=== PATIENT | female | born 1945 | race Caucasian/White ===

== ENCOUNTER 2022-12-23 10:56 | Outpatient (OUT) | payer OTHER, SELFPAY ==
--- NOTE | 2022-12-23 11:00 | XR_ITS ---
The [address] [address] Patient Name: ASHLYN CHIN MRN: [id number] date: 1945 Sex: F Assigned Patient Location: [facility] Current Patient Location: [facility] Accession/Order Number: [id number] Exam Date: 12/23/2022 11:20 Report Date: 12/23/2022 12:21 At the request of: DOMINIC HERBERT Procedure: XR DEXA axial skeleton EXAMINATION: XR DEXA axial skeleton HISTORY: Estrogen Deficiency E28.39 COMPARISON: DEXA bone densitometry 03/30/2018 TECHNIQUE: Dual-energy X-ray absorptiometry (DXA) was performed. FINDINGS: SPINE ANALYSIS: Average bone mineral density is 0.924 g/cm2. T-score (standard deviation relative to young adult mean): -2.3 . -0.6% change since prior study. HIP ANALYSIS: Lowest bone mineral density is within the left femoral neck, 0.714 g/cm2. T-score (standard deviation relative to young adult mean): -2.3 . -2.5% change since prior study. XR/XR DEXA axial skeleton IMPRESSION: [employer] Classification: Osteopenia - Moderate Fracture Risk Electronically authenticated by: CAROLINE QUIROGA Date: 12/23/2022 12:21
== END 2022-12-23 10:57 | disposition home or self-care (01) ==
LOC: RAD 10:56
PROVIDERS: PCP Internal Medicine; Visit Provider Internal Medicine
DX: E28.39 Other primary ovarian failure (principal); M85.80 Other specified disorders of bone density and structure, unspecified site
CPT/HCPCS: 77080

== ENCOUNTER 2023-07-09 14:26 | Outpatient (OUT) | payer MEDICARE, SELFPAY ==
--- NOTE | 2023-07-09 14:30 | MM_ITS ---
Patient Name: ASHLYN CHIN MR#: [id number] : 1945 Exam Date: 07/09/2023 Ordering Doctor: DR. JACKIE BELTRÁN M.D. RADIOLOGY REPORT PROCEDURE: MM TOMOSYNTHESIS SCREENING LT COMPARISON: MG MAMM DX 3D LT CAD, 05/28/2021. MG MAMM SCREEN LT 3D CAD, 06/03/2022. INDICATIONS: Screening Calculator Name NCI Breast Cancer Risk Assessment Tool 5 Year Breast Cancer Risk n/a% Lifetime Breast Cancer Risk n/a% Personal Breast Cancer Yes, BREAST CA RT BREAST AGE65 Personal Ovarian Cancer No Treatments MASECTOMY RT BREAST Family Cancers Sister with breast cancer at age 58; Aunt-maternal with breast cancer at age ~40. LOCATION: [facility] BREAST COMPOSITION: There are scattered areas of fibroglandular density. FINDINGS: DIAGNOSTIC CATEGORY 2--BENIGN FINDING. NO CHANGE FROM COMPARISON. Scattered benign-appearing calcifications are present. Scattered benign-appearing lymph nodes are present. RIGHT BREAST: No significant suspicious finding. LEFT BREAST: No significant suspicious finding. RECOMMENDATIONS: ROUTINE MAMMOGRAM AND CLINICAL EVALUATION IN 12 MONTHS. PLEASE NOTE: A NORMAL MAMMOGRAM DOES NOT EXCLUDE THE POSSIBILITY OF BREAST CANCER. A CLINICALLY SUSPICIOUS PALPABLE LUMP SHOULD BE BIOPSIED. Dictated by: Khoa Kennedy MD on 07/09/2023 at 14:57 Approved by: Khoa Kennedy MD on 07/09/2023 at 15:00
--- OUTSIDE RECORDS SUMMARY | 2023-07-09 14:40 | XMS_ITS | CCD ---
Author Organization [facility] Care Team Providers Care Channel Program Manager Name Role Phone SHAW FRANCOIS Unavailable Unavailable SHAW FRANCOIS Unavailable Unavailable SHAW FRANCOIS Unavailable Unavailable SHAW FRANCOIS Unavailable Unavailable Alessandro II Shaw Primary Care Provider DO Naya Weber Attending Provider Shaw Francois II Primary Care Provider ABGARRETT ALVAREZ Admitting Unavailable GARRETT BELTRÁN Attending DR SHAW Lopez Primary Care Unavailable TAINA, DR NAYA Lewis Consulting Unavailable ABHYANKAR, GARRETT Consulting Unavailable Shaw Francois II Primary Care Provider ABKIM, GARRETT Attending Unavailable LEIGH ANN, GARRETT Referring Unavailable SHAW FRANCOIS II Primary Care Unavailable GARRETT BELTRÁN Referring Unavailable SHAW FRANCOIS II Primary Care Unavailable JACINTO GARDNER Attending Unavailable JR. CYN, FRANCI Martinez Attending Unavaila ayde ADDISON JR., FRANCI Martinez Referring UnavailJeevan Burnette II Admitting UnavailJeevan Bryan II Attending UnavailShaw Avila Primary Care Unavailable MARIA ELENA Francois Primary Care Provider MD Jeevan Sanchez II Attending Provider Allergies Allergy Classification Reported Allergen(s) Allergy Type Date of Onset Reaction(s) Facility (3 sources) Sulfonamides (Antibiotic); Translations: [SULFA (SULFONAMIDE ANTIBIOTICS)] Drug Allergy 2 Rash, Swelling [facility] Work Phone: (1 source) Sulfonamides (Antibiotic) Drug allergy (disorder) 6 [facility] Repository (1 source) Sulfonamides (Antibiotic) Drug allergy (disorder) 2 [facility] Repository Medications Current Medications Medication Drug Class(es) Dates Sig (Normalized) Sig (Original) cholecalciferol 0.01 mg oral capsule (3 sources) Vitamin D Start: 05-22-2021 take 1 capsule by mouth once daily Cholecalciferol (Vitamin D3) (Vitamin D3) 10 mcg (400 unit) Capsule Active 10 MCG PO Daily May 22, 2021 12:00am Cholecalciferol, Vitamin D3, 25 mcg (1,000 unit) cap Take by mouth once daily. 0 Active Comment on above: Take by mouth once d aily. levothyroxine sodium 0.125 mg oral tablet (3 sources) l-Thyroxine Start: 03-13-19 take 1 tablet by mouth once daily Levothyroxine (Euthyrox) 125 mcg tablet Active 125 MCG PO Daily May 22, 2021 12:00am Comment on above: Take 125 mcg by mout h once daily. losartan potassium 25 mg oral tablet (3 sources) Angiotensin 2 Receptor Teri Start: 02-09-20 15 take 25 mg by mouth once daily Losartan Active 25 MG PO Daily May 22, 2021 12:00am Comment on above: Take 25 mg by mouth once daily. Multivitamin-Minerals- Lutein (1 source) Start: 05-23-19 22 take 1 tablet by mouth once daily Multivitamin-Minerals -Lutein Active 1 TAB PO Daily May 22, 2021 12:00am omeprazole 40 mg delayed release oral capsule (3 sources) Proton Pump Inhibitor Start: 06-26-19 24 take 1 capsule by mouth twice daily Omeprazole Active 1 CAP PO Twice daily June 26, 2023 12:00am [employer] CAPSULE Orally bid; Note: Source Status: Start; Refills: 11; Qty: 60 Capsule; Provider: Gus Severino omeprazole (PRIL OSEC) 20 mg capsule Take 20 mg by mouth once daily. Takes every other day. 0 Active Comment on above: Take 20 mg by mouth once daily. Takes every other day. sertraline 100 mg oral tablet (3 sources) Serotonin Reuptake Inhibitor Start: 05-22-2021 take 50 mg by mouth once daily Sertraline Active 50 MG PO Daily May 22, 2021 12:00am Start: 04-17-2011 take 1 tablet by maria de jesus th once daily sertraline (ZOLOFT) 50 mg tablet Take 1 tablet by mouth once daily. 0 04/17/2011 Active Comment on above: Take 1 tablet by maria de jesus th once daily. Completed/Discontinued Medications Medication Drug Class(es) Dates Sig (Normalized) Sig (Original) Multivitamins-Mine rals-Lutein (CENTRUM SILVER) ORAL Tab (1 source) Start: 04-17-2011 take 1 tablet by mouth once daily Multivitamins-Min erals-Lutein (CENTRUM SILVER) ORAL Tab Take 1 tablet by mouth once daily. 90 tablet 4 04/17/2011 Active Comment on above: Take 1 tablet by maria de jesus th once daily. Multivitamins-Mine rals-Lutein (CENTRUM SILVER) tab (1 source) Start: 04-17-2011 take 1 tablet by mouth once daily Multivitamins-Min erals-Lutein (CENTRUM SILVER) tab Take 1 tablet by mouth once daily. 90 tablet 4 04/17/2011 Active Comment on above: Take 1 tablet by maria de jesus th once daily. raNITIdine (2 sources) Histamine-2 Receptor Antagonist RANITIDINE HCL (ZANTAC ORAL) Take by mouth. 0 Active Comment on above: Take by mouth. Problems Active Problems Problem Classification Problem Date Documented Date Episodic/Chronic Cancer of breast (4 sources) Malignant neoplasm of female breast; Translations: [Malignant neoplasm of unspecified site of right female breast] Onset: 04-19-2011 Chronic Cancer of breast (2 sources) History of malignant neoplasm of breast; Translations: [Personal history of malignant neoplasm of breast] Onset: 06-10-2022 Episodic Esophageal disorders (2 sources) Gastroesophageal reflux disease; Translations: [Gastro-esophageal reflux disease without esophagitis] 01-22-2023 Chronic Osteoarthritis (2 sources) Osteoarthritis of right knee joint; Translations: [Unilateral primary osteoarthritis, right knee] 06-26-2023 Chronic Other lower respiratory disease (1 source) Abnormal breath sounds; Translations: [Other abnormalities of breathing] Episodic Other lower respiratory disease (1 source) Elevated diaphragm; Translations: [Disorders of diaphragm] Episodic Other non-traumatic joint disorders (1 source) Pain in left hip; Translations: [Pain in left hip] Onset: 06-26-2023 Episodic Other non-traumatic joint disorders (2 sources) Pain in right knee; Translations: [Right knee pain] Onset: 06-26-2023 06-25-2023 Episodic Other non-traumatic joint disorders (1 source) Hip pain; Translations: [Pain in left hip] 06-25-2023 Episodic Other screening for suspected conditions (not mental disorders or infectious disease) (2 sources) Patient encounter status; Translations: [Encounter for other screening for malignant neoplasm of breast] Episodic Past or Other Problems Problem Classification Problem Date Documented Da te Episodic/Chronic Other bone disease and musculoskeletal deformities (2 sources) Osteopenia; Translations: [Other specified disorders of bone density and structure, unspecified site] Onset: 07-27-2013 07-27-2013 Episodic Results Test Name Value Interpretation Reference Range Facility XR hip LT min 2V(w/wo pelvis )*on 06-26-2023 XR hip LT min 2V(w/wo pelvis)* [facility] [address] [place] [address] XRay Report Signed Patient: Nadia Chin MR#: [id number] : 1945 Acct:[id number] Age/Sex: 77 / F ADM Date: 06/26/23 Loc: [facility] Room: Type: [facility] Attending Dr: Jeevan Sanchez II, MD Copies to: Jeevan Sanchez MD Ordering Provider: Jeevan Sanchez MD Date of Service: 06/26/23 XR/XR hip LT min 2V(w/wo pelvis)*: M25.552 - Pain in left hip XR hip LT min 2V(w/wo pelvis)* 06/26/2023 12:25 PM SIGNS AND SYMPTOMS: M25.552 - Pain in left hip PROTOCOL: Frontal and crosstable lateral views of the pelvis and left hip COMPARISON: None FINDINGS: The bony ring of the pelvis is intact. There is no fracture or dislocation. There is mild enthesophyte formation along the ischial tuberosities. Changes are noted in the sacroiliac joints, left greater than right. Degenerative changes are noted in the lower lumbar spine. XR/XR hip LT min 2V(w/wo pelvis)* IMPRESSION: No fracture or dislocation. Degenerative changes are noted, greatest in the left sacroiliac joint. Impression dictated by: Ashwin Brown M.D.06/26/2023 4:03 PM Dictation Location: RADIO-PC-07 Transcribed By: MATIAS 06/26/23 160 Dictated By: Ashwin Brown II, MD 06/26/231600 Signed By: 06/26/23 160 Normal [facility] XR knee RT 4V*on 06-26-2023 XR knee RT 4V* [facility] [address] [place] [address] XRay Report Signed Patient: Nadia Chin MR#: [id number] : 1945 Acct:[id number] Age/Sex: 77 / F ADM Date: 06/26/23 Loc: [facility] [place] Room: Type: [facility] Attending Dr: Jeevan Sanchez II, MD Copies to: Jeevan Sanchez MD Ordering Provider: Jeevan Sanchez MD Date of Service: 06/26/23 XR/XR knee RT 4V*: M25.561 - Pain in right knee 4 views right knee plain film COMPARISON: None HISTORY: Right knee pain for one year. ACUTE FINDINGS: No acute findings DEGENERATIVE CHANGE: Marked narrowing of the lateral compartment. Marginal spurring. SOFT TISSUE FINDINGS: Unremarkable JOINT EFFUSION: Tiny joint effusion POSTOP CHANGES: None BONE MINERALIZATION: Adequate XR/XR knee RT 4V* IMPRESSION: Moderate multilevel degenerative changes Impression dictated by: Max Gates M.D.06/26/2023 4:01 PM Dictation Location: RADIO-PC-12 Transcribed By: MATIAS 06/26/23 160 Dictated By: Max Gates DO 06/26/23 1559 Signed By: 06/26/23 160 Normal [facility] CNOVSPon 06-10-2022 CNOVSP Visit (SP) Office ([facility]) NADIA CHIN ([id number]) 1945 F Date Time Provider Department 06/10/22 10:30 AM GARRETT BELTRÁN During your visit today, we recorded the following information about you: Temperature Pulse Respiration Blood pressure 97.4 degrees 68/minute 16/minute 133/63 Weight Height 80.7 kg 1.68 m Garrett Beltrán MD 06/16/2022 4:20 PM Signed NAME: Nadia Chin CLINIC NO.: [id number] DATE OF SERVICE: June 10, 2022 (Leigh Ann) Some elements in this clinic note that are critical to medical decision making have been carefully reviewed and included from a prior clinic note dated: June 04, 2021 Referring Provider: Shaw Francois II CC: Right breast cancer ER/OR positive, HER-2/crescencio negative diagnosed May 2011. ASSESSMENT: 76 year old woman with early stage right breast cancer receiving no radiation and having completed 5 years of adjuvant hormone suppression in June 2016, with no evidence of recurrence. The fairly large thyroid nodule was evaluated by Dr. Hall in late 2019 and has required no intervention. PLAN: RTC PRN Order mammogram Left side in 1 year but CC: to Dr. Francois and Follow up with Dr. Francois for labs and exam in 1 year. HPI: Updated Visit, June 10, 2022: Doing well with no changes. No complaints. Exam completed today and noted below. She is 11 years out and will follow with us as needed. Updated Visit, June 04, 2021: Nadia is 75 yo and returns for follow up of Rt breast cancer. She has no complaints and continues to do well. Mammogram is benign. 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 She didn't have a Mammogram this past year and so we will reschedule to for 6 months and I will see her again. Her biggest complaint is bilateral knee pain especially in the mornings. Updated Visit, 2019: Nadia is 74 yo and returns in follow up for her history of right breast cancer which was diagnosed after an abnormal mammogram in 2011. The biopsy of a 1.1 cm right breast lesion at 12:00 was consistent with invasive ductal carcinoma with DCIS. Receptor status ER OR positive. HER-2/crescencio was negative. Coleman lymph nodes were negative. Mastectomy done 05/14/2011 also showed a 0.5 cm grade 2 ER/OR positive HER-2/crescencio negative invasive ductal carcinoma with 0 lymph nodes positive for disease. She completed 5 years of hormone therapy with anastrozole in June 2016. Her Oncotype DX score was 3. She received no radiation or chemotherapy. 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 Ultrasound of the neck demonstrates greater than 2-1/2 cm nodules that will need to be worked up. Dyspnea appears to be resolved. REVIEW OF SYSTEMS Per HPI and otherwise negative by full review of organ systems. ECOG PERFORMANCE STATUS: 0 PHYSICAL EXAMINATION: Vitals: BP 133/63 Pulse 68 Temp (Src) 97.4 (Temporal) Resp 16 Ht 5' 6.142 (1.68m) Wt 178 lb (80.7kg) SpO2 97% BMI 28.61 kg/(m2). Body surface area is 1.94 meters squared. Exam limited to gross visualization where appropriate. Gen.: This is an age-appropriate patient in no acute distress. Head: Appears atraumatic with no visible lesions. Eyes: Pupils equally round and reactive to light, extraocular muscles are intact. Neck: Supple. Mouth: Masked. Respiratory: Appears to be respiring comfortably. Neurologic: Nonfocal to gross visualization. Alert and oriented ?3. Psychiatric: No evidence of inappropriate anxiety or depression. Skin: Visible areas of skin without rash, lesions, wounds or petechiae. Lymph node exam: No appreciable lymphadenopathy in cervical supraclavicular or axillary lymph node chains. Chaperoned Breast exam (Itzel Lua) with right mastectomy scar and normal left female breast. ALLERGIES: ALLERGIES Allergen Reactions Sulfa (Sulfonamide * Rash, Swelling MEDICATIONS: omeprazole (PRILOSEC) 20 mg capsule Take 20 mg by mouth once daily. Takes every other day. levothyroxine (SYNTHROID) 125 mcg tablet Take 125 mcg by mouth once daily. losartan (COZAAR) 25 mg tablet Take 25 mg by mouth once daily. Cholecalciferol, Vitamin D3, 25 mcg (1,000 unit) cap Take by mouth once daily. sertraline (ZOLOFT) 50 mg tablet Take 1 tablet by mouth once daily. Multivitamins-Minerals -Lutein (CENTRUM SILVER) tab Take 1 tablet by mouth once daily. RANITIDINE HCL (ZANTAC ORAL) Take by mouth. (Patient not taking: Reported on 06/10/2022) LABORATORY VALUES: WBC (k/uL) Date Value 06/04/2021 6.65 RBC (m/uL) Date Value 06/04/2021 4.61 Hemoglobin (g/dL) Date Value 06/04/2021 (more content not included)... Normal [facility] MG MAMM SCREEN LT 3D CADon 0 06-03-2022 MG MAMM SCREEN LT 3D CAD Patient: NADIA CHIN Exam Date: 06/03/2022 : 1945 Gender:F Ordering : DR. GARRETT BELTRÁN M.D. Admission #: [id number] Family : DR SHAW FRANCOIS M.D. Order #: [id number] CLICK HERE TO VIEW EXAM RADIOLOGY REPORT PROCEDURE: MAMMOGRAM SCREENING LEFT 3D CAD COMPARISON: MG MAMM LT DIAG W CAD, 10/20/2019. MG MAMM DX 3D LT CAD, 05/28/2021. INDICATIONS: Screening mammography Calculator Name NCI Breast Cancer Risk Assessment Tool 5 Year Breast Cancer Risk n/a% Lifetime Breast Cancer Risk n/a% Personal Breast Cancer Yes, BREAST CA RT BREAST AGE65 Personal Ovarian Cancer No Treatments MASECTOMY RT BREAST Family Cancers Sister with breast cancer at age 58; Aunt-maternal with breast cancer at age 40. LOCATION: [facility] BREAST COMPOSITION: Scattered areas fibroglandular density. FINDINGS: DIAGNOSTIC CATEGORY 2--BENIGN FINDING. NO CHANGE FROM COMPARISON. LEFT BREAST: No significant suspicious finding. Scattered benign-appearing calcifications are present. RECOMMENDATIONS: ROUTINE MAMMOGRAM AND CLINICAL EVALUATION IN 12 MONTHS. PLEASE NOTE: A NORMAL MAMMOGRAM DOES NOT EXCLUDE THE POSSIBILITY OF BREAST CANCER. A CLINICALLY SUSPICIOUS PALPABLE LUMP SHOULD BE BIOPSIED. Dictated by: Naya eKnnedy MD on 06/03/2022 at 11:46 Approved by: Naya Kennedy MD on 06/03/2022 at 11:55 Normal [facility] COVID-19 Positive/NegativeOr dered By: Naya Weber on 05-21-2021 SARS-CoV-2 (COVID-19) N gene ALBINA+probe Ql (Resp) Negative Negative [facility] Comment on above: Testing for SARS-CoV -2 by RT-PCRThis test was developed and its performance characteristics determined by [employer] and validated at the [facility]. This test has not been FDA cleared or approved. This test has been authorized by FDA under an Emergency Use Authorization (EUA). This test has been validated in accordance with the FDA's Guidance Document (Policy for Diagnostics Testing in Laboratories Certified to Perform High Complexity Testing under CLIA prior to Emergency Use Authorization for Coronavirus Disease-2019 during the Public Health Emergency) issued on May 13, 2019. This test is only authorized for the duration of time the declaration that circumstances exist justifying the authorization of the emergency use of in vitro diagnostic tests for detection of SARS-CoV-2 virus and/or diagnosis of COVID-19 infection under section 564(b)(1) of the Act, 21 U.S.C. 360bbb-3(b)(1), unless the authorization is terminated or revoked sooner. C-Reactive Proteinon 022 CRP IV <0.3 Normal [facility] Comment on above: Performed By: #### C BC, CRP, ESR, RF, CMP, URIC #### [facility] [address] [place], [place] [id number] Complete Blood Counton 04-25 Erythrocyte distribution width (RBC) [Ratio] 12.8 % Normal 11.0-15.0 [facility] Comment on above: Performed By: #### C BC, CRP, ESR, RF, CMP, URIC #### [facility] [address] [place], [place] [id number] Hematocrit (Bld) [Volume fraction] 43.7 % Normal 35.0-47.0 [facility] Comment on above: Performed By: #### C BC, CRP, ESR, RF, CMP, URIC #### [facility] [address] [place], [place] [id number] Hemoglobin (Bld) [Mass/Vol] 14.5 g/dL Normal 11.6-15.5 [facility] Comment on above: Performed By: #### C BC, CRP, ESR, RF, CMP, URIC #### [facility] [address] [place], [place] [id number] MCH (RBC) [Entitic mass] 29.5 pg Normal 27.0-33.0 [facility] Comment on above: Performed By: #### C BC, CRP, ESR, RF, CMP, URIC #### [facility] [address] [place], [place] [id number] MCHC (RBC) [Mass/Vol] 33.2 g/dL Normal 32.0-36.0 [facility] Comment on above: Performed By: #### C BC, CRP, ESR, RF, CMP, URIC #### [facility] [address] [place], [place] [id number] MCV (RBC) [Entitic vol] 89 fL Normal 80-100 [facility] Comment on above: Performed By: #### C BC, CRP, ESR, RF, CMP, URIC #### [facility] [address] [place], [place] [id number] Platelet mean volume (Bld) [Entitic vol] 9.00 fL Normal 7.50-12.50 [facility] Comment on above: Performed By: #### C BC, CRP, ESR, RF, CMP, URIC #### [facility] [address] [place], [place] [id number] Platelets (Bld) [#/Vol] 201 10*3/uL Normal 140-400 [facility] Comment on above: Performed By: #### C BC, CRP, ESR, RF, CMP, URIC #### [facility] [address] [place], [place] [id number] RBC (Bld) [#/Vol] 4.92 10*6/uL Normal 3.90-5.20 [facility] Comment on above: Performed By: #### C BC, CRP, ESR, RF, CMP, URIC #### [facility] [address] [place], [place] [id number] RDW-SD 41.6 fL Normal 37.0-50.0 [facility] Comment on above: Performed By: #### C BC, CRP, ESR, RF, CMP, URIC #### [facility] [address] [place], [place] [id number] WBC (Bld) [#/Vol] 7.3 10*3/uL Normal 3.8-11.0 [facility] [place] [facility] Comment on above: Performed By: #### C BC, CRP, ESR, RF, CMP, URIC #### [facility] [address] [place], [place] [id number] Comprehensive Metabolic Pane brittni 04-25-2021 Albumin [Mass/Vol] 4.5 g/dL Normal 3.6-5.1 Lilian prabhakar [place] [facility] Comment on above: Performed By: #### C BC, CRP, ESR, RF, CMP, URIC #### [facility] [address] [place], [place] [id number] Albumin/Globulin [Mass ratio] 2.1 {ratio} Normal 1.0-2.5 [facility] Comment on above: Performed By: #### C BC, CRP, ESR, RF, CMP, URIC #### [facility] [address] [place], [place] [id number] ALP [Catalytic activity/Vol] 64 U/L Normal 35-119 [facility] Comment on above: Performed By: #### C BC, CRP, ESR, RF, CMP, URIC #### [facility] [address] [place], [place] [id number] ALT [Catalytic activity/Vol] 12 U/L Normal 6-33 [facility] Comment on above: Result Comment: 01/10 Female reference range changed. Performed By: #### C BC, CRP, ESR, RF, CMP, URIC #### [facility] [address] [place], [place] [id number] Anion gap [Moles/Vol] 17 mmol/L Normal 12-20 [facility] Comment on above: Result Comment: Effe ctive 02/15/2019 reference range changed. Performed By: #### C BC, CRP, ESR, RF, CMP, URIC #### [facility] [address] [place], [place] [id number] AST [Catalytic activity/Vol] 14 U/L Normal 9-34 [facility] Comment on above: Performed By: #### C BC, CRP, ESR, RF, CMP, URIC #### [facility] [address] [place], [place] [id number] Bilirubin [Mass/Vol] 0.67 mg/dL Normal 0.30-1.20 [facility] Comment on above: Performed By: #### C BC, CRP, ESR, RF, CMP, URIC #### [facility] [address] [place], [place] [id number] BUN/CREA 22 Ratio Normal 6-22 [facility] Comment on above: Performed By: #### C BC, CRP, ESR, RF, CMP, URIC #### [facility] [address] [place], [place] [id number] Calcium [Mass/Vol] 9.2 mg/dL Normal 8.6-10.2 [facility] Comment on above: Performed By: #### C BC, CRP, ESR, RF, CMP, URIC #### [facility] [address] [place], [place] [id number] Chloride [Moles/Vol] 104 mmol/L Normal 98-107 [facility] Comment on above: Performed By: #### C BC, CRP, ESR, RF, CMP, URIC #### [facility] [address] [place], [place] [id number] CO2 [Moles/Vol] 24 mmol/L Normal 20-31 [facility] Comment on above: Performed By: #### C BC, CRP, ESR, RF, CMP, URIC #### [facility] [address] [place], [place] [id number] Creatinine [Mass/Vol] 0.7 mg/dL Normal 0.6-1.4 [facility] Comment on above: Performed By: #### C BC, CRP, ESR, RF, CMP, URIC #### [facility] [address] [place], [place] [id number] eGFRAA 95 mL/min/1.73m2 Normal >60 [facility] Comment on above: Performed By: #### C BC, CRP, ESR, RF, CMP, URIC #### [facility] [address] [place], [place] [id number] eGFRNAA 79 mL/min/1.73m2 Normal >60 [place] [facility] Comment on above: Performed By: #### C BC, CRP, ESR, RF, CMP, URIC #### [facility] [address] [place], [place] [id number] Globulin (S) [Mass/Vol] 2.1 g/dL Normal 1.9-3.7 [facility] Comment on above: Performed By: #### C BC, CRP, ESR, RF, CMP, URIC #### [facility] [address] [place], [place] [id number] Glucose [Mass/Vol] 98 mg/dL Normal 65-99 [facility] Comment on above: Result Comment: For FASTING Glucose --- ADA reference ranges: Normal 65-99 mg/dl Prediabetes 100-125 Diabetes >/= 126 Performed By: #### C BC, CRP, ESR, RF, CMP, URIC #### [facility] [address] [place], [place] [id number] Potassium [Moles/Vol] 4.2 mmol/L Normal 3.5-5.5 [facility] Comment on above: Performed By: #### C BC, CRP, ESR, RF, CMP, URIC #### [facility] [address] [place], [place] [id number] Protein [Mass/Vol] 6.6 g/dL Normal 6.1-8.1 [facility] Comment on above: Performed By: #### C BC, CRP, ESR, RF, CMP, URIC #### [facility] [address] [place], [place] [id number] Sodium [Moles/Vol] 141 mmol/L Normal 135-146 [facility] Comment on above: Performed By: #### C BC, CRP, ESR, RF, CMP, URIC #### [facility] [address] [place], [place] [id number] Urea nitrogen [Mass/Vol] 16 mg/dL Normal 7-25 [facility] Comment on above: Performed By: #### C BC, CRP, ESR, RF, CMP, URIC #### [facility] [address] [place], [place] [id number] Q - CARRIE MULTIPLEX W/ REFLEX TO 11 ANTIBODY CASCADEon 03-16-2022 ANACHOICE(R) SCREEN Negative Normal NEGATIVE [facility] Comment on above: Order Comment: [facility] Testing performed at: [facility], [employer] [facility], [address], [address], [place], [address], Nutrient Management Specialist: Joe Hickey MD [facility] Collection Date/Time: [facility] Results Received Date/Time: [facility] Reported Date/Time: Result Comment: A ne gative CARRIE Multiplex, with Reflex to 11 Antibody Webb indicates the absence of detectable antibodies to component analytes consisting of double stranded DNA (dsDNA), chromatin, ribonucleoprotein (DIRECTOR OF IT OPERATIONS), Boyd/DIRECTOR OF IT OPERATIONS (Sm/DIRECTOR OF IT OPERATIONS), Boyd (Sm), SS-A, SS-B, Ruma-1, centromere B, Scl-70 and ribosomal P. A negative result should be interpreted in the context of the clinical and laboratory findings and does not rule out autoimmune disease characterized by other autoantibody specificities such as rheumatoid arthritis, autoimmune hepatitis, primary biliary cirrhosis, autoimmune thyroiditis, Inocente's disease, pernicious anemia, autoimmune neuropathies, vasculitis, celiac disease, and bullous disease. For additional information, please refer to [email or web address]/faq/RIL326 (This link is being provided for informational/ educational purposes only.) Performed By: #### 1 [id number] #### [facility] [address] [place] [address] RBC Sedimentation Rateon ESR (Bld) [Velocity] 7.00 mm/h Normal 0.00-30.00 [facility] Comment on above: Performed By: #### C BC, CRP, ESR, RF, CMP, URIC #### [facility] [address] [place] [id number] Rheumatoid Factoron 04-26-19 RF <10 Normal [facility] Comment on above: Performed By: #### C BC, CRP, ESR, RF, CMP, URIC #### [facility] [address] [id number] Uric Acidon 04-25-2021 URIC 4.8 mg/dL Normal 2.5-7.0 [facility] Comment on above: Result Comment: Refe rence range change 12/27/2016. Prior reference range F 2.4-5.7mg/dL. M 3.4-7.0 mg/dL. Performed By: #### C BC, CRP, ESR, RF, CMP, URIC #### [facility] [address] [facility] KATY Dotson [id number] Linda 10-03-2019 CNPN Telephone (FVPRAD) NADIA CHIN ( ) 1945 F Date Time Provider Department 10/03/19 KENNEDY GALAN FVPRAD During your visit today, we recorded the following information about you: Kennedy Galan MD 10/03/2019 1:30 PM Signed Please call the patient and pass on the [employer] message I wrote today to her (in case she does not check my chart). Please send a copy of her CT chest to Dr Beltrán's office with a request to follow-up on the thyroid, kidney and breast abnormalities. Thank you, Kennedy Bruce LPN 10/04/2019 8:[address] Mckeon is with [facility] at [facility] in [place]. LVM with office triage nurse to have review CT in patients chart. Gave nurse pod extension if any further questions. Allergies As of Date: 10/03/2019 Noted Allergy Reaction SULFA (SULFONAMIDE ANTIBIOTICS) 04/17/2011 2 - Rash 7 - Swelling Date Reviewed: 07/26/2019 Reviewed by: Paty (Rn) DEBI Lerma - Fully Assessed Reason for Visit: to [Other] Prescriptions as of 10/03/2019 Sig: OMEPRAZOLE 20 MG CAPSULE,ELICEO* Take 20 mg by mouth once jennyfer* LEVOTHYROXINE 100 MCG TABLET Take 100 mcg by mouth once da* ZANTAC ORAL Take by mouth. LOSARTAN 25 MG TABLET Take 25 mg by mouth once jennyfer* * CHOLECALCIFEROL (VITAMIN D3) * Take by mouth once daily. * SERTRALINE 50 MG TABLET Take 1 tablet by mouth once d* * MULTIVITAMIN-MINERALS- LUTEIN * Take 1 tablet by mouth once d* Problem List As Of Date 10/03/2019 Noted Resolved Breast cancer, right breast [C50.911] 04/19/2011 Osteopenia [M85.80] 07/27/2013 Encounter Status:Closed by SAMANTHA ZACARIAS LPN on 11/15/[address] [facility] [address] CHEST WO IVCONon 09-28-[address] CHEST WO IVCON * * *Final Report* * * * * * SEE BOTTOM OF REPORT FOR ADDENDED TEXT * * * DATE OF EXAM: Sep 28 2019 9:28AM [facility] 0541 - CT CHEST WO IVCON / PROCEDURE REASON: Shortness of breath * * * * Physician Interpretation * * * * * * * * * * * * ORIGINAL REPORT * * * * * * * * EXAMINATION: CHEST CT WITHOUT CONTRAST CLINICAL HISTORY: History of right breast cancer in 2011 status post mastectomy and hormonal therapy. ?No radiation or chemotherapy was necessary; exertional dyspnea; question right middle lobe atelectasis and elevated right hemidiaphragm Technique: Spiral CT acquisition of the chest from the thoracic inlet to the upper abdomen without contrast. MQ: [id number] CT Dose-Length Product: 249 mGy*cm CT Dose Reduction Employed: Automated exposure control (AEC) Comparison: Chest x-rays dated 07/02/2019, 04/17/2019; outside left screening mammogram dated 04/05/2019 RESULT: Limitations: None. Lines, tubes, and devices: None. Lung parenchyma and airways: No consolidation. No suspicious pulmonary nodule. The central airways are patent. Pleural space: No pleural effusion. No pleural thickening. There is mild eventration of the right hemidiaphragm anteriorly, stable since 04/17/2011. Lower neck, lymph nodes, and mediastinum: The left thyroid lobe is greater than the right. There are 0.9 cm hypodense right lower thyroid lesion and 1.8 cm hypodense left lower thyroid lesion. No lymphadenopathy in the supraclavicular, axillary, mediastinal, or hilar regions. Heart, pericardium, and thoracic vessels: The thoracic aorta and main pulmonary artery are normal in caliber. The cardiac chambers are normal in size. Mild coronary artery atherosclerotic calcifications are noted, although the study is not optimized for coronary assessment. There is mild pericardial effusion anteriorly. Bones and soft tissues: There is mild degenerative change of the thoracic spine. No destructive bone lesion. Chest wall is unremarkable. The right breast is surgically absent. There is 1.5 cm asymmetric left retroareolar breast parenchyma (2:84). Suggest clinical correlation and consider follow-up left diagnostic mammogram and possible left breast ultrasound if indicated. Upper abdomen: There is 3.3 x 2.8 cm hypodense cortical lesion in the visualized right upper kidney medially, suggestive of renal cyst and can be further evaluated with renal ultrasound. Production Painter (topogram) images: No additional findings. IMPRESSION: NO CT EVIDENCE OF ACUTE CARDIOPULMONARY PROCESS. NO CT EVIDENCE OF RIGHT MIDDLE LOBE ATELECTASIS. MILD EVENTRATION OF THE RIGHT HEMIDIAPHRAGM ANTERIORLY, STABLE SINCE 04/17/2011. 0.9 CM HYPODENSE RIGHT LOWER THYROID LESION AND 1.8 CM HYPODENSE LEFT LOWER THYROID LESION. SUGGEST THYROID ULTRASOUND FOR ADDITIONAL EVALUATION. FINDINGS SUGGESTIVE OF 3.3 X 2.8 CM RIGHT UPPER RENAL CORTICAL CYST MEDIALLY. SUGGEST RENAL ULTRASOUND FOR ADDITIONAL EVALUATION. 1.5 CM ASYMMETRIC LEFT RETROAREOLAR BREAST PARENCHYMA. SUGGEST CLINICAL CORRELATION AND CONSIDER FOLLOW-UP LEFT DIAGNOSTIC MAMMOGRAM AND POSSIBLE LEFT BREAST ULTRASOUND IF INDICATED. Incidental Finding: Follow-up with dedicated thyroid Ultrasound for this small < 1.0cm incidentally detected thyroid nodule(s) in a patient with INSERT MEDICAL REASON. [employer] 2015 * * * * * * * * ADDENDUM #1 * * * * * * * * COMPARISON: Chest x-rays dated 07/02/2019, 04/17/2011; outside left screening mammogram dated 04/05/2019 Heating And Ventilating Drafter: PSCKristine Transcribe Date/Time: Sep 28 2019 10:35A Dictated by : BILLIE EISENBERG MD This examination was interpreted and the report reviewed and electronically signed by: BILLIE EISENBERG MD on Sep 28 2019 9:50AM EST This document has been addended by: BILLIE EISENBERG MD on Sep 28 2019 10:36AM EST [id number] Normal [facility] GI FLUORO CHEST SNIFF TESTon 09-28-2019 GI FLUORO CHEST SNIFF TEST * * *Final Report* * * DATE OF EXAM: Sep 28 2019 10:15AM X 5536 - GI FLUORO CHEST SNIFF TEST / PROCEDURE REASON: multiple diagnoses * * * * Physician Interpretation * * * * FLUOROSCOPIC SNIFF TEST: HISTORY: Dyspnea on exertion, elevated right hemidiaphragm TECHNIQUE: Video Fluoroscopy was provided while the patient's breathing quietly at rest, deep breathing and rapid inspiration with a closed mouth (sniffs), in frontal and lateral standing position. Fluoroscopic Radiation Summary: Plane A, Air Kerma: 14.5 mGy Plane B, Air Kerma: 0.0 mGy Dose Area Product (DAP): 0.0 mGy*cm^2 Fluoro time: 0:38 min:sec COMPARISON: Chest CT from the same day, chest x-rays dated 07/02/2019, 04/17/2011 RESULT: There is anterior eventration of the right hemidiaphragm. There is symmetric bilateral diaphragmatic movement during quiet breathing, deep breathing and sniff test. IMPRESSION: ANTERIOR EVENTRATION OF THE RIGHT HEMIDIAPHRAGM. NO FLUOROSCOPIC EVIDENCE OF RIGHT DIAPHRAGMATIC PARALYSIS. Heating And Ventilating Drafter: PSCB Transcribe Date/Time: Sep 28 2019 10:30A Dictated by : BILLIE EISENBERG MD This examination was interpreted and the report reviewed and electronically signed by: BILLIE EISENBERG MD on Sep 28 2019 10:35AM EST [id number] [facility] PROGRESSon 09-28-2019 PROGRESS HNO ID: [id number] Author: Lima Ambrocio (Rt) Service: Radiology Author Type: Baseball Inspector Type: Progress Notes Filed: 09/28/2019 10:19 AM Note Text: Radiology Service Progress Note PATIENT NAME: Nadia Chin DATE OF SERVICE: September 28, 2019 TIME: 10:18 AM PATIENT IDENTITY VERIFICATION COMPLETED USING TWO (2) IDENTIFIERS: Name and Date of confirmed by patient verbally. FALL SCREENING: Has the patient had 2 falls in the last year or 1 fall with injury or currently using an Ambulatory Assistive Device (Walker, Cane, Wheelchair, Crutches, etc.)? No PATIENT GENDER DATA: Female. status: : No status: NO. PATIENT RELEVANT IMPLANT DATA REVIEWED: Not Applicable RADIOLOGY DEPARTMENT: General X-ray: Exam(s) Completed: GI/ Procedure(s): SNIFF TEST PERIPHERAL IV DATA: Not applicable SIGNED BY: RT Zee September 28, 2019 10:18 AM [facility] PROGRESS HNO ID: [id number] Author: Cathi Robles (Rt) Service: Radiology Author Type: Baseball Inspector Type: Progress Notes Filed: 09/28/2019 9:28 AM Note Text: Radiology Service Progress Note PATIENT NAME: Nadia Chin DATE OF SERVICE: September 28, 2019 TIME: 9:25 AM PATIENT IDENTITY VERIFICATION COMPLETED USING TWO (2) IDENTIFIERS: Name and Date of confirmed by patient verbally. FALL SCREENING: Has the patient had 2 falls in the last year or 1 fall with injury or currently using an Ambulatory Assistive Device (Walker, Cane, Wheelchair, Crutches, etc.)? No PATIENT GENDER DATA: Female. status: : No status: NO. PATIENT RELEVANT IMPLANT DATA REVIEWED: Not Applicable RADIOLOGY DEPARTMENT: CT; Exam(s) Completed: Chest PERIPHERAL IV DATA: Not applicable SIGNED BY: RT Lokesh September 28, 2019 9:25 AM [facility] Coding Summary.on 05-09-2017 Coding Summary. CODING DATE: 05/09/2017 FINAL [facility] STATUS: Home (Routine DC) PAYOR: Medicare APC DESCRIPTION 5523 Level 3 Imaging without Contrast ADMIT DX: REASON FOR VISIT DX: M54.12 Radiculopathy, cervical region FINAL DX: PRINCIPAL: M54.12 Radiculopathy, cervical region SECONDARY: PYMT PROC APC STAT DESCRIPTION DOCTOR NAME DATE NOTE: The code number assigned matches the documented diagnosis and / or procedure in the patient's chart. However, the narrative phrase printed from the coding software may appear abbreviated, or result in slightly different terminology. Coded By: Katya Navarrete Date Saved: 05/09/2017 07:09 am [facility] Vital Signs Date Time Vital Sign Value Performing Clinician Facility 06-26-2023 11:43-0400 Body height 170.18 cm II Shaw Francois Work Phone: [facility] 06-26-2023 11:43-0400 Body mass index (BMI) [Ratio] 27.3 kg/m2 MARIA ELENA Francois Work Phone: [facility] 06-26-2023 11:43-0400 Body weight 79.37 kg II Shaw Francois Work Phone: [facility] 06-10-2022 10:20-0400 Body height 168 cm Garrett Beltrán MD Work Phone: [facility] 06-10-2022 10:20-0400 Body temperature 97.39 [degF] Garrett Beltrán MD Work Phone: [facility] 06-10-2022 10:20-0400 Body weight 80.74 kg Garrett Beltrán MD Work Phone: [facility] 06-10-2022 10:20-0400 Diastolic blood pressure 63 mm[Hg] Garrett Beltrán MD Work Phone: [facility] 06-10-2022 10:20-0400 Heart rate 68 /min Garrett Beltrán MD Work Phone: [facility] 06-10-2022 10:20-0400 Respiratory rate 16 /min Garrett Beltrán MD Work Phone: [facility] 06-10-2022 10:20-0400 SaO2% (BldA) [Mass fraction] 97 % Garrett Beltrán MD Work Phone: [facility] 06-10-2022 10:20-0400 Systolic blood pressure 133 mm[Hg] Garrett Beltrán MD Work Phone: [facility] 06-04-2021 10:09-0400 Body height 168 cm Garrett Beltrán MD Work Phone: [facility] 06-04-2021 10:09-0400 Body temperature 97.5 [degF] Garrett Beltrán MD Work Phone: [facility] 06-04-2021 10:09-0400 Body weight 83.01 kg Garrett Beltrán MD Work Phone: [facility] 06-04-2021 10:09-0400 Diastolic blood pressure 53 mm[Hg] Garrett Beltrán MD Work Phone: [facility] 06-04-2021 10:09-0400 Heart rate 66 /min Garrett Beltrán MD Work Phone: [facility] 06-04-2021 10:09-0400 Respiratory rate 16 /min Garrett Beltrán MD Work Phone: [facility] 06-04-2021 10:09-0400 SaO2% (BldA) [Mass fraction] 95 % Garrett Beltrán MD Work Phone: [facility] 06-04-2021 10:09-0400 Systolic blood pressure 128 mm[Hg] Garrett Beltrán MD Work Phone: [facility] Encounters Encounter Date Encounter Type Care Provider Facility Start: 06-26-2023 End: 06-26-2023 Patient encounter procedure II Shaw Francois Work Phone: [facility] Work Phone: Start: 06-26-2023 End: 06-26-2023 ambulatory Jeevan Sanchez II Facility:[facility] Start: 06-26-2023 End: 06-26-2023 ambulatory II Shaw Francois Work Phone: [facility] Work Phone: Start: 06-26-2023 End: 06-26-2023 Patient encounter procedure II Shaw Francois Work Phone: [facility] Start: 04-23-2023 End: 04-23-2023 ambulatory FRANCI LAMB Not Available Start: 04-15-2023 End: 04-15-2023 ambulatory JACINTO GARDNER Not Available Start: 12-18-2022 End: 12-19-2022 ambulatory FRANCI LAMB Not Available Start: 06-10-2022 End: 06-10-2022 ambulatory GARRETT BELTRÁN Facility:[facility] Start: 06-10-2022 End: 06-10-2022 Office outpatient visit 25 minutes Garrett Beltrán MD Work Phone: Hematology/Oncology Comment on above: History of breast ca ncer (Primary Dx); Breast screening; Malignant 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, estrogen receptor positive, unspecified site of breast (HCC) Start: 06-03-2022 End: 06-04-2022 ambulatory GARRETT BELTRÁN Facility: Start: 06-04-2021 End: 06-04-2021 ambulatory Garrett Beltrán MD Work Phone: Hematology/Oncology Comment on above: Breast screening (Pr imary Dx); Malignant 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, estrogen receptor positive, unspecified site of breast (HCC); Abnormal breath sounds; Elevated hemidiaphragm Start: 06-04-2021 End: 06-04-2021 Patient encounter procedure Garrett Beltrán MD Work Phone: [facility] Start: 05-21-2021 End: 05-21-2021 Patient encounter procedure II Shaw Francois Work Phone: [facility] Start: 05-08-2017 End: 05-09-2017 Ambulatory SHAW FRANCOIS Facility:[facility] Procedures Date Procedure Procedure Detail Performing Clinician Start: 06-26-2023 Plain X-ray of left hip II Shaw Francois Work Phone: Start: 06-26-2023 X-ray of right knee II Shaw Francois Work Phone: Start: 2019 Adult depression screening assessment Garrett Beltrán MD Work Phone: Plan of Treatment Date Care Activity Detail Author Start: 06-04-2024 DIABETES SCREEN DIABETES SCREEN [facility] Start: 06-11-2023 End: 06-11-2023 CBC W Auto Differential panel - Blood CBC + DIFF Lab Routine Breast screening Expected: 06/11/2023 (Approximate), Expires: 06/11/2023 [facility] Work Phone: Comment on above: Expected: 06/11/2023 (Approximate), Expires: 06/11/2023 Start: 06-11-2023 End: 06-11-2023 Comprehensive metabolic 2000 panel - Serum or Plasma COMP METABOLIC PANEL Lab Routine Breast screening Expected: 06/11/2023 (Approximate), Expires: 06/11/2023 [facility] Work Phone: Comment on above: Expected: 06/11/2023 (Approximate), Expires: 06/11/2023 Start: 06-11-2023 End: 07-10-2023 TORRES SCREENING TORRES SCREENING Radiology Routine Breast screening Expected: 06/11/2023 (Approximate), Expires: 07/10/2023 [facility] Work Phone: Comment on above: Expected: 06/11/2023 (Approximate), Expires: 07/10/2023 Start: 06-03-2022 End: 06-04-2022 CBC W Auto Differential panel - Blood CBC + DIFF Lab Routine Breast screening Malignant 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, estrogen receptor positive, unspecified site of breast (HCC) Expected: 06/03/2022 (Approximate), Expires: 06/04/2022 [facility] Work Phone: Comment on above: Expected: 06/03/2022 (Approximate), Expires: 06/04/2022 Start: 06-03-2022 End: 06-04-2022 Comprehensive metabolic 2000 panel - Serum or Plasma COMP METABOLIC PANEL Lab Routine Breast screening Malignant 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, estrogen receptor positive, unspecified site of breast (HCC) Expected: 06/03/2022 (Approximate), Expires: 06/04/2022 [facility] Work Phone: Comment on above: Expected: 06/03/2022 (Approximate), Expires: 06/04/2022 Start: 05-31-2022 End: 07-04-2022 Screening mammography bi 2-view breast inc cad TORRES SCREENING Radiology Routine Breast screening Malignant 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, estrogen receptor positive, unspecified site of breast (HCC) Expected: 05/31/2022 (Approximate), Expires: 07/04/2022 [facility] Work Phone: Comment on above: Expected: 05/31/2022 (Approximate), Expires: 07/04/2022 Start: 02-10-2022 ADVANCE DIRECTIVE DISCUSSION ADVANCE DIRECTIVE DISCUSSION [facility] Start: 02-10-2022 DEPRESSION ASSESSMENT DEPRESSION ASS ESSMENT [facility] Start: 02-10-2021 ADVANCE DIRECTIVE DISCUSSION ADVANCE DIRECTIVE DISCUSSION [facility] Start: 11-09-2020 Adult depression screening assessment DEPRESSION SCREENING [facility] Start: 11-09-2008 BONE DENSITY BONE DENSITY [facility] Start: 11-09-1993 SHINGRIX VACCINE (1 of 2) SHINGRIX VACCINE (1 of 2) [facility] Start: 11-09-1962 Urine microalbumin profile DTAP,TDAP,TD (1 - Tdap) [facility] Start: 11-09-1961 HEPATITIS C SCREENING HEPATITIS C SC ZACH [facility] Immunizations Immunization Date Immunization Notes Care Provider Fa cili 11-24-2020 COVID-19 mRNA, Comir leonie (Pfizer) MARIA ELENA Francois Work Phone: [facility] 11-17-2020 influenza (aIIV4) vaccine, age 65+ yr, quadrivalent, PF (FLUAD QUADRIVALENT) Garrett Beltrán MD Work Phone: [facility] 03-31-2020 COVID-19 mRNA, Comir leonie (Pfizer) MARIA ELENA Francois Work Phone: [facility] 03-10-2020 COVID-19 mRNA, Comir leonie (Pfizer) MARIA ELENA Francois Work Phone: [facility] 12-07-2019 influenza, high-dose , quadrivalent vaccine (FLUZONE HIGH DOSE QUADRIVALENT) Garrett Beltrán MD Work Phone: [facility] 12-07-2019 pneumococcal conjuga te vaccine, 13 valreyna Beltrán MD Work Phone: [facility] 11-24-2019 influenza, seasonal, injectable Garrett Beltrán MD Work Phone: [facility] 11-11-2019 pneumococcal conjuga te vaccine, 13 valent Garrett Beltrán MD Work Phone: [facility] 11-14-2018 influenza, high dose seasonal, preservative-free Garrett Beltrán MD Work Phone: [facility] 11-24-2017 influenza, high dose seasonal, preservative-free Garrett Beltrán MD Work Phone: [facility] 12-11-2016 influenza, high dose seasonal, preservative-free Garrett Beltrán MD Work Phone: [facility] 11-28-2015 influenza, injectabl e, quadrivalent, contains preservative Garrett Beltrán MD Work Phone: [facility] 07-11-2012 pneumococcal polysaccharide vaccine, 23 valent Garrett Beltrán MD Work Phone: [facility] 11-28-2008 influenza virus vacc ine, whole virus Garrett Beltrán MD Work Phone: [facility] Payers Date Payer Category Payer Self-pay [id number] 2023 Unknown [id number] 2022 Medicare [facility]IC[facility] [id number] 2022-Present [phone] [address] [place] [address] O [id number] 2021 Unknown ANTHEM BLUE CROS S AND BLUE SHIELD ANTHEM MEDIBLUE O [id number] 2021-Present [phone] [address] [place] [address] O [id number] 2020 Unknown [id number] 2017 Unknown [id number] 1945 Unknown [id number] 1945 Unknown [id number] 1945 Unknown [id number] 1945 Unknown [id number] 9 Unknown [id number] Social History Date Type Detail Facility Tobacco smoking status MEIS Unknown if ever smoked [facility] Work Phone: Start: 1945 Sex Assigned At Female [facility] Start: 05-15-2011 End: 03-19-2017 Tobacco smoking status NHIS Never smoked tobacco [facility] Start: 06-04-2021 Alcohol intake Current drinke r of alcohol (finding) [facility] Start: 1945 Sex Assigned At Not on file [facility] Start: 05-25-2021 End: 06-04-2021 Exposure to SARS-CoV-2 (event) Not sure [facility] Start: 05-15-2011 Tobacco use and exposure Smokeless tobacco non-user [facility] NEGATED: Highlighted row [facility] Clinical Notes 06-04-2021 to 06-10-2022 Patient InstructionsGarrett Beltrán MD - 06/10/2022 10:21 AM Ana Beltrán MD - 06/04/2021 10:47 AM Jeniffer Cervantes MA - 06/04/2021 10:20 AM EDT Note Date & Type Note Facility 06-10-2022 Note HNO ID: [id number] Author: Garrett Beltrán MD Service: ? Author Type: Physician Type: Progress Notes Filed: 06/16/2022 4:20 PM Note Text: NAME: Nadia Chin [facility] NO.: [id number] DATE OF SERVICE: June 10, 2022 (Leigh Ann) Some elements in this clinic note that are critical to medical decision making have been carefully reviewed and included from a prior clinic note dated: June 04, 2021 Referring Provider: Shaw Francois II CC: Right breast cancer ER/OR positive, HER-2/crescencio negative diagnosed May 2011. ASSESSMENT: 76 year old woman with early stage right breast cancer receiving no radiation and having completed 5 years of adjuvant hormone suppression in June 2016, with no evidence of recurrence. The fairly large thyroid nodule was evaluated by Dr. Hall in late 2019 and has required no intervention. PLAN: RTC PRN Order mammogram Left side in 1 year but CC: to Dr. Francois and Follow up with Dr. Francois for labs and exam in 1 year. HPI: Updated Visit, June 10, 2022: Doing well with no changes. No complaints. Exam completed today and noted below. She is 11 years out and will follow with us as needed. Updated Visit, June 04, 2021: Nadia is 75 yo and returns for follow up of Rt breast cancer. She has no complaints and continues to do well. Mammogram is benign. 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 She didn't have a Mammogram this past year and so we will reschedule to for 6 months and I will see her again. Her biggest complaint is bilateral knee pain especially in the mornings. Updated Visit, 2019: Nadia is 74 yo and returns in follow up for her history of right breast cancer which was diagnosed after an abnormal mammogram in 2011. The biopsy of a 1.1 cm right breast lesion at 12:00 was consistent with invasive ductal carcinoma with DCIS. Receptor status ER OR positive. HER-2/crescencio was negative. Coleman lymph nodes were negative. Mastectomy done 05/14/2011 also showed a 0.5 cm grade 2 ER/OR positive HER-2/crescencio negative invasive ductal carcinoma with 0 lymph nodes positive for disease. She completed 5 years of hormone therapy with anastrozole in June 2016. Her Oncotype DX score was 3. She received no radiation or chemotherapy. 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 Ultrasound of the neck demonstrates greater than 2-1/2 cm nodules that will need to be worked up. Dyspnea appears to be resolved. REVIEW OF SYSTEMS Per HPI and otherwise negative by full review of organ systems. ECOG PERFORMANCE STATUS: 0 PHYSICAL EXAMINATION: Vitals: BP 133/63 Pulse 68 Temp (Src) 97.4 (Temporal) Resp 16 Ht 5' 6.142 (1.68m) Wt 178 lb (80.7kg) SpO2 97% BMI 28.61 kg/(m2). Body surface area is 1.94 meters squared. Exam limited to gross visualization where appropriate. Gen.: This is an age-appropriate patient in no acute distress. Head: Appears atraumatic with no visible lesions. Eyes: Pupils equally round and reactive to light, extraocular muscles are intact. Neck: Supple. Mouth: Masked. Respiratory: Appears to be respiring comfortably. Neurologic: Nonfocal to gross visualization. Alert and oriented ?3. Psychiatric: No evidence of inappropriate anxiety or depression. Skin: Visible areas of skin without rash, lesions, wounds or petechiae. Lymph node exam: No appreciable lymphadenopathy in cervical supraclavicular or axillary lymph node chains. Chaperoned Breast exam (Itzel Lua) with right mastectomy scar and normal left female breast. ALLERGIES: ALLERGIES Allergen Reactions Sulfa (Sulfonamide * Rash, Swelling MEDICATIONS: omeprazole (PRILOSEC) 20 mg capsule Take 20 mg by mouth once daily. Takes every other day. levothyroxine (SYNTHROID) 125 mcg tablet Take 125 mcg by mouth once daily. losartan (COZAAR) 25 mg tablet Take 25 mg by mouth once daily. Cholecalciferol, Vitamin D3, 25 mcg (1,000 unit) cap Take by mouth once daily. sertraline (ZOLOFT) 50 mg tablet Take 1 tablet by mouth once daily. Bkrnmvvusjquj-Tvcrrjcn-Rtzcmt (CENTRUM SILVER) tab Take 1 tablet by mouth once daily. RANITIDINE HCL (ZANTAC ORAL) Take by mouth. (Patient not taking: Reported on 06/10/2022) LABORATORY VALUES: WBC (k/uL) Date Value 06/04/2021 6.65 RBC (m/uL) Date Value 06/04/2021 4.61 Hemoglobin (g/dL) Date Value 06/04/2021 14.0 Hematocrit (%) Date Value 06/04/2021 41.2 MCV (fL) Date Value 06/04/2021 89.4 MCH (pg) Date Value 06/04/2021 30.4 MCHC (g/dL) Date Value 06/04/2021 34.0 RDW-CV (%) Date Value 06/04/2021 13.2 Platelet Count (k/uL) Date Value 06/04/2021 173 MPV (fL) Date Value 04/ (more content not included)... [facility] 06-10-2022 Instructions Garrett Beltrán MD - 06/10/2022 11:07 AM EDT RTC PRN Order mammogram Left side in 1 year but CC: to Dr. Francois and Follow up with Dr. Francois for labs and exam in 1 year. documented in this encounter [facility] 06-10-2022 History of Presen t illness Narrative Images from the original note were not included. NAME: Nadia Chin CLINIC NO.: [id number] DATE OF SERVICE: June 10, 2022 (Leigh Ann) Some elements in this clinic note that are critical to medical decision making have been carefully reviewed and included from a prior clinic note dated: June 04, 2021 Referring Provider: Shaw Francois II CC: Right breast cancer ER/OR positive, HER-2/crescencio negative diagnosed May 2011. ASSESSMENT: 76 year old woman with early stage right breast cancer receiving no radiation and having completed 5 years of adjuvant hormone suppression in June 2016, with no evidence of recurrence. The fairly large thyroid nodule was evaluated by Dr. Hall in late 2019 and has required no intervention. PLAN: RTC PRN Order mammogram Left side in 1 year but CC: to Dr. Francois and Follow up with Dr. Francois for labs and exam in 1 year. HPI: Updated Visit, June 10, 2022: Doing well with no changes. No complaints. Exam completed today and noted below. She is 11 years out and will follow with us as needed. Updated Visit, June 04, 2021: Nadia is 75 yo and returns for follow up of Rt breast cancer. She has no complaints and continues to do well. Mammogram is benign. 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 She didn't have a Mammogram this past year and so we will reschedule to for 6 months and I will see her again. Her biggest complaint is bilateral knee pain especially in the mornings. Updated Visit, 2019: Nadia is 74 yo and returns in follow up for her history of right breast cancer which was diagnosed after an abnormal mammogram in 2011. The biopsy of a 1.1 cm right breast lesion at 12:00 was consistent with invasive ductal carcinoma with DCIS. Receptor status ER OR positive. HER-2/crescencio was negative. Coleman lymph nodes were negative. Mastectomy done 05/14/2011 also showed a 0.5 cm grade 2 ER/OR positive HER-2/crescencio negative invasive ductal carcinoma with 0 lymph nodes positive for disease. She completed 5 years of hormone therapy with anastrozole in June 2016. Her Oncotype DX score was 3. She received no radiation or chemotherapy. 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 Ultrasound of the neck demonstrates greater than 2-1/2 cm nodules that will need to be worked up. Dyspnea appears to be resolved. REVIEW OF SYSTEMS Per HPI and otherwise negative by full review of organ systems. ECOG PERFORMANCE STATUS: 0 PHYSICAL EXAMINATION: Vitals: BP 133/63 Pulse 68 Temp (Src) 97.4 (Temporal) Resp 16 Ht 5' 6.142 (1.68m) Wt 178 lb (80.7kg) SpO2 97% BMI 28.61 kg/(m^2). Body surface area is 1.94 meters squared. Exam limited to gross visualization where appropriate. Gen.: This is an age-appropriate patient in no acute distress. Head: Appears atraumatic with no visible lesions. Eyes: Pupils equally round and reactive to light, extraocular muscles are intact. Neck: Supple. Mouth: Masked. Respiratory: Appears to be respiring comfortably. Neurologic: Nonfocal to gross visualization. Alert and oriented 3. Psychiatric: No evidence of inappropriate anxiety or depression. Skin: Visible areas of skin without rash, lesions, wounds or petechiae. Lymph node exam: No appreciable lymphadenopathy in cervical supraclavicular or axillary lymph node chains. Chaperoned Breast exam (PerriSommer Stoney) with right mastectomy scar and normal left female breast. ALLERGIES: ALLERGIES Allergen Reactions Sulfa (Sulfonamide * Rash, Swelling MEDICATIONS: omeprazole (PRILOSEC) 20 mg capsule Take 20 mg by mouth once daily. Takes every other day. levothyroxine (SYNTHROID) 125 mcg tablet Take 125 mcg by mouth once daily. losartan (COZAAR) 25 mg tablet Take 25 mg by mouth once daily. Cholecalciferol, Vitamin D3, 25 mcg (1,000 unit) cap Take by mouth once daily. sertraline (ZOLOFT) 50 mg tablet Take 1 tablet by mouth once daily. Cvtzttrtdowyi-Jetjfcrn-Zfjtls (CENTRUM SILVER) tab Take 1 tablet by mouth once daily. RANITIDINE HCL (ZANTAC ORAL) Take by mouth. (Patient not taking: Reported on 06/10/2022) LABORATORY VALUES: WBC (k/uL) Date Value 06/04/2021 6.65 RBC (m/uL) Date Value 06/04/2021 4.61 Hemoglobin (g/dL) Date Value 06/04/2021 14.0 Hematocrit (%) Date Value 06/04/2021 41.2 MCV (fL) Date Value 06/04/2021 89.4 MCH (pg) Date Value 06/04/2021 30.4 MCHC (g/dL) Date Value 06/04/2021 34.0 RDW-CV (%) Date Value 06/04/2021 13.2 Platelet Count (k/uL) Date Value 06/04/2021 173 MPV (fL) Date Value 06/04/2021 8.8 (L) Glucose (mg/dL) Date Value 06/04/2021 92 BUN (mg/dL) Date Value 06/04/2021 16 Creatinine (mg/dL) Date Value 06/04/2021 0.85 Sodium (mmol/L) Date Value 06/04/2021 145 (H) Potassium (mmol/L) Date Value 06/04/2021 3.8 Chloride (mmol/L) Date Value 06/04/2021 108 (H) CO2 (mmol/L) Date Value 06/04/2021 27 Protein, Total (g/dL) Date Value 06/04/2021 6.4 Albumin (g/dL) Date Value 06/04/2021 4.2 Calcium, Total (mg/dL) Date Value 06/04/2021 9.3 Alkaline Phosphatase (U/L) Date Value 06/04/2021 64 Bilirubin, Total (mg/dL) Date Value 06/04/2021 0.6 AST (U/L) Date Value 06/04/2021 15 ALT (U/L) Date Value 06/04/2021 12 DIAGNOSIS: (Z85.3) History of breast cancer (primary encounter diagnosis) (Z12.39) Breast screening Plan: CBC + DIFF, COMP METABOLIC PANEL, TORRES SCREENING (C50.911, Z17.0) Malignant 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, estrogen receptor positive, unspecified site of breast (HCC) PAST MEDICAL HISTORY Diagnosis Date Breast cancer, right breast (HCC) 04/2011 T1N0Mx - stage 1, ER+OR+HER2- HTN (hypertension) PAST SURGICAL HISTORY Procedure Laterality Date MASTECTOMY, SIMPLE, COMPLETE 05/14/2011 Right simple mastectomy, right sentinel lymph node mapping and biopsy. STEREOTACTIC CORE BIOPSY 04/02/2011 right breast Social History Tobacco Use Smoking status: Never Smokeless tobacco: Never Substance Use Topics Alcohol use: Yes Comment: once every 3 months a glass FAMILY HISTORY Problem Relation Age of Onset Breast Cancer Sister 59 Breast Cancer Maternal Aunt diagnosed in her 40's Breast Cancer Other maternal cousin diagnosed late 30's early 40's other (lung cancer [Other]) Brother with metestatic disease other (other cancers [Other]) Unknown no known family h/o: ovarian,uterine,colon,pancreati c,thyroid,brain,melenoma,leukem ia,sarcomas Prostate Cancer Maternal Grandfather I spent a total of 30 minutes on the date of the service which included preparing to see the patient, [id number] patient care, completing clinical documentation, performing a medically appropriate examination and ordering medications, tests, or procedures. Garrett Beltrán MD, CPE [place], [place] CC: Shaw Francois II, MD [address] [place] [address] documented in this encounter [facility] 06-04-2021 History of Presen t illness Narrative Images from the original note were not included. NAME: Nadia Chin CLINIC NO.: [id number] DATE OF SERVICE: June 04, 2021 Some elements in this clinic note that are critical to medical decision making have been carefully reviewed and included from a prior clinic note dated: December 04, 2020 Referring Provider: Shaw Francois II CC: Right breast cancer ER/OR positive, HER-2/crescencio negative diagnosed May 2011. ASSESSMENT: 75 year old woman with early stage right breast cancer receiving no radiation and having completed 5 years of adjuvant hormone suppression in June 2016, with no evidence of recurrence. The fairly large thyroid nodule was evaluated by Dr. Hall in late 2019 and has required no intervention. PLAN: 1. Left Mammogram in May 2022 next year 2. RTC in 12 months, labs same day with exam. HPI: Updated Visit, June 04, 2021: Nadia is 75 yo and returns for follow up of Rt breast cancer. She has no complaints and continues to do well. Mammogram is benign. 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 She didn't have a Mammogram this past year and so we will reschedule to for 6 months and I will see her again. Her biggest complaint is bilateral knee pain especially in the mornings. Updated Visit, 2019: Nadia is 74 yo and returns in follow up for her history of right breast cancer which was diagnosed after an abnormal mammogram in 2011. The biopsy of a 1.1 cm right breast lesion at 12:00 was consistent with invasive ductal carcinoma with DCIS. Receptor status ER OR positive. HER-2/crescencio was negative. Coleman lymph nodes were negative. Mastectomy done 05/14/2011 also showed a 0.5 cm grade 2 ER/OR positive HER-2/crescencio negative invasive ductal carcinoma with 0 lymph nodes positive for disease. She completed 5 years of hormone therapy with anastrozole in June 2016. Her Oncotype DX score was 3. She received no radiation or chemotherapy. 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 Ultrasound of the neck demonstrates greater than 2-1/2 cm nodules that will need to be worked up. Dyspnea appears to be resolved. REVIEW OF SYSTEMS Per HPI and otherwise negative by full review of organ systems. ECOG PERFORMANCE STATUS: 0 PHYSICAL EXAMINATION: Vitals: BP 128/53 Pulse 66 Temp (Src) 97.5 (Temporal) Resp 16 Ht 5' 6.142 (1.68m) Wt 183 lb (83.0kg) SpO2 95% BMI 29.41 kg/(m^2). Body surface area is 1.97 meters squared. General:This is an age-appropriate patient in no acute distress. Head: Atraumatic, symmetric with no lesions visible. Eyes: Pupils equally round and reactive to light, extraocular muscles intact. Neck: Supple Mouth: Mucous membranes are moist, no thrush is noted. Lungs: Clear to auscultation bilaterally with no wheezes crackles or rales. Right side slightly diminished at base but this is normal for her. Cardiovascular: Regular rate and rhythm with no murmurs or gallops. Peripheral pulses: Normal. Gastrointestinal: Soft, nontender, normoactive bowel sounds, with no appreciable hepatosplenomegaly. Musculoskeletal: No appreciable bony abnormalities or tenderness. Extremities: Lower extremities without edema. Neurologic: Nonfocal to gross visualization. Alert and oriented 3. Psychiatric: No evidence of inappropriate anxiety or depression. Skin: No overt rashes wounds or petechiae. Lymph node exam: No appreciable lymphadenopathy in cervical supraclavicular or axillary lymph node chains. Chaperoned Breast exam with right mastectomy scar and normal left female breast. ALLERGIES: ALLERGIES Allergen Reactions Sulfa (Sulfonamide * Rash, Swelling MEDICATIONS: omeprazole (PRILOSEC) 20 mg capsule Take 20 mg by mouth once daily. Takes every other day. levothyroxine (SYNTHROID) 125 mcg tablet Take 125 mcg by mouth once daily. losartan (COZAAR) 25 mg tablet Take 25 mg by mouth once daily. Cholecalciferol, Vitamin D3, (VITAMIN D) 1,000 unit cap Take by mouth once daily. sertraline (ZOLOFT) 50 mg ORAL tablet Take 1 tablet by mouth once daily. Mpkwppyuihmoh-Dthqwnkw-Zehffx (CENTRUM SILVER) ORAL Tab Take 1 tablet by mouth once daily. RANITIDINE HCL (ZANTAC ORAL) Take by mouth. LABORATORY VALUES: WBC (k/uL) Date Value 06/04/2021 6.65 RBC (m/uL) Date Value 06/04/2021 4.61 Hemoglobin (g/dL) Date Value 06/04/2021 14.0 Hematocrit (%) Date Value 06/04/2021 41.2 MCV (fL) Date Value 06/04/2021 89.4 MCH (pg) Date Value 06/04/2021 30.4 MCHC (g/dL) Date Value 06/04/2021 34.0 RDW-CV (%) Date Value 06/04/2021 13.2 Platelet Count (k/uL) Date Value 06/04/2021 173 MPV (fL) Date Value 06/04/2021 8.8 (L) Glucose (mg/dL) Date Value 06/04/2021 92 BUN (mg/dL) Date Value 06/04/2021 16 Creatinine (mg/dL) Date Value 06/04/2021 0.85 Sodium (mmol/L) Date Value 06/04/2021 145 (H) Potassium (mmol/L) Date Value 06/04/2021 3.8 Chloride (mmol/L) Date Value 06/04/2021 108 (H) CO2 (mmol/L) Date Value 06/04/2021 27 Protein, Total (g/dL) Date Value 06/04/2021 6.4 Albumin (g/dL) Date Value 06/04/2021 4.2 Calcium, Total (mg/dL) Date Value 06/04/2021 9.3 Alkaline Phosphatase (U/L) Date Value 06/04/2021 64 Bilirubin, Total (mg/dL) Date Value 06/04/2021 0.6 AST (U/L) Date Value 06/04/2021 15 ALT (U/L) Date Value 06/04/2021 12 DIAGNOSIS: (Z12.39) Breast screening (primary encounter diagnosis) Plan: TORRES SCREENING, CBC + DIFF, COMP METABOLIC PANEL (C50.911, Z17.0) Malignant 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, estrogen receptor positive, unspecified site of breast (HCC) Plan: TORRES SCREENING, CBC + DIFF, COMP METABOLIC PANEL (R06.89) Abnormal breath sounds (J98.6) Elevated hemidiaphragm PAST MEDICAL HISTORY Diagnosis Date Breast cancer, right breast (HCC) 04/2011 T1N0Mx - stage 1, ER+OR+HER2- HTN (hypertension) PAST SURGICAL HISTORY Procedure Laterality Date MASTECTOMY, SIMPLE, COMPLETE 05/14/2011 Right simple mastectomy, right sentinel lymph node mapping and biopsy. STEREOTACTIC CORE BIOPSY 04/02/2011 right breast Social History Tobacco Use Smoking status: Never Smoker Smokeless tobacco: Never Used Substance Use Topics Alcohol use: Yes Comment: once every 3 months a glass Drug use: Not on file FAMILY HISTORY Problem Relation Age of Onset Breast Cancer Sister 59 Breast Cancer Maternal Aunt diagnosed in her 40's Breast Cancer Other maternal cousin diagnosed late 30's early 40's other (lung cancer [Other]) Brother with metestatic disease other (other cancers [Other]) Unknown no known family h/o: ovarian,uterine,colon,pancreati c,thyroid,brain,melenoma,leukem ia,sarcomas Prostate Cancer Maternal Grandfather I spent a total of 30 minutes on the date of the service which included preparing to see the patient, rmnq-kr-zskt patient care, completing clinical documentation, performing a medically appropriate examination and ordering medications, tests, or procedures. Garrett Beltrán MD, [place], [place] CC: Shaw Francois II, MD [address] [address] [place] [address] documented in this encounter [facility] 06-04-2021 Nurse Note Patient would like a breast exam states it has been awhile since one was performed. Ethel Cervantes MA documented in this encounter [facility] Evaluation note No assessment inform [facility] Work Phone: Evaluation note Diagnosis Breast screening- Primary Breast screening, unspecified Malignant 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, estrogen receptor positive, unspecified site of breast (HCC) Abnormal breath sounds Abnormal chest sounds Elevated hemidiaphragm Disorders of diaphragm [facility] History of breast cancer- Primary Personal history of malignant neoplasm of breast Breast screening Breast screening, unspecified Malignant 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, estrogen receptor positive, unspecified site of breast (HCC) [facility] Diagnosis Onset Date Resolution Status Osteoarthritis of right knee [facility] Work Phone: [facility] (narrative)* Diagnostic Procedure Only (Routine) - Pending Review Specialty Diagnoses / Procedures Referred By Contac t Referred To Contact [facility] Diagnoses Breast screening Malignant 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, estrogen receptor positive, unspecified site of breast (HCC) Procedures TORRES SCREENING SCREENING MAMMOGRAPHY BI 2-VIEW BREAST INC Garrett Joyce MD [address] [place] [address] [place] [address] [facility] [address] [place] [address] Referral ID Status Reason Start Date Expiration Date Visits Requested Visits Authorized [id number] Pending Review Auto-Generat ed Referral 05/31/2022 07/04/2022 1 1 [facility] for referral (narrative)* Diagnostic Procedure Only (Routine) - Pending Review Specialty Diagnoses / Procedures Referred By Contac t Referred To Contact [facility] Diagnoses Breast screening Procedures TORRES SCREENING SCREENING MAMMOGRAPHY BI 2-VIEW BREAST INC Garrett Joyce MD [address] [place] [address] [facility] [address] [place] [address] Referral ID Status Reason Start Date Expiration Date Visits Requested Visits Authorized [id number] Pending Review Auto-Generat ed Referral 06/11/2023 07/10/2023 1 1 T [facility] Summary Purpose Family History Relationship Condition Age at Onset Recorded Date/T derrick sister Malignant neoplasm of breast Unknown brother Unknown father Unknown Not Specified Unknown Advance Directives Advance Directive Response Recorded Date/ Time Advance Directives No May 16 2:08pm Documents on File Type Date 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 Advance Directive(s) 06/03/2016 2:33 PM Chief Complaint and Reason for Visit Chief Complaint 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 Chief Complaint M25.552 - Pain in le ft hip M25.561 - Pain in right NEW RT KNEE AND LT HIP PAIN NX Reason for Visit Osteoarthritis of ri ght knee Additional Source Comments INFORMATION SOURCE (unrecogn ized section and content) DATE CREATED AUTHOR 07/31/2017 [facility] DATE CREATED AUTHOR AUTHOR'S ORGANIZ ATION 09/29/2019 [facility] DATE CREATED AUTHOR AUTHOR'S ORGANIZ ATION 11/15/2019 [facility] DATE CREATED AUTHOR AUTHOR'S ORGANIZ ATION 04/27/2021 [facility] dical Specialist DATE CREATED AUTHOR AUTHOR'S ORGANIZ ATION 06/04/2022 [facility] DATE CREATED AUTHOR AUTHOR'S ORGANIZ ATION 06/17/2022 [facility] DATE CREATED AUTHOR AUTHOR'S ORGANIZ ATION 04/24/2023 [facility] dical Specialists EPIC DATE CREATED AUTHOR AUTHOR'S ORGANIZ ATION 06/28/2023 [facility] ys[facility] Group Care Teams (unrecognized sec tion and content) Team Status: Active Member Role Status Dates Shaw Francois II MD Primary Care Provider Active Team Status: Inactive Member Role Status Dates Shaw Francois II MD Primary Care Provider Active Start: June 26, 2023 End: June 26, 2023 Jeevan Sanchez II, MD Attending Provider Active Start: June 26, 2023 End: June 26, 2023 Team Status: Inactive Member Role Status Dates Shaw Francois II MD Primary Care Provider Active Naya Weber DO Attending Provider Active Team Status: Active Member Role Status Dates Shaw Francois II MD Primary Care Provider Active Channel Program Manager Relationship Specialty Start Date End Date Shaw Francois II [address] [place] [address] PCP - General Internal Medicine 01/15/16 Channel Program Manager Relationship Specialty Start Date End Date Shaw Francois II [address] [place] [address] PCP - General Internal Medicine 01/15/16 Team Status: Inactive Member Role Status Dates Shaw Francois II MD Primary Care Provider Active Start: June 26, 2023 End: June 26, 2023 Jeevan Sanchez II, MD Attending Provider Active Start: June 26, 2023 End: June 26, 2023 Goals (unrecognized section and content) Goals may be documented in a n alternate sectionGoals may be documented in an alternate section Source Comments (unrecognize d section and content) In the event this informatio n is protected by the Federal Confidentiality of Alcohol and Drug Abuse Patient Records regulations: The Federal rules restrict any use of the information to criminally investigate or prosecute any alcohol or drug abuse patient.[facility] the event this information is protected by the Federal Confidentiality of Alcohol and Drug Abuse Patient Records regulations: The Federal rules restrict any use of the information to criminally investigate or prosecute any alcohol or drug abuse patient.[facility] Reason for Visit (unrecogniz ed section and content) Reason Comments Breast Cancer 6 month follow up Reason Comments Breast Cancer 1 year follow up FOR RECORDS PERTAINING TO PATIENTS WHO ARE OR HAVE BEEN ENROLLED IN A CHEMICAL DEPENDENCY/SUBSTANCEABUSE PROGRAM, SOME INFORMATION MAY BE OMITTED. This clinical summary was aggregated from multiple sources. Caution should be exercised in using it in the provision of clinical care. This summary normalizes information from multiple sources, and as a consequence, information in this document may materially change the coding, format and clinical context of patient data. In addition, data may be omitted in some cases. CLINICAL DECISIONS SHOULD BE BASED ON THE PRIMARY CLINICAL RECORDS. [facility]. provides no warranty or guarantee of the accuracy or completeness of information in this document.
== END 2023-07-09 14:27 | disposition home or self-care (01) ==
LOC: MAMMO 14:26
PROVIDERS: PCP Internal Medicine; Visit Provider Internal Medicine Hematology & Oncology
DX: Z12.31 Encounter for screening mammogram for malignant neoplasm of breast (principal); Z80.3 Family history of malignant neoplasm of breast
CPT/HCPCS: 77063; 77067

== ENCOUNTER 2023-12-25 15:25 | Inpatient (IN) | payer MEDICARE, SELFPAY ==
[2023-12-25 15:34] VITALS: BP 116/52; PULSE 71; TEMP 36.4; O2SAT 95; BMI 27.3
--- NOTE | 2023-12-25 15:45 | XR_ITS ---
The [address] [address] Patient Name: ASHLYN CHIN MRN: [id number] date: 1945 Sex: F Assigned Patient Location: ED.MAIN Current Patient Location: ED.MAIN Accession/Order Number: [id number] Exam Date: 12/25/2023 16:50 Report Date: 12/25/2023 18:38 At the request of: CHOLO JOHNSON Procedure: XR hip LT 2V w/ pelvis EXAM: XR hip LT 2V w/ pelvis HISTORY: The patient is an 78-year-old female, fall COMPARISON: None. FINDINGS: There is a displaced and angulated subcapital fracture of the left femoral neck. No displaced fractures are seen within the proximal right femur or elsewhere throughout the bony pelvis. There is evidence of narrowing of both hip joints, worse on the left. The sacroiliac joints are maintained. The pubic symphysis is maintained. XR/XR hip LT 2V w/ pelvis IMPRESSION: Left femoral neck fracture. Electronically authenticated by: SURJIT MAZARIEGOS Date: 12/25/2023 18:38
--- NOTE | 2023-12-25 15:47 | XR_ITS ---
The [address] [address] Patient Name: ASHLYN CHIN MRN: [id number] date: 1945 Sex: F Assigned Patient Location: ED.MAIN Current Patient Location: [place] Accession/Order Number: [id number] Exam Date: 12/25/2023 16:50 Report Date: 12/25/2023 19:10 At the request of: CHOLO JOHNSON Procedure: XR lumbar spine 2-3V EXAM: XR lumbar spine 2-3V HISTORY: The patient is an 78-year-old female, pain COMPARISON: 12/28/2015. 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 There is no radiographic evidence of fracture or loss of vertebral body height throughout the lumbar spine. There is no malalignment. The sacroiliac joints are maintained. There is mild disc space narrowing throughout the lumbar spine, and this is unchanged since the prior radiographs of 12/28/2015. There are no new findings. XR/XR lumbar spine 2-3V IMPRESSION: No change. Electronically authenticated by: SURJIT MAZARIEGOS Date: 12/25/2023 19:10
--- NOTE | 2023-12-25 15:47 | ED.GENADUL1 ---
HPI HPI - General Adult General Chief complaint: Fall Stated complaint: HIP PAIN Time Seen by Provider: 12/25/23 15:27 Source: patient and other Source information: ems Mode of arrival: ambulance Limitations: other Limitations comment: enterprise History of Present Illness HPI narrative: Patient presenting to the emergency department for evaluation of left hip pain status post fall. Patient states that she was up on a stepstool, stepped down with her left leg, misstepped coming down off the first round of the stepstool, she had a knee replacement 4 months ago so she tried to protect that knee on the right side, she ended up falling awkwardly landing on the left hip. Did not hit her head, had no loss of consciousness. Did not fall or land on the arm, ribs. Has no chest pain, shortness of breath, headache, neck pain. States she was unable to walk since that time.no thinners Related Data Allergies Allergy/AdvReac Type Severity Reaction Status Date / Time Sulfa (Sulfonamide Allergy Intermediate Hives Verified 12/25/23 15:41 Antibiotics) Opioid HPI Opioid Management Most Recent Opioid Data: Last Pain Scale 10 12/25/23 15:50 12/25/23 Last MAR Pain Assessment 12/25/23 15:50 Review of Systems ROS Narrative Negative unless otherwise stated in the HPI Exam Narrative Exam Narrative: General: NAD, AAOx3, no distress Eyes: PERRL, EOMI, no hyphema HEENT: NCAT, no tenderness or bruising Neck: Supple, no numbness elicited Respiratory: respiratory effort normal, speaks in full sentences, no tripod position, no accessory muscle use. Lungs clear to auscultation without rhonchi, wheezes, rales Cardiac: Regular rate and rhythm, no edema, regular s1/s2, no m/g/r Ext: Left hip tenderness to palpation, tenderness to the posterior iliac crest, held is internally rotated, pain limitation with motion, cannot actively flex or extend or internally externally rotate the left hip Constitutional Vital Signs, click to edit/add: Last Vital Signs Temp 97.6 F 12/25/23 15:34 Pulse 71 12/25/23 15:34 Resp 16 12/25/23 15:34 BP 116/52 12/25/23 15:34 Pulse Ox 95 12/25/23 15:34 O2 Del Method Room Air 12/25/23 15:34 Course Vital Signs Vital signs: Vital Signs Temperature 97.6 F 12/25/23 15:34 Pulse Rate 71 12/25/23 15:34 Respiratory Rate 16 12/25/23 15:34 Blood Pressure 116/52 12/25/23 15:34 Pulse Oximetry 95 12/25/23 15:34 Oxygen Delivery Method Room Air 12/25/23 15:34 Temperature 97.6 F 12/25/23 15:34 Pulse Rate 71 12/25/23 15:34 Respiratory Rate 16 12/25/23 15:34 Blood Pressure 116/52 12/25/23 15:34 Pulse Oximetry 95 12/25/23 15:34 Oxygen Delivery Method Room Air 12/25/23 15:34 Medical Decision Making MDM Narrative Medical decision making narrative: MDM Patient with history as above presented with left hip pain. History obtained from patient. Patient was nontoxic, stable. Ambulatory. Exam as above. Labs reviewed. Independently reviewed imaging. Reviewed external records. Differential diagnosis considered. Overall presentation is consistent with 1550 x-ray and pain medication ordered [address] Shore, he can be here tomorrow at 3pm , please admit 1740 discussed with hospitalist, Dr. Lambert. Reports was given, sign out was completed at this time. Patient is excepted in stable condition at this time Discharge Plan Discharge Chief Complaint: Fall Patient Disposition: Admitted As Inpatient Time of Disposition Decision: 17:43
[2023-12-25] MEDS: MORPHINE SULFATE 4 MG/ML VIAL IV ×2 (15:50→16:49)
--- NOTE | 2023-12-25 17:22 | ECG_ITS ---
The [facility] Test Date: 2023-12-25 Pat Name: ASHLYN CHIN Department: Room: - Gender: Female Insurance Application Investigator: : 1945 Requested By: DOMINIC HERBERT Order Number: [id number] Reading MD: HARRIETT BEJARANO Measurements Intervals Marine Rate: 70 P: 36 FL: 174 QRS: -35 QRSD: 138 T: 62 QT: 434 QTc: 455 Interpretive Statements 1100 Sinus rhythm 2450 Right bundle branch block 7200 Abnormal left axis deviation 9150 abnormal ECG Compared to ECG 04/12/2020 09:40:20 Left-axis deviation now present Electronically Signed On 12-26-2023 5:03:08 EST by HARRIETT BEJARANO
--- NOTE | 2023-12-25 17:37 | PC.NURSE ---
Pt SpO2 dipping down to 88% on RA. Placed on 2L NC, SpO2 now 97%.
[2023-12-25 17:49] LABS: Basophils Percent Auto 0.2 % (0.2-2.0); Eosinophils Percent Auto 0.1 % (0.9-7.0); Hematocrit 38.5 % (36.0-48.0); Hemoglobin 13.6 g/dL (12.0-16.0); Immature Granulocytes Abs Auto 0.09 10^3/uL (0.00-0.03); Immature Granulocytes Pct Auto 0.6 % (0.0-0.5); Lymphocytes Absolute Auto 1.3 10^3/uL (1.2-3.8); Lymphocytes Percent Auto 9.5 % (20.5-60.0); Mean Corpuscular HGB Conc 35.3 g/dL (29.9-35.2); Mean Corpuscular Hemoglobin 31.3 pg (26.7-34.0); Mean Corpuscular Volume 88.7 fL (81.0-99.0); Mean Platelet Volume 8.9 fL (9.5-13.5); Monocytes Absolute Auto 0.6 10^3/uL (0.3-0.8); Monocytes Percent Auto 4.1 % (1.7-12.0); Neutrophils Percent Auto 85.5 % (43.0-75.0); Platelet Count 201 10^3/uL (150-450); Red Blood Count 4.34 10^6/uL (4.20-5.40); Red Cell Distribution Width 12.3 % (11.0-15.0); White Blood Count 14.1 10^3/uL (4.0-11.0)
[2023-12-25 17:54] LABS: Anion Gap 14.9; BUN Creatinine Ratio 20.2; Calcium 9.7 mg/dL (8.5-10.1); Carbon Dioxide 26.8 mmol/L (21.0-32.0); Chloride 106 mmol/L (98-107); Estimated GFR (African America >60 (>=60 mL/min/1.73m^2); Estimated GFR (Non-African Ame 57 (>=60 mL/min/1.73m^2); Glucose 134 mg/dL (74-106); Potassium 3.7 mmol/L (3.5-5.1); Sodium 144 mmol/L (136-145)
[2023-12-25 18:00] LABS: INR 1.07; Prothrombin Time 11.3 sec (9.0-11.6)
--- OUTSIDE RECORDS SUMMARY | 2023-12-25 18:56 | XMS_ITS | CCD ---
Author Organization [facility] Care Team Providers Care Stunt Man Name Role Phone SHAW FRANCOIS Unavailable Unavailable FRANCOIS, SHAW Unavailable Unavailable FRANCOIS, SHAW Unavailable Unavailable FRANCOIS, SHAW Unavailable Unavailable Francois, II Shaw Primary Care Provider DO Naya Weber Attending Provider Shaw Francois II Primary Care Provider ABHYANKAR, GARRETT Admitting Unavailable LEIGH ANN, GARRETT Attending Unavailable DR SHAW FRANCOIS Primary Care Unavailable OAKFIELD, DR NAYA Lewis Consulting Unavailable ABHYANKAR, GARRETT Consulting Unavailable Shaw Francois II Primary Care Provider ABHYANKAR, GARRETT Attending Unavailable ABCHARITYANKAR, GARRETT Referring Unavailable SHAW FRANCOIS II Primary Care Unavailable ABHYANKAR, GARRETT Referring Unavailable SHAW FRANCOIS II Primary Care Unavailable Alessandro II Shaw Primary Care Provider MD Jeevan Sanchez II Attending Provider [phone] DEBI Chaparro Other Provider Unavailable DEBI Andersno Other Provider Unavailable DEBI Orona Other Provider Unavailable DEBI Farfan Other Provider Unavailable DEBI Velasco Other Provider Unavailable MD Daryn Rowland Other Provider DO Amy Zacarias Other Provider MD Rufino Valdovinos Other Provider DO Trevor Bloom Other Provider MD Edmund Palencia Other Provider [phone] MD Moriah Torre Other Provider [phone] MD Donovan Jordan Other Provider Unavailable DAWN Salmeron Other Provider MD Gm Manning Other Provider MD Fabricio Gagnon Other Provider MD Makenna Terrazas Other Provider MD Gunnar Barone Other Provider DO Toy Prince Other Provider MD Jeremi Gaytan Other Provider MD Prakash Bañuelos Other Provider TILA Lyons-C Yasmin Araya Other Provider DAWN Granger Other Provider Unavailable MD Saulo Vee Other Provider MD Mian Fuller Other Provider MD Ashok Lozada Other Provider MD Anastasiia Cortez Other Provider Unavailable MD Maik Quinteros Other Provider DO Lesli Garcia Other Provider DO Ferdinand Osorio Other Provider DAWN Paige Other Provider DO Klaus Hennessy Other Provider MD Jamie Sexton Other Provider DAWN Boyd Other Provider DAWN Benjamin Other Provider MD Polina Price Other Provider MD Shaw Coronado Other Provider DO Yovani Quintana Other Provider [phone] DO Mayda Disla Other Provider MD Bonilla Lozada P Other Provider MD Vargas Ambriz Other Provider SwapnaSERA lewisN Allison Other Provider MD Merrick Cheng Other Provider MD Neeraj Pham Other Provider DEBI Thornton Other Provider Unavailable MD Vinnie Yin Other Provider MARIA ELENA Francois Primary Care Provider MD Jeevan Sanchez II Attending Provider [phone] Alessandro II Shaw Primary Care Provider MD Jeevan Sanchez II Attending Provider Shaw Francois MD Primary Care Provider Shaw Francois MD Unavailable MARIA ELENA Francois Primary Care Provider MD Jeevan Sanchez II Attending Provider Daniel ARREDONDO, Jeevan Rayo Attending Unavailabl e Alessandro Shaw Primary Care Unavailable Attala II, Jeevan M Admitting [facility]abl [facility] Attala II, Jeevan M Attending Unavailabl e Attala II, Jeevan M Admitting [facility]availabl e [facility] Unavailable Attala II, Jeevan Rayo Attending Unavailabl e Daniel II, Jeevan M Admitting Unavailabl e Attala II, Jeevan M Admitting Unavailabl e Attala II, Jeevan M Attending Unavailabl e Alessandro Shaw Primary Care Unavailable [facility] Primary Care Unavailable Attala II, Jeevan M Attending Unavailabl e Daniel II, Jeevan M Admitting Unavailabl e Attala II, Jeevan M Admitting Unavailabl e Daniel II, Jeevan M Attending Unavailabl e Alessandro Shaw Primary Care Unavailable [facility] Primary Care Unavailable Attala II, Jeevan Rayo Attending Unavailabl e Attala II, Jeevan M Admitting Unavailabl e Nancy Chaparro Consulting Unavailable Samantha Anderson Consulting Unavailable Naila Orona Consulting Unavailable AdolphAda sawant Consulting Unavailable Huyen Velasco Consulting Unavailable Daryn Rowland Consulting Unavailable Amy Zacarias Consulting Unavailable Rufino Valdovinos Consulting Unavailable Trevor Bloom Consulting UnavailEdmund Gregory Consulting Unavailable Moriah Torre Consulting Unavailable Donovan Jordan Consulting Unavailable Halle Salmeron Consulting Unavailabl Gm Still Consulting Unavailable Fabricio Gagnon Consulting Unavailable Makenna Terrazas Consulting Unavailable Gunnar Barone Consulting Unavailable Toy Prince Consulting Unavailable Jeremi Gaytan Consulting Unavailable Prakash Bañuelos Consulting Unavailable Yasmin Lyons Consulting Unavailable Angelica Granger Consulting Unavailable Saulo Vee Consulting Unavailab Mian Harp Consulting Unavailable Ashok Lozada Consulting Unavailable Anastasiia Cortez Consulting Unavailable Maik Quinteros Consulting Unavailable Lesli Garcia Consulting Unavailable Ferdinand Osorio Consulting Unavailable Carlota Paige Consulting Unavailable Klaus Hennessy Consulting Unavailable Jamie Sexton Consulting Unavailable Kim Boyd Consulting Unavailable Sera Benjamin Consulting Unavailable Polina Price Consulting Unavailable Shaw Coronado Consulting Unavailable Yovani Quintana Consulting Unavailable Mayda Disla Consulting Unavailable Bonilla Lozada Consulting Unavailable Vargas Ambriz Consulting Unava ilable Allison Tejada Consulting Unavailable Merrick Cheng Consulting Unavailable Neeraj Pham Consulting Unavailable Sofía Thornton Consulting Unavailable Vinnie Yin Consulting Unavailable Jeevan Sanchez II Admitting UnavailJeevan Bryan II Attending UnavailShaw Avila Primary Care Unavailable JACINTO DUTTA Attending Unavailable JR. ADDISON GEORGE C Attending Unavaila ayde ADDISON JR., GEORGE C Referring Unavaila SHAW Rodriguez Attending Unavailable SHAW FRANCOIS Attending Unavailable JACKIE PERSAUD Attending Unavailable FRANNIE DÍAZ Referring Unavailable ANTONETTE GUNN Attending Unavailable FRANNIE DÍAZ Referring Unavailable JACKIE PERSAUD Attending Unavailable FRANNIE DÍAZ Referring Unavailable ANTONETTE GUNN Attending Unavailable MARQUIS FRANNIE Referring Unavailable PILO OSORIO Attending Unavailable MARQUIS FRANNIE Referring Unavailable ANTONETTE GUNN Attending Unavailable FRANNIE DÍAZ Referring Unavailable ANTONETTE GUNN Attending Unavailable FRANNIE DÍAZ Referring Unavailable KELBLEY, ANTONETTE Attending Unavailable MARQUIS, FRANNIE Referring Unavailable KELBLEY, ANTONETTE Attending Unavailable MARQUIS, FRANNIE Referring Unavailable KELBLEY, ANTONETTE Attending Unavailable MARQUIS, FRANNIE Referring Unavailable KELBLEY, ANTONETTE Attending Unavailable MARQUIS, FRANNIE Referring Unavailable KELBLEY, ANTONETTE Attending Unavailable MARQUIS, FRANNIE Referring Unavailable HUNG JACKIE T Attending Unavailable MARQUIS, FRANNIE Referring Unavailable KELBLEY, ANTONETTE Attending Unavailable MARQUIS, FRANNIE Referring Unavailable KELBLEY, ANTONETTE Attending Unavailable MARQUIS, FRANNIE Referring Unavailable KELBLEY, ANTONETTE Attending Unavailable MARQUIS, FRANNIE Referring Unavailable KELBLEY, ANTONETTE Attending Unavailable MARQUIS, FRANNIE Referring Unavailable Allergies Allergy Classification Reported Allergen(s) Allergy Type Date of Onset Reaction(s) Facility (10 sources) Sulfonamides (Antibiotic); Translations: [SULFA (SULFONAMIDE ANTIBIOTICS)] Drug Allergy 2 Rash, Swelling, Unknown [facility] Work Phone: (1 source) Sulfonamides (Antibiotic) Drug allergy (disorder) 6 [facility] Repository (7 sources) Nitrofurantoin Drug Allergy 1 Unknown [facility] Healthcare (1 source) Sulfonamides (Antibiotic) Drug allergy (disorder) 4 [facility] Repository Medications Current Medications Medication Drug Class(es) Dates Sig (Normalized) Sig (Original) acetaminophen 500 mg oral tablet (20 sources) Start: 08-21-2023 take 1000 mg by mouth every eight hours Acetaminophen Active 1000 MG PO Q8H 180 30 August 21, 2023 12:00am do not reconcile until DOS: 09/01/2023 med to bed Start: 08-18-2023 take 2 tablets by mo uth every eight hours Acetaminophen (Tylenol Extra Strength) 500 mg tablet Active 1000 MG PO Every 8 hours August 18, 2023 12:00am aspirin 81 mg delayed release oral tablet (10 sources) Platelet Aggregation Inhibitor, Nonsteroidal Anti-inflammatory Drug Start: 08-21-2023 take 81 mg by mouth twice daily Aspirin Active 81 MG PO Twice daily 70 35 August 21, 2023 12:00am do not reconcile until DOS: 09/01/2023 med to bed cefadroxil 500 mg oral capsule (10 sources) Cephalosporin Antibacterial Start: 08-21-2023 take 500 mg by mouth every twelve hours Cefadroxil Active 500 MG PO Q12H 14 August 21, 2023 12:00am do not reconcile until DOS: 09/01/2023 med to bed Cholecalciferol (20 sources) Vitamin D Start: 05-22-2021 take 1 capsule by mouth once daily Cholecalciferol (Vitamin D3) (Vitamin D3) 10 mcg (400 unit) Capsule Active 10 MCG PO Daily May 22, 2021 12:00am Start: 05-22-2021 take 1 capsule by mo uth once daily Cholecalciferol (Vitamin D3) (Vitamin D3) 10 mcg (400 unit) Capsule Active 10 MCG PO Daily May 22, 2021 12:00am cholecalciferol (Vitamin D-3) 50 MCG (2000 UT) tablet 1 (one) time each day at the same time. Active Cholecalciferol, Vitamin D3, 25 mcg (1,000 unit) cap Take by mouth once daily. 0 Active Comment on above: Take by mouth once d aily. levothyroxine sodium 0.125 mg oral tablet (20 sources) l-Thyroxine Start: 03-13-19 take 1 tablet by mouth once daily Levothyroxine (Euthyrox) 125 mcg tablet Active 125 MCG PO Daily May 22, 2021 12:00am Comment on above: Take 125 mcg by mout h once daily. losartan potassium 25 mg oral tablet (20 sources) Angiotensin 2 Receptor Teri Start: 02-09-20 15 take 25 mg by mouth once daily in the morning Losartan Active 25 MG PO Every morning May 22, 2021 12:00am Comment on above: Take 25 mg by mouth once daily. Multiple Vitamins-Minerals (CENTRUM SILVER ULTRA WOMENS PO) (7 sources) Multiple Vitamins-Minerals (CENTRUM SILVER ULTRA WOMENS PO) Centrum Silver Active Multivitamin-Minerals -Lutein (14 sources) Start: 05-23-19 22 take 1 tablet by mouth once daily Multivitamin-Minerals -Lutein Active 1 TAB PO Daily May 22, 2021 12:00am naproxen sodium 220 mg oral capsule (11 sources) Nonsteroidal Anti-inflammatory Drug Start: 08-18-19 24 take 1 capsule by mouth twice daily Naproxen Sodium (Aleve) 220 mg capsule Active 220 MG PO Twice daily August 18, 2023 12:00am omeprazole 40 mg delayed release oral capsule (16 sources) Proton Pump Inhibitor Start: 06-26-19 take 1 capsule by mouth once daily in the morning Omeprazole Active 1 CAP PO Every morning June 26, 2023 12:00am [employer] CAPSULE Orally bid; Note: Source Status: Start; Refills: 11; Qty: 60 Capsule; Provider: Gus Severino Start: 06-26-2023 take 1 capsule by mo ut twice daily Omeprazole Active 1 CAP PO Twice daily June 26, 2023 12:00am [employer] CAPSULE Orally bid; Note: Source Status: Start; Refills: 11; Qty: 60 Capsule; Provider: Gus Severino omeprazole (PRIL OSEC) 20 mg capsule Take 20 mg by mouth once daily. Takes every other day. 0 Active Comment on above: Take 20 mg by mouth once daily. Takes every other day. predniSONE 10 mg oral tablet (10 sources) Start: 08-21-2023 take 10 mg by mouth once daily Prednisone Active 10 MG PO daily 10 August 21, 2023 12:00am do not reconcile until DOS: 09/01/2023 med to bed sertraline 100 mg oral tablet (20 sources) Serotonin Reuptake Inhibitor Start: 04-11-2023 take 0.5 tablet by mouth once daily sertraline (Zoloft) 100 MG tablet Indications: Depressive disorder (CMS/HCC) Take 0.5 tablets (50 mg) by mouth Daily 45 tablet 3 04/11/2023 Active Start: 05-22-2021 take 50 mg by mouth once daily in the morning Sertraline Active 50 MG PO Every morning May 22, 2021 12:00am Start: 04-17-2011 take 1 tablet by maria de jesus th once daily sertraline (ZOLOFT) 50 mg tablet Take 1 tablet by mouth once daily. 0 04/17/2011 Active Comment on above: Take 1 tablet by maria de jesus th once daily. Completed/Discontinued Medications Medication Drug Class(es) Dates Sig (Normalized) Sig (Original) azithromycin 250 mg oral tablet (13 sources) Macrolide Antimicrobial Start: 07-17-2023 End: 08-18-2023 Azithromycin Discontinued 500 MG PO July 17, 2023 12:00am August 18, 2023 10:18am docusate sodium 50 mg / sennosides, custodial 8.6 mg oral tablet (10 sources) Start: 08-21-2023 End: 10-15-2023 take 2 tablets by mouth once daily Sennosides-Docusat e Sodium (Senokot-S) 8.6-50 mg tablet Discontinued 2 TAB PO daily 60 August 21, 2023 12:00am October 15, 2023 2:43pm do not reconcile until DOS: 09/01/2023 med to bed Multivitamins-Application Support Analyst als-Lutein (CENTRUM SILVER) ORAL Tab (1 source) Start: 04-17-2011 take 1 tablet by mouth once daily Multivitamins-Mine rals-Lutein (CENTRUM SILVER) ORAL Tab Take 1 tablet by mouth once daily. 90 tablet 4 04/17/2011 Active Comment on above: Take 1 tablet by maria de jesus th once daily. Multivitamins-[place] als-Lutein (CENTRUM SILVER) tab (1 source) Start: 04-17-2011 take 1 tablet by mouth once daily Multivitamins-Mine rals-Lutein (CENTRUM SILVER) tab Take 1 tablet by mouth once daily. 90 tablet 4 04/17/2011 Active Comment on above: Take 1 tablet by maria de jesus th once daily. ondansetron 4 mg oral tablet (10 sources) Serotonin-3 Receptor Antagonist Start: 08-21-2023 End: 10-15-2023 take 4 mg by mouth every eight hours Ondansetron Hcl Discontinued 4 MG PO Q8H August 21, 2023 12:00am October 15, 2023 2:43pm do not reconcile until DOS: 09/01/2023 med to bed oxyCODONE hydrochloride 5 mg oral tablet (10 sources) Opioid Agonist Start: 08-21-2023 End: 09-18-2023 take 5 mg by mouth every four hours Oxycodone Discontinued 5 MG PO Q4H 42 August 21, 2023 September 18, 2023 2:21pm do not reconcile until DOS: 09/01/2023 med to bed polyethylene glycol 3350 08653 mg powder for oral solution (10 sources) Osmotic Laxative Start: 08-21-2023 End: 10-15-2023 Polyethylene Glycol 3350 (Miralax) 17 gram/dose powder Discontinued 17 GM PO daily 7 August 21, 2023 12:00am October 15, 2023 2:43pm 1 packed mixed with 8 ounces of fluid. raNITIdine (2 sources) Histamine-2 Receptor Antagonist RANITIDINE HCL (ZANTAC ORAL) Take by mouth. 0 Active Comment on above: Take by mouth. traMADol hydrochloride 50 mg oral tablet (16 sources) Opioid Agonist Start: 08-21-2023 End: 10-15-2023 take 50 mg by mouth every six hours Tramadol Discontinued 50 MG PO Q6H 40 September 18, 2023 2:54pm October 15, 2023 2:43pm Dispense: 40 (Forty) Diagnosis: M17.11 Problems Active Problems Problem Classification Problem Date Documented Date Episodic/Chronic Acquired foot deformities (14 sources) Acquired hammer toe of right foot; Translations: [Other hammer toe(s) (acquired), right foot] Onset: 01-19-2016 09-05-2022 Chronic Administrative/socia l admission (15 sources) Other reduced mobility; Translations: [Impaired mobility and activities of daily living] Onset: 09-01-2023 09-02-2023 Episodic Cancer of breast (11 sources) Malignant neoplasm of female breast; Translations: [Malignant neoplasm of unspecified site of right female breast] Onset: 04-19-2011 Chronic Complications of surgical procedures or medical care (7 sources) Postoperative hypothyroidism; Translations: [Postprocedural hypothyroidism] Onset: 07-26-2020 09-05-2022 Chronic Conduction disorders (7 sources) Right bundle branch block; Translations: [Unspecified right bundle-branch block] Onset: 02-09-2016 09-05-2022 Chronic Disorders of lipid metabolism (7 sources) Primary hypercholesterolemia; Translations: [Pure hypercholesterolemia, unspecified] Onset: 11-30-2018 09-05-2022 Chronic Esophageal disorders (20 sources) Gastroesophageal reflux disease; Translations: [Gastro-esophageal reflux disease without esophagitis] Onset: 02-09-2016 01-22-2023 Chronic Essential hypertension (20 sources) Hypertensive disorder; Translations: [Essential (primary) hypertension] Onset: 12-08-2014 09-01-2023 Chronic Genitourinary congenital anomalies (7 sources) Multiple congenital cysts of kidney; Translations: [Cystic kidney disease, unspecified] Onset: 04-17-2015 09-05-2022 Chronic Genitourinary symptoms and ill-defined conditions (7 sources) Urinary incontinence; Translations: [Unspecified urinary incontinence] Onset: 11-02-2018 09-05-2022 Chronic Menopausal disorders (7 sources) Decreased estrogen level; Translations: [Other primary ovarian failure] Onset: 08-23-2020 09-05-2022 Chronic Mood disorders (7 sources) Depressive disorder; Translations: [Depressive disorder] Onset: 12-08-2014 09-05-2022 Chronic Occlusion or stenosis of precerebral arteries (7 sources) Carotid artery stenosis; Translations: [Occlusion and stenosis of unspecified carotid artery] Onset: 04-14-2015 09-05-2022 Chronic Osteoarthritis (20 sources) Osteoarthritis of right knee joint; Translations: [Unilateral primary osteoarthritis, right knee] Onset: 12-08-2020 06-26-2023 Chronic Osteoporosis (14 sources) Osteoporosis; Translations: [Age-related osteoporosis without current pathological fracture] Onset: 07-17-2023 07-17-2023 Chronic Other aftercare (10 sources) Patient encounter status; Translations: [Aftercare following joint replacement surgery] 09-17-2023 Chronic Other aftercare (13 sources) Aftercare following joint replacement surgery; Translations: [Aftercare following joint replacement] Onset: 10-15-2023 09-18-2023 Chronic Other aftercare (13 sources) Long-term current use of drug therapy; Translations: [Other superintendent container terminal (current) drug therapy] 07-17-2023 Episodic Other connective tissue disease (7 sources) History of total knee arthroplasty; Translations: [Presence of right artificial knee joint] 09-02-2023 Chronic Other connective tissue disease (18 sources) Presence of right artificial knee joint; Translations: [Knee joint replacement] Onset: 10-15-2023 09-02-2023 Chronic Other lower respiratory disease (1 source) Abnormal breath sounds; Translations: [Other abnormalities of breathing] Episodic Other lower respiratory disease (1 source) Elevated diaphragm; Translations: [Disorders of diaphragm] Episodic Other nervous system disorders (7 sources) Postoperative pain ; Translations: [Other acute postprocedural pain] 09-02-2023 Episodic Other nervous system disorders (8 sources) Other acute postprocedural pain; Translations: [Other acute postoperative pain] Onset: 09-01-2023 09-02-2023 Episodic Other non-traumatic joint disorders (14 sources) Hip pain; Translations: [Pain in left hip] 06-25-2023 Episodic Other non-traumatic joint disorders (4 sources) Stiffness of right knee; Translations: [Stiffness of right knee, not elsewhere classified] 11-11-2023 Episodic Other screening for suspected conditions (not mental disorders or infectious disease) (2 sources) Patient encounter status; Translations: [Encounter for other screening for malignant neoplasm of breast] Episodic Other upper respiratory disease (7 sources) Allergic rhinitis; Translations: [Allergic rhinitis, unspecified] Onset: 04-14-2015 09-05-2022 Chronic Residual codes; unclassified (7 sources) Obstructive sleep apnea syndrome; Translations: [Obstructive sleep apnea (adult) (pediatric)] Onset: 12-08-2014 09-05-2022 Chronic Residual codes; unclassified (1 source) Other specified health status; Translations: [Other specified health status] Onset: 09-01-2023 Episodic Spondylosis; intervertebral disc disorders; other back problems (14 sources) 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; Translations: [Other cervical disc displacement, unspecified cervical region] Onset: 01-15-2016 09-05-2022 Chronic Thyroid disorders (7 sources) Multinodular goiter; Translations: [Nontoxic multinodular goiter] Onset: 11-30-2018 09-05-2022 Chronic Past or Other Problems Problem Classification Problem Date Documented Da te Episodic/Chronic Cancer of breast (9 sources) History of malignant neoplasm of breast; Translations: [Personal history of malignant neoplasm of breast] Onset: 06-10-2022 Episodic Other aftercare (1 source) Other superintendent container terminal (current) drug therapy; Translations: [Other superintendent container terminal (current) drug therapy] Onset: 07-17-2023 Episodic Other bone disease and musculoskeletal deformities (9 sources) Osteopenia; Translations: [Other specified disorders of bone density and structure, unspecified site] Onset: 07-27-2013 07-27-2013 Episodic Other connective tissue disease (7 sources) Muscle pain; Translations: [Myalgia, unspecified site] Onset: 03-19-2023 03-19-2023 Episodic Other non-traumatic joint disorders (19 sources) Pain in right knee; Translations: [Right knee pain] Onset: 08-21-2023 06-25-2023 Episodic Other non-traumatic joint disorders (1 source) Pain in left hip; Translations: [Pain in left hip] Onset: 06-26-2023 Episodic Residual codes; unclassified (7 sources) History of right mastectomy; Translations: [Acquired absence of right breast and nipple] Onset: 07-17-2015 09-05-2022 Episodic Residual codes; unclassified (7 sources) Memory impairment; Translations: [Other amnesia] Onset: 12-10-2017 09-05-2022 Episodic Results Test Name Value Interpretation Reference Range Facility XR femur RT 2V*on 11-25-2023 XR femur RT 2V* [facility] [address] [place] [address] XRay Report Signed Patient: Nadia Almeida MR#: [id number] : 1945 Acct:[id number] Age/Sex: 78 / F ADM Date: 11/25/23 [place] [facility] [place] Type: [facility] Attending Dr: Jeevan Sanchez II, MD Copies to: Jeevan Sanchez MD Ordering Provider: Jeevan Sanchez MD Date of Service: 11/25/23 XR/XR femur RT 2V*: Z47.1 - Aftercare following joint replacement surgery ([id number]) XR/XR tibia fibula RT 2V*: Z47.1 - Aftercare following joint replacement surgery ([id number]) XR/XR knee RT 2V: Z47.1 - Aftercare following joint replacement surgery CLINICAL DATA: Follow-up right knee replacement COMPARISON: 08/21/2023 femur and tib-fib and 10/15/2023 right knee RIGHT FEMUR AND TIB-FIB - one view Weightbearing AP view of both lower extremities was obtained from above the acetabula down to the ankles using a long cassette. There is osteopenia. Genu valgum deformity is again noted. A right knee prosthesis is present. The hardware appears intact and unchanged from the prior. There are no developing femoral fractures. There is no dislocation at the hips or knees. There is marginal spurring at the left knee. No soft tissue abnormalities are noted. The tibia and fibula are intact on both sides. There is no dislocation at the ankles. The soft tissues show no focal findings. XR/XR tibia fibula RT 2V* IMPRESSION: STABLE RIGHT KNEE REPLACEMENT. RIGHT KNEE - 2 views Weightbearing AP and lateral views were obtained. There is osteopenia. A knee prosthesis is again visualized. The hardware appears intact and unchanged from the comparison. No developing fractures or dislocation is noted. There is knee effusion. There is mild anterior soft tissue swelling. IMPRESSION: STABLE KNEE REPLACEMENT. Impression dictated by: Jennifer Jon M.D.11/25/2023 5:49 PM Dictation Location: [place] [address] Transcribed By: [facility] 11/25/231748 Dictated By: Jennifer Jon MD 11/25/231744 Signed By: 11/25/231748 Normal [facility] XR knee RT 3V - NOT FOR ER U [facility] 10-15-2023 XR knee RT 3V - NOT FOR ER USE [facility] [address] [place] [address] XRay Report Signed Patient: Nadia Almeida MR#: [id number] : 1945 Acct:[id number] Age/Sex: 77 / F ADM Date: 10/15/23 [place] [facility] [place]: Type: [facility] Attending Dr: Jeevan Sanchez II, MD Copies to: Jeevan Sanchez MD Ordering Provider: Jeevan Sanchez MD Date of Service: 10/15/23 XR/XR knee RT 3V - NOT FOR ER USE: Z47.1 - Aftercare following joint replacement surgery XR knee RT 3V - NOT FOR ER USE 10/15/2023 2:37 PM SIGNS AND SYMPTOMS: Follow-up right total knee arthroplasty PROTOCOL: Frontal, lateral, and sunrise views of the right knee COMPARISON: 09/01/2023 FINDINGS: There is total right knee arthroplasty hardware without hardware complication or malalignment. There is postoperative soft tissue swelling. No joint effusion. XR/XR knee RT 3V - NOT FOR ER USE IMPRESSION: Uncomplicated total right knee RT plasty hardware. No change in alignment. Impression dictated by: Ashwin Brown M.D.10/15/2023 3:57 PM Dictation Location: [place] [address] Transcribed By: [facility] 10/15/231556 Dictated By: Ashwin Brown II, MD 10/15/231555 Signed By: 10/15/231556 Normal [facility] Automated basophil %Ordered By: Jeevan Sanchez on 09-02-2023 Basophils/100 WBC (Bld) 0.3 % Normal . [facility] Comment on above: Performed By: #### B MP #### [address] Automated basophil countOrde red By: Jeevan Sanchez on 09-02-2023 Basophils (Bld) [#/Vol] 0.0 10*3/uL Normal 0.0-0.2 [facility] Comment on above: Result Comment: PERF ORMED BY: [place] [address] PATHOLOGIST HAND SURGEON CAMILO SEBASTIAN M.D. Performed By: #### B MP #### [address] Automated blood monocyte cou ntOrdered By: Jeevan Sanchez on 09-02-2023 Monocytes (Bld) [#/Vol] 0.7 10*3/uL Normal 0.0-0.8 [facility] Comment on above: Performed By: #### B MP #### [address] Automated eosinophil %Ordere d By: Jeevan Sanchez on 09-02-2023 Eosinophils/100 WBC (Bld) 0.8 % Normal . [facility] Comment on above: Performed By: #### B MP #### [address] Automated eosinophil countOr dered By: Jeevan Sanchez on 09-02-2023 Eosinophils (Bld) [#/Vol] 0.1 10*3/uL Normal 0.0-0.45 [facility] Comment on above: Performed By: #### B MP #### [address] Automated monocyte %Ordered By: Jeevan Sanchez on 09-02-2023 Monocytes/100 WBC (Bld) 6.3 % Normal . [facility] Comment on above: Performed By: #### B MP #### [address] Automated neutrophil %Ordere d By: Jeevan Sanchez on 09-02-2023 Neutrophils/100 WBC (Bld) 77.9 % Normal . [facility] Comment on above: Performed By: #### B MP #### [address] Basic Metabolic Panelon 08-11 Creatinine Clr Calc Pharmacy 62.04 Normal [facility] Comment on above: Result Comment: PERF ORMED BY: [place] [address] PATHOLOGIST HAND SURGEON CAMILO SEBASTIAN M.D. Performed By: #### B MP #### [address] GFR/1.73 sq M.predicted MDRD (S/P/Bld) [Vol rate/Area] mL/min/{1.73_m2} Normal [facility] Comment on above: Performed By: #### B MP #### [address] Calcium [Mass/volume] in Ser um or PlasmaOrdered By: Jeevan Sanchez on 09-02-2023 Calcium [Mass/Vol] 8.5 mg/dL Low 8.6-10.3 [facility] Comment on above: Performed By: #### B MP #### [address] Carbon dioxide, total [Moles /volume] in Serum or PlasmaOrdered By: Jeevan Sanchez on 09-02-2023 CO2 [Moles/Vol] 28.5 mmol/L Normal 21.0-31.0 [facility] Comment on above: Performed By: #### B MP #### [address] Chloride [Moles/volume] in S liudmila or PlasmaOrdered By: Jeevan Sanchez on 09-02-2023 Chloride [Moles/Vol] 106 mmol/L Normal 98-107 [facility] Comment on above: Performed By: #### B MP #### [address] Complete Blood Count Auto Di ffon 09-02-2023 Mean Corpuscular HGB Conc 35.3 g/dL High 32.0-35.0 [facility] Comment on above: Performed By: #### B MP #### [address] NRBC% 0.1 /100{WBC} Normal 0-0.5 [facility] Comment on above: Performed By: #### B MP #### [address] Creatinine [Mass/volume] in Serum or PlasmaOrdered By: Jeevan Sanchez on 09-02-2023 Creatinine [Mass/Vol] 0.79 mg/dL Normal 0.60-1.20 [facility] Comment on above: Performed By: #### B MP #### [address] Erythrocyte distribution wid th [Ratio] by Automated countOrdered By: Jeevan Sanchez on 09-02-2023 Erythrocyte distribution width (RBC) [Ratio] 14.0 % Normal 11.9-15.3 [facility] Comment on above: Performed By: #### B MP #### [address] Erythrocytes [#/volume] in B lood by Automated countOrdered By: Jeevan Sanchez on 09-02-2023 RBC (Bld) [#/Vol] 4.09 10*6/uL Normal 3.60-5.[address] [facility] Comment on above: Performed By: #### B MP #### [address] Glucose [Mass/volume] in Ser um or PlasmaOrdered By: Jeevan Sanchez on 09-02-2023 Glucose [Mass/Vol] 118 mg/dL High 70-100 [facility] Comment on above: ADA recommended refe rence rangeRandom Glucose Reference Range is dependent on time and content of last meal. Glucose of more than 200 mg/dL in a nonstressed, ambulatory subject supports the diagnosis of Diabetes Mellitus. Result Comment: [place] Glucose Reference Range is dependent on time and content of last meal. Glucose of more than 200 mg/dL in a nonstressed, ambulatory subject supports the diagnosis of Diabetes Mellitus. ADA recommended reference range Performed By: #### B MP #### [address] Hematocrit [Volume Fraction] of Blood by Automated countOrdered By: Jeevan Sanchez on 09-02-2023 Hematocrit (Bld) [Volume fraction] 35.3 % Normal 34.0-46.4 [facility] Comment on above: Performed By: #### B MP #### [address] Hemoglobin [Mass/volume] in BloodOrdered By: Jeevan Sanchez on 09-02-2023 Hemoglobin (Bld) [Mass/Vol] 12.5 g/dL Normal 11.8-15.4 [facility] Comment on above: Performed By: #### B MP #### [address] Leukocytes [#/volume] correc gatito for nucleated erythrocytes in Blood by Automated counOrdered By: Jeevan Sanchez on 09-02-2023 WBC corrected for nucl RBC Auto (Bld) [#/Vol] 10.5 10*3/uL 3.8-11.6 [facility] Leukocytes [#/volume] in Blo od by Automated countOrdered By: Jeevan Sanchez on 09-02-2023 WBC (Bld) [#/Vol] 10.5 10*3/uL Normal 3.8-11.[address] [facility] Comment on above: Performed By: #### B MP #### [address] Lymphocytes [#/volume] in Bl ood by Automated countOrdered By: Jeevan Sanchez on 09-02-2023 Lymphocytes (Bld) [#/Vol] 1.5 10*3/uL Normal 1.00-4.8 [facility] Comment on above: Performed By: #### B MP #### [address] Lymphocytes/100 leukocytes i n Blood by Automated countOrdered By: Jeevan Sanchez on 09-02-2023 Lymphocytes/100 WBC (Bld) 14.7 % Normal . [facility] Comment on above: Performed By: #### B MP #### [address] MCH [Entitic mass] by Automa gatito countOrdered By: Jeevan Sanchez on 09-02-2023 MCH (RBC) [Entitic mass] 30.5 pg Normal 24.7-34.3 [facility] Comment on above: Performed By: #### B MP #### [address] MCHC Auto (RBC) [Mass/Vol]Or dered By: Jeevan Sanchez on 09-02-2023 MCHC (RBC) [Mass/Vol] 35.3 g/dL High 32.0-35.0 [facility] MCV [Entitic volume] by Auto mated countOrdered By: Jeevan Sanchez on 09-02-2023 MCV (RBC) [Entitic vol] 86.4 fL Normal 80-100 [facility] Comment on above: Performed By: #### B MP #### [place] [address] [place] Neutrophils [#/volume] in Bl ood by Automated countOrdered By: Jeevan Sanchez on 09-02-2023 Neutrophils (Bld) [#/Vol] 8.2 10*3/uL High 1.8-7.7 [facility] Comment on above: Performed By: #### B MP #### [address] No Panel InformationOrdered By: Jeevan Sanchez on 09-02-2023 Estimated GFR (CKD-EPI) > 60.0 mL/Min [facility] Creatinine Clearance (Chem 62.04 [facility] Nucleated erythrocytes [Pres ence] in Blood by Automated countOrdered By: Jeevan Sanchez on 09-02-2023 Nucleated RBC Auto Ql (Bld) 0.1 /100{WBC} 0-0.5 [facility] Platelet mean volume [Entiti c volume] in Blood by Automated countOrdered By: Jeevan Sanchez on 09-02-2023 Platelet mean volume (Bld) [Entitic vol] 7.0 fL Normal 6.3-10.7 [facility] Comment on above: Performed By: #### B MP #### [place] [address] [place] Platelets [#/volume] in Bloo d by Automated countOrdered By: Jeevan Sanchez on 09-02-2023 Platelets (Bld) [#/Vol] 188 10*3/uL Normal 150-450 [facility] Comment on above: Performed By: #### B MP #### [place] [address] [place] Potassium [Moles/volume] in Serum or PlasmaOrdered By: Jeevan Sanchez on 09-02-2023 Potassium [Moles/Vol] 3.9 mmol/L Normal 3.5-5.1 [facility] Comment on above: Performed By: #### B MP #### [address] Serum or plasma anion gap de terminationOrdered By: Jeevan Sanchez on 09-02-2023 Anion gap [Moles/Vol] 8.4 mmol/L Normal 6.0-15.0 [facility] Comment on above: Performed By: #### B MP #### [place] [address] [place] Sodium [Moles/volume] in Ser um or PlasmaOrdered By: Jeevan Sanchez on 09-02-2023 Sodium [Moles/Vol] 139 mmol/L Normal 136-145 [facility] Comment on above: Performed By: #### B MP #### [address] Urea nitrogen [Mass/volume] in Serum or PlasmaOrdered By: Jeevan Sanchez on 09-02-2023 Urea nitrogen [Mass/Vol] 18 mg/dL Normal 7-25 [facility] Comment on above: Performed By: #### B MP #### [place] [address] [place] ABO/Rh Retypeon 09-01-2023 ABO/RH Recheck Result Negative Normal [facility] Comment on above: Result Comment: PERF ORMED BY: [place] [address] PATHOLOGIST HAND SURGEON CAMILO SEBASTIAN M.D. Basic Metabolic Panelon 08-11 Anion gap [Moles/Vol] Not performed Normal 6.0-15.0 [facility] Comment on above: Performed By: #### B MP #### [address] Calcium [Mass/Vol] 8.2 mg/dL Low 8.6-10.3 [facility] Comment on above: Performed By: #### B MP #### [place] [address] [place] Chloride [Moles/Vol] 108 mmol/L High 98-107 [facility] Comment on above: Performed By: #### B MP #### [address] CO2 [Moles/Vol] 22.5 mmol/L Normal 21.0-31.0 [facility] Comment on above: Performed By: #### B MP #### [place] [address] [place] Creatinine [Mass/Vol] 0.81 mg/dL Normal 0.60-1.20 [facility] Comment on above: Performed By: #### B MP #### [place] [address] [place] Creatinine Clr Calc Pharmacy 58.96 Normal [facility] Comment on above: Result Comment: PERF ORMED BY: [place] [address] PATHOLOGIST HAND SURGEON CAMILO SEBASTIAN M.D. Performed By: #### B MP #### [address] GFR/1.73 sq M.predicted MDRD (S/P/Bld) [Vol rate/Area] mL/min/{1.73_m2} Normal [facility] Comment on above: Performed By: #### B MP #### [address] Glucose [Mass/Vol] 149 mg/dL High 70-100 [facility] Comment on above: Result Comment: [facility] Glucose Reference Range is dependent on time and content of last meal. Glucose of more than 200 mg/dL in a nonstressed, ambulatory subject supports the diagnosis of Diabetes Mellitus. ADA recommended reference range Performed By: #### B MP #### [address] Potassium Normal 3.5-5.1 [facility] Comment on above: Result Comment: Spec imen hemolyzed, redraw requested Performed By: #### B MP #### [address] Sodium Normal 136-145 [facility] Comment on above: Result Comment: Spec imen hemolyzed, redraw requested Performed By: #### B MP #### [address] Urea nitrogen [Mass/Vol] 16 mg/dL Normal 7-25 [facility] Comment on above: Performed By: #### B MP #### [place] [address] [place] Sebastian 09-01-2023 L Specimen: [id number] Received: 09/01/23 Status: RIAN Sheridan Num: [id number] Spec Type: Surgical Subm Dr: Jeevan Sanchez MD Tissues: A Joint/Knee (RT KNEE BONE AND TISSUE) Procedures: HE/2, Gross/Micro L4, Decalcification Age/ Patient Sex Location Account Attending Physician Nadia Almeida 77/F [place] [id number] Jeevan Sanchez MD SPEC NUM: [id number] RECD: 09/01/23 STATUS: RIAN SHERIDAN NUM: [id number] BENI: 09/01/23- SUBM DR: Jeevan Sanchez MD ENTERED: 09/01/23 [facility] DR: SPEC TYPE: Surgical DEPT: S ORDERED: HE/2, Gross/Micro L4, Decalcification ORDERED: HE/2, Gross/Micro L4, Decalcification Pathological Diagnosis Knee, right (total knee arthroplasty): Osteoarthritis (degenerative joint disease) Subchondral fibrosis and fatty bone marrow Tenosynovial and dense collagenous tissue with degenerative changes No active inflammation seen Clinical Information DJD Gross Description The specimen is received in formalin, labeled with the patient's name and right knee bone and tissue , and consists of a 16.1 x 10.2 x 2.3 cm aggregate of multiple fragments of dillon- white hemorrhagic bone and fibrous soft tissue. The largest fragment is consistent with tibial plateau, measuring 7.1 x 4.8 x 1.7 cm. There is a 1.8 x 1.1 cm focus of granularity on the articular surface of the tibial plateau. There is mild osteophytic lipping over 10% of the specimen periphery. Serial sectioning shows yellow spongy bone matrix. A gross photo is included. [employer]ment Making Supervisor sections are submitted in A1 (bone following decalcification)-A2 (soft tissue). Specimen: [id number] Received: 09/01/23 Status: RIAN Sheridan Num: [id number] Spec Type: Surgical Subm Dr: Jeevan Sanchez MD Tissues: A Joint/Knee (RT KNEE BONE AND TISSUE) Procedures: HE/2, Gross/Micro L4, Decalcification Patient: Nadia Almeida [id number] (Continued) Specimen: [id number] Received: 09/01/23 (Continued) Signed (signature on file) Ramy De La Cruz Jr., MD 09/03/23 1055 Specimen: [id number] Received: 09/01/23 Status: RIAN Sheridan Num: [id number] Spec Type: Surgical Subm Dr: Jeevan Sanchez MD Tissues: A Joint/Knee (RT KNEE BONE AND TISSUE) Procedures: HE/2, Gross/Micro L4, Decalcification Patient: Nadia Almeida [id number] (Continued) Specimen: [id number] Received: 09/01/23 (Continued) CPT Codes 86775, 38636 BONE AND TISSUE Specimen: [id number] Received: 09/01/23 Status: RIAN Sheridan Num: [id number] Spec Type: Surgical Subm Dr: Jeevan Sanchez MD Tissues: A Joint/Knee (RT KNEE BONE AND TISSUE) Procedures: HE/2, Gross/Micro L4, Decalcification Patient: Nadia Almeida [id number] (Continued) Signed (signature on file) Ramy De La Cruz Jr., MD 09/03/23 1055 Normal [facility] Redraw Potassiumon Potassium [Moles/Vol] 4.2 mmol/L Normal 3.5-5.1 [facility] Comment on above: Result Comment: PERF ORMED BY: [place] [address] PATHOLOGIST HAND SURGEON CAMILO SEBASTIAN M.D. Performed By: #### R EDRAW K, REDRAW NA #### [address] Redraw Sodiumon 09-01-2023 Sodium [Moles/Vol] 139 mmol/L Normal 136-145 [facility] Comment on above: Performed By: #### R EDRAW K, REDRAW NA #### [address] XR knee RT 2Von 09-01-2023 XR knee RT 2V [facility] [place] [address] XRay Report Signed Patient: Nadai Almeida MR#: [id number] : 1945 Acct:[id number] Age/Sex: 77 / F ADM Date: 09/01/23 Loc: [place] Room: Type: [facility] Attending Dr: Jeevan Sanchez II, MD Copies to: Jeevan Sanchez MD Ordering Provider: Jeevan Sanchez MD Date of Service: 09/01/23 XR/XR knee RT 2V: S/P TOTAL KNEE RIGHT KNEE - 2 views CLINICAL HISTORY: Postop TKA COMPARISON: Right knee 06/26/2023 FINDINGS: Soft tissues demonstrate postoperative changes. No hardware complication. XR/XR knee RT 2V IMPRESSION: NO HARDWARE COMPLICATION. Impression dictated by: Vinnie Anand Jr., D.O.09/01/2023 1:45 PM Dictation Location: [place] [address] Transcribed By: [facility] 09/01/23 1345 Dictated By: Vinnie Anand Jr, DO 09/01/23 1345 Signed By: 09/01/23 1345 Normal [facility] XR tibia fibula RT 2V*on XR tibia fibula RT 2V* [facility] [address] [place] [address] XRay Report Signed Patient: Nadia Almeida MR#: [id number] : 1945 Acct:[id number] Age/Sex: 77 / F ADM Date: 08/21/23 [place] [facility] [place] Type[place] [facility] Attending Dr: Jeevan Sanchez II, MD Copies to: Jeevan Sanchez MD Ordering Provider: Jeevan Sanchez MD Date of Service: 08/21/23 XR/XR femur RT 2V*: M17.11 - Unilateral primary osteoarthritis, right knee ([id number]) XR/XR tibia fibula RT 2V*: M17.11 - Unilateral primary osteoarthritis, right knee RIGHT FEMUR AND TIB-FIB - one view COMPARISON: AP pelvis and right knee 06/26/2023 CLINICAL DATA: Preoperative planning for right knee replacement. AP standing view of both lower extremities from above the iliac crest down to the ankles were obtained using a long cassette. There is genu valgum deformity. There are no acute femur fractures. There is no dislocation at the hips or knees. There is narrowing of the lateral tibiofemoral joint compartments bilaterally, right greater than left. There is subchondral cystic change at the central lateral tibial plateau on the left near the tibial spines. There are small marginal spurs bilaterally. The hip joint spaces are symmetric. No soft tissue abnormalities are seen. The tibia and fibula are intact. There is no dislocation at the ankles. No soft tissue abnormalities are noted. 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 Impression dictated by: Jennifer Jon M.D.08/21/2023 4:44 PM Dictation Location: [place] [address] Transcribed By: [facility] 08/21/231643 Dictated By: Jennifer Jon MD 08/21/231641 Signed By: 08/21/231643 Normal [facility] Automated basophil %Ordered By: Jeevan Sanchez on 08-18-2023 Basophils/100 WBC (Bld) 0.6 % Normal . [facility] Comment on above: Performed By: #### B MP #### [address] Automated basophil countOrde red By: Jeevan Sanchez on 08-18-2023 Basophils (Bld) [#/Vol] 0.0 10*3/uL Normal 0.0-0.2 [facility] Comment on above: Result Comment: PERF ORMED BY: [place] [address] PATHOLOGIST HAND SURGEON CAMILO SEBASTIAN M.D. Performed By: #### B MP #### [address] Automated blood monocyte cou ntOrdered By: Jeevan Sanchez on 08-18-2023 Monocytes (Bld) [#/Vol] 0.4 10*3/uL Normal 0.0-0.8 [facility] Comment on above: Performed By: #### B MP #### [address] Automated eosinophil %Ordere d By: Jeevan Sanchez on 08-18-2023 Eosinophils/100 WBC (Bld) 2.9 % Normal . [facility] Comment on above: Performed By: #### B MP #### [address] Automated eosinophil countOr dered By: Jeevan Sanchez on 08-18-2023 Eosinophils (Bld) [#/Vol] 0.2 10*3/uL Normal 0.0-0.45 [facility] Comment on above: Performed By: #### B MP #### [address] Automated monocyte %Ordered By: Jeevan Sanchez on 08-18-2023 Monocytes/100 WBC (Bld) 5.8 % Normal . [facility] Comment on above: Performed By: #### B MP #### [address] Automated neutrophil %Ordere d By: Jeevan Sanchez on 08-18-2023 Neutrophils/100 WBC (Bld) 59.6 % Normal . [facility] Comment on above: Performed By: #### B MP #### [address] Bacteria [Presence] in Urine by AutomatedOrdered By: Jeevan Sanchez on 08-18-2023 Bacteria Auto Ql (U) 4+ [HPF] High None Seen [facility] Basic Metabolic Panelon GFR/1.73 sq M.predicted MDRD (S/P/Bld) [Vol rate/Area] mL/min/{1.73_m2} Normal [facility] Comment on above: Performed By: #### B MP #### [address] Bilirubin Test strip Ql (U)O rdered By: Jeevan Sanchez on 08-18-2023 Bilirubin Ql (U) Negative Negative [facility] Calcium [Mass/volume] in Ser um or PlasmaOrdered By: Jeevan Sanchez on 08-18-2023 Calcium [Mass/Vol] 9.1 mg/dL Normal 8.6-10.3 [facility] Comment on above: Result Comment: PERF ORMED BY: [place] [address] PATHOLOGIST HAND SURGEON CAMILO SEBASTIAN M.D. Performed By: #### B MP #### [address] [place] [address] [place] Carbon dioxide, total [Moles /volume] in Serum or PlasmaOrdered By: Jeevan Sanchez on 08-18-2023 CO2 [Moles/Vol] 31.6 mmol/L High 21.0-31.0 [facility] Comment on above: Performed By: #### B MP #### [place] [address] [place] Chloride [Moles/volume] in S liudmila or PlasmaOrdered By: Jeevan Sanchez on 08-18-2023 Chloride [Moles/Vol] 105 mmol/L Normal 98-107 [facility] Comment on above: Performed By: #### B MP #### [address] Color of Urine by AutoOrdere d By: Jeevan Sanchez on 08-18-2023 Color (U) Yellow Normal Yellow [facility] Comment on above: Order Comment: Name Collection Type:: Clean-Voided Midstream Performed By: #### R EDRAW K, REDRAW NA #### [address] Complete Blood Count Auto Di ffon 08-18-2023 Mean Corpuscular HGB Conc 34.6 g/dL Normal 32.0-35.0 [facility] Comment on above: Performed By: #### B MP #### [address] NRBC% 0.1 /100{WBC} Normal 0-0.5 [facility] Comment on above: Performed By: #### B MP #### [place] [address] [place] Creatinine [Mass/volume] in Serum or PlasmaOrdered By: Jeevan Sanchez on 08-18-2023 Creatinine [Mass/Vol] 0.86 mg/dL Normal 0.60-1.20 [facility] Comment on above: Performed By: #### B MP #### [place] [address] [place] Dipstick and Microscopicon 0 08-18-2023 Bacteria,Urine 4+ High None Seen [facility] Comment on above: Order Comment: Name Collection Type:: Clean-Voided Midstream Performed By: #### R EDRAW K, REDRAW NA #### [facility] [address] [place] [address] [place] Bilirubin,Urine Negative Normal Negative [facility] Comment on above: Order Comment: Name Collection Type:: Clean-Voided Midstream Performed By: #### R EDRAW K, REDRAW NA #### [place] [address] [place] Glucose Ql (U) Normal Normal Normal [facility] Comment on above: Order Comment: Name Collection Type:: Clean-Voided Midstream Performed By: #### R EDRAW K, REDRAW NA #### [place] [address] [place] Hyaline Casts,Urine None Normal 0-8 [facility] Comment on above: Order Comment: Name Collection Type:: Clean-Voided Midstream Performed By: #### R EDRAW K, REDRAW NA #### [place] [address] [place] Mucus,Urine Rare Normal [facility] Comment on above: Order Comment: Name Collection Type:: Clean-Voided Midstream Result Comment: PERF ORMED BY: [place] [address] PATHOLOGIST HAND SURGEON CAMILO SEBASTIAN M.D. Performed By: #### R EDRAGaurav K REDRAW NA #### [place] [address] [place] Nitrite,Urine Negative Normal Negative [facility] Comment on above: Order Comment: Name Collection Type:: Clean-Voided Midstream Performed By: #### R EDRAW K, REDRAW NA #### [place] [address] [place] Occult Blood,Urine Negative Normal Negative [facility] Comment on above: Order Comment: Name Collection Type:: Clean-Voided Midstream Result Comment: PERF ORMED BY: [place] [address] PATHOLOGIST HAND SURGEON CAMILO SEBASTIAN M.D. Performed By: #### R EDRAW K, REDRAW NA #### [address] Protein,Urine Negative Normal Negative [facility] Comment on above: Order Comment: Name Collection Type:: Clean-Voided Midstream Performed By: #### R EDRAW K, REDRAW NA #### [place] [address] [place] RBC,Urine 1-2 Normal 0-4 [facility] Comment on above: Order Comment: Name Collection Type:: Clean-Voided Midstream Performed By: #### R EDRAW K, REDRAW NA #### [address] Specificy [place],Urine 1.022 Normal 1.001-1.03 0 [facility] Comment on above: Order Comment: Name Collection Type:: Clean-Voided Midstream Performed By: #### R EDRAW K, REDRAW NA #### [place] [address] [place] Squamous Epithelial Cell,Urine 1-2 Normal 0-2 [facility] Comment on above: Order Comment: Name Collection Type:: Clean-Voided Midstream Performed By: #### R EDRAW K, REDRAW NA #### [address] Urobilinogen,Urine Normal Normal Normal [facility] Comment on above: Order Comment: Name Collection Type:: Clean-Voided Midstream Performed By: #### R EDRAW K, REDRAW NA #### [place] [address] [place] WBC,Urine 5-9 High 0-4 [facility] Comment on above: Order Comment: Name Collection Type:: Clean-Voided Midstream Performed By: #### R EDRAW K, REDRAW NA #### [place] [address] [place] ECG 12 lead ECGon 08-18-2023 ECG 12 lead ECG [facility] Main [place] [address] [place] [address] Electrocardiograph Report Signed Patient: Nadia Almeida MR#: [id number] : 1945 Acct:[id number] Age/Sex: 77 / F ADM Date: 08/18/23 Loc: Room: Type: [facility] Attending Dr: Jeevan Sanchez II, MD Ordering Provider: Jeevan Sanchez MD Date of Service: 08/18/2310/04/947 ECG/ECG 12 lead ECG: preop Copies to: Test Reason : Blood Pressure : / mmHG Vent. Rate : 061 BPM Atrial Rate : 061 BPM P-R Int : 150 ms QRS Dur : 138 ms QT Int : 464 ms P-R-T Axes : 034 -32 026 degrees QTc Int : 467 ms Normal sinus rhythm Left axis deviation Right bundle branch block Left ventricular hypertrophy Abnormal ECG No previous ECGs available Confirmed by SOREN ALVARADO FAC, NERY ([id number]) on 08/18/2023 12:04:10 PM Referred By: DANIEL Electronically Signed By:NERY DOTY MD FAC Transcribed By: BEATRICE Signed By Nery Doty MD, FACC 08/18/23 1204 Normal [facility] Epithelial cells.squamous [# /area] in Urine sediment by Automated countOrdered By: Jeevan Sanchez on 08-18-2023 Epithelial cells.squamous Auto (Urine sed) [#/Area] 1-2 [HPF] 0-2 [facility] Erythrocyte distribution wid th [Ratio] by Automated countOrdered By: Jeevan Sanchez on 08-18-2023 Erythrocyte distribution width (RBC) [Ratio] 13.9 % Normal 11.9-15.3 [facility] Comment on above: Performed By: #### B MP #### [address] Erythrocytes [#/area] in Uri ne sediment by Automated countOrdered By: Jeevan Sanchez on 08-18-2023 RBC Auto (Urine sed) [#/Area] 1-2 [HPF] 0-4 [facility] Erythrocytes [#/volume] in B lood by Automated countOrdered By: Jeevan Sanchez on 08-18-2023 RBC (Bld) [#/Vol] 4.50 10*6/uL Normal 3.60-5.[address] [facility] Comment on above: Performed By: #### B MP #### [facility] [address] Fructosamineon 08-18-2023 Fructosamine 244 umol/L Normal 0-285 [facility] Comment on above: Result Comment: Publ ished reference interval for apparently healthy subjects between age 20 and 60 is 205 - 285 umol/L and in a poorly controlled diabetic population is 228 - 563 umol/L with a mean of 396 umol/L. Performed at: [facility] [address] [id number] [employer]: Kendell Teague PhD, Phone: [phone] PERFORMED BY: [place] [address] PATHOLOGIST HAND SURGEON CAMILO SEBASTIAN M.D. Performed By: #### B MP #### [facility] [address] [place] [address] Fructosamine [Moles/volume] in Serum or PlasmaOrdered By: Jeevan Sanchez on 08-18-2023 Fructosamine [Moles/Vol] 244 umol/L 0-285 [facility] Comment on above: Published reference interval for apparently healthysubjects between age 20 and 60 is 205 - 285 umol/L and in apoorly controlled diabetic population is 228 - 563 umol/Lwith a mean of 396 umol/L.Performed at: [facility] [address] [id number] Director: Kendell Teague PhD, Phone: [phone] Glucose [Mass/volume] in Ser um or PlasmaOrdered By: Jeevan Sanchez on 08-18-2023 Glucose [Mass/Vol] 109 mg/dL High 70-100 [facility] Comment on above: ADA recommended refe rence rangeRandom Glucose Reference Range is dependent on time and content of last meal. Glucose of more than 200 mg/dL in a nonstressed, ambulatory subject supports the diagnosis of Diabetes Mellitus. Result Comment: [facility] Glucose Reference Range is dependent on time and content of last meal. Glucose of more than 200 mg/dL in a nonstressed, ambulatory subject supports the diagnosis of Diabetes Mellitus. ADA recommended reference range Performed By: #### B MP #### [address] Glucose [Mass/volume] in Uri ne by Test stripOrdered By: Jeevan Sanchez on 08-18-2023 Glucose Test strip (U) [Mass/Vol] Normal mg/dL Normal [facility] Hematocrit [Volume Fraction] of Blood by Automated countOrdered By: Jeevan Sanchez on 08-18-2023 Hematocrit (Bld) [Volume fraction] 39.4 % Normal 34.0-46.4 [facility] Comment on above: Performed By: #### B MP #### [address] Hemoglobin Test strip Ql (U) Ordered By: Jeevan Sanchez on 08-18-2023 Hemoglobin Ql (U) Negative Negative [facility] Hemoglobin [Mass/volume] in BloodOrdered By: Jeevan Sanchez on 08-18-2023 Hemoglobin (Bld) [Mass/Vol] 13.6 g/dL Normal 11.8-15.4 [facility] Comment on above: Performed By: #### B MP #### [place] [address] [place] Hyaline casts [#/area] in Ur ine sediment by Automated countOrdered By: Jeevan Sanchez on 08-18-2023 Hyaline casts Auto (Urine sed) [#/Area] None [LPF] 0-8 [facility] Ketones [Presence] in Urine by Test stripOrdered By: Jeevan Sanchez on 08-18-2023 Ketones Ql (U) Negative Normal Negative [facility] Comment on above: Order Comment: Name Collection Type:: Clean-Voided Midstream Performed By: #### R LASHAWN MACIAS #### [place] [address] [place] Leukocyte esterase [Presence ] in Urine by Test stripOrdered By: Jeevan Sanchez on 08-18-2023 Leukocyte esterase Test strip Ql (U) 1+ High Negative [facility] Comment on above: Order Comment: Name Collection Type:: Clean-Voided Midstream Performed By: #### R EDRAW K, REDRAW NA #### [place] [address] [place] Leukocytes [#/area] in Urine sediment by Automated countOrdered By: Jeevan Sanchez on 08-18-2023 WBC Auto (Urine sed) [#/Area] 5-9 [HPF] High 0-4 [facility] Leukocytes [#/volume] correc gatito for nucleated erythrocytes in Blood by Automated counOrdered By: Jeevan Sanchez on 08-18-2023 WBC corrected for nucl RBC Auto (Bld) [#/Vol] 7.6 10*3/uL 3.8-11.6 [facility] Leukocytes [#/volume] in Blo od by Automated countOrdered By: Jeevan Sanchez on 08-18-2023 WBC (Bld) [#/Vol] 7.6 10*3/uL Normal 3.8-11.6 [facility] Comment on above: Performed By: #### B MP #### [place] [address] [place] Lymphocytes [#/volume] in Bl ood by Automated countOrdered By: Jeevan Sanchez on 08-18-2023 Lymphocytes (Bld) [#/Vol] 2.4 10*3/uL Normal 1.00-4.8 [facility] Comment on above: Performed By: #### B MP #### [place] [address] [place] Lymphocytes/100 leukocytes i n Blood by Automated countOrdered By: Jeevan Sanchez on 08-18-2023 Lymphocytes/100 WBC (Bld) 31.1 % Normal . [facility] Comment on above: Performed By: #### B MP #### [place] [address] [place] MCH [Entitic mass] by Automa gatito countOrdered By: Jeevan Sanchez on 08-18-2023 MCH (RBC) [Entitic mass] 30.3 pg Normal 24.7-34.3 [facility] Comment on above: Performed By: #### B MP #### [address] MCHC Auto (RBC) [Mass/Vol]Or dered By: Jeevan Sanchez on 08-18-2023 MCHC (RBC) [Mass/Vol] 34.6 g/dL 32.0-35.0 [facility] MCV [Entitic volume] by Auto mated countOrdered By: Jeevan Sanchez on 08-18-2023 MCV (RBC) [Entitic vol] 87.6 fL Normal 80-100 [facility] Comment on above: Performed By: #### B MP #### [address] Mucus [Presence] in Urine by AutomatedOrdered By: Jeevan Sanchez on 08-18-2023 Mucus Auto Ql (U) Rare [LPF] [facility] Neutrophils [#/volume] in Bl ood by Automated countOrdered By: Jeevan Sanchez on 08-18-2023 Neutrophils (Bld) [#/Vol] 4.6 10*3/uL Normal 1.8-7.7 [facility] Comment on above: Performed By: #### B MP #### [address] Nitrite Test strip Ql (U)Ord ered By: Jeevan Sanchez on 08-18-2023 Nitrite Ql (U) Negative Negative [facility] No Panel InformationOrdered By: Jeevan Sanchez on 08-18-2023 Estimated GFR (CKD-EPI) > 60.0 mL/Min [facility] Creatinine Clearance (Chem N/A [facility] Nucleated erythrocytes [Pres ence] in Blood by Automated countOrdered By: Jeevan Sanchez on 08-18-2023 Nucleated RBC Auto Ql (Bld) 0.1 /100{WBC} 0-0.5 [facility] PST Type and Screenon 2023 ABO and Rh group Nom (Bld) Blood group B Rh(D) negative Normal [facility] Comment on above: Order Comment: Date of Surgery: [id number] Result Comment: PERF ORMED BY: [place] [address] PATHOLOGIST HAND SURGEON CAMILO SEBASTIAN M.D. Platelet mean volume [Entiti c volume] in Blood by Automated countOrdered By: Jeevan Sanchez on 08-18-2023 Platelet mean volume (Bld) [Entitic vol] 7.0 fL Normal 6.3-10.7 [facility] Comment on above: Performed By: #### B MP #### [place] [address] [place] Platelets [#/volume] in Bloo d by Automated countOrdered By: Jeevan Sanchez on 08-18-2023 Platelets (Bld) [#/Vol] 202 10*3/uL Normal 150-450 [facility] Comment on above: Performed By: #### B MP #### [place] [address] [place] Potassium [Moles/volume] in Serum or PlasmaOrdered By: Jeevan Sanchez on 08-18-2023 Potassium [Moles/Vol] 4.1 mmol/L Normal 3.5-5.1 [facility] Comment on above: Performed By: #### B MP #### [address] Protein Test strip (U) [Mass /Vol]Ordered By: Jeevan Sanchez on 08-18-2023 Protein (U) [Mass/Vol] Negative Negative [facility] Serum or plasma anion gap de terminationOrdered By: Jeevan Sanchez on 08-18-2023 Anion gap [Moles/Vol] 9.5 mmol/L Normal 6.0-15.0 [facility] Comment on above: Performed By: #### B MP #### [place] [address] [place] Sodium [Moles/volume] in Ser um or PlasmaOrdered By: Jeevan Sanchez on 08-18-2023 Sodium [Moles/Vol] 142 mmol/L Normal 136-145 [facility] Comment on above: Performed By: #### B MP #### [facility] [address] Specific gravity Test strip (U) [Rel density]Ordered By: Jeevan Sanchez on 08-18-2023 Specific gravity (U) [Rel density] 1.022 1.001-1.03 0 [facility] Urea nitrogen [Mass/volume] in Serum or PlasmaOrdered By: Jeevan Sanchez on 08-18-2023 Urea nitrogen [Mass/Vol] 19 mg/dL Normal 7-25 [facility] Comment on above: Performed By: #### B MP #### [address] Urine Cultureon 08-18-2023 Bacteria identified Cx Nom (U) ORGANISM: Escherichia coli (O:ESCCOL) [place] Count 50,000 Aerobic FRANK Charge ([id number]) SUSCEPTIBILITY ORGANISM: O:ESCCOL ANTIBIOTIC INTERPRETATION FRANK Amikacin S <16 Amoxacillin/K Clavulanate S <8 Ampicillin S <8 Ampicillin/Sulbactam S <4 Aztreonam S <4 Cefazolin S <2 Cefepime S <2 Ceftazidime S <1 Ceftazidime/Avibactam S <4 Ceftolozane/Tazobactam S <2 Ceftriaxone S <1 Cefuroxime S <4 Ciprofloxacin S <0.25 Ertapenem S <0.5 Gentamicin S <2 Levofloxacin S <0.5 Meropenem S <1 Meropenem/Vaborbactam S <2 Nitrofurantoin S <32 Piperacillin/Tazobactam S <8 Tetracycline S <4 Tigecycline S <2 Tobramycin S <2 Trimethoprim/Sulfamethoxazo le S <0.5 S = SUSCEPTIBLE I = INTERMEDIATE R = RESISTANT BLANK = DATA NOT AVAILABLE, OR DRUG NOT ADVISABLE OR TESTED R* = RESISTANCE DUE TO EXTENDED SPECTRUM BETA-LACTAMASES ESBL = EXTENDED SPECTRUM BETA-LACTAMASE TFG = THYMIDINE-DEPENDENT STRAIN MARIA GUADALUPE = BETA-LACTAMASE POSITIVE IB = INDUCIBLE BETA-LACTAMASE. APPEARS IN PLACE OF 'S' WITH SPECIES KNOWN TO POSSESS INDUCIBLE BETA-LACTAMASES. POTENTIALLY THEY MAY BECOME RESISTANT TO ALL B-LACTAM DRUGS. PERFORMED BY: [place] [address] PATHOLOGIST HAND SURGEON CAMILO SEBASTIAN M.D. Normal [facility] Comment on above: Performed By: #### R STEPAN Zhang REDRAW NA #### [facility] [address] [place] [address] Urine appearanceOrdered By: Jeevan Sanchez on 08-18-2023 Appearance (U) Clear Normal Clear [facility] Comment on above: Order Comment: Name Collection Type:: Clean-Voided Midstream Performed By: #### R STEPAN Zhang, REDRAW NA #### [facility] [address] [place] [address] Urine culture routineOrdered By: Jeevan Sanchez on 08-18-2023 Bacteria identified Cx Nom (U) Escherichia coli Abnormal [facility] Urobilinogen Test strip (U) [Mass/Vol]Ordered By: Jeevan Sanchez on 08-18-2023 Urobilinogen (U) [Mass/Vol] Normal mg/dL Normal [facility] pH of Urine by Test stripOrd ered By: Jeevan Sanchez on 08-18-2023 pH (U) 5.0 [pH] Normal 5.0-9.0 [facility] Comment on above: Order Comment: Name Collection Type:: Clean-Voided Midstream Performed By: #### R STEPAN Zhang, REDRAW NA #### [facility] [address] [place] [address] A1C with Estimated Average G luon 07-17-2023 Glucose [Mass/Vol] 97 mg/dL Normal [facility] Comment on above: Result Comment: PERF ORMED BY: [place] [address] PATHOLOGIST HAND SURGEON CAMILO SEBASTIAN M.D. Performed By: #### C UMRSA, A1C WTH eA, ALB, HGB, [id number] #### [facility] [address] [place] [address] [place] #### NICOTINE #### [facility] , Albumin Levelon 07-17-2023 Albumin [Mass/Vol] 4.2 g/dL Normal 3.5-5.7 [facility] Comment on above: Performed By: #### C UMRSA, A1C WTH eA, ALB, HGB, [id number] #### [facility] [address] [place] [id number] [place] #### NICOTINE #### [facility] , Albumin [Mass/volume] in Ser um or Plasma by Bromocresol green (BCG) dye binding methoOrdered By: Jeevan Sanchez on 07-17-2023 Albumin BCG dye [Mass/Vol] 4.2 g/dL 3.5-5.7 [facility] Cotinine [Mass/volume] in Se rum or PlasmaOrdered By: Jeevan Sanchez on 07-17-2023 Cotinine [Mass/Vol] <1.0 ng/mL . [facility] Comment on above: This test was develo ped and its performance characteristicsdetermined by [facility]. It has not been cleared orapproved by the Food and Drug Administration.Cotinine levels greater than 20.0 are consistent with theuse of tobacco or tobacco cessation products.Performed at: [address] [id number] Director: Evette Bryan MD, Phone: [phone] Glucose mean value [Mass/vol ume] in Blood Estimated from glycated hemoglobinOrdered By: Jeevan Sanchez on 07-17-2023 Average glucose Estimated from glycated hemoglobin (Bld) [Mass/Vol] 97 mg/dL [facility] Hemoglobin A1c percentageOrd ered By: Jeevan Sanchez on 07-17-2023 HbA1c (Bld) [Mass fraction] 5.0 % Normal 4.3-5.6 [facility] Comment on above: Increased risk for d iabetes: 5.7 - 6.4diabetes: >6.4glycemic control for adults with diabetes: <7.0 Result Comment: Incr eased risk for diabetes: 5.7 - 6.4 diabetes: >6.4 glycemic control for adults with diabetes: <7.0 Performed By: #### C UMRSA, A1C WTH eA, ALB, HGB, [id number] #### [address] #### NICOTINE #### [facility] , Hemoglobin [Mass/volume] in BloodOrdered By: Jeevan Sanchez on 07-17-2023 Hemoglobin (Bld) [Mass/Vol] 13.5 g/dL Normal 11.8-15.4 [facility] Comment on above: Result Comment: PERF ORMED BY: [place] [address] PATHOLOGIST HAND SURGEON CAMILO SEBASTIAN M.D. Performed By: #### C UMRSA, A1C WTH eA, ALB, HGB, [id number] #### [address] #### NICOTINE #### [facility] , MRSA Cultureon 07-17-2023 MRSA Culture No MRSA Isolated 2 D ays PERFORMED BY: [place] [address] PATHOLOGIST HAND SURGEON CAMILO SEBASTIAN M.D. Normal [facility] Comment on above: Performed By: #### C UMRSA, A1C WTH eA, ALB, HGB, [id number] #### [address] #### NICOTINE #### [facility] , Nicotine [Mass/volume] in Se rum or PlasmaOrdered By: Jeevan Sanchez on 07-17-2023 Nicotine [Mass/Vol] <1.0 ng/mL . [facility] Comment on above: This test was develo ped and its performance characteristicsdetermined by [facility]. It has not been cleared orapproved by the Food and Drug Administration.Nicotine levels greater than 2.0 are consistent with theuse of tobacco or tobacco cessation products. Nicotine/Cotinine Bloodon Cotinine, Blood <1.0 Normal . [facility] Comment on above: Result Comment: This test was developed and its performance characteristics determined by [facility]. It has not been cleared or approved by the Food and Drug Administration. Cotinine levels greater than 20.0 are consistent with the use of tobacco or tobacco cessation products. Performed at: [facility] [id number] [employer] Meat: Evette Bryan MD, Phone: [phone] PERFORMED BY: [place] [address] PATHOLOGIST HAND SURGEON CAMILO SEBASTIAN M.D. Performed By: #### B MP #### [address] Nicotine, Blood <1.0 Normal . [facility] Comment on above: Result Comment: This test was developed and its performance characteristics determined by [facility]. It has not been cleared or approved by the Food and Drug Administration. Nicotine levels greater than 2.0 are consistent with the use of tobacco or tobacco cessation products. Performed By: #### B MP #### [address] Vitamin D 25 Hydroxy Totalon 07-17-2023 Vitamin D 25 Hydroxy Total 75.8 ng/mL Normal 30-100 [facility] Comment on above: Result Comment: MAL[place] MIN D STATUS 25(OH)VITAMIN D RANGE (ng/mL) Deficient <20 Insufficient 20 to <30 Sufficient 30 to 100 Reference: Judy MF,Roberto NC, Kae CELESTE, et al. Evaluation,treatment, and prevention of vitamin D deficiency; an Endocrine Society clinical practice guideline. JCEM. 2010; 96(7):1911-30. PERFORMED BY: [place] [address] PATHOLOGIST HAND SURGEON CAMILO SEBASTIAN M.D. Performed By: #### C UMRSA, A1C WTH eA, ALB, HGB, [id number] #### [place] [address] [place] #### NICOTINE #### [facility] , Vitamin D+Metabolites [Mass/ volume] in Serum or PlasmaOrdered By: Jeevan Sanchez on 07-17-2023 Vitamin D+Metabolites [Mass/Vol] 75.8 ng/mL 30-100 [facility] Comment on above: VITAMIN D STATUS 25( OH)VITAMIN D RANGE (ng/mL) Deficient <20 Insufficient 20 to <30Sufficient 30 to 100Reference: Judy MF,Roberto MCCABE, Kae CELESTE, et al. Evaluation,treatment, and prevention of vitamin D deficiency; an Endocrine Society clinical practice guideline. JCEM. 2010; 96(7):1911-30. Wound methicillin resistant Staphylococcus aureus (MRSA) cultureOrdered By: Jeevan Sanchez on 07-17-2023 MRSA isol Org specific cx Ql (Unsp spec) No MRSA Isolated 2 Days [facility] XR hip LT min 2V(w/wo pelvis )*on 06-26-2023 XR hip LT min 2V(w/wo pelvis)* [facility] [address] [place] [address] XRay Report Signed Patient: Nadia Almeida MR#: [id number] : 1945 Acct:[id number] Age/Sex: 77 / F ADM Date: 06/26/23 [place] [facility] [place]: Type: [facility] Attending Dr: Jeevan Sanchez II, MD Copies [...] 4:03 PM Dictation Location: RADIO-PC-07 Transcribed By: [facility] 06/26/23 160 Dictated By: Ashwin Brown II, MD 06/26/23 160 Signed By: 06/26/23 160 Normal [facility] XR knee RT 4V*on 06-26-2023 XR knee RT 4V* [facility] [address] [place] [address] XRay Report Signed Patient: Nadia Almeida MR#: [id number] : 1945 Acct:[id number] Age/Sex: 77 / F ADM Date: 06/26/23 [place] [facility] Room: Type: [facility] Attending Dr: Jeevan Sanchez II, MD Copies [...] 4:01 PM Dictation Location: RADIO-PC-12 Transcribed By: [facility] 06/26/23 160 Dictated By: Max Gates DO 06/26/23 1559 Signed By: 06/26/23 160 Normal [facility] CNOVSPon 06-10-2022 CNOVSP Visit (SP) Office (H EMASA) NADIA ALMEIDA ([id number]) 1945 F Date Time Provider Department 06/10/22 10:30 AM GARRETT BELTRÁN During your visit today, we recorded the following information about you: Temperature Pulse Respiration Blood pressure 97.4 degrees 68/minute 16/minute 133/63 Weight Height 80.7 kg 1.68 m Garrett Beltrán MD 06/16/2022 4:20 PM Signed NAME: Nadia Almeida CLINIC NO.: [id number] DATE OF SERVICE: June 10, 2022 ([place]igh Ann) Some elements in this clinic note that are critical to medical decision making have been carefully reviewed and included from a prior clinic note dated: June 04, 2021 Referring Provider: Shaw Francois II CC: Right breast cancer ER/ND positive, HER-2/crescencio negative diagnosed May 2011. ASSESSMENT: [...] ductal carcinoma with DCIS. Receptor status ER [place] positive. HER-2/crescencio was negative. [place] lymph nodes were negative. Mastectomy done 05/14/2011 also showed a 0.5 cm grade 2 ER/ND positive HER-2/crescencio negative invasive ductal carcinoma with [...] lymph node chains. Chaperoned Breast exam (Itzel uLa) with right mastectomy scar and normal left [...] Take 1 tablet by mouth once daily. Mqvumujorbynq-Jtrkzaof-Kgpy in (CENTRUM SILVER) tab Take 1 tablet by mouth once daily. RANITIDINE HCL (ZANTAC ORAL) Take by mouth. (Patient not taking: Reported on 06/10/2022) LABORATORY VALUES: WBC (k/uL) Date Value 06/04/2021 6.65 RBC (m/uL) Date Value 06/04/2021 4.61 Hemoglobin (g/dL) Date Value 06/04/2021 (more content not included)... Normal [facility] MG MAMM SCREEN LT 3D CADon 0 06-03-2022 MG MAMM SCREEN LT 3D CAD Patient: NADIA ALMEIDA Exam Date: 06/03/2022 : 1945 Gender:F Ordering : DR. GARRETT BELTRÁN M.D. Admission #: [id number] Family : DR SHAW FRANCOIS M.D. Order #: [id number] CLICK HERE TO VIEW EXAM RADIOLOGY REPORT [...] breast cancer at age 38. LOCATION: [facility] BREAST COMPOSITION: Scattered areas fibroglandular density. FINDINGS: DIAGNOSTIC CATEGORY 2--BENIGN FINDING. NO CHANGE FROM COMPARISON. LEFT BREAST: No significant suspicious finding. Scattered benign-appearing calcifications are present. RECOMMENDATIONS: ROUTINE MAMMOGRAM AND CLINICAL EVALUATION IN 12 MONTHS. PLEASE NOTE: A NORMAL MAMMOGRAM DOES NOT EXCLUDE THE POSSIBILITY OF BREAST CANCER. A CLINICALLY SUSPICIOUS PALPABLE LUMP SHOULD BE BIOPSIED. Dictated by: Naya Kennedy MD on 06/03/2022 at 11:46 Approved by: Naya Kennedy MD on 06/03/2022 at 11:55 Normal [facility] COVID-19 Positive/NegativeOr dered By: Naya Weber on 05-21-2021 SARS-CoV-2 (COVID-19) N gene ALBINA+probe Ql (Resp) Negative Negative [facility] Comment on above: Testing for SARS-CoV -2 by RT-PCRThis test was developed and its performance characteristics determined by [employer] ([employer]) and validated at the [facility]. This test has not been FDA [...] C-Reactive Proteinon 022 CRP IV <0.3 Normal [facility] Comment on above: Performed By: #### C BC, CRP, ESR, RF, CMP, URIC #### [facility] [address] [place], [place] [id number] Complete Blood Counton 04-25 Erythrocyte distribution width (RBC) [Ratio] 12.8 % Normal 11.0-15.0 [facility] Comment on above: Performed By: #### C BC, CRP, ESR, RF, CMP, URIC #### [facility] [address] [place], [place] [id number] Hematocrit (Bld) [Volume fraction] 43.7 % Normal 35.0-47.0 [place] [facility] Comment on above: Performed By: #### C BC, CRP, ESR, RF, CMP, URIC #### [facility] [address] [place], [place] [id number] Hemoglobin (Bld) [Mass/Vol] 14.5 g/dL Normal 11.6-15.5 [facility] Specialist Comment on above: Performed By: #### C BC, CRP, ESR, RF, CMP, URIC #### [facility] [address] [place], [place] [id number] MCH (RBC) [Entitic mass] 29.5 pg Normal 27.0-33.0 [facility] Comment on above: Performed By: #### C BC, CRP, ESR, RF, CMP, URIC #### [facility] [address], [place] [id number] MCHC (RBC) [Mass/Vol] 33.2 g/dL Normal 32.0-36.0 [facility] Comment on above: Performed By: #### C BC, CRP, ESR, RF, CMP, URIC #### [facility] [address], [place] [id number] MCV (RBC) [Entitic vol] 89 fL Normal 80-100 [facility] Specialist Comment on above: Performed By: #### C BC, CRP, ESR, RF, CMP, URIC #### [facility] [address], [place] [id number] Platelet mean volume (Bld) [Entitic vol] 9.00 fL Normal 7.50-12.50 [facility] Comment on above: Performed By: #### C BC, CRP, ESR, RF, CMP, URIC #### [facility] [address], [place] [id number] Platelets (Bld) [#/Vol] 201 10*3/uL Normal 140-400 [facility] Comment on above: Performed By: #### C BC, CRP, ESR, RF, CMP, URIC #### [facility] [address], [place] [id number] RBC (Bld) [#/Vol] 4.92 10*6/uL Normal 3.90-5.20 [facility] Specialist Comment on above: Performed By: #### C BC, CRP, ESR, RF, CMP, URIC #### [facility] [address], [place] [id number] RDW-SD 41.6 fL Normal 37.0-50.0 [facility] Vocal Artist Comment on above: Performed By: #### C BC, CRP, ESR, RF, CMP, URIC #### [facility] [address], [place] [id number] WBC (Bld) [#/Vol] 7.3 10*3/uL Normal 3.8-11.0 [facility] [place] [facility] Comment on above: Performed By: #### C BC, CRP, ESR, RF, CMP, URIC #### [facility] [address], [place] [id number] Comprehensive Metabolic [facility] 04-25-2021 Albumin [Mass/Vol] 4.5 g/dL Normal 3.6-5.1 [facility] rn [place] Vocal Artist Comment on above: Performed By: #### C BC, CRP, ESR, RF, CMP, URIC #### [facility] [address], [place] [id number] Albumin/Globulin [Mass ratio] 2.1 {ratio} Normal 1.0-2.5 [facility] Vocal Artist Comment on above: Performed By: #### C BC, CRP, ESR, RF, CMP, URIC #### [facility] [address], [place] [id number] ALP [Catalytic activity/Vol] 64 U/L Normal 35-119 [facility] Vocal Artist Comment on above: Performed By: #### C BC, CRP, ESR, RF, CMP, URIC #### [facility] [address], [place] [id number] ALT [Catalytic activity/Vol] 12 U/L Normal 6-33 [facility] Vocal Artist Comment on above: Result Comment: 01/10 Female reference range changed. Performed By: #### C BC, CRP, ESR, RF, CMP, URIC #### [facility] [address], [place] [id number] Anion gap [Moles/Vol] 17 mmol/L Normal 12-20 [facility] Specialist Comment on above: Result Comment: Effe ctive 02/15/2019 reference range changed. Performed By: #### C BC, CRP, ESR, RF, CMP, URIC #### [facility] [address], [place] [id number] AST [Catalytic activity/Vol] 14 U/L Normal 9-34 [facility] Comment on above: Performed By: #### C BC, CRP, ESR, RF, CMP, URIC #### [facility] [address], [place] [id number] Bilirubin [Mass/Vol] 0.67 mg/dL Normal 0.30-1.20 [facility] Comment on above: Performed By: #### C BC, CRP, ESR, RF, CMP, URIC #### [facility] [address], [place] [id number] BUN/CREA 22 Ratio Normal 6-22 [facility] Comment on above: Performed By: #### C BC, CRP, ESR, RF, CMP, URIC #### [facility] [address], [place] [id number] Calcium [Mass/Vol] 9.2 mg/dL Normal 8.6-10.2 [facility] Comment on above: Performed By: #### C BC, CRP, ESR, RF, CMP, URIC #### [facility] [address], [place] [id number] Chloride [Moles/Vol] 104 mmol/L Normal 98-107 [facility] Comment on above: Performed By: #### C BC, CRP, ESR, RF, CMP, URIC #### [facility] [address], [place] [id number] CO2 [Moles/Vol] 24 mmol/L Normal 20-31 [facility] Comment on above: Performed By: #### C BC, CRP, ESR, RF, CMP, URIC #### [facility] [address], [place] [id number] Creatinine [Mass/Vol] 0.7 mg/dL Normal 0.6-1.4 [facility] Comment on above: Performed By: #### C BC, CRP, ESR, RF, CMP, URIC #### [facility] [address], [place] [id number] eGFRAA 95 mL/min/1.73m2 Normal >60 [facility] Specialist Comment on above: Performed By: #### C BC, CRP, ESR, RF, CMP, URIC #### [facility] [address], [place] [id number] eGFRNAA 79 mL/min/1.73m2 Normal >60 [facility] Vocal Artist Comment on above: Performed By: #### C BC, CRP, ESR, RF, CMP, URIC #### [facility] [address], [place] [id number] Globulin (S) [Mass/Vol] 2.1 g/dL Normal 1.9-3.7 [facility] Specialist Comment on above: Performed By: #### C BC, CRP, ESR, RF, CMP, URIC #### [facility] [address], [place] [id number] Glucose [Mass/Vol] 98 mg/dL Normal 65-99 [facility] Vocal Artist Comment on above: Result Comment: For FASTING Glucose --- ADA reference ranges: Normal 65-99 mg/dl Prediabetes 100-125 Diabetes >/= 126 Performed By: #### C BC, CRP, ESR, RF, CMP, URIC #### [facility] [address], [place] [id number] Potassium [Moles/Vol] 4.2 mmol/L Normal 3.5-5.5 [facility] Comment on above: Performed By: #### C BC, CRP, ESR, RF, CMP, URIC #### [facility] [address], [place] [id number] Protein [Mass/Vol] 6.6 g/dL Normal 6.1-8.1 [facility] Vocal Artist Comment on above: Performed By: #### C BC, CRP, ESR, RF, CMP, URIC #### [facility] [address], [place] [id number] Sodium [Moles/Vol] 141 mmol/L Normal 135-146 [facility] Vocal Artist Comment on above: Performed By: #### C BC, CRP, ESR, RF, CMP, URIC #### [facility] [address], [place] [id number] Urea nitrogen [Mass/Vol] 16 mg/dL Normal 7-25 [facility] Comment on above: Performed By: #### C BC, CRP, ESR, RF, CMP, URIC #### [facility] [address] [place] [id number] Q - CARRIE MULTIPLEX W/ REFLEX TO 11 ANTIBODY CASCADEon 04-25-2021 ANACHOICE(R) SCREEN Negative Normal NEGATIVE [facility] Comment on above: Order Comment: [facility] performed at: [employer], [address], [address] [facility], [place], [address], Plastic Welding Machine Operator: Joe Hickey MD [facility] Collection Date/Time: [facility] Results Received Date/Time: [facility] Reported Date/Time: Result Comment: A ne gative CARRIE Multiplex, with Reflex to 11 Antibody Matador indicates the absence of detectable antibodies to component analytes consisting of double stranded DNA (dsDNA), chromatin, ribonucleoprotein (CERTIFIED BENCH JEWELER TECHNICIAN), Boyd/CERTIFIED 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 A negative result should be interpreted in the context of the clinical and laboratory findings and does not rule out autoimmune disease characterized by other autoantibody specificities such as rheumatoid arthritis, autoimmune hepatitis, primary biliary cirrhosis, autoimmune thyroiditis, Lannon's disease, pernicious anemia, autoimmune neuropathies, vasculitis, celiac disease, and bullous disease. For additional information, please refer to [email or web address] [email or web address] (This link is being provided for informational/ educational purposes only.) Performed By: #### 1 [id number] #### [facility] [address] [place] [id number] RBC Sedimentation Rateon ESR (Bld) [Velocity] 7.00 mm/h Normal 0.00-30.00 [facility] Comment on above: Performed By: #### C BC, CRP, ESR, RF, CMP, URIC #### [facility] [address], [place] [id number] Rheumatoid Factoron 04-26-19 22 RF <10 Normal [facility] Vocal Artist Comment on above: Performed By: #### C BC, CRP, ESR, RF, CMP, URIC #### [facility] [address], [place] [id number] Uric Acidon 04-25-2021 URIC 4.8 mg/dL Normal 2.5-7.0 [facility] Vocal Artist Comment on above: Result Comment: Refe rence range change 12/27/2016. Prior reference range F 2.4-5.7mg/dL. M 3.4-7.0 mg/dL. Performed By: #### C BC, CRP, ESR, RF, CMP, URIC #### [facility] [address], [place] [id number] CNPAna Cristina 10-03-2019 CNPN Telephone (FVPRAD) NADIA ALMEIDA ( ) 1945 F Date Time Provider Department 10/03/19 KENNEDY GALAN During your visit today, we recorded the following information about you: Kennedy Galan MD 10/03/2019 1:30 PM Signed Please call the patient and pass on the [employer] message I wrote today to her (in case she does not check my chart). Please send a copy of her CT chest to Dr Beltrán's office with a request to follow-up on the thyroid, kidney and breast abnormalities. Thank you, Kennedy Bruce LPN 10/04/2019 8:[address] Mckeon is with [facility] in [place]. LVM with office triage nurse to have [...] 1 tablet by mouth once d* * [id number] N * Take 1 tablet by mouth once d* Problem List As Of Date 10/03/2019 Noted Resolved Breast cancer, right breast [C50.911] 04/19/2011 Osteopenia [M85.80] 07/27/2013 Encounter Status:Closed by SAMANTHA ZACARIAS LPN on 11/15/[address] [facility] [address] CHEST WO IVCONon 09-28-19 CT CHEST WO IVCON * * *Final Report* * * * * * SEE BOTTOM OF REPORT FOR ADDENDED TEXT * * * DATE OF EXAM: Sep 28 2019 9:28AM [facility] 0541 - CT CHEST WO IVCON / [...] can be further evaluated with renal ultrasound. Machine Straw Hat Presser (topogram) images: No additional findings. IMPRESSION: NO [...] in a patient with INSERT MEDICAL REASON. [employer] 2015 * * * * * * * * ADDENDUM #1 * * * * * * * * COMPARISON: Chest x-rays dated 07/02/2019, 04/17/2011; outside left screening mammogram dated 04/05/2019 Physical Sciences Professor: ZAFAR Transcribe Date/Time: Sep 28 2019 10:35A Dictated by : BILLIE EISENBERG MD This examination was interpreted and the report reviewed and electronically signed by: BILLIE EISENBERG MD on Sep 28 2019 9:50AM EST This document has been addended by: BILLIE EISENBERG MD on Sep 28 2019 10:36AM EST [id number] [facility] GI FLUORO CHEST SNIFF TESTon 09-28-2019 GI FLUORO CHEST SNIFF TEST * * *Final Report* * * DATE OF EXAM: Sep 28 2019 10:15AM [facility] [id number] - GI FLUORO CHEST SNIFF TEST [...] NO FLUOROSCOPIC EVIDENCE OF RIGHT DIAPHRAGMATIC PARALYSIS. Physical Sciences Professor: PSCB Transcribe Date/Time: Sep 28 2019 10:30A Dictated by : BILLIE EISENBERG MD This examination was interpreted and the report reviewed and electronically signed by: BILLIE EISENBERG MD on Sep 28 2019 10:35AM EST [id number] [facility] PROGRESSon 09-28-2019 PROGRESS HNO ID: [id number] Author: Lima Ambrocio (Rt) Service: Radiology Author Type: Center Administrator Type: Progress Notes Filed: 09/28/2019 10:19 AM Note Text: Radiology Service Progress Note PATIENT NAME: Nadia Almeida DATE OF SERVICE: September 28, 2019 TIME: [...] RT Zee September 28, 2019 10:18 AM [facility] PROGRESS HNO ID: [id number] Author: Cathi Rboles (Rt) Service: Radiology Author Type: Center Administrator Type: Progress Notes Filed: 09/28/2019 9:28 AM Note Text: Radiology Service Progress Note PATIENT NAME: Nadia Almeida DATE OF SERVICE: September 28, 2019 TIME: [...] RT Lokesh September 28, 2019 9:25 AM [facility] Coding Summary.on 05-09-2017 Coding Summary. CODING DATE: 018 [facility] STATUS: Home (Routine DC) PAYOR: Medicare [...] Katya Navarrete Date Saved: 05/09/2017 07:[address] [facility] Vital Signs Date Time Vital Sign Value Performing Clinician Facility 09-02-2023 12:21-0400 Body height 166.37 cm II Shaw Francois Work Phone: [facility] 09-02-2023 07:47-0400 Body temperature 97.4 [degF] II Shaw Francois Work Phone: [facility] 09-02-2023 07:47-0400 Diastolic blood pressure 58 mm[Hg] II Shaw Francois Work Phone: [facility] 09-02-2023 07:47-0400 Heart rate 51 /min II Shaw Francois Work Phone: [facility] 09-02-2023 07:47-0400 Respiratory rate 16 /min II Shaw Francois Work Phone: [facility] 09-02-2023 07:47-0400 SaO2% (BldA) [Mass fraction] 97 % II Shaw Francois Work Phone: [facility] 09-02-2023 07:47-0400 Systolic blood pressure 100 mm[Hg] II Shaw Francois Work Phone: [facility] 09-02-2023 05:39-0400 Body weight 86.8 kg II Shaw Francois Work Phone: [facility] 09-01-2023 17:15-0400 Inhaled oxygen flow rate 1 L/min II Shaw Francois Work Phone: [facility] 09-01-2023 10:25-0400 Body mass index (BMI) [Ratio] 29 kg/m2 II Shaw Francois Work Phone: [facility] 06-26-2023 11:43-0400 Body height 170.18 cm II Shaw Francois Work Phone: [facility] 06-26-2023 11:43-0400 Body mass index (BMI) [Ratio] 27.3 kg/m2 II Shaw Francois Work Phone: [facility] 06-26-2023 11:43-0400 Body weight 79.37 kg II Shaw Francois Work Phone: [facility] 06-10-2022 10:20-0400 Body height 168 cm Garrett Beltrán MD Work Phone: [facility] 06-10-2022 10:20-0400 Body temperature 97.39 [degF] Garrett Beltrán MD Work Phone: [facility] 06-10-2022 10:20-0400 Body weight 80.74 kg Garrett Beltrán MD Work Phone: [facility] 06-10-2022 10:20-0400 Diastolic blood pressure 63 mm[Hg] Garrett Beltrán MD Work Phone: [facility] 06-10-2022 10:20-0400 Heart rate 68 /min Garrett Beltrán MD Work Phone: [facility] 06-10-2022 10:20-0400 Respiratory rate 16 /min Garrett Beltrán MD Work Phone: [facility] 06-10-2022 10:20-0400 SaO2% (BldA) [Mass fraction] 97 % Garrett Beltrán MD Work Phone: [facility] 06-10-2022 10:20-0400 Systolic blood pressure 133 mm[Hg] Garrett Beltrán MD Work Phone: [facility] 06-04-2021 10:09-0400 Body height 168 cm Garrett Beltrán MD Work Phone: [facility] 06-04-2021 10:09-0400 Body temperature 97.5 [degF] Garrett Beltrán MD Work Phone: [facility] 06-04-2021 10:09-0400 Body weight 83.01 kg Garrett Beltrán MD Work Phone: [facility] 06-04-2021 10:09-0400 Diastolic blood pressure 53 mm[Hg] Garrett Beltrán MD Work Phone: [facility] 06-04-2021 10:09-0400 Heart rate 66 /min Garrett Beltrán MD Work Phone: [facility] 06-04-2021 10:09-0400 Respiratory rate 16 /min Garrett Beltrán MD Work Phone: [facility] 06-04-2021 10:09-0400 SaO2% (BldA) [Mass fraction] 95 % Garrett Beltrán MD Work Phone: [facility] 06-04-2021 10:09-0400 Systolic blood pressure 128 mm[Hg] Garrett Beltrán MD Work Phone: [facility] Encounters Encounter Date Encounter Type Care Provider Facility Start: 12-03-2023 End: 12-03-2023 ambulatory JACINTO DRAPERI Not Available Start: 11-25-2023 End: 11-25-2023 ambulatory II Shaw Francois Work Phone: [facility] Work Phone: Start: 11-25-2023 End: 11-25-2023 Patient encounter procedure II Shaw Francois Work Phone: [facility] Work Phone: Start: 11-20-2023 End: 11-20-2023 Bamboo flowsheet Antonette Alexandrey PASSENGER AGENT [facility] Start: 11-20-2023 End: 11-20-2023 Bamboo flowsheet Antonette Alexandrey PASSENGER AGENT [facility] Start: 11-20-2023 End: 11-20-2023 Admission to same day surgery center Antonette Gunn PASSENGER AGENT [facility] Comment on above: Acute pain of right knee (Primary Dx); Aftercare following right knee joint replacement surgery; Knee stiffness, right Start: 11-20-2023 End: 11-20-2023 ambulatory Antonette Gunn PASSENGER AGENT [facility] Start: 11-18-2023 End: 11-18-2023 Bamboo flowsheet Antonette Leavittbley PASSENGER AGENT [facility] Start: 11-18-2023 End: 11-18-2023 Bamboo flowsheet Antonette Alexandrey PASSENGER AGENT [facility] Start: 11-18-2023 End: 11-18-2023 Admission to same day surgery center Antonette Gunn PASSENGER AGENT [facility] Comment on above: Acute pain of right knee (Primary Dx); Aftercare following right knee joint replacement surgery; Knee stiffness, right Start: 11-18-2023 End: 11-18-2023 ambulatory Antonette Alexandrey PASSENGER AGENT [facility] Start: 11-13-2023 End: 11-13-2023 Admission to same day surgery center Antonette Gunn PASSENGER AGENT [facility] Comment on above: Acute pain of right knee (Primary Dx); Aftercare following right knee joint replacement surgery; Knee stiffness, right Start: 11-13-2023 End: 11-13-2023 ambulatory Antonette Alexandrey PASSENGER AGENT [facility] Start: 11-13-2023 End: 11-13-2023 Bamboo flowsheet Antonette Alexandrey PASSENGER AGENT [facility] Start: 11-13-2023 End: 11-13-2023 Bamboo flowsheet Antonette Alexandrey PASSENGER AGENT [facility] Start: 11-11-2023 End: 11-11-2023 Admission to same day surgery center Antonette Gunn PASSENGER AGENT [facility] Comment on above: Acute pain of right knee (Primary Dx); Aftercare following right knee joint replacement surgery; Knee stiffness, right Start: 11-11-2023 End: 11-11-2023 ambulatory Antonette Alexandrey PASSENGER AGENT [facility] Start: 11-05-2023 End: 11-05-2023 ambulatory JACKIE PERSAUD Not Available Start: 10-31-2023 End: 10-31-2023 ambulatory ANTONETTE LEAVITTBLEY Not Available Start: 10-29-2023 End: 10-29-2023 ambulatory ANTONETTE LEAVITTBLEY Not Available Start: 10-24-2023 End: 10-24-2023 ambulatory ANTONETTE KELBLEY Not Available Start: 10-21-2023 End: 10-21-2023 ambulatory ANTONETTE KELBLEY Not Available Start: 10-17-2023 End: 10-17-2023 ambulatory ANTONETTE ALEXANDREY Not Available Start: 10-15-2023 End: 10-15-2023 ambulatory II Shaw Francois Work Phone: [facility] Work Phone: Start: 10-15-2023 End: 10-15-2023 Patient encounter procedure II Shaw Francois Work Phone: [facility] [facility] Work Phone: Start: 10-15-2023 End: 10-15-2023 ambulatory ANTONETTENORMA LEAVITTBLEY Not Available Start: 10-09-2023 End: 10-09-2023 ambulatory ANTONETTE KELBLEY Not Available Start: 10-06-2023 End: 10-06-2023 ambulatory PILO OSORIO Not Available Start: 10-01-2023 End: 10-01-2023 ambulatory ANTONETTE KELBLEY Not Available Start: 09-29-2023 End: 09-29-2023 ambulatory JACKIE PERSAUD Not Available Start: 09-26-2023 End: 09-26-2023 ambulatory ANTONETTENORMA LEAVITTBLEY Not Available Start: 09-24-2023 End: 09-24-2023 ambulatory JACKIE T BLACKSTON Not Available Start: 09-18-2023 End: 09-18-2023 ambulatory II Shaw Francois Work Phone: [facility] Work Phone: Start: 09-18-2023 End: 09-18-2023 Patient encounter procedure II Shaw Francois Work Phone: [facility] Work Phone: Start: 09-02-2023 Non-patient / Non-visit II Giovani Francois Work Phone: [facility] Work Phone: Start: 09-01-2023 End: 09-02-2023 Admission to same day surgery center II Shaw Francois Work Phone: [facility] [place] Start: 09-01-2023 End: 09-02-2023 ambulatory II Shaw Francois Work Phone: [facility] Work Phone: Start: 09-01-2023 Non-patient / Non-visit II Giovani Francois Work Phone: [facility] Work Phone: Start: 08-22-2023 End: 08-22-2023 ambulatory II Shaw Francois Work Phone: [facility] Work Phone: Start: 08-22-2023 End: 08-22-2023 Patient encounter procedure II Shaw Francois Work Phone: [facility] Work Phone: Start: 08-21-2023 End: 08-21-2023 Patient encounter procedure II Shaw Francois Work Phone: [facility] Work Phone: Start: 08-21-2023 End: 08-21-2023 Discharged Recurring II Shaw Francois Work Phone: [facility] [place] Start: 08-21-2023 Registered Recurring II Shaw Francois Work Phone: [facility] [place] Start: 08-21-2023 End: 08-21-2023 ambulatory II Shaw Francois Work Phone: [facility] Work Phone: Start: 08-21-2023 End: 08-21-2023 Patient encounter procedure II Shaw Francois Work Phone: [facility] [place] [facility] Start: 08-21-2023 End: 08-21-2023 ambulatory II Shaw Francois Work Phone: [facility] Work Phone: Start: 08-18-2023 End: 08-18-2023 Patient encounter procedure II Shaw Francois Work Phone: [facility] Work Phone: Start: 08-18-2023 End: 08-18-2023 ambulatory II Shaw Francois Work Phone: [facility] Work Phone: Start: 08-18-2023 Encounter for preprocedural laboratory examination Jeevan Sanchez II [facility] Start: 07-24-2023 End: 07-24-2023 ambulatory SHAW FRANCOIS Not Available Start: 07-17-2023 End: 07-17-2023 ambulatory II Shaw Francois Work Phone: [facility] Work Phone: Start: 07-17-2023 End: 07-17-2023 Patient encounter procedure II Shaw Francois Work Phone: [facility] Work Phone: Start: 07-14-2023 End: 07-14-2023 ambulatory SHAW FRANCOIS Not Available Start: 06-26-2023 End: 06-26-2023 Patient encounter procedure II Shaw Francois Work Phone: [facility] [place] [facility] Work Phone: Start: 06-26-2023 End: 06-26-2023 Patient encounter procedure II Shaw Francois Work Phone: [facility] [place] [facility] Start: 06-26-2023 End: 06-26-2023 ambulatory II Shaw Francois Work Phone: [facility] Work Phone: Start: 04-23-2023 End: 04-23-2023 ambulatory FRANCI LAMB Not Available Start: 04-15-2023 End: 04-15-2023 ambulatory JACINTO DUTTA Not Available Start: 12-18-2022 End: 12-18-2022 ambulatory JR., FRANCI C STEPANIC Not Available Start: 06-10-2022 End: 06-10-2022 ambulatory GARRETT BELTRÁN Facility:[facility] Start: 06-10-2022 End: 06-10-2022 Office outpatient [...] encounter procedure Garrett Beltrán MD Work Phone: [facility] Start: 05-21-2021 End: 05-21-2021 Patient encounter procedure II Shaw Francois Work Phone: [facility] Start: 05-08-2017 End: 05-09-2017 Ambulatory SHAW FRANCOIS Facility:[facility] Procedures Date Procedure Procedure Detail Performing Clinician Start: 11-25-2023 Plain X-ray of right femur II Shaw Francois Work Phone: Start: 11-25-2023 Plain X-ray of right tibia and right fibula II Shaw Francois Work Phone: Start: 11-25-2023 X-ray of right knee, two views II Shaw Francois Work Phone: Start: 10-15-2023 X-ray of right knee II Shaw Francois Work Phone: Start: 09-01-2023 X-ray of right knee II Shaw Francois Work Phone: Start: 09-01-2023 Total replacement of right knee joint II Shaw Francois Work Phone: Start: 08-21-2023 Plain X-ray of right femur II Shaw Francois Work Phone: Start: 08-21-2023 Plain X-ray of right tibia and right fibula II Shaw Francois Work Phone: Start: 08-18-2023 Urine culture II Shaw Francois Work Phone: Start: 08-18-2023 Antibody screen Jeevan Sanchez II Comment on above: Order Comment: Date of Surgery: [id number] Result Comment: PERF ORMED BY: [facility] [address] [place] [address] PATHOLOGIST HAND SURGEON CAMILO SEBASTIAN M.D. Start: 07-17-2023 Methicillin resistan t Staphylococcus aureus culture II Shaw Francois Work Phone: Start: 06-26-2023 Plain X-ray of left hip II Shaw Francois Work Phone: Start: 06-26-2023 X-ray of right knee II Shaw Francois Work Phone: Start: 2019 Adult depression screening assessment Garrett Beltrán MD Work Phone: Start: 08-17-2015 H/O: hysterectomy History of hysterectomy Antonette Gunn PASSENGER AGENT Plan of Treatment Date Care Activity Detail Author Start: 06-04-2024 DIABETES SCREEN DIABETES SCREEN [facility] Start: 04-15-2024 End: 04-15-2024 Patient encounter procedure 04/15/2024 1:45 PM EST Office Visit [facility] [address] [place] [address] Jacinto Dutta MD [address] [place] [address] [facility] Start: 12-17-2023 Medicare Annual Well ness (AWV) Medicare Annual Wellness (AWV) [facility] Start: 11-25-2023 Plain X-ray of right femur XR femur RT 2V* [facility] Start: 11-25-2023 Plain X-ray of right tibia and right fibula XR tibia fibula RT 2V* [facility] Start: 11-25-2023 X-ray of right knee, two views XR knee RT 2V [facility] Start: 11-25-2023 XR Femur - right 2 Views [facility] Start: 11-25-2023 XR Knee - right 2 Views [facility] Start: 11-25-2023 XR Tibia and Fibula - right 2 Views [facility] Start: 11-21-2023 End: 11-21-2023 ambulatory 11/21/2023 12:30 PM EDT Treatment [facility] [address] [facility] [address] [place] [address] Antonette Gunn, PASSENGER AGENT [facility] Start: 11-20-2023 End: 11-20-2023 ambulatory [facility] Comment on above: Arrived Start: 11-18-2023 End: 11-18-2023 ambulatory 11/18/2023 12:30 PM EDT Treatment [facility] [address] [place] [address] [place] [address] Antonette Gunn, PASSENGER AGENT [facility] Start: 11-13-2023 End: 11-13-2023 ambulatory 11/13/2023 2:30 PM EDT Treatment [facility] [address] [facility] [address] [place] [address] Antonette Gunn, PASSENGER AGENT [facility] Start: 10-15-2023 X-ray of right knee XR knee RT 3V - NOT FOR ER USE [facility] Start: 10-15-2023 XR Knee - right 3 Views [facility] Start: 10-12-2023 Influenza vaccination Influenza Vacc ine (#1) [facility] Start: 09-03-2023 [facility] Start: 09-02-2023 [facility] Start: 09-01-2023 Hospital admission [facility] Start: 09-01-2023 Referral to clinical spray machine loader [facility] Start: 09-01-2023 Referral to rehabilitation physician [facility] Start: 08-21-2023 Plain X-ray of right femur XR femur RT 2V* [facility] Start: 08-21-2023 Plain X-ray of right tibia and right fibula XR tibia fibula RT 2V* [facility] Start: 08-21-2023 XR Femur - right 2 Views [facility] Start: 08-21-2023 XR Tibia and Fibula - right 2 Views [facility] Start: 08-18-2023 Bacteria identified in Urine by Culture [facility] Start: 08-18-2023 [facility] Start: 07-17-2023 Methicillin resistan t Staphylococcus aureus [Presence] in Unspecified specimen by Organism specific culture [facility] Start: 07-17-2023 [facility] Start: 07-17-2023 MRSA Culture MRSA Culture [facility] Start: 06-11-2023 End: 06-11-2023 CBC W Auto Differential panel - Blood CBC + DIFF Lab Routine Breast screening Expected: 06/11/2023 (Approximate), Expires: 06/11/2023 [facility] Work Phone: Comment on above: Expected: 06/11/2023 (Approximate), Expires: 06/11/2023 Start: 06-11-2023 End: 06-11-2023 Comprehensive metabolic 2000 panel - Serum or Plasma COMP METABOLIC PANEL Lab Routine Breast screening Expected: 06/11/2023 (Approximate), Expires: 06/11/2023 [facility] Work Phone: Comment on above: Expected: 06/11/2023 (Approximate), Expires: 06/11/2023 Start: 06-11-2023 End: 07-10-2023 TORRES SCREENING TORRES SCREENING Radiology Routine Breast screening Expected: 06/11/2023 (Approximate), Expires: 07/10/2023 [facility] Work Phone: Comment on above: Expected: 06/11/2023 (Approximate), Expires: 07/10/2023 Start: 06-03-2022 End: 06-04-2022 CBC W Auto Differential panel - Blood CBC + DIFF Lab Routine Breast screening Malignant 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, estrogen receptor positive, unspecified site of breast (HCC) Expected: 06/03/2022 (Approximate), Expires: 06/04/2022 [facility] Work Phone: Comment on above: Expected: 06/03/2022 (Approximate), Expires: 06/04/2022 Start: 06-03-2022 End: 06-04-2022 Comprehensive metabolic 2000 panel - Serum or Plasma COMP METABOLIC PANEL Lab Routine Breast screening Malignant 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, estrogen receptor positive, unspecified site of breast (HCC) Expected: 06/03/2022 (Approximate), Expires: 06/04/2022 [facility] Work Phone: Comment on above: Expected: 06/03/2022 (Approximate), Expires: 06/04/2022 Start: 05-31-2022 End: 07-04-2022 Screening mammography bi 2-view breast inc cad TORRES SCREENING Radiology Routine Breast screening Malignant 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, estrogen receptor positive, unspecified site of breast (HCC) Expected: 05/31/2022 (Approximate), Expires: 07/04/2022 [facility] Work Phone: Comment on above: Expected: 05/31/2022 (Approximate), Expires: 07/04/2022 Start: 02-10-2022 ADVANCE DIRECTIVE DISCUSSION ADVANCE DIRECTIVE DISCUSSION [facility] Start: 02-10-2022 DEPRESSION ASSESSMENT DEPRESSION ASS ESSMENT [facility] Start: 02-10-2021 ADVANCE DIRECTIVE DISCUSSION ADVANCE DIRECTIVE DISCUSSION [facility] Start: 11-09-2020 Adult depression screening assessment DEPRESSION SCREENING [facility] Start: 11-09-2008 BONE D[address]ITY BONE DENSITY [facility] Start: 11-09-2008 Pneumococcal Vaccine : 65+ Years (1 of 1 - PCV) Pneumococcal Vaccine: 65+ Years (1 of 1 - PCV) [facility] Start: 11-09-1993 SHINGRIX VACCINE (1 of 2) BEARDEN GRIX VACCINE (1 of 2) [facility] Start: 11-09-1962 Urine microalbumin profile DTAP,TDAP,TD (1 - Tdap) [facility] Start: 11-09-1961 HEPATITIS C SCREENING HEPATITIS C SD ZACH [facility] Cotinine [Mass/volum e] in Serum or Plasma [facility] Glucose measurement estimated from glycated hemoglobin [facility] Hemoglobin [Mass/vol ume] in Blood [facility] Nicotine [Mass/volum e] in Serum or Plasma [facility] Patient Education 3M Prevana Plu s 125 Therapy Know your Meds [facility] Work Phone: Patient referral [facility] Work Phone: [facility] Immunizations Immunization Date Immunization Notes Care Provider Fa cili 12-02-2022 influenza, seasonal, injectable Antonette Gunn [facility] 12-02-2022 influenza virus vacc ine, unspecified formulation Antonette Gunn [facility] 12-12-2021 Influenza, Seasonal, Quadrivalent, Adjuvanted Antonette Gunn [facility] 11-27-2021 COVID-19 mRNA Bivale nt Booster (Pfizer) II Shaw Francois Work Phone: [facility] 11-24-2020 COVID-19 mRNA, Comir leonie (Pfizer) II Shaw Francois Work Phone: [facility] 11-17-2020 influenza (aIIV4) vaccine, age 65+ yr, quadrivalent, PF (FLUAD QUADRIVALENT) Garrett Beltrán MD Work Phone: [facility] 03-31-2020 COVID-19 mRNA, Comir leonie (Pfizer) II Shaw Francois Work Phone: [facility] 03-10-2020 COVID-19 mRNA, Comir leonie (Pfizer) MARIA ELENA Francois Work Phone: [facility] 12-07-2019 influenza, high-dose , quadrivalent vaccine (FLUZONE HIGH DOSE QUADRIVALENT) Garrett Beltrán MD Work Phone: [facility] 12-07-2019 pneumococcal conjuga te vaccine, 13 valent Garrett Beltrán MD Work Phone: [facility] 11-24-2019 influenza, seasonal, injectable Garrett Beltrán MD Work Phone: [facility] 11-11-2019 pneumococcal conjuga te vaccine, 13 valent Garrett Beltrán MD Work Phone: [facility] 11-17-2018 influenza, high dose seasonal, preservative-free Antonette Gunn [facility] 11-14-2018 influenza, high dose seasonal, preservative-free Garrett Beltrán MD Work Phone: [facility] 11-24-2017 influenza, high dose seasonal, preservative-free Garrett Beltrán MD Work Phone: [facility] 12-11-2016 influenza, high dose seasonal, preservative-free Garrett Beltrán MD Work Phone: [facility] 11-28-2015 influenza, injectabl e, quadrivalent, contains preservative Garrett Beltrán MD Work Phone: [facility] 07-11-2012 pneumococcal polysaccharide vaccine, 23 valent Garrett Beltrán MD Work Phone: [facility] 11-28-2008 influenza virus vacc ine, whole virus Garrett Beltrán MD Work Phone: [facility] Payers Date Payer Category Payer Self-pay [id number] 2023 Unknown [id number] 2022 Medicare [id number] 2021 Unknown ANTHEM BLUE CROS S AND BLUE SHIELD ANTHEM MEDISARAHUE O [id number] 2021-Rust [phone] [address] [place] [address] O [id number] .[id number] 2020 Unknown [id number] 2017 Unknown [id number] 1945 Unknown [id number] 2.16.840.1.406206.3.579.2.593 1943 Unknown [id number] 2.16.840.1.798249.3.579.2.125 1943 Unknown [id number] 2.16.840.1.720548.3.579.2.125 1943 Unknown [id number] 2.16.840.1.367923.3.579.2.125 1943 Unknown [id number] 2.16.840.1.892584.3.579.2.125 1943 Unknown [id number] 2.16.840.1.418622.3.579.2.125 1943 Unknown [id number] 2.16.840.1.663673.3.579.2.125 1943 Unknown [id number] 2.16.840.1.782131.3.579.2.125 1943 Unknown [id number] 2.16.840.1.361921.3.579.2.125 1943 Unknown [id number] 2.16.840.1.041025.3.579.2.125 1943 Unknown [id number] 2.16.840.1.184575.3.579.2.125 1943 Unknown [id number] 2.16.840.1.112192.3.579.2.125 1943 Unknown [id number] 2.16.840.1.820039.3.579.2.125 1943 Unknown [id number] 2.16.840.1.477879.3.579.2.125 1943 Unknown [id number] 2.16.840.1.444099.3.579.2.125 1943 Unknown [id number] 2.16.840.1.628984.3.579.2.125 1943 Unknown [id number] 2.16.840.1.801055.3.579.2.125 1943 Unknown [id number] 2.16.840.1.848723.3.579.2.125 1943 Unknown [id number] 2.16.840.1.879733.3.579.2.125 1943 Unknown [id number] 2.16.840.1.409843.3.579.2.125 1943 Unknown [id number] 2.16.840.1.527930.3.579.2.125 1943 Unknown [id number] 2.16.840.1.703228.3.579.2.125 1943 Unknown [id number] 2.16.840.1.878393.3.579.2.125 1943 Unknown [id number] 2.16.840.1.913750.3.579.2.125 9 Unknown [id number] 2.16.840.1.751488.3.579.2.531 Unknown [id number] 2.16.840.1.299377.3.579.2.531 Unknown [id number] 2.16.840.1.688859.3.579.2.531 Unknown [id number] 2.16.840.1.170271.3.579.2.531 Unknown [id number] 2.16.840.1.370438.3.579.2.531 Unknown [id number] 2.16.840.1.207352.3.579.2.531 Unknown [id number] 2.16.840.1.181844.3.579.2.531 Unknown [id number] 2.16.840.1.890297.3.579.2.531 Social History Date Type Detail Facility Tobacco smoking stat us NHIS Unknown if ever smoked [facility] Work Phone: Start: 1945 Sex Assigned At Female F [facility] Start: 05-15-2011 End: 09-02-2023 Tobacco smoking status NHIS Never smoked tobacco [facility] Start: 06-04-2021 Alcohol intake Current drinke r of alcohol (finding) [facility] Start: 1945 Sex Assigned At Not on file C [facility] Start: 05-25-2021 End: 06-04-2021 Exposure to SARS-CoV-2 (event) Not sure [facility] Start: 05-15-2011 End: 07-24-2022 Tobacco use and exposure Smokeless tobacco non-user [facility] Start: 09-03-2023 Alcoholic beverage intake Lifetime non-drinker (finding) [facility] Start: 10-09-2022 End: 12-16-2022 History of Social function [facility] Start: 10-09-2022 End: 12-16-2022 Humiliation, Afraid, Rape, and Kick questionnaire [HARK] [facility] Within the last year , have you been afraid of your partner or ex-partner? No [facility] Are you now , , , , never or living with a partner? [facility] Frequency of Alcohol Consumption Not on file [facility] How many standard dr inks containing alcohol do you have on a typical day? 1 or 2 [facility] How often do you hav e 6 or more drinks on 1 occasion? Never [facility] Do you feel stress - tense, restless, nervous, or anxious, or unable to sleep at night because your mind is troubled all the time - these days [OSQ] Only a little [facility] (I/We) worried wheth er (my/our) food would run out before (I/we) got money to buy more. Never true [facility] Start: 08-21-2022 Alcohol Comment caffeine 1-2 c ups per day, coffee:chocolate [facility] NEGATED: Highlighted row [facility] Medical Equipment Procedure Code Equipment Code Equipment Origin al Text Equipment Identifier Dates Arthroplasty, knee, total, minimally invasive Orthopaedic cement, non-medicated [id number] FDA Start: 09-01-2023 Arthroplasty, knee, total, minimally invasive Uncoated knee femur prosthesis, metallic ()[id number] FDA Start: 09-01-2023 Arthroplasty, knee, total, minimally invasive Tibial insert ()[id number] FDA Start: 09-01-2023 Arthroplasty, knee, total, minimally invasive Polyethylene patella prosthesis ()[id number] FDA Start: 09-01-2023 Arthroplasty, knee, total, minimally invasive Knee stem ()[id number] FDA Start: 09-01-2023 Arthroplasty, knee, total, minimally invasive Uncoated knee tibia prosthesis, metallic ()[id number] FDA Start: 09-01-2023 Goals Date Patient Goal Desired Activity /State Functional Status Date Assessment Result Facility 08-18-2023 Functional status Dressing Patient at [facility] Work Phone: Mental Status Date Assessment Result Facility 08-18-2023 Cognitive function Cognitive Sta tus Patient at [facility] Work Phone: Clinical Notes 06-04-2021 to 09-02-2023 Note Date & Type Note Facility 09-02-2023 Consult note Note Date/Time September 02, 2023 8:13am [facility] [address] [place] [address] Physiatry (Rehab) Consult Note Signed Patient: Nadia Almeida MR#: [id number] : 1945 Acct:[id number] Age/Sex: 77 / F Adm Date: 4 Loc: 4N Room: [address] [place] [address] Type: REG SDC Attending Dr: Jeevan Sanchez II, MD Copies to: MD Vinnie Caceres II, MD Robert M Carlisle, MD~ Etiologic Dx/Impairment Group Narrative Narrative: s/p right TKA HPI Consult Date: 09/02/23 Requesting Physician: Jeevan Sanchez II, MD Primary Care Provider: Shaw Francois II, MD Consult Narrative Reason for consult: postop pain, impaired mobility HPI: 77-year-old female POD 1 status post right total knee arthroplasty, complicated by impaired mobility and postoperative pain. Feels generally well, has not been up with therapy. Her goal is to return home, we discussed different options if unable to do so. Review of Systems Review of Systems All other systems reviewed & are negative unless noted below or in HPI PMFSH Medical History Depression Numbness and tingling of both feet Arthritis Hearing decreased wears hearing aids Incontinence stress Hypertension GERD (gastroesophageal reflux disease) Smith's esophagus Breast cancer right masectomy 2010 Problem List clean-up per request of Phys. 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 residual paralysis right side from stroke, also with some dementia Meds Medications and Allergies Allergies Sulfa (Sulfonamide Antibiotics) Allergy (Verified 08/18/23 10:17) Swelling Home Medications cholecalciferol (vitamin D3) 10 mcg (400 unit) capsule (Vitamin D3) 10 mcg PO DAILY 05/22/21 [History Confirmed 08/21/23] levothyroxine 125 mcg tablet (Euthyrox) 125 mcg PO DAILY 05/22/21 [History Confirmed 09/01/23] losartan 25 mg tablet 25 mg PO QAM 05/22/21 [History Confirmed 09/01/23] jfyqimnoujpl-rmjvqylv-jjtmwn tablet 1 tab PO DAILY 05/22/21 [History Confirmed 08/21/23] sertraline 100 mg tablet 50 mg PO QAM 05/22/21 [History Confirmed 08/21/23] omeprazole 40 mg capsule,delayed release 1 cap PO QAM 06/26/23 [History Confirmed 08/21/23] acetaminophen 500 mg tablet (Tylenol Extra Strength) 1,000 mg PO Q8HR PRN pain 08/18/23 [History Confirmed 08/21/23] naproxen sodium 220 mg capsule (Aleve) 220 mg PO BID PRN pain 08/18/23 [History Confirmed 08/21/23] acetaminophen 500 mg tablet 1,000 mg (2 x 500 mg) PO Q8H 30 days #180 tabs 08/21/23 [Rx Confirmed 08/21/23] aspirin 81 mg tablet,delayed release 81 mg PO BID 35 days #70 tabs 08/21/23 [Rx Confirmed 08/21/23] cefadroxil 500 mg capsule 500 mg PO Q12H 7 days #14 tabs 08/21/23 [Rx Confirmed 08/21/23] ondansetron HCl 4 mg tablet 4 mg PO Q8H PRN Nausea #9 tabs 08/21/23 [Rx Confirmed 08/21/23] oxycodone 5 mg tablet 5 mg PO Q4H PRN Pain 7 days #42 tabs 08/21/23 [Rx Confirmed 08/21/23] polyethylene glycol 3350 17 gram/dose oral powder (Miralax) 17 g PO daily 7 days#7 packets 08/21/23 [Rx Confirmed 08/21/23] prednisone 10 mg tablet 10 mg PO daily 10 days #10 tabs 08/21/23 [Rx Confirmed 08/21/23] sennosides 8.6 mg-docusate sodium 50 mg tablet (Senokot-S) 2 tab PO daily 30 days #60 tabs 08/21/23 [Rx Confirmed 08/21/23] tramadol 50 mg tablet 50 mg PO Q6H PRN Pain 10 days #40 tabs 08/21/23 [Rx Confirmed 08/21/23] Exam Physical Exam Vital Signs: Temp Pulse Resp BP Pulse Ox O2 Del Method O2 Flow Rate 97.4 F L 51 L 16 100/58 L 97 Room Air 1 09/02/23 07:47 09/02/23 07:47 09/02/23 07:47 09/02/23 07:47 09/02/23 07:47 09/02/23 07:47 09/01/23 17:15 Narrative: Pleasant NAD Nonlabored breathing Abdomen soft Right knee ROM limited, expected postop edema Bed mobility standby assist. Results - Phys. Rehab Labs Labs: Laboratory Results - last 24 hr 09/01/23 09/01/23 09/01/23 09:27 15:47 18:31 Corrected WBC Uncorrected WBC Count RBC Hgb Hct MCV MCH MCHC RDW Plt Count MPV Neut % (Auto) Lymph % (Auto) [place] % (Auto) Eos % (Auto) Baso % (Auto) Nucleat RBC Rel Count Neut # (Auto) Lymph # (Auto) [place] # (Auto) Eos # (Auto) Baso # (Auto) PHA Creatinine Clear 58.96 Sodium 139 Potassium 4.2 Chloride 108 H Carbon Dioxide 22.5 Anion Gap TNP BUN 16 Creatinine 0.81 Est GFR (CKD-EPI) > 60.0 Glucose 149 H Calcium 8.2 L Blood Type Recheck B Negative 09/02/23 06:17 Corrected WBC 10.5 Uncorrected WBC Count 10.5 RBC 4.09 Hgb 12.5 Hct 35.3 MCV 86.4 MCH 30.5 MCHC 35.3 H RDW 14.0 Plt Count 188 MPV 7.0 Neut % (Auto) 77.9 Lymph % (Auto) 14.7 [place] % (Auto) 6.3 Eos % (Auto) 0.8 Baso % (Auto) 0.3 Nucleat RBC Rel Count 0.1 Neut # (Auto) 8.2 H Lymph # (Auto) 1.5 [place] # (Auto) 0.7 Eos # (Auto) 0.1 Baso # (Auto) 0.0 PHA Creatinine Clear Sodium Potassium Chloride Carbon Dioxide Anion Gap BUN Creatinine Est GFR (CKD-EPI) Glucose Calcium Blood Type Recheck Additional Results Results Comment: I reviewed clinical lab tests, radiology reports and obtained and summated medical records and have ordered follow up lab tests and imaging studies as needed for rehabilitation care. Assessment/Plan (1) Status post total right knee replacement: (2) Hypertension: (3) Osteoarthritis of right knee: Qualifiers: Osteoarthritis type: primary Qualified Code(s): M17.11 - Unilateral primary osteoarthritis, right knee (4) Impaired mobility and activities of daily living: (5) Postoperative pain: Plan 77-year-old female status post right total knee arthroplasty, complicated by impaired mobility and postoperative pain. ? Explained postacute care options including inpatient rehab, [facility], home with home health care or outpatient therapy. Patient to be evaluated this afternoon to determine needs postoperatively, she is aware that she will need continued therapy but would prefer to do it at home if possible. I explained toher that if she is not comfortable with or therapy is more difficult than she would anticipate, that I would work with her insurance to get approval for her rehab unit. She says she does have some assistance from sisters at home, her is handicapped and unable to help . Patient was personally seen by me, Dr. Yin, on the day of encounter, reviewed the history and the relevant portions of the chart, including current orders, allied health and managed services consultant notes, labs/imaging and performed singh elements of exam and I formulated the plan of care and facilitated the medical decision making. I completed a substantive portion of this encounter, the medical decision makingportion of this note in its entirety, including Allied health note review, nursing note review, managed services consultant note review, discussion with nursing and case management, and more than 50% of my time was spent on counseling and coordination of care, time spent 65 minutes Documented By: Vinnie Yin MD 09/02/23 0813 Signed By: <Electronically signed by Vinnie Yin MD> 09/02/23 1422 [facility] Work Phone: 1(718) 320-945307-23-2024 Progress note Author Jeevan Sanchez [facility] September 02, 2023 7:55am Note Date/Time September 02, 2023 7:55 am [facility] [address] [place] [address] Orthopedic Progress Note Signed Patient: Nadia Almeida MR#: [id number] : 1945 Acct:[id number] Age/Sex: 77 / F Adm Date: 4 Loc: 4N Room: 9I5200-5 Type: REG SDC Attending Dr: Jeevan Sanchez II, MD Copies to: ~ Date of Service: 09/02/2023 Subjective Subjective Interval History: Patient resting comfortably in bed this morning. Nursing reports no acute events overnight. Also report she did not get up to thebathroom. Denies chest pain, shortness of breath, or calf pain. Exam Physical Exam Vital Signs: Temp Pulse Resp BP Pulse Ox O2 Del Method O2 Flow Rate 97.4 F L 51 L 16 100/58 L 97 Room Air 1 09/02/23 07:47 09/02/23 07:47 09/02/23 07:47 09/02/23 07:47 09/02/23 07:47 09/02/23 07:47 09/01/23 17:15 Narrative: Right knee immobilizer in place. Ice machine on and working. Prevena on and working; no drainage in container. Foot is warm and well perfused. Sensation intact to light touch. Wiggles their toes and ankle up/down. Nontender to palpation to calf. Objective Labs Labs: Laboratory Results - last 24 hr 09/01/23 09/01/23 09/01/23 09:27 15:47 18:31 Corrected WBC Uncorrected WBC Count RBC Hgb Hct MCV MCH MCHC RDW Plt Count MPV Neut % (Auto) Lymph % (Auto) [place] % (Auto) Eos % (Auto) Baso % (Auto) Nucleat RBC Rel Count Neut # (Auto) Lymph # (Auto) [place] # (Auto) Eos # (Auto) Baso # (Auto) PHA Creatinine Clear 58.96 Sodium 139 Potassium 4.2 Chloride 108 H Carbon Dioxide 22.5 Anion Gap TNP BUN 16 Creatinine 0.81 Est GFR (CKD-EPI) > 60.0 Glucose 149 H Calcium 8.2 L Blood Type Recheck B Negative 09/02/23 06:17 Corrected WBC 10.5 Uncorrected WBC Count 10.5 RBC 4.09 Hgb 12.5 Hct 35.3 MCV 86.4 MCH 30.5 MCHC 35.3 H RDW 14.0 Plt Count 188 MPV 7.0 Neut % (Auto) 77.9 Lymph % (Auto) 14.7 [place] % (Auto) 6.3 Eos % (Auto) 0.8 Baso % (Auto) 0.3 Nucleat RBC Rel Count 0.1 Neut # (Auto) 8.2 H Lymph # (Auto) 1.5 [place] # (Auto) 0.7 Eos # (Auto) 0.1 Baso # (Auto) 0.0 PHA Creatinine Clear Sodium Potassium Chloride Carbon Dioxide Anion Gap BUN Creatinine Est GFR (CKD-EPI) Glucose Calcium Blood Type Recheck [facility]PATIENT [facility] Ambulation: 1 Yes, Ambulation Day of Surgery or 4 hours from PACU discharge [facility] Discharge Exclusion: 3 Unknown Assessment / Plan Assessment and plan (1) Status post total right knee replacement: Code(s): Z96.651 - Presence of right artificial knee joint Plan POD 1 sp R TKA 1. Pain control 2. DVT prophylaxis: GATITO Hose bilaterally, SCDs bilaterally, and aspirin 81 mg twice daily x 35 days postop 3. Perioperative antibiotics IV Ancef and 7 days of Duricef 4. PT/OT: WBAT right lower extremity 5. Appreciate hospitalist assistance with medical management 6. PACU x-rays look good 7. Hemoglobin 12.5 this am, continue Fe and Vit C 8. Today's Plan: work with PT/OT 9. Disposition: pending PT/OT eval, excellent acute inpatient rehab candidate Documented By: Jeevan Sanchez MD 09/02/23 07 52 Signed By: <Electronically signed by Jeevan Sanchez MD> 09/02/23 0755 [facility] Work Phone: 1(272) 199-963407-23-2024 Consult note Author Gm Manning [facility] September 02, 2023 2:33am Note Date/Time September 01, 2023 4:12 pm [facility] [address] [place] [address] Hospitalist Consult Note Signed Patient: Nadia Almeida MR#: [id number] [id number] : 1945 Acct:[id number] Age/Sex: 77 / F Adm Date: 4 Loc: 4N Room: [address] [place] [address] Type: REG [facility] Attending Dr: Jeevan Sanchez II, MD Copies to: MD Carlota Caceres II, MD Jeevan Leyva MD~ HPI DATE OF CONSULTATION: 09/01/23 REQUESTING PROVIDER: Jeevan Sanchez II Consult Narrative Reason for Consult: Hypertension HPI: Ms. Nadia marie is a 77-year-old female with a past medical history of hypertension, hypothyroidism GERD, depression who underwent right total knee arthroplasty secondary to right knee primary osteoarthritis by Dr. Sanchez today. The hospitalist team has been consulted for medical management of hypertension and all other comorbidities. Patient seen and examined post surgery, drowsy but easily arousable. Reporting 7/10 pain from the right leg. Denies chest pain or palpitation. No cough, dyspnea, or pain with inspiration. No abdominal pain or indigestion, constipation or diarrhea, nausea or vomiting. No dysuria or retention. No headache or dizziness. No fevers Review of Systems Review of Systems Review of systems: 10 point review of systems obtained, negative unless noted in the HPI above [facility] Medical History (Updated 09/01/23 @ 16:11 by Carlota Paige APRN) Depression Numbness and tingling of both feet Arthritis Hearing decreased wears hearing aids Incontinence stress Hypertension GERD (gastroesophageal reflux disease) Smith's esophagus Breast cancer right masectomy 2010 Problem List clean-up per request of Phys. 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 some residual paralysis right side from stroke, also with some dementia Meds Medications and Allergies Allergies Sulfa (Sulfonamide Antibiotics) Allergy (Verified 08/18/23 10:17) Swelling Home Medications cholecalciferol (vitamin D3) 10 mcg (400 unit) capsule (Vitamin D3) 10 mcg PO DAILY 05/22/21 [History Confirmed 08/21/23] levothyroxine 125 mcg tablet (Euthyrox) 125 mcg PO DAILY 05/22/21 [History Confirmed 09/01/23] losartan 25 mg tablet 25 mg PO QAM 05/22/21 [History Confirmed 09/01/23] yteuvkokeohk-rhnkkqig-sqxfik tablet 1 tab PO DAILY 05/22/21 [History Confirmed 08/21/23] sertraline 100 mg tablet 50 mg PO QAM 05/22/21 [History Confirmed 08/21/23] omeprazole 40 mg capsule,delayed release 1 cap PO QAM 06/26/23 [History Confirmed 08/21/23] acetaminophen 500 mg tablet (Tylenol Extra Strength) 1,000 mg PO Q8HR PRN pain 08/18/23 [History Confirmed 08/21/23] naproxen sodium 220 mg capsule (Aleve) 220 mg PO BID PRN pain 08/18/23 [History Confirmed 08/21/23] acetaminophen 500 mg tablet 1,000 mg (2 x 500 mg) PO Q8H 30 days #180 tabs 08/21/23 [Rx Confirmed 08/21/23] aspirin 81 mg tablet,delayed release 81 mg PO BID 35 days #70 tabs 08/21/23 [Rx Confirmed 08/21/23] cefadroxil 500 mg capsule 500 mg PO Q12H 7 days #14 tabs 08/21/23 [Rx Confirmed 08/21/23] ondansetron HCl 4 mg tablet 4 mg PO Q8H PRN Nausea #9 tabs 08/21/23 [Rx Confirmed 08/21/23] oxycodone 5 mg tablet 5 mg PO Q4H PRN Pain 7 days #42 tabs 08/21/23 [Rx Confirmed 08/21/23] polyethylene glycol 3350 17 gram/dose oral powder (Miralax) 17 g PO daily 7 days#7 packets 08/21/23 [Rx Confirmed 08/21/23] prednisone 10 mg tablet 10 mg PO daily 10 days #10 tabs 08/21/23 [Rx Confirmed 08/21/23] sennosides 8.6 mg-docusate sodium 50 mg tablet (Senokot-S) 2 tab PO daily 30 days #60 tabs 08/21/23 [Rx Confirmed 08/21/23] tramadol 50 mg tablet 50 mg PO Q6H PRN Pain 10 days #40 tabs 08/21/23 [Rx Confirmed 08/21/23] Active Medications: Active Medications Generic Name Dose Route Start Last Admin Trade Name Freq PRN Reason Stop Dose Admin Acetaminophen 1,000 mg 09/01/23 15:30 09/01/23 15:59 Acetaminophen 500 Mg Tablet PO 08/31/24 15:29 Not Given Q8HR KENNETH Ascorbic Acid 500 mg 09/01/23 17:00 Ascorbic Acid 500 Mg Tablet PO 08/31/24 16:59 BID.WITH.MEALS KENNETH Aspirin 81 mg 09/01/23 21:00 Aspirin 81 Mg Tablet. PO 08/31/24 20:59 BID KENNETH Cefadroxil 500 mg 09/02/23 14:30 Cefadroxil 500 Mg Capsule PO 09/08/23 21:01 BID KENNETH Diphenhydramine HCl 25 mg 09/01/23 15:17 Diphenhydramine 25 Mg Capsule PO 08/31/24 15:16 Q6H PRN Itching Ferrous Sulfate 324 mg 09/01/23 17:00 Ferrous Sulfate 324 Mg Tablet.Dr CLIFTON 08/31/24 16:59 BID.WITH.MEALS KENNETH Lactated Ringer's 1,000 mls @ 20 mls/hr 09/01/23 10:30 09/01/23 14:07 Lactated Ringers IV 09/02/23 10:29 20 mls/hr .Q24H ONE Infusion Cefazolin Sodium 2 gm in 50 mls @ 100 mls/hr 09/01/23 18:29 Ancef IV 09/02/23 02:58 Q8H KENNETH Lactated Ringer's 1,000 mls @ 75 mls/hr 09/01/23 15:30 09/01/23 16:01 Lactated Ringers IV 08/31/24 15:29 75 mls/hr .[id number] KENNETH Administration Lidocaine HCl 0.1 ml 09/01/23 10:30 Lidocaine 1% 50 Ml Vial INTRADERMA PREOP PRN Venipuncture x 1 Dose Mineral Oil 1 each 09/04/23 15:17 Mineral Oil ([place]) 1 Each Enema ND ONCE PRN Constipation Morphine Sulfate 15 mg 09/01/23 15:17 Morphine Sulfate 12hr Er 15 Mg Tablet.Er PO Q12H PRN Pain Naloxone HCl 0.4 mg 09/01/23 15:17 Naloxone Hcl 0.4 Mg/Ml Vial IV-PUSH 08/31/24 15:16 Q2M PRN Opioid Reversal Ondansetron HCl 8 mg 09/01/23 15:17 Ondansetron Odt 4 Mg Tab.Rapdis PO 08/31/24 15:16 TID PRN Nausea Oxycodone HCl 5 mg 09/01/23 15:17 Oxycodone Ir 5 Mg Tablet PO Q4HR PRN Pain Scale 6 - 10 Pantoprazole Sodium 40 mg 09/02/23 09:00 Pantoprazole [address].Dr CLIFTON 10/01/23 09:01 DAILY KENNETH Polyethylene Glycol 17 gm 09/02/23 09:00 Polyethylene Glycol 3350 17 Gm Powd.Pack PO 09/09/23 08:59 DAILY [facility] Prednisone 10 mg 09/02/23 09:00 Prednisone 10 Mg Tablet PO 10/01/23 09:01 DAILY KENNETH Prochlorperazine Maleate 10 mg 09/01/23 15:17 Prochlorperazine Maleate 5 Mg Tablet PO 08/31/24 15:16 Q6H PRN Nausea Senna/Docusate Sodium 2 tab 09/02/23 09:00 Sennosides/Docusate 8.6-50mg 1 Tab Tablet PO 10/02/23 08:59 DAILY [facility] Sodium Chloride 0 ml 09/01/23 10:30 Sodium Chloride 0.9 % 10 Ml Syringe IV-PUSH 08/31/24 10:29 PRN PRN Flush Sodium Chloride 0 ml 09/01/23 10:30 Sodium Chloride 0.9 % 10 Ml Syringe IV-PUSH 08/31/24 10:29 PRN PRN Flush Sodium Chloride 0 ml 09/01/23 22:00 Sodium Chloride 0.9 % 10 Ml Syringe IV-PUSH 08/31/24 21:59 QSHIFT [facility] Temazepam 7.5 mg 09/01/23 15:17 Temazepam 7.5 Mg Capsule PO 02/28/24 15:16 QHS PRN Insomnia Tramadol HCl 50 mg 09/01/23 15:17 Tramadol 50 Mg Tablet PO 02/28/24 15:16 Q6H PRN Pain Scale 1 - 5 Exam Physical Exam Vital Signs: Temp Pulse Resp BP Pulse Ox O2 Del Method O2 Flow Rate 97.5 F L 67 10 L 146/78 H 100 Nasal Cannula 3 09/01/23 13:10 09/01/23 15:45 09/01/23 15:45 09/01/23 15:45 09/01/23 15:45 09/01/23 15:45 09/01/23 15:45 Narrative: CONST-drowsy, easily arousable HEAD - Normocephalic and atraumatic EENT-Sclera nonicteric and conjunctive are nonerythemic, moist oral mucosa, pharynx clear NECK-Supple, no cervical lymphadenopathy CARDIAC-normal rate, regular rhythm, normal S1 & S2. PULM-diminished without wheeze or rhonchi, RA, no accessory muscle use or cough noted ABD - Soft. Bowel sounds are normal. No distention No tenderness EXTREM-no edema BLE calves nontender. Right leg tenderness SKIN-right leg immobilized, surgical dressing intact MS- MAEX4 spontaneously with equal with equal strength NEURO- A&Ox3 speech clear and tongue midline, equal facial symmetry no focal motor deficits PSYCH-Mood, affect and behavior appropriate Results - Hospitalist Consult Lab Results Labs: Laboratory Results - last 72 hr 09/01/23 09:27: Blood Type Recheck B Negative Assessment & Plan Assessment/Plan (1) Osteoarthritis of right knee: Plan Hypertension, improved * Resume home losartan in a.m., start hydralazine 10 IV as needed Hypothyroidism?resume levothyroxine GERD?resume omeprazole Right knee primary osteoarthritis, status post right total knee arthroplasty today by Dr. Sanchez * Continue plan of care per orthopedic * DVT prophylaxis per orthopedics * Continue pain management as needed * PT/OT to eval and treat * * Attending Physician Attestation: I agree with the findings and plan as documented in this note and have edited itif needed to reflect my findings and plan. Gm Manning MD Documented By: Carlota Paige APRN 09/01/23 1607 Signed By: <Electronically signed by DAWN Paige> 09/01/23 1653 <Electronically signed by Gm Manning MD> 09/02/23 0237 [facility] Work Phone: [phone] 998-346905-01-2023 NoteHNO ID: [id number] Author: Garrett Beltrán MD Service: ? Author Type: Physician Type: Progress Notes Filed: 06/16/2022 4:20 PM Note Text: NAME: Nadia Almeida [facility] NO.: [id number] DATE OF SERVICE: June 10, 2022 ([place]igh Ann) Some elements in this clinic note that are critical to medical decision making have been carefully reviewed and included from a prior clinic note dated: June 04, 2021 Referring Provider: Shaw Francois II CC: Right breast cancer ER/ND positive, HER-2/crescencio negative diagnosed May 2011. ASSESSMENT: [...] ductal carcinoma with DCIS. Receptor status ER ND positive. HER-2/crescencio was negative. [place] lymph nodes were negative. Mastectomy done 05/14/2011 also showed a 0.5 cm grade 2 ER/ND positive HER-2/crescencio negative invasive ductal carcinoma with [...] Take 1 tablet by mouth once daily. Pcolwknjlncbd-Yeidufoj-Wjmfbd (CENTRUM SILVER) tab Take 1 tablet by [...] (fL) Date Value 04/ (more content not included)...[facility]05-01-2023 Instructions* Patient Instructions* Garrett Beltrán MD - 06/10/2022 11:07 AM EDT RTC PRN Order mammogram Left side in 1 year but CC: to Dr. Francois and Follow up with Dr. Francois for labs and exam in 1 year. documented [facility] History of Present illness Narrative* Garrett Beltrán MD - 06/10/2022 10:21 AM EDT Images from the original note were not included. NAME: Nadia Almeida [facility] NO.: [id number] DATE OF SERVICE: June 10, 2022 (Leigh Ann) Some elements in this clinic note that are critical to medical decision making have been carefully reviewed and included from a prior clinic note dated: June 04, 2021 Referring Provider: Shaw Francois II CC: Right breast cancer ER/ND positive, HER-2/crescencio negative diagnosed May 2011. ASSESSMENT: 76 year old woman with early stage right breast cancer receiving no radiation and having completed 5 years of adjuvant hormone suppression in June 2016, with no evidence of recurrence. Thefairly large thyroid nodule was evaluated by Dr. [...] years in 06/2016. 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 HER-2/crescencio was negative. [place] lymph nodes were negative. Mastectomy done 05/14/2011 also showed a 0.5 cm grade 2 ER/ND positive HER-2/crescencio negative invasive ductal carcinoma with [...] Resp 16 Ht 5' 6.142 (1.68m) Wt 178lb (80.7kg) SpO2 97% BMI 28.61 kg/(m^2). Body [...] Take 1 tablet by mouth once daily. Czhbupsjfryow-Vaplxtmb-Gdpasg (CENTRUM SILVER) tab Take 1 tablet by [...] breast (HCC) 04/2011 T1N0Mx - stage 1, ER+ND+HER2- HTN (hypertension) PAST SURGICAL HISTORY Procedure Laterality [...] cancers [Other]) Unknown no known family h/o: ovarian,uterine,colon,pancreatic,thyroid,brain,melenoma,leukemia,sarcomas Prostate Cancer Maternal Grandfather I spent a total of 30 minutes on the date of the service which included preparing to see the patient, iali-vq-sbrz patient care, completing clinical documentation, performing a medically appropriate examination and ordering medications, tests, or procedures. Garrett Beltrán MD, CPE [place], [place] CC: Shaw Francois II, MD [address] [place] [id number] documented in this encounterSt[facility] History of Present illness Narrative* Garrett Beltrán MD - 06/04/2021 10:47 AM EDT Images from the original note were not included. NAME: Nadia Almeida CLINIC NO.: [id number] DATE OF SERVICE: June 04, 2021 Some elements in this clinic note that are critical to medical decision making have been carefully reviewed and included from a prior clinic note dated: December 04, 2020 Referring Provider: Shaw Francois II CC: Right breast cancer ER/ND positive, HER-2/crescenico negative diagnosed May 2011. ASSESSMENT: 75 year old woman with early stage right breast cancer receiving no radiation and having completed 5 years of adjuvant hormone suppression in June 2016, with no evidence of recurrence. Thefairly large thyroid nodule was evaluated by Dr. [...] years in 06/2016. 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 HER-2/crescencio was negative. [place] lymph nodes were negative. Mastectomy done 05/14/2011 also showed a 0.5 cm grade 2 ER/ND positive HER-2/crescencio negative invasive ductal carcinoma with [...] Resp 16 Ht 5' 6.142 (1.68m) Wt 183lb (83.0kg) SpO2 95% BMI 29.41 kg/(m^2). Body [...] Take 1 tablet by mouth once daily. Otwduhpuukxiv-Jrbeepzs-Tgzkii (CENTRUM SILVER) ORAL Tab Take 1 tablet [...] breast (HCC) 04/2011 T1N0Mx - stage 1, ER+ND+HER2- HTN (hypertension) PAST SURGICAL HISTORY Procedure Laterality [...] cancers [Other]) Unknown no known family h/o: ovarian,uterine,colon,pancreatic,thyroid,brain,melenoma,leukemia,sarcomas Prostate Cancer Maternal Grandfather I spent a total of 30 minutes on the date of the service which included preparing to see the patient, iqjt-gy-iljm patient care, completing clinical documentation, performing a medically appropriate examination and ordering medications, tests, or procedures. Garrett Beltrán MD, [facility] [place], [place] CC: Shaw Francois II, MD [address] [place] [id number] documented in this encounterSt. [facility] Nurse Note* Ethel Cervantes MA - 06/04/2021 10:20 AM EDT Patient would like a breast exam states it has been awhile since one was performed. Ethel Cervantes MA documented in this encounterSt. [facility] HospitalEval[facility] [place] noteNo assessment information availableMemorial Hospital Work Phone: evaluation note* Diagnosis Breast screening- Primary Breast screening, unspecified Malignant 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, estrogen receptor positive, unspecified site of breast (HCC) Abnormal breath sounds Abnormal chest sounds Elevated hemidiaphragm Disorders of diaphragm documented in this encounter [facility] note* Diagnosis History of breast cancer- Primary Personal history of malignant neoplasm of breast Breast screening Breast screening, unspecified Malignant 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, estrogen receptor positive, unspecified site of breast (HCC) documented [facility] this encounter [facility] [place] [facility]* Diagnosis Onset Date Resolution Status Osteoarthritis of right knee acute [facility] Work Phone: evaluation note* Diagnosis Onset Date Resolution Status Osteoarthritis of right knee acute Osteoarthritis of right knee acute [facility] Work Phone: evaluation note* Diagnosis Onset Date Resolution Status Osteoarthritis of right knee acute Osteoarthritis of right knee acute Osteoarthritis of right knee acute [facility] Work Phone: evaluation note* Diagnosis Onset Date Resolution Status Osteoarthritis of right knee acute Osteoarthritis of right knee acute Osteoarthritis of right knee acute Hypertension acute Impaired mobility and activities of daily living acute Osteoarthritis of right knee acute Postoperative pain acute Status post total right knee replacement acute [facility] Work Phone: evaluation note* Diagnosis Onset Date Resolution Status Osteoarthritis of right knee acute Osteoarthritis of right knee acute Osteoarthritis of right knee acute Hypertension acute Impaired mobility and activities of daily living acute Osteoarthritis of right knee acute Postoperative pain acute Status post total right knee replacement acute Aftercare following right knee joint replacement surge ry acute Status post total right knee replacement acute [facility] Work Phone: evaluation note* Diagnosis Onset Date Resolution Status Osteoarthritis of right knee acute Osteoarthritis of right knee acute Hypertension acute Impaired mobility and activities of daily living acute Osteoarthritis of right knee acute Postoperative pain acute Status post total right knee replacement acute Aftercare following right knee joint replacement surge ry acute Status post total right knee replacement acute [facility] Work Phone: Evaluation note* Diagnosis Onset Date Resolution Status Osteoarthritis of right knee acute Osteoarthritis of right knee acute Hypertension acute Impaired mobility and activities of daily living acute Osteoarthritis of right knee acute Postoperative pain acute Status post total right knee replacement acute Aftercare following right knee joint replacement surge ry acute Status post total right knee replacement acute Aftercare following right knee joint replacement surge ry acute Status post total right knee replacement acute [facility] Work Phone: Evaluation note* Diagnosis Onset Date Resolution Status Osteoarthritis of right knee acute Hypertension acute Impaired mobility and activities of daily living acute Osteoarthritis of right knee acute Postoperative pain acute Status post total right knee replacement acute Aftercare following right knee joint replacement surge ry acute Status post total right knee replacement acute Aftercare following right knee joint replacement surge ry acute Status post total right knee replacement acute [facility] Work Phone: Evaluation note* Diagnosis Acute pain of right knee- Primary Aftercare following right knee joint replacement surgery Knee stiffness, right [facility] Diagnosis Acute pain of right knee- Primary Aftercare following right knee joint replacement surgery Knee stiffness, right [facility] Diagnosis Acute pain of right knee- Primary Aftercare following right knee joint replacement surgery Knee stiffness, right [facility] Diagnosis Acute pain of right knee- Primary Aftercare following right knee joint replacement surgery Knee stiffness, right [facility] Diagnosis Onset Date Resolution Status Hypertension acute Impaired mobility and activities of daily living acute Osteoarthritis of right knee acute Postoperative pain acute Status post total right knee replacement acute Aftercare following right knee joint replacement surge ry acute Status post total right knee replacement acute Aftercare following right knee joint replacement surge ry acute Status post total right knee replacement acute Aftercare following right knee joint replacement surge ry acute [facility] Work Phone: Reason for referral (narrative)* Diagnostic Procedure Only (Routine) - Pending Review Specialty Diagnoses / Procedures Referred By Contac t Referred To Contact [facility] Diagnoses Breast screening Malignant 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, estrogen receptor positive, unspecified site of breast (HCC) Procedures TORRES SCREENING SCREENING MAMMOGRAPHY BI 2-VIEW BREAST INC Garrett Joyce MD [address] [place] [address] [facility] [address] [place] [address] Referral ID Status Reason Start Date Expiration Date Visits Requested Visits Authorized [id number] Pending Review Auto-Generat ed Referral 05/31/2022 07/04/2022 [facility] Diagnostic Procedure Only (Routine) - Pending Review Specialty Diagnoses / Procedures Referred By Contac t Referred To Contact [facility] Diagnoses Breast screening Procedures TORRES SCREENING SCREENING MAMMOGRAPHY BI 2-VIEW BREAST INC CAD Garrett Beltrán MD [address] [place] [address] [place] [address] [facility] [address] [place] [address] Referral ID Status Reason Start Date Expiration Date Visits Requested Visits Authorized [id number] Pending Review Auto-Generat ed Referral 06/11/2023 07/10/2023 1 1 [facility] Summary Purpose Family History No Family History Records Found Relationship Condition Age at Onset Recorded Date/T derrick sister Malignant neoplasm of breast Unknown brother Unknown father Unknown Not Specified Unknown Relationship Condition Age at Onset Recorded Date/T derrick sister Malignant neoplasm of breast Unknown brother Unknown father Unknown mother Unknown Advance Directives No Advanced Directives Records Found Advance Directive Response Recorded Date/ Time Advance Directives No May 16 2:08pm Documents on File Type Date 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 Advance Directive(s) 06/03/2016 2:33 PM Chief Complaint and Reason for Visit Chief Complaint 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 Chief Complaint M25.552 - Pain in le ft hip M25.561 - Pain in right NEW RT KNEE AND LT HIP PAIN NX Reason for Visit Osteoarthritis of ri ght knee Chief Complaint M25.552 - Pain in le ft hip M25.561 - Pain in right NEW RT KNEE AND LT HIP PAIN NX OP SP RT KNEE PAIN Reason for Visit Osteoarthritis of ri ght knee Osteoarthritis of right knee Chief Complaint M25.552 - Pain in le ft hip M25.561 - Pain in right NEW RT KNEE AND LT HIP PAIN NX OP SP RT KNEE PAIN M81.0 Z79.899 M17.11 Reason for Visit Osteoarthritis of ri ght knee Osteoarthritis of right knee Chief Complaint M25.552 - Pain in le ft hip M25.561 - Pain in right NEW RT KNEE AND LT HIP PAIN NX OP SP RT KNEE PAIN M81.0 Z79.899 M17.11 Knee Pain Reason for Visit Osteoarthritis of ri ght knee Osteoarthritis of right knee Chief Complaint M25.552 - Pain in le ft hip M25.561 - Pain in right NEW RT KNEE AND LT HIP PAIN NX OP SP RT KNEE PAIN M81.0 Z79.899 M17.11 Knee Pain M17.11 - Unilateral primary osteoarthritis, right Preop R TKA H&P RTKA Reason for Visit Osteoarthritis of ri ght knee Osteoarthritis of right knee Osteoarthritis of right knee Chief Complaint M25.552 - Pain in le ft hip M25.561 - Pain in right NEW RT KNEE AND LT HIP PAIN NX OP SP RT KNEE PAIN M81.0 Z79.899 M17.11 Knee Pain M17.11 - Unilateral primary osteoarthritis, right Preop R TKA H&P RTKA Prolonged Reason for Visit Osteoarthritis of ri ght knee Osteoarthritis of right knee Osteoarthritis of right knee Chief Complaint M25.552 - Pain in le ft hip M25.561 - Pain in right NEW RT KNEE AND LT HIP PAIN NX OP SP RT KNEE PAIN M81.0 Z79.899 M17.11 Knee Pain M17.11 - Unilateral primary osteoarthritis, right Preop R TKA H&P RTKA Prolonged Knee Pain Knee Pain Knee Pain Reason for Visit Osteoarthritis of ri ght knee Osteoarthritis of right knee Osteoarthritis of right knee Hypertension Impaired mobility and activities of daily living Osteoarthritis of right knee Postoperative pain Status post total right knee replacement Chief Complaint M25.552 - Pain in le ft hip M25.561 - Pain in right NEW RT KNEE AND LT HIP PAIN NX OP SP RT KNEE PAIN M81.0 Z79.899 M17.11 Knee Pain M17.11 - Unilateral primary osteoarthritis, right Preop R TKA H&P RTKA Prolonged Knee Pain Knee Pain Knee Pain [facility] PT 2 WK POST OP RTKA Reason for Visit Osteoarthritis of ri ght knee Osteoarthritis of right knee Osteoarthritis of right knee Hypertension Impaired mobility and activities of daily living Osteoarthritis of right knee Postoperative pain Status post total right knee replacement Aftercare following right knee joint replacement surgery Status post total right knee replacement Chief Complaint OP SP RT KNEE PAIN M81.0 Z79.899 M17.11 Knee Pain M17.11 - Unilateral primary osteoarthritis, right Preop R TKA H&P RTKA Prolonged Knee Pain Knee Pain Knee Pain [facility] PT 2 WK POST OP RTKA Reason for Visit Osteoarthritis of ri ght knee Osteoarthritis of right knee Hypertension Impaired mobility and activities of daily living Osteoarthritis of right knee Postoperative pain Status post total right knee replacement Aftercare following right knee joint replacement surgery Status post total right knee replacement Chief Complaint OP SP RT KNEE PAIN M81.0 Z79.899 M17.11 Knee Pain M17.11 - Unilateral primary osteoarthritis, right Preop R TKA H&P RTKA Prolonged Knee Pain Knee Pain Knee Pain [facility] PT 2 WK POST OP RTKA 4 WK RECHECK RTKA Z47.1 - Aftercare following joint replacement surg Reason for Visit Osteoarthritis of ri ght knee Osteoarthritis of right knee Hypertension Impaired mobility and activities of daily living Osteoarthritis of right knee Postoperative pain Status post total right knee replacement Aftercare following right knee joint replacement surgery Status post total right knee replacement Aftercare following right knee joint replacement surgery Status post total right knee replacement Chief Complaint Knee Pain M17.11 - Unilateral primary osteoarthritis, right Preop R TKA H&P RTKA Prolonged Knee Pain Knee Pain Knee Pain [facility] PT 2 WK POST OP RTKA 4 WK RECHECK RTKA Z47.1 - Aftercare following joint replacement surg Reason for Visit Osteoarthritis of ri ght knee Hypertension Impaired mobility and activities of daily living Osteoarthritis of right knee Postoperative pain Status post total right knee replacement Aftercare following right knee joint replacement surgery Status post total right knee replacement Aftercare following right knee joint replacement surgery Status post total right knee replacement Chief Complaint Knee Pain Knee Pain Knee Pain [facility] PT 2 WK POST OP RTKA 4 WK RECHECK RTKA Z47.1 - Aftercare following joint replacement surg 6 WEEKS Z47.1 - Aftercare following joint replacement surg Reason for Visit Hypertension Impaired mobility and activities of daily living Osteoarthritis of right knee Postoperative pain Status post total right knee replacement Aftercare following right knee joint replacement surgery Status post total right knee replacement Aftercare following right knee joint replacement surgery Status post total right knee replacement Aftercare following right knee joint replacement surgery Additional Source Comments INFORMATION SOURCE (unrecogn ized section and content) DATE CREATED AUTHOR 07/31/2017 [facility] DATE CREATED AUTHOR AUTHOR'S ORGANIZ ATION 09/29/2019 [facility] DATE CREATED AUTHOR AUTHOR'S ORGANIZ ATION 11/15/2019 [facility] DATE CREATED AUTHOR AUTHOR'S ORGANIZ ATION 04/27/2021 [facility] DATE CREATED AUTHOR AUTHOR'S ORGANIZ ATION 06/04/2022 [facility] DATE CREATED AUTHOR AUTHOR'S ORGANIZ ATION 06/17/2022 [facility] DATE CREATED AUTHOR AUTHOR'S ORGANIZ ATION 11/27/2023 [facility] DATE CREATED AUTHOR AUTHOR'S ORGANIZ ATION 12/04/2023 [facility] EPIC Care Teams (unrecognized sec tion and content) Team Status: Active Member Role Status Dates Shaw Francois II MD Primary Care Provider Active Team Status: Active Member Role Status Dates Shaw Francois II MD Primary Care Provider Active Start: September 01, 2023 Jeevan Sanchez II, MD Attending Deon moses, Other Provider Active Start: September 01, 2023 Team Status: Inactive Member Role Status Dates Shaw Francois II MD Primary Care Provider Active Start: September 01, 2023 End: September 02, 2023 Jeevan Sanchez II, MD Attending Provider Active Start: September 01, 2023 End: September 02, 2023 Nancy Chaparro RN Other Provider Active Star t: September 01, 2023 End: September 02, 2023 Samantha Anderson , DEBI Other Provider Active Start : September 01, 2023 End: September 02, 2023 Naila Orona RN Other Provider Active Star t: September 01, 2023 End: September 02, 2023 Ada Farfan , DEBI Other Provider Active Start: Marshal lane 2023 End: September 02, 2023 Huyen Velasco , DEBI Other Provider Active Start: Edie berg 2023 End: September 02, 2023 Daryn Rowland MD Other Provider Active Start: September 01, 2023 End: September 02, 2023 Amy Zacarias DO Other Provider Active Start : September 01, 2023 End: September 02, 2023 Rufino Valdovinos MD Other Provider Active Start : September 01, 2023 End: September 02, 2023 Trevor Bloom DO Other Provider Active Start: September 01, 2023 End: September 02, 2023 Edmund Palencia MD Other Provider Active Start: September 01, 2023 End: September 02, 2023 Moriah Torre MD Other Provider Active Start : September 01, 2023 End: September 02, 2023 Donovan Jordan MD Other Provider Active Start: J [email or web address] End: September 02, 2023 Halle Salmeron APRN Other Provider Active Start: September 01, 2023 End: September 02, 2023 Gm Manning MD Other Provider Active Start: September 01, 2023 End: September 02, 2023 Fabricio Gagnon MD Other Provider Active Start: 2023 End: September 02, 2023 Makenna Terrazas MD Other Provider Active Start: September 01, 2023 End: September 02, 2023 Gunnar Barone MD Other Provider Active Start: September 01, 2023 End: September 02, 2023 Toy Prince DO Other Provider Active Start: September 01, 2023 End: September 02, 2023 Jeremi Gaytan MD Other Provider Active Start: ly 2023 End: September 02, 2023 Prakash Bañuelos MD Other Provider Active Start: Aug End: September 02, 2023 Yasmin Lyons NP-Michelle Other Provider Active St art: September 01, 2023 End: September 02, 2023 Angelica Granger APRN Other Provider Active Star t: September 01, 2023 End: September 02, 2023 Saulo Vee MD Other Provider Active Start: September 01, 2023 End: September 02, 2023 Mian Fuller MD Other Provider Active Start: Ju ly 2023 End: September 02, 2023 Ashok Lozada MD Other Provider Active Start: Aug End: September 02, 2023 Anastasiia Cortez MD Other Provider Active Star t: September 01, 2023 End: September 02, 2023 Maik Quinteros MD Other Provider Active Start: Marshal lane 2023 End: September 02, 2023 Lesli Garcia DO Other Provider Active Start: Edie berg 2023 End: September 02, 2023 Ferdinand Osorio , Other Provider Active Start : September 01, 2023 End: September 02, 2023 Carlota Paige APRN Other Provider Active Start: September 01, 2023 End: September 02, 2023 Klaus Hennessy DO Other Provider Active Start: September 01, 2023 End: September 02, 2023 Jamie Sexton MD Other Provider Active Sta rt: September 01, 2023 End: September 02, 2023 Kim Boyd APRN Other Provider Active Start : September 01, 2023 End: September 02, 2023 Sera Benjamin APRN Other Provider Active St art: September 01, 2023 End: September 02, 2023 Polina Price MD Other Provider Active Start: Marshal 2023 End: September 02, 2023 Shaw Coronado MD Other Provider Active S tart: September 01, 2023 End: September 02, 2023 Yovani Quintana DO Other Provider Active Star t: September 01, 2023 End: September 02, 2023 Mayda Disla DO Other Provider Active Start: September 01, 2023 End: September 02, 2023 Bonilla Lozada MD Other Provider Active Start: September 01, 2023 End: September 02, 2023 Vargas Ambriz MD Other Provider Active Start: September 01, 2023 End: September 02, 2023 Allison Tejada APRN Other Provider Active Star t: September 01, 2023 End: September 02, 2023 Merrick Cheng MD Other Provider Active Start: Marshal lane 2023 End: September 02, 2023 Neeraj Pham MD Other Provider Active Start: Edie berg 2023 End: September 02, 2023 Sofía Thornton RN Other Provider Active Start: Marshal lane 2023 End: September 02, 2023 Vinnie Yin MD Other Provider Active Start: J 2023 End: September 02, 2023 Team Status: Active Member Role Status Dates Shaw Francois II MD Primary Care Provider Active Start: September 02, 2023 Jeevan Sanchez II, MD Other Provider Active S tart: September 02, 2023 Nancy Chaparro , DEBI Other Provider Active Star t: September 02, 2023 Samantha Anderson , DEBI Other Provider Active Start : September 02, 2023 Naila Orona , DEBI Other Provider Active Star t: September 02, 2023 Ada Farfan , DEBI Other Provider Active Start: J 2023 Huyen Velasco , DEBI Other Provider Active Start: ly 2023 Daryn Rowland MD Other Provider Active Start: September 02, 2023 Amy Zacarias DO Other Provider Active Start : September 02, 2023 Rufino Valdovinos MD Other Provider Active Start : September 02, 2023 Trevor Bloom DO Other Provider Active Start: September 02, 2023 Edmund Palencia MD Other Provider Active Start: September 02, 2023 Moriah Torre MD Other Provider Active Start : September 02, 2023 Donovan Jordan MD Other Provider Active Start: 2023 Halle Salmeron APRN Other Provider Active Start: September 02, 2023 Gm Manning MD Other Provider Active Start: September 02, 2023 Fabricio Gagnon MD Other Provider Active Start: 2023 Makenna Terrazas MD Other Provider Active Start: September 02, 2023 Gunnar Barone MD Other Provider Active Start: September 02, 2023 Toy Prince DO Other Provider Active Start: September 02, 2023 Jeremi Gaytan MD Other Provider Active Start: ly 2023 Prakash Bañuelos MD Other Provider Active Start: Aug Yasmin Lyons SNOW TECHNICIAN-C Other Provider Active St art: September 02, 2023 Angelica Granger APRN Other Provider Active Star t: September 02, 2023 Saulo Vee MD Other Provider Active Start: September 02, 2023 Mian Fuller MD Other Provider Active Start: ly 2023 Ashok Lozada MD Other Provider Active Start: Aug Anastasiia Cortez MD Other Provider Active Star t: September 02, 2023 Maik Quinteros MD Other Provider Active Start: J 2023 Lesli Garcia DO Other Provider Active Start: ly 2023 Ferdinand Osorio , Other Provider Active Start : September 02, 2023 Carlota Paige APRN Other Provider Active Start: September 02, 2023 Klaus Hennessy , Other Provider Active Start: September 02, 2023 Jamie Sexton MD Other Provider Active Sta rt: September 02, 2023 Kim Boyd APRN Other Provider Active Start : September 02, 2023 Sera Benjamin APRN Other Provider Active St art: September 02, 2023 Polina Price MD Other Provider Active Start: J 2023 Shaw Coronado MD Other Provider Active S tart: September 02, 2023 Yovani Quintana , Other Provider Active Star t: September 02, 2023 Mayda Disla DO Other Provider Active Start: September 02, 2023 Bonilla Lozada MD Other Provider Active Start: September 02, 2023 Vargas Ambriz MD Other Provider Active Start: September 01 Allison Tejada APRN Other Provider Active Star t: September 02, 2023 Merrick Cheng MD Other Provider Active Start: J 2023 Neeraj Pham MD Other Provider Active Start: ly 2023 Sofía Thornton RN Other Provider Active Start: J 2023 Vinnie Yin MD Attending Provider, Other Provider Active Start: September 02, 2023 Team Status: Inactive Member Role Status Dates Shaw Francois II MD Primary Care Provider Active Start: September 18, 2023 End: September 18, 2023 Frannie Díaz NP-C Attending Provider Active Start: September 18, 2023 End: September 18, 2023 Team Status: Inactive Member Role Status Dates Shaw Francois II MD Primary Care Provider Active Start: October 15, 2023 End: October 15, 2023 Jeevan Sanchez II, MD Attending Provider Active Start: October 15, 2023 End: October 15, 2023 Team Status: Inactive Member Role Status Pauline Francois II MD Primary Care Provider Active Start: November 25, 2023 End: November 25, 2023 Jeevan Sanchez II, MD Attending Provider Active Start: November 25, 2023 End: November 25, 2023 Team Status: Active Member Role Status Pauline Francois II MD Primary Care Provider Active Start: November 25, 2023 Jeevan Sanchez II, MD Attending Provider Active Start: November 25, 2023 Team Status: Inactive Member Role Status Pauline Francois II MD Primary Care Provider Active Start: June 26, 2023 End: June 26, 2023 Jeevan Sanchez II, MD Attending Provider Active Start: June 26, 2023 End: June 26, 2023 Team Status: Inactive Member Role Status Pauline Francois II MD Primary Care Provider Active Naya Weber DO Attending Provider Active Stunt Man Relationship Specialty Start Date End Date Shaw Francois II [address] [facility] [address] [place] [address] PCP - General Internal Medicine 01/15/16 Stunt Man Relationship Specialty Start Date End Date Shaw Francois II [address] [facility] [address] [place] [address] PCP - General Internal Medicine 01/15/16 Team Status: Inactive Member Role Status Pauline Francois II MD Primary Care Provider Active Start: July 17, 2023 End: July 17, 2023 Jeevan Sanchez II, MD Attending Provider Active Start: July 17, 2023 End: July 17, 2023 Team Status: Inactive Member Role Status Pauline Francois II MD Primary Care Provider Active Start: August 18, 2023 End: August 18, 2023 Jeevan Sanchez II, MD Attending Provider Active Start: August 18, 2023 End: August 18, 2023 Team Status: Active Member Role Status Pauline Francois II MD Primary Care Provider Active Start: August 21, 2023 Jeevan Sanchez II, MD Attending Provider Active Start: August 21, 2023 Team Status: Inactive Member Role Status Dates Shaw Francois II MD Primary Care Provider Active Start: August 21, 2023 End: August 21, 2023 Jeevan Sanchez II, MD Attending Provider Active Start: August 21, 2023 End: August 21, 2023 Team Status: Inactive Member Role Status Dates Shaw Francois II MD Primary Care Provider Active Start: August 22, 2023 End: August 22, 2023 Jeevan Sanchez II, MD Attending Provider Active Start: August 22, 2023 End: August 22, 2023 Team Status: Active Member Role Status Dates Shaw Francois II MD Primary Care Provider Active Start: October 15, 2023 Jeevan Sanchez II, MD Attending Provider Active Start: October 15, 2023 Stunt Man Relationship Specialty Start Date End Date Shaw Francois MD [address] [place] [address] PCP - General Internal Medicine 07/23/22 Shaw Francois MD [address] [place] [address] PCP Areli Malik MA 02/10/23 Stunt Man Relationship Specialty Start Date End Date Shaw Francois MD [address] [place] [address] PCP - General Internal Medicine 07/23/22 Shaw Francois MD [address] [place] [address] PCP Areli Malik MA 02/10/23 Stunt Man Relationship Specialty Start Date End Date Shaw Francois MD [address] [place] [address] PCP - General Internal Medicine 07/23/22 Shaw Francois MD [address] [place] [address] PCP - Helena PETERS 02/10/23 Stunt Man Relationship Specialty Start Date End Date Shaw Francois MD [address] [place] [address] PCP - General Internal Medicine 07/23/22 Shaw Francois MD [address] [place] [address] PCP Areli Malik MA 02/10/23 Stunt Man Relationship Specialty Start Date End Date Shaw Francois MD [address] [place] [address] PCP - General Internal Medicine 07/23/22 Shaw Francois MD [address] [place] [address] PCP Areli Malik MA 02/10/23 Stunt Man Relationship Specialty Start Date End Date Shaw Francois MD [address] [place] [address] PCP - General Internal Medicine 07/23/22 Shaw Francois MD [address] [place] [address] PCP Areli Malik MA 02/10/23 Goals (unrecognized section and content) Goals may be documented in a n alternate sectionGoals may be documented in an alternate sectionGoals may be documented in an alternate sectionGoals may be documented in an alternate sectionGoals may be documented in an alternate sectionGoals may be documented in an alternate sectionGoals may be documented in an alternate sectionGoals may be documented in an alternate section Source Comments (unrecognize d section and content) In the event this informatio n is protected by the Federal Confidentiality of Alcohol and Drug Abuse Patient Records regulations: The Federal rules restrict any use of the information to criminally investigate or prosecute any alcohol or drug abuse patient.[facility] the event this information is protected by the Federal Confidentiality of Alcohol and Drug Abuse Patient Records regulations: The Federal rules restrict any use of the information to criminally investigate or prosecute any alcohol or drug abuse patient.[facility] Reason for Visit (unrecogniz ed section and content) Reason Comments Breast Cancer 6 month follow up Reason Comments Breast Cancer 1 year follow up Specialty Diagnoses / Procedures Referred By Mj mireles Referred To Contact Physical Therapy Diagnoses Pain in right knee Procedures ND PHYSICAL THERAPY EVALUATION LOW COMPLEX 20 MINS Frannie Díaz [address] [place] [address] Jackie Persaud, PT [address] [facility] [address] [place] [address] Referral ID Status Reason Start Date Expiration Date Visits Requested Visits Authorized [id number] Authorized Consult and Treat 11/05/2023 02/02/2024 12 12 Referral ID Status Reason Start Date Expiration Date V isits Requested Visits Authorized [id number] Closed Consult and Treat 11/05/2023 02/02/2024 12 12 FOR RECORDS PERTAINING TO PATIENTS WHO ARE [...] BE BASED ON THE PRIMARY CLINICAL RECORDS. [facility] [employer] [facility]. provides no warranty or guarantee of the accuracy or completeness of information in this document.
[2023-12-25 19:06] VITALS: BP 163/83; BP 163/98; PULSE 72; PULSE 80; TEMP 36.6; TEMP 36.8; O2SAT 91; O2SAT 95; BMI 27.2
--- NOTE | 2023-12-25 19:30 | P.HP_ITS ---
HPI H&P: HPI History of Present Illness Chief complaint: HIP PAIN LT Hip Fracture Narrative: Patient presented to the emergency room with left hip pain. Patient had a fall at home. Denies syncope. Denies chest pain or shortness of breath just a fall. Had instant pain. Has some back pain as well. In ER workup showed left femoral neck fracture, no changes on LS-spine x-rays. When I saw patient in the emergency room, she was resting fairly uncomfortably in bed. She had just been medicated with pain medications. Denies any other complaints, no chest pain no shortness of breath no fever chills no UTI symptoms no URI symptoms Opioid HPI Opioid Management Most Recent Pain and Opioid Data: Last Pain Scale 10 12/25/23 15:50 12/25/23 Last APR Pain Assessment 12/25/23 15:50 Review of Systems ROS Status of ROS 10 or more systems reviewed and unremark able except as noted in history and below Meds Home Medications and Allergies Allergies Allergy/AdvReac Type Severity Reaction Status Date / Time Sulfa (Sulfonamide Allergy Intermediate Hives Verified 12/25/23 15:41 Antibiotics) Exam Constitutional Vital Signs, click to edit/add: Last Vital Signs Temp 98.2 F 12/25/23 19:06 Pulse 72 12/25/23 19:06 Resp 20 12/25/23 19:06 BP 163/83 H 12/25/23 19:06 Pulse Ox 91 L 12/25/23 19:06 O2 Del Method Nasal Cannula 12/25/23 19:06 O2 Flow Rate 2 12/25/23 19:06 Documenting provider has reviewed patient's vital signs: yes Common normals: apparent distress Respiratory Common normals: normal respiratory effort and no retractions Cardio Common normals: regular rate and regular rhythm GI Common normals: Normal to inspection, nondistended, normoactive bowel sounds present, soft to palpation and non-tender Extremity Common normals: normal to inspection (Pain on palpation left hip) Results Labs Labs: Short CBC 12/25/23 Range/Units 17:37 WBC 14.1 H (4.0-11.0) 10^3/uL Hgb 13.6 (12.0-16.0) g/dL Hct 38.5 (36.0-48.0) % Plt Count 201 (150-450) 10^3/uL BMP 12/25/23 17:37 Sodium 144 Potassium 3.7 Chloride 106 Carbon Dioxide 26.8 BUN 19.0 H Creatinine 0.94 Glucose 134 H Calcium 9.7 Assessment and Plan Assessment and Plan (1) Closed hip fracture: Plan Admission findings: Uncontrolled hypertension secondary to pain secondary to left femoral neck fracture. Case discussed with orthopedics and will take patient to the operating room tomorrow. Patient denies any acute infection type symptoms.-Cleared for OR Leukocytosis - check urinalysis, possible just demargination. GERD-patient complains of intermittent heartburn type symptoms. Nothing active. Admission status: Patient will be placed in inpatient status as medically necessary treatment will span 2 midnights for repair and rehabilitation of her hip fracture. Urinary Catheter Management Urinary Catheter Management Urethral: Cath placed during this visit: yes Urethral indwelling: Yes Reason for continuing: measure accurate output Insertion date: 12/25/23 Insertion time: 19:07
[2023-12-25 19:56] VITALS: O2SAT 99
[2023-12-25 20:00] VITALS: PULSE 80
[2023-12-25] MEDS: HYDROMORPHONE HCL 1 MG/ML CARTRIDGE IVP (20:30)
[2023-12-25 20:45] VITALS: BP 155/78; PULSE 80; TEMP 36.6; O2SAT 95
[2023-12-25] MEDS: LACTATED RINGER'S SOLUTION 1,000 ML 50 ML IV (21:29)
[2023-12-26] VITALS (56 sets, daily range): BP systolic 103–127; BP diastolic 42–75; PULSE 18–87; TEMP 36.1–37.7; O2SAT 77–100
[2023-12-26 01:27] LABS: Bilirubin Urine NEGATIVE (NEGATIVE); Blood Urine TRACE-I (NEGATIVE); Color Urine YELLOW (YELLOW); Glucose Urine UA NEGATIVE (NEGATIVE); Ketones Urine TRACE mg/dL (NEGATIVE); Leukocyte Esterase Urine NEGATIVE (NEGATIVE); Nitrite Urine POSITIVE (NEGATIVE); Protein Urine NEGATIVE (NEG/TRACE); Urobilinogen Urine 0.2 EU/dL (0.2-1.0); pH Urine 6.5 (5.0-9.0)
[2023-12-26 01:28] LABS: Clarity Urine CLOUDY (CLEAR)
[2023-12-26 01:39] LABS: Bacteria Urine LARGE #/HPF (NONE SEEN); Cast Seen? SEEN #/LPF (NONE SEEN); Crystals Seen? None Seen #/HPF (None Seen); Hyaline Casts Urine FEW; Mucus Urine MODERATE (NONE SEEN); RBC Urine 0-2 #/HPF (0-2); Squamous Epithelial Cell Urine FEW #/LPF (NONE/RARE); Urine Culture Indicated ALREADY ORDERED
[2023-12-26] MEDS: HYDROMORPHONE HCL 1 MG/ML CARTRIDGE IVP ×2 (04:30)
--- NOTE | 2023-12-26 05:49 | P.PN_ITS ---
Progress Note: Subjective Subjective Interval history: No complaints this morning. States pain is fairly well-controlled. Exam Constitutional Vital Signs, click to edit/add: Last Vital Signs Temp 99.0 F 12/26/23 04:00 Pulse 77 12/26/23 04:00 Resp 18 12/26/23 04:00 BP 124/68 12/26/23 04:00 Pulse Ox 77 L 12/26/23 04:00 O2 Del Method Nasal Cannula 12/26/23 04:00 O2 Flow Rate 2 12/26/23 00:00 Documenting provider has reviewed patient's vital signs: yes Common normals: no apparent distress Respiratory Common normals: normal respiratory effort and no retractions Cardio Common normals: regular rate and regular rhythm GI Common normals: Normal to inspection, nondistended, normoactive bowel sounds present, soft to palpation and non-tender Extremity Common normals: normal to inspection (Pain on palpation left hip) Progress Note: Objective Labs Labs: Short CBC 12/25/23 Range/Units 17:37 WBC 14.1 H (4.0-11.0) 10^3/uL Hgb 13.6 (12.0-16.0) g/dL Hct 38.5 (36.0-48.0) % Plt Count 201 (150-450) 10^3/uL BMP 12/25/23 17:37 Sodium 144 Potassium 3.7 Chloride 106 Carbon Dioxide 26.8 BUN 19.0 H Creatinine 0.94 Glucose 134 H Calcium 9.7 Urine 12/26/23 Range/Units 01:17 Urine Color Yellow (YELLOW) Urine Clarity Cloudy A (CLEAR) Urine pH 6.5 (5.0-9.0) Ur Specific [place] 1.020 (1.005-1.025) Urine Protein Negative (NEG/TRACE) mg/dL Urine Glucose (UA) Negative (NEGATIVE) mg/dL Progress Note: A&P Assessment and Plan (1) Closed hip fracture: Plan Admission findings: Uncontrolled hypertension secondary to pain secondary to left femoral neck fracture. Case discussed with orthopedics and will take patient to the operating room tomorrow. Patient denies any acute infection type symptoms.-Cleared for OR Acute UTI with leukocytosis-leukocytosis is improved, starting antibiotics this morning. GERD-patient complains of intermittent heartburn type symptoms. Nothing active. Admission status: Patient will be placed in inpatient status as medically necessary treatment will span 2 midnights for repair and rehabilitation of her hip fracture. Hypothyroidism-continue with home medications Hypertension by history-continue with home medications Depression-continue with home medications Admission status: Patient admitted through the emergency room with hip fracture- medically necessary treatment will span 2 midnights. Inpatient status. Urinary Catheter Management Urinary Catheter Management Urethral: Cath placed during this visit: yes Urethral indwelling: Yes Reason for continuing: surgical procedure Insertion date: 12/25/23 Insertion time: 19:07
[2023-12-26 05:54] LABS: Basophils Percent Auto 0.3 % (0.2-2.0); Eosinophils Absolute Auto 0.2 10^3/uL (0.0-0.7); Eosinophils Percent Auto 1.9 % (0.9-7.0); Hematocrit 36.9 % (36.0-48.0); Hemoglobin 12.5 g/dL (12.0-16.0); Immature Granulocytes Abs Auto 0.05 10^3/uL (0.00-0.03); Immature Granulocytes Pct Auto 0.5 % (0.0-0.5); Lymphocytes Absolute Auto 1.8 10^3/uL (1.2-3.8); Lymphocytes Percent Auto 18.4 % (20.5-60.0); Mean Corpuscular HGB Conc 33.9 g/dL (29.9-35.2); Mean Corpuscular Hemoglobin 30.3 pg (26.7-34.0); Mean Corpuscular Volume 89.3 fL (81.0-99.0); Monocytes Absolute Auto 0.7 10^3/uL (0.3-0.8); Monocytes Percent Auto 6.8 % (1.7-12.0); Neutrophils Absolute Auto 7.2 10^3/uL (1.4-6.5); Neutrophils Percent Auto 72.1 % (43.0-75.0); Platelet Count 175 10^3/uL (150-450); Red Blood Count 4.13 10^6/uL (4.20-5.40); Red Cell Distribution Width 12.3 % (11.0-15.0)
[2023-12-26 06:02] LABS: Anion Gap 12.1; Calcium 8.9 mg/dL (8.5-10.1); Carbon Dioxide 27.7 mmol/L (21.0-32.0); Chloride 106 mmol/L (98-107); Estimated GFR (African America >60 (>=60 mL/min/1.73m^2); Estimated GFR (Non-African Ame >60 (>=60 mL/min/1.73m^2); Glucose 108 mg/dL (74-106); Potassium 3.8 mmol/L (3.5-5.1); Sodium 142 mmol/L (136-145)
[2023-12-26] MEDS: HYDROMORPHONE HCL 1 MG/ML CARTRIDGE 0.5 MG IVP (06:22)
[2023-12-26] MEDS: CEFTRIAXONE 1,000 MG in 0.9 % SODIUM CHLORIDE 50 ML 100 MG IV (06:23)
--- NOTE | 2023-12-26 08:26 | CM.NOTE ---
Rounds made with Dr. Lambert, pt will go to OR today for hip fx. PT will evaluate pt after OR. Pt requesting list for skilled facilities for post-op.
--- NOTE | 2023-12-26 08:53 | SWNOTE1 ---
SW spoke to case management and pt would like [facility] as first choice and [facility] as second. SW reached out to [facility] and they are not in network with [employer]. SW called Yara at [facility]. Waiting to hear back.
--- NOTE | 2023-12-26 08:55 | CM.NOTE ---
Discussed discharge planning with pt and possible need for skilled therapy at discharge. Pt was given [employer] 5 star rating list, she would like [facility] as 1st choice then [facility] as 2nd choice.
--- NOTE | 2023-12-26 09:02 | SWNOTE1 ---
[facility] does have openings and takes her insurance. They will review and let MYLES know. Referral sent to [facility]. Referral included face sheet, ED note, H&P, provider notes, case management report, surgery note, nursing notes, diagnostic imaging, med list. SW to send P/OT once completed.
[2023-12-26] MEDS: HYDROMORPHONE HCL 0.5 MG/0.5 ML SYRINGE IVP ×3 (09:24→22:23)
[2023-12-26 10:52] LABS: Alanine Aminotransferase 16 U/L (14-59); Albumin Globulin Ratio 1.1; Albumin Level 3.2 g/dL (3.4-5.0); Alkaline Phosphatase 57 U/L (46-116); Aspartate Amino Transferase 15 U/L (15-37); Bilirubin Direct 0.2 mg/dL (0.0-0.2); Bilirubin Total 0.8 mg/dL (0.2-1.0); Globulin 2.9 g/dL; Total Protein 6.1 g/dL (6.4-8.2)
[2023-12-26 11:11] LABS: Lactate/Lactic Acid 0.9 mmol/L (0.4-2.0)
--- NOTE | 2023-12-26 11:29 | CM.NOTE ---
Important Message From Medicare discussed with pt, pt verbalizes understanding and signs paper. Original given to pt and copy placed on pt's chart.
--- NOTE | 2023-12-26 11:50 | CM.NOTE ---
Pt requests SS or Case Management. Case Management in to speak with pt, pt now has friend at bedside and is requesting to go to [facility] for skilled instead of [facility]. Pt's friend is a retired nurse and feels pt would benefit more at [facility]. Pt is in agreement with this choice. SS will notify [facility] and then call [facility] for bed availability.
[2023-12-26] MEDS: LACTATED RINGER'S SOLUTION 1,000 ML 50 ML IV ×3 (11:54→17:18)
--- NOTE | 2023-12-26 12:13 | SWNOTE1 ---
[facility] did accept and would have started precert once they had PT/OT, but pt spoke with family and she let case management know that she would now like [facility]. Referral sent to__. Referral included face sheet, ED note, H&P, provider notes, case management report, wound consult, nursing notes, diagnostic imaging, med list, and PT/OT notes.
--- NOTE | 2023-12-26 12:14 | SWNOTE1 ---
[facility] was able to accept and would have started precert, but pt spoke with family and she would now like [facility]. SW updated nurse and cancelled the referral to [facility]. Referral sent to [facility]. Referral included face sheet, ED note, H&P, provider notes, case management report, nursing notes, labs, vitals, diagnostic imaging, and med list. SW to send PT/OT once completed after surgery.
--- NOTE | 2023-12-26 12:25 | SWNOTE1 ---
[facility] is able to accept and will start precert once they have PT/OT.
[2023-12-26] MEDS: ONDANSETRON PF 4 MG/2 ML VIAL IV ×2 (13:20→22:23)
--- NOTE | 2023-12-26 13:30 | SUR.HOLD ---
Pt transported from [place] to [facility] in bed. Pt stated that she is not normally on oxygen. Pt on oxygen for pain medication. Erika RN came to holding state that her O2 sat is
--- NOTE | 2023-12-26 13:34 | PC.NURSE ---
83%. oxygen applied . O2 sat is 91%. O2 sat dips down to 88%. Dr Rios notified.
--- NOTE | 2023-12-26 13:48 | PM.ORCN ---
History of Present Illness HPI Consult date: 12/26/23 Consult reason: fracture Chief complaint: HIP PAIN LT Hip Fracture Narrative: Reports she was up on a low step yesterday she went to step down her left knee which has been giving her problems gave out on her she fell onto her left side with left hip pain and left wrist pain. She presented to [facility] emergency room where x-rays revealed a left hip femoral neck fracture. Patient has been admitted for operative treatment of her injury. She reports also having some left wrist pain since the fall. He is a community ambulator. She has been using an assistive device since having her right knee replaced this summer. PFS PFS Social History Highest level of school completed/degree received: high school graduate Meds Home Medications and Allergies Home Medications ?Medication ?Instructions ?Recorded ?Confirmed ?Type levothyroxine 125 mcg tablet 125 mcg PO .ACB 12/26/23 12/26/23 History losartan 25 mg tablet 25 mg PO QAM 12/26/23 12/26/23 History sertraline 100 mg tablet 50 mg PO .QD 12/26/23 12/26/23 History Allergies Allergy/AdvReac Type Severity Reaction Status Date / Time Sulfa (Sulfonamide Allergy Intermediate Hives Verified 12/25/23 15:41 Antibiotics) Exam Narrative Exam Narrative: On exam today her left wrist is mildly swollen. Distal radius is tender. No gross deformity. Grossly neurovascularly intact. Left leg is shortened and rotated. Pain with any motion to the left hip. She has a palpable dorsalis pedis pulse and is able to wiggle her toes. Sensation is intact to light touch. No knee or ankle tenderness. Right lower extremity is nontender to palpation. Bilateral shoulders and bilateral elbows have no pain with range of motion. Right wrist does not have pain with range of motion. Constitutional Vital Signs, click to edit/add: Last Vital Signs Temp 98.4 F 12/26/23 11:50 Pulse 75 12/26/23 11:50 Resp 20 12/26/23 11:50 BP 116/62 12/26/23 11:50 Pulse Ox 97 12/26/23 12:00 O2 Del Method Nasal Cannula 12/26/23 11:50 O2 Flow Rate 1.5 12/26/23 11:50 Results Labs Labs: Abnormal lab results 12/25/23 12/26/23 12/26/23 Range/Units 17:37 01:17 05:31 WBC 14.1 H (4.0-11.0) 10^3/uL RBC 4.13 L (4.20-5.40) 10^6/uL MCHC 35.3 H (29.9-35.2) g/dL MPV 8.9 L 9.0 L (9.5-13.5) fL Neut % (Auto) 85.5 H (43.0-75.0) % Lymph % (Auto) 9.5 L 18.4 L (20.5-60.0) % Eos % (Auto) 0.1 L (0.9-7.0) % Neut # (Auto) 12.0 H 7.2 H (1.4-6.5) 10^3/uL Abs Immat Gran (auto) 0.09 H 0.05 H (0.00-0.03) 10^3/uL Imm/Tot Granulo (auto) 0.6 H (0.0-0.5) % BUN 19.0 H (7.0-18.0) mg/dL Est GFR (Non-Af Amer) 57 L (>=60 mL/min/1.73m^2) Glucose 134 H 108 H (74-106) mg/dL Total Protein (6.4-8.2) g/dL Albumin (3.4-5.0) g/dL Urine Clarity Cloudy A (CLEAR) Urine Ketones Trace A (NEGATIVE) mg/dL Urine Nitrite Positive A (NEGATIVE) Urine WBC 2-5 A (NONE SEEN) #/HPF Ur Squamous Epith Cells Few A (NONE/RARE) #/LPF Urine Bacteria Large A (NONE SEEN) #/HPF Urine Casts Seen A (NONE SEEN) #/LPF Urine Mucus Moderate A (NONE SEEN) 12/26/23 Range/Units 09:15 WBC (4.0-11.0) 10^3/uL RBC (4.20-5.40) 10^6/uL MCHC (29.9-35.2) g/dL MPV (9.5-13.5) fL Neut % (Auto) (43.0-75.0) % Lymph % (Auto) (20.5-60.0) % Eos % (Auto) (0.9-7.0) % Neut # (Auto) (1.4-6.5) 10^3/uL Abs Immat Gran (auto) (0.00-0.03) 10^3/uL Imm/Tot Granulo (auto) (0.0-0.5) % BUN (7.0-18.0) mg/dL Est GFR (Non-Af Amer) (>=60 mL/min/1.73m^2) Glucose (74-106) mg/dL Total Protein 6.1 L (6.4-8.2) g/dL Albumin 3.2 L (3.4-5.0) g/dL Urine Clarity (CLEAR) Urine Ketones (NEGATIVE) mg/dL Urine Nitrite (NEGATIVE) Urine WBC (NONE SEEN) #/HPF Ur Squamous Epith Cells (NONE/RARE) #/LPF Urine Bacteria (NONE SEEN) #/HPF Urine Casts (NONE SEEN) #/LPF Urine Mucus (NONE SEEN) H & H 12/25/23 12/26/23 Range/Units 17:37 05:31 Hgb 13.6 12.5 (12.0-16.0) g/dL Hct 38.5 36.9 (36.0-48.0) % Coagulation 12/25/23 Range/Units 17:37 INR 1.07 All other labs normal. Diagnostic results Hip x-ray: image reviewed (X-rays of her left hip show a displaced femoral neck fracture) Assessment and Plan Assessment and Plan (1) Closed hip fracture: Plan For left hip fracture I have recommended a left hip hemiarthroplasty. I have discussed the procedure and recovery as well as risks with the patient and her 2 sons. We have discussed risk of infection, chronic pain, need for additional surgery, loss of life as well as additional risks and the informed consent process. We have discussed additional risks and the benefits and the informed consent process which the the understand and have elected to proceed with.
[2023-12-26] MEDS: CEFAZOLIN SODIUM/DEXTROSE,ISO 2 GM/50 ML PIGGYBACK IV (13:53)
--- NOTE | 2023-12-26 13:56 | XR_ITS ---
The [address] [address] Patient Name: ASHLYN CHIN MRN: [id number] date: 1945 Sex: F Assigned Patient Location: MS Current Patient Location: [place] Accession/Order Number: [id number] Exam Date: 12/26/2023 16:25 Report Date: 12/26/2023 18:16 At the request of: CAROLINE ENCISO Procedure: XR hip LT min 2V EXAM: XR hip LT min 2V HISTORY: The patient is an 78-year-old female, xray in recovery room s/p left hip hemiarthroplast COMPARISON: 12/25/2023. XR/XR hip LT min 2V IMPRESSION: There is now a right hip bipolar hemiprosthesis in relative anatomic alignment with no evidence of surgical complication. Electronically authenticated by: SURJIT MAZARIEGOS Date: 12/26/2023 18:16
--- NOTE | 2023-12-26 13:57 | XR_ITS ---
The [address] [address] Patient Name: ASHLYN CHIN MRN: [id number] date: 1945 Sex: F Assigned Patient Location: MS Current Patient Location: MS Accession/Order Number: [id number] Exam Date: 12/26/2023 16:25 Report Date: 12/26/2023 17:40 At the request of: CAROLINE ENCISO Procedure: XR wrist LT min 3V EXAM: XR wrist LT min 3V HISTORY: xray in RR, fall with left wrist pain COMPARISON: None. TECHNIQUE: 3 views of the left wrist were obtained. FINDINGS: There is no apparent acute fracture or dislocation. Ulnar neutral variance is present. There is prominent narrowing of the joint spaces of the distal scaphoid bone and at the first carpometacarpal joint, accompanied by subchondral sclerotic changes. The remainder the joint spaces are relatively intact. Diffuse osteopenia is noted. Soft tissue swelling is seen diffusely about the wrist. XR/XR wrist LT min 3V IMPRESSION: No apparent acute fracture or dislocation. Degenerative changes are present as described, direct comparison with a previous study would be helpful in confirming the chronicity of these findings. Electronically authenticated by: YAKELIN SHORE Date: 12/26/2023 17:40
--- NOTE | 2023-12-26 14:01 | PM.ORPRC ---
Procedure Note Date of procedure: 12/26/23 Pre-op diagnosis: Left femoral neck fracture Post-op diagnosis: same as pre-op Procedure: Operation: Left hip hemiarthroplasty Detailed description of procedure: After informed consent was obtained the patient brought to the operating room where general LMA was administered. The patient was placed in lateral decubitus position and the left hip was prepped and draped in usual sterile fashion. A 14 cm curvilinear incision was made for posterior approach to the hip. Fascia was incised in line with the incision. Short external rotators were incised off the greater trochanter and tagged for later repair. Capsule was next incised. Revision osteotomy was performed using a osteotomy cutting guide and a sagittal saw. Femoral head was removed and sized to 45 mm. The Jesika/Biomet echo fracture system was utilized for this hemiarthroplasty. Attention was next turned to preparation of the femoral canal. Box osteotome was used followed by canal finder and lateralizing reamer. Sequential broaching was performed to size 11. Various neck lengths were trialed and a 45 mm head was trialed. The 45 mm head worked well as well as a size 9 stem. Trial components were removed. The canal was brushed, irrigated and then dried. Kristin plug was placed. Cement was prepared and pressurized fashion. Cement was then inserted into the femoral canal using thumb pressurization. The 9 echo stem was next placed and held into position till cement hardened. Once the cement had hardened various neck lengths were trialed with a 45 mm Endo head. A +6 neck could be reduced but this resulted in significantly tight hip with loss of extension. Decision was for a +3 mm neck. The final +3 mm neck and 45 mm Endo head were then tamped into position. Hip was reduced and placed through range of motion and found to be stable. Wound was irrigated. Capsule was repaired with #2 FiberWire suture. Short external rotators were repaired through drill holes in the greater trochanter and tied over a bony bridge. Fascia was repaired with a Arthrex suture tape. Skin was closed in standard fashion. Sterile dressing was placed. Prior to this 20 mL 0.5% Marcaine plain combined with 10 mL 1% lidocaine with epi was infiltrated in the wound. Abduction pillow was placed. Patient was awakened and brought to recovery room in stable condition. There were no intraoperative or immediate postoperative complications. Anesthesia: General-LMA Surgeon: Antony Shore Estimated blood loss (mL): 250 Pathology: none sent Condition: stable Disposition: PACU
--- NOTE | 2023-12-26 15:48 | SWNOTE1 ---
MYLSE checked with nursing and pt is still back in OR/PACU. MYLES did talk to Jerica at [facility] and Jose will be working tomorrow from home. Nurse can send PT/OT note to the 177 fax and Jose will be able to start precert. MYLES took packet to med/surge floor and provided fax number for nurse to send therapy notes tomorrow or this evening. Pt is a precert to go to [facility]. [facility] will be able to start precert once PT/OT evals completed, but pt still back in OR/PACU.
[2023-12-26] MEDS: HYDROMORPHONE HCL 0.5 MG/0.5 ML SYRINGE IV ×2 (16:19→16:26)
[2023-12-26] MEDS: ACETAMINOPHEN 500 MG TABLET 1000 MG PO (22:23)
[2023-12-26] MEDS: OXYCODONE HCL/ACETAMINOPHEN 5MG/325MG 1 TAB PO (22:23)
[2023-12-26] MEDS: CALCIUM CARBONATE 500 MG (200MG ELEMENTAL) TAB CHEW 1000 MG PO (22:23)
[2023-12-26] MEDS: HYOSCYAMINE SULFATE 0.125 MG TAB.SUBL SL (22:23)
[2023-12-27] VITALS (13 sets, daily range): BP systolic 98–146; BP diastolic 52–76; PULSE 66–88; TEMP 36.1–37.2; O2SAT 79–99
[2023-12-27 06:11] LABS: Basophils Absolute Auto 0.1 10^3/uL (0.0-0.1); Basophils Percent Auto 0.7 % (0.2-2.0); Eosinophils Absolute Auto 0.3 10^3/uL (0.0-0.7); Eosinophils Percent Auto 3.1 % (0.9-7.0); Hematocrit 29.8 % (36.0-48.0); Hemoglobin 10.1 g/dL (12.0-16.0); Immature Granulocytes Abs Auto 0.04 10^3/uL (0.00-0.03); Immature Granulocytes Pct Auto 0.5 % (0.0-0.5); Lymphocytes Absolute Auto 1.6 10^3/uL (1.2-3.8); Mean Corpuscular HGB Conc 33.9 g/dL (29.9-35.2); Mean Corpuscular Hemoglobin 30.3 pg (26.7-34.0); Mean Corpuscular Volume 89.5 fL (81.0-99.0); Mean Platelet Volume 9.1 fL (9.5-13.5); Monocytes Absolute Auto 0.6 10^3/uL (0.3-0.8); Monocytes Percent Auto 7.5 % (1.7-12.0); Neutrophils Absolute Auto 5.7 10^3/uL (1.4-6.5); Neutrophils Percent Auto 69.2 % (43.0-75.0); Platelet Count 158 10^3/uL (150-450); Red Blood Count 3.33 10^6/uL (4.20-5.40); Red Cell Distribution Width 12.5 % (11.0-15.0); White Blood Count 8.3 10^3/uL (4.0-11.0)
[2023-12-27] MEDS: CEFTRIAXONE 1,000 MG in 0.9 % SODIUM CHLORIDE 50 ML 100 MG IV (06:11)
--- NOTE | 2023-12-27 08:18 | PM.PN ---
Progress Note: Subjective Subjective Interval history: No complaints this morning. Neyda when trying to get up with Physical therapy but pain is controlled when laying. Exam Narrative Exam Narrative: General: Patient is alert, and oriented to person, place and time with normal affect, proper hygiene Skin: no visible rashes, or ulcers Head: atraumatic, acephalic Eyes: PERRLA, no nystagmus present, conjunctiva clear, no scleral icterus Ears:normal gross auditory acuity Heart: Normal rate and rhythm, no murmurs/rubs/gallops Lungs: no audible wheezes, crackles and normal breath sounds all lung mendes Abdomen: Normal audible bowel sounds, no distension, No palpable masses, no organomegaly, no rebound/guarding/ or rigidity Musculoskeletal: no swelling bilateral lower extremities Neuro: CN II-X grossly intact Constitutional Vital Signs, click to edit/add: Last Vital Signs Temp 98.0 F 12/27/23 08:00 Pulse 76 12/27/23 08:00 Resp 18 12/27/23 08:00 BP 115/71 12/27/23 08:00 Pulse Ox 96 12/27/23 08:10 O2 Del Method Nasal Cannula 12/27/23 08:10 O2 Flow Rate 2 12/27/23 08:10 Progress Note: Objective Labs Labs: Short CBC 12/27/23 Range/Units 06:02 WBC 8.3 (4.0-11.0) 10^3/uL Hgb 10.1 L (12.0-16.0) g/dL Hct 29.8 L (36.0-48.0) % Plt Count 158 (150-450) 10^3/uL Liver Function 12/26/23 Range/Units 09:15 Total Bilirubin 0.8 (0.2-1.0) mg/dL Direct Bilirubin 0.2 (0.0-0.2) mg/dL AST 15 (15-37) U/L ALT 16 (14-59) U/L Alkaline Phosphatase 57 (46-116) U/L Albumin 3.2 L (3.4-5.0) g/dL Progress Note: A&P Assessment and Plan (1) Closed hip fracture: Assessment and Plan: Patient is pod #1 from left hemiarthroplasty, hb stable 10.1. Pain is controlled. continue with pt/ot evals and treat. Patient awaiting skilled rehab. Qualifiers: Encounter type: initial encounter Laterality: left Qualified Code(s): S72.002A - Fracture of unspecified part of neck of left femur, initial encounter for closed fracture (2) Primary hypertension: Assessment and Plan: continue losartan. (3) Hypothyroidism (acquired): Assessment and Plan: continue levothyroxine (4) Depression: Assessment and Plan: continue zoloft Qualifiers: Depression Type: unspecified Qualified Code(s): F32.A - Depression, unspecified Plan Patient is a full code continue lovenox for DVT prophylaxis. Patient with pt/ot evaluation and need for halfway placement. Urinary Catheter Management Urinary Catheter Management Urethral: Cath placed during this visit: yes Urethral indwelling: Yes Reason for continuing: surgical procedure Insertion date: 12/25/23 Insertion time: 19:07
[2023-12-27] MEDS: OXYCODONE HCL/ACETAMINOPHEN 5MG/325MG 1 TAB PO ×3 (09:34→21:42)
--- NOTE | 2023-12-27 12:27 | PM.ORPN ---
Progress Note: A&P Assessment and Plan (1) Closed hip fracture: Plan POD 1 left hip hemiarthroplasty - WBAT - Hgb 10.1 from 12.5 preoperatively, vital stable overnight, afebrile - Pain is controlled - Hip precautions for 6 weeks, abduction pillow when in bed - Ok for discharge to SNF from [facility] - Follow-up with Dr. Shore in 3 weeks Subjective Subjective Principal diagnosis: Left hip hemiarthroplasty Interval history: Patient is postop day #1 status post left hip hemiarthroplasty. Patient states that she has gotten up with physical therapy and stood at the edge of the bed. This was painful but patient laying in bed now and pain is controlled. Patient denies any further issues at this time. Exam Narrative Exam Narrative: On exam patient laying in bed, arouses easily to voice, alert and oriented x 3. Age-appropriate. On inspection of the left leg, thigh is soft and compressible, lateral dressing is clean dry and intact. 5/5 DF/PF, 2+ DP pulse palpated. Sensation intact with light touch distally. Constitutional Vital Signs, click to edit/add: Last Vital Signs Temp 98.0 F 12/27/23 08:00 Pulse 76 12/27/23 08:00 Resp 18 12/27/23 08:00 BP 115/71 12/27/23 08:00 Pulse Ox 96 12/27/23 08:10 O2 Del Method Nasal Cannula 12/27/23 08:10 O2 Flow Rate 2 12/27/23 08:10 Urinary Catheter Management Urinary Catheter Management Urethral: Cath placed during this visit: yes Urethral indwelling: Yes Reason for continuing: pelvic fractures Insertion date: 12/25/23 Insertion time: 19:07
[2023-12-27] MEDS: HYDROMORPHONE HCL 0.5 MG/0.5 ML SYRINGE IVP ×2 (15:49→23:09)
[2023-12-27] MEDS: ENOXAPARIN SODIUM 40 MG/0.4 ML SYRINGE SUBQ (17:13)
[2023-12-28] VITALS (7 sets, daily range): BP systolic 120–164; BP diastolic 66–108; PULSE 74–103; TEMP 36.4–36.9; O2SAT 90–93
[2023-12-28] MEDS: ACETAMINOPHEN 500 MG TABLET 1000 MG PO ×2 (01:00→06:21)
[2023-12-28] MEDS: LEVOTHYROXINE SODIUM 125 MCG TABLET PO (06:20)
[2023-12-28] MEDS: OXYCODONE HCL/ACETAMINOPHEN 5MG/325MG 1 TAB PO (06:21)
[2023-12-28 06:22] LABS: Basophils Percent Auto 0.5 % (0.2-2.0); Eosinophils Absolute Auto 0.3 10^3/uL (0.0-0.7); Eosinophils Percent Auto 4.1 % (0.9-7.0); Hematocrit 28.5 % (36.0-48.0); Hemoglobin 9.9 g/dL (12.0-16.0); Immature Granulocytes Abs Auto 0.03 10^3/uL (0.00-0.03); Immature Granulocytes Pct Auto 0.4 % (0.0-0.5); Lymphocytes Absolute Auto 1.7 10^3/uL (1.2-3.8); Lymphocytes Percent Auto 23.1 % (20.5-60.0); Mean Corpuscular HGB Conc 34.7 g/dL (29.9-35.2); Mean Corpuscular Hemoglobin 31.1 pg (26.7-34.0); Mean Corpuscular Volume 89.6 fL (81.0-99.0); Mean Platelet Volume 8.9 fL (9.5-13.5); Monocytes Absolute Auto 0.6 10^3/uL (0.3-0.8); Monocytes Percent Auto 7.6 % (1.7-12.0); Neutrophils Absolute Auto 4.7 10^3/uL (1.4-6.5); Neutrophils Percent Auto 64.3 % (43.0-75.0); Platelet Count 143 10^3/uL (150-450); Red Blood Count 3.18 10^6/uL (4.20-5.40); Red Cell Distribution Width 12.5 % (11.0-15.0); White Blood Count 7.4 10^3/uL (4.0-11.0)
[2023-12-28] MEDS: CEFTRIAXONE 1,000 MG in 0.9 % SODIUM CHLORIDE 50 ML 100 MG IV (06:23)
--- NOTE | 2023-12-28 08:11 | PT.DAILY ---
Physical Therapy Daily Note PT Daily Note/Assess Start: 12/28/23 08:01 Freq: Status: Active Protocol: Document 12/28/23 08:02 [id number] (Rec: 12/28/23 08:11 AMAYA [id number]) Physical Therapy Daily Note/Assessment Time In/Time Out Time In 07:42 Time Out 07:59 Pain In Pain Level 6 Pain Out Pain Level 8 Subjective Subjective Pt supine upon arrival. Agreeable to PT. Nursing present throughout session. 6/ 10 pain with minimal movement in bed prior to session. Therapeutic Exercise Time Therapeutic Exercise Minutes (minutes) 5 Therapeutic Exercise Units 0 Therapeutic Exercise Treatment Therapeutic Exercise Treatment Seated bilat LE strengthening and ROM ex complete in BS chair 10x ea. Small range with L hip flexion. Therapeutic Activity Time Therapeutic Activity Minutes (minutes) 10 Therapeutic Activity Units 1 Therapeutic Activity Treatment Bed Mobility Ability Maximum Assist Chair Transfer Ability Moderate Assist Therapeutic Activity Comments Supine>sit with MaxA to advance L LE and upper body to sit at EOB. Pt has 1x posterior LOB when trying to transfer with less assistance. Pt require MaxA to scoot hips to EOB with bed pad. SIts EOB 2 min to get bearings. Min dizziness initially but quickly subsides. Sit>stand ModA+1 and SBA of 1. Pt requires bed to be elevated to successfully reach standing. Pt takes small sides steps with RW and pivots to BS chair with ModA and VC for erect posture. Pt remains in BS chair for seated ex. Breakfast is ordered. Pt in BS chair upon completion with call light in reach and needs met. Total Physical Therapy Time Total Therapy Minutes 15 Total Physical Therapy Units 1 Summary Daily Note Summary Improved standing tolerance today. Pain increased to 8/10 with weight bearing. Very guarded and small steps taken to achieve transfer to BS chair while requiring cues for posture and ModA for stability. Would benefit from SNF to improve strength, endurance, and mobility to return to PLOF.
--- NOTE | 2023-12-28 08:29 | PM.PN ---
Progress Note: Subjective Subjective Interval history: No complaints this morning. Pain when trying to get up with Physical therapy and hip pain when laying. She notes she had a bowel movement today. No fevers or chills Exam Narrative Exam Narrative: General: Patient is alert, and oriented to person, place and time with normal affect, proper hygiene Skin: no visible rashes, or ulcers Head: atraumatic, acephalic Eyes: PERRLA, no nystagmus present, conjunctiva clear, no scleral icterus Ears: normal gross auditory acuity Heart: Normal rate and rhythm, no murmurs/rubs/gallops Lungs: no audible wheezes, crackles and normal breath sounds all lung mendes Abdomen: Normal audible bowel sounds, no distension, No palpable masses, no organomegaly, no rebound/guarding/ or rigidity Musculoskeletal: no swelling bilateral lower extremities Neuro: CN II-X grossly intact Constitutional Vital Signs, click to edit/add: Last Vital Signs Temp 98.1 F 12/28/23 00:00 Pulse 78 12/28/23 04:00 Resp 15 12/28/23 04:00 BP 132/92 H 12/28/23 04:00 Pulse Ox 90 L 12/28/23 04:00 O2 Del Method Room Air 12/28/23 04:00 O2 Flow Rate 2 12/27/23 16:31 Progress Note: Objective Labs Labs: Short CBC 12/28/23 Range/Units 05:58 WBC 7.4 (4.0-11.0) 10^3/uL Hgb 9.9 L (12.0-16.0) g/dL Hct 28.5 L (36.0-48.0) % Plt Count 143 L (150-450) 10^3/uL Progress Note: A&P Assessment and Plan (1) Closed hip fracture: Assessment and Plan: continue Lovenox and pain control, will stop Dilaudid and Percocet and switch to [place] and baclofen today. PT/OT. Patient awaiting placement in [facility] facility for rehab services. Qualifiers: Encounter type: initial encounter Laterality: left Qualified Code(s): S72.002A - Fracture of unspecified part of neck of left femur, initial encounter for closed fracture (2) Primary hypertension: Assessment and Plan: continue losartan. (3) Hypothyroidism (acquired): Assessment and Plan: continue levothyroxine (4) Depression: Assessment and Plan: continue sertraline Qualifiers: Depression Type: unspecified Qualified Code(s): F32.A - Depression, unspecified (5) UTI (urinary tract infection): Assessment and Plan: prelim showing gram negative rods, getting rocephin. Will place on PO Keflex. Qualifiers: Hematuria presence: without hematuria Urinary tract infection type: acute cystitis Qualified Code(s): N30.00 - Acute cystitis without hematuria Plan Patient is a full code continue lovenox Urinary Catheter Management Urinary Catheter Management Urethral: Cath placed during this visit: yes Urethral indwelling: Yes Reason for continuing: acute urinary retention Insertion date: 12/25/23 Insertion time: 19:07
[2023-12-28] MEDS: SERTRALINE HCL 100 MG TABLET 50 MG PO (08:59)
[2023-12-28] MEDS: LOSARTAN POTASSIUM 25 MG TABLET PO (08:59)
[2023-12-28] MEDS: ENOXAPARIN SODIUM 40 MG/0.4 ML SYRINGE SUBQ (08:59)
[2023-12-28] MEDS: HYDROCODONE/ACET 5-325 MG TABLET 1 TAB PO ×2 (14:02→21:35)
[2023-12-28] MEDS: CEPHALEXIN 500 MG CAPSULE PO (21:36)
[2023-12-28] MEDS: BACLOFEN 10 MG TABLET PO (21:36)
[2023-12-29] MEDS: HYDROCODONE/ACET 5-325 MG TABLET 1 TAB PO ×3 (01:25→16:41)
[2023-12-29 01:30] VITALS: BP 107/65; PULSE 90; TEMP 36.9; O2SAT 94
[2023-12-29 05:56] LABS: Basophils Absolute Auto 0.1 10^3/uL (0.0-0.1); Basophils Percent Auto 0.7 % (0.2-2.0); Eosinophils Absolute Auto 0.4 10^3/uL (0.0-0.7); Eosinophils Percent Auto 5.3 % (0.9-7.0); Hematocrit 27.1 % (36.0-48.0); Hemoglobin 9.3 g/dL (12.0-16.0); Immature Granulocytes Abs Auto 0.03 10^3/uL (0.00-0.03); Immature Granulocytes Pct Auto 0.4 % (0.0-0.5); Lymphocytes Absolute Auto 1.9 10^3/uL (1.2-3.8); Lymphocytes Percent Auto 27.9 % (20.5-60.0); Mean Corpuscular HGB Conc 34.3 g/dL (29.9-35.2); Mean Corpuscular Hemoglobin 30.5 pg (26.7-34.0); Mean Corpuscular Volume 88.9 fL (81.0-99.0); Mean Platelet Volume 9.1 fL (9.5-13.5); Monocytes Absolute Auto 0.5 10^3/uL (0.3-0.8); Monocytes Percent Auto 6.9 % (1.7-12.0); Neutrophils Percent Auto 58.8 % (43.0-75.0); Platelet Count 166 10^3/uL (150-450); Red Blood Count 3.05 10^6/uL (4.20-5.40); Red Cell Distribution Width 12.5 % (11.0-15.0); White Blood Count 6.8 10^3/uL (4.0-11.0)
[2023-12-29 06:00] VITALS: BP 108/66; PULSE 84; TEMP 36.6; O2SAT 95
[2023-12-29] MEDS: LEVOTHYROXINE SODIUM 125 MCG TABLET PO (06:00)
[2023-12-29 06:08] LABS: Anion Gap 11.6; BUN Creatinine Ratio 14.7; Calcium 7.9 mg/dL (8.5-10.1); Carbon Dioxide 29.4 mmol/L (21.0-32.0); Chloride 104 mmol/L (98-107); Estimated GFR (African America >60 (>=60 mL/min/1.73m^2); Estimated GFR (Non-African Ame >60 (>=60 mL/min/1.73m^2); Glucose 108 mg/dL (74-106); Sodium 141 mmol/L (136-145)
[2023-12-29 07:30] VITALS: BP 119/69; PULSE 69; TEMP 36.7; O2SAT 93
[2023-12-29] MEDS: SERTRALINE HCL 100 MG TABLET 50 MG PO (08:12)
[2023-12-29] MEDS: CEPHALEXIN 500 MG CAPSULE PO (08:12)
[2023-12-29] MEDS: LOSARTAN POTASSIUM 25 MG TABLET PO (08:12)
[2023-12-29] MEDS: ENOXAPARIN SODIUM 40 MG/0.4 ML SYRINGE SUBQ (08:12)
[2023-12-29] MEDS: ACETAMINOPHEN 500 MG TABLET 1000 MG PO (08:12)
--- NOTE | 2023-12-29 08:24 | PM.PN ---
Progress Note: Subjective Subjective Interval history: Patient is pod #3 from left hemiarthroplasty, hb stable. Patient's pain is more controlled on the medication switch yesterday. She notes right ear pain that started last night, pressure and pain and difficult to hear. No fevers or chills. She notes she had a bowel movement yesterday. Exam Narrative Exam Narrative: General: Patient is alert, and oriented to person, place and time with normal affect, proper hygiene Skin: no visible rashes, or ulcers Head: atraumatic, acephalic Eyes: PERRLA, no nystagmus present, conjunctiva clear, no scleral icterus Ears: right cerumen impaction, with diminished gross auditory acuity on the right Heart: Normal rate and rhythm, no murmurs/rubs/gallops Lungs: no audible wheezes, crackles and normal breath sounds all lung mendes Abdomen: Normal audible bowel sounds, no distension, No palpable masses, no organomegaly, no rebound/guarding/ or rigidity Musculoskeletal: no swelling bilateral lower extremities Neuro: CN II-X grossly intact Constitutional Vital Signs, click to edit/add: Last Vital Signs Temp 98.0 F 12/29/23 07:30 Pulse 69 12/29/23 07:30 Resp 18 12/29/23 07:30 BP 119/69 12/29/23 07:30 Pulse Ox 93 L 12/29/23 07:30 O2 Del Method Room Air 12/29/23 07:30 O2 Flow Rate 2 12/27/23 16:31 Progress Note: Objective Labs Labs: Short CBC 12/29/23 Range/Units 05:32 WBC 6.8 (4.0-11.0) 10^3/uL Hgb 9.3 L (12.0-16.0) g/dL Hct 27.1 L (36.0-48.0) % Plt Count 166 (150-450) 10^3/uL BMP 12/29/23 05:32 Sodium 141 Potassium 4.0 Chloride 104 Carbon Dioxide 29.4 BUN 11.0 Creatinine 0.75 Glucose 108 H Calcium 7.9 L Progress Note: A&P Assessment and Plan (1) Closed hip fracture: Assessment and Plan: continue Lovenox and pain control, continue [place] and baclofen. PT/OT. Patient awaiting placement in residential facility for rehab services Qualifiers: Encounter type: initial encounter Laterality: left Qualified Code(s): S72.002A - Fracture of unspecified part of neck of left femur, initial encounter for closed fracture (2) Primary hypertension: Assessment and Plan: continue losartan. (3) Hypothyroidism (acquired): Assessment and Plan: continue levothyroxine (4) Depression: Assessment and Plan: continue sertraline Qualifiers: Depression Type: unspecified Qualified Code(s): F32.A - Depression, unspecified (5) UTI (urinary tract infection): Assessment and Plan: prelim showing gram negative rods, on PO Keflex. Qualifiers: Hematuria presence: without hematuria Urinary tract infection type: acute cystitis Qualified Code(s): N30.00 - Acute cystitis without hematuria (6) Impacted cerumen of right ear: Assessment and Plan: will place on debrox drops Plan Patient is a full code continue lovenox Urinary Catheter Management Urinary Catheter Management Urethral: Cath placed during this visit: yes Urethral indwelling: Yes Reason for continuing: prolonged immobilization Insertion date: 12/25/23 Insertion time: 19:07
--- NOTE | 2023-12-29 08:41 | CM.NOTE ---
E-mailed updates to Jose mercado. PT notes and Physician progress notes sent.
--- NOTE | 2023-12-29 09:00 | SWNOTE1 ---
MYLES reached out to Jose at [facility] and Jose did start precert on Friday.
[2023-12-29] MEDS: ONDANSETRON PF 4 MG/2 ML VIAL IV (10:07)
--- NOTE | 2023-12-29 10:19 | REH.PTDLY ---
Physical Therapy Daily Note PT Daily Note/Assess Start: 12/28/23 08:01 Freq: Status: Active Protocol: Document 12/29/23 10:12 TARIK (Rec: 12/29/23 10:19 TARIK [id number]) Physical Therapy Daily Note/Assessment Time In 09:25 Time Out 09:45 Subjective Pt reports pain is better controlled today, feel like maybe I could use the restroom . Therapeutic Exercise Minutes (minutes) 4 Therapeutic Exercise Units 0 Therapeutic Exercise Treatment Instructed in B AP and LAQ 10x ea, Marching with R LE only 10x ea. Pt reports feeling nauseated at this time. Therapeutic Activity Minutes (minutes) 11 Therapeutic Activity Units 1 Therapeutic Activity Comments Mod A x2 with supine to sit transfer. Pt attempted 2x with Max A x1, but pt is unable to keep per balance and keeps leaning backwards initially upon sitting with no support. Sit to stand transfers Mod A. Pt performs stand pivot transfer to the commode going to the R side, Mod A. Cues for gait training from commode to the chair 4 feet with cues when turning to reach back for chair prior to sitting. Min A x1, and CGA x1 when lowering into chair. Total Therapy Minutes 15 Total Physical Therapy Units 1 Daily Note Summary Pt has improved transfers compared to previous visits, but still requires Mod A with several cues for safety. Pt unable to care for herself at this time and will require SNF to gain strength for independent gait and transfers . 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
--- NOTE | 2023-12-29 10:44 | SWNOTE1 ---
SW faxed OT note to [facility] for precert.
--- NOTE | 2023-12-29 10:53 | CM.NOTE ---
Rounds made with Dr. Rios, pt verbalizes pain now is controlled. Continue with PT for ambulation.
--- NOTE | 2023-12-29 10:59 | CM.NOTE ---
2nd Important Message From Medicare discussed with pt, pt denies any questions or concerns.
--- NOTE | 2023-12-29 12:50 | SWNOTE1 ---
Pt's son Jeevan was in room and requested to speak with someone about discharge. SW went in and updated pt's son Jeevan that we are just waiting for the insurance to approve pt to go to [facility]. SW unsure if this will happen today. MYLES let Jeevan know that we will notify him once we hear from the [facility] when pt gets approved.
--- NOTE | 2023-12-29 15:33 | SWNOTE1 ---
SW did receive a phone call from Jerica at [facility]. She had received a phone call from insurance about being the preferred facility? SW had received the same phone call from pt's insurance and they did give authorization from 12/25-12/31 but it was for [facility]. The insurance processor asked if [facility] or [facility] was preferred facility. MYLES let her know that [facility] is and that the referral for [facility] should have been cancelled late morning to [facility] and unsure how [facility] would have even started a precert as they had very little information. The case monitor stated that they do not have to re-start precert, they can use same precert approval and the authorization number will be changed, as long as pt admits by the then no new precert is needed. The insurance is going to call the [facility] and let them know the same information. MYLES sent e-mail to Jerica and let her know to call once they get phone call from insurance.
--- NOTE | 2023-12-29 15:56 | SWNOTE1 ---
MYLES sent email to Jerica to call the floor in case she heard back from the insurance and got the approval from her [employer] company.
[2023-12-29 16:18] VITALS: BP 123/54; PULSE 67; TEMP 36.6; O2SAT 96
--- NOTE | 2023-12-29 17:45 | PM.DS1 ---
DS: Providers Provider Date of admission: 12/25/23 18:46 Primary care physician: DOMINIC HERBERT Consults: 12/25/23 19:26 Consult to Pharmacy Routine Consulting Provider: Reason for consultation: Please [place] me when Med Rec is Updated Has provider been notified: No Occupational Therapy Eval and Treat Routine Reason for consultation: Only if needed for Rehab Has provider been notified: No Physical Therapy Eval and Treat Routine Reason for consultation: Eval and Treat Has provider been notified: No DS: Diagnosis Discharge Diagnosis (1) Closed hip fracture: Qualifiers: Encounter type: initial encounter Laterality: left Qualified Code(s): S72.002A - Fracture of unspecified part of neck of left femur, initial encounter for closed fracture (2) Primary hypertension: (3) Hypothyroidism (acquired): (4) Depression: Qualifiers: Depression Type: unspecified Qualified Code(s): F32.A - Depression, unspecified (5) UTI (urinary tract infection): Qualifiers: Urinary tract infection type: acute cystitis Hematuria presence: without hematuria Qualified Code(s): N30.00 - Acute cystitis without hematuria (6) Impacted cerumen of right ear: DS: Summary Hospital Course Hospital Course: please see progress note dated 12/29/23, [facility] was accepted [facility] Status at Discharge Functional status at discharge: uses cane/walker Overall status at discharge: patient is not back to baseline Time Spent with Patient Time attestation: Total time spent providing and/or coordinating discharge services: Time spent: greater than 30 minutes Exam Narrative Exam Narrative: no change at discharge from progress note dated 12/29/23 Constitutional Vital Signs, click to edit/add: Last Vital Signs Temp 97.9 F 12/29/23 16:18 Pulse 67 12/29/23 16:18 Resp 18 12/29/23 16:18 BP 123/54 12/29/23 16:18 Pulse Ox 96 12/29/23 16:18 O2 Del Method Room Air 12/29/23 16:18 O2 Flow Rate 2 12/27/23 16:31 DS: Data Data Completed and Pending Labs on day of discharge: Labs from last 24 hours 12/29/23 05:32 WBC 6.8 RBC 3.05 L Hgb 9.3 L Hct 27.1 L MCV 88.9 MCH 30.5 MCHC 34.3 RDW 12.5 Plt Count 166 MPV 9.1 L Neut % (Auto) 58.8 Lymph % (Auto) 27.9 [place] % (Auto) 6.9 Eos % (Auto) 5.3 Baso % (Auto) 0.7 Neut # (Auto) 4.0 Lymph # (Auto) 1.9 [place] # (Auto) 0.5 Eos # (Auto) 0.4 Baso # (Auto) 0.1 Abs Immat Gran (auto) 0.03 Imm/Tot Granulo (auto) 0.4 Sodium 141 Potassium 4.0 Chloride 104 Carbon Dioxide 29.4 Anion Gap 11.6 BUN 11.0 Creatinine 0.75 Est GFR ( Amer) >60 Est GFR (Non-Af Amer) >60 BUN/Creatinine Ratio 14.7 Glucose 108 H Calcium 7.9 L Preliminary micro results at discharge 12/26/23 01:17 Urine Culture - Preliminary Urine,Clean Catch Gram negative alcides Discharge Plan Discharge Disposition: Xfer SNF Condition: Good Discharge Medications: New hydrocodone-acetaminophen 5-325 mg Tablet 1 tab PO Q4H PRN (Reason: Pain) 2 Days Qty: 12 0RF acetaminophen 500 mg Tablet 1,000 mg PO Q6H PRN (Reason: Pain Scale 4-6) 3 Days Qty: 12 0RF baclofen 10 mg Tablet 10 mg PO BID PRN (Reason: Spasms) 2 Days Qty: 4 0RF cephalexin 500 mg Capsule 500 mg PO BID 7 Days Qty: 14 0RF Ear Wax Removal Drops 6.5 % Drops 7 drp otic (ear) BID 7 Days Qty: 1 0RF aspirin 81 mg capsule 81 mg PO DAILY Qty: 14 0RF Continued levothyroxine 125 mcg tablet 125 mcg PO .ACB losartan 25 mg tablet 25 mg PO QAM sertraline 100 mg tablet 50 mg PO .QD Print Language: Kiswahili Activity Restrictions/Additional Instructions: Hip precautions for 6 weeks, abduction pillow when in bed Forms: Portal Instructions Follow Up Appointments: Please schedule follow up appt with Dr Shore in 3 weeks [phone]
== END 2023-12-29 18:05 | DRG 522 ==
LOC: ER 17:44 → MS 18:50
PROVIDERS: Orthopaedic Surgery; Admitting Provider Family Medicine; Emergency Provider Emergency Medicine; PCP Internal Medicine; Visit Provider Family Medicine
PROC: 0SRS0J9 Replacement of Left Hip Joint, Femoral Surface with Synthetic Substitute, Cemented, Open Approach (ICD-10-PCS; principal; 2023-12-26 12:30)
DX: S72.002A Fracture of unspecified part of neck of left femur, initial encounter for closed fracture (principal); N30.00 Acute cystitis without hematuria; W17.89XA Other fall from one level to another, initial encounter; K21.9 Gastro-esophageal reflux disease without esophagitis; I10 Essential (primary) hypertension; D72.829 Elevated white blood cell count, unspecified; E03.9 Hypothyroidism, unspecified; Z79.890 Hormone replacement therapy; F32.A Depression, unspecified; Z79.899 Other long term (current) drug therapy; H61.21 Impacted cerumen, right ear; B96.20 Unspecified Escherichia coli [E. coli] as the cause of diseases classified elsewhere
CPT/HCPCS: 36415; 51702; 72100; 73110; 73502; 80048; 80076; 81001; 83605; 85025; 85610; 85730; 86850; 86900; 86901; 87086; 87150; 87186; 93005; 94667; 94761; 96374; 96376; 97162; 97165; 97530; 99285; C1713; C1776; J0690; J0696; J1171; J1650; J2270; J2405; J2704; J3010

== ENCOUNTER 2024-02-21 11:34 | Inpatient (IN) | payer MEDICARE, SELFPAY ==
[2024-02-21 11:38] VITALS: BP 135/67; PULSE 98; TEMP 36.6; O2SAT 96; BMI 26.6
--- OUTSIDE RECORDS SUMMARY | 2024-02-21 11:43 | XMS_ITS | CCD ---
Author Organization [facility] CliniSyoh Care Team Providers Care Starchmaker Name Role Phone SHAW FRANCOIS Unavailable Unavailable FRANCOIS SHAW Unavailable Unavailable ALESSANDRO SHAW Unavailable Unavailable FRANCOIS SHAW Unavailable Unavailable Alessandro II Shaw Primary Care Provider [phone] DO Naya Weber Attending Provider Shaw Francois II Primary Care Provider ABHYANKAR, GARRETT Admitting Unavailable ABCHARITYANKAR, GARRETT Attending Unavailable DR SHAW FRANCOIS Primary Care Unavailable WAYNE, DR NAYA Lewis Consulting Unavailable ABHYANKAR, GARRETT Consulting Unavailable Shaw Francois II Primary Care Provider [phone] ABHYANKAR, GARRETT Attending Unavailable ABHYANKAR, GARRETT Referring Unavailable SHAW FRANCOIS II Primary Care Unavailable ABHYANKAR, GARRETT Referring Unavailable SHAW FRANCOIS II Primary Care Unavailable MARIA ELENA Francois Primary Care Provider MD Jeevan Sanchez II Attending Provider DEBI Chaparro Other Provider Unavailable DEBI Anderson Other Provider Unavailable DEBI Orona Other Provider Unavailable DEBI Farfan Other Provider Unavailable DEBI Velasco Other Provider Unavailable MD Daryn Rowland Other Provider DO Amy Zacarias Other Provider [phone] MD Rufino Valdovinos Other Provider [phone] DO Trevor Bloom Other Provider MD Edmund Palencia Other Provider [phone] MD Moriah Torre Other Provider MD Donovan Jordan Other Provider Unavailable DAWN [...] Other Provider DO Yovani Quintana Other Provider DO Mayda Disla Other Provider MD Neville Bonilla P Other Provider MD Vargas Ambriz Other Provider DAWN Tejada Allison Other Provider [phone] MD Merrick Cheng Other Provider MD Neeraj Pham Other Provider DEBI Thornton Other Provider Unavailable MD Vinnie Yin Other Provider MARIA ELENA Francois Primary Care Provider MD Jeevan Sanchez II Attending Provider MARIA ELENA Francois Primary Care Provider MD Jeevan Sanchez II Attending Provider Shaw Francois MD Primary Care Provider Shaw Francois MD Unavailable MARIA ELENA Francois Primary Care Provider MD Jeevan Sanchez II Attending Provider Daniel ARREDONDO, Jeevan Rayo Attending Unavailabl e Alessandro Shaw Primary Care Unavailable Daniel II, Jeevan M Admitting Unavailabl e Francois Shaw Primary Care Unavailable Cleveland II, Jeevan M Attending Unavailabl e Cleveland II, Jeevan M Admitting Unavailabl e Francois Shaw Primary Care Unavailable Daniel II, Jeevan Rayo Attending Unavailabl e Daniel II, Jeevan M Admitting Unavailabl e Daniel II, Jeevan M Admitting Unavailabl e Cleveland II, Jeevan M Attending Unavailabl e Francois Shaw Primary Care Unavailable Francois Shaw Primary Care Unavailable Cleveland II, Jeevan M Attending Unavailabl e Cleveland II, Jeevan M Admitting Unavailabl e Cleveland II, Jeevan M Admitting Unavailabl e Cleveland II, Jeevan M Attending Unavailabl e Alessandro Shaw Primary Care Unavailable Francois Shaw Primary Care Unavailable Daniel II, Jeevan Rayo Attending Unavailabl e Cleveland II, Jeevan M Admitting Unavailabl e Nancy Chaparro Consulting Unavailable Samantha Anderson Consulting Unavailable Naila Orona Consulting Unavailable Ada Farfan Consulting Unavailable Huyen Velasco Consulting Unavailable Daryn Rowland Consulting Unavailable Amy Zacarias Consulting Unavailable Rufino Valdovinos Consulting Unavailable Trevor Bloom Consulting Unavailabl e Slime, Edmund Consulting Unavailable Moriah Torre Consulting Unavailable Donovan Jordan Consulting Unavailable Halle Salmeron Consulting Unavailabl e Gm Manning Consulting Unavailable Fabricio Gagnon Consulting Unavailable Makenna [...] II Attending UnavailShaw Avila Primary Care Unavailable Shaw Oconnor MD Primary Care Provider CAROLINE SHORE Referring Unavailable SHAW OCONNOR Primary Care Unavailable SHAW OCONNOR Primary Care Unavailable CAROLINE SHORE Referring Unavailable JACINTO DUTTA Attending Unavailable JR. ADDISON GEORGE C Attending UnavailSHAW Luna Attending Unavailable SHAW FRANCOIS Attending Unavailable JACKIE PERSAUD Attending Unavailable FRANNIE DÍAZ Referring Unavailable ANTONETTE GUNN Attending Unavailable FRANNIE DÍAZ Referring Unavailable JACKIE PERSAUD Attending Unavailable FRANNIE DÍAZ Referring Unavailable ANTONETTE GUNN Attending Unavailable FRANNIE DÍAZ Referring Unavailable PILO OSORIO Attending Unavailable MARQUIS, FRANNIE Referring Unavailable KELBLEY, ANTONETTE Attending Unavailable MARQUIS, FRANNIE Referring Unavailable KELBLEY, ANTONETTE Attending Unavailable MARQUIS, FRANNIE Referring Unavailable KELBLEY, ANTONETTE Attending Unavailable MARQUIS, FRANNIE Referring Unavailable KELBLEY, ANTONETTE Attending Unavailable MARQUIS, FRANNIE Referring Unavailable KELBLEY, ANTONETTE Attending Unavailable MARQUIS, FRANNIE Referring Unavailable KELBLEY, ANTONETTE Attending Unavailable MARQUIS, FRANNIE Referring Unavailable KELBLEY, ANTONETTE Attending Unavailable MARQUIS, FRANNIE Referring Unavailable JACKIE PERSAUD Attending Unavailable MARQUIS, FRANNIE Referring Unavailable KELBLEY, ANTONETTE Attending Unavailable MARQUIS, FRANNIE Referring Unavailable KELBLEY, ANTONETTE Attending Unavailable MARQUIS, FRANNIE Referring Unavailable KELBLEY, ANTONETTE Attending Unavailable MARQUIS, FRANNIE Referring Unavailable KELBLEY, ANTONETTE Attending Unavailable MARQUIS, FRANNIE Referring Unavailable SHAW FRANCOIS Attending Unavailable Allergies Allergy Classification Reported Allergen(s) Allergy Type Date of Onset Reaction(s) Facility (20 sources) Sulfonamides (Antibiotic); Translations: [SULFA (SULFONAMIDE ANTIBIOTICS)] Drug Allergy 2 Rash, Swelling, Unknown [facility] Work Phone: (1 source) Sulfonamides (Antibiotic) Drug allergy (disorder) 6 [facility] Repository (20 sources) Nitrofurantoin Drug Allergy 1 Unknown [facility] Healthcare (1 source) Sulfonamides (Antibiotic) Drug allergy (disorder) 4 [facility] Repository Medications Current Medications Medication Drug [...] Every 8 hours August 18, 2023 12:00am acetaminophen 325 mg / HYDROcodone bitartrate 5 mg oral tablet (6 sources) Opioid Agonist Start: 02-02-2024 End: 02-08-2024 take 1 tablet by mouth every six hours for pain HYDROcodone-acetaminophen (Solon) 5-325 MG tablet Indications: Closed fracture of left hip with routine healing, subsequent encounter Take 1 tablet by mouth every 6 (six) hours if needed for severe pain for up to 5 days 20 tablet 02/03/2024 02/08/2024 Active aspirin 81 mg delayed release oral tablet (10 sources) Platelet Aggregation Inhibitor, Nonsteroidal Anti-inflammator y Drug Start: 08-21-2023 take 81 mg by mouth twice daily Aspirin Active 81 MG PO Twice daily 70 35 August 21, 2023 12:00am do not reconcile until DOS: 09/01/2023 med to bed cefadroxil 500 mg oral capsule (10 sources) Cephalosporin Antibacterial Start: 08-21-2023 take 500 mg by mouth every twelve hours Cefadroxil Active 500 MG PO Q12H 14 7 August 21, 2023 12:00am do not reconcile [...] 2021 12:00am cholecalciferol (Vitamin D-3) 50 MCG (1999 UT) tablet 1 (one) time each day at the same time. Active Cholecalciferol, Vitamin D3, 25 mcg (1,000 unit) cap Take by mouth once daily. 0 Active Comment on above: Take by mouth once d aily. levothyroxine sodium 0.125 mg oral tablet (20 sources) l-Thyroxine Start: 03-13-19 20 take 1 tablet by mouth before mealtime levothyroxine (Synthroid, Levoxyl) 125 MCG tablet Indications: Postoperative hypothyroidism (CMS/HCC) Take 1 tablet (125 mcg) by mouth in the morning. Take before meals. 100 tablet 2 04/18/2023 Active Comment on above: Take 125 mcg by mout h once daily. losartan potassium 25 mg oral tablet (20 sources) Angiotensin 2 Receptor Teri Start: 02-09-20 15 take 1 tablet by mouth in the morning losartan (Cozaar) 25 MG tablet Indications: Benign essential hypertension (CMS/HCC) Take 1 tablet (25 mg) by mouth in the morning. 100 tablet 3 03/26/2023 Active Comment on above: Take 25 mg by mouth once daily. Multiple Vitamins-Minerals (CENTRUM SILVER ULTRA WOMENS PO) (20 sources) Multiple Vitamins-Minerals (CENTRUM SILVER ULTRA WOMENS PO) Centrum Silver Active Multivitamin-Minerals -Lutein (14 sources) Start: 05-23-19 take 1 tablet by mouth once daily Multivitamin-Minerals -Lutein Active 1 TAB PO Daily May 22, 2021 12:00am naproxen sodium 220 mg oral capsule (11 sources) Nonsteroidal Anti-inflammatory Drug Start: 08-18-19 take 1 capsule by mouth twice daily [...] daily Prednisone Active 10 MG PO daily 11 19August 21, 2023 12:00am do not reconcile until DOS: 09/01/2023 med to bed sertraline 100 mg oral tablet (20 sources) Serotonin Reuptake Inhibitor Start: 04-11-2023 End: 02-02-2024 take 0.5 tablet by mouth once daily sertraline (Zoloft) 100 MG tablet Indications: Depressive disorder (CMS/HCC) Take 0.5 tablets (50 mg) by mouth Daily 45 tablet 3 02/02/2024 Active Start: 05-22-2021 take 50 mg by [...] 10:18am docusate sodium 50 mg / sennosides, [facility] 8.6 mg oral tablet (10 sources) Start: 08-21-2023 End: 10-15-2023 take 2 tablets by mouth once daily Sennosides-Docusat e Sodium (Senokot-S) 8.6-50 mg tablet Discontinued 2 TAB PO daily 60 August 21, 2023 12:00am October 15, 2023 2:43pm do not reconcile until DOS: 09/01/2023 med to bed Multivitamins-Tubac als-Lutein (CENTRUM SILVER) ORAL Tab (1 source) Start: 04-17-2011 take 1 tablet by mouth once daily Multivitamins-Mine rals-Lutein (CENTRUM SILVER) ORAL Tab Take 1 tablet by mouth once daily. 90 tablet 4 04/17/2011 Active Comment on above: Take 1 tablet by maira de jesus th once daily. Multivitamins-Tobacco Prizer als-Lutein (CENTRUM SILVER) tab (1 source) Start: [...] 09/01/2023 med to bed polyethylene glycol 3350 32876 mg powder for oral solution (10 sources) [...] Date Documented Date Episodic/Chronic Acquired foot deformities (20 sources) Acquired hammer toe of right foot; Translations: [Other hammer toe(s) (acquired), right foot] Onset: 01-19-2016 09-05-2022 Chronic Administrative/socia l admission (15 sources) Other reduced mobility; Translations: [Impaired mobility and activities of daily living] Onset: 09-01-2023 09-02-2023 Episodic Cancer of breast (20 sources) Malignant neoplasm of female breast; Translations: [Malignant neoplasm of unspecified site of right female breast] Onset: 04-19-2011 Chronic Complications of surgical procedures or medical care (20 sources) Postoperative hypothyroidism; Translations: [Postprocedural hypothyroidism] Onset: 07-26-2020 09-05-2022 Chronic Conduction disorders (20 sources) Right bundle branch block; Translations: [Unspecified right bundle-branch block] Onset: 02-09-2016 09-05-2022 Chronic Disorders of lipid metabolism (20 sources) Primary hypercholesterolemia; Translations: [Pure hypercholesterolemia, unspecified] Onset: 11-30-2018 09-05-2022 Chronic Esophageal disorders (20 sources) Gastroesophageal reflux disease; Translations: [Gastro-esophageal reflux disease without esophagitis] Onset: 02-09-2016 01-22-2023 Chronic Essential hypertension (20 sources) Hypertensive disorder; Translations: [Essential (primary) hypertension] Onset: 12-08-2014 09-01-2023 Chronic Fracture of neck of femur (hip) (7 sources) Closed fracture of neck of left femur; Translations: [Fracture of unspecified part of neck of left femur, initial encounter for closed fracture] Onset: 01-16-2024 01-16-2024 Episodic Genitourinary congenital anomalies (20 sources) Multiple congenital cysts of kidney; Translations: [Cystic kidney disease, unspecified] Onset: 04-17-2015 09-05-2022 Chronic Genitourinary symptoms and ill-defined conditions (20 sources) Urinary incontinence; Translations: [Unspecified urinary incontinence] Onset: 11-02-2018 09-05-2022 Chronic Menopausal disorders (20 sources) Decreased estrogen level; Translations: [Other primary ovarian failure] Onset: 08-23-2020 09-05-2022 Chronic Mood disorders (20 sources) Depressive disorder; Translations: [Depressive disorder] Onset: 12-08-2014 09-05-2022 Chronic Occlusion or stenosis of precerebral arteries (20 sources) Carotid artery stenosis; Translations: [Occlusion and stenosis of unspecified carotid artery] Onset: 04-14-2015 09-05-2022 Chronic Osteoarthritis (20 sources) Osteoarthritis of right knee joint; Translations: [Unilateral primary osteoarthritis, right knee] Onset: 12-08-2020 06-26-2023 Chronic Osteoporosis (14 sources) Osteoporosis; Translations: [Age-related osteoporosis without current pathological fracture] Onset: 07-17-2023 07-17-2023 Chronic Other aftercare (20 sources) Patient encounter status; Translations: [Aftercare following joint replacement surgery] 09-17-2023 Chronic Other aftercare (13 sources) Aftercare following joint replacement surgery; Translations: [Aftercare following joint replacement] Onset: 10-15-2023 09-18-2023 Chronic Other aftercare (13 sources) Long-term current use of drug therapy; Translations: [Other retirement (current) drug therapy] 07-17-2023 Episodic Other connective [...] hip] 06-25-2023 Episodic Other non-traumatic joint disorders (14 sources) Stiffness of right knee; Translations: [Stiffness of right knee, not elsewhere classified] 11-11-2023 Episodic Other screening for suspected conditions (not mental disorders or infectious disease) (2 sources) Patient encounter status; Translations: [Encounter for other screening for malignant neoplasm of breast] Episodic Other upper respiratory disease (20 sources) Allergic rhinitis; Translations: [Allergic rhinitis, unspecified] Onset: 04-14-2015 09-05-2022 Chronic Residual codes; unclassified (20 sources) Obstructive sleep apnea syndrome; Translations: [Obstructive sleep apnea (adult) (pediatric)] Onset: 12-08-2014 09-05-2022 Chronic Residual codes; unclassified (1 source) Other specified health status; Translations: [Other specified health status] Onset: 09-01-2023 Episodic Spondylosis; intervertebral disc disorders; other back problems (20 sources) 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; Translations: [Other cervical disc displacement, unspecified cervical region] Onset: 01-15-2016 09-05-2022 Chronic Thyroid disorders (20 sources) Multinodular goiter; Translations: [Nontoxic multinodular goiter] Onset: 11-30-2018 09-05-2022 Chronic Past or Other Problems Problem Classification Problem Date Documented Da te Episodic/Chronic Cancer of breast (20 sources) History of malignant neoplasm of breast; Translations: [Personal history of malignant neoplasm of breast] Onset: 06-10-2022 Episodic Other aftercare (1 source) Other retirement (current) drug therapy; Translations: [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] Onset: 07-17-2023 Episodic Other bone disease and musculoskeletal deformities (20 sources) Osteopenia; Translations: [Other specified disorders of bone density and structure, unspecified site] Onset: 07-27-2013 07-27-2013 Episodic Other connective tissue disease (20 sources) Muscle pain; Translations: [Myalgia, unspecified site] Onset: 03-19-2023 03-19-2023 Episodic Other non-traumatic joint disorders (20 sources) Pain in right knee; Translations: [Right knee pain] Onset: 08-21-2023 06-25-2023 Episodic Other non-traumatic joint disorders (1 source) Pain in left hip; Translations: [Pain in left hip] Onset: 06-26-2023 Episodic Residual codes; unclassified (20 sources) History of right mastectomy; Translations: [Acquired absence of right breast and nipple] Onset: 07-17-2015 09-05-2022 Episodic Residual codes; unclassified (20 sources) Memory impairment; Translations: [Other amnesia] Onset: 12-10-2017 09-05-2022 Episodic Results Test Name Value Interpretation Reference Range Facility XR HIP 2-3 VW W PELVIS LEFTo n 01-16-2024 XR HIP 2-3 VW W PELVIS LEFT EXAM: XR HIP 2-3 VW W PELVIS LEFT HISTORY: Closed fracture of neck of left femur, initial encounter ([facility]) COMPARISON: 12/26/2023, Raphael. IMPRESSION: FINDINGS/IMPRESSION: 1. Skin neptali remain. 2. 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 3. Anatomic alignment. 4. No hardware failure, fracture, or dislocation. Interpreted by: Reza Hennessy Jr., MD Signed by: Reza Hennessy Jr., MD 01/16/24 Final result Normal [facility] XR Pelvis and Hip - left 2 V iewson 01-16-2024 FINDINGS/IMPRESSION: 1. Skin neptali remain. 2. 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 3. Anatomic alignment. 4. No hardware failure, fracture, or dislocation. [facility] EXAM: XR HIP 2-3 VW W PELVIS LEFT HISTORY: Closed fracture of neck of left femur, initial encounter ([facility]) COMPARISON: 12/26/2023, Raphael. [facility] Reza Hennessy Jr., MD - 01/16/2024 EXAM: XR HIP 2-3 VW W PELVIS LEFT HISTORY: Closed fracture of neck of left femur, initial encounter ([facility]) COMPARISON: 12/26/2023, Raphael. IMPRESSION: FINDINGS/IMPRESSION: 1. Skin neptali remain. 2. 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 3. Anatomic alignment. 4. No hardware failure, fracture, or dislocation. [facility] Radiology Study observation (narrative) [facility] XR Pelvis and Hip - left 2 V iewsOrdered By: Reza Hennessy on 01-16-2024 [facility] Work Phone: Laboratory - Microbiology an d Antimicrobial susceptibilityon 12-30-2023 Bacteria identified Cx Nom (U) *ABNORMAL* [facility] Bacteria identified Cx Nom (U) Greater than 100,000 colony forming units per mL [facility] Bacteria identified Cx Nom (U) [facility] URINE CULTURE, ROUTINEon Bacteria identified Cx Nom (U) Urine Culture, Routine Organism: Gram negative alcides : [facility] Bacteria identified Cx Nom (U) Growth observed. Further testing to rule out possible pathogen(s) [facility] Bacteria identified Cx Nom (U) is in progress. [facility] Bacteria identified Cx Nom (U) Negative [facility] Bacteria identified Cx Nom (U) Organism: Escherichia coli, : [facility] Bacteria identified Cx Nom (U) Cefazolin <=4 ug/mL [facility] Bacteria identified Cx Nom (U) Cefazolin with an FRANK <=16 predicts susceptibility [facility] Bacteria identified Cx Nom (U) to the oral agents cefaclor, cefdinir, cefpodoxime, [facility] Bacteria identified Cx Nom (U) cefprozil, cefuroxime, cephalexin, and loracarbef when [facility] Bacteria identified Cx Nom (U) used for therapy of uncomplicated urinary tract [facility] Bacteria identified Cx Nom (U) infections due to E. coli, Klebsiella pneumoniae, and [facility] Bacteria identified Cx Nom (U) Proteus mirabilis. [facility] Bacteria identified Cx Nom (U) Not applicable [facility] Bacteria identified Cx Nom (U) Escherichia coli, [facility] Bacteria identified Cx Nom (U) O:ECMS Isolated [facility] Bacteria identified Cx Nom (U) O:GNR Isolated [facility] Bacteria identified Cx Nom (U) Performed at: [facility] Bacteria identified Cx Nom (U) [address] [place] [phone] [facility] Bacteria identified Cx Nom (U) Rate Clerk: Kendell Teague PhD, Phone: [phone] [facility] Bacteria identified Cx Nom (U) Organism: 1.1 Antibiotic Interpretation FRANK Status [facility] Bacteria identified Cx Nom (U) AMOXICILLIN/CLAVULANIC ACID S F Susceptible [facility] Bacteria identified Cx Nom (U) Ampicillin S F Susceptible [facility] Bacteria identified Cx Nom (U) Cefepime S F Susceptible [facility] Bacteria identified Cx Nom (U) Ceftriaxone S F Susceptible [facility] Bacteria identified Cx Nom (U) Cefuroxime S F Susceptible [facility] Bacteria identified Cx Nom (U) Ciprofloxacin S F Susceptible [facility] Bacteria identified Cx Nom (U) Ertapenem S F Susceptible [facility] Bacteria identified Cx Nom (U) Gentamicin S F Susceptible [facility] Bacteria identified Cx Nom (U) Imipenem S F Susceptible [facility] Bacteria identified Cx Nom (U) Levofloxacin S F Susceptible [facility] Bacteria identified Cx Nom (U) Meropenem S F Susceptible [facility] Bacteria identified Cx Nom (U) Nitrofurantoin S F Susceptible [facility] Bacteria identified Cx Nom (U) Tetracycline S F Susceptible [facility] Bacteria identified Cx Nom (U) Tobramycin S F Susceptible [facility] Bacteria identified Cx Nom (U) Trimethoprim/Sulfamethoxaz ole S F Susceptible [facility] Bacteria identified Cx Nom (U) Piperacillin/Tazobactam S F Susceptible [facility] Interpretation and review of laboratory results Abnormal [facility] XR femur RT 2V*on 11-25-2023 XR femur RT 2V* [facility] [address] [place] [address] XRay Report Signed Patient: Nadia Almeida MR#: [id number] : 1945 Acct:[id number] Age/Sex: 78 / F ADM Date: 11/25/23 Loc: [facility] Room: Type: [facility] Attending Dr: Jeevan Sanchez II, MD Copies to: Jeevan Sanchez MD Ordering Provider: Jeevan Sanchez MD Date of Service: 11/25/23 XR/XR femur RT 2V*: Z47.1 - Aftercare following joint replacement surgery ([id number]) XR/XR tibia fibula RT 2V*: Z47.1 - Aftercare following joint replacement surgery ([id number]) XR/XR knee RT 2V: Z47.1 - Aftercare [...] Jennifer Jon M.D.11/25/2023 5:49 PM Dictation Location: [facility] Transcribed By: MATIAS 11/25/231748 Dictated By: Jennifer Jon MD 11/25/231744 Signed By: 11/25/231748 Normal [facility] XR knee RT 3V - NOT FOR ER U [facility] 10-15-2023 XR knee RT 3V - NOT FOR ER USE [facility] [address] [place] [address] XRay Report Signed Patient: Nadia Almeida MR#: [id number] : 1945 Acct:[id number] Age/Sex: 77 / F ADM Date: 10/15/23 Loc: [facility] Room: Type: [facility] Attending Dr: Jeevan Sanchez II, MD Copies [...] Ashwin Brown M.D.10/15/2023 3:57 PM Dictation Location: [facility]-07 Transcribed By: MATIAS 10/15/23 155 Dictated By: Ashwin Brown II, MD 10/15/23 155 Signed By: 10/15/23 155 Normal [facility] Automated basophil %Ordered By: Jeevan Sanchez on 07-23-2024 Basophils/100 WBC (Bld) 0.3 % Normal . [facility] Comment on above: Performed By: #### B MP #### [address] Automated basophil countOrde red By: Jeevan Sanchez on 09-02-2023 Basophils (Bld) [#/Vol] 0.0 10*3/uL Normal 0.0-0.2 [facility] Comment on above: Result Comment: PERF ORMED BY: [place] [address] PATHOLOGIST [employer] CAMILO SEBASTIAN M.D. Performed By: #### B MP #### [address] Automated blood monocyte cou ntOrdered By: Jeevan Sanchez on 09-02-2023 Monocytes (Bld) [#/Vol] 0.7 10*3/uL Normal 0.0-0.8 [facility] Comment on above: Performed By: #### B MP #### [address] Automated eosinophil %Ordere d By: Jeevan Sanchez on 09-02-2023 Eosinophils/100 WBC (Bld) 0.8 % Normal . [facility] Comment on above: Performed By: #### B MP #### [address] Automated eosinophil countOr dered By: Jeevan Sanchez on 09-02-2023 Eosinophils (Bld) [#/Vol] 0.1 10*3/uL Normal 0.0-0.45 [facility] Comment on above: Performed By: #### B MP #### [address] Automated monocyte %Ordered By: Jeeavn Sanchez on 09-02-2023 Monocytes/100 WBC (Bld) 6.3 % Normal . [facility] Comment on above: Performed By: #### B MP #### [address] Automated neutrophil %Ordere d By: Jeevan Sanchez on 09-02-2023 Neutrophils/100 WBC (Bld) 77.9 % Normal . [facility] Comment on above: Performed By: #### B MP #### [address] Basic Metabolic Panelon 08-11 Creatinine Clr Calc Pharmacy 62.04 Normal [facility] Comment on above: Result Comment: PERF ORMED BY: [place] [address] PATHOLOGIST [employer] CAMILO SEBASTIAN M.D. Performed By: #### B MP #### [address] GFR/1.73 sq M.predicted MDRD (S/P/Bld) [Vol rate/Area] mL/min/{1.73_m2} Normal [facility] Comment on above: Performed By: #### B MP #### [place] [address] [place] Calcium [Mass/volume] in Ser um or PlasmaOrdered By: Jeevan Sanchez on 09-02-2023 Calcium [Mass/Vol] 8.5 mg/dL Low 8.6-10.3 [facility] Comment on above: Performed By: #### B MP #### [address] Carbon dioxide, total [Moles /volume] in Serum or PlasmaOrdered By: Jeevan Sanchez on 09-02-2023 CO2 [Moles/Vol] 28.5 mmol/L Normal 21.0-31.0 [facility] Comment on above: Performed By: #### B MP #### [place] [address] [place] Chloride [Moles/volume] in S liudmila or PlasmaOrdered By: Jeevan Sanchez on 09-02-2023 Chloride [Moles/Vol] 106 mmol/L Normal 98-107 [facility] Comment on above: Performed By: #### B MP #### [address] Complete Blood Count Auto Di ffon 09-02-2023 Mean Corpuscular HGB Conc 35.3 g/dL High 32.0-35.0 [facility] Comment on above: Performed By: #### B MP #### [address] NRBC% 0.1 /100{WBC} Normal 0-0.5 [facility] Comment on above: Performed By: #### B MP #### [address] Creatinine [Mass/volume] in Serum or PlasmaOrdered By: Jeevan Sanchez on 09-02-2023 Creatinine [Mass/Vol] 0.79 mg/dL Normal 0.60-1.20 [facility] Comment on above: Performed By: #### B MP #### [address] Erythrocyte distribution wid th [Ratio] by Automated countOrdered By: Jeevan Sanchez on 09-02-2023 Erythrocyte distribution width (RBC) [Ratio] 14.0 % Normal 11.9-15.3 [facility] Comment on above: Performed By: #### B MP #### [address] Erythrocytes [#/volume] in B lood by Automated countOrdered By: Jeevan Sanchez on 09-02-2023 RBC (Bld) [#/Vol] 4.09 10*6/uL Normal 3.60-5.00 [facility] Comment on above: Performed By: #### B MP #### [address] Glucose [Mass/volume] in Ser um or PlasmaOrdered By: Jeevan Sanchez on 09-02-2023 Glucose [Mass/Vol] 118 mg/dL High 70-100 [facility] Comment on above: ADA recommended refe rence rangeRandom Glucose Reference Range is dependent on time and content of last meal. Glucose of more than 200 mg/dL in a nonstressed, ambulatory subject supports the diagnosis of Diabetes Mellitus. Result Comment: [place] Glucose Reference Range is dependent on time and content of last meal. Glucose of more than 200 mg/dL in a nonstressed, ambulatory subject supports the diagnosis of Diabetes Mellitus. ADA recommended reference range Performed By: #### B MP #### [address] Hematocrit [Volume Fraction] of Blood by Automated countOrdered By: Jeevan Sanchez on 09-02-2023 Hematocrit (Bld) [Volume fraction] 35.3 % Normal 34.0-46.4 [facility] Comment on above: Performed By: #### B MP #### [address] Hemoglobin [Mass/volume] in BloodOrdered By: Jeevan Sanchez on 09-02-2023 Hemoglobin (Bld) [Mass/Vol] 12.5 g/dL Normal 11.8-15.4 [facility] Comment on above: Performed By: #### B MP #### [address] Leukocytes [#/volume] correc gatito for nucleated erythrocytes in Blood by Automated counOrdered By: Jeevan Sanchez on 09-02-2023 WBC corrected for nucl RBC Auto (Bld) [#/Vol] 10.5 10*3/uL 3.8-11.6 [facility] Leukocytes [#/volume] in Blo od by Automated countOrdered By: Jeevan Sanchez on 09-02-2023 WBC (Bld) [#/Vol] 10.5 10*3/uL Normal 3.8-11.6 [facility] Comment on above: Performed By: #### B MP #### [address] Lymphocytes [#/volume] in Bl ood by Automated countOrdered By: Jeevan Sanchez on 09-02-2023 Lymphocytes (Bld) [#/Vol] 1.5 10*3/uL Normal 1.00-4.8 [facility] Comment on above: Performed By: #### B MP #### [place] [address] [place] Lymphocytes/100 leukocytes i n Blood by Automated countOrdered By: Jeevan Sanchez on 09-02-2023 Lymphocytes/100 WBC (Bld) 14.7 % Normal . [facility] Comment on above: Performed By: #### B MP #### [address] MCH [Entitic mass] by Automa gatito countOrdered By: Jeevan Sanchez on 09-02-2023 MCH (RBC) [Entitic mass] 30.5 pg Normal 24.7-34.3 [facility] Comment on above: Performed By: #### B MP #### [address] MCHC Auto (RBC) [Mass/Vol]Or dered By: Jeevan Sanchez on 09-02-2023 MCHC (RBC) [Mass/Vol] 35.3 g/dL High 32.0-35.0 [facility] MCV [Entitic volume] by Auto mated countOrdered By: Jeevan Sanchez on 09-02-2023 MCV (RBC) [Entitic vol] 86.4 fL Normal 80-100 [facility] Comment on above: Performed By: #### B MP #### [address] Neutrophils [#/volume] in Bl ood by Automated countOrdered By: Jeevan Sanchez on 09-02-2023 Neutrophils (Bld) [#/Vol] 8.2 10*3/uL High 1.8-7.7 [facility] Comment on above: Performed By: #### B MP #### [address] No Panel InformationOrdered By: Jeevan Sanchez on 09-02-2023 Estimated GFR (CKD-EPI) > 60.0 mL/Min [facility] Creatinine Clearance (Chem 62.04 [facility] Nucleated erythrocytes [Pres ence] in Blood by Automated countOrdered By: Jeevan Sanchez on 09-02-2023 Nucleated RBC Auto Ql (Bld) 0.1 /100{WBC} 0-0.5 [facility] Platelet mean volume [Entiti c volume] in Blood by Automated countOrdered By: Jeevan Sanchez on 09-02-2023 Platelet mean volume (Bld) [Entitic vol] 7.0 fL Normal 6.3-10.7 [facility] Comment on above: Performed By: #### B MP #### [address] Platelets [#/volume] in Bloo d by Automated countOrdered By: Jeevan Sanchez on 09-02-2023 Platelets (Bld) [#/Vol] 188 10*3/uL Normal 150-450 [facility] Comment on above: Performed By: #### B MP #### [address] Potassium [Moles/volume] in Serum or PlasmaOrdered By: Jeevan Sanchez on 09-02-2023 Potassium [Moles/Vol] 3.9 mmol/L Normal 3.5-5.1 [facility] Comment on above: Performed By: #### B MP #### [address] Serum or plasma anion gap de terminationOrdered By: Jeevan Sanchez on 09-02-2023 Anion gap [Moles/Vol] 8.4 mmol/L Normal 6.0-15.0 [facility] Comment on above: Performed By: #### B MP #### [address] Sodium [Moles/volume] in Ser um or PlasmaOrdered By: Jeevan Sanchez on 09-02-2023 Sodium [Moles/Vol] 139 mmol/L Normal 136-145 [facility] Comment on above: Performed By: #### B MP #### [place] [address] [place] Urea nitrogen [Mass/volume] in Serum or PlasmaOrdered By: Jeevan Sanchez on 09-02-2023 Urea nitrogen [Mass/Vol] 18 mg/dL Normal 7-25 [facility] Comment on above: Performed By: #### B MP #### [place] [address] [place] ABO/Rh Retypeon 09-01-2023 ABO/RH Recheck Result Negative Normal [facility] Comment on above: Result Comment: PERF ORMED BY: [place] [address] PATHOLOGIST [employer] CAMILO SEBASTIAN M.D. Basic Metabolic Panelon 08-11 Anion gap [Moles/Vol] Not performed Normal 6.0-15.0 [facility] Comment on above: Performed By: #### B MP #### [address] Calcium [Mass/Vol] 8.2 mg/dL Low 8.6-10.3 The [facility] Comment on above: Performed By: #### B MP #### [address] Chloride [Moles/Vol] 108 mmol/L High 98-107 [facility] Comment on above: Performed By: #### B MP #### [address] CO2 [Moles/Vol] 22.5 mmol/L Normal 21.0-31.0 [facility] Comment on above: Performed By: #### B MP #### [address] Creatinine [Mass/Vol] 0.81 mg/dL Normal 0.60-1.20 [facility] Comment on above: Performed By: #### B MP #### [place] [address] [place] Creatinine Clr Calc Pharmacy 58.96 Normal [facility] Comment on above: Result Comment: PERF ORMED BY: [place] [address] PATHOLOGIST [employer] CAMILO SEBASTIAN M.D. Performed By: #### B MP #### [place] [id number] [place] GFR/1.73 sq M.predicted MDRD (S/P/Bld) [Vol rate/Area] mL/min/{1.73_m2} Normal [facility] Comment on above: Performed By: #### B MP #### [facility] [address] Glucose [Mass/Vol] 149 mg/dL High 70-100 [facility] Comment on above: Result Comment: [facility] Glucose Reference Range is dependent on time and content of last meal. Glucose of more than 200 mg/dL in a nonstressed, ambulatory subject supports the diagnosis of Diabetes Mellitus. ADA recommended reference range Performed By: #### B MP #### [facility] [address] Potassium Normal 3.5-5.1 [facility] Comment on above: Result Comment: Spec imen hemolyzed, redraw requested Performed By: #### B MP #### [facility] [address] Sodium Normal 136-145 [facility] Comment on above: Result Comment: Spec imen hemolyzed, redraw requested Performed By: #### B MP #### [facility] [address] Urea nitrogen [Mass/Vol] 16 mg/dL Normal 7-25 [facility] Comment on above: Performed By: #### B MP #### [facility] [address] [place] [id number] [facility] Sebastian 09-01-2023 L Specimen: [id number] Received: 09/01/23 Status: GLENViola Nguyen Num: [id number] Spec Type: Surgical Subm Dr: Jeevan Sanchez MD Tissues: A Joint/Knee (RT KNEE BONE AND TISSUE) Procedures: HE/2, Gross/Micro L4, Decalcification Age/ Patient Sex Location Account Attending Physician Nadia Almeida 77/F [place] [id number] Jeevan Sanchez MD SPEC NUM: [id number] RECD: 09/01/23 STATUS: RIAN ARVIN NUM: [id number] BENI: 09/01/23- SUBM DR: Jeevan Sanchez MD ENTERED: 09/01/[address] [facility] [address]: SPEC TYPE: Surgical DEPT: S ORDERED: [...] bone matrix. A gross photo is included. Newspaper Clipper sections are submitted in A1 (bone following decalcification)-A2 (soft tissue). Specimen: [id number] Received: 09/01/23 Status: RIAN Nguyen Num: [id number] Spec Type: Surgical Subm Dr: Jeevan Sanchez MD Tissues: A Joint/Knee (RT KNEE BONE AND TISSUE) Procedures: HE/2, Gross/Micro L4, Decalcification Patient: Nadia Almeida [id number] (Continued) Specimen: [id number] Received: 09/01/23 (Continued) Signed (signature on file) Ramy De La Cruz Jr., MD 09/03/23 1055 Specimen: [id number] Received: 09/01/23 Status: RIAN Delacruzodalys Num: [id number] Spec Type: Surgical Subm Dr: Jeevan Sanchez MD Tissues: A Joint/Knee (RT KNEE BONE AND TISSUE) Procedures: HE/2, Gross/Micro L4, Decalcification Patient: Nadia Almeida [id number] (Continued) Specimen: [id number] Received: 09/01/23 (Continued) CPT Codes 02151, 40058 BONE AND TISSUE Specimen: [id number] Received: 09/01/23 Status: RIAN Nguyen Num: [id number] Spec Type: Surgical Subm Dr: Jeevan Sanchez MD Tissues: A Joint/Knee (RT KNEE BONE AND TISSUE) Procedures: HE/2, Gross/Micro L4, Decalcification Patient: Nadia Almeida [id number] (Continued) Signed (signature on file) Ramy De La Cruz Jr., MD 09/03/23 1055 Normal [facility] Redraw Potassiumon Potassium [Moles/Vol] 4.2 mmol/L Normal 3.5-5.1 [facility] Comment on above: Result Comment: PERF ORMED BY: [place] [address] PATHOLOGIST [employer] CAMILO SEBASTIAN M.D. Performed By: #### R STEPAN Zhang REDRAW NA #### [address] Redraw Sodiumon 09-01-2023 Sodium [Moles/Vol] 139 mmol/L Normal 136-145 The [facility] Comment on above: Performed By: #### R STEPAN K, REDRAW NA #### [address] XR knee RT 2Von 09-01-2023 XR knee RT 2V [facility] [place] [address] XRay Report Signed Patient: Nadia Almeida MR#: [id number] : 1945 Acct:[id number] Age/Sex: 77 / F ADM Date: 09/01/23 Loc: [place] Room: Type: [facility] Attending Dr: Jeevan Sanchez II, MD Copies to: Jeevan Sanchez MD Ordering Provider: Jeevan Sanchez MD Date of Service: 09/01/23 XR/XR knee RT 2V: S/P TOTAL KNEE RIGHT KNEE - 2 views CLINICAL HISTORY: Postop TKA COMPARISON: Right knee 06/26/2023 FINDINGS: Soft tissues demonstrate postoperative changes. No hardware complication. XR/XR knee RT 2V IMPRESSION: NO HARDWARE COMPLICATION. Impression dictated by: Vinnie Anand Jr., D.OSmomer09/01/2023 1:45 PM Dictation Location: RADIO--15 Transcribed By: [facility] 09/01/23 1345 Dictated By: Vinnie Anand Jr, 09/01/23 1345 Signed By: 09/01/23 1345 Mya [facility] XR tibia fibula RT 2V*on XR tibia fibula RT 2V* [facility] [address] [place] [address] XRay Report Signed Patient: Nadia Almeida MR#: [id number] : 1945 Acct:[id number] Age/Sex: 77 / F ADM Date: 08/21/23 Loc: [facility] Room: Type: [facility] Attending Dr: Jeevan Sanchez II, MD Copies to: Jeevan Sanchez MD Ordering Provider: Jeevan Sanchez MD Date of Service: 08/21/23 XR/XR femur RT 2V*: M17.11 - Unilateral primary osteoarthritis, right knee ([id number]) XR/XR tibia fibula RT 2V*: M17.11 - [...] Jennifer Jon M.D.08/21/2023 4:44 PM Dictation Location: [facility] Transcribed By: MATIAS 08/21/23 1644 Dictated By: Jennifer Jon MD 08/21/23 164 Signed By: 08/21/23 164 Normal [facility] Automated basophil %Ordered By: Jeevan Sanchez on 08-18-2023 Basophils/100 WBC (Bld) 0.6 % Normal . [facility] Comment on above: Performed By: #### B MP #### [address] Automated basophil countOrde red By: Jeevan Sanchez on 08-18-2023 Basophils (Bld) [#/Vol] 0.0 10*3/uL Normal 0.0-0.2 [facility] Comment on above: Result Comment: PERF ORMED BY: [place] [address] PATHOLOGIST [employer] CAMILO SEBASTIAN M.D. Performed By: #### B MP #### [address] Automated blood monocyte cou ntOrdered By: Jeevan Sacnhez on 08-18-2023 Monocytes (Bld) [#/Vol] 0.4 10*3/uL Normal 0.0-0.8 [facility] Comment on above: Performed By: #### B MP #### [address] Automated eosinophil %Ordere d By: Jeevan Sanchez on 08-18-2023 Eosinophils/100 WBC (Bld) 2.9 % Normal . [facility] Comment on above: Performed By: #### B MP #### [address] Automated eosinophil countOr dered By: Jeevan Sanchez on 08-18-2023 Eosinophils (Bld) [#/Vol] 0.2 10*3/uL Normal 0.0-0.45 [facility] Comment on above: Performed By: #### B MP #### [address] Automated monocyte %Ordered By: Jeevan Sanchez on 08-18-2023 Monocytes/100 WBC (Bld) 5.8 % Normal . [facility] Comment on above: Performed By: #### B MP #### [address] Automated neutrophil %Ordere d By: Jeevan Sanchez on 08-18-2023 Neutrophils/100 WBC (Bld) 59.6 % Normal . [facility] Comment on above: Performed By: #### B MP #### [address] Bacteria [Presence] in Urine by AutomatedOrdered By: Jeevan Sanchez on 08-18-2023 Bacteria Auto Ql (U) 4+ [HPF] High None Seen [facility] Basic Metabolic Panelon GFR/1.73 sq M.predicted MDRD (S/P/Bld) [Vol rate/Area] mL/min/{1.73_m2} Normal [facility] Comment on above: Performed By: #### B MP #### [address] Bilirubin Test strip Ql (U)O rdered By: Jeevan Sanchez on 08-18-2023 Bilirubin Ql (U) Negative Negative [facility] Calcium [Mass/volume] in Ser um or PlasmaOrdered By: Jeevan Sanchez on 08-18-2023 Calcium [Mass/Vol] 9.1 mg/dL Normal 8.6-10.3 [facility] Comment on above: Result Comment: PERF ORMED BY: [address] [place] [address] PATHOLOGIST [employer] CAMILO SEBASTIAN M.D. Performed By: #### B MP #### [address] Carbon dioxide, total [Moles /volume] in Serum or PlasmaOrdered By: Jeevan Sanchez on 08-18-2023 CO2 [Moles/Vol] 31.6 mmol/L High 21.0-31.0 [facility] Comment on above: Performed By: #### B MP #### [address] [place] [address] [place] Chloride [Moles/volume] in S liudmila or PlasmaOrdered By: Jeevan Sanchez on 08-18-2023 Chloride [Moles/Vol] 105 mmol/L Normal 98-107 [facility] Comment on above: Performed By: #### B MP #### [address] Color of Urine by AutoOrdere d By: Jeevan Sanchez on 08-18-2023 Color (U) Yellow Normal Yellow [facility] Comment on above: Order Comment: Name Collection Type:: Clean-Voided Midstream Performed By: #### R EDRAW K, REDRAW NA #### [address] Complete Blood Count Auto Di ffon 08-18-2023 Mean Corpuscular HGB Conc 34.6 g/dL Normal 32.0-35.0 [facility] Comment on above: Performed By: #### B MP #### [address] NRBC% 0.1 /100{WBC} Normal 0-0.5 [facility] Comment on above: Performed By: #### B MP #### [address] Creatinine [Mass/volume] in Serum or PlasmaOrdered By: Jeevan Sanchez on 08-18-2023 Creatinine [Mass/Vol] 0.86 mg/dL Normal 0.60-1.20 [facility] Comment on above: Performed By: #### B MP #### [place] [address] [place] Dipstick and Microscopicon 0 08-18-2023 Bacteria,Urine 4+ High None Seen [facility] Comment on above: Order Comment: Name Collection Type:: Clean-Voided Midstream Performed By: #### R EDRAW K, REDRAW NA #### [place] [address] [place] Bilirubin,Urine Negative Normal Negative [facility] Comment on above: Order Comment: Name Collection Type:: Clean-Voided Midstream Performed By: #### R EDRAW K, REDRAW NA #### [address] Glucose Ql (U) Normal Normal Normal [facility] Comment on above: Order Comment: Name Collection Type:: Clean-Voided Midstream Performed By: #### R EDRAW K, REDRAW NA #### [place] [address] [place] Hyaline Casts,Urine None Normal 0-8 [facility] Comment on above: Order Comment: Name Collection Type:: Clean-Voided Midstream Performed By: #### R EDRAW K, REDRAW NA #### [place] [address] [place] Mucus,Urine Rare Normal [facility] Comment on above: Order Comment: Name Collection Type:: Clean-Voided Midstream Result Comment: PERF ORMED BY: [place] [address] PATHOLOGIST [employer] CAMILO SEBASTIAN M.D. Performed By: #### R EDRAW K, REDRAW NA #### [place] [address] [place] Nitrite,Urine Negative Normal Negative [facility] Comment on above: Order Comment: Name Collection Type:: Clean-Voided Midstream Performed By: #### R EDRAW K, REDRAW NA #### [place] [address] [place] Occult Blood,Urine Negative Normal Negative [facility] Comment on above: Order Comment: Name Collection Type:: Clean-Voided Midstream Result Comment: PERF ORMED BY: [place] [address] PATHOLOGIST [employer] CAMILO SEBASTIAN M.D. Performed By: #### R EDRAW K, REDRAW NA #### [place] [address] [place] Protein,Urine Negative Normal Negative [facility] Comment on above: Order Comment: Name Collection Type:: Clean-Voided Midstream Performed By: #### R EDRAW K, REDRAW NA #### [facility] [address] [place] [address] [place] RBC,Urine 1-2 Normal 0-4 [facility] Comment on above: Order Comment: Name Collection Type:: Clean-Voided Midstream Performed By: #### R EDRAW K, REDRAW NA #### [place] [address] [place] Specificy [place],Urine 1.022 Normal 1.001-1.03 0 [facility] Comment on above: Order Comment: Name Collection Type:: Clean-Voided Midstream Performed By: #### R EDRAW K, REDRAW NA #### [place] [address] [place] Squamous Epithelial Cell,Urine 1-2 Normal 0-2 [facility] Comment on above: Order Comment: Name Collection Type:: Clean-Voided Midstream Performed By: #### R EDRAW K, REDRAW NA #### [place] [address] [place] Urobilinogen,Urine Normal Normal Normal [facility] Comment on above: Order Comment: Name Collection Type:: Clean-Voided Midstream Performed By: #### R EDRAW K, REDRAW NA #### [facility] [address] [place] [address] [place] WBC,Urine 5-9 High 0-4 [facility] Comment on above: Order Comment: Name Collection Type:: Clean-Voided Midstream Performed By: #### R EDRAW K, REDRAW NA #### [facility] [address] [place] [address] [place] ECG 12 lead ECGon 08-18-2023 ECG 12 lead ECG [facility] [place] [address] Electrocardiograph Report Signed Patient: Nadia Almeida MR#: [id number] : 1945 Acct:[id number] Age/Sex: 77 / F ADM Date: 08/18/23 Loc: [place] Room: Type: [facility] Attending Dr: Jeevan Sanchez II, MD Ordering [...] previous ECGs available Confirmed by SOREN ALVARADO FACC, NERY ([id number]) on 08/18/2023 12:04:10 PM Referred By: DANIEL Electronically Signed By:NERY DOTY MD FACC Transcribed By: BEATRICE Signed By Nery Doty MD, FACC 08/18/23 1204 Normal [facility] Epithelial cells.squamous [# /area] in Urine sediment by Automated countOrdered By: Jeevan Sanchez on 08-18-2023 Epithelial cells.squamous Auto (Urine sed) [#/Area] 1-2 [HPF] 0-2 [facility] Erythrocyte distribution wid th [Ratio] by Automated countOrdered By: Jeevan Sanchez on 08-18-2023 Erythrocyte distribution width (RBC) [Ratio] 13.9 % Normal 11.9-15.3 [facility] Comment on above: Performed By: #### B MP #### [address] Erythrocytes [#/area] in Uri ne sediment by Automated countOrdered By: Jeevan Sanchez on 08-18-2023 RBC Auto (Urine sed) [#/Area] 1-2 [HPF] 0-4 [facility] Erythrocytes [#/volume] in B lood by Automated countOrdered By: Jeevan Sanchez on 08-18-2023 RBC (Bld) [#/Vol] 4.50 10*6/uL Normal 3.60-5.00 [facility] Comment on above: Performed By: #### B MP #### [place] [id number] [place] Fructosamineon 08-18-2023 Fructosamine 244 umol/L Normal 0-285 [facility] Comment on above: Result Comment: Publ ished reference interval for apparently healthy subjects between age 20 and 60 is 205 - 285 umol/L and in a poorly controlled diabetic population is 228 - 563 umol/L with a mean of 396 umol/L. Performed at: - [facility] [id number] [place], [place] [id number] Rate Clerk: Kendell Teague PhD, Phone: [phone] PERFORMED BY: [place] [address] PATHOLOGIST [employer] CAMILO SEBASTIAN M.D. Performed By: #### B MP #### [address] Fructosamine [Moles/volume] in Serum or PlasmaOrdered By: Jeevan Sanchez on 08-18-2023 Fructosamine [Moles/Vol] 244 umol/L 0-285 [facility] Comment on above: Published reference interval for apparently healthysubjects between age 20 and 60 is 205 - 285 umol/L and in apoorly controlled diabetic population is 228 - 563 umol/Lwith a mean of 396 umol/L.Performed at: - [facility] [id number] Director: Kendell Teague PhD, Phone: [phone] Glucose [Mass/volume] in Ser um or PlasmaOrdered By: Jeevan Sanchez on 08-18-2023 Glucose [Mass/Vol] 109 mg/dL High 70-100 [facility] Comment on above: ADA recommended refe rence rangeRandom Glucose Reference Range is dependent on time and content of last meal. Glucose of more than 200 mg/dL in a nonstressed, ambulatory subject supports the diagnosis of Diabetes Mellitus. Result Comment: [place] Glucose Reference Range is dependent on time and content of last meal. Glucose of more than 200 mg/dL in a nonstressed, ambulatory subject supports the diagnosis of Diabetes Mellitus. ADA recommended reference range Performed By: #### B MP #### [facility] [address] Glucose [Mass/volume] in Uri ne by Test stripOrdered By: Jeevan Sanchez on 08-18-2023 Glucose Test strip (U) [Mass/Vol] Normal mg/dL Normal [facility] Hematocrit [Volume Fraction] of Blood by Automated countOrdered By: Jeevan Sanchez on 08-18-2023 Hematocrit (Bld) [Volume fraction] 39.4 % Normal 34.0-46.4 [facility] Comment on above: Performed By: #### B MP #### [address] Hemoglobin Test strip Ql (U) Ordered By: Jeevan Sanchez on 08-18-2023 Hemoglobin Ql (U) Negative Negative [facility] Hemoglobin [Mass/volume] in BloodOrdered By: Jeevan Sanchez on 08-18-2023 Hemoglobin (Bld) [Mass/Vol] 13.6 g/dL Normal 11.8-15.4 [facility] Comment on above: Performed By: #### B MP #### [place] [address] [place] Hyaline casts [#/area] in Ur ine sediment by Automated countOrdered By: Jeevan Sanchez on 08-18-2023 Hyaline casts Auto (Urine sed) [#/Area] None [LPF] 0-8 [facility] Ketones [Presence] in Urine by Test stripOrdered By: Jeevan Sanchez on 08-18-2023 Ketones Ql (U) Negative Normal Negative [facility] Comment on above: Order Comment: Name Collection Type:: Clean-Voided Midstream Performed By: #### R LASHAWN MACIAS #### [place] [address] [place] Leukocyte esterase [Presence ] in Urine by Test stripOrdered By: Jeevan Sanchez on 08-18-2023 Leukocyte esterase Test strip Ql (U) 1+ High Negative [facility] Comment on above: Order Comment: Name Collection Type:: Clean-Voided Midstream Performed By: #### R LASHAWN MACIAS NA #### [place] [address] [place] Leukocytes [#/area] in Urine sediment by Automated countOrdered By: Jeevan Sanchez on 08-18-2023 WBC Auto (Urine sed) [#/Area] 5-9 [HPF] High 0-4 [facility] Leukocytes [#/volume] correc gatito for nucleated erythrocytes in Blood by Automated counOrdered By: Jeevan Sanchez on 08-18-2023 WBC corrected for nucl RBC Auto (Bld) [#/Vol] 7.6 10*3/uL 3.8-11.6 [facility] Leukocytes [#/volume] in Blo od by Automated countOrdered By: Jeevan Sanchez on 08-18-2023 WBC (Bld) [#/Vol] 7.6 10*3/uL Normal 3.8-11.6 [facility] Comment on above: Performed By: #### B MP #### [place] [address] [place] Lymphocytes [#/volume] in Bl ood by Automated countOrdered By: Jeevan Sanchez on 08-18-2023 Lymphocytes (Bld) [#/Vol] 2.4 10*3/uL Normal 1.00-4.8 [facility] Comment on above: Performed By: #### B MP #### [place] [address] [place] Lymphocytes/100 leukocytes i n Blood by Automated countOrdered By: Jeevan Sanchez on 08-18-2023 Lymphocytes/100 WBC (Bld) 31.1 % Normal . [facility] Comment on above: Performed By: #### B MP #### [place] [address] [place] MCH [Entitic mass] by Automa gatito countOrdered By: Jeevan Sanchez on 08-18-2023 MCH (RBC) [Entitic mass] 30.3 pg Normal 24.7-34.3 [facility] Comment on above: Performed By: #### B MP #### [address] MCHC Auto (RBC) [Mass/Vol]Or dered By: Jeevan Sanchez on 08-18-2023 MCHC (RBC) [Mass/Vol] 34.6 g/dL 32.0-35.0 [facility] MCV [Entitic volume] by Auto mated countOrdered By: Jeevan Sanchez on 08-18-2023 MCV (RBC) [Entitic vol] 87.6 fL Normal 80-100 [facility] Comment on above: Performed By: #### B MP #### [facility] [address] Mucus [Presence] in Urine by AutomatedOrdered By: Jeevan Sanchez on 08-18-2023 Mucus Auto Ql (U) Rare [LPF] [facility] Neutrophils [#/volume] in Bl ood by Automated countOrdered By: Jeevan Sanchez on 08-18-2023 Neutrophils (Bld) [#/Vol] 4.6 10*3/uL Normal 1.8-7.7 [facility] Comment on above: Performed By: #### B MP #### [facility] [address] Nitrite Test strip Ql (U)Ord ered By: Jeevan Sanchez on 08-18-2023 Nitrite Ql (U) Negative Negative [facility] No Panel InformationOrdered By: Jeevan Sanchez on 08-18-2023 Estimated GFR (CKD-EPI) > 60.0 mL/Min [facility] Creatinine Clearance (Chem N/A [facility] Nucleated erythrocytes [Pres ence] in Blood by Automated countOrdered By: Jeevan Sanchez on 08-18-2023 Nucleated RBC Auto Ql (Bld) 0.1 /100{WBC} 0-0.5 [facility] PST Type and Screenon 2023 ABO and Rh group Nom (Bld) Blood group B Rh(D) negative Normal [facility] Comment on above: Order Comment: Date of Surgery: [id number] Result Comment: PERF ORMED BY: [place] [address] PATHOLOGIST [employer]OR[employer] CAMILO SEBASTIAN M.D. Platelet mean volume [Entiti c volume] in Blood by Automated countOrdered By: Jeevan Sanchez on 08-18-2023 Platelet mean volume (Bld) [Entitic vol] 7.0 fL Normal 6.3-10.7 [facility] Comment on above: Performed By: #### B MP #### [place] [address] [place] Platelets [#/volume] in Bloo d by Automated countOrdered By: Jeevan Sanchez on 08-18-2023 Platelets (Bld) [#/Vol] 202 10*3/uL Normal 150-450 [facility] Comment on above: Performed By: #### B MP #### [place] [address] [place] Potassium [Moles/volume] in Serum or PlasmaOrdered By: Jeevan Sanchez on 08-18-2023 Potassium [Moles/Vol] 4.1 mmol/L Normal 3.5-5.1 [facility] Comment on above: Performed By: #### B MP #### [address] Protein Test strip (U) [Mass /Vol]Ordered By: Jeevan Sanchez on 08-18-2023 Protein (U) [Mass/Vol] Negative Negative [facility] Serum or plasma anion gap de terminationOrdered By: Jeevan Sanchez on 08-18-2023 Anion gap [Moles/Vol] 9.5 mmol/L Normal 6.0-15.0 [facility] Comment on above: Performed By: #### B MP #### [place] [address] [place] Sodium [Moles/volume] in Ser um or PlasmaOrdered By: Jeevan Sanchez on 08-18-2023 Sodium [Moles/Vol] 142 mmol/L Normal 136-145 [facility] Comment on above: Performed By: #### B MP #### [place] [address] [place] Specific gravity Test strip (U) [Rel density]Ordered By: Jeevan Sanchez on 08-18-2023 Specific gravity (U) [Rel density] 1.022 1.001-1.03 0 [facility] Urea nitrogen [Mass/volume] in Serum or PlasmaOrdered By: Jeevan Sanchez on 08-18-2023 Urea nitrogen [Mass/Vol] 19 mg/dL Normal 7-25 [facility] Comment on above: Performed By: #### B #### [address] Urine Cultureon 08-18-2023 Bacteria identified Cx Nom (U) ORGANISM: Escherichia coli (O:ESCCOL) Lynco Count 50,000 Aerobic FRANK Charge (NMIC56) SUSCEPTIBILITY [...] <4 Tigecycline S <2 Tobramycin S <2 Trimethoprim/Sulfamethoxaz ole S <0.5 S = SUSCEPTIBLE I = [...] RESISTANT TO ALL B-LACTAM DRUGS. PERFORMED BY: [place] [address] PATHOLOGIST [employer] LABORER CAMILO SEBASTIAN M.D. Normal [facility] Comment on above: Performed By: #### R CAROLANN MACIASW NA #### [address] Urine appearanceOrdered By: Jeevan Sanchez on 08-18-2023 Appearance (U) Clear Normal Clear [facility] Comment on above: Order Comment: Name Collection Type:: Clean-Voided Midstream Performed By: #### R STEPAN Zhang REDRAW NA #### [address] Urine culture routineOrdered By: Jeevan Sanchez on 08-18-2023 Bacteria identified Cx Nom (U) Escherichia coli Abnormal [facility] Urobilinogen Test strip (U) [Mass/Vol]Ordered By: Jeevan Sanchez on 08-18-2023 Urobilinogen (U) [Mass/Vol] Normal mg/dL Normal [facility] pH of Urine by Test stripOrd ered By: Jeevan Sanchez on 08-18-2023 pH (U) 5.0 [pH] Normal 5.0-9.0 [facility] Comment on above: Order Comment: Name Collection Type:: Clean-Voided Midstream Performed By: #### R STEPAN Zhang REDRAW NA #### [address] A1C with Estimated Average G luon 07-17-2023 Glucose [Mass/Vol] 97 mg/dL Normal [facility] Comment on above: Result Comment: PERF ORMED BY: [place] [address] PATHOLOGIST [employer] CAMILO SEBASTIAN M.D. Performed By: #### C UMRSA, A1C WTH eA, ALB, HGB, [id number] #### [address] #### NICOTINE #### [facility] , Albumin Levelon 07-17-2023 Albumin [Mass/Vol] 4.2 g/dL Normal 3.5-5.7 [facility] Pending sale to [facility] Comment on above: Performed By: #### C UMRSA, A1C WTH eA, ALB, HGB, [id number] #### [facility] [address] #### NICOTINE #### [facility] , Albumin [Mass/volume] in Ser um or Plasma by Bromocresol green (BCG) dye binding methoOrdered By: Jeevan Sanchez on 07-17-2023 Albumin BCG dye [Mass/Vol] 4.2 g/dL 3.5-5.7 [facility] Cotinine [Mass/volume] in Se rum or PlasmaOrdered By: Jeevan Sanchez on 07-17-2023 Cotinine [Mass/Vol] <1.0 ng/mL . [facility] Comment on above: This test was develo ped and its performance characteristicsdetermined by [facility]. It has not been cleared orapproved by the Food and Drug Administration.Cotinine levels greater than 20.0 are consistent with theuse of tobacco or tobacco cessation products.Performed at: [facility] [id number] Director: Evette Bryan MD, Phone: [phone] Glucose mean value [Mass/vol ume] in Blood Estimated from glycated hemoglobinOrdered By: Jeevan Sanchez on 07-17-2023 Average glucose Estimated from glycated hemoglobin (Bld) [Mass/Vol] 97 mg/dL [facility] Hemoglobin A1c percentageOrd ered By: Jeevan Sanchez on 07-17-2023 HbA1c (Bld) [Mass fraction] 5.0 % Normal 4.3-5.6 [facility] Comment on above: Increased risk for d iabetes: 5.7 - 6.4diabetes: >6.4glycemic control for adults with diabetes: <7.0 Result Comment: Incr eased risk for diabetes: 5.7 - 6.4 diabetes: >6.4 glycemic control for adults with diabetes: <7.0 Performed By: #### C UMRSA, A1C WTH eA, ALB, HGB, [id number] #### [address] #### NICOTINE #### [facility] , Hemoglobin [Mass/volume] in BloodOrdered By: Jeevan Sanchez on 07-17-2023 Hemoglobin (Bld) [Mass/Vol] 13.5 g/dL Normal 11.8-15.4 [facility] Comment on above: Result Comment: PERF ORMED BY: [place] [address] PATHOLOGIST [employer]ER CAMILO SEBASTIAN M.D. Performed By: #### C UMRSA, A1C WTH eA, ALB, HGB, [id number] #### [address] #### NICOTINE #### [facility] , MRSA Cultureon 07-17-2023 MRSA Culture No MRSA Isolated 2 D ays PERFORMED BY: [place] [address] PATHOLOGIST [employer] LABORER CAMILO SEBASTIAN M.D. Normal [facility] Comment on above: Performed By: #### C UMRSA, A1C WTH eA, ALB, HGB, [id number] #### [address] #### NICOTINE #### [facility] , Nicotine [Mass/volume] in Se rum or PlasmaOrdered By: Jeevan Sanchez on 07-17-2023 Nicotine [Mass/Vol] <1.0 ng/mL . [facility] Comment on above: This test was develo ped and its performance characteristicsdetermined by [facility]. It has not been cleared orapproved by the Food and Drug Administration.Nicotine levels greater than 2.0 are consistent with theuse of tobacco or tobacco cessation products. Nicotine/Cotinine Bloodon Cotinine, Blood <1.0 Normal . [facility] Comment on above: Result Comment: This test was developed and its performance characteristics determined by [facility]. It has not been cleared or approved by the Food and Drug Administration. Cotinine levels greater than 20.0 are consistent with the use of tobacco or tobacco cessation products. Performed at: - [address] [id number] Rate Clerk: Evette Bryan MD, Phone: [phone] PERFORMED BY: [place] [address] PATHOLOGIST [employer] LABORER CAMILO SEBASTIAN M.D. Performed By: #### B MP #### [address] Nicotine, Blood <1.0 Normal . [facility] Comment on above: Result Comment: This test was developed and its performance characteristics determined by [facility]. It has not been cleared or approved by the Food and Drug Administration. Nicotine levels greater than 2.0 are consistent with the use of tobacco or tobacco cessation products. Performed By: #### B MP #### [address] Vitamin D 25 Hydroxy Totalon 07-17-2023 Vitamin D 25 Hydroxy Total 75.8 ng/mL Normal 30-100 [facility] Comment on above: Result Comment: MALGORZATA MIN D STATUS 25(OH)VITAMIN D RANGE (ng/mL) Deficient <20 Insufficient 20 to <30 Sufficient 30 to 100 Reference: Judy MF,Roberto NC, Kae CELESTE, et al. Evaluation,treatment, and prevention of vitamin D deficiency; an Endocrine Society clinical practice guideline. JCEM. 2010; 96(7):1911-30. PERFORMED BY: [place] [address] PATHOLOGIST [employer]EEPER LABORER CAMILO SEBASTIAN M.D. Performed By: #### C UMRSA, A1C WTH eA, ALB, HGB, [id number] #### [place] [address] [place] #### NICOTINE #### [facility] , Vitamin D+Metabolites [Mass/ volume] in Serum or PlasmaOrdered By: Jeevan Sanchez on 07-17-2023 Vitamin D+Metabolites [Mass/Vol] 75.8 ng/mL 30-100 [facility] Comment on above: VITAMIN D STATUS 25( [place])VITAMIN D RANGE (ng/mL) Deficient <20 Insufficient 20 to <30Sufficient 30 to 100Reference: Judy MF,Roberto NC, Kae CELESTE, et al. Evaluation,treatment, and prevention of vitamin D deficiency; an Endocrine Society clinical practice guideline. JCEM. 2010; 96(7):1911-30. Wound methicillin resistant Staphylococcus aureus (MRSA) cultureOrdered By: Jeevan Sanchez on 07-17-2023 MRSA isol Org specific cx Ql (Unsp spec) No MRSA Isolated 2 Days [facility] XR hip LT min 2V(w/wo pelvis )*on 06-26-2023 XR hip LT min 2V(w/wo pelvis)* [facility] [address] [place] [address] XRay Report Signed Patient: Nadia Almeida MR#: [id number] : 1945 Acct:[id number] Age/Sex: 77 / F ADM Date: 06/26/23 Loc: [facility] Room: Type: [facility] Attending Dr: Jeevan Sanchez II, MD Copies [...] 160 Signed By: 06/26/23 160 Normal [facility] XR knee RT 4V*on 06-26-2023 XR knee RT 4V* [facility] [address] [place] [address] XRay Report Signed Patient: Nadia Almeida MR#: [id number] : 1945 Acct:[id number] Age/Sex: 77 / F ADM Date: 06/26/23 Loc: [facility] Room: Type: [facility] Attending Dr: Jeevan Sanchez II, MD Copies [...] 1559 Signed By: 06/26/23 160 Normal [facility] CNOVSPon 06-10-2022 CNOVSP Visit (SP) Office (Abhijeet DIMAS) -- NADIA ALMEIDA ([id number]) 1945 F Date Time Provider Department 06/10/22 10:30 AM GARRETT BELTÁRN During your visit today, we recorded the following information about you: Temperature Pulse Respiration Blood pressure 97.4 degrees 68/minute 16/minute 133/63 Weight Height 80.7 kg 1.68 m Garrett Beltrán MD 06/16/2022 4:20 PM Signed NAME: Nadia Almeida CLINIC NO.: [id number] DATE OF SERVICE: June 10, 2022 (Benny) Some elements in this clinic note that are critical to medical decision making have been carefully reviewed and included from a prior clinic note dated: June 04, 2021 Referring Provider: Shaw Francois II CC: Right breast cancer ER/NM positive, HER-2/crescencio negative diagnosed May 2011. ASSESSMENT: [...] ductal carcinoma with DCIS. Receptor status ER NM positive. HER-2/crescencio was negative. [place] lymph nodes were negative. 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 Xqbhgbqoftbin-Xinrvmjm-Gho ein (CENTRUM SILVER) tab Take 1 tablet by mouth once daily. RANITIDINE HCL (ZANTAC ORAL) Take by mouth. (Patient not taking: Reported on 06/10/2022) LABORATORY VALUES: WBC (k/uL) Date Value 06/04/2021 6.65 RBC (m/uL) Date Value 06/04/2021 4.61 Hemoglobin (g/dL) Date Value 06/04/2021 (more content not included)... Normal [facility] MG MAMM SCREEN LT 3D CADon 0 06-03-2022 MG MAMM SCREEN LT 3D CAD Patient: NADIA ALMEIDA Exam Date: 06/03/2022 : 1945 Gender:F Ordering : DR. GARRETT BELTRÁN M.D. Admission #: [id number] Family : DR SHAW FRANCOIS M.D. Order #: [id number] CLICK HERE TO VIEW EXAM RADIOLOGY REPORT [...] breast cancer at age 38. LOCATION: [facility] BREAST COMPOSITION: Scattered areas fibroglandular density. [...] MD on 06/03/2022 at 11:55 Normal [facility] COVID-19 Positive/NegativeOr dered By: Naya Weber on 05-21-2021 SARS-CoV-2 (COVID-19) N gene ALBINA+probe Ql (Resp) Negative Negative [facility] Comment on above: Testing for SARS-CoV -2 by RT-PCRThis test was developed and its performance characteristics determined by [employer] ([employer]) and validated at the [facility]. This test has not been FDA [...] C-Reactive Proteinon 022 CRP IV <0.3 Normal [facility] Techn[facility] Comment on above: Performed By: #### C BC, CRP, ESR, RF, CMP, URIC #### [facility] [address] [place], [place] [id number] Complete Blood Counton 04-25 Erythrocyte distribution width (RBC) [Ratio] 12.8 % Normal 11.0-15.0 [facility] Comment on above: Performed By: #### C BC, CRP, ESR, RF, CMP, URIC #### [facility] [address] [place], [place] [id number] Hematocrit (Bld) [Volume fraction] 43.7 % Normal 35.0-47.0 [facility] Techn[facility] Comment on above: Performed By: #### C BC, CRP, ESR, RF, CMP, URIC #### [facility] [address] [place], [place] [id number] Hemoglobin (Bld) [Mass/Vol] 14.5 g/dL Normal 11.6-15.5 [place] [facility] Comment on above: Performed By: #### C BC, CRP, ESR, RF, CMP, URIC #### [facility] [address] [place], [place] [id number] MCH (RBC) [Entitic mass] 29.5 pg Normal 27.0-33.0 [facility] Comment on above: Performed By: #### C BC, CRP, ESR, RF, CMP, URIC #### [facility] [address] [place], [place] [id number] MCHC (RBC) [Mass/Vol] 33.2 g/dL Normal 32.0-36.0 [facility] Comment on above: Performed By: #### C BC, CRP, ESR, RF, CMP, URIC #### [facility] [address] [place], [place] [id number] MCV (RBC) [Entitic vol] 89 fL Normal 80-100 [facility] Comment on above: Performed By: #### C BC, CRP, ESR, RF, CMP, URIC #### [facility] [address] [place], [place] [id number] Platelet mean volume (Bld) [Entitic vol] 9.00 fL Normal 7.50-12.50 [facility] Comment on above: Performed By: #### C BC, CRP, ESR, RF, CMP, URIC #### [facility] [address] [place], [place] [id number] Platelets (Bld) [#/Vol] 201 10*3/uL Normal 140-400 [facility] Comment on above: Performed By: #### C BC, CRP, ESR, RF, CMP, URIC #### [facility] [address] [place], [place] [id number] RBC (Bld) [#/Vol] 4.92 10*6/uL Normal 3.90-5.20 [facility] Comment on above: Performed By: #### C BC, CRP, ESR, RF, CMP, URIC #### [facility] [address] [place], [place] [id number] RDW-SD 41.6 fL Normal 37.0-50.0 [facility] Comment on above: Performed By: #### C BC, CRP, ESR, RF, CMP, URIC #### [facility] [address] [place], [place] [id number] WBC (Bld) [#/Vol] 7.3 10*3/uL Normal 3.8-11.0 Lilian rn [place] [facility] Techn[facility] Comment on above: Performed By: #### C BC, CRP, ESR, RF, CMP, URIC #### [facility] [address] [place], [place] [id number] Comprehensive Metabolic Pane sebastian 04-25-2021 Albumin [Mass/Vol] 4.5 g/dL Normal 3.6-5.1 Lilian rn [place] [facility] Techn[facility] Comment on above: Performed By: #### C BC, CRP, ESR, RF, CMP, URIC #### [facility] [address] [place], [place] [id number] Albumin/Globulin [Mass ratio] 2.1 {ratio} Normal 1.0-2.5 [facility] Technologist Comment on above: Performed By: #### C BC, CRP, ESR, RF, CMP, URIC #### [facility] [address] [place], [place] [id number] ALP [Catalytic activity/Vol] 64 U/L Normal 35-119 [facility] Comment on above: Performed By: #### C BC, CRP, ESR, RF, CMP, URIC #### [facility] [address] [place], [place] [id number] ALT [Catalytic activity/Vol] 12 U/L Normal 6-33 [facility] Comment on above: Result Comment: 01/10 Female reference range changed. Performed By: #### C BC, CRP, ESR, RF, CMP, URIC #### [facility] [address] [facility] [place] [id number] Anion gap [Moles/Vol] 17 mmol/L Normal 12-20 [facility] Comment on above: Result Comment: Effe ctive 02/15/2019 reference range changed. Performed By: #### C BC, CRP, ESR, RF, CMP, URIC #### [facility] [address] [facility] [place] [id number] AST [Catalytic activity/Vol] 14 U/L Normal 9-34 [place] Molecular Technologist Comment on above: Performed By: #### C BC, CRP, ESR, RF, CMP, URIC #### [facility] [address] [place], [place] [id number] Bilirubin [Mass/Vol] 0.67 mg/dL Normal 0.30-1.20 [facility] Comment on above: Performed By: #### C BC, CRP, ESR, RF, CMP, URIC #### [facility] [address] [place], [place] [id number] BUN/CREA 22 Ratio Normal 6-22 [facility] Comment on above: Performed By: #### C BC, CRP, ESR, RF, CMP, URIC #### [facility] [address] [place], [place] [id number] Calcium [Mass/Vol] 9.2 mg/dL Normal 8.6-10.2 [facility] Comment on above: Performed By: #### C BC, CRP, ESR, RF, CMP, URIC #### [facility] [address] [place], [place] [id number] Chloride [Moles/Vol] 104 mmol/L Normal 98-107 [facility] Comment on above: Performed By: #### C BC, CRP, ESR, RF, CMP, URIC #### [facility] [address] [place], [place] [id number] CO2 [Moles/Vol] 24 mmol/L Normal 20-31 [facility] Comment on above: Performed By: #### C BC, CRP, ESR, RF, CMP, URIC #### [facility] [address] [place], [place] [id number] Creatinine [Mass/Vol] 0.7 mg/dL Normal 0.6-1.4 [facility] Comment on above: Performed By: #### C BC, CRP, ESR, RF, CMP, URIC #### [facility] [address] [place], [place] [id number] eGFRAA 95 mL/min/1.73m2 Normal >60 [facility] Comment on above: Performed By: #### C BC, CRP, ESR, RF, CMP, URIC #### [facility] [address] [place], [place] [id number] eGFRNAA 79 mL/min/1.73m2 Normal >60 [facility] Molecular Technologist Comment on above: Performed By: #### C BC, CRP, ESR, RF, CMP, URIC #### [facility] [address] [place], [place] [id number] Globulin (S) [Mass/Vol] 2.1 g/dL Normal 1.9-3.7 [facility] Molecular Technologist Comment on above: Performed By: #### C BC, CRP, ESR, RF, CMP, URIC #### [facility] [address] [place], [place] [id number] Glucose [Mass/Vol] 98 mg/dL Normal 65-99 Lilian prabhakar [place] Molecular Technologist Comment on above: Result Comment: For FASTING Glucose --- ADA reference ranges: Normal 65-99 mg/dl Prediabetes 100-125 Diabetes >/= 126 Performed By: #### C BC, CRP, ESR, RF, CMP, URIC #### [facility] [address] [place], [place] [id number] Potassium [Moles/Vol] 4.2 mmol/L Normal 3.5-5.5 [facility] Comment on above: Performed By: #### C BC, CRP, ESR, RF, CMP, URIC #### [facility] [address] [place], [place] [id number] Protein [Mass/Vol] 6.6 g/dL Normal 6.1-8.1 Lilian [facility] Molecular Technologist Comment on above: Performed By: #### C BC, CRP, ESR, RF, CMP, URIC #### [facility] [address] [place], [place] [id number] Sodium [Moles/Vol] 141 mmol/L Normal 135-146 Lilian prabhakar [place] Molecular Technologist Comment on above: Performed By: #### C BC, CRP, ESR, RF, CMP, URIC #### [facility] [address] [place], [place] [id number] Urea nitrogen [Mass/Vol] 16 mg/dL Normal 7-25 [facility] Molecular Technologist Comment on above: Performed By: #### C BC, CRP, ESR, RF, CMP, URIC #### [facility] [address] [place], [place] [id number] Q - CARRIE MULTIPLEX W/ REFLEX TO 11 ANTIBODY CASCADEon 04-25-2021 ANACHOICE(R) SCREEN Negative Normal NEGATIVE [facility] Comment on above: Order Comment: [facility] performed at: [employer], [employer], [address] [facility] [address], [address] [address], [place], [address], [employer]: Joe Hickey MD [facility] Collection Date/Time: [facility] Results Received Date/Time: [facility] Reported Date/Time: Result Comment: A ne gative CARRIE Multiplex, with Reflex to 11 Antibody [place] indicates the absence of detectable antibodies to component analytes consisting of double stranded DNA (dsDNA), chromatin, ribonucleoprotein (C CONSULTANT), Boyd/C CONSULTANT (Sm/C CONSULTANT), Boyd (Sm), SS-A, SS-B, Ruma-1, centromere B, Scl-70 and ribosomal P. A negative result should be interpreted in the context of the clinical and laboratory findings and does not rule out autoimmune disease characterized by other autoantibody specificities such as rheumatoid arthritis, autoimmune hepatitis, primary biliary cirrhosis, autoimmune thyroiditis, [place]'s disease, pernicious anemia, autoimmune neuropathies, vasculitis, celiac disease, and bullous disease. For additional information, please refer to http://[email or web address] Mobile.ulike/faq/FNU845 (This link is being provided for informational/ educational purposes only.) Performed By: #### 1 [id number] #### [facility] [address] [place] [address] RBC Sedimentation Rateon ESR (Bld) [Velocity] 7.00 mm/h Normal 0.00-30.00 [facility] Comment on above: Performed By: #### C BC, CRP, ESR, RF, CMP, URIC #### [facility] [address], [place] [id number] Rheumatoid Factoron 04-26-19 22 RF <10 Normal [facility] Comment on above: Performed By: #### C BC, CRP, ESR, RF, CMP, URIC #### [facility] [address] [place], [place] [id number] Uric Acidon 04-25-2021 URIC 4.8 mg/dL Normal 2.5-7.0 [facility] Technologist Comment on above: Result Comment: Refe rence range change 12/27/2016. Prior reference range F 2.4-5.7mg/dL. M 3.4-7.0 mg/dL. Performed By: #### C BC, CRP, ESR, RF, CMP, URIC #### [facility] [address] [place] [id number] [facility] 10-03-2019 CNPN Telephone (FVPRAD) -- NADIA ALMEIDA ( ) 1945 F Date Time Provider Department 10/03/19 KENNEDY GALAN FVKYAW During your visit today, we recorded the following information about you: Kennedy Galan MD 10/03/2019 1:30 PM Signed Please call the patient and pass on the Mango message I wrote today to her (in case she does not check my chart). Please send a copy of her CT chest to Dr Beltrán's office with a request to follow-up on the thyroid, kidney and breast abnormalities. Thank you, Kennedy Bruce LPN 10/04/2019 8:[address] Mckeon is with [facility] in [place]. LVM with office triage nurse to have [...] 1 tablet by mouth once d* * [id number] IN * Take 1 tablet by mouth once d* Problem List As Of Date 10/03/2019 Noted Resolved Breast cancer, right breast [C50.911] 04/19/2011 Osteopenia [M85.80] 07/27/2013 Encounter Status:Closed by SAMANTHA ZACARIAS LPN on 11/15/19 [facility] CT CHEST WO IVCONon 09-28-19 CT CHEST WO IVCON * * *Final Report* * * * * * SEE BOTTOM OF REPORT FOR ADDENDED TEXT * * * DATE OF EXAM: Sep 28 2019 9:28AM [facility] 0541 - CT CHEST WO IVCON / PROCEDURE REASON: Shortness of breath * * * * Physician Interpretation * * * * * * * * * * * * ORIGINAL REPORT * * * * * * * * EXAMINATION: CHEST CT WITHOUT CONTRAST CLINICAL HISTORY: History of right breast cancer in 2012 status post mastectomy and hormonal therapy. ?No [...] can be further evaluated with renal ultrasound. Health Support Specialist (topogram) images: No additional findings. IMPRESSION: NO [...] in a patient with INSERT MEDICAL REASON. [employer] 2015 * * * * * * * * ADDENDUM #1 * * * * * * * * COMPARISON: Chest x-rays dated 07/02/2019, 04/17/2011; outside left screening mammogram dated 04/05/2019 Full Stack Java Developer: ZAFAR Transcribe Date/Time: Sep 28 2019 10:35A Dictated by : BILLIE EISENBERG MD This examination was interpreted and the report reviewed and electronically signed by: BILLIE EISENBERG MD on Sep 28 2019 9:50AM EST This document has been addended by: BILLIE EISENBERG MD on Sep 28 2019 10:36AM EST [id number] [facility] GI FLUORO CHEST SNIFF TESTon 09-28-2019 GI [...] NO FLUOROSCOPIC EVIDENCE OF RIGHT DIAPHRAGMATIC PARALYSIS. Full Stack Java Developer: PSCB Transcribe Date/Time: Sep 28 2019 10:30A Dictated by : BILLIE EISENBERG MD This examination was interpreted and the report reviewed and electronically signed by: BILLIE EISENBERG MD on Sep 28 2019 10:35AM EST [id number] [facility] PROGRESSon 09-28-2019 PROGRESS HNO ID: [id number] Author: Lima Ambrocio (Rt) Service: Radiology Author Type: Counter Supervisor Type: Progress Notes Filed: 09/28/2019 10:19 AM [...] RT Zee September 28, 2019 10:18 AM [facility] PROGRESS HNO ID: [id number] Author: Cathi Robles (Rt) Service: Radiology Author Type: Counter Supervisor Type: Progress Notes Filed: 09/28/2019 9:28 AM [...] RT Lokesh September 28, 2019 9:25 AM [facility] Coding Summary.on 05-09-2017 Coding Summary. CODING DATE: 018 [facility] STATUS: Home (Routine DC) PAYOR: Medicare [...] Katya Navarrete Date Saved: 05/09/2017 07:09 am [facility] Vital Signs Date Time Vital Sign Value Performing Clinician Facility 02-02-2024 15:46-0500 Body height 170.2 cm Shaw Francois MD Work Phone: [facility] 02-02-2024 15:46-0500 Body mass index (BMI) [Ratio] 26.94 kg/m2 Shaw Francois MD Work Phone: [facility] 02-02-2024 15:46-0500 Body weight 78.02 kg Shaw Francois MD Work Phone: [facility] 02-02-2024 15:46-0500 Diastolic blood pressure 74 mm[Hg] Shaw Francois MD Work Phone: [facility] 02-02-2024 15:46-0500 Heart rate 71 /min Shaw Francois MD Work Phone: [facility] 02-02-2024 15:46-0500 SaO2% (BldA) [Mass fraction] 99 % Shaw Francois MD Work Phone: [facility] 02-02-2024 15:46-0500 Systolic blood pressure 126 mm[Hg] Shaw Francois MD Work Phone: [facility] 09-02-2023 12:21-0400 Body height 166.37 cm II Shaw Francois Work Phone: [facility] 09-02-2023 07:47-0400 Body temperature 97.4 [degF] II Shaw Francois Work Phone: [facility] 09-02-2023 07:47-0400 Diastolic blood pressure 58 mm[Hg] II Shaw Francois Work Phone: [facility] 09-02-2023 07:47-0400 Heart rate 51 /min II Shaw Francois Work Phone: [facility] 09-02-2023 07:47-0400 Respiratory rate 16 /min II Shaw Francois Work Phone: [facility] 09-02-2023 07:47-0400 SaO2% (BldA) [Mass fraction] 97 % II Shaw Francois Work Phone: [facility] 09-02-2023 07:47-0400 Systolic blood pressure 100 mm[Hg] II Shaw Francois Work Phone: [facility] 09-02-2023 05:39-0400 Body weight 86.8 kg II Shaw Francois Work Phone: [facility] 09-01-2023 17:15-0400 Inhaled oxygen flow rate 1 L/min II Shaw Francois Work Phone: [facility] 09-01-2023 10:25-0400 Body mass index (BMI) [Ratio] 29 kg/m2 II Shaw Francois Work Phone: [facility] 06-26-2023 11:43-0400 Body height 170.18 cm II Shaw Francois Work Phone: [facility] 06-26-2023 11:43-0400 Body mass index (BMI) [Ratio] 27.3 kg/m2 II Shaw Francois Work Phone: [facility] 06-26-2023 11:43-0400 Body weight 79.37 kg II Shaw Francois Work Phone: [facility] 06-10-2022 10:20-0400 Body height 168 cm Garrett Beltrán MD Work Phone: [facility] 06-10-2022 10:20-0400 Body temperature 97.39 [degF] Garrett Beltrán MD Work Phone: [facility] 06-10-2022 10:20-0400 Body weight 80.74 kg Garrett Beltrán MD Work Phone: [facility] 06-10-2022 10:20-0400 Diastolic blood pressure 63 mm[Hg] Garrett Beltrán MD Work Phone: [facility] 06-10-2022 10:20-0400 Heart rate 68 /min Garrett Beltrán MD Work Phone: [facility] 06-10-2022 10:20-0400 Respiratory rate 16 /min Garrett Beltrán MD Work Phone: [facility] 06-10-2022 10:20-0400 SaO2% (BldA) [Mass fraction] 97 % Garrett Beltrán MD Work Phone: [facility] 06-10-2022 10:20-0400 Systolic blood pressure 133 mm[Hg] Garrett Beltrán MD Work Phone: [facility] 06-04-2021 10:09-0400 Body height 168 cm Garrett Beltrán MD Work Phone: [facility] 06-04-2021 10:09-0400 Body temperature 97.5 [degF] Garrett Beltrán MD Work Phone: [facility] 06-04-2021 10:09-0400 Body weight 83.01 kg Garrett Beltrán MD Work Phone: [facility] 06-04-2021 10:09-0400 Diastolic blood pressure 53 mm[Hg] Garrett Beltrán MD Work Phone: [facility] 06-04-2021 10:09-0400 Heart rate 66 /min Garrett Beltrán MD Work Phone: [facility] 06-04-2021 10:09-0400 Respiratory rate 16 /min Garrett Beltrán MD Work Phone: [facility] 06-04-2021 10:09-0400 SaO2% (BldA) [Mass fraction] 95 % Garrett Beltrán MD Work Phone: [facility] 06-04-2021 10:09-0400 Systolic blood pressure 128 mm[Hg] Garrett Beltrán MD Work Phone: [facility] Encounters Encounter Date Encounter Type Care Provider Facility Start: 02-03-2024 End: 02-03-2024 Telephone encounter Jennifer HAQ Work Phone: [facility] Start: 02-02-2024 End: 02-02-2024 Office outpatient visit 25 minutes Shaw Francois MD Work Phone: [facility] Comment on above: Closed fracture of l eft hip with routine healing, subsequent encounter (Primary Dx); Depressive disorder ([facility]) Start: 02-02-2024 End: 02-02-2024 ambulatory SHAW FRANCOIS Not Available Start: 02-02-2024 End: 02-02-2024 Bamboo flowsheet Shaw Francois MD Work Phone: [facility] Start: 02-02-2024 End: 02-02-2024 Bamboo flowsheet Shaw Francois MD Work Phone: [facility] Start: 01-16-2024 End: 01-18-2024 ambulatory CAROLINE [facility] Start: 01-16-2024 End: 01-18-2024 Subsequent hospital visit by physician [facility] Additional Xray At [facility] Comment on above: Closed fracture of n tricia of left femur, initial encounter ([facility] Start: 12-26-2023 End: 12-28-2023 Clinisync Result Encounter Generic External Data Provider [facility] External Department Unsolicited Start: 12-26-2023 End: 12-28-2023 Clinisync Result Encounter Generic External Data Provider [facility] External Department Unsolicited Start: 12-03-2023 End: 12-03-2023 ambulatory JACINTO DUTTA Not Available Start: 11-25-2023 End: 11-25-2023 ambulatory II Shaw Francois Work Phone: [facility] Work Phone: Start: 11-25-2023 End: 11-25-2023 Patient encounter procedure II Sahw Francois Work Phone: [facility] [place] [facility] Work Phone: Start: 11-20-2023 End: 11-20-2023 Bamboo flowsheet Antonette Gunn INDUSTRIAL RENDERER [facility] Start: 11-20-2023 End: 11-20-2023 Bamboo flowsheet Antonette Gunn INDUSTRIAL RENDERER [facility] Start: 11-20-2023 End: 11-20-2023 Admission to same day surgery center Antonette Gunn INDUSTRIAL RENDERER [facility] Comment on above: Acute pain of right knee (Primary Dx); Aftercare following right knee joint replacement surgery; Knee stiffness, right Start: 11-20-2023 End: 11-20-2023 ambulatory Antonette Gunn INDUSTRIAL RENDERER [facility] Start: 11-18-2023 End: 11-18-2023 Bamboo flowsheet Antonette Gunn INDUSTRIAL RENDERER [facility] Start: 11-18-2023 End: 11-18-2023 Bamboo flowsheet Antonette Gunn INDUSTRIAL RENDERER [facility] Start: 11-18-2023 End: 11-18-2023 Admission to same day surgery center Antonette Gunn INDUSTRIAL RENDERER [facility] Comment on above: Acute pain of right knee (Primary Dx); Aftercare following right knee joint replacement surgery; Knee stiffness, right Start: 11-18-2023 End: 11-18-2023 ambulatory Antonette Gunn INDUSTRIAL RENDERER [facility] Start: 11-13-2023 End: 11-13-2023 Admission to same day surgery center Antonette Gunn INDUSTRIAL RENDERER [facility] Comment on above: Acute pain of right knee (Primary Dx); Aftercare following right knee joint replacement surgery; Knee stiffness, right Start: 11-13-2023 End: 11-13-2023 ambulatory Antonette Gunn INDUSTRIAL RENDERER [facility] Start: 11-13-2023 End: 11-13-2023 Bamboo flowsheet Antonette Gunn INDUSTRIAL RENDERER [facility] Start: 11-13-2023 End: 11-13-2023 Bamboo flowsheet Antonette Gunn INDUSTRIAL RENDERER [facility] Start: 11-11-2023 End: 11-11-2023 Admission to same day surgery center Antonette Gunn INDUSTRIAL RENDERER [facility] Comment on above: Acute pain of right knee (Primary Dx); Aftercare following right knee joint replacement surgery; Knee stiffness, right Start: 11-11-2023 End: 11-11-2023 ambulatory Antonette Gunn INDUSTRIAL RENDERER [facility] Start: 11-05-2023 End: 11-05-2023 Bamboo flowsheet Jackie Persaud PT Work Phone: [facility] Start: 11-05-2023 End: 11-05-2023 Bamboo flowsheet Jackie Persaud PT Work Phone: [facility] Start: 11-05-2023 End: 11-05-2023 Admission to same day surgery center Jackie Persaud PT Work Phone: [facility] Comment on above: Acute pain of right knee (Primary Dx); Aftercare following right knee joint replacement surgery; Knee stiffness, right Start: 11-05-2023 End: 11-05-2023 ambulatory Jackie Persaud PT Work Phone: [facility] Start: 10-31-2023 End: 10-31-2023 Bamboo flowsheet Antonette Camposbley INDUSTRIAL RENDERER [facility] Start: 10-31-2023 End: 10-31-2023 Bamboo flowsheet Antonette Camposbley INDUSTRIAL RENDERER [facility] Start: 10-31-2023 End: 10-31-2023 Admission to same day surgery center Antonette Camposbley INDUSTRIAL RENDERER [facility] Comment on above: Acute pain of right knee (Primary Dx); Aftercare following right knee joint replacement surgery; Knee stiffness, right Start: 10-31-2023 End: 10-31-2023 ambulatory Antonette Camposbley INDUSTRIAL RENDERER [facility] Start: 10-29-2023 End: 10-29-2023 Bamboo flowsheet Antonette Kelbley INDUSTRIAL RENDERER [facility] Start: 10-29-2023 End: 10-29-2023 Bamboo flowsheet Antonette Kelbley INDUSTRIAL RENDERER [facility] Start: 10-29-2023 End: 10-29-2023 Admission to same day surgery center Antonette Camposbley INDUSTRIAL RENDERER [facility] Comment on above: Acute pain of right knee (Primary Dx); Aftercare following right knee joint replacement surgery; Knee stiffness, right Start: 10-29-2023 End: 10-29-2023 ambulatory Antonette Andresbley INDUSTRIAL RENDERER [facility] Start: 10-24-2023 End: 10-24-2023 Bamboo flowsheet Antonette Kelbley INDUSTRIAL RENDERER [facility] Start: 10-24-2023 End: 10-24-2023 Bamboo flowsheet Antonette Kelbley INDUSTRIAL RENDERER [facility] Start: 10-24-2023 End: 10-24-2023 Admission to same day surgery center Antonette Gunn INDUSTRIAL RENDERER [facility] Comment on above: Acute pain of right knee (Primary Dx); Aftercare following right knee joint replacement surgery; Knee stiffness, right Start: 10-24-2023 End: 10-24-2023 ambulatory Antonette Gunn INDUSTRIAL RENDERER [facility] Start: 10-21-2023 End: 10-21-2023 Bamboo flowsheet Antonette Marcusy INDUSTRIAL RENDERER [facility] Start: 10-21-2023 End: 10-21-2023 Bamboo flowsheet Antonette Marcusy INDUSTRIAL RENDERER [facility] Start: 10-21-2023 End: 10-21-2023 Admission to same day surgery center Antonette Gunn INDUSTRIAL RENDERER [facility] Comment on above: Acute pain of right knee (Primary Dx); Aftercare following right knee joint replacement surgery; Knee stiffness, right Start: 10-21-2023 End: 10-21-2023 ambulatory Antonette Marcusy INDUSTRIAL RENDERER [facility] Start: 10-17-2023 End: 10-17-2023 Bamboo flowsheet Antonette Marcusy INDUSTRIAL RENDERER [facility] Start: 10-17-2023 End: 10-17-2023 Bamboo flowsheet Antonette Marcusy INDUSTRIAL RENDERER [facility] Start: 10-17-2023 End: 10-17-2023 Admission to same day surgery center Antonette Gunn INDUSTRIAL RENDERER [facility] Comment on above: Acute pain of right knee (Primary Dx); Aftercare following right knee joint replacement surgery; Knee stiffness, right Start: 10-17-2023 End: 10-17-2023 ambulatory Antonette Marcusy INDUSTRIAL RENDERER [facility] Start: 10-15-2023 End: 10-15-2023 Bamboo flowsheet Antonette Marcusy INDUSTRIAL RENDERER [facility] Start: 10-15-2023 End: 10-15-2023 Bamboo flowsheet Antonette Camposbley INDUSTRIAL RENDERER [facility] Start: 10-15-2023 End: 10-15-2023 Patient encounter procedure II Shaw Francois Work Phone: [facility] Work Phone: Start: 10-15-2023 End: 10-15-2023 ambulatory ANTONETTE GUNN Not Available Start: 10-15-2023 End: 10-15-2023 Admission to same day surgery center Antonette Gunn INDUSTRIAL RENDERER [facility] Comment on above: Acute pain of right knee (Primary Dx); Aftercare following right knee joint replacement surgery; Knee stiffness, right Start: 10-15-2023 End: 10-15-2023 ambulatory MARIA ELENA Francois Work Phone: [facility] Start: 10-09-2023 End: 10-09-2023 Bamboo flowsheet Antonette Gunn INDUSTRIAL RENDERER [facility] Start: 10-09-2023 End: 10-09-2023 Bamboo flowsheet Antonette Gunn INDUSTRIAL RENDERER [facility] Start: 10-09-2023 End: 10-09-2023 Admission to same day surgery center Antonette Gunn INDUSTRIAL RENDERER [facility] Comment on above: Acute pain of right knee (Primary Dx); Aftercare following right knee joint replacement surgery; Knee stiffness, right Start: 10-09-2023 End: 10-09-2023 ambulatory Antonette Gunn INDUSTRIAL RENDERER [facility] Start: 10-06-2023 End: 10-06-2023 Bamboo flowsheet Pilo Cazaresink INDUSTRIAL RENDERER [facility] Start: 10-06-2023 End: 10-06-2023 Bamboo flowsheet Pilo Cazaresink INDUSTRIAL RENDERER [facility] Start: 10-06-2023 End: 10-06-2023 Admission to same day surgery center Pilo Cazaresink INDUSTRIAL RENDERER [facility] Comment on above: Acute pain of right knee (Primary Dx); Aftercare following right knee joint replacement surgery; Knee stiffness, right Start: 10-06-2023 End: 10-06-2023 ambulatory Pilo Cazaresink INDUSTRIAL RENDERER [facility] Start: 10-01-2023 End: 10-01-2023 Bamboo flowsheet Antonette Gunn INDUSTRIAL RENDERER [facility] Start: 10-01-2023 End: 10-01-2023 Bamboo flowsheet Antonette Gunn INDUSTRIAL RENDERER [facility] Start: 10-01-2023 End: 10-01-2023 Admission to same day surgery center Antonette Gunn INDUSTRIAL RENDERER [facility] Comment on above: Acute pain of right knee (Primary Dx); Aftercare following right knee joint replacement surgery; Knee stiffness, right Start: 10-01-2023 End: 10-01-2023 ambulatory Antonette Gunn INDUSTRIAL RENDERER [facility] Start: 09-29-2023 End: 09-29-2023 ambulatory JACKIE PERSAUD Not Available Start: 09-26-2023 End: 09-26-2023 ambulatory ANTONETTE GUNN Not Available Start: 09-24-2023 End: 09-24-2023 ambulatory JACKIE PERSAUD Not Available Start: 09-18-2023 End: 09-18-2023 ambulatory II Shaw Francois Work Phone: [facility] Work Phone: Start: 09-18-2023 End: 09-18-2023 Patient encounter procedure II Shaw Francois Work Phone: [facility] [place] [facility] Work Phone: Start: 09-02-2023 Non-patient / Non-visit II Giovani Francois Work Phone: [facility] Work Phone: Start: 09-01-2023 End: 09-02-2023 Admission to same day surgery center II Shaw Francois Work Phone: [facility] [place] Start: 09-01-2023 End: 09-02-2023 ambulatory II Shaw Francois Work Phone: [facility] Work Phone: Start: 09-01-2023 Non-patient / Non-visit II Giovani Francois Work Phone: [facility] Work Phone: Start: 08-22-2023 End: 08-22-2023 ambulatory II Shaw Francois Work Phone: [facility] Work Phone: Start: 08-22-2023 End: 08-22-2023 Patient encounter procedure II Shaw Francois Work Phone: [facility] Work Phone: Start: 08-21-2023 End: 08-21-2023 Patient encounter procedure II Shaw Francois Work Phone: [facility] [place] [facility] Work Phone: Start: 08-21-2023 End: 08-21-2023 Discharged Recurring II Shaw Francois Work Phone: [facility] [place] Start: 08-21-2023 Registered Recurring II Shaw Francois Work Phone: [facility] [place] Start: 08-21-2023 End: 08-21-2023 ambulatory II Shaw Francois Work Phone: [facility] Work Phone: Start: 08-21-2023 End: 08-21-2023 Patient encounter procedure II Shaw Francois Work Phone: [facility] [place] [facility] Start: 08-21-2023 End: 08-21-2023 ambulatory II Shaw Francois Work Phone: [facility] Work Phone: Start: 08-18-2023 End: 08-18-2023 Patient encounter procedure II Shaw Francois Work Phone: [facility] Work Phone: Start: 08-18-2023 End: 08-18-2023 ambulatory II Shaw Francois Work Phone: [facility] Work Phone: Start: 08-18-2023 Encounter for preprocedural laboratory examination Jeevan Sanchez II [facility] Start: 07-24-2023 End: 07-24-2023 ambulatory SHAW FRANCOIS Not Available Start: 07-17-2023 End: 07-17-2023 ambulatory II Shaw Francois Work Phone: [facility] Work Phone: Start: 07-17-2023 End: 07-17-2023 Patient encounter procedure II Shaw Francois Work Phone: [facility] [place] [facility] Work Phone: Start: 07-14-2023 End: 07-14-2023 ambulatory SHAW FRANCOIS Not Available Start: 06-26-2023 End: 06-26-2023 Patient encounter procedure II Shaw Francois Work Phone: [facility] [place] [facility] Work Phone: Start: 06-26-2023 End: 06-26-2023 Patient encounter procedure II Shaw Francois Work Phone: [facility] [place] [facility] Start: 06-26-2023 End: 06-26-2023 ambulatory II Shaw Francois Work Phone: [facility] Work Phone: Start: 04-23-2023 End: 04-23-2023 ambulatory FRANCI LAMB Not Available Start: 04-15-2023 End: 04-15-2023 ambulatory JACINTO DUTTA Not Available Start: 06-10-2022 End: 06-10-2022 ambulatory GARRETT BELTRÁN Facility:[facility] Start: 06-10-2022 End: 06-10-2022 Office outpatient [...] encounter procedure Garrett Beltrán MD Work Phone: [facility] Start: 05-21-2021 End: 05-21-2021 Patient encounter procedure II Shaw Francois Work Phone: [facility] Start: 05-08-2017 End: 05-09-2017 Ambulatory SHAW FRANCOIS Facility:[facility] Procedures Date Procedure Procedure Detail Performing Clinician Start: 01-16-2024 Radex hip unilateral with pelvis 2-3 views Caroline Shore MD Work Phone: Start: 12-26-2023 Bacteria identified in Urine by Culture Generic External Data Provider Start: 11-25-2023 Plain X-ray of right femur II Shaw Francois Work Phone: Start: 11-25-2023 Plain X-ray of right tibia and right fibula II Shwa Francois Work Phone: Start: 11-25-2023 X-ray of [...] Surgery: [id number] Result Comment: PERF ORMED BY: [facility] [place] [address] PATHOLOGIST GREENSKEEPER LABORER CAMILO SEBASTIAN M.D. Start: 07-17-2023 Methicillin resistan t Staphylococcus aureus culture II Shaw Francois Work Phone: Start: 06-26-2023 Plain X-ray of left hip II Shaw Francois Work Phone: Start: 06-26-2023 X-ray of right knee II Shaw Francois Work Phone: Start: 2019 Adult depression screening assessment Garrett Beltrán MD Work Phone: Start: 08-17-2015 H/O: hysterectomy History of hysterectomy Antonette Gunn INDUSTRIAL RENDERER Plan of Treatment Date Care Activity Detail Author Start: 06-04-2024 DIABETES SCREEN DIABETES SCREEN [facility] Start: 04-15-2024 End: 04-15-2024 Patient encounter procedure 04/15/2024 1:45 PM EST Office Visit [facility] [address] [place] [id number] Jacinto Dutta MD [address] [place], [place] [id number] [facility] Start: 02-09-2024 End: 02-09-2024 Patient encounter procedure 02/09/2024 2:00 PM EST Office Visit [facility] [address] [address] [place] [address] Shaw Francois MD [address] [place] [address] [facility] Start: 02-02-2024 End: 02-02-2024 Patient encounter procedure 02/02/2024 4:00 PM EST Office Visit [facility] [address] [place] [address] Shaw Francois MD [address] [place] [address] Arrived [facility] Comment on above: Arrived Start: 12-17-2023 Medicare Annual Well ness (AWV) Medicare Annual Wellness (AWV) [facility] Start: 11-25-2023 Plain X-ray of right femur XR femur RT 2V* [facility] Start: 11-25-2023 Plain X-ray of right tibia and right fibula XR tibia fibula RT 2V* [facility] Start: 11-25-2023 X-ray of right knee, two views XR knee RT 2V [facility] Start: 11-25-2023 XR Femur - right 2 Views [facility] Start: 11-25-2023 XR Knee - right 2 Views [facility] Start: 11-25-2023 XR Tibia and Fibula - right 2 Views [facility] Start: 11-21-2023 End: 11-21-2023 ambulatory 11/21/2023 12:30 PM EDT Treatment [facility] [address] [place] [address] Antonette Gunn, INDUSTRIAL RENDERER [facility] Start: 11-20-2023 End: 11-20-2023 ambulatory [facility] Comment on above: Arrived Start: 11-18-2023 End: 11-18-2023 ambulatory 11/18/2023 12:30 PM EDT Treatment [facility] [address] [place] [address] Antonette Gunn, INDUSTRIAL RENDERER [facility] Start: 11-13-2023 End: 11-13-2023 ambulatory 11/13/2023 2:30 PM EDT Treatment [facility] [address] [place] [address] Antonette Gunn, INDUSTRIAL RENDERER [facility] Start: 11-11-2023 End: 11-11-2023 ambulatory 11/11/2023 12:30 PM EDT Treatment [facility] [address] [place] [address] Antonette Gunn, INDUSTRIAL RENDERER [facility] Start: 11-05-2023 End: 11-05-2023 ambulatory [facility] Comment on above: Arrived Start: 10-31-2023 End: 10-31-2023 ambulatory 10/31/2023 12:00 PM EDT Treatment [facility] [address] [facility] [address] [place] [address] Antonette Gunn, INDUSTRIAL RENDERER [facility] Start: 10-29-2023 End: 10-29-2023 ambulatory 10/29/2023 12:30 PM EDT Treatment [facility] [address] [place] [address] Sosa Gunnissa, INDUSTRIAL RENDERER [facility] Start: 10-24-2023 End: 10-24-2023 ambulatory [facility] Comment on above: Arrived Start: 10-21-2023 End: 10-21-2023 Admission to same day surgery center 10/21/2023 1:00 PM EDT Treatment [facility] [address] [facility] [address] [place] [address] Sosa Gunnissa, INDUSTRIAL RENDERER Acute pain of right knee (Primary Dx); Aftercare following right knee joint replacement surgery; Knee stiffness, right [facility] Comment on above: Acute pain of right knee (Primary Dx); Aftercare following right knee joint replacement surgery; Knee stiffness, right Start: 10-21-2023 End: 10-21-2023 ambulatory 10/21/2023 1:00 PM EDT Treatment [facility] [address] [facility] [address] [place] [address] Sosa Gunnissa, INDUSTRIAL RENDERER [facility] Start: 10-17-2023 End: 10-17-2023 ambulatory [facility] Start: 10-15-2023 X-ray of right knee XR knee RT 3V - NOT FOR ER USE [facility] Start: 10-15-2023 XR Knee - right 3 Views [facility] Start: 10-15-2023 End: 10-15-2023 ambulatory 10/15/2023 11:00 AM EDT Treatment [facility] [address] [facility] [address] [place] [address] Antonette Gunn PTA [facility] Start: 10-12-2023 COVID-19 Vaccine ( season) COVID-19 Vaccine ( season) [facility] Start: 10-12-2023 Influenza vaccination Influenza Vacc ine (#1) [facility] Start: 10-09-2023 End: 10-09-2023 ambulatory [facility] Comment on above: Arrived Start: 10-06-2023 End: 10-06-2023 Admission to same day surgery center 10/06/2023 11:30 AM EDT Treatment [facility] [address] [facility] [address] [place] [address] Pilo Osorio PTA Acute pain of right knee (Primary Dx); Aftercare following right knee joint replacement surgery; Knee stiffness, right [facility] Comment on above: Acute pain of right knee (Primary Dx); Aftercare following right knee joint replacement surgery; Knee stiffness, right Start: 10-06-2023 End: 10-06-2023 ambulatory 10/06/2023 11:30 AM EDT Treatment [facility] [address] [facility] [address] [place] [address] Pilo Osorio PTA [facility] Start: 10-01-2023 End: 10-01-2023 ambulatory 10/01/2023 11:00 AM EDT Treatment [facility] [address] [facility] [address] [place] [address] Antonette Gunn PTA Arrived [facility] Comment on above: Arrived Start: 09-03-2023 [facility] Start: 09-02-2023 [facility] Start: 09-01-2023 Hospital admission [facility] Start: 09-01-2023 Referral to clinical computer numeric control setter [facility] Start: 09-01-2023 Referral to rehabilitation physician [facility] Start: 08-21-2023 Plain X-ray of right femur XR femur RT 2V* [facility] Start: 08-21-2023 Plain X-ray of right tibia and right fibula XR tibia fibula RT 2V* [facility] Start: 08-21-2023 XR Femur - right 2 Views [facility] Start: 08-21-2023 XR Tibia and Fibula - right 2 Views [facility] Start: 08-18-2023 Bacteria identified in Urine by Culture [facility] Start: 08-18-2023 [facility] Start: 07-17-2023 Methicillin resistan t Staphylococcus aureus [Presence] in Unspecified specimen by Organism specific culture [facility] Start: 07-17-2023 [facility] Start: 07-17-2023 MRSA Culture MRSA Culture [facility] Start: 06-11-2023 End: 06-11-2023 CBC W Auto Differential panel - Blood CBC + DIFF Lab Routine Breast screening Expected: 06/11/2023 (Approximate), Expires: 06/11/2023 [facility] Work Phone: Comment on above: Expected: 06/11/2023 (Approximate), Expires: 06/11/2023 Start: 06-11-2023 End: 06-11-2023 Comprehensive metabolic 2000 panel - Serum or Plasma COMP METABOLIC PANEL Lab Routine Breast screening Expected: 06/11/2023 (Approximate), Expires: 06/11/2023 [facility] Work Phone: Comment on above: Expected: 06/11/2023 (Approximate), Expires: 06/11/2023 Start: 06-11-2023 End: 07-10-2023 TORRES SCREENING TORRES SCREENING Radiology Routine Breast screening Expected: 06/11/2023 (Approximate), Expires: 07/10/2023 [facility] Work Phone: Comment on above: Expected: 06/11/2023 (Approximate), Expires: 07/10/2023 Start: 02-10-2023 Annual Wellness Visi t (Medicare Advantage) Annual Wellness Visit (Medicare Advantage) [facility] Start: 06-03-2022 End: 06-04-2022 CBC W Auto Differential panel - Blood CBC + DIFF Lab Routine Breast screening Malignant 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, estrogen receptor positive, unspecified site of breast (HCC) Expected: 06/03/2022 (Approximate), Expires: 06/04/2022 [facility] Work Phone: Comment on above: Expected: 06/03/2022 (Approximate), Expires: 06/04/2022 Start: 06-03-2022 End: 06-04-2022 Comprehensive metabolic 2000 panel - Serum or Plasma COMP METABOLIC PANEL Lab Routine Breast screening Malignant 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, estrogen receptor positive, unspecified site of breast (HCC) Expected: 06/03/2022 (Approximate), Expires: 06/04/2022 [facility] Work Phone: Comment on above: Expected: 06/03/2022 (Approximate), Expires: 06/04/2022 Start: 05-31-2022 End: 07-04-2022 Screening mammography bi 2-view breast inc cad TORRES SCREENING Radiology Routine Breast screening Malignant 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, estrogen receptor positive, unspecified site of breast (HCC) Expected: 05/31/2022 (Approximate), Expires: 07/04/2022 [facility] Work Phone: Comment on above: Expected: 05/31/2022 (Approximate), Expires: 07/04/2022 Start: 02-10-2022 ADVANCE DIRECTIVE DISCUSSION ADVANCE DIRECTIVE DISCUSSION [facility] Start: 02-10-2022 DEPRESSION ASSESSMENT DEPRESSION ASS ESSMENT [facility] Start: 02-10-2021 ADVANCE DIRECTIVE DISCUSSION ADVANCE DIRECTIVE DISCUSSION [facility] Start: 11-09-2020 Adult depression screening assessment DEPRESSION SCREENING [facility] Start: 11-09-2018 Respiratory Syncytia l Virus (RSV) or age 60 yrs+ (1 - 1-dose 75+ series) Respiratory Syncytial Virus (RSV) or age 60 yrs+ (1 - 1-dose 75+ series) [facility] Start: 11-09-2008 BONE DENSITY BONE DENSITY [facility] Start: 11-09-2008 Pneumococcal Vaccine : 65+ Years (1 of 1 - PCV) Pneumococcal Vaccine: 65+ Years (1 of 1 - PCV) [facility] Start: 11-09-1993 Shingles vaccine (1 of 2) Bearden gles vaccine (1 of 2) [facility] Start: 11-09-1993 SHINGRIX VACCINE (1 of 2) BEARDEN GRIX VACCINE (1 of 2) [facility] Start: 11-09-1962 DTaP/Tdap/Td vaccine (1 - Tdap) DTaP/Tdap/Td vaccine (1 - Tdap) [facility] Start: 11-09-1962 Urine microalbumin profile DTAP,TDAP,TD (1 - Tdap) [facility] Start: 11-09-1961 HEPATITIS C SCREENING HEPATITIS C SC REENING [facility] Start: 1955 Depression Screen Depression Screen [facility] Cotinine [Mass/volum e] in Serum or Plasma [facility] Glucose measurement estimated from glycated hemoglobin [facility] Hemoglobin [Mass/vol ume] in Blood [facility] Nicotine [Mass/volum e] in Serum or Plasma [facility] Patient Education 3M [address] Therapy Know your Meds [facility] Work Phone: Patient referral [facility] Work Phone: [facility] Immunizations Immunization Date Immunization Notes Care Provider [facility] 12-03-2023 Influenza, High-dose Seasonal, Quadrivalent, Preservative Free Generic Provider [facility] 12-02-2022 influenza, seasonal, injectable Antonette Angelinegisell INDUSTRIAL RENDERER [facility] 12-02-2022 influenza virus vacc ine, unspecified formulation Antonettetamica Gunn INDUSTRIAL RENDERER [facility] 12-12-2021 Influenza, Seasonal, Quadrivalent, Adjuvanted Antonette Gunn INDUSTRIAL RENDERER [facility] 11-27-2021 COVID-19 mRNA Bivale nt Booster (Pfizer) II Shaw Francois Work Phone: [facility] 11-24-2020 COVID-19 mRNA, Comir leonie (Pfizer) MARIA ELENA Francois Work Phone: [facility] 11-17-2020 influenza (aIIV4) vaccine, age 65+ yr, quadrivalent, PF (FLUAD QUADRIVALENT) Garrett Beltrán MD Work Phone: [facility] 03-31-2020 COVID-19 mRNA, Comir leonie (Pfizer) MARIA ELENA Francois Work Phone: [facility] 03-10-2020 COVID-19 mRNA, Yasmin hadley (Pfizer) II Shaw Francois Work Phone: [facility] 12-07-2019 influenza, high-dose , quadrivalent vaccine (FLUZONE HIGH DOSE QUADRIVALENT) Garrett Beltrán MD Work Phone: [facility] 12-07-2019 pneumococcal conjuga te vaccine, 13 valent Garrett Beltrán MD Work Phone: [facility] 11-24-2019 influenza, seasonal, injectable Garrett Beltrán MD Work Phone: [facility] 11-11-2019 pneumococcal conjuga te vaccine, 13 valent Garrett Beltrán MD Work Phone: [facility] 11-17-2018 influenza, high dose seasonal, preservative-free Antonette Gunn [facility] 11-14-2018 influenza, high dose seasonal, preservative-free Garrett Beltrán MD Work Phone: [facility] 11-24-2017 influenza, high dose seasonal, preservative-free Garrett Beltrán MD Work Phone: [facility] 12-11-2016 influenza, high dose seasonal, preservative-free Garrett Beltrán MD Work Phone: [facility] 11-28-2015 influenza, injectabl e, quadrivalent, contains preservative Garrett Beltrán MD Work Phone: [facility] 07-11-2012 pneumococcal polysaccharide vaccine, 23 valent Garrett Beltrán MD Work Phone: [facility] 11-28-2008 influenza virus vacc ine, whole virus Garrett Beltrán MD Work Phone: [facility] Payers Date Payer Category Payer Self-pay [id number] 2023 Medicare (Managed Care) HELENA BUTLER [id number] 2023 Unknown [id number] 2022 Medicare [id number] 2021 Unknown ANTHEM BLUE CROS S AND BLUE SHIELD ANTHEM MEDIBLUE HMO [id number] 2021-Present [phone] [address] [place] [address] [facility] [id number]. 2.7.3.050970.315 2020 Unknown [id number] 2017 Unknown [id number] 1943 Unknown [id number] 2.16840.1.639466.3.579. 2.593 1943 Unknown [id number] 2.16840.1.206086.3.579. 2.174 1943 Unknown [id number] 2.16840.1.281113.3.579. 2.174 1943 Unknown [id number] 2.16.840.1.353413.3.579. 2.9 1943 Unknown [id number] 2.16840.1.495970.3.579. 2.9 1943 Unknown [id number] 2.16.840.1.404749.3.579. 2.125 1943 Unknown [id number] 2.16.840.1.031552.3.579. 2.1258 1943 Unknown [id number] 2.16.840.1.873883.3.579. 2.1258 1943 Unknown [id number] 2.16.840.1.966851.3.579. 2.1258 1943 Unknown [id number] 2.16.840.1.815268.3.579. 2.1258 1943 Unknown [id number] 2.16.840.1.941556.3.579. 2.1258 1943 Unknown [id number] 2.16.840.1.549920.3.579. 2.1258 1943 Unknown [id number] 2.16.840.1.880246.3.579. 2.1258 1943 Unknown [id number] 2.16.840.1.680069.3.579. 2.1258 1943 Unknown [id number] 2.16.840.1.927613.3.579. 2.1258 1943 Unknown [id number] 2.16.840.1.723743.3.579. 2.1258 1943 Unknown [id number] 2.16.840.1.012505.3.579. 2.1258 1943 Unknown [id number] 2.16.840.1.723036.3.579. 2.1258 1943 Unknown [id number] 2.16.840.1.839785.3.579. 2.1258 1943 Unknown [id number] 2.16.840.1.093605.3.579. 2.1258 1943 Unknown [id number] 2.16.840.1.429192.3.579. 2.1258 1943 Unknown [id number] 2.16.840.1.650469.3.579. 2.1259 1943 Unknown [id number] 2.16.840.1.294078.3.579. 2.9 1943 Unknown [id number] 2.16.840.1.268258.3.579. 2.1259 1943 Unknown [id number] 2.16.840.1.344393.3.579. 2.9 1943 Unknown [id number] 2.16.840.1.687030.3.579. 2.1259 Unknown [id number] 2.16.840.1.605851.3.579. 2.531 Unknown [id number] 2.16.840.1.295595.3.579. 2.531 Unknown [id number] 2.16.840.1.646618.3.579. 2.531 Unknown [id number] 2.16.840.1.036903.3.579. 2.531 Unknown [id number] 2.16.840.1.090687.3.579. 2.531 Unknown [id number] 2.16.840.1.355219.3.579. 2.531 Unknown [id number] 2.16.840.1.602532.3.579. 2.531 Unknown [id number] 2.16.840.1.921862.3.579. 2.531 Social History Date Type Detail Facility [facility] ever [facility] Work Phone: Start: 1945 Sex Assigned At Female F [facility] Start: 05-15-2011 End: 07-24-2022 Tobacco smoking status WVIS Never smoked tobacco [facility] Start: 06-04-2021 Alcohol intake Current drinke r of alcohol (finding) [facility] Start: 1945 Sex Assigned At Not on file [facility] Start: 05-25-2021 End: 06-04-2021 Exposure to SARS-CoV-2 (event) Not sure [facility] Start: 05-15-2011 End: 07-24-2022 Tobacco use and exposure Smokeless tobacco non-user [facility] Start: 09-03-2023 End: 02-02-2024 Alcoholic beverage intake Lifetime non-drinker (finding) [facility] [...] on file [facility] How many standard drinks containing alcohol do you have on a [...] c ups per day, coffee:chocolate [facility] Tobacco smoking stat [facility] Tobacco smoking consumption unknown [facility] NEGATED: Highlighted row [facility] Medical Equipment Procedure Code Equipment Code Equipment Origin al Text Equipment Identifier Dates Arthroplasty, knee, total, minimally invasive Orthopaedic cement, non-medicated [id number] FDA Start: 09-01-2023 Arthroplasty, knee, total, minimally invasive Uncoated knee femur prosthesis, metallic [id number] FDA Start: 09-01-2023 Arthroplasty, knee, total, minimally invasive Tibial insert [id number] FDA Start: 09-01-2023 Arthroplasty, knee, total, minimally invasive Polyethylene patella prosthesis [id number] FDA Start: 09-01-2023 Arthroplasty, knee, total, minimally invasive Knee stem [id number] FDA Start: 09-01-2023 Arthroplasty, knee, total, minimally invasive Uncoated knee tibia prosthesis, metallic [id number] FDA Start: 09-01-2023 Goals Date Patient Goal Desired Activity /State Functional Status Date Assessment Result Facility 08-18-2023 Functional status Dressing Patient at [facility] Work Phone: Mental Status Date Assessment Result Facility 08-18-2023 Cognitive function Cognitive Sta tus Patient at [facility] Work Phone: Clinical Notes 06-04-2021 to 02-03-2024 Telephone Encounter - EUN Tillman - 02/03/2024 10:57 AM ESTTelephone Encounter - EUN Tillman - 02/03/2024 10:57 AM Aki Francois MD - 02/02/2024 4:00 PM EST Note Date & Type Note Facility 02-03-2024 Telephone encounter Note Form atting of this note might be different from the original. Josh Kaminski at pharmacy, with no recent previous Solon script, cannot provide Rx quantity as written. Updated Rx sent. [facility] 02-03-2024 Miscellaneous Notes Formattin g of this note might be different from the original. Josh Kaminski at pharmacy, with no recent previous Solon script, cannot provide Rx quantity as written. Updated Rx sent. documented in this encounter [facility] 02-02-2024 History of Presen t illness Narrative Images from the original note were not included. HPI Follow-up Additional comments: [facility] stay 12/25/23- 12/29/23 for left femur fracture [facility] discharged home 01/17/24 Med Refill Additional comments: Zoloft--[facility] Hydrocodone 5/325 [facility] Last edited by Jacqueline Brito LPN on 02/02/2024 3:49 PM. Subjective Patient ID: Nadia Almeida is a 78 y.o. female who presents for Follow-up ([facility] stay 12/25/23- 12/29/23 for [facility] femur [facility] home 01/17/24) and Med Refill (Zoloft--[facility]/Hydrocodone 5/325 [facility]). Pt is sched to follow up with ortho in Feb 2024 Taking norco for pain --working well per pt she would like refill Patient has home PT/OT coming to her home Med Refill Current Outpatient Medications on File Prior to Visit Medication Sig Dispense Refill cholecalciferol (Vitamin D-3) 50 MCG (2000 UT) tablet 1 (one) time each day at the same time. levothyroxine (Synthroid, Levoxyl) 125 MCG tablet Take 1 tablet (125 mcg) by mouth in the morning. Take before meals. 100 tablet 2 losartan (Cozaar) 25 MG tablet Take 1 tablet (25 mg) by mouth in the morning. 100 tablet 3 Multiple Vitamins-Minerals (CENTRUM SILVER ULTRA WOMENS PO) Centrum Silver [DISCONTINUED] HYDROcodone-acetaminophen (Solon) 5-325 MG tablet Take 1 tablet by mouth every 6 (six) hours if needed for severe pain [DISCONTINUED] sertraline (Zoloft) 100 MG tablet Take 0.5 tablets (50 mg) by mouth Daily 45 tablet 3 No current facility-administered medications on file prior to visit. I have reviewed and reconciled the history and medication list with the patient today. Allergies Allergen Reactions Sulfa Antibiotics Rash, Swelling and Unknown Unknown reaction Nitrofurantoin Unknown Social History Tobacco Use Smoking status: Never Smokeless tobacco: Never Vaping Use Vaping status: Never Used Substance Use Topics Alcohol use: Never Comment: caffeine 1-2 cups per day, coffee:chocolate Family History Problem Relation Name Age of Onset Mental illness Father Cancer Other siblings Melanoma Neg Hx Past Medical History: Diagnosis Date Breast cancer (CMS/HCC) 2011 right; Dr. Beauchamp Depression (CMS/HCC) Diarrhea Gallbladder disease Gastric ulcer Gastric ulcer History of medical problems 2013 abnormal lesion, right forehead Inflamed seborrheic keratosis Inflamed seborrheic keratosis Multinodular goiter (nontoxic) (CMS/HCC) Non-toxic multinodular goiter (CMS/HCC) Osteopenia Osteopenia Rotator cuff tear 2003 right Past Surgical History: Procedure Laterality Date BREAST BIOPSY Right 2012 EGD 08/23/2016 DEXA SCAN 2014 HYSTERECTOMY 1974 IR ABLATION BONE 06/08/2018 Left C2-C5 MASTECTOMY Right 2012 NERVE BLOCK 01/30/2018 Left C3-C6 OTHER SURGICAL HISTORY 2013 excision of soft tissue mass seond intersace left foot NM EGD TRANSORAL BIOPSY SINGLE/MULTIPLE 05/23/2021 NM MOHS MICROGRAPHIC H/N/H/F/G 1ST STAGE 5 BLOCKS 05/18/2018 Left C2-5 THYROIDECTOMY 04/15/2020 TOTAL KNEE ARTHROPLASTY Right 09/01/2023 TOTAL THYROIDECTOMY 04/25/2020 Visit Vitals BP 126/74 Pulse 71 Ht 5' 7 Wt 172 lb SpO2 99% BMI 26.94 kg/m Smoking Status Never BSA 1.92 m Review of Systems Objective Physical Exam Constitutional: General: She is not in acute distress. Appearance: Normal appearance. She is well-developed. HENT: Head: Normocephalic and atraumatic. Eyes: General: No scleral icterus. Conjunctiva/sclera: Conjunctivae normal. Cardiovascular: Rate and Rhythm: Normal rate and regular rhythm. Heart sounds: Normal heart sounds. No murmur heard. Pulmonary: Effort: Pulmonary effort is normal. No respiratory distress. Breath sounds: Normal breath sounds. No wheezing, rhonchi or rales. Skin: General: Skin is warm and dry. Neurological: General: No focal deficit present. Mental Status: She is alert and oriented to person, place, and time. Psychiatric: Mood and Affect: Mood normal. Behavior: Behavior normal. Assessment/Plan Diagnoses and all orders for this visit: Closed fracture of left hip with routine healing, subsequent encounter - HYDROcodone-acetaminophen (Solon) 5-325 MG tablet; Take 1 tablet by mouth every 6 (six) hours if needed for severe pain - The patient was seen today in follow up of recent hospital stay. All available hospital records were reviewed and discussed with the patient. Hospital discharge meds were reviewed. Any changes are noted above. Depressive disorder (CMS/HCC) - sertraline (Zoloft) 100 MG tablet; Take 0.5 tablets (50 mg) by mouth Daily Follow up in about 3 months (around 05/02/2024) for Routine F/U. documented in this encounter [facility] 11-05-2023 History of Presen t illness Narrative Physical Therapy Treatment Visit Patient Name: Nadia Almeida Today's Date: 11/05/2023 Encounter Diagnoses Name Primary? Acute pain of right knee Yes Aftercare following right knee joint replacement surgery Knee stiffness, right Visit number: 13 (1 of 12 visits) (12 of 12 visits) Timed Code Treatment: 53 minutes Total Treatment Time: 63 minutes Time In: 11:00 PM Time Out: 12:03 PM History: Pt. Presents to PT PO right TKA. DOS: 09/01/23. Pt. Presents to PT with FWW and incision site covered with steri strips. Pt. Had home health PT for 3 weeks. Pt. Steps to enter home with handrail. Sleeping in lift chair not sleeping well, about 2 hours. Denies calf pain, arm, chest pain, and N/T. Pt. Does report of headache throughout the day (not severe). Precautions: standard TKA precaution Subjective Pt. Reports knee is feeling better, difficulty walking on uneven surfaces. No cane in home. Pain: 3/10 Objective: PT Evaluation (09/24/23) Right knee AROM: -8 degrees extension; 100 degrees flexion Right knee PROM: -5 degrees extension; 105 degrees flexion Joint: normal Palpation: incision site healing well and covered with steri strips, no S/s of infection or reddness Mild knee swelling Strength: right knee grossly 4/5, SLR 4/5 Flexibility: moderate hamstring tightness Gait: primary FWW but able to walk with SPC safely Treatment: Manual Therapy: (14 minutes) Delivered manual ther to R LE/knee PROM, patellar mobs,STM to posterior/ lateral knee and scar mobilization all to improve mobility decrease swelling and pain Therapeutic Exercise: (20 minutes supervised) Guided pt through ther and flex exercise per grid to improve R LE functional strength and mobility Bike (10 mins )seat to 10 set to hills level 2 to improve mobility and quad strength Therapeutic Activity: (9 minutes unsupervised ) exercises in grid; Exercises to improve dynamic activities, functional tasks, functional mobility to return to prior activity level Neuromuscular re-education: (10 minutes) Required tactile and verbal cues to improve quad activation/facilitation needed for TKE. Modalities: IFC/ CP ( PRN) post session to R knee to decrease muscle soreness Assessment: Outcome Measure: in chart Rehab Diagnosis: right knee pain, decreased knee ROM/flexibility/strength Pt has completed 13 PT sessions post right TKA performed on 08-31-. 8 weeks P.O, amb with SPC mild antalgic gait. R knee AROM in supine demos 3 deg from full extension to 120deg flex, mild quad lag with SLR. Pt. Demonstrates 75% improvement toward PT goals, recommend to continue PT and add balance exercise to help her walk on uneven surfaces. Good tolerance with ther ex. Short Term Goal: To be met in 2 weeks Goal 1: Pt to be instructed in home exercise program. Practicing Urologist Goals: To be met in 10 weeks Goal 1: Pt to report independence and compliance with home program. Goal 2: Pt. Will report of 2/10 or less right knee pain while walking/standing for long periods of time NOT MET Goal 3: Pt. Will demonstrate 0-120 degrees or greater right knee ROM to allow her to walk/stand for long periods of time to help her return to PLOF. NOT MET Goal 4: Pt. Will demonstrate normal left LE muscle flexibility to help improve her functional mobility to return to PLOF. NOT MET Goal 5: Pt. Will demonstrate 5/5 left knee strength grossly in all planes to allow her to walk/stand for long periods of time to help improve her functional mobility. NOT MET Goal 6: Pt. Will demonstrate normalized gait without assistive device to return to PLOF. NOT MET Will continue at 2x per week for 2 additional weeks then discharge with HEP. I hereby deem this POC medically necessary. Please sign below. Date: / documented in this encounter [facility] 09-02-2023 Consult note Note Date/Time September 02, 2023 8:13am [facility] [address] [place] [address] Physiatry (Rehab) Consult Note Signed Patient: Nadia Almeida MR#: [id number] : 1945 Acct:[id number] Age/Sex: 77 / F Adm Date: 4 Loc: 4N Room: [address] [place] [address] Type: REG SDC Attending Dr: Jeevan Sanchez [...] negative unless noted below or in HPI [facility] Medical History Depression Numbness and tingling of [...] mg PO QAM 05/22/21 [History Confirmed 09/01/23] eyxwmitcqhsp-xjyrtiqc-lhomjt tablet 1 tab PO DAILY 05/22/21 [History [...] MPV Neut % (Auto) Lymph % (Auto) Sabine % (Auto) Eos % (Auto) Baso % (Auto) Nucleat RBC Rel Count Neut # (Auto) Lymph # (Auto) Sabine # (Auto) Eos # (Auto) Baso # [...] % (Auto) 77.9 Lymph % (Auto) 14.7 Sabine % (Auto) 6.3 Eos % (Auto) 0.8 Baso % (Auto) 0.3 Nucleat RBC Rel Count 0.1 Neut # (Auto) 8.2 H Lymph # (Auto) 1.5 Sabine # (Auto) 0.7 Eos # (Auto) 0.1 [...] Explained postacute care options including inpatient rehab, alf, home with home health care or outpatient [...] chart, including current orders, allied health and dynamics ax consultant notes, labs/imaging and performed singh elements of exam and I formulated the plan of care and facilitated the medical decision making. I completed a substantive portion of this encounter, the medical decision makingportion of this note in its entirety, including Allied health note review, nursing note review, dynamics ax consultant note review, discussion with nursing and case management, and more than 50% of my time was spent on counseling and coordination of care, time spent 65 minutes Documented By: Vinnie Yin MD 09/02/23 0813 Signed By: <Electronically signed by Vinnie Yin MD> 09/02/23 3037 [facility] Work Phone: 1(174) 710-869707-23-2024 Progress note Author Jeevan Sanchez [facility] September 02, 2023 7:55am Note Date/Time September 02, 2023 7:55 am [facility] [address] [place] [address] Orthopedic Progress Note Signed Patient: Nadia Almeida MR#: [id number] : 1945 Acct:[id number] Age/Sex: 77 / F Adm Date: 4 Loc: 4N Room: [address] [place] [address] Type: REG SDC Attending Dr: Jeevan Sanchez [...] MPV Neut % (Auto) Lymph % (Auto) Sabine % (Auto) Eos % (Auto) Baso % (Auto) Nucleat RBC Rel Count Neut # (Auto) Lymph # (Auto) Sabine # (Auto) Eos # (Auto) Baso # [...] % (Auto) 77.9 Lymph % (Auto) 14.7 Sabine % (Auto) 6.3 Eos % (Auto) 0.8 Baso % (Auto) 0.3 Nucleat RBC Rel Count 0.1 Neut # (Auto) 8.2 H Lymph # (Auto) 1.5 Sabine # (Auto) 0.7 Eos # (Auto) 0.1 Baso # (Auto) 0.0 PHA Creatinine Clear Sodium Potassium Chloride Carbon Dioxide Anion Gap BUN Creatinine Est GFR (CKD-EPI) Glucose Calcium Blood Type Recheck AJ INPATIENT [facility] TJC Ambulation: 1 Yes, [...] signed by Jeevan Sanchez MD> 09/02/23 0755 [facility] Work Phone: 1(356) 589-642407-23-2024 Consult note Author Gm Manning [facility] September 02, 2023 2:33am Note Date/Time September 01, 2023 4:12 pm [facility] [address] [place] [address] Hospitalist Consult Note Signed Patient: Nadia Almeida MR#: [id number] : 1945 Acct:[id number] Age/Sex: 77 / F Adm Date: 4 Loc: 4N Room: 5A4207-7 Type: REG [facility] Attending Dr: Jeevan Sanhcez II, MD Copies to: MD Carlota Caceres II, APRN Marwan Wassouf, MD Robert M Carlisle, MD~ HPI DATE OF CONSULTATION: 09/01/23 REQUESTING [...] negative unless noted in the HPI above [facility] Medical History (Updated 09/01/23 @ 16:11 by [...] mg PO QAM 05/22/21 [History Confirmed 09/01/23] dulnxpwzadaz-qaiapjar-fqukif tablet 1 tab PO DAILY 05/22/21 [History [...] mg 09/01/23 17:00 Ferrous Sulfate 324 Mg Tablet. PO 08/31/24 16:59 BID.WITH.MEALS KENNETH Lactated Ringer's 1,000 mls @ 20 mls/hr 09/01/23 10:30 09/01/23 14:07 Lactated Ringers IV 09/02/23 10:29 20 mls/hr .Q24H ONE Infusion Cefazolin Sodium 2 gm in 50 mls @ 100 mls/hr 09/01/23 18:29 Ancef IV 09/02/23 02:58 Q8H KENNETH Lactated Ringer's 1,000 mls @ 75 mls/hr 09/01/23 15:30 09/01/23 16:01 Lactated Ringers IV 08/31/24 15:29 75 mls/hr .[id number] KENNETH Administration Lidocaine HCl 0.1 ml 09/01/23 10:30 Lidocaine 1% 50 Ml Vial INTRADERMA PREOP PRN Venipuncture x 1 Dose Mineral Oil 1 each 09/04/23 15:17 Mineral Oil ([place]) 1 Each Enema NM ONCE PRN Constipation Morphine Sulfate 15 mg [...] 40 mg 09/02/23 09:00 Pantoprazole 40 Mg Tablet. PO 10/01/23 09:01 DAILY KENNETH Polyethylene Glycol 17 gm 09/02/23 09:00 Polyethylene Glycol 3350 17 Gm Powd.Pack PO 09/09/23 08:59 DAILY KENNETH Prednisone 10 mg 09/02/23 09:00 Prednisone 10 Mg Tablet PO 10/01/23 09:01 DAILY KENNETH Prochlorperazine Maleate 10 mg 09/01/23 15:17 Prochlorperazine Maleate 5 Mg Tablet PO 08/31/24 15:16 Q6H PRN Nausea Senna/Docusate Sodium 2 tab 09/02/23 09:00 Sennosides/Docusate 8.6-50mg 1 Tab Tablet PO 10/02/23 08:59 DAILY KENNETH Sodium Chloride 0 ml 09/01/23 10:30 Sodium Chloride 0.9 % 10 Ml Syringe IV-PUSH 08/31/24 10:29 PRN PRN Flush Sodium Chloride 0 ml 09/01/23 10:30 Sodium Chloride 0.9 % 10 Ml Syringe IV-PUSH 08/31/24 10:29 PRN PRN Flush Sodium Chloride 0 ml 09/01/23 22:00 Sodium Chloride 0.9 % 10 Ml Syringe IV-PUSH 08/31/24 21:59 QSHIFT KENNETH Temazepam 7.5 mg 09/01/23 15:17 Temazepam 7.5 Mg Capsule PO 02/28/24 15:16 QHS PRN Insomnia Tramadol HCl 50 mg 09/01/23 15:17 Tramadol 50 Mg Tablet PO 01/18/25 15:16 Q6H PRN Pain Scale 1 - [...] <Electronically signed by Gm Manning MD> 09/02/23 0233 [facility] Work Phone: 1(162) 419-516705-01-2023 NoteHNO ID: [id number] Author: Garrett Beltrán MD Service: ? Author Type: Physician Type: Progress Notes Filed: 06/16/2022 4:20 PM Note Text: NAME: Nadia Almeida CLINIC NO.: [id number] DATE OF SERVICE: June 10, 2022 (Benny) Some elements in this clinic note that are critical to medical decision making have been carefully reviewed and included from a prior clinic note dated: June 04, 2021 Referring Provider: Shaw Francois II CC: Right breast cancer ER/NM positive, HER-2/crescencio negative diagnosed May 2011. ASSESSMENT: [...] ductal carcinoma with DCIS. Receptor status ER NM positive. HER-2/crescencio was negative. [place] lymph nodes were negative. 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 Wyabishlqtpet-Talgqyot-Rltbut (CENTRUM SILVER) tab Take 1 tablet by [...] Value 06/04/2021 173 MPV (fL) Date Value (more content not included)...[facility]05-01-2023 Instructions* Patient Instructions* Garrett Beltrán MD - 06/10/2022 11:07 AM EDT RTC PRN Order mammogram Left side in 1 year but CC: to Dr. Francois and Follow up with Dr. Francois for labs and exam in 1 year. [facility] History of Present illness Narrative* Garrett Beltrán MD - 06/10/2022 10:21 AM EDT Images from the original note were not included. NAME: Almeida, [facility] NO.: [id number] DATE OF SERVICE: June 10, 2022 (Benny) Some elements in this clinic note that are critical to medical decision making have been carefully reviewed and included from a prior clinic note dated: June 04, 2021 Referring Provider: Shaw Francois II CC: Right breast cancer ER/NM positive, HER-2/crescencio negative diagnosed May 2011. ASSESSMENT: [...] ductal carcinoma with DCIS. Receptor status ER NM positive. HER-2/crescencio was negative. [place] lymph nodes were negative. 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 Wqcisiydnjtfs-Ukhslxym-Tzresf (CENTRUM SILVER) tab Take 1 tablet by [...] Plan: CBC + DIFF, COMP METABOLIC PANEL, [facility] SCREENING (C50.911, Z17.0) Malignant 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, estrogen receptor positive, unspecified site of breast (HCC) PAST MEDICAL HISTORY Diagnosis Date Breast cancer, right breast (HCC) 04/2011 T1N0Mx - stage 1, ER+NM+HER2- HTN (hypertension) PAST SURGICAL HISTORY Procedure Laterality [...] which included preparing to see the patient, kazt-gz-iqrb patient care, completing clinical documentation, performing a medically appropriate examination and ordering medications, tests, or procedures. Garrett Beltrán MD, [place], [place] CC: Shaw Francois II, MD [address] [facility] [address] [facility] [id number] documented in this encounterA[facility] History of Present illness Narrative* Garrett Beltrán MD - 06/04/2021 10:47 AM EDT Images from the original note were not included. NAME: Nadia Almeida [facility] NO.: [id number] DATE OF SERVICE: June 04, 2021 Some elements in this clinic note that are critical to medical decision making have been carefully reviewed and included from a prior clinic note dated: December 04, 2020 Referring Provider: Shaw Francois II CC: Right breast cancer ER/NM positive, HER-2/crescencio negative diagnosed May 2011. ASSESSMENT: [...] ductal carcinoma with DCIS. Receptor status ER NM positive. HER-2/crescencio was negative. [place] lymph nodes were negative. 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 Tpjahymlrtbqp-Nbtmuvzo-Qxoiyr (CENTRUM SILVER) ORAL Tab Take 1 tablet [...] breast (HCC) 04/2011 T1N0Mx - stage 1, ER+NM+HER2- HTN (hypertension) PAST SURGICAL HISTORY Procedure Laterality [...] which included preparing to see the patient, veer-gn-scki patient care, completing clinical documentation, performing a medically appropriate examination and ordering medications, tests, or procedures. Garrett Beltrán MD, CPE [facility] [place], [place] CC: Shaw Francois II, MD [address] [facility] [address] [facility] [id number] documented in this encounterAdena [facility]-25-[facility] Nurse Note* Ethel Cervantes MA - 06/04/2021 10:20 AM EDT Patient would like a breast exam states it has been awhile since one was performed. Ethel Cervantes MA documented in this encounterAdena [facility] CenterEvalubay[facility] [place] noteNo assessment information availableMckitrick [facility] Work Phone: evaluation note* Diagnosis Breast screening- Primary Breast screening, unspecified Malignant 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, estrogen receptor positive, unspecified site of breast (HCC) Abnormal breath sounds Abnormal chest sounds Elevated hemidiaphragm Disorders of diaphragm documented in this encounter [facility] note* Diagnosis History of breast cancer- Primary Personal history of malignant neoplasm of breast Breast screening Breast screening, unspecified Malignant 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, estrogen receptor positive, unspecified site of breast (HCC) documented in this encounter [facility] note* Diagnosis Onset Date Resolution Status Osteoarthritis of right knee acute [facility] Work Phone: Evaluation note* Diagnosis Onset Date Resolution Status Osteoarthritis of right knee acute Osteoarthritis of right knee acute [facility] Work Phone: Evaluation note* Diagnosis Onset Date Resolution Status Osteoarthritis of right knee acute Osteoarthritis of right knee acute Osteoarthritis of right knee acute [facility] Work Phone: Evaluation note* Diagnosis Onset Date Resolution Status Osteoarthritis of right knee acute Osteoarthritis of right knee acute Osteoarthritis of right knee acute Hypertension acute Impaired mobility and activities of daily living acute Osteoarthritis of right knee acute Postoperative pain acute Status post total right knee replacement acute [facility] Work Phone: Evaluation note* Diagnosis Onset [...] Status post total right knee replacement acute [facility] Work Phone: Evaluation note* Diagnosis Onset Date Resolution Status Osteoarthritis of right knee acute Osteoarthritis of right knee acute Hypertension acute Impaired mobility and activities of daily living acute Osteoarthritis of right knee acute Postoperative pain acute Status post total right knee replacement acute Aftercare following right knee joint replacement surge ry acute Status post total right knee replacement acute [facility] Work Phone: Evaluation note* Diagnosis Onset [...] Status post total right knee replacement acute [facility] Work Phone: Evaluation note* Diagnosis Onset [...] Status post total right knee replacement acute [facility] Work Phone: Evaluation note* Diagnosis Acute [...] right knee joint replacement surge ry acute [facility] Work Phone: Evaluation note* Diagnosis Closed fracture of neck of left femur, initial encounter ([facility] Acute pain of right knee- Primary Aftercare following right knee joint replacement surgery Knee stiffness, right documented in this encounter [facility]* Diagnosis Closed fracture of left hip with routine healing, subsequent encounter- Primary Depressive disorder (CMS/HCC) Depressive disorder, not elsewhere classified documented in this encounter [facility] HealthcareEvaluation note* Diagnosis Closed fracture of left hip with routine healing, subsequent encounter documented in this encounter [facility] HealthcareReason for referral (narrative)* Diagnostic Procedure Only (Routine) - Pending Review Specialty Diagnoses / Procedures Referred By Mj mireles Referred To Contact [facility] Diagnoses Breast screening Malignant 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, estrogen receptor positive, unspecified site of breast (HCC) Procedures TORRES SCREENING SCREENING MAMMOGRAPHY BI 2-VIEW BREAST INC Garrett Joyce MD [facility] [place] [address] [facility] [address] [place] [address] Referral ID Status Reason Start Date Expiration Date Visits Requested Visits Authorized [id number] Pending Review Auto-Generat ed Referral 05/31/2022 07/04/2022 1 1 T [facility] for referral (narrative)* Diagnostic Procedure Only (Routine) - Pending Review Specialty Diagnoses / Procedures Referred By Mj mireles Referred To Contact [facility] Diagnoses Breast screening Procedures TORRES SCREENING SCREENING MAMMOGRAPHY BI 2-VIEW BREAST INC Garrett Joyce MD [address] [place] [address] [facility] [address] [place] [address] Referral ID Status Reason Start Date Expiration Date Visits Requested Visits Authorized [id number] Pending Review Auto-Generat ed Referral 06/11/2023 07/10/2023 1 1 [facility] Summary Purpose Family History No Family History [...] Documents on File Type Date Recorded 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 Advance Directive(s) 06/03/2016 2:33 PM [...] section and content) DATE CREATED AUTHOR 07/31/2017 [facility] DATE CREATED AUTHOR AUTHOR'S ORGANIZ ATION 09/29/2019 [facility] DATE CREATED AUTHOR AUTHOR'S ORGANIZ ATION 11/15/2019 [facility] DATE CREATED AUTHOR AUTHOR'S ORGANIZ ATION 04/27/2021 [facility] dical Specialist DATE CREATED AUTHOR AUTHOR'S ORGANIZ ATION 06/04/2022 [facility] DATE CREATED AUTHOR AUTHOR'S ORGANIZ ATION 06/17/2022 [facility] DATE CREATED AUTHOR AUTHOR'S ORGANIZ ATION 11/27/2023 [facility] DATE CREATED AUTHOR AUTHOR'S ORGANIZ ATION 01/21/2024 Lorena rojas DATE CREATED AUTHOR AUTHOR'S ORGANIZ ATION 02/05/2024 [facility] dical Specialists EPIC Care Teams (unrecognized sec [...] 2023 End: September 02, 2023 Nancy Chaparro , DEBI Other Provider Active Star t: September 01, 2023 End: September 02, 2023 Samantha Anderson , DEBI Other Provider Active Start : September 01, 2023 End: September 02, 2023 Naila Orona , DEBI Other Provider Active Star t: September 01, 2023 End: September 02, 2023 Ada Farfan RN Other Provider Active Start: J ariana 2023 End: September 02, 2023 Huyen Velasco RN Other Provider Active Start: Edie berg 2023 [...] Jordan MD Other Provider Active Start: J ariana 2023 End: September 02, 2023 Halle Salmeron APRN Other Provider Active Start: September 01, 2023 End: September 02, 2023 Gm Manning MD Other Provider Active Start: September 01, 2023 End: September 02, 2023 Fabricio Gagnon MD Other Provider Active Start: J ariana 2023 End: September 02, 2023 Makenna Terrazas MD Other Provider Active Start: September 01, 2023 End: September 02, 2023 Gunnar Barone MD Other Provider Active Start: September 01, 2023 End: September 02, 2023 Toy Prince DO Other Provider Active Start: September 01, 2023 End: September 02, 2023 Jeremi Gaytan MD Other Provider Active Start: Ju ly 2023 End: September 02, 2023 Prakash Bañuelos MD Other Provider Active Start: Aug End: September 02, 2023 Yasmin Lyons NP-C Other Provider Active St art: September 01, [...] Quinteros MD Other Provider Active Start: Marshal ariana 2023 End: September 02, 2023 Lesli Garcia DO Other Provider Active Start: Ju ly 2023 End: September 02, 2023 Ferdinand Osorio DO Other Provider Active Start : September [...] Start: J 2023 End: September 02, 2023 Shaw Coronado [...] Start: J 2023 End: September 02, 2023 Neeraj Pham MD Other Provider Active Start: Edie ly 2023 End: September 02, 2023 Sofía Thornton RN Other Provider Active Start: J 2023 End: September 02, 2023 Vinnie Yin MD Other Provider Active Start: J 2023 End: September 02, 2023 Team Status: Active Member Role Status Dates Shaw Francois II MD Primary Care Provider Active Start: September 02, 2023 Jeevan Sanchez II, MD Other Provider Active S tart: September 02, 2023 Nancy Chaparro RN Other Provider Active Star t: September 02, 2023 Samantha Anderson , DEBI Other Provider Active Start : September 02, 2023 Naila Orona RN Other Provider Active Star t: September 02, 2023 Ada Farfan RN Other Provider Active Start: J 2023 Huyen Velasco RN Other Provider Active Start: Edie ly 2023 Daryn Rowland MD Other Provider Active Start: September 02, 2023 Amy Zacarias , Other Provider Active Start : September 02, 2023 Rufino Valdovinos MD Other Provider Active Start : September 02, 2023 Trevor Bloom , Other Provider Active Start: September 02, [...] Other Provider Active Start: Aug Yasmin Lyons , HISTOLOGY MANAGER-C Other Provider Active St art: September 02, [...] Maik Quinteros MD Other Provider Active Start: 2023 Lesli Garcia DO Other Provider Active [...] tart: September 02, 2023 Yovani Quintana , DO Other Provider Active Star t: September 02, 2023 Mayda Disla , Other Provider Active Start: September 02, 2023 Bonilla Lozada MD Other Provider Active Start: September 02, 2023 Vargas Ambriz MD Other Provider Active Start: September 01 Allison Tejada APRN Other Provider Active Star t: September 02, 2023 Merrick Cheng MD Other Provider Active Start: 2023 Neeraj Pham MD Other Provider Active Start: Edie berg 2023 Sofía Thornton RN Other Provider Active Start: 2023 Vinnie Yin MD Attending Provider, Other Provider Active Start: September 02, 2023 Team Status: Inactive Member Role Status Dates Shaw Francois II MD Primary Care Provider Active Start: September 18, 2023 End: September 18, 2023 SOM Cisse Attending Provider Active Start: September 18, 2023 [...] Active Naya Weber DO Attending Provider Active Starchmaker Relationship Specialty Start Date End Date Shaw Francois MARIA ELENA [address] [place] [address] PCP - General Internal Medicine 01/15/16 Starchmaker Relationship Specialty Start Date End Date Alessandro Shawscott Carmona II [address] [place] [address] PCP - General Internal Medicine 01/15/16 Team [...] Attending Provider Active Start: October 15, 2023 Starchmaker Relationship Specialty Start Date End Date Shaw Francois MD [address] [place] [address] PCP - General Internal Medicine 07/23/22 Shaw Francois MD [address] [place] [address] PCP - Helena PETERS 02/10/23 Starchmaker Relationship Specialty Start Date End Date Shaw Francois MD [address] [place] [address] PCP - General Internal Medicine 07/23/22 Shaw Francois MD [address] [place] [address] PCP - Helena PETERS 02/10/23 Starchmaker Relationship Specialty Start Date End Date Shaw Francois MD [address] [place] [address] PCP - General Internal Medicine 07/23/22 Shaw Francois MD [address] [place] [address] PCP - Helena PETERS 02/10/23 Starchmaker Relationship Specialty Start Date End Date Shaw Francois MD [address] [place] [address] PCP - General Internal Medicine 07/23/22 Shaw Francois MD [address] [place] [address] PCP - Helena PETERS 02/10/23 Starchmaker Relationship Specialty Start Date End Date Shaw Francois MD [address] [place] [address] PCP - General Internal Medicine 07/23/22 Shaw Francois MD [address] [place] [address] PCP - Helena PETERS 02/10/23 Starchmaker Relationship Specialty Start Date End Date Shaw Francois MD [address] [place] [address] PCP - General Internal Medicine 07/23/22 Shaw Francois MD [address] [place] [address] PCP - Helena PETERS 02/10/23 Starchmaker Relationship Specialty Start Date End Date Shaw Oconnor MD [address] [address] PCP - General Family Medicine 01/16/24 Starchmaker Relationship Specialty Start Date End Date Shaw Oconnor MD [address] [address] PCP - General Family Medicine 01/16/24 Starchmaker Relationship Specialty Start Date End Date Shaw Francois MD [address] [place] [address] PCP - General Internal Medicine 07/23/22 Shaw Francois MD [address] [place] [address] PCP - Helena PETERS 02/10/23 Starchmaker Relationship Specialty Start Date End Date Shaw Francois MD [address] [place] [address] PCP - General Internal Medicine 07/23/22 Shaw Francois MD [address] [place] [address] PCP - Helena PETERS 02/10/23 Starchmaker Relationship Specialty Start Date End Date Shaw Francois MD [address] [place] [address] PCP - General Internal Medicine 07/23/22 Shaw Francois MD [address] [place] [address] PCP - Helena PETERS 02/10/23 Starchmaker Relationship Specialty Start Date End Date Shaw Francois MD [address] [place] [address] PCP - General Internal Medicine 07/23/22 Shaw Francois MD [address] [place] [address] PCP - Helena PETERS 02/10/23 Starchmaker Relationship Specialty Start Date End Date Shaw Francois MD [address] [place] [address] PCP - General Internal Medicine 07/23/22 Shaw Francois MD [address] [place] [address] PCP Areli Malik MA 02/10/23 Starchmaker Relationship Specialty Start Date End Date Shaw Francois MD [address] [place] [address] PCP - General Internal Medicine 07/23/22 Shaw Francois MD [address] [place] [address] PCP - Helena PETERS 02/10/23 Starchmaker Relationship Specialty Start Date End Date Shaw Francois MD [address] [place] [address] PCP - General Internal Medicine 07/23/22 Shaw Francois MD [address] [place] [address] PCP - Helena PETERS 02/10/23 Goals (unrecognized section and content) Goals [...] or prosecute any alcohol or drug abuse patient.[facility] the event this information is protected by the Federal Confidentiality of Alcohol and Drug Abuse Patient Records regulations: The Federal rules restrict any use of the information to criminally investigate or prosecute any alcohol or drug abuse patient.[facility] Reason for Visit (unrecogniz ed section and content) Reason Comments Breast Cancer 6 month follow up Reason Comments Breast Cancer 1 year follow up Specialty Diagnoses / Procedures Referred By Contac t Referred To Contact Physical Therapy Diagnoses Pain in right knee Procedures NM PHYSICAL THERAPY EVALUATION LOW COMPLEX 20 MINS Frannie Díaz [address] [place] [address] Jackie Persaud, PT 112 [facility] [address] [place] [address] Referral ID Status Reason Start Date Expiration Date Visits Requested Visits Authorized [id number] Authorized Consult and Treat 11/05/2023 02/02/2024 12 12 Referral ID Status Reason Start Date Expiration Date V isits Requested Visits Authorized [id number] Closed Consult and Treat 11/05/2023 02/02/2024 12 12 Specialty Diagnoses / Procedures Referred By Contac t Referred To Contact Physical Therapy Diagnoses Right Total Knee Arthroplasty Procedures NM PHYSICAL THERAPY EVALUATION LOW COMPLEX 20 MINS Frannie D[address]az [address] [place] [address] Jackie Persaud, PT [address] [address] Referral ID Status Reason Start Date Expiration Date V isits Requested Visits Authorized [id number] Authorized 09/24/2023 03/17/2024 12 12 Referral ID Status Reason Start Date Expiration Date Visits Re quested Visits Authorized [id number] Closed 09/24/2023 03/17/2024 12 12 Reason Comments Follow-up TB stay 12/25/23- 1 02/27/23 for left femur fracture discharged to [facility] for rehab discharged home 01/17/24 Med [facility] [place] FOR RECORDS PERTAINING TO PATIENTS WHO ARE [...] BE BASED ON THE PRIMARY CLINICAL RECORDS. [facility]. provides no warranty or guarantee of the accuracy or completeness of information in this document.
--- NOTE | 2024-02-21 11:52 | XR_ITS ---
The [address] [address] Patient Name: ASHLYN CHIN MRN: [id number] date: 1945 Sex: F Assigned Patient Location: ER Current Patient Location: ER Accession/Order Number: [id number] Exam Date: 02/21/2024 12:18 Report Date: 02/21/2024 13:09 At the request of: RUTH ANN BAEZ Procedure: XR hip LT min 2V EXAM: XR hip LT min 2V HISTORY: Postoperative pain COMPARISON: Left hip postoperative 12/26/2023. Pelvis and left hip preoperative 12/25/2023. TECHNIQUE: AP, frog lateral left hip. FINDINGS: Left hip replacement hardware intact and unchanged. Opaque cement surrounds the femoral stem unchanged. No developing lucency to suggest loosening. No fracture or healing fracture seen. Sclerosis around the symphysis felt to be chronic. No new abnormality in the acetabulum. XR/XR hip LT min 2V IMPRESSION: Left hip replacement hardware intact without evidence of loosening. No new or acute appearing fracture or healing fracture seen Electronically authenticated by: ANEESH RUSSO Date: 02/21/2024 13:09
--- NOTE | 2024-02-21 11:54 | ED_ITS ---
HPI HPI - General Adult General Chief complaint: Skin/Abscess/Foreign Body Stated complaint: INFECTION POST SURGERY HIP AREA Time Seen by Provider: 02/21/24 11:36 Source: patient Mode of arrival: Wheelchair Limitations: no limitations History of Present Illness HPI narrative: 78-year-old female presents to the emergency department for pain in her left hip area. She had left hip replacement in mid December, nearly 2 months ago. For the past 4 days she has had some pain in that area but it was not precipitated by any trauma. She has noticed that its become red and firm. No history of fever. Related Data Home Medications ?Medication ?Instructions ?Recorded ?Confirmed levothyroxine 125 mcg tablet 125 mcg PO .ACB 12/26/23 02/21/24 losartan 25 mg tablet 25 mg PO QAM 12/26/23 02/21/24 sertraline 100 mg tablet 50 mg PO .QD 12/26/23 02/21/24 Previous Rx's ?Medication ?Instructions ?Recorded acetaminophen 500 mg tablet 1,000 mg (2 x 500 mg) PO Q6H PRN 12/29/23 Pain Scale 4-6 3 days #12 tabs aspirin 81 mg capsule 81 mg PO DAILY #14 caps 12/29/23 baclofen 10 mg tablet 10 mg PO BID PRN Spasms 2 days #4 12/29/23 tabs carbamide peroxide 6.5 % ear drops 7 drp otic (ear) BID 7 days #1 mL 12/29/23 (Ear Wax Removal Drops) cephalexin 500 mg capsule 500 mg PO BID 7 days #14 caps 12/29/23 hydrocodone 5 mg-acetaminophen 325 1 tab PO Q4H PRN Pain 2 days #12 12/29/23 mg tablet tabs Allergies Allergy/AdvReac Type Severity Reaction Status Date / Time Sulfa (Sulfonamide Allergy Intermediate Hives Verified 12/25/23 15:41 Antibiotics) Opioid HPI Opioid Management Most Recent Opioid Data: Last Pain Scale 8 02/21/24 11:52 02/21/24 Last Pain Intensity 6 12/28/23 08:02 12/28/23 Last ORT Total Score 0 12/27/23 00:08 12/27/23 Last ORT Risk Category Low Risk 12/27/23 00:08 12/27/23 Review of Systems ROS Narrative A ten point review of systems is negative except as noted above. PFSH PFSH Medical History (Updated 02/21/24 @ 13:22 by Justin Fung MD) Depression ?F32.A - Depression, unspecified (ICD-10) Hypothyroidism (acquired) ?E03.9 - Hypothyroidism, unspecified (ICD-10) Primary hypertension ?I10 - Essential (primary) hypertension (ICD-10) Surgical History (Updated 12/29/23 @ 04:29 by Zoraida Hoyos RN) History of left hip hemiarthroplasty ?Z96.642 - Presence of left artificial hip joint (ICD-10) History of total right knee replacement ?Z96.651 - Presence of right artificial knee joint (ICD-10) Social History Highest level of school completed/degree received: high school graduate Little interest or pleasure in doing things: not at all Feeling down, depressed, or hopeless: not at all Exam Narrative Exam Narrative: Nurses note and vital signs reviewed and patient is not hypoxic. General: The patient appears well and in no apparent distress. Patient is resting comfortably on cart. Skin: Warm, dry, no pallor noted. There is no rash noted. Head: Normocephalic, atraumatic Eye: Normal conjunctiva, no drainage Ears, Nose, Mouth, and Throat: oral mucosa is moist. Nares patent. Cardiovascular: Regular Rate and Rhythm Respiratory: Patient is in no distress, no accessory muscle use, lungs are clear to auscultation, no wheezing, rales or rhonchi Back: non-tender GI: Soft and nontender Musculoskeletal: The left hip is examined. The surgical wound is well-healed and has no open area and there is no drainage. The length of the surgical incision is erythematous and it extends anteriorly approximately 2 inches from it. This area is firm but there is no fluctuance Neurological: A&O, normal speech Psychiatric: Cooperative Constitutional Vital Signs, click to edit/add: Last Vital Signs Temp 97.9 F 02/21/24 11:38 Pulse 98 H 02/21/24 11:38 Resp 18 02/21/24 11:38 BP 135/67 02/21/24 11:38 Pulse Ox 96 02/21/24 11:38 O2 Del Method Room Air 02/21/24 11:38 Course Vital Signs Vital signs: Vital Signs Temperature 97.9 F 02/21/24 11:38 Pulse Rate 98 H 02/21/24 11:38 Respiratory Rate 18 02/21/24 11:38 Blood Pressure 135/67 02/21/24 11:38 Pulse Oximetry 96 02/21/24 11:38 Oxygen Delivery Method Room Air 02/21/24 11:38 Temperature 97.9 F 02/21/24 11:38 Pulse Rate 98 H 02/21/24 11:38 Respiratory Rate 18 02/21/24 11:38 Blood Pressure 135/67 02/21/24 11:38 Pulse Oximetry 96 02/21/24 11:38 Oxygen Delivery Method Room Air 02/21/24 11:38 Medical Decision Making MDM Narrative Medical decision making narrative: Cellulitis is identified, with WBC is 15,000. Blood cultures were obtained and she was started on IV antibiotics. Case discussed with Dr. Shore as well. Treatment diagnosis and disposition were discussed with the patient and her family. I have no clinical suspicion of an abscess. Differential Diagnosis Differential Diagnosis: Cellulitis, abscess Lab Data Lab results reviewed: Yes I reviewed the patient's lab results Labs: Lab Results 02/21/24 Range/Units 11:48 WBC 14.8 H (4.0-11.0) 10^3/uL RBC 4.09 L (4.20-5.40) 10^6/uL Hgb 12.2 (12.0-16.0) g/dL Hct 36.1 (36.0-48.0) % MCV 88.3 (81.0-99.0) fL MCH 29.8 (26.7-34.0) pg MCHC 33.8 (29.9-35.2) g/dL RDW 12.2 (11.0-15.0) % Plt Count 262 (150-450) 10^3/uL MPV 8.9 L (9.5-13.5) fL Neut % (Auto) 81.9 H (43.0-75.0) % Lymph % (Auto) 9.2 L (20.5-60.0) % Hutchinson % (Auto) 5.9 (1.7-12.0) % Eos % (Auto) 0.5 L (0.9-7.0) % Baso % (Auto) 0.3 (0.2-2.0) % Neut # (Auto) 12.1 H (1.4-6.5) 10^3/uL Lymph # (Auto) 1.4 (1.2-3.8) 10^3/uL Hutchinson # (Auto) 0.9 H (0.3-0.8) 10^3/uL Eos # (Auto) 0.1 (0.0-0.7) 10^3/uL Baso # (Auto) 0.0 (0.0-0.1) 10^3/uL Abs Immat Gran (auto) 0.32 H (0.00-0.03) 10^3/uL Imm/Tot Granulo (auto) 2.2 H (0.0-0.5) % Sodium 138 (136-145) mmol/L Potassium 3.3 L (3.5-5.1) mmol/L Chloride 101 (98-107) mmol/L Carbon Dioxide 26.3 (21.0-32.0) mmol/L Anion Gap 14.0 BUN 11.0 (7.0-18.0) mg/dL Creatinine 0.98 (0.55-1.02) mg/dL Est GFR ( Amer) >60 (>=60 mL/min/1.73m^2) Est GFR (Non-Af Amer) 55 L (>=60 mL/min/1.73m^2) BUN/Creatinine Ratio 11.2 Glucose 154 H (74-106) mg/dL Calcium 8.8 (8.5-10.1) mg/dL Imaging Data Left hip: Radiologist's impression: ITS Impressions Hip X-Ray 02/21/24 11:52 IMPRESSION: Left hip replacement hardware intact without evidence of loosening. No new or acute appearing fracture or healing fracture seen Electronically authenticated by: ANEESH RUSSO Date: 02/21/2024 13:09 Discharge Plan Discharge Chief Complaint: Skin/Abscess/Foreign Body Clinical Impression: Cellulitis Patient Disposition: Admitted As Inpatient Time of Disposition Decision: 13:21 Condition: Good
[2024-02-21 12:09] LABS: Basophils Percent Auto 0.3 % (0.2-2.0); Eosinophils Absolute Auto 0.1 10^3/uL (0.0-0.7); Eosinophils Percent Auto 0.5 % (0.9-7.0); Hematocrit 36.1 % (36.0-48.0); Hemoglobin 12.2 g/dL (12.0-16.0); Immature Granulocytes Abs Auto 0.32 10^3/uL (0.00-0.03); Immature Granulocytes Pct Auto 2.2 % (0.0-0.5); Lymphocytes Absolute Auto 1.4 10^3/uL (1.2-3.8); Lymphocytes Percent Auto 9.2 % (20.5-60.0); Mean Corpuscular HGB Conc 33.8 g/dL (29.9-35.2); Mean Corpuscular Hemoglobin 29.8 pg (26.7-34.0); Mean Corpuscular Volume 88.3 fL (81.0-99.0); Mean Platelet Volume 8.9 fL (9.5-13.5); Monocytes Absolute Auto 0.9 10^3/uL (0.3-0.8); Monocytes Percent Auto 5.9 % (1.7-12.0); Neutrophils Absolute Auto 12.1 10^3/uL (1.4-6.5); Neutrophils Percent Auto 81.9 % (43.0-75.0); Platelet Count 262 10^3/uL (150-450); Red Blood Count 4.09 10^6/uL (4.20-5.40); Red Cell Distribution Width 12.2 % (11.0-15.0); White Blood Count 14.8 10^3/uL (4.0-11.0)
[2024-02-21 12:19] LABS: BUN Creatinine Ratio 11.2; Calcium 8.8 mg/dL (8.5-10.1); Carbon Dioxide 26.3 mmol/L (21.0-32.0); Chloride 101 mmol/L (98-107); Estimated GFR (African America >60 (>=60 mL/min/1.73m^2); Estimated GFR (Non-African Ame 55 (>=60 mL/min/1.73m^2); Glucose 154 mg/dL (74-106); Potassium 3.3 mmol/L (3.5-5.1); Sodium 138 mmol/L (136-145)
[2024-02-21] MEDS: MORPHINE SULFATE 4 MG/ML VIAL IV (13:22)
[2024-02-21 13:36] VITALS: BP 121/53; PULSE 80; O2SAT 95
--- NOTE | 2024-02-21 13:55 | P.HP_ITS ---
HPI H&P: HPI History of Present Illness Chief complaint: INFECTION POST SURGERY HIP AREA, CELLULITIS Narrative: Patient is a 78 y.o white female with past medical history of depression, Hypertension, and hypothyroidism. She suffered a traumatic fracture of the left hip in December of this year and underwent a left hemiarthroplasty on 12/26/23. She went to inpatient rehab at the [facility] for a time and has since has been home. She notes pain and redness of the left hip that started a week ago. She denies fevers or chills until yesterday. She denies problems walking, or bearing weight on the hip. She states maybe she hit her hip in the shower last week. She came to the ER today with increased pain and redness, with subjective fever and chills. ER findings: WBC's 14.8, Cr 0.98, potassium 3.3, Hb 12.2 , platelets 262, hip X- ray shows no acute pathology with normal healing and hardware of the left hip Patient was admitted for left hip cellulitis Opioid HPI Opioid Management Most Recent Pain and Opioid Data: Last Pain Scale 4 02/21/24 17:23 02/21/24 Last Pain Intensity 6 12/28/23 08:02 12/28/23 Last Pain Assessment 02/21/24 17:23 Last ORT Total Score 1 02/21/24 14:06 02/21/24 Last ORT Risk Category Low Risk 02/21/24 14:06 02/21/24 Review of Systems ROS Narrative ROS: a complete review of systems were reviewed with patient and are positive as below or listed in History of Chief Complaint. General fever, chills, no night sweats Head: no headache, trauma, visual changes, nausea or vomiting Skin: redness to the skin of the right hip Eyes: no blurriness of vision Ears: no reported hearing loss, vertigo, earache, or tinnitus Throat: no sore throat, hoarseness, swelling of neck, or tongue pain Heart: no chest pain Lungs: no shortness of breath or cough GI: no diarrhea or vomiting/nausea Urinary: no urinary urgency, frequency or pain Neuro: no numbness or tingling HEM: no bleeding issues or bruising ENDO: no thyroid problems Psych: no anxiety or depression PFSH PFS Medical History (Updated 02/21/24 @ 14:02 by Cathi Rios DO) Depression ?F32.A - Depression, unspecified (ICD-10) Hypothyroidism (acquired) ?E03.9 - Hypothyroidism, unspecified (ICD-10) Primary hypertension ?I10 - Essential (primary) hypertension (ICD-10) Surgical History History of left hip hemiarthroplasty ?Z96.642 - Presence of left artificial hip joint (ICD-10) History of total right knee replacement ?Z96.651 - Presence of right artificial knee joint (ICD-10) Family History (Updated 02/21/24 @ 14:58 by Lizeth Diaz) Sister Family history of cancer Social History (Updated 02/21/24 @ 15:00 by Lizeth Diaz) Within the past year, how often did you have a drink containing alcohol: monthly or less Within the past year, how many standard drinks containing alcohol did you have on a typical day: 1 or 2 Within the past year, how often did you have six or more drinks on one occasion: never Total score: 0 Score interpretation: A score less than 3 is consistent with normal alcohol consumption. Smoking status: Never smoker Second hand tobacco smoke exposure: No Non-prescribed substance use: denies use Previous occupational history: Retired from [employer] Known occupational exposures/hazards: No Highest level of school completed/degree received: high school graduate Do you want help with school or training: No Are you now , , , , never or living with a partner: In a typical week, how many times do you talk on the telephone with family, friends, or neighbors: 3 or more times per week How often do you get together with friends or relatives: 3 or more times per week How often do you attend jew or roman catholic services: 4 or more times per year Do you belong to any clubs or organizations such as jew groups unions, fraternal or athletic groups, or school groups: no Total score: 3 Score interpretation: A score of greater than or equal to 2 indicates the lowest level of social isolation. Little interest or pleasure in doing things: not at all Feeling down, depressed, or hopeless: nearly every day Feel stressed/tense/nervous/anxious/difficulty sleeping: only a little Life stressors: other Life stressor details: left hip and right knee issues Due to disability, difficulty making decisions: No Do you think of yourself as: straight/heterosexual Gender Identity: female Meds Home Medications and Allergies Home Medications ?Medication ?Instructions ?Recorded ?Confirmed ?Type levothyroxine 125 mcg tablet 125 mcg PO .ACB 12/26/23 02/21/24 History losartan 25 mg tablet 25 mg PO QAM 12/26/23 02/21/24 History sertraline 100 mg tablet 50 mg PO .QD 12/26/23 02/21/24 History acetaminophen 500 mg tablet 1,000 mg (2 x 500 mg) PO Q6H PRN 12/29/23 Rx Pain Scale 4-6 3 days #12 tabs aspirin 81 mg capsule 81 mg PO DAILY #14 caps 12/29/23 02/21/24 Rx baclofen 10 mg tablet 10 mg PO BID PRN Spasms 2 days #4 12/29/23 02/21/24 Rx tabs carbamide peroxide 6.5 % ear drops 7 drp otic (ear) BID 7 days #1 mL 12/29/23 Rx (Ear Wax Removal Drops) hydrocodone 5 mg-acetaminophen 325 1 tab PO Q4H PRN Pain 2 days #12 12/29/23 02/21/24 Rx mg tablet tabs Allergies Allergy/AdvReac Type Severity Reaction Status Date / Time Sulfa (Sulfonamide Allergy Intermediate Hives Verified 12/25/23 15:41 Antibiotics) Exam Narrative Exam Narrative: General: Patient is alert, and oriented to person, place and time with normal affect, proper hygiene Skin: erythema around and extending down the length of the scar of the left hip Head: atraumatic, acephalic Eyes: PERRLA, no nystagmus present, conjunctiva clear, no scleral icterus Ears: normal gross auditory acuity Heart: Normal rate and rhythm, no murmurs/rubs/gallops Lungs: no audible wheezes, crackles and normal breath sounds all lung mendes Abdomen: Normal audible bowel sounds, no distension, No palpable masses, no organomegaly, no rebound/guarding/ or rigidity Musculoskeletal: no swelling bilateral lower extremities Neuro: CN II-X grossly intact Constitutional Vital Signs, click to edit/add: Last Vital Signs Temp 97.9 F 02/21/24 11:38 Pulse 80 02/21/24 13:36 Resp 18 02/21/24 13:36 BP 121/53 01/11/25 13:36 Pulse Ox 95 02/21/24 13:36 O2 Del Method Room Air 02/21/24 11:38 Results Labs Labs: Short CBC 02/21/24 Range/Units 11:48 WBC 14.8 H (4.0-11.0) 10^3/uL Hgb 12.2 (12.0-16.0) g/dL Hct 36.1 (36.0-48.0) % Plt Count 262 (150-450) 10^3/uL BMP 02/21/24 11:48 Sodium 138 Potassium 3.3 L Chloride 101 Carbon Dioxide 26.3 BUN 11.0 Creatinine 0.98 Glucose 154 H Calcium 8.8 Assessment and Plan Assessment and Plan (1) Cellulitis of left hip: Assessment and Plan: WBC's elevated, with signs of cellulitis on exam. elevated ESR, CRP; uric acid and lactate normal, CT of the left hip showed fluid collection consistent with hematoma vs abscess. Will consult ortho. Start Vancomycin and Zosyn, blood cultures and urine obtained. May need joint aspiration to direct antibiotic choice, empiric treatment until then, and hold aspirin. (2) Pain with hip hemiarthroplasty: Assessment and Plan: treat with tylenol, or oxycodone as needed. PT/OT evaluation Qualifiers: Encounter type: initial encounter Qualified Code(s): T84.84XA - Pain due to internal orthopedic prosthetic devices, implants and grafts, initial encounter; Z96.649 - Presence of unspecified artificial hip joint (3) Depression: Assessment and Plan: continue sertraline Qualifiers: Depression Type: unspecified Qualified Code(s): F32.A - Depression, unspecified (4) Hypothyroidism (acquired): Assessment and Plan: continue levothyroxine (5) Primary hypertension: Assessment and Plan: continue losartan Plan Patient is a full code Lovenox for dvt prophylaxis Patient is inpatient status and expected to cross 2 midnights for treatment of her cellulitis and possible abscess vs hematoma
[2024-02-21 13:57] LABS: Erythrocyte Sedimentation Rate 32 mm/hr (<=30)
[2024-02-21 14:06] VITALS: BP 112/58; PULSE 78; TEMP 37; O2SAT 94; BMI 27.2
[2024-02-21 14:16] LABS: Lactate/Lactic Acid 2.5 mmol/L (0.4-2.0)
--- NOTE | 2024-02-21 14:18 | CT_ITS ---
The [address] [address] Patient Name: ASHLYN CHIN MRN: [id number] date: 1945 Sex: F Assigned Patient Location: MS Current Patient Location: Accession/Order Number: [id number] Exam Date: 02/21/2024 16:35 Report Date: 02/21/2024 17:13 At the request of: ALLY CLEMENTS Procedure: CT hip LT wo con EXAM: CT hip LT wo con HISTORY: The patient is an 78-year-old female, s/p left hemiarthroplasty, now with cellulitis COMPARISON: Radiographs from earlier today. TECHNIQUE: CT images were obtained through the left hip only without intravenous contrast and reformatted in 2 dimensions. Dose reduction techniques were achieved by using automated exposure control and/or adjustment of mA and/or kV according to patient size and/or use of iterative reconstruction technique. FINDINGS: The accompanying radiographs demonstrate a left hip bipolar hemiprosthesis. The bone images demonstrate no evidence of abnormal lucency around the cemented femoral component to suggest hardware loosening or failure. No periprosthetic fractures are seen in the proximal left femur or acetabulum. The soft tissue images demonstrate an ovoid density within the subcutaneous tissues lateral to the left hip, extending superior to the superior extent of these images. This soft tissue density measures more than 5.4 cm in width on axial image 1 and more than 9.3 cm in length on coronal image 68. This has a density slightly higher than simple fluid. Without the use of intravenous contrast I cannot determine if this has central or peripheral vascularity. The differential diagnosis for this subcutaneous collection includes a complex fluid collection, abscess, or possibly a hematoma. This should be amenable to percutaneous aspiration for diagnostic purposes, perhaps with ultrasonic guidance. No other fluid collections or soft tissue densities are seen within the subcutaneous or deeper soft tissues around the left hip. CT/CT hip LT wo con IMPRESSION: Subcutaneous collection lateral to the left hip. Electronically authenticated by: SURJIT MAZARIEGOS Date: 02/21/2024 17:13
[2024-02-21 15:05] LABS: Lactate/Lactic Acid 0.7 mmol/L (0.4-2.0)
[2024-02-21] MEDS: PIPERACILLIN SODIUM/TAZOBACTAM 3.375 GM in 0.9 % SODIUM CHLORIDE 50 ML IV ×2 (15:13→23:10)
[2024-02-21] MEDS: VANCOMYCIN HCL 1,250 MG in 0.9 % SODIUM CHLORIDE 250 ML 166.667 MG IV (16:13)
--- NOTE | 2024-02-21 16:44 | P.ORCN_ITS ---
History of Present Illness HPI Consult date: 02/21/24 Requesting physician: Cathi Rios Chief complaint: INFECTION POST SURGERY HIP AREA, CELLULITIS Narrative: Patient is an 78-year-old female presented to the emergency department today with complaints of left hip pain and redness of the skin that started 4 days ago. She noticed she started having pain in the hip when she got out of the shower on Friday. She thinks the redness started at about the same time. She has been able to ambulate with a walker, which she was doing prior to this increased pain. Patient denies any fall or trauma. She did have a left hemiarthroplasty on 12/26/2023 after a fall and femur fracture. She did go to a SNF at discharge but has since been discharged to home and was doing well before this. She states that she did have a fever yesterday and the day before, 101 and 102 respectively. [facility] Medical History (Updated 02/21/24 @ 14:02 by Cathi Rios DO) Depression ?F32.A - Depression, unspecified (ICD-10) Hypothyroidism (acquired) ?E03.9 - Hypothyroidism, unspecified (ICD-10) Primary hypertension ?I10 - Essential (primary) hypertension (ICD-10) Surgical History History of left hip hemiarthroplasty ?Z96.642 - Presence of left artificial hip joint (ICD-10) History of total right knee replacement ?Z96.651 - Presence of right artificial knee joint (ICD-10) Family History (Updated 02/21/24 @ 14:58 by Lizeth Diaz) Sister Family history of cancer Social History (Updated 02/21/24 @ 15:00 by Lizeth Diaz) Within the past year, how often did you have a drink containing alcohol: monthly or less Within the past year, how many standard drinks containing alcohol did you have on a typical day: 1 or 2 Within the past year, how often did you have six or more drinks on one occasion: never Total score: 0 Score interpretation: A score less than 3 is consistent with normal alcohol consumption. Smoking status: Never smoker Second hand tobacco smoke exposure: No Non-prescribed substance use: denies use Previous occupational history: Retired from [email or web address] Known occupational exposures/hazards: No Highest level of school completed/degree received: high school graduate Do you want help with school or training: No Are you now , , , , never or living with a partner: In a typical week, how many times do you talk on the telephone with family, friends, or neighbors: 3 or more times per week How often do you get together with friends or relatives: 3 or more times per week How often do you attend christianity or methodist services: 4 or more times per year Do you belong to any clubs or organizations such as christianity groups unions, [employer] or athle[employer]PU groups, or school groups: no Total score: 3 Score interpretation: A score of greater than or equal to 2 indicates the lowest level of social isolation. Little interest or pleasure in doing things: not at all Feeling down, depressed, or hopeless: nearly every day Feel stressed/tense/nervous/anxious/difficulty sleeping: only a little Life stressors: other Life stressor details: left hip and right knee issues Due to disability, difficulty making decisions: No Do you think of yourself as: straight/heterosexual Gender Identity: female Meds Home Medications and Allergies Home Medications ?Medication ?Instructions ?Recorded ?Confirmed ?Type levothyroxine 125 mcg tablet 125 mcg PO .ACB 12/26/23 02/21/24 History losartan 25 mg tablet 25 mg PO QAM 12/26/23 02/21/24 History sertraline 100 mg tablet 50 mg PO .QD 12/26/23 02/21/24 History acetaminophen 500 mg tablet 1,000 mg (2 x 500 mg) PO Q6H PRN 12/29/23 Rx Pain Scale 4-6 3 days #12 tabs aspirin 81 mg capsule 81 mg PO DAILY #14 caps 12/29/23 02/21/24 Rx baclofen 10 mg tablet 10 mg PO BID PRN Spasms 2 days #4 12/29/23 02/21/24 Rx tabs carbamide peroxide 6.5 % ear drops 7 drp otic (ear) BID 7 days #1 mL 12/29/23 Rx (Ear Wax Removal Drops) hydrocodone 5 mg-acetaminophen 325 1 tab PO Q4H PRN Pain 2 days #12 12/29/23 02/21/24 Rx mg tablet tabs Allergies Allergy/AdvReac Type Severity Reaction Status Date / Time Sulfa (Sulfonamide Allergy Intermediate Hives Verified 12/25/23 15:41 Antibiotics) Exam Narrative Exam Narrative: On exam patient is in no distress sitting in the hospital bed, age-appropriate, alert and oriented x 3. On inspection of the lateral left hip, the surgical incision is well-healed. There is erythema surrounding the scar that is not indurated. There are no open wounds. Compartments of the left thigh are soft and compressible. There is some diffuse tenderness with palpation of the erythema and thigh below it. Negative logroll. Good ROM of the left hip, knee, and ankle. 5/5 strength distally with dorsi/plantarflexion. 2+ DP pulses palpated bilaterally. Sensation intact distally with light touch to bilateral lower extremities. Constitutional Vital Signs, click to edit/add: Last Vital Signs Temp 98.6 F 02/21/24 14:06 Pulse 78 02/21/24 14:06 Resp 16 02/21/24 14:06 BP 112/58 02/21/24 14:06 Pulse Ox 94 L 02/21/24 14:06 O2 Del Method Room Air 02/21/24 14:06 Results Labs Labs: Abnormal lab results 02/21/24 Range/Units 11:48 WBC 14.8 H (4.0-11.0) 10^3/uL RBC 4.09 L (4.20-5.40) 10^6/uL MPV 8.9 L (9.5-13.5) fL Neut % (Auto) 81.9 H (43.0-75.0) % Lymph % (Auto) 9.2 L (20.5-60.0) % Eos % (Auto) 0.5 L (0.9-7.0) % Neut # (Auto) 12.1 H (1.4-6.5) 10^3/uL [place] # (Auto) 0.9 H (0.3-0.8) 10^3/uL Abs Immat Gran (auto) 0.32 H (0.00-0.03) 10^3/uL Imm/Tot Granulo (auto) 2.2 H (0.0-0.5) % ESR 32 H (<=30) mm/hr Potassium 3.3 L (3.5-5.1) mmol/L Est GFR (Non-Af Amer) 55 L (>=60 mL/min/1.73m^2) Glucose 154 H (74-106) mg/dL Lactate 2.5 H* (0.4-2.0) mmol/L C-Reactive Protein 13.30 H (<=0.50) mg/dL H & H 02/21/24 Range/Units 11:48 Hgb 12.2 (12.0-16.0) g/dL Hct 36.1 (36.0-48.0) % All other labs normal. Assessment and Plan Assessment and Plan (1) Cellulitis of left hip: (2) Pain with hip hemiarthroplasty: Assessment and Plan: Left hip hemiarthroplasty on 12/26/2023 Overlying Cellulitis over surgical incision that is well healed -WBC 14.8, patient afebrile here, blood cultures taken in ED, vitals stable -Started on Vanc and Zosyn -XR and CT scan of the Left Hip reviewed, no loosening of the hardware noted on xray, CT scan reveals a complex fluid collection laterally, likely a post op hematoma that will take time to resolve -Pain control, WBAT -Agree with treatment for cellulitis, will follow Plan discussed and agreed upon by my Supervising Physician, Dr Shore. Qualifiers: Encounter type: initial encounter Qualified Code(s): T84.84XA - Pain due to internal orthopedic prosthetic devices, implants and grafts, initial encounter; Z96.649 - Presence of unspecified artificial hip joint (3) Depression: Qualifiers: Depression Type: unspecified Qualified Code(s): F32.A - Depression, unspecified (4) Hypothyroidism (acquired): (5) Primary hypertension:
[2024-02-21] MEDS: ONDANSETRON PF 4 MG/2 ML VIAL IV (20:00)
[2024-02-21] MEDS: ACETAMINOPHEN 500 MG TABLET 1000 MG PO (20:00)
[2024-02-21] MEDS: OXYCODONE HCL/ACETAMINOPHEN 5MG/325MG 1 TAB PO (20:00)
[2024-02-21 20:09] VITALS: PULSE 93
[2024-02-21 20:18] VITALS: BP 135/77; PULSE 91; TEMP 37.1; O2SAT 93
[2024-02-21 20:43] LABS: Glucometer 121 mg/dL (74-106)
[2024-02-21] MEDS: ENOXAPARIN SODIUM 40 MG/0.4 ML SYRINGE SUBQ (20:47)
[2024-02-21] MEDS: ALPRAZOLAM 0.25 MG TABLET PO (20:48)
[2024-02-22] VITALS (9 sets, daily range): BP systolic 91–113; BP diastolic 52–64; PULSE 60–88; TEMP 36.3–37.9; O2SAT 94–100
[2024-02-22] MEDS: ACETAMINOPHEN 500 MG TABLET 1000 MG PO (05:09)
[2024-02-22] MEDS: OXYCODONE HCL/ACETAMINOPHEN 5MG/325MG 1 TAB PO ×3 (05:09→18:32)
[2024-02-22] MEDS: LEVOTHYROXINE SODIUM 125 MCG TABLET PO (05:32)
[2024-02-22 06:17] LABS: Basophils Absolute Auto 0.1 10^3/uL (0.0-0.1); Basophils Percent Auto 0.6 % (0.2-2.0); Eosinophils Absolute Auto 0.2 10^3/uL (0.0-0.7); Eosinophils Percent Auto 1.4 % (0.9-7.0); Hematocrit 31.5 % (36.0-48.0); Hemoglobin 10.5 g/dL (12.0-16.0); Immature Granulocytes Abs Auto 0.05 10^3/uL (0.00-0.03); Immature Granulocytes Pct Auto 0.5 % (0.0-0.5); Lymphocytes Absolute Auto 1.2 10^3/uL (1.2-3.8); Lymphocytes Percent Auto 10.9 % (20.5-60.0); Mean Corpuscular HGB Conc 33.3 g/dL (29.9-35.2); Mean Corpuscular Hemoglobin 29.2 pg (26.7-34.0); Mean Corpuscular Volume 87.7 fL (81.0-99.0); Mean Platelet Volume 8.8 fL (9.5-13.5); Monocytes Absolute Auto 0.6 10^3/uL (0.3-0.8); Monocytes Percent Auto 5.8 % (1.7-12.0); Neutrophils Absolute Auto 8.6 10^3/uL (1.4-6.5); Neutrophils Percent Auto 80.8 % (43.0-75.0); Platelet Count 198 10^3/uL (150-450); Red Blood Count 3.59 10^6/uL (4.20-5.40); Red Cell Distribution Width 12.2 % (11.0-15.0); White Blood Count 10.6 10^3/uL (4.0-11.0)
[2024-02-22 06:33] LABS: Alanine Aminotransferase 12 U/L (14-59); Albumin Globulin Ratio 0.8; Albumin Level 2.6 g/dL (3.4-5.0); Alkaline Phosphatase 69 U/L (46-116); Anion Gap 10.4; Aspartate Amino Transferase 8 U/L (15-37); BUN Creatinine Ratio 13.3; Bilirubin Total 0.6 mg/dL (0.2-1.0); Calcium 8.7 mg/dL (8.5-10.1); Carbon Dioxide 27.2 mmol/L (21.0-32.0); Chloride 105 mmol/L (98-107); Estimated GFR (African America >60 (>=60 mL/min/1.73m^2); Estimated GFR (Non-African Ame 55 (>=60 mL/min/1.73m^2); Globulin 3.3 g/dL; Glucose 118 mg/dL (74-106); Potassium 3.6 mmol/L (3.5-5.1); Sodium 139 mmol/L (136-145); Total Protein 5.9 g/dL (6.4-8.2)
[2024-02-22] MEDS: DOCUSATE SODIUM 100 MG CAPSULE 200 MG PO (08:24)
[2024-02-22] MEDS: PIPERACILLIN SODIUM/TAZOBACTAM 3.375 GM in 0.9 % SODIUM CHLORIDE 50 ML IV ×2 (08:24→15:39)
[2024-02-22] MEDS: POLYETHYLENE GLYCOL 3350 17 GM POWDER PACKET PO (08:24)
[2024-02-22] MEDS: LOSARTAN POTASSIUM 25 MG TABLET PO (08:27)
[2024-02-22] MEDS: SERTRALINE HCL 50 MG TABLET PO (08:27)
--- NOTE | 2024-02-22 09:11 | PM.PN ---
Progress Note: Subjective Subjective Interval history: Patient still notes pain in the left hip. Making it difficult to get up on or lay in bed. She has been having to ask for her pain medication, given it's PRN, we discussed scheduling this today. I think this will help. Son present during exam this morning. All questions answered. Labs reviewed with patient. Exam Narrative Exam Narrative: General: Patient is alert, and oriented to person, place and time with normal affect, proper hygiene Skin: erythema around and extending down the length of the scar of the left hip Head: atraumatic, acephalic Eyes: PERRLA, no nystagmus present, conjunctiva clear, no scleral icterus Ears: normal gross auditory acuity Heart: Normal rate and rhythm, no murmurs/rubs/gallops Lungs: no audible wheezes, crackles and normal breath sounds all lung mendes Abdomen: Normal audible bowel sounds, no distension, No palpable masses, no organomegaly, no rebound/guarding/ or rigidity Musculoskeletal: no swelling bilateral lower extremities Neuro: CN II-X grossly intact Constitutional Vital Signs, click to edit/add: Last Vital Signs Temp 98.2 F 02/22/24 08:11 Pulse 60 02/22/24 08:11 Resp 16 02/22/24 08:11 BP 102/61 02/22/24 08:11 Pulse Ox 95 02/22/24 08:11 O2 Del Method Room Air 02/22/24 08:11 Progress Note: Objective Labs Labs: Short CBC 02/21/24 02/22/24 Range/Units 11:48 06:06 WBC 14.8 H 10.6 (4.0-11.0) 10^3/uL Hgb 12.2 10.5 L (12.0-16.0) g/dL Hct 36.1 31.5 L (36.0-48.0) % Plt Count 262 198 (150-450) 10^3/uL BMP 02/21/24 02/22/24 11:48 06:06 Sodium 138 139 Potassium 3.3 L 3.6 Chloride 101 105 Carbon Dioxide 26.3 27.2 BUN 11.0 13.0 Creatinine 0.98 0.98 Glucose 154 H 118 H Calcium 8.8 8.7 Liver Function 02/22/24 Range/Units 06:06 Total Bilirubin 0.6 (0.2-1.0) mg/dL AST 8 L (15-37) U/L ALT 12 L (14-59) U/L Alkaline Phosphatase 69 (46-116) U/L Albumin 2.6 L (3.4-5.0) g/dL Progress Note: A&P Assessment and Plan (1) Cellulitis of left hip: Assessment and Plan: WBC's elevated initially but normal today 10.6, with signs of cellulitis on exam. elevated ESR, CRP; uric acid and lactate normal, CT of the left hip showed fluid collection consistent with hematoma vs abscess. ortho on board and agree with plan, continue Vancomycin and Zosyn, blood cultures and urine obtained. May need joint aspiration to direct antibiotic choice, empiric treatment until then, and hold aspirin. (2) Pain with hip hemiarthroplasty: Assessment and Plan: treat with tylenol, or oxycodone as needed. PT/OT evaluation Qualifiers: Encounter type: initial encounter Qualified Code(s): T84.84XA - Pain due to internal orthopedic prosthetic devices, implants and grafts, initial encounter; Z96.649 - Presence of unspecified artificial hip joint (3) Depression: Assessment and Plan: continue sertraline Qualifiers: Depression Type: unspecified Qualified Code(s): F32.A - Depression, unspecified (4) Hypothyroidism (acquired): Assessment and Plan: continue levothyroxine (5) Primary hypertension: Assessment and Plan: continue losartan Plan Patient is a full code Lovenox for dvt prophylaxis Patient will need 2-3 more days for IV antibiotics for her left hip cellulitis
[2024-02-22] MEDS: VANCOMYCIN HCL 1,250 MG in 0.9 % SODIUM CHLORIDE 250 ML 166.667 MG IV (16:48)
[2024-02-22] MEDS: ONDANSETRON PF 4 MG/2 ML VIAL IV (20:05)
[2024-02-22] MEDS: ENOXAPARIN SODIUM 40 MG/0.4 ML SYRINGE SUBQ (20:05)
[2024-02-22] MEDS: ACETAMINOPHEN 500 MG TABLET PO (20:05)
[2024-02-23] VITALS (7 sets, daily range): BP systolic 95–127; BP diastolic 52–70; PULSE 69–86; TEMP 36.6–37.4; O2SAT 91–94
[2024-02-23] MEDS: OXYCODONE HCL/ACETAMINOPHEN 5MG/325MG 1 TAB PO ×5 (00:19→23:53)
[2024-02-23] MEDS: PIPERACILLIN SODIUM/TAZOBACTAM 3.375 GM in 0.9 % SODIUM CHLORIDE 50 ML IV ×4 (00:19→23:54)
[2024-02-23] MEDS: LEVOTHYROXINE SODIUM 125 MCG TABLET PO (05:21)
[2024-02-23 06:46] LABS: Basophils Absolute Auto 0.1 10^3/uL (0.0-0.1); Basophils Percent Auto 0.5 % (0.2-2.0); Eosinophils Absolute Auto 0.2 10^3/uL (0.0-0.7); Hematocrit 31.2 % (36.0-48.0); Hemoglobin 10.8 g/dL (12.0-16.0); Immature Granulocytes Pct Auto 0.9 % (0.0-0.5); Lymphocytes Absolute Auto 1.4 10^3/uL (1.2-3.8); Lymphocytes Percent Auto 12.7 % (20.5-60.0); Mean Corpuscular HGB Conc 34.6 g/dL (29.9-35.2); Mean Corpuscular Hemoglobin 30.3 pg (26.7-34.0); Mean Corpuscular Volume 87.6 fL (81.0-99.0); Mean Platelet Volume 8.8 fL (9.5-13.5); Monocytes Absolute Auto 0.6 10^3/uL (0.3-0.8); Monocytes Percent Auto 5.7 % (1.7-12.0); Neutrophils Absolute Auto 8.4 10^3/uL (1.4-6.5); Neutrophils Percent Auto 78.2 % (43.0-75.0); Platelet Count 229 10^3/uL (150-450); Red Blood Count 3.56 10^6/uL (4.20-5.40); Red Cell Distribution Width 12.3 % (11.0-15.0); White Blood Count 10.8 10^3/uL (4.0-11.0)
[2024-02-23 07:05] LABS: Alanine Aminotransferase 9 U/L (14-59); Albumin Globulin Ratio 0.7; Albumin Level 2.3 g/dL (3.4-5.0); Alkaline Phosphatase 71 U/L (46-116); Anion Gap 13.3; Aspartate Amino Transferase 12 U/L (15-37); BUN Creatinine Ratio 14.3; Bilirubin Total 0.5 mg/dL (0.2-1.0); Calcium 8.3 mg/dL (8.5-10.1); Carbon Dioxide 26.2 mmol/L (21.0-32.0); Chloride 103 mmol/L (98-107); Estimated GFR (African America >60 (>=60 mL/min/1.73m^2); Estimated GFR (Non-African Ame 59 (>=60 mL/min/1.73m^2); Globulin 3.5 g/dL; Glucose 111 mg/dL (74-106); Potassium 3.5 mmol/L (3.5-5.1); Sodium 139 mmol/L (136-145); Total Protein 5.8 g/dL (6.4-8.2)
[2024-02-23] MEDS: LOSARTAN POTASSIUM 25 MG TABLET PO (08:53)
[2024-02-23] MEDS: SERTRALINE HCL 50 MG TABLET PO (08:53)
--- NOTE | 2024-02-23 09:04 | PM.PN ---
Progress Note: Subjective Subjective Interval history: Patient still notes pain in the left hip. Despite scheduling her Percocet yesterday. She denies fevers or chills but says she feels nauseated. She has been ambulating but just cannot get comfortable. Son Paddy, present during exam this morning. All questions answered. Labs reviewed with patient. I have discussed case with PA for Dr. Mone Montelongo to see her today. Exam Narrative Exam Narrative: General: Patient is alert, and oriented to person, place and time with normal affect, proper hygiene Skin: erythema around and extending down the length of the scar of the left hip is looks less extensive but feels more indurated Head: atraumatic, acephalic Eyes: PERRLA, no nystagmus present, conjunctiva clear, no scleral icterus Ears: normal gross auditory acuity Heart: Normal rate and rhythm, no murmurs/rubs/gallops Lungs: no audible wheezes, crackles and normal breath sounds all lung mendes Abdomen: Normal audible bowel sounds, no distension, No palpable masses, no organomegaly, no rebound/guarding/ or rigidity Musculoskeletal: no swelling bilateral lower extremities Neuro: CN II-X grossly intact Constitutional Vital Signs, click to edit/add: Last Vital Signs Temp 98.2 F 02/23/24 06:55 Pulse 69 02/23/24 06:55 Resp 18 02/23/24 06:55 BP 108/52 02/23/24 06:55 Pulse Ox 93 L 02/23/24 06:55 O2 Del Method Room Air 02/23/24 06:55 Progress Note: Objective Labs Labs: Short CBC 02/23/24 Range/Units 06:38 WBC 10.8 (4.0-11.0) 10^3/uL Hgb 10.8 L (12.0-16.0) g/dL Hct 31.2 L (36.0-48.0) % Plt Count 229 (150-450) 10^3/uL BMP 02/23/24 06:38 Sodium 139 Potassium 3.5 Chloride 103 Carbon Dioxide 26.2 BUN 13.0 Creatinine 0.91 Glucose 111 H Calcium 8.3 L Liver Function 02/23/24 Range/Units 06:38 Total Bilirubin 0.5 (0.2-1.0) mg/dL AST 12 L (15-37) U/L ALT 9 L (14-59) U/L Alkaline Phosphatase 71 (46-116) U/L Albumin 2.3 L (3.4-5.0) g/dL Progress Note: A&P Assessment and Plan (1) Cellulitis of left hip: Assessment and Plan: Still with signs of cellulitis on exam. elevated ESR, CRP; uric acid and lactate normal, CT of the left hip showed fluid collection consistent with hematoma vs abscess. ortho on board and agree with plan, continue Vancomycin and Zosyn, blood cultures and urine obtained. May need fluid aspiration to direct antibiotic choice and aid in pain control, empiric treatment until then, and hold aspirin. (2) Pain with hip hemiarthroplasty: Assessment and Plan: treat with tylenol, and scheduled oxycodone, plan to add some baclofen. PT/OT Qualifiers: Encounter type: initial encounter Qualified Code(s): T84.84XA - Pain due to internal orthopedic prosthetic devices, implants and grafts, initial encounter; Z96.649 - Presence of unspecified artificial hip joint (3) Depression: Assessment and Plan: continue sertraline Qualifiers: Depression Type: unspecified Qualified Code(s): F32.A - Depression, unspecified (4) Hypothyroidism (acquired): Assessment and Plan: continue levothyroxine (5) Primary hypertension: Assessment and Plan: continue losartan Plan Patient is a full code Lovenox for dvt prophylaxis appreciate Dr. Shore's recommendations today
--- NOTE | 2024-02-23 10:51 | SWNOTE1 ---
SW received a message from Case management and pt left the [facility] and she was set up with , she was unsure of agency. MYLES called [facility] and she is current with them. SW to send updates.
--- NOTE | 2024-02-23 11:24 | CM.NOTE ---
Rounds made with Dr. Rios, pt continues with pain to L hip. Dr. Rios will reach out to ortho for further recommendations. Dr. Shore will see pt today and then contact Dr. Rios regarding plan of care. Son at bedside with update. No discharge today.
--- NOTE | 2024-02-23 11:37 | SWNOTE1 ---
SW was consulted for SNF for patient. Pt's goal is to return home with [facility]. SW to review therapy notes.
--- NOTE | 2024-02-23 11:37 | SWNOTE1 ---
Important Message from Medicare reviewed and discussed with patient. Pt. verbalized understanding and signed the form. Original given to patient and copy placed in patient?s chart. Pt lives at home with and voiced she alway uses a walker at home and her goal is to return home. Ortho is consulted. SW to follow as needed.
--- NOTE | 2024-02-23 11:43 | SWNOTE1 ---
MYLES faxed ED note, H&P, all physician notes, and OT note to [facility].
[2024-02-23] MEDS: ACETAMINOPHEN 500 MG TABLET PO (11:47)
[2024-02-23] MEDS: 0.9 % SODIUM CHLORIDE 250 ML 10 ML IV (15:50)
[2024-02-23] MEDS: VANCOMYCIN HCL 1,250 MG in 0.9 % SODIUM CHLORIDE 250 ML 125 MG IV (17:02)
--- NOTE | 2024-02-23 18:05 | PM.ORPN ---
Progress Note: A&P Assessment and Plan (1) Cellulitis of left hip: (2) Pain with hip hemiarthroplasty: Assessment and Plan: Patient has cellulitis but her clinical exam was concerning for an abscess. Given her clinical exam with her skin getting very thinned distally with an area of fluctuance along with a CT concern is for an abscess. I recommended an irrigation and debridement tomorrow. I have discussed the plan with the patient and her sons who understand and agree with treatment plan. N.p.o. after midnight. Qualifiers: Encounter type: initial encounter Qualified Code(s): T84.84XA - Pain due to internal orthopedic prosthetic devices, implants and grafts, initial encounter; Z96.649 - Presence of unspecified artificial hip joint (3) Depression: Qualifiers: Depression Type: unspecified Qualified Code(s): F32.A - Depression, unspecified (4) Hypothyroidism (acquired): (5) Primary hypertension: Subjective Subjective Interval history: Continues to get worse on left hip Exam Narrative Exam Narrative: Left hip erythema and warmth have increased today. Distal incision skin is getting very thin with an area of fluctuance. No drainage. Distal neurovascularly intact Constitutional Vital Signs, click to edit/add: Last Vital Signs Temp 98.9 F 02/23/24 15:28 Pulse 79 02/23/24 15:28 Resp 20 02/23/24 15:28 BP 122/70 02/23/24 15:28 Pulse Ox 93 L 02/23/24 15:28 O2 Del Method Room Air 02/23/24 15:28
--- NOTE | 2024-02-23 18:48 | PC.NURSE ---
This RN called to patients room by patient's son. Son stated her hip incision blew open. Patient laying in bed and copious amounts of dillon to werner colored drainage with pink tinged drainage incorporated in the fluid. Patients pad beneath her, side of disposable brief is saturated with drainage. Old incision line noted on skin with pin size opening noted on lower 2/3 of incision line. Patient assisted to bathroom and care provided. Hip area continues to drain fluid intermittently and folded ABD dressing applied with open ABD dressing applied over the top and secured with paper tape. Primary RN in room to assess and medicate patient.
[2024-02-24] VITALS (14 sets, daily range): BP systolic 103–156; BP diastolic 47–75; PULSE 56–76; TEMP 36.6–37.2; O2SAT 91–100
[2024-02-24] MEDS: ACETAMINOPHEN 500 MG TABLET PO ×2 (03:10→21:14)
[2024-02-24] MEDS: OXYCODONE HCL/ACETAMINOPHEN 5MG/325MG 1 TAB PO ×4 (05:47→23:40)
[2024-02-24] MEDS: LEVOTHYROXINE SODIUM 125 MCG TABLET PO (05:47)
[2024-02-24 06:19] LABS: Basophils Absolute Auto 0.1 10^3/uL (0.0-0.1); Basophils Percent Auto 0.8 % (0.2-2.0); Eosinophils Absolute Auto 0.3 10^3/uL (0.0-0.7); Eosinophils Percent Auto 3.9 % (0.9-7.0); Hemoglobin 10.2 g/dL (12.0-16.0); Immature Granulocytes Abs Auto 0.07 10^3/uL (0.00-0.03); Immature Granulocytes Pct Auto 0.8 % (0.0-0.5); Lymphocytes Absolute Auto 1.8 10^3/uL (1.2-3.8); Lymphocytes Percent Auto 21.5 % (20.5-60.0); Mean Corpuscular Hemoglobin 29.7 pg (26.7-34.0); Mean Corpuscular Volume 87.5 fL (81.0-99.0); Mean Platelet Volume 8.4 fL (9.5-13.5); Monocytes Absolute Auto 0.5 10^3/uL (0.3-0.8); Monocytes Percent Auto 5.7 % (1.7-12.0); Neutrophils Absolute Auto 5.6 10^3/uL (1.4-6.5); Neutrophils Percent Auto 67.3 % (43.0-75.0); Platelet Count 240 10^3/uL (150-450); Red Blood Count 3.43 10^6/uL (4.20-5.40); Red Cell Distribution Width 12.4 % (11.0-15.0); White Blood Count 8.4 10^3/uL (4.0-11.0)
[2024-02-24 06:34] LABS: Alanine Aminotransferase <6 U/L (14-59); Albumin Globulin Ratio 0.7; Albumin Level 2.2 g/dL (3.4-5.0); Alkaline Phosphatase 67 U/L (46-116); Anion Gap 11.7; Aspartate Amino Transferase 9 U/L (15-37); BUN Creatinine Ratio 12.3; Bilirubin Total 0.3 mg/dL (0.2-1.0); Calcium 8.3 mg/dL (8.5-10.1); Carbon Dioxide 27.9 mmol/L (21.0-32.0); Chloride 107 mmol/L (98-107); Estimated GFR (African America >60 (>=60 mL/min/1.73m^2); Estimated GFR (Non-African Ame >60 (>=60 mL/min/1.73m^2); Globulin 3.3 g/dL; Glucose 95 mg/dL (74-106); Potassium 3.6 mmol/L (3.5-5.1); Sodium 143 mmol/L (136-145); Total Protein 5.5 g/dL (6.4-8.2)
[2024-02-24] MEDS: LOSARTAN POTASSIUM 25 MG TABLET PO (08:03)
[2024-02-24] MEDS: SERTRALINE HCL 50 MG TABLET PO (08:03)
[2024-02-24] MEDS: PIPERACILLIN SODIUM/TAZOBACTAM 3.375 GM in 0.9 % SODIUM CHLORIDE 50 ML IV ×3 (08:03→23:39)
--- NOTE | 2024-02-24 09:19 | PM.PN ---
Progress Note: Subjective Subjective Interval history: Patient is scheduled for I&D today in the OR at 1630. She notes that the left hip has had some drainage out last night, about 10cc came out and pain immediately improved but still present. She has been afebrile. Pain is slightly better today. She is currrently NPO. Exam Narrative Exam Narrative: General: Patient is alert, and oriented to person, place and time with normal affect, proper hygiene Skin: erythema around and extending down the length of the scar of the left hip area of induration has improved, pain with palpation and small open area in the scar, i could not express any discharge Head: atraumatic, acephalic Eyes: PERRLA, no nystagmus present, conjunctiva clear, no scleral icterus Ears: normal gross auditory acuity Heart: Normal rate and rhythm, no murmurs/rubs/gallops Lungs: no audible wheezes, crackles and normal breath sounds all lung mendes Abdomen: Normal audible bowel sounds, no distension, No palpable masses, no organomegaly, no rebound/guarding/ or rigidity Musculoskeletal: no swelling bilateral lower extremities Neuro: CN II-X grossly intact Constitutional Vital Signs, click to edit/add: Last Vital Signs Temp 98.8 F 02/24/24 07:43 Pulse 76 02/24/24 07:43 Resp 18 02/24/24 07:43 BP 104/51 02/24/24 07:43 Pulse Ox 93 L 02/24/24 07:43 O2 Del Method Room Air 02/24/24 07:43 Progress Note: Objective Labs Labs: Short CBC 02/24/24 Range/Units 06:07 WBC 8.4 (4.0-11.0) 10^3/uL Hgb 10.2 L (12.0-16.0) g/dL Hct 30.0 L (36.0-48.0) % Plt Count 240 (150-450) 10^3/uL BMP 02/24/24 06:07 Sodium 143 Potassium 3.6 Chloride 107 Carbon Dioxide 27.9 BUN 10.0 Creatinine 0.81 Glucose 95 Calcium 8.3 L Liver Function 02/24/24 Range/Units 06:07 Total Bilirubin 0.3 (0.2-1.0) mg/dL AST 9 L (15-37) U/L ALT <6 L (14-59) U/L Alkaline Phosphatase 67 (46-116) U/L Albumin 2.2 L (3.4-5.0) g/dL Progress Note: A&P Assessment and Plan (1) Cellulitis of left hip: Assessment and Plan: continue Vancomycin and Zosyn. going to OR today for I&D. currently NPO, will follow along wound cultures (2) Abscess of left hip: Assessment and Plan: see #1 (3) Pain with hip hemiarthroplasty: Assessment and Plan: treat with tylenol, and scheduled oxycodone, plan to add some baclofen. PT/OT Qualifiers: Encounter type: initial encounter Qualified Code(s): T84.84XA - Pain due to internal orthopedic prosthetic devices, implants and grafts, initial encounter; Z96.649 - Presence of unspecified artificial hip joint (4) Depression: Assessment and Plan: continue sertraline Qualifiers: Depression Type: unspecified Qualified Code(s): F32.A - Depression, unspecified (5) Hypothyroidism (acquired): Assessment and Plan: continue levothyroxine (6) Primary hypertension: Assessment and Plan: continue losartan Plan Patient is a full code Lovenox for dvt prophylaxis to the OR today
--- NOTE | 2024-02-24 11:26 | REH.PTDLY ---
Physical Therapy Daily Note PT Daily Note/Assess Start: 02/24/24 11:18 Freq: Status: Active Protocol: Document 02/24/24 11:18 TARIK (Rec: 02/24/24 11:25 [id number] Physical Therapy Daily Note/Assessment Time In 10:10 Time Out 10:30 Subjective Pt in bed upon arrival, agreeable to therapy. Therapeutic Exercise 4 Minutes (minutes) Therapeutic Exercise 0 Units Therapeutic Exercise Seated B LE marching and LAQ 10x ea with intermittent Treatment discomfort being noted at L hip. Therapeutic Activity 13 Minutes (minutes) Therapeutic Activity 1 Units Therapeutic Activity Supine to sit transfers SBA. Pt stands up and begins to Comments urinate. Sits back down to get cleaned up. Gait training with RW CGA to restroom 20 feet. CGA with toilet transfers. Pt ambulates another 140 feet CGA in hallway with RW with no LOB noted. Pt stops and converses for 2 mins with good standing balance with UEs on RW. Pt sits up in chair post ambulation with son in room and call light at hand. Total Therapy 17 Minutes Total Physical 1 Therapy Units Daily Note Summary Pt has discomfort in L hip intermittently at times throughout rx, pt having it drained later today but procedure is not until 4:30 pm. Pt steady on her feet with transfers and ambulation. Still recommend HH at [place] .
--- NOTE | 2024-02-24 12:16 | CM.NOTE ---
Rounds made with Dr. Rios, pt will go to OR today around 4:[address] Shore for I&D. Pt up in room with walker. Plan at this time is to return home with [facility].
[2024-02-24] MEDS: 0.9 % SODIUM CHLORIDE 250 ML 10 ML IV ×2 (15:03→21:14)
[2024-02-24 15:30] LABS: Vancomycin Trough 8.3 ug/mL (5.0-20.0)
[2024-02-24] MEDS: METOCLOPRAMIDE HCL 10 MG/2 ML VIAL IVP (16:28)
[2024-02-24] MEDS: FAMOTIDINE/PF 20 MG/2 ML VIAL IV (16:28)
--- NOTE | 2024-02-24 18:57 | P.ORPRC_ITS ---
Procedure Note Date of procedure: 02/24/24 Pre-op diagnosis: 1. Left hip postoperative surgical site infection Post-op diagnosis: same as pre-op Procedure: Procedure: Irrigation and debridement subcutaneous tissue left hip wound, wound VAC placement Detailed description of procedure: After informed consent was obtained the patient was brought to the operating room where general anesthetic was administered. Patient was placed in lateral decubitus position. Left leg was prepped and draped in the usual sterile fashion. Previous skin incision was utilized. The distal portion of the incision had opened overnight. A 10 blade was used to make the incision and with this copious amount of purulent fluid was drained. Culture swabs were taken as well as tissue specimen for aerobic, anaerobic, fungal and mycobacterial cultures. Mechanical debridement was performed with a Larsen elevator. Subcutaneous tissue was visualized. No muscle was visualized and fascia and previous suture and fascial repair were not visualized. Infected/liquefied fat was removed. Pulse lavage was used to irrigate with 6 L of fluid and then Aricept was utilized. A wound VAC was placed in standard fashion. Patient was awakened and brought to the recovery room in stable condi tion. There were no intraoperative or immediate postoperative complications. Anesthesia: General-LMA Surgeon: Antony Shore Estimated blood loss (mL): 25 Pathology: other (Tissue was sent for culture) Condition: stable Disposition: PACU
[2024-02-24] MEDS: VANCOMYCIN HCL 1,250 MG in 0.9 % SODIUM CHLORIDE 250 ML 166.67 MG IV (21:13)
[2024-02-24] MEDS: ONDANSETRON PF 4 MG/2 ML VIAL IV (21:14)
[2024-02-25 04:00] VITALS: BP 101/63; PULSE 54; TEMP 36.6; O2SAT 96
[2024-02-25] MEDS: LEVOTHYROXINE SODIUM 125 MCG TABLET PO (05:29)
[2024-02-25] MEDS: OXYCODONE HCL/ACETAMINOPHEN 5MG/325MG 1 TAB PO ×3 (05:29→18:04)
[2024-02-25 05:47] LABS: Basophils Percent Auto 0.5 % (0.2-2.0); Eosinophils Percent Auto 0.3 % (0.9-7.0); Hematocrit 30.6 % (36.0-48.0); Hemoglobin 10.1 g/dL (12.0-16.0); Immature Granulocytes Abs Auto 0.08 10^3/uL (0.00-0.03); Immature Granulocytes Pct Auto 1.1 % (0.0-0.5); Lymphocytes Absolute Auto 0.9 10^3/uL (1.2-3.8); Lymphocytes Percent Auto 11.4 % (20.5-60.0); Mean Corpuscular Hemoglobin 29.1 pg (26.7-34.0); Mean Corpuscular Volume 88.2 fL (81.0-99.0); Mean Platelet Volume 8.7 fL (9.5-13.5); Monocytes Absolute Auto 0.3 10^3/uL (0.3-0.8); Monocytes Percent Auto 4.4 % (1.7-12.0); Neutrophils Absolute Auto 6.1 10^3/uL (1.4-6.5); Neutrophils Percent Auto 82.3 % (43.0-75.0); Platelet Count 307 10^3/uL (150-450); Red Blood Count 3.47 10^6/uL (4.20-5.40); Red Cell Distribution Width 12.2 % (11.0-15.0); White Blood Count 7.4 10^3/uL (4.0-11.0)
[2024-02-25 06:09] LABS: Alanine Aminotransferase 11 U/L (14-59); Albumin Globulin Ratio 0.6; Albumin Level 2.1 g/dL (3.4-5.0); Alkaline Phosphatase 69 U/L (46-116); Anion Gap 10.1; Aspartate Amino Transferase 10 U/L (15-37); BUN Creatinine Ratio 14.6; Bilirubin Total 0.2 mg/dL (0.2-1.0); Calcium 8.4 mg/dL (8.5-10.1); Carbon Dioxide 28.1 mmol/L (21.0-32.0); Chloride 109 mmol/L (98-107); Estimated GFR (African America >60 (>=60 mL/min/1.73m^2); Estimated GFR (Non-African Ame >60 (>=60 mL/min/1.73m^2); Globulin 3.4 g/dL; Glucose 135 mg/dL (74-106); Potassium 4.2 mmol/L (3.5-5.1); Sodium 143 mmol/L (136-145); Total Protein 5.5 g/dL (6.4-8.2)
--- NOTE | 2024-02-25 06:11 | PM.ORPN ---
Progress Note: A&P Assessment and Plan (1) Cellulitis of left hip: (2) Abscess of left hip: Assessment and Plan: Left hip hemiarthroplasty on 12/26/2023 POD #1 s/p I&D left hip subcutaneous tissue over previous surgical incision -Pt afebrile overnight, blood cultures taken in ED negative for growth, vitals stable overnight -On Vanc and Zosyn, PICC line ordered, fluid cultures taken in OR, pending -Wound vac in place -Pain control, WBAT - Will follow (3) Pain with hip hemiarthroplasty: Qualifiers: Encounter type: initial encounter Qualified Code(s): T84.84XA - Pain due to internal orthopedic prosthetic devices, implants and grafts, initial encounter; Z96.649 - Presence of unspecified artificial hip joint Subjective Subjective Interval history: Patient is postoperative day 1 status post I&D of the left hip subcutaneous tissue surgical wound. Patient is doing well and pain is controlled. Patient reports that her incision started draining the night before surgery and that helped release a lot of pressure and helped relieve some pain. Exam Narrative Exam Narrative: On exam patient is laying in the bed sleeping, awakens easily to voice, in no distress. On Inspection there is a wound VAC in place over the previous surgical incision, erythema surrounding incision and tender with palpation. Thigh compartments are soft and compressible. 5/5 dorsiflexion/plantarflexion. 2+ DP pulses palpated bilaterally. Sensation intact distally with light touch. Constitutional Vital Signs, click to edit/add: Last Vital Signs Temp 98.0 F 02/24/24 23:24 Pulse 66 02/24/24 23:24 Resp 18 02/24/24 23:24 BP 104/61 02/24/24 23:24 Pulse Ox 95 02/24/24 23:24 O2 Del Method Room Air 02/24/24 23:24 Urinary Catheter Management Urinary Catheter Management Pure Wick: Cath placed during this visit: no
[2024-02-25] MEDS: PIPERACILLIN SODIUM/TAZOBACTAM 3.375 GM in 0.9 % SODIUM CHLORIDE 50 ML IV ×2 (07:32→16:08)
[2024-02-25 07:53] VITALS: BP 112/63; PULSE 68; TEMP 36.7; O2SAT 96
[2024-02-25] MEDS: LOSARTAN POTASSIUM 25 MG TABLET PO (08:59)
[2024-02-25] MEDS: SERTRALINE HCL 50 MG TABLET PO (08:59)
--- NOTE | 2024-02-25 09:17 | P.PN_ITS ---
Progress Note: Subjective Subjective Interval history: Patient is POD #1 from intraop I&D, wash out and wound vac placement. She has been afebrile. Pain is slightly better today. She is concerned about when she can go home. Paddy, her son is at bedside. Discussed waiting on culture results and plan for outpatient antibiotic regimen before discharge along with vermin exterminator plan with wound vac. Also awaiting ortho recommendations for this. Exam Narrative Exam Narrative: General: Patient is alert, and oriented to person, place and time with normal affect, proper hygiene Skin: left hip has wound vac in place, draining and working appropriately Head: atraumatic, acephalic Eyes: PERRLA, no nystagmus present, conjunctiva clear, no scleral icterus Ears: normal gross auditory acuity Heart: Normal rate and rhythm, no murmurs/rubs/gallops Lungs: no audible wheezes, crackles and normal breath sounds all lung mendes Abdomen: Normal audible bowel sounds, no distension, No palpable masses, no organomegaly, no rebound/guarding/ or rigidity Musculoskeletal: no swelling bilateral lower extremities Neuro: CN II-X grossly intact Constitutional Vital Signs, click to edit/add: Last Vital Signs Temp 98.1 F 02/25/24 07:53 Pulse 68 02/25/24 07:53 Resp 20 02/25/24 07:53 BP 112/63 02/25/24 07:53 Pulse Ox 96 02/25/24 07:53 O2 Del Method Room Air 02/25/24 07:53 Progress Note: Objective Labs Labs: Short CBC 02/25/24 Range/Units 05:37 WBC 7.4 (4.0-11.0) 10^3/uL Hgb 10.1 L (12.0-16.0) g/dL Hct 30.6 L (36.0-48.0) % Plt Count 307 (150-450) 10^3/uL BMP 02/25/24 05:37 Sodium 143 Potassium 4.2 Chloride 109 H Carbon Dioxide 28.1 BUN 13.0 Creatinine 0.89 Glucose 135 H Calcium 8.4 L Liver Function 02/25/24 Range/Units 05:37 Total Bilirubin 0.2 (0.2-1.0) mg/dL AST 10 L (15-37) U/L ALT 11 L (14-59) U/L Alkaline Phosphatase 69 (46-116) U/L Albumin 2.1 L (3.4-5.0) g/dL Progress Note: A&P Assessment and Plan (1) Abscess of left hip: Assessment and Plan: POD #1, pain is conrolled, H&H stable, wound vac working well. Continue Vanc and Zosyn until cultures from abscess result to guide discharge antibiotic regimen (2) Cellulitis of left hip: Assessment and Plan: see #1 (3) Pain with hip hemiarthroplasty: Assessment and Plan: treat with tylenol, and scheduled oxycodone, baclofen. PT/OT Qualifiers: Encounter type: initial encounter Qualified Code(s): T84.84XA - Pain due to internal orthopedic prosthetic devices, implants and grafts, initial encounter; Z96.649 - Presence of unspecified artificial hip joint (4) Depression: Assessment and Plan: continue sertraline Qualifiers: Depression Type: unspecified Qualified Code(s): F32.A - Depression, unspecified (5) Hypothyroidism (acquired): Assessment and Plan: continue levothyroxine (6) Primary hypertension: Assessment and Plan: continue losartan Plan Patient is a full code Lovenox for dvt prophylaxis Urinary Catheter Management Urinary Catheter Management Pure Wick: Cath placed during this visit: no
--- NOTE | 2024-02-25 11:00 | PT.DAILY ---
Physical Therapy Daily Note PT Daily Note/Assess Start: 02/24/24 11:18 Freq: Status: Active Protocol: Document 02/25/24 10:53 AMAYA (Rec: 02/25/24 11:00 AMAYA [id number]) Physical Therapy Daily Note/Assessment Time In/Time Out Time In 09:02 Time Out 09:35 Pain In Pain N/A Pain Out Pain N/A Subjective Subjective Pt supine upon arrival. Agreeable to PT. Pt did have L hip debrided/drained and has wound vac on now. Rates pain 5/10 currently at rest. Has been medicated prior to session. Therapeutic Exercise Time Therapeutic Exercise 5 Minutes (minutes) Therapeutic Exercise 0 Units Therapeutic Exercise Treatment Therapeutic Exercise Pt completes seated bilat LE strengthening ex while Treatment sitting in BS chair. Therapeutic Activity Time Therapeutic Activity 20 Minutes (minutes) Therapeutic Activity 2 Units Therapeutic Activity Treatment Bed Mobility Ability Minimum Assist Chair Transfer Contact Guard Assist,Minimum Assist Ability Therapeutic Activity Pts purewick is removed and she performs supine>sit Comments with Lorie to advance upper body and to manage wound vac lines along with IV lines. Pt sits EOB 5 min to while chair is moved and set up for transfer. Pt attempts sit >stand and has incontinent episode. Pt is asked to sit back down while floor is cleaned. Pt sit>stand again and brief is donned this time. Pt stand pivots to BS chair with CGA and assist for lines. Pt remains in BS chair while bed is changed and floor is cleaned up. Pt completes seated ther ex while sitting in BS chair. Pt c/o increased hip pain while sitting in chair and wishes to return to bed. Pt sit>stand Lorie this attempted due to posterior LOB. Sits again to get bearings. Another sit>stand attempt with CGA and stand pivot back to bed. Pt requires Lorie to advance LEs to bed. Pillows under bilat LEs. Ice pack to L hip. Remains supine with family present. Nursing notified of transfer/bed changed. Total Physical Therapy Time Total Therapy 25 Minutes Total Physical 2 Therapy Units Summary Daily Note Summary Decline in transfer/gait ability due to increased pain and wound vac placement. Would recommend SNF vs HH at this point due to decline.
[2024-02-25 11:22] VITALS: BP 108/66; PULSE 63; TEMP 36.6; O2SAT 94
--- NOTE | 2024-02-25 12:23 | CM.NOTE ---
Rounds made with Dr. Rios, pt now with wound vac to surgical wound. Dr. Rios or Case Management will speak with Dr. Shore's office regarding discharge planning.
--- NOTE | 2024-02-25 13:02 | SWNOTE1 ---
Pt may need wound vac for at home and IV antibiotics for at home. SW to call Dr. Shore's office to see what is being recommended for at discharge.
--- NOTE | 2024-02-25 13:38 | SWNOTE1 ---
SW and case management spoke to Dr. Shore via telephone in regards to discharge plans. Pt will need wound vac for several weeks. Pt will also need IV antibiotics for several weeks at home as well. Dr. Shore provided the measurements and information in regards to wound vac and we will send for him to sign. He has voiced he is unsure of antibiotic and waiting for cultures. SW to let pt know. SW to talk with pt in regards to wound vac and IV's.
--- NOTE | 2024-02-25 14:05 | CM.NOTE ---
Completed wound vac order and faxed to Dr. Shore to sign to get wound vac order completed.
--- NOTE | 2024-02-25 14:32 | CM.NOTE ---
Dr. Rios called and was able to do P-P and get pt approved for inpatient stay. Updated Dr. Rios on discharge plan per Dr. Shore, pt will go home on wound vac and senior care IV antibiotics.
--- NOTE | 2024-02-25 15:04 | SWNOTE1 ---
SW stopped in and spoke with pt about discharge plans. SW reviewed with pt that she will be going home with a wound vac and IV antibiotics. SW explained to pt that the nurse would be coming in at least 3x a week to change wound vac dressing. SW let her know in regards to IV antibiotics that a nurse would teach someone in the home (such as her son or retired nurse friend) how to administer and the HH nurse would not be doing that daily. Pt did voice that her friend and her son have voiced that they can assist with this. Pt called her friend Mary, the retired [employer] ASSOCI[employer]. SW explained this all to Mary. Mary has voiced to pt that she does truly feel pt would benefit from going to assisted for a short time before returning home so she can get the best care. Pt is hesitant and voiced she does not want the [facility]. Pt also stated her son, Paddy, feels she will do better at home. Mary stated it would be best mentally for home, but to get the medical care she needs Mary feels like assisted is best. SW did look at pt's insurance and she has [employer]. SW advised Mary and pt that not many facilities take medical [employer]. Pt wanted [facility], but SW has to check as pretty certain they are not in network. SW let them know [facility], [facility], and [facility] are the few that SW knows that take that insurance. At this time pt is unsure of what to do and would like SW to call her son. SW to call pt's son and pt would like Mary and Paddy to talk as well. MYLES called pt's son, Paddy, and explained the situation to him. Paddy wanted to know how long pt would be at assisted. SW advised him that insurance would determine that as she is a precert. Paddy also voiced that he feels she would do better at home. Paddy stated he will be in tomorrow morning between 9-10 and he would like to speak with his brother noelle and meet with SW tomorrow morning.
[2024-02-25 15:51] VITALS: BP 114/58; PULSE 64; TEMP 36.8; O2SAT 94
[2024-02-25 19:52] VITALS: BP 119/55; PULSE 64; TEMP 36.7; O2SAT 94
[2024-02-25] MEDS: ACETAMINOPHEN 500 MG TABLET PO (21:08)
[2024-02-25] MEDS: VANCOMYCIN HCL 1,500 MG in 0.9 % SODIUM CHLORIDE 500 ML 250 MG IV (21:08)
[2024-02-26] VITALS (7 sets, daily range): BP systolic 117–146; BP diastolic 53–72; PULSE 56–75; TEMP 36.4–36.7; O2SAT 94–96
[2024-02-26] MEDS: OXYCODONE HCL/ACETAMINOPHEN 5MG/325MG 1 TAB PO ×4 (00:12→17:59)
[2024-02-26] MEDS: PIPERACILLIN SODIUM/TAZOBACTAM 3.375 GM in 0.9 % SODIUM CHLORIDE 50 ML IV ×3 (00:13→17:52)
[2024-02-26] MEDS: LEVOTHYROXINE SODIUM 125 MCG TABLET PO (05:19)
--- NOTE | 2024-02-26 05:22 | PM.ORPN ---
Progress Note: A&P Assessment and Plan (1) Cellulitis of left hip: (2) Abscess of left hip: Assessment and Plan: Left hip hemiarthroplasty on 12/26/2023 POD #2 s/p I&D left hip subcutaneous tissue over previous surgical incision, Wound vac placement -Pt afebrile overnight, blood cultures taken in ED negative for growth, vitals stable overnight -On Vanc and Zosyn, PICC line ordered, fluid cultures taken in OR, pending -Wound vac in place-will need coordination to have changed 3 times per week. -Pain control, WBAT - Will follow Discussed with my Supervising Physician, Dr Shore. (3) Pain with hip hemiarthroplasty: Qualifiers: Encounter type: initial encounter Qualified Code(s): T84.84XA - Pain due to internal orthopedic prosthetic devices, implants and grafts, initial encounter; Z96.649 - Presence of unspecified artificial hip joint Subjective Subjective Interval history: Patient is postoperative day 2 status post I&D of the left hip subcutaneous tissue surgical wound. Patient is doing well and pain is controlled. Exam Narrative Exam Narrative: On exam patient is laying in the bed sleeping, awakens easily to voice, in no distress. On Inspection there is a wound VAC in place over the previous surgical incision, erythema surrounding incision decreasing and tender with palpation. Thigh compartments are soft and compressible. 5/5 dorsiflexion/plantarflexion. 2+ DP pulses palpated bilaterally. Sensation intact distally with light touch. Constitutional Vital Signs, click to edit/add: Last Vital Signs Temp 97.8 F 02/26/24 04:00 Pulse 61 02/26/24 04:00 Resp 18 02/26/24 04:00 BP 146/72 H 02/26/24 04:00 Pulse Ox 96 02/26/24 04:00 O2 Del Method Room Air 02/26/24 04:00 Urinary Catheter Management Urinary Catheter Management Pure Wick: Cath placed during this visit: no
[2024-02-26 06:11] LABS: Hematocrit 30.8 % (36.0-48.0); Hemoglobin 10.1 g/dL (12.0-16.0); Mean Corpuscular HGB Conc 32.8 g/dL (29.9-35.2); Mean Corpuscular Hemoglobin 29.3 pg (26.7-34.0); Mean Corpuscular Volume 89.3 fL (81.0-99.0); Mean Platelet Volume 8.6 fL (9.5-13.5); Platelet Count 286 10^3/uL (150-450); Red Blood Count 3.45 10^6/uL (4.20-5.40); Red Cell Distribution Width 12.3 % (11.0-15.0); White Blood Count 6.4 10^3/uL (4.0-11.0)
[2024-02-26 06:28] LABS: Alanine Aminotransferase 11 U/L (14-59); Albumin Globulin Ratio 0.7; Albumin Level 2.2 g/dL (3.4-5.0); Alkaline Phosphatase 69 U/L (46-116); Anion Gap 8.8; Aspartate Amino Transferase 11 U/L (15-37); BUN Creatinine Ratio 16.1; Bilirubin Total 0.2 mg/dL (0.2-1.0); Calcium 8.4 mg/dL (8.5-10.1); Chloride 109 mmol/L (98-107); Estimated GFR (African America >60 (>=60 mL/min/1.73m^2); Estimated GFR (Non-African Ame 58 (>=60 mL/min/1.73m^2); Globulin 3.2 g/dL; Glucose 94 mg/dL (74-106); Potassium 3.8 mmol/L (3.5-5.1); Sodium 142 mmol/L (136-145); Total Protein 5.4 g/dL (6.4-8.2)
[2024-02-26] MEDS: [UNRECOGNIZED DRUG - SUPPLY] 125 EACH TP (08:19)
--- NOTE | 2024-02-26 08:51 | PM.PN ---
Progress Note: Subjective Subjective Interval history: Patient is POD #2 from intraop I&D, wash out and wound vac placement. She has been afebrile. Paddy, her son is at bedside. Discussed waiting on culture results and plan for outpatient antibiotic regimen before discharge along with continuous churn buttermaker plan with wound vac. Also awaiting ortho recommendations for this. Family is leaning towards rehab. Exam Narrative Exam Narrative: General: Patient is alert, and oriented to person, place and time with normal affect, proper hygiene Skin: left hip has wound vac in place, draining and working appropriately Head: atraumatic, acephalic Eyes: PERRLA, no nystagmus present, conjunctiva clear, no scleral icterus Ears: normal gross auditory acuity Heart: Normal rate and rhythm, no murmurs/rubs/gallops Lungs: no audible wheezes, crackles and normal breath sounds all lung mendes Abdomen: Normal audible bowel sounds, no distension, No palpable masses, no organomegaly, no rebound/guarding/ or rigidity Musculoskeletal: no swelling bilateral lower extremities Neuro: CN II-X grossly intact Constitutional Vital Signs, click to edit/add: Last Vital Signs Temp 98 F 02/26/24 08:08 Pulse 58 L 02/26/24 08:08 Resp 18 02/26/24 08:08 BP 130/61 02/26/24 08:08 Pulse Ox 95 02/26/24 08:08 O2 Del Method Room Air 02/26/24 08:08 Progress Note: Objective Labs Labs: Short CBC 02/26/24 Range/Units 06:00 WBC 6.4 (4.0-11.0) 10^3/uL Hgb 10.1 L (12.0-16.0) g/dL Hct 30.8 L (36.0-48.0) % Plt Count 286 (150-450) 10^3/uL BMP 02/26/24 06:00 Sodium 142 Potassium 3.8 Chloride 109 H Carbon Dioxide 28.0 BUN 15.0 Creatinine 0.93 Glucose 94 Calcium 8.4 L Liver Function 02/26/24 Range/Units 06:00 Total Bilirubin 0.2 (0.2-1.0) mg/dL AST 11 L (15-37) U/L ALT 11 L (14-59) U/L Alkaline Phosphatase 69 (46-116) U/L Albumin 2.2 L (3.4-5.0) g/dL Progress Note: A&P Assessment and Plan (1) Cellulitis of left hip: Assessment and Plan: POD #2, pain is controlled, H&H stable, wound vac working well. Continue Vanc and Zosyn until cultures from abscess result to guide discharge antibiotic regimen (2) Abscess of left hip: Assessment and Plan: see #1 (3) Pain with hip hemiarthroplasty: Assessment and Plan: treat with tylenol, and scheduled oxycodone, baclofen. PT/OT Qualifiers: Encounter type: initial encounter Qualified Code(s): T84.84XA - Pain due to internal orthopedic prosthetic devices, implants and grafts, initial encounter; Z96.649 - Presence of unspecified artificial hip joint (4) Depression: Assessment and Plan: continue sertraline Qualifiers: Depression Type: unspecified Qualified Code(s): F32.A - Depression, unspecified (5) Hypothyroidism (acquired): Assessment and Plan: continue levothyroxine (6) Primary hypertension: Assessment and Plan: continue losartan Plan Patient is a full code Lovenox for dvt prophylaxis Awaiting culture results to guide antibiotic discharge choice and planning. Urinary Catheter Management Urinary Catheter Management Pure Wick: Cath placed during this visit: no
[2024-02-26] MEDS: LOSARTAN POTASSIUM 25 MG TABLET PO (09:49)
[2024-02-26] MEDS: SERTRALINE HCL 50 MG TABLET PO (09:49)
[2024-02-26] MEDS: ACETAMINOPHEN 500 MG TABLET PO (09:49)
--- NOTE | 2024-02-26 10:56 | SWNOTE1 ---
SW had conversation with pt and son in room. At this time pt and son feel it would be best for pt to go to rehab for a short time. After talking about facilities and the limited options due to her insurance. They have decided they want SW to check [facility], then [facility], then [place]. SW to call. SW did reach out to Petty at [facility] and they will have to run benefits. SW sent demographic sheet for them to run benefits.
--- NOTE | 2024-02-26 12:10 | CM.NOTE ---
Rounds made with Dr. Rios. Dr. Rios reviews labs with son and Nadia. Awaiting culture results for further plan of care. Unlikely, discharge today.
--- NOTE | 2024-02-26 12:20 | SWNOTE1 ---
MYLES had a voicemail from Lourdes at [facility] and they have reviewed and are interested, just need to know if PICC has been placed and what anbx. MYLES called Lourdes back at [facility] and spoke with her. MYLES advised we are not sure on IV anbx and no PICC yet, waiting on cultures. She stated they are interested, but need that information. She stated if they get that information early tomorrow possible that insurance will approve quickly, if not then it's possible she will be here all weekend. MYLES updated nurse and doctor. MYLES to call son. MYLES called Lourdes back at [facility] rehab about wound vac. She stated once pt arrives at rehab there, they will order a wound vac for her. She can go with wet to dry dressing.
--- NOTE | 2024-02-26 12:37 | REH.PTDLY ---
Physical Therapy Daily Note PT Daily Note/Assess Start: 02/24/24 11:18 Freq: Status: Active Protocol: Document 02/26/24 10:15 TARIK (Rec: 02/26/24 12:37 KSTEINLE [id number]) Physical Therapy Daily Note/Assessment Time In 10:15 Time Out 10:40 Subjective Pt in bed upon arrival. Reports she was up in chair for breakfast earlier and hip started hurting a lot so nursing got her back into bed. Pt reports pain level of 7/10, had pain medicine awhile ago. Pt has wound vac and IV running currently. Therapeutic Exercise 8 Minutes (minutes) Therapeutic Exercise 0 Units Therapeutic Exercise Instructed in supine B LE exs 10-15x ea with AP, QS, Treatment heel slides, hip abd slides and SLR for improved strength for ease of transfers and gait. Therapeutic Activity 15 Minutes (minutes) Therapeutic Activity 1 Units Therapeutic Activity Supine to sit transfers with cues to use bedrails Min A Comments . Sit to stand transfer CGA. Gait training with RW 45 feet CGA with therapist pushing IV and managing wound vac for pt. Pt has slow boris and reports leg just feels very heavy with discomfort. Pt able to transfer sit to supine using bed rail and Min A of LE. Total Therapy 23 Minutes Total Physical 1 Therapy Units Daily Note Summary Pt requires Min A with transfers in and out of bed. Pt cautious with gait training and requires CGA for safety with increasing discomfort. Pt would benefit from SNF stay to improve strength and mobility while managing wound vac.
--- NOTE | 2024-02-26 12:54 | SWNOTE1 ---
MYLES called son, Paddy, to update him. He voiced he spoke to Lourdes at [facility] as well. He then asked what [facility] said. MYLES advised that MYLES can send to [facility] and we can see what they say as well. If they both say yes, they would have to pick one. He voiced he is concerned he will get push back from [facility] for [facility] since it is so far. MYLES will check and let him know. MYLES reached out to Lakia at [facility]. She sent back email and said they are tight on beds, but to send and they will review. Referral sent to [facility]. Referral included face sheet, ED note, H&P, provider notes, podiatry notes, case management report, wound consult, nursing notes, diagnostic imaging, med list, and PT/OT notes.
[2024-02-26] MEDS: VANCOMYCIN HCL 1,500 MG in 0.9 % SODIUM CHLORIDE 500 ML 250 MG IV (20:16)
[2024-02-27] MEDS: OXYCODONE HCL/ACETAMINOPHEN 5MG/325MG 1 TAB PO ×3 (00:33→17:10)
[2024-02-27] MEDS: PIPERACILLIN SODIUM/TAZOBACTAM 3.375 GM in 0.9 % SODIUM CHLORIDE 50 ML IV ×4 (00:33→23:31)
[2024-02-27 03:44] VITALS: BP 157/88; PULSE 62; TEMP 36.4; O2SAT 95
[2024-02-27 06:15] LABS: Hematocrit 31.7 % (36.0-48.0); Hemoglobin 10.3 g/dL (12.0-16.0); Mean Corpuscular HGB Conc 32.5 g/dL (29.9-35.2); Mean Corpuscular Hemoglobin 28.9 pg (26.7-34.0); Mean Platelet Volume 8.3 fL (9.5-13.5); Platelet Count 295 10^3/uL (150-450); Red Blood Count 3.56 10^6/uL (4.20-5.40); Red Cell Distribution Width 12.2 % (11.0-15.0); White Blood Count 7.1 10^3/uL (4.0-11.0)
[2024-02-27] MEDS: LEVOTHYROXINE SODIUM 125 MCG TABLET PO (06:17)
[2024-02-27 06:35] LABS: Alanine Aminotransferase 16 U/L (14-59); Albumin Globulin Ratio 0.6; Albumin Level 2.2 g/dL (3.4-5.0); Alkaline Phosphatase 67 U/L (46-116); Anion Gap 7.5; Aspartate Amino Transferase 11 U/L (15-37); BUN Creatinine Ratio 17.9; Bilirubin Total 0.3 mg/dL (0.2-1.0); Calcium 8.3 mg/dL (8.5-10.1); Carbon Dioxide 29.6 mmol/L (21.0-32.0); Chloride 108 mmol/L (98-107); Estimated GFR (African America >60 (>=60 mL/min/1.73m^2); Estimated GFR (Non-African Ame >60 (>=60 mL/min/1.73m^2); Globulin 3.4 g/dL; Glucose 89 mg/dL (74-106); Potassium 4.1 mmol/L (3.5-5.1); Sodium 141 mmol/L (136-145); Total Protein 5.6 g/dL (6.4-8.2)
[2024-02-27 07:26] VITALS: BP 152/70; PULSE 60; TEMP 36.4; O2SAT 95
--- NOTE | 2024-02-27 07:40 | PM.ORPN ---
Progress Note: A&P Assessment and Plan (1) Cellulitis of left hip: (2) Abscess of left hip: Assessment and Plan: Left hip hemiarthroplasty on 12/26/2023 POD #3 s/p I&D left hip subcutaneous tissue over previous surgical incision, Wound vac placement -Pt afebrile overnight, blood cultures taken in ED negative for growth, vitals stable overnight -On Vanc and Zosyn, PICC line ordered, fluid cultures taken in OR, pending -Wound vac in place-will need coordination to have changed 3 times per week. -Pain control, WBAT Discussed with my supervising physician, Dr Shore. (3) Pain with hip hemiarthroplasty: Qualifiers: Encounter type: initial encounter Qualified Code(s): T84.84XA - Pain due to internal orthopedic prosthetic devices, implants and grafts, initial encounter; Z96.649 - Presence of unspecified artificial hip joint Subjective Subjective Interval history: Patient is postoperative day 3 status post I&D of the left hip subcutaneous tissue surgical wound. Patient is doing well and pain is controlled. Exam Narrative Exam Narrative: On exam patient is laying in the bed,in no distress, alert and oriented x 3. On Inspection there is a wound VAC in place over the previous surgical incision, erythema surrounding incision has almost resolved, tenderness with palpation decreasing. Thigh compartments are soft and compressible. 5/5 dorsiflexion/plantarflexion. 2+ DP pulses palpated bilaterally. Sensation intact distally with light touch. Constitutional Vital Signs, click to edit/add: Last Vital Signs Temp 97.6 F 02/27/24 07:26 Pulse 60 02/27/24 07:26 Resp 16 02/27/24 07:26 BP 152/70 H 02/27/24 07:26 Pulse Ox 95 02/27/24 07:26 O2 Del Method Room Air 02/27/24 07:26 Urinary Catheter Management Urinary Catheter Management Pure Wick: Cath placed during this visit: no
[2024-02-27] MEDS: ONDANSETRON PF 4 MG/2 ML VIAL IV (08:34)
[2024-02-27] MEDS: SERTRALINE HCL 50 MG TABLET PO (08:34)
[2024-02-27] MEDS: DOCUSATE SODIUM 100 MG CAPSULE 200 MG PO (08:34)
[2024-02-27] MEDS: LOSARTAN POTASSIUM 25 MG TABLET PO (08:35)
[2024-02-27] MEDS: [UNRECOGNIZED DRUG - SUPPLY] 125 EACH TP (08:35)
--- NOTE | 2024-02-27 09:31 | CM.NOTE ---
2nd Notice of Important Message From Medicare discussed with pt, pt denies questions or concerns.
[2024-02-27 11:05] VITALS: BP 130/67; PULSE 69; TEMP 36.8; O2SAT 95
--- NOTE | 2024-02-27 11:53 | PT.DAILY ---
Physical Therapy Daily Note PT Daily Note/Assess Start: 02/24/24 11:18 Freq: Status: Active Protocol: Document 02/27/24 11:51 AMAYA (Rec: 02/27/24 11:53 AMAYA [id number]) Physical Therapy Daily Note/Assessment Time In/Time Out Time In 11:40 Time Out 11:50 Pain In Pain N/A Pain Out Pain N/A Subjective Subjective Pt sitting in BS chair upon arrival. Agrees to PT. 4/10 L hip pain currently. Therapeutic Exercise Time Therapeutic Exercise 3 Minutes (minutes) Therapeutic Exercise 0 Units Therapeutic Exercise Treatment Therapeutic Exercise Instructed to complete bilat LE strengthening ex 10x ea Treatment to improve mobility prior to gait/transfer Therapeutic Activity Time Therapeutic Activity 7 Minutes (minutes) Therapeutic Activity 1 Units Therapeutic Activity Treatment Chair Transfer Contact Guard Assist Ability Therapeutic Activity Sit>stand to RW CGA for safety. Wound vac is placed on Comments RW. Pt amb 100' with RW, CGA and assist for IV Lines. takes 1x standing rest break due to increased pain. Pt returned to BS chair upon completion with chair alarm activated and call light with in reach. Total Physical Therapy Time Total Therapy 10 Minutes Total Physical 1 Therapy Units Summary Daily Note Summary IMproved gait endurance with 1x standing rest break. Slow boris. Min increased pain with amb.
--- NOTE | 2024-02-27 12:26 | CM.NOTE ---
Rounds made with Dr. Lanza, no discharge today. Awaiting culture reports for discharge antibiotics. PT and OT will continue to work with pt for strengthening. Wound vac intact and IV antibiotics continued. Pt's son at bedside for update. SW working on skilled facility for discharge.
--- NOTE | 2024-02-27 13:24 | SWNOTE1 ---
[facility] is not able to accept. SW called pt's son Paddy and let him know, left message.
--- NOTE | 2024-02-27 14:14 | SWNOTE1 ---
MYLES spoke to son, Paddy, and he is alright with moving forward with [facility]. MYLES called Lourdes at [facility] and spoke with her about cultures not being back yet. MYLES did ask if we could have precert started on the IV anbx that she is on now and then if approved and cultures come back, they could adjust over there? She stated they would need PICC line as well. MYLES let Lourdes know that it will be placed today. Lourdes stated she will need updates and can discuss with doctor and he will be coming to office today. SW to send updates.
--- NOTE | 2024-02-27 14:22 | SWNOTE1 ---
Updates sent to [facility] acute rehab.
[2024-02-27] MEDS: ACETAMINOPHEN 500 MG TABLET PO ×2 (14:26→21:35)
--- NOTE | 2024-02-27 14:45 | P.PN_ITS ---
Progress Note: Subjective Subjective Interval history: Patient stable this am. Pain much improved and tolerable. Starting to have nausea from pain medication. Working with PT and ambulating well. Afebrile. Decreased PO but no emesis or diarrhea. No SOB or cough. No chest pain or palpitations. Exam Constitutional Vital Signs, click to edit/add: Last Vital Signs Temp 98.3 F 02/27/24 11:05 Pulse 69 02/27/24 11:05 Resp 16 02/27/24 11:05 BP 130/67 02/27/24 11:05 Pulse Ox 95 02/27/24 11:05 O2 Del Method Room Air 02/27/24 11:05 Documenting provider has reviewed patient's vital signs: yes Common normals: no apparent distress, oriented x3 and alert HENMT Common normals: normocephalic Eye Common normals: PERRL and EOMs intact bilaterally Respiratory Common normals: normal respiratory effort and clear to auscultation bilaterally Cardio Common normals: regular rate, regular rhythm, no gallops, no murmurs and no rub GI Common normals: Normal to inspection, nondistended, normoactive bowel sounds present and non-tender Extremity Common normals: no pedal edema Progress Note: Objective Labs Labs: Short CBC 02/27/24 Range/Units 06:00 WBC 7.1 (4.0-11.0) 10^3/uL Hgb 10.3 L (12.0-16.0) g/dL Hct 31.7 L (36.0-48.0) % Plt Count 295 (150-450) 10^3/uL BMP 02/27/24 06:00 Sodium 141 Potassium 4.1 Chloride 108 H Carbon Dioxide 29.6 BUN 15.0 Creatinine 0.84 Glucose 89 Calcium 8.3 L Liver Function 02/27/24 Range/Units 06:00 Total Bilirubin 0.3 (0.2-1.0) mg/dL AST 11 L (15-37) U/L ALT 16 (14-59) U/L Alkaline Phosphatase 67 (46-116) U/L Albumin 2.2 L (3.4-5.0) g/dL Progress Note: A&P Assessment and Plan (1) Cellulitis of left hip: (2) Abscess of left hip: (3) Pain with hip hemiarthroplasty: Qualifiers: Encounter type: initial encounter Qualified Code(s): T84.84XA - Pain du e to internal orthopedic prosthetic devices, implants and grafts, initial encounter; Z96.649 - Presence of unspecified artificial hip joint (4) Primary hypertension: (5) Hypothyroidism (acquired): Plan Patient doing well after I&D. Wound vac in place and ortho managing. Remains on vancomycin and zosyn and cultures pending. Continue antibiotics. Monitor l abs and vitals. Will need IV antibiotics for several weeks. Will send information to insurance to start precertification. Urinary Catheter Management Urinary Catheter Management Pure Wick: Cath placed during this visit: no
--- NOTE | 2024-02-27 15:44 | XR_ITS ---
The [address] [address] Patient Name: ASHLYN CHIN MRN: [id number] date: 1945 Sex: F Assigned Patient Location: [place] Current Patient Location: [place] Accession/Order Number: [id number] Exam Date: 02/27/2024 15:45 Report Date: 02/27/2024 16:01 At the request of: TIM RAY Procedure: XR chest 1V EXAMINATION: XR chest 1V HISTORY: PICC placement COMPARISON: No relevant comparison available. FINDINGS: LUNGS: No significant pulmonary parenchymal abnormalities. VASCULATURE: No increased pulmonary vasculature. PLEURA: No pneumothorax, effusion, or pleural thickening. CARDIAC: No cardiomegaly or cardiac silhouette abnormality. MEDIASTINUM: No visible mass or adenopathy. BONES: No fracture or visible bone lesion. OTHER: Left PICC line with tip projecting over right atrium. XR/XR chest 1V IMPRESSION: 1. Right PICC line with tip suspected to be within the right atrium. Consider retracting 2. 5 cm. 2. No acute cardiopulmonary process. Electronically authenticated by: CAROLINE QUIROGA Date: 02/27/2024 16:01
--- NOTE | 2024-02-27 15:59 | SWNOTE1 ---
[facility] and [facility] with the doctor. The phsyician at [facility] will not have precert started until wound cultures are back to determine antibiotic.
--- NOTE | 2024-02-27 16:11 | XR_ITS ---
The [address] [address] Patient Name: ASHLYN CHIN MRN: [id number] date: 1945 Sex: F Assigned Patient Location: MS Current Patient Location: MS Accession/Order Number: [id number] Exam Date: 02/27/2024 16:28 Report Date: 02/27/2024 18:02 At the request of: TIM RAY Procedure: XR chest 1V EXAM: XR chest 1V HISTORY: picc line retracted 2.5 cm COMPARISON: 02/27/2024 TECHNIQUE: Chest X-ray AP, 1 view FINDINGS: Support devices: Left arm PICC terminates near the cavoatrial junction. Lungs/pleura: No consolidation, effusion, or pneumothorax. Heart and mediastinum: Normal contours. Bones: No acute abnormality identified. XR/XR chest 1V Impression: Left arm PICC terminates near the cavoatrial junction. No radiographic evidence of acute cardiopulmonary process. Electronically authenticated by: MURPHY CANTU Date: 02/27/2024 18:02
[2024-02-27 17:04] VITALS: BP 162/75; PULSE 68; TEMP 36.7; O2SAT 94
[2024-02-27 19:28] VITALS: BP 136/72; PULSE 68; TEMP 36.4; O2SAT 92
[2024-02-27] MEDS: VANCOMYCIN HCL 1,500 MG in 0.9 % SODIUM CHLORIDE 500 ML 250 MG IV (21:35)
[2024-02-27 23:36] VITALS: BP 148/66; PULSE 70; TEMP 36.8; O2SAT 95
[2024-02-28 03:44] VITALS: BP 161/72; PULSE 71; TEMP 36.5; O2SAT 91
[2024-02-28] MEDS: LEVOTHYROXINE SODIUM 125 MCG TABLET PO (06:23)
[2024-02-28 06:44] LABS: Hematocrit 30.7 % (36.0-48.0); Hemoglobin 10.2 g/dL (12.0-16.0); Mean Corpuscular HGB Conc 33.2 g/dL (29.9-35.2); Mean Corpuscular Hemoglobin 29.5 pg (26.7-34.0); Mean Corpuscular Volume 88.7 fL (81.0-99.0); Mean Platelet Volume 8.3 fL (9.5-13.5); Platelet Count 272 10^3/uL (150-450); Red Blood Count 3.46 10^6/uL (4.20-5.40); Red Cell Distribution Width 12.2 % (11.0-15.0); White Blood Count 7.7 10^3/uL (4.0-11.0)
[2024-02-28 07:05] LABS: Vancomycin Trough 22.2 ug/mL (5.0-20.0)
[2024-02-28 07:22] LABS: Alanine Aminotransferase 14 U/L (14-59); Albumin Globulin Ratio 0.8; Albumin Level 2.5 g/dL (3.4-5.0); Alkaline Phosphatase 61 U/L (46-116); Anion Gap 11.4; Aspartate Amino Transferase 13 U/L (15-37); BUN Creatinine Ratio 10.5; Bilirubin Total 0.3 mg/dL (0.2-1.0); Calcium 8.7 mg/dL (8.5-10.1); Carbon Dioxide 28.4 mmol/L (21.0-32.0); Chloride 108 mmol/L (98-107); Estimated GFR (African America >60 (>=60 mL/min/1.73m^2); Estimated GFR (Non-African Ame >60 (>=60 mL/min/1.73m^2); Glucose 96 mg/dL (74-106); Potassium 3.8 mmol/L (3.5-5.1); Sodium 144 mmol/L (136-145); Total Protein 5.5 g/dL (6.4-8.2)
[2024-02-28 08:08] VITALS: BP 159/73; PULSE 74; TEMP 36.5; O2SAT 94
[2024-02-28] MEDS: ACETAMINOPHEN 500 MG TABLET PO (08:48)
[2024-02-28] MEDS: SERTRALINE HCL 50 MG TABLET PO ×2 (08:48→12:06)
[2024-02-28] MEDS: LOSARTAN POTASSIUM 25 MG TABLET PO (08:48)
[2024-02-28] MEDS: PIPERACILLIN SODIUM/TAZOBACTAM 3.375 GM in 0.9 % SODIUM CHLORIDE 50 ML IV ×2 (08:49→16:52)
[2024-02-28] MEDS: [UNRECOGNIZED DRUG - SUPPLY] 125 EACH TP (08:55)
--- NOTE | 2024-02-28 10:06 | PT.DAILY ---
Physical Therapy Daily Note PT Daily Note/Assess Start: 02/24/24 11:18 Freq: Status: Active Protocol: Document 02/28/24 09:51 [id number] (Rec: 02/28/24 10:05 [id number]) Physical Therapy Daily Note/Assessment Time In/Time Out Time In 08:26 Time Out 08:47 Pain In Pain Level 6 Pain Out Pain Level 7 Subjective Subjective Patient received in bed and agreeable to participate with PT. States she is soiled and requests to be cleaned. States pain is located to her L hip. No bed alarm. Patient does have wound vac to L hip. Patient states she is waiting for her breakfast and requests to not walk far as she would like her breakfast hot. Therapeutic Exercise Time Therapeutic Exercise 5 Minutes (minutes) Therapeutic Exercise 0 Units Therapeutic Exercise Treatment Therapeutic Exercise Patient completed supine KAPIL LE x 10 reps: ankle pumps, Treatment quad/glut sets. Seated in chair for LAQ's, marching, resisted hip ABD/ADD x 10 reps to increase KAPIL LE strength for gait and mobility. Therapeutic Activity Time Therapeutic Activity 16 Minutes (minutes) Therapeutic Activity 1 Units Therapeutic Activity Treatment Bed Mobility Ability Contact Guard Assist Chair Transfer Contact Guard Assist Ability Therapeutic Activity Patient required MAX +2 for pericare. Patient Comments performed rolling 1x to R and 1X to L with use of R bed rail and HHS to L. Supine>L sit with use of bed rail is CGA +1. Requires additional time to scoot self to EOB. No LOB while seated EOB and no UE support. Sit> stand to 2WW CGA +1 with safe hand placement demonstrated. Patient ambulated ~18' x1 with 2WW and CGA +1. Patient seated in chair at bedside, CBWR and legs covered with blanket. Patients bedside tray with breakfast placed in front of her, states she does not require help with tray. Total Physical Therapy Time Total Therapy 21 Minutes Total Physical 1 Therapy Units Summary Daily Note Summary Patient demonstrates improve bed mobility and transfers this date, does require increased time for bed mobility. Patient would benefit from inpatient rehab to address functional deficits in order to return to PLOF.
--- NOTE | 2024-02-28 11:32 | PM.ORPN ---
Progress Note: A&P Assessment and Plan (1) Cellulitis of left hip: (2) Abscess of left hip: Assessment and Plan: Left hip hemiarthroplasty on 12/26/2023 POD #4 s/p I&D left hip subcutaneous tissue over previous surgical incision, Wound vac placement -Pt afebrile overnight, blood cultures taken in ED negative for growth, vitals stable overnight -On Vanc and Zosyn, PICC line in place, fluid cultures taken in OR, aerobic culture negative for growth, anaerobic/ fungus pending, tissue culture no growth 18-24 hrs -Wound vac in place-will need coordination to have changed 3 times per week. -Pain control, WBAT Plan discussed with my supervising physician, Dr Shore (3) Pain with hip hemiarthroplasty: Qualifiers: Encounter type: initial encounter Qualified Code(s): T84.84XA - Pain due to internal orthopedic prosthetic devices, implants and grafts, initial encounter; Z96.649 - Presence of unspecified artificial hip joint (4) Primary hypertension: (5) Hypothyroidism (acquired): Subjective Subjective Interval history: Patient is postoperative day 4 status post I&D of the left hip subcutaneous tissue surgical wound. Patient is doing well from a pain standpoint other than when her wound vac dressing was changed yesterday. She has been ambulating without issue now. Exam Narrative Exam Narrative: On exam patient is laying in the bed,in no distress, alert and oriented x 3. On Inspection there is a wound VAC in place over the previous surgical incision, erythema surrounding incision has almost resolved, mild tenderness with palpation. Thigh compartments are soft and compressible. 5/5 dorsiflexion/plantarflexion. 2+ DP pulses palpated bilaterally. Sensation intact distally with light touch. Constitutional Vital Signs, click to edit/add: Last Vital Signs Temp 97.7 F 02/28/24 08:08 Pulse 74 02/28/24 08:08 Resp 18 02/28/24 08:08 BP 159/73 H 02/28/24 08:08 Pulse Ox 94 L 02/28/24 08:08 O2 Del Method Room Air 02/28/24 08:08 Urinary Catheter Management Urinary Catheter Management Pure Wick: Cath placed during this visit: no
--- NOTE | 2024-02-28 11:34 | P.PN_ITS ---
Progress Note: Subjective Subjective Interval history: Since admission pain has improved, no other complaints other than depression symptoms more active in the last couple days Exam Constitutional Vital Signs, click to edit/add: Last Vital Signs Temp 97.7 F 02/28/24 08:08 Pulse 74 02/28/24 08:08 Resp 18 02/28/24 08:08 BP 159/73 H 02/28/24 08:08 Pulse Ox 94 L 02/28/24 08:08 O2 Del Method Room Air 02/28/24 08:08 Documenting provider has reviewed patient's vital signs: yes Common normals: apparent distress (Depressed, tearful) Chest Common normals: inspection of chest normal Respiratory Common normals: normal respiratory effort and no retractions Auscultation: rhonchi (Atelectasis sounds bilateral lower lobes) Cardio Common normals: regular rate and regular rhythm Neuro Common normals: oriented x3 and CN's II-XII intact bilaterally Psych Common normals: denies suicidal ideation Mood and affect: depressed mood Progress Note: Objective Labs Labs: Short CBC 02/28/24 Range/Units 06:06 WBC 7.7 (4.0-11.0) 10^3/uL Hgb 10.2 L (12.0-16.0) g/dL Hct 30.7 L (36.0-48.0) % Plt Count 272 (150-450) 10^3/uL BMP 02/28/24 06:06 Sodium 144 Potassium 3.8 Chloride 108 H Carbon Dioxide 28.4 BUN 8.0 Creatinine 0.76 Glucose 96 Calcium 8.7 Liver Function 02/28/24 Range/Units 06:06 Total Bilirubin 0.3 (0.2-1.0) mg/dL AST 13 L (15-37) U/L ALT 14 (14-59) U/L Alkaline Phosphatase 61 (46-116) U/L Albumin 2.5 L (3.4-5.0) g/dL Progress Note: A&P Assessment and Plan (1) Cellulitis of left hip: (2) Abscess of left hip: (3) Pain with hip hemiarthroplasty: Qualifiers: Encounter type: initial encounter Qualified Code(s): T84.84XA - Pain due to internal orthopedic prosthetic devices, implants and grafts, initial encounter; Z96.649 - Presence of unspecified artificial hip joint (4) Primary hypertension: (5) Hypothyroidism (acquired): Plan Cellulitis and abscess of left hip:-Continue with current antibiotics, anaerobic cultures are still pending, a aerobic cultures returned and showed no growth, Primary hypertension: Maintain current medications. Hypothyroidism (acquired): Maintain current medications Atelectasis on lung exam today-PEP therapy, patient denies dyspnea Depression-discussed options, will increase Zoloft to 100 mg a day Admission status: Patient has been to the operating room, medically necessary treatment will span more than 2 midnights, inpatient status Urinary Catheter Management Urinary Catheter Management Pure Wick: Cath placed during this visit: no
[2024-02-28 15:20] VITALS: BP 150/77; PULSE 75; TEMP 36.7; O2SAT 96
--- NOTE | 2024-02-28 15:45 | PC.NURSE ---
Print Designer spoke with lab and asked about anaerobic culture results that are still pending. She said that this can take longer as they grow slower. She recommends checking back on Friday. Print Designer let Dr Lambert know this via tiger text
[2024-02-28 19:49] LABS: Vancomycin Trough 13.7 ug/mL (5.0-20.0)
[2024-02-28 20:30] VITALS: BP 149/76; PULSE 70; TEMP 36.6; O2SAT 94
[2024-02-28] MEDS: VANCOMYCIN HCL 1,500 MG in 0.9 % SODIUM CHLORIDE 500 ML 250 MG IV (21:21)
[2024-02-29] MEDS: PIPERACILLIN SODIUM/TAZOBACTAM 3.375 GM in 0.9 % SODIUM CHLORIDE 50 ML IV ×3 (00:04→16:32)
[2024-02-29] MEDS: LEVOTHYROXINE SODIUM 125 MCG TABLET PO (06:00)
[2024-02-29 06:03] VITALS: BP 162/79; PULSE 73; TEMP 36.7; O2SAT 96
[2024-02-29 06:15] LABS: Basophils Absolute Auto 0.1 10^3/uL (0.0-0.1); Basophils Percent Auto 0.8 % (0.2-2.0); Eosinophils Absolute Auto 0.3 10^3/uL (0.0-0.7); Eosinophils Percent Auto 3.7 % (0.9-7.0); Hematocrit 30.8 % (36.0-48.0); Hemoglobin 10.1 g/dL (12.0-16.0); Immature Granulocytes Pct Auto 1.3 % (0.0-0.5); Lymphocytes Absolute Auto 1.9 10^3/uL (1.2-3.8); Lymphocytes Percent Auto 25.4 % (20.5-60.0); Mean Corpuscular HGB Conc 32.8 g/dL (29.9-35.2); Mean Corpuscular Volume 88.5 fL (81.0-99.0); Monocytes Absolute Auto 0.5 10^3/uL (0.3-0.8); Monocytes Percent Auto 5.9 % (1.7-12.0); Neutrophils Absolute Auto 4.8 10^3/uL (1.4-6.5); Neutrophils Percent Auto 62.9 % (43.0-75.0); Platelet Count 244 10^3/uL (150-450); Red Blood Count 3.48 10^6/uL (4.20-5.40); Red Cell Distribution Width 12.5 % (11.0-15.0); White Blood Count 7.6 10^3/uL (4.0-11.0)
[2024-02-29 06:26] LABS: Anion Gap 12.4; BUN Creatinine Ratio 8.3; Calcium 8.4 mg/dL (8.5-10.1); Carbon Dioxide 27.9 mmol/L (21.0-32.0); Chloride 108 mmol/L (98-107); Estimated GFR (African America >60 (>=60 mL/min/1.73m^2); Estimated GFR (Non-African Ame >60 (>=60 mL/min/1.73m^2); Glucose 99 mg/dL (74-106); Potassium 4.3 mmol/L (3.5-5.1); Sodium 144 mmol/L (136-145)
[2024-02-29] MEDS: LOSARTAN POTASSIUM 25 MG TABLET PO ×2 (08:33→11:21)
[2024-02-29] MEDS: ACETAMINOPHEN 500 MG TABLET 1000 MG PO (08:33)
[2024-02-29] MEDS: SERTRALINE HCL 50 MG TABLET 100 MG PO (08:33)
[2024-02-29] MEDS: ENSURE HP 237 ML LIQUID PO (08:36)
[2024-02-29] MEDS: [UNRECOGNIZED DRUG - SUPPLY] 125 EACH TP (08:39)
--- NOTE | 2024-02-29 10:47 | P.PN_ITS ---
Progress Note: Subjective Subjective Interval history: No new complaints, patient still feels improved pain control Exam Constitutional Vital Signs, click to edit/add: Last Vital Signs Temp 98.1 F 02/29/24 06:03 Pulse 73 02/29/24 06:03 Resp 18 02/29/24 06:03 BP 162/79 H 02/29/24 06:03 Pulse Ox 96 02/29/24 06:03 O2 Del Method Room Air 02/29/24 06:03 Documenting provider has reviewed patient's vital signs: yes Common normals: apparent distress (Depressed, tearful) Chest Common normals: inspection of chest normal Respiratory Common normals: normal respiratory effort and no retractions Auscultation: rhonchi (Atelectasis sounds bilateral lower lobes-improved) Cardio Common normals: regular rate and regular rhythm Neuro Common normals: oriented x3 and CN's II-XII intact bilaterally Psych Common normals: denies suicidal ideation Mood and affect: depressed mood Progress Note: Objective Labs Labs: Short CBC 02/29/24 Range/Units 06:06 WBC 7.6 (4.0-11.0) 10^3/uL Hgb 10.1 L (12.0-16.0) g/dL Hct 30.8 L (36.0-48.0) % Plt Count 244 (150-450) 10^3/uL BMP 02/29/24 06:06 Sodium 144 Potassium 4.3 Chloride 108 H Carbon Dioxide 27.9 BUN 7.0 Creatinine 0.84 Glucose 99 Calcium 8.4 L Progress Note: A&P Assessment and Plan (1) Cellulitis of left hip: (2) Abscess of left hip: (3) Pain with hip hemiarthroplasty: Qualifiers: Encounter type: initial encounter Qualified Code(s): T84.84XA - Pain due to internal orthopedic prosthetic devices, implants and grafts, initial encounter; Z96.649 - Presence of unspecified artificial hip joint (4) Primary hypertension: (5) Hypothyroidism (acquired): Plan Cellulitis and abscess of left hip:-Continue with current antibiotics, anaerobic cultures are still pending, a aerobic cultures returned and showed no growth, Primary hypertension: Maintain current medications. Hypothyroidism (acquired): Maintain current medications Atelectasis on lung exam today-PEP therapy seems to be helping Depression-discussed options, increased Zoloft to 100 mg a day Admission status: Patient has been to the operating room, medically necessary treatment will span more than 2 midnights, inpatient status Urinary Catheter Management Urinary Catheter Management Pure Wick: Cath placed during this visit: no
[2024-02-29 11:21] VITALS: BP 130/63; PULSE 68; TEMP 36.4; O2SAT 96
[2024-02-29 19:00] VITALS: BP 163/72; PULSE 72; TEMP 36.7; O2SAT 95
[2024-02-29] MEDS: VANCOMYCIN HCL 1,500 MG in 0.9 % SODIUM CHLORIDE 500 ML 250 MG IV (21:49)
[2024-02-29] MEDS: 0.9 % SODIUM CHLORIDE 250 ML 10 ML IV (21:53)
[2024-03-01] MEDS: PIPERACILLIN SODIUM/TAZOBACTAM 3.375 GM in 0.9 % SODIUM CHLORIDE 50 ML IV ×4 (00:12→23:45)
[2024-03-01 03:00] VITALS: BP 129/72; PULSE 72; TEMP 36.7; O2SAT 94
[2024-03-01 05:57] LABS: Basophils Absolute Auto 0.1 10^3/uL (0.0-0.1); Eosinophils Absolute Auto 0.3 10^3/uL (0.0-0.7); Eosinophils Percent Auto 3.9 % (0.9-7.0); Hemoglobin 10.4 g/dL (12.0-16.0); Immature Granulocytes Abs Auto 0.08 10^3/uL (0.00-0.03); Lymphocytes Absolute Auto 1.8 10^3/uL (1.2-3.8); Lymphocytes Percent Auto 22.5 % (20.5-60.0); Mean Corpuscular HGB Conc 33.5 g/dL (29.9-35.2); Mean Corpuscular Hemoglobin 29.8 pg (26.7-34.0); Mean Corpuscular Volume 88.8 fL (81.0-99.0); Mean Platelet Volume 8.5 fL (9.5-13.5); Monocytes Absolute Auto 0.5 10^3/uL (0.3-0.8); Monocytes Percent Auto 6.4 % (1.7-12.0); Neutrophils Absolute Auto 5.2 10^3/uL (1.4-6.5); Neutrophils Percent Auto 65.2 % (43.0-75.0); Platelet Count 246 10^3/uL (150-450); Red Blood Count 3.49 10^6/uL (4.20-5.40); Red Cell Distribution Width 12.6 % (11.0-15.0)
[2024-03-01] MEDS: LEVOTHYROXINE SODIUM 125 MCG TABLET PO (06:04)
[2024-03-01 06:11] LABS: Anion Gap 10.9; BUN Creatinine Ratio 11.1; Calcium 8.5 mg/dL (8.5-10.1); Carbon Dioxide 27.1 mmol/L (21.0-32.0); Chloride 108 mmol/L (98-107); Estimated GFR (African America >60 (>=60 mL/min/1.73m^2); Estimated GFR (Non-African Ame >60 (>=60 mL/min/1.73m^2); Glucose 107 mg/dL (74-106); Sodium 142 mmol/L (136-145)
[2024-03-01 07:14] VITALS: BP 152/73; PULSE 67; TEMP 36.8; O2SAT 98
[2024-03-01] MEDS: ENSURE HP 237 ML LIQUID PO (08:39)
[2024-03-01] MEDS: LOSARTAN POTASSIUM 50 MG TABLET PO (08:40)
[2024-03-01] MEDS: [UNRECOGNIZED DRUG - SUPPLY] 125 EACH TP (08:40)
[2024-03-01] MEDS: SERTRALINE HCL 50 MG TABLET 100 MG PO (08:42)
--- NOTE | 2024-03-01 10:31 | PT.DAILY ---
Physical Therapy Daily Note PT Daily Note/Assess Start: 02/24/24 11:18 Freq: Status: Active Protocol: Document 03/01/24 10:00 QUE (Rec: 03/01/24 10:29 QUE [id number]) Physical Therapy Daily Note/Assessment Time In/Time Out Time In 10:00 Time Out 10:12 Subjective Subjective Some pain in R knee, but overall doing well. Eager to go on walk. Therapeutic Exercise Time Therapeutic Exercise 4 Minutes (minutes) Therapeutic Exercise 0 Units Therapeutic Exercise Treatment Therapeutic Exercise Seated exercises B LE in all planes to promote improved Treatment strength 15 reps. Therapeutic Activity Time Therapeutic Activity 8 Minutes (minutes) Therapeutic Activity 1 Units Therapeutic Activity Treatment Chair Transfer Standby Assistance Ability Therapeutic Activity Gait 200 ft. with RW SBA. No LOB noted. Did require Comments assistance with hooking wound vac on and off walker. Total Physical Therapy Time Total Therapy 12 Minutes Total Physical 1 Therapy Units Summary Daily Note Summary Improving ability with gait distance. Mild fatigue post RX. All needs met. Nursing entering room upon DRIVING TEACHER exiting room today.
--- NOTE | 2024-03-01 11:00 | CM.NOTE ---
Rounds made with Dr. Rodriguez, discussed with pt and family discharge status and awaiting final cultures. No discharge today.
[2024-03-01] MEDS: ACETAMINOPHEN 500 MG TABLET 1000 MG PO ×2 (11:25→18:11)
--- NOTE | 2024-03-01 13:14 | P.IMPN_ITS ---
Progress Note: A&P Assessment and Plan (1) Cellulitis of left hip: (2) Abscess of left hip: (3) Primary hypertension: (4) Hypothyroidism (acquired): Plan Cellulitis and Abscess of left Hip. S/p OR drainage, debridement on 02/24/24. OR cultures are negative so far. Patient on IV vancomycin/zosyn. Discussed with Orthopedic surgery - Will need 4 weeks total of IV abx therapy. Discussed with case management/social work therapist. They will start precertification process for the patient for rehab. She will need 1.5 mg IV vancomycin daily and 2 gm IV rocephin daily for a total of 4 weeks. She already has PICC line placed. She will also need once a week CBC, CMP, CRP, ESR and vancomycin trough. She will also need w ound vac dressing changed 3 /week. Duration of wound vac to be determined by Orthopedic surgery. C/w rest of the patient's home medications. Doing well overall. Will d/c daily labs. Internal Medicine - PN: Subj Subjective Interval history: Seen and examined. No new events or complaints. Pain is well controlled. Exam Constitutional Vital Signs, click to edit/add: Last Vital Signs Temp 98.2 F 03/01/24 07:14 Pulse 67 03/01/24 07:14 Resp 16 03/01/24 08:00 BP 152/73 H 03/01/24 07:14 Pulse Ox 98 03/01/24 07:14 O2 Del Method Room Air 03/01/24 07:14 Documenting provider has reviewed patient's vital signs: yes Common normals: no apparent distress and oriented x3 General appearance: cooperative Respiratory Common normals: normal respiratory effort and clear to auscultation bilaterally Effort & inspection: able to speak in complete sentences Auscultation: clear to auscultation bilaterally Cardio Common normals: regular rate, S1 normal heart sound and S2 normal heart sound Rate: regular rate Heart sounds: S1 normal and S2 normal Extremity Common normals: no clubbing, cyanosis or edema Neuro Common normals: oriented x3, moves all extremities and no focal motor deficits Psych Common normals: mental status grossly normal, denies hallucinations, denies homicidal ideation and denies suicidal ideation Internal Medicine - PN: Obj Da Labs Labs: Laboratory Results - last 24 hr 03/01/24 05:40 WBC 8.0 RBC 3.49 L Hgb 10.4 L Hct 31.0 L MCV 88.8 MCH 29.8 MCHC 33.5 RDW 12.6 Plt Count 246 MPV 8.5 L Neut % (Auto) 65.2 Lymph % (Auto) 22.5 Barron % (Auto) 6.4 Eos % (Auto) 3.9 Baso % (Auto) 1.0 Neut # (Auto) 5.2 Lymph # (Auto) 1.8 Barron # (Auto) 0.5 Eos # (Auto) 0.3 Baso # (Auto) 0.1 Abs Immat Gran (auto) 0.08 H Imm/Tot Granulo (auto) 1.0 H Sodium 142 Potassium 4.0 Chloride 108 H Carbon Dioxide 27.1 Anion Gap 10.9 BUN 10.0 Creatinine 0.90 Est GFR ( Amer) >60 Est GFR (Non-Af Amer) >60 BUN/Creatinine Ratio 11.1 Glucose 107 H Calcium 8.5 Urinary Catheter Management Urinary Catheter Management Pure Wick: Cath placed during this visit: no
--- NOTE | 2024-03-01 13:24 | SWNOTE1 ---
Dr. Rodriguez stopped to speak with case management and MYLES. Cultures are back and negative at this time. Doctor spoke with Dr. Shore and still needing IV antibiotics for 4 weeks. SW [facility] and [facility] SW to send updates to fax at [facility] in rehab once physician documents.
--- NOTE | 2024-03-01 13:26 | PM.ORPN ---
Progress Note: A&P Assessment and Plan (1) Cellulitis of left hip: (2) Abscess of left hip: Assessment and Plan: Left hip hemiarthroplasty on 12/26/2023 POD #6 s/p I&D left hip subcutaneous tissue over previous surgical incision, Wound vac placement -Pt afebrile overnight, blood cultures taken in ED negative for growth, vitals stable overnight -On Vanc and Zosyn, PICC line in place, fluid cultures taken in OR, aerobic culture negative for growth, anaerobic/ fungus cultures pending, tissue culture no growth 18-24 hrs - Recommend 2g Rocephin daily -Wound vac in place-will need coordination to have changed 3 times per week. -Pain control, WBAT - Follow up with Dr Shore in 1-2 weeks in office Plan discussed with my supervising physician, Dr Shore (3) Primary hypertension: (4) Hypothyroidism (acquired): Subjective Subjective Interval history: Patient is postoperative day 6 status post I&D of the left hip subcutaneous tissue surgical wound. Patient is doing well from a pain standpoint. She has been ambulating without issue now. Exam Narrative Exam Narrative: On exam patient is laying in the bed,in no distress, alert and oriented x 3. On Inspection there is a wound VAC in place over the previous surgical incision, erythema surrounding incision has almost resolved, mild tenderness with palpation. Thigh compartments are soft and compressible. 5/5 dorsiflexion/plantarflexion. 2+ DP pulses palpated bilaterally. Sensation intact distally with light touch. Constitutional Vital Signs, click to edit/add: Last Vital Signs Temp 98.2 F 03/01/24 07:14 Pulse 67 03/01/24 07:14 Resp 16 03/01/24 08:00 BP 152/73 H 03/01/24 07:14 Pulse Ox 98 03/01/24 07:14 O2 Del Method Room Air 03/01/24 07:14 Urinary Catheter Management Urinary Catheter Management Pure Wick: Cath placed during this visit: no
--- NOTE | 2024-03-01 13:29 | SWNOTE1 ---
MYLES faxed physician notes, PICC line info, cutures, PT/OT notes, med list, labs, and vitals to [facility] in rehab.
[2024-03-01] MEDS: OXYCODONE HCL/ACETAMINOPHEN 5MG/325MG 1 TAB PO ×2 (13:32→20:02)
[2024-03-01 14:32] LABS: Bilirubin Urine NEGATIVE (NEGATIVE); Blood Urine NEGATIVE (NEGATIVE); Clarity Urine CLEAR (CLEAR); Color Urine LT. YELLOW (YELLOW); Glucose Urine UA NEGATIVE (NEGATIVE); Ketones Urine NEGATIVE (NEGATIVE); Leukocyte Esterase Urine NEGATIVE (NEGATIVE); Nitrite Urine NEGATIVE (NEGATIVE); Protein Urine NEGATIVE (NEG/TRACE); Urobilinogen Urine 0.2 EU/dL (0.2-1.0); pH Urine 6.5 (5.0-9.0)
[2024-03-01 14:42] LABS: Bacteria Urine NONE SEEN #/HPF (NONE SEEN); Cast Seen? SEEN #/LPF (NONE SEEN); Crystals Seen? None Seen #/HPF (None Seen); Hyaline Casts Urine RARE; Mucus Urine NONE SEEN (NONE SEEN); RBC Urine 0-2 #/HPF (0-2); Squamous Epithelial Cell Urine MODERATE #/LPF (NONE/RARE); WBC Urine 0-2 #/HPF (NONE SEEN)
[2024-03-01 15:00] VITALS: BP 121/66; PULSE 76; TEMP 36.7; O2SAT 95
--- NOTE | 2024-03-01 15:24 | SWNOTE1 ---
MYLES spoke to Lourdes at [facility] and she voiced she received updates and she is not sure what doctor will say as she did well with therapy. She will take updates to doctor and let SW know. MYLES spoke to pt in room and had her son, Paddy, on the phone as well. SW explained there is a chance [facility] may not accept due to pt doing so well. SW explained that we could look at places such as [facility], but there is a chance they will deny as well due to pt ambulating so well. They may also only approve for a short time and she will need IV's anbx for 4 weeks, so they would have to worry about transitioning home from [facility] or elsewhere. Pt's son and pt agreed [facility] then family is prepared to take her home with home health. Pt's son voiced her neighbor does work for and would like to use the company she works for. Pt thinks it is [facility]. SW to reach out to [facility] again. Pt's son voiced that everything has to be set up and in place in order for her to go home. SW did let him know that a wound vac would be ordered and pt would have to go home with a wet to dry dressing change until wound vac delivered and nurse would take care of the dressing change. MYLES expressed to pt and son that family would be taught how to administer IV meds, but the nurse would NOT do that everyday and someone would have to assist with they do not come in. Pt and son voiced understanding. SW to let pt and family know once [facility] calls SW back. SW to call [facility] about pt.
--- NOTE | 2024-03-01 15:37 | SWNOTE1 ---
MYLES spoke to Margy at [facility] and they do take her insurance and they do believe it is there nurse that lives right by pt. MYLES sent [facility] updates just in case pt goes home with .
--- NOTE | 2024-03-01 16:14 | SWNOTE1 ---
SW received a call and [facility] rehab is not able to accept as pt did get to a point that she was doing too well for them.
--- NOTE | 2024-03-01 16:18 | SWNOTE1 ---
SW spoke to pt's son, Paddy, in regards to [facility] re[facility] not able to accept due to pt doing too well. SW did let him know again that SW can look in to SNF, such as [facility], because [facility] is acute rehab and [facility] is different than acute rehab. SW let him know that SW has no idea how long she would get approved for, whether it was a week and then the would have to transition her home with HH or for 3-4 weeks for the IV's. Paddy is going to speak with his brother and then let SW know tomorrow.
[2024-03-01] MEDS: VANCOMYCIN HCL 1,500 MG in 0.9 % SODIUM CHLORIDE 500 ML 250 MG IV (20:02)
[2024-03-01 20:21] VITALS: BP 136/66; PULSE 76; TEMP 36.6; O2SAT 95
[2024-03-02 05:13] VITALS: BP 144/72; PULSE 66; TEMP 36.6; O2SAT 93
[2024-03-02] MEDS: LEVOTHYROXINE SODIUM 125 MCG TABLET PO (05:52)
[2024-03-02 08:57] VITALS: BP 138/70; PULSE 60; TEMP 36.5; O2SAT 95
[2024-03-02] MEDS: ENSURE HP 237 ML LIQUID PO (08:58)
[2024-03-02] MEDS: PIPERACILLIN SODIUM/TAZOBACTAM 3.375 GM in 0.9 % SODIUM CHLORIDE 50 ML IV (08:58)
[2024-03-02] MEDS: PROSTAT 15 GM PROTEIN/100 CAL 30 ML LIQUID PACKET PO (08:58)
[2024-03-02] MEDS: JUVEN PACKET 1 PACKET PO (09:00)
[2024-03-02] MEDS: SERTRALINE HCL 50 MG TABLET 100 MG PO (09:01)
[2024-03-02] MEDS: LOSARTAN POTASSIUM 50 MG TABLET PO (09:01)
[2024-03-02] MEDS: [UNRECOGNIZED DRUG - SUPPLY] 125 EACH TP (09:02)
[2024-03-02] MEDS: ACETAMINOPHEN 500 MG TABLET 1000 MG PO (09:02)
--- NOTE | 2024-03-02 09:33 | SWNOTE1 ---
SW sent wound vac order to [facility], this included order form, demograhic sheet, and ortho procedure note.
--- NOTE | 2024-03-02 09:37 | SWNOTE1 ---
SW faxed order for IV anbx, demographic sheet, PICC line info, vanco trough, physician note from 03/01/24, and med list to [facility] for home IV Antibiotics.
--- NOTE | 2024-03-02 10:19 | SWNOTE1 ---
MYLES spoke with pt's son and they do want to continue with [facility]. MYLES did advise that SW has sent information to the wound vac company and to [facility] [employer]. Pt's son has expressed several times that he just wants everything in place prior to her leaving. MYLES did advise again that she will go home with a wet to dry dressing change and the goal is for wound vac to be delivered tomorrow. MYLES also let him know that the goal is for everything for IV antibiotics to be in place by 1:00 so the meds can be delivered tonight and start of care tomorrow. MYLES to update son once she speak to wound vac [employer] and [employer].
--- NOTE | 2024-03-02 10:58 | REH.PTDLY ---
Physical Therapy Daily Note PT Daily Note/Assess Start: 02/24/24 11:18 Freq: Status: Active Protocol: Document 03/02/24 10:05 TARIK (Rec: 03/02/24 10:58 TARIK [id number]) Physical Therapy Daily Note/Assessment Time In 09:50 Time Out 10:05 Subjective Pt is now going to be going home with HH per son. Hoping to be DC today with pt needing antibiotics and wound vac at home. Pt states hip is uncomfortable the most when sitting statically. Feels better when up and moving. Therapeutic Exercise 6 Minutes (minutes) Therapeutic Exercise 0 Units Therapeutic Exercise Instructed in seated exs 15x ea for improved strength Treatment with pt denying any increase in pain in L hip when performing exs. Exs included, AP, LAQ, marching, hip abd step outs, and hip add squeeze. Therapeutic Activity 8 Minutes (minutes) Therapeutic Activity 1 Units Therapeutic Activity Pt performs sit to and from stand transfers SBA with Comments assist to clip wound vac onto RW. Gait training with RW SBA 250 feet with no complaints of increased pain with gait. Pt does have fatigue afterwards. Pt returns to chair after gait with assist for pt to bring legs up in recliner. Total Therapy 14 Minutes Total Physical 1 Therapy Units Daily Note Summary Progressed gait distance with mild fatigue noted. Pt does not need assist with transfers, SBA for safety. Pt reports pain is improved when up and moving. Pt is now going to go home with HH as acute rehab did not accept her.
[2024-03-02 11:23] VITALS: BP 116/64; PULSE 74; TEMP 36.6; O2SAT 95
[2024-03-02] MEDS: CEFTRIAXONE 2,000 MG in 0.9 % SODIUM CHLORIDE 100 ML 200 MG IV (11:27)
--- NOTE | 2024-03-02 11:55 | SWNOTE1 ---
MYLES called and spoke to Marcela at [facility]. She voiced she will need H&P and need to know when start of care will be. MYLES faxed H&P. MYLES spoke to Theresa in our pharmacy and Rocephin given now and Vanco can be given at 2:00. Start of care of HH can be any time after 9:00am tomorrow. MYLES called [facility] and updated them. SW to call I about wound vac.
--- NOTE | 2024-03-02 12:04 | SWNOTE1 ---
MYLES called [employer] to check on wound vac order. They have received and will call MYLES back with an update. They are aware pt will need it tomorrow.
--- NOTE | 2024-03-02 13:07 | SWNOTE1 ---
MYLES spoke with Marcela from [facility] and she was letting SW know that pt will have a co-pay amount of $91.92 for the 2 antibiotics. SW will let pt's son, Paddy, know and will call back if there is any issues. [facility] is requesting another vanco trough. MYLES called our pharmacy and spoke to Theresa and she will call [facility] back and discuss with them. MYLES called pt's son and updated him. He would like to be the contact for antibiotic delivery and coordination for home health. SW to let both [facility] and [facility] know this. MYLES advised Paddy that SW waiting to hear back from [facility] about wound vac. Pt's son did ask if wound vac is not delivered tomorrow, is pt still going home as he does not want her without wound vac for too long SW let him know that SW would have to reach out to doctor in regards to this. He voiced understanding.
--- NOTE | 2024-03-02 14:05 | PM.DS1 ---
DS: Providers Provider Date of admission: 02/21/24 13:47 Primary care physician: DOMINIC HERBERT Admitting clinician: Cathi Rios Attending physician on admission: Cathi Rios Consults: 02/21/24 Consult to [employer] Intelligence Officer Chief Routine Reason for consult:: Correction 02/21/24 13:39 Occupational Therapy Eval and Treat Routine Reason for consultation: weakness and pain in left hip Has provider been notified: No Physical Therapy Eval and Treat Routine Reason for consultation: weakness and pain in left hip Has provider been notified: No 02/21/24 14:18 Consult to Orthopedic Surgery Routine Consulting Provider: Antony Shore Reason For Exam: Reason for consultation: left hip cellulitis Has provider been notified: Yes 02/24/24 21:02 Consult to PICC Line RN Routine Consulting Provider: Antony Shore Reason for consultation: IV antibiotics for several weeks Has provider been notified: No Attending physician on discharge: Shaikh Michael Discharging clinician: Shaikh Michael Anticipated date of discharge: 03/02/24 DS: Diagnosis Discharge Diagnosis (1) Cellulitis of left hip: (2) Abscess of left hip: (3) Primary hypertension: (4) Hypothyroidism (acquired): DS: Summary Hospital Course Hospital Course: 78 y.o white female with past medical history of depression, Hypertension, and hypothyroidism underwent left hemiarthroplasty on 12/26/23 noted pain and redness around left hip region with subjective fever and chills. Work up revealed 5.4 cm x 9.3 cm fluid collection in subcutaneous tissue lateral to left hip. Pt was treated with IV vancomycin/zosyn for Hip Abscess. She was taken to OR on 02/24/24 and abscess was drained. No joint or hardware involvement was noted. Her blood cultures and OR cultures are negative. She also had wound vac in place post op. She was evaluated by PT/OT and was initially approved for acute rehab but her ambulation improved with PT during hospital stay. Patient is medically stable for discharge. She will need 4 weeks of IV vancomycin/rocephin. She will need weekly CBC, CMP and vancomycin trough. Patient will need outpatient f/u with orthopedics. Status at Discharge Functional status at discharge: uses cane/walker Overall status at discharge: patient is back to baseline Time Spent with Patient Time attestation: Total time spent providing and/or coordinating discharge services: Time spent: greater than 30 minutes Exam Constitutional Vital Signs, click to edit/add: Last Vital Signs Temp 97.8 F 03/02/24 11:23 Pulse 74 03/02/24 11:23 Resp 16 03/02/24 11:23 BP 116/64 03/02/24 11:23 Pulse Ox 95 03/02/24 11:23 O2 Del Method Room Air 03/02/24 11:23 Documenting provider has reviewed patient's vital signs: yes Common normals: no apparent distress and oriented x3 General appearance: cooperative Respiratory Common normals: normal respiratory effort and clear to auscultation bilaterally Effort & inspection: able to speak in complete sentences Auscultation: clear to auscultation bilaterally Cardio Common normals: regular rate, S1 normal heart sound and S2 normal heart sound Rate: regular rate Heart sounds: S1 normal and S2 normal Extremity Common normals: no clubbing, cyanosis or edema Neuro Common normals: oriented x3, moves all extremities and no focal motor deficits Psych Common normals: mental status grossly normal, denies hallucinations, denies homicidal ideation and denies suicidal ideation DS: Data Data Completed and Pending Labs on day of discharge: Labs from last 24 hours 03/01/24 13:35 Urine Color Lt. yellow Urine Clarity Clear Urine pH 6.5 Ur Specific Rock 1.020 Urine Protein Negative Urine Glucose (UA) Negative Urine Ketones Negative Urine Occult Blood Negative Urine Nitrite Negative Urine Bilirubin Negative Urine Urobilinogen 0.2 Ur Leukocyte Esterase Negative Urine RBC 0-2 Urine WBC 0-2 A Ur Squamous Epith Cells Moderate A Urine Crystals None seen Urine Bacteria None seen Urine Casts Seen A Hyaline Casts Rare Urine Mucus None seen Preliminary micro results at discharge 02/24/24 18:00 Mycology Culture - Preliminary Hip Left 02/24/24 18:00 Mycology Culture - Preliminary Hip Left 02/24/24 18:00 Anaerobic Culture - Preliminary Hip Left 02/24/24 18:00 Anaerobic Culture - Preliminary Hip Left Aerobic Culture - Preliminary Discharge Plan Discharge Disposition: Home Health Service Condition: Good Discharge Medications: New vancomycin in 0.9 % sodium chl 1.5 gram/250 mL solution 1.5 g IV Q24H ceftriaxone 2 gram recon soln 2 g IV DAILY Continued levothyroxine 125 mcg tablet 125 mcg PO .ACB losartan 25 mg tablet 25 mg PO QAM sertraline 100 mg tablet 50 mg PO .QD hydrocodone-acetaminophen 5-325 mg Tablet 1 tab PO Q4H PRN (Reason: Pain) 2 Days Qty: 12 0RF acetaminophen 500 mg Tablet 1,000 mg PO Q6H PRN (Reason: Pain Scale 4-6) 3 Days Qty: 12 0RF baclofen 10 mg Tablet 10 mg PO BID PRN (Reason: Spasms) 2 Days Qty: 4 0RF Ear Wax Removal Drops 6.5 % Drops 7 drp otic (ear) BID 7 Days Qty: 1 0RF aspirin 81 mg capsule 81 mg PO DAILY Qty: 14 0RF Activity: increase activity as tolerated Diet: advance to your usual diet Print Language: Luxembourgish Patient Instructions: How to Care for Your PICC (Peripherally Inserted Central Catheter) (DC) Secretarial Stenographer/Ncqa Specialist Instructions: Discharge home with [facility]. IV antibiotics and wound vac. Antibiotics will be delivered this evening by [facility], phone number is [phone]. Start of care will be tomorrow by [facility], phone number is [phone]. Wound Vac will be delivered to the home on 03/03/24, [employer] is the company and phone number is Forms: Portal Instructions Follow Up Appointments: F/u with PCP in one week F./u with Orthopedic in 1-2 weeks
--- NOTE | 2024-03-02 14:16 | SWNOTE1 ---
MYLES spoke to person at [facility]. He voiced that it appears that the wound vac order is set to be released today. It will be up to delivery whether it will be delivered this evening or tomorrow and they will reach out to pt. MYLES did request they reach out to pt's son, Paddy in regards to wound vac delivery. He stated they will reach out to who is listed. MYLES provided Paddy's contact. The gentleman also stated the person working on this is out for lunch, but he can have them call MYLES back. MYLES asked if wound vac will for sure be delivered tonight or tomorrow. He again stated it appears that it is set to be released and that typically means it will be out for delivery this evening or tomorrow. MYLES did request the person that is working on wound vac call MYLES back. He took down MYLES number and name and will provide to the person working on wound vac order. MYLES updated Dr. Rodriguez and let him know that [facility] is telling MYLES that wound vac is set to be released and IV antibiotics are set for tomorrow.
--- NOTE | 2024-03-02 14:53 | SWNOTE1 ---
MYLES spoke to pt's son and he spoke to infusion [employer] [facility] in regards to delivery of antibiotics. MYLES informed him that SW spoke to wound [employer] and it is set to be released today, but it will be up to delivery if they deliver tonight or tomorrow. Pt's son asked when it is delivered do they call ? MYLES advised son that SW has listed phone numbers for the infusion company, wound vac [employer], and home health [facility]. MYLES did advise for him to call the nurse once it is delivered, if he can't get ahold of her there is a number listed for the home health office and they will contact nurse. At this point pt will get her last IV antibiotic and then will be ready for discharge. MYLES let her son know that someone will call him once pt is closer to being ready for discharge. MYLES updated the nurse as well. MYLES faxed dc med rec, CRF, wound vac order, infusion order, and dc summary to [facility].
[2024-03-02] MEDS: VANCOMYCIN HCL 1,500 MG in 0.9 % SODIUM CHLORIDE 500 ML 250 MG IV (15:26)
[2024-03-02 15:27] VITALS: BP 127/63; PULSE 73; TEMP 36.9; O2SAT 94
--- NOTE | 2024-03-02 15:48 | SWNOTE1 ---
MYLES called son, Paddy, and let him know that patient will be ready around 6:00pm.
[2024-03-02] MEDS: OXYCODONE HCL/ACETAMINOPHEN 5MG/325MG 1 TAB PO (17:33)
--- NOTE | 2024-03-03 12:51 | SWNOTE1 ---
MYLES received a call from pt's son, Paddy, and he voiced he was upset as [facility] called about wound vac and it will not be delivered until tomorrow. He voiced he was very upset and told SW that everything needed to be in place prior to discharge. MYLES did apologize and did let pt's son know that [employer] had told SW that it would be delivered yesterday evening or today. Pt's son did ask if he could go pick it up somewhere, SW advised that it is from the company and you can't pickle solution maker at a facility. He stated the HH nurse will be there in about an hour. SW did let him know that nurse can assess. MYLES did offer to speak with Dr. Rodriguez and Dr. Shore to check if there is anything else that should be done. MYLES spoke to and recommended to call Dr. Shore. MYLES spoke with Dr. Shore via telephone with case management. The situation was explained that pt left yesterday evening and SW was told by [facility] that wound Vac would be delivered yesterday evening or today, but it will not be coming until tomorrow. SW did let him know that HH nurse will be stopping in to the home today. Dr. Shore re-assured previous order of wet to dry dressing change if needed until wound vac arrives and at this time nothing further. MYLES called son back and let him know that Dr. Shore provided re-assurance of previous order of wet to dry dressing change as needed by HH nurse until wound vac arrives. Pt's son did voiced again that he wanted all this in place and that he was not happy. MYLES did apologize and again voiced that SW was told by the wound vac company that it would be delivered yesterday evening or today. MYLES did call [facility] nurse, En. MYLES did explain to En the situation and also let her know that MYLES and case management spoke with Dr. Shore via telephone and he provided re-assurance of previous order of wet to dry dressing change as needed until wound vac arrives. En voiced she is heading there now.
--- NOTE | 2024-03-04 12:08 | CM.NOTE ---
Called and spoke with pt's son Jeevan to update on recent culture report and need for an additional antibiotic. This was called in by Dr. Rodriguez to [facility] as listed in pt's chart. Son verbalizes understanding and voices concerns that wound vac has not been delivered yet. SW will call [facility] to track wound vac status and reach back out to Jeevan.
--- NOTE | 2024-03-04 12:15 | SWNOTE1 ---
SW called [employer] and wound vac will be delivered between 12:45 and 2:45pm. MYLES called pt's son, Paddy, and notified him.
--- NOTE | 2024-03-04 13:41 | CM.DCFOLLOWU ---
Person spoke with: Pt's son How are you feeling? Doing better How is your pain? No pain Did you understand your discharge instructions? Yes Do you have any questions about your discharge instructions? Yes regarding wound vac delivery, Madeleine called and updated son on time of delivery today Were you given any prescriptions at discharge? Yes Were you able to get your prescriptions filled? Yes and updated son regarding new script that was called into today d/t final culture that came back today Do you understand how to take your medications as ordered? Yes Do you have any questions about your follow up appointment and do you plan to keep your follow up appointment? No they are scheduled Is there anything else that you would like to discuss? No Questions/Comments/Concerns/Other:
== END 2024-03-02 18:30 | disposition home health service (06) | DRG 857 ==
LOC: ER 13:22 → MS 15:21
PROVIDERS: Family Medicine; Orthopaedic Surgery; Admitting Provider Internal Medicine; Emergency Provider Emergency Medicine; PCP Internal Medicine; Visit Provider Internal Medicine
PROC: 0JDM0ZZ Extraction of Left Upper Leg Subcutaneous Tissue and Fascia, Open Approach (ICD-10-PCS; principal; 2024-02-24 16:30)
DX: T81.41XA Infection following a procedure, superficial incisional surgical site, initial encounter (principal); J98.11 Atelectasis; L02.416 Cutaneous abscess of left lower limb; T81.31XA Disruption of external operation (surgical) wound, not elsewhere classified, initial encounter; T84.84XA Pain due to internal orthopedic prosthetic devices, implants and grafts, initial encounter; L03.116 Cellulitis of left lower limb; B96.6 Bacteroides fragilis [B. fragilis] as the cause of diseases classified elsewhere; E03.9 Hypothyroidism, unspecified; F32.A Depression, unspecified; I10 Essential (primary) hypertension; Z96.642 Presence of left artificial hip joint; Z96.651 Presence of right artificial knee joint; Y79.2 Prosthetic and other implants, materials and accessory orthopedic devices associated with adverse incidents; Z79.82 Long term (current) use of aspirin; Z79.890 Hormone replacement therapy; Z79.899 Other long term (current) drug therapy; Z88.2 Allergy status to sulfonamides
CPT/HCPCS: 36415; 36569; 36592; 71045; 73502; 73700; 80048; 80053; 80202; 81001; 83605; 84550; 85025; 85027; 85652; 86140; 86850; 86900; 86901; 87040; 87070; 87075; 87102; 87150; 87206; 94667; 94668; 96374; 97110; 97161; 97165; 97530; 97535; 97605; 99285; 99999; C1887; J0696; J1100; J1650; J2270; J2371; J2405; J2543; J2704; J2765; J3010; J3370; J3490

== ENCOUNTER 2024-03-05 12:21 | Outpatient (REF) | payer MEDICARE, SELFPAY ==
[2024-03-05 12:54] LABS: Basophils Absolute Auto 0.1 10^3/uL (0.0-0.1); Basophils Percent Auto 1.3 % (0.2-2.0); Eosinophils Absolute Auto 0.3 10^3/uL (0.0-0.7); Eosinophils Percent Auto 3.2 % (0.9-7.0); Hematocrit 31.3 % (36.0-48.0); Hemoglobin 10.5 g/dL (12.0-16.0); Immature Granulocytes Abs Auto 0.02 10^3/uL (0.00-0.03); Immature Granulocytes Pct Auto 0.3 % (0.0-0.5); Lymphocytes Absolute Auto 1.6 10^3/uL (1.2-3.8); Mean Corpuscular HGB Conc 33.5 g/dL (29.9-35.2); Mean Corpuscular Hemoglobin 29.8 pg (26.7-34.0); Mean Corpuscular Volume 88.9 fL (81.0-99.0); Mean Platelet Volume 9.3 fL (9.5-13.5); Monocytes Absolute Auto 0.4 10^3/uL (0.3-0.8); Monocytes Percent Auto 5.6 % (1.7-12.0); Neutrophils Absolute Auto 5.3 10^3/uL (1.4-6.5); Neutrophils Percent Auto 68.6 % (43.0-75.0); Platelet Count 241 10^3/uL (150-450); Red Blood Count 3.52 10^6/uL (4.20-5.40); Red Cell Distribution Width 13.5 % (11.0-15.0); White Blood Count 7.7 10^3/uL (4.0-11.0)
[2024-03-05 13:02] LABS: Erythrocyte Sedimentation Rate 6 mm/hr (<=30)
[2024-03-05 13:13] LABS: Alanine Aminotransferase 22 U/L (14-59); Albumin Globulin Ratio 0.9; Albumin Level 2.8 g/dL (3.4-5.0); Alkaline Phosphatase 70 U/L (46-116); Anion Gap 11.2; Aspartate Amino Transferase 14 U/L (15-37); BUN Creatinine Ratio 11.8; Bilirubin Total 0.4 mg/dL (0.2-1.0); C Reactive Protein <0.50 mg/dL (<=0.50); Calcium 8.3 mg/dL (8.5-10.1); Carbon Dioxide 27.6 mmol/L (21.0-32.0); Chloride 106 mmol/L (98-107); Estimated GFR (African America >60 (>=60 mL/min/1.73m^2); Estimated GFR (Non-African Ame 58 (>=60 mL/min/1.73m^2); Glucose 135 mg/dL (74-106); Potassium 3.8 mmol/L (3.5-5.1); Sodium 141 mmol/L (136-145); Total Protein 5.8 g/dL (6.4-8.2); Vancomycin Trough 13.8 ug/mL (5.0-20.0)
== END 2024-03-05 12:22 | disposition home or self-care (01) ==
LOC: LAB 12:21
PROVIDERS: PCP Internal Medicine; Visit Provider Internal Medicine
DX: L03.116 Cellulitis of left lower limb (principal)
CPT/HCPCS: 36415; 80053; 80202; 85025; 85652; 86140

== ENCOUNTER 2024-03-08 13:08 | Outpatient (REF) | payer MEDICARE, SELFPAY ==
--- OUTSIDE RECORDS SUMMARY | 2024-03-08 13:32 | XMS_ITS | CCD ---
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 Worker Name Role Phone SHAW FRANCOIS Unavailable Unavailable FRNACOIS SHAW Unavailable Unavailable ALESSANDRO SHAW Unavailable Unavailable FRANCOIS SHAW Unavailable Unavailable Alessandro II Shaw Primary Care Provider [phone] DO Naya Weber Attending Provider Shaw Francois II Primary Care Provider [phone] ABHYANKAR, GARRETT Admitting Unavailable ABCHARITYANKAR, GARRETT Attending Unavailable DR SHAW FRANCOIS Primary Care Unavailable [facility], DR NAYA Lewis Consulting Unavailable ABHYANKAR, GARRETT Consulting Unavailable Shaw Francois II Primary Care Provider ABHYANKAR, GARRETT Attending Unavailable ABHYANKAR, GARRETT Referring [...] Other Provider DO Amy Zacarias Other Provider [phone] MD Rufino Valdovinos Other Provider [phone] DO Trevor Bloom Other Provider [phone] MD Edmund Palencia Other Provider [phone] MD Moriah Torre Other Provider [phone] MD Donovan Jordan Other Provider Unavailable DAWN [...] Other Provider MD Vargas Ambriz Other Provider [phone] DAWN Tejada Allison Other Provider MD Merrick Cheng Other [...] Unavailabl e Francois Shaw Primary Care Unavailable [place] II, Jeevan M Attending Unavailabl e [place] II, Jeevan M Admitting Unavailabl e Francois Shaw Primary Care Unavailable Daniel II, Jeevan Rayo Attending Unavailabl e Daniel II, Jeevan M Admitting Unavailabl e Daniel II, Jeevan M Admitting Unavailabl e [place] II, Jeevan M Attending Unavailabl e Francois Shaw Primary Care Unavailable Francois Shaw Primary Care Unavailable [place] II, Jeevan M Attending Unavailabl e [place] II, Jeevan M Admitting Unavailabl e [place] II, Jeevan M Admitting Unavailabl e [place] II, Jeevan M Attending Unavailabl e Alessandro Shaw Primary Care Unavailable Francois Shaw Primary Care Unavailable Daniel II, Jeevan Rayo Attending Unavailabl e [place] II, Jeevan M Admitting Unavailabl e Nancy [...] ANTIBIOTICS)] Drug Allergy 2 Rash, Swelling, Unknown [facility] Work Phone: (1 source) Sulfonamides (Antibiotic) Drug allergy (disorder) 6 [facility]ository (20 sources) Nitrofurantoin Drug Allergy 1 Unknown [facility] Healthcare (1 source) Sulfonamides (Antibiotic) Drug allergy (disorder) 4 [facility] Repository Medications Current Medications Medication Drug Class(es) Dates Sig (Normalized) Sig (Original) acetaminophen 500 mg oral tablet (20 sources) Start: 03-02-2024 take 2 tablets by mouth every six hours as needed for pain GNP PAIN RELIEF EX-STRENGTH 500 MG tablet Take 1,000 mg by mouth every 6 (six) hours if needed for moderate pain 03/02/2024 Active Start: 08-21-2023 take 1000 mg by mout h every eight hours Acetaminophen Active 1000 MG PO Q8H 180 30 August 21, 2023 12:00am do not reconcile until DOS: 09/01/2023 med to bed Start: 08-18-2023 take 2 tablets by [facility] every eight hours Acetaminophen (Tylenol Extra Strength) 500 mg tablet Active 1000 MG PO Every 8 hours August 18, 2023 12:00am acetaminophen 325 mg / HYDROcodone bitartrate 5 mg oral tablet (6 sources) Opioid Agonist Start: 02-02-2024 End: 02-08-2024 take 1 tablet by mouth every six hours for pain HYDROcodone-acetaminophen ([place]) 5-325 MG tablet Indications: Closed fracture of [...] reconcile until DOS: 09/01/2023 med to bed cefTRIAXone 100 mg/ml injectable solution (1 source) Cephalosporin Antibacterial Start: 03-02-2024 cefTRIAXone (Rocephin) 10 g 03/02/2024 Active Cholecalciferol (20 sources) Vitamin D Start: 05-22-2021 take 1 capsule by mouth once daily Cholecalciferol (Vitamin D3) (Vitamin D3) 10 mcg (400 unit) Capsule Active 10 MCG PO Daily May 22, 2021 12:00am Start: 05-22-2021 take 1 capsule by [facility] once daily Cholecalciferol (Vitamin D3) (Vitamin D3) 10 mcg (400 unit) Capsule Active 10 MCG PO Daily May 22, 2021 12:00am cholecalciferol (Vitamin D-3) 50 MCG (1999) tablet 1 (one) time each day at [...] (16 sources) Proton Pump Inhibitor Start: 06-26-19 24 take 1 capsule by mouth once daily in the morning Omeprazole Active 1 CAP PO Every morning June 26, 2023 12:00am [employer] CAPSULE Orally bid; Note: Source Status: Start; Refills: 11; Qty: 60 Capsule; Provider: Gus Severino Start: 06-26-2023 take 1 capsule by mo uth twice daily Omeprazole Active 1 CAP PO [...] by maria de jesus th once daily. Vancomycin HCl in NaCl 1.5-0.9 GM/250ML-% solution (1 source) Start: 03-02-2024 Vancomycin HCl in NaCl 1.5-0.9 GM/250ML-% solution Infuse 1.5 g into a venous catheter 1 (one) time each day at the same time X 4 weeks Delivered by [facility] 03/02/2024 Active Completed/Discontinued Medications Medication Drug Class(es) Dates Sig (Normalized) Sig (Original) azithromycin 250 mg oral tablet (13 sources) Macrolide Antimicrobial Start: 07-17-2023 End: 08-18-2023 Azithromycin Discontinued 500 MG PO July 17, 2023 12:00am August 18, 2023 10:18am docusate sodium 50 mg / sennosides, assisted 8.6 mg oral tablet (10 sources) Start: 08-21-2023 End: 10-15-2023 take 2 tablets by mouth once daily Sennosides-Docusat e Sodium (Senokot-S) 8.6-50 mg tablet Discontinued 2 TAB PO daily August 21, 2023 12:00am October 15, 2023 2:43pm do not reconcile until DOS: 09/01/2023 med to bed [facility] als-Lutein (CENTRUM SILVER) ORAL Tab (1 source) Start: 04-17-2011 take 1 tablet by mouth once daily Multivitamins-[place] rals-Lutein (CENTRUM SILVER) ORAL Tab Take 1 tablet by mouth once daily. 90 tablet 4 04/17/2011 Active Comment on above: Take 1 tablet by maria de jesus th once daily. 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; Translations: [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] Onset: 07-17-2023 Episodic Other [...] Test Name Value Interpretation Reference Range Facility ALL CBC WITH AUTO DIFFon BASOPHILS ABSOLUTE AUTO 0.1 [facility] Basophils/100 WBC (Bld) 1.3 % 0.2 - 2.0 % [facility] Eosinophils/100 WBC (Bld) 3.2 % 0.9 - 7.0 % [facility] Erythrocyte distribution width (RBC) [Ratio] 13.5 % 11.0 - 15.0 % [facility] Hematocrit (Bld) [Volume fraction] 31.3 % Low 36.0 - 48.0 % [facility] Hemoglobin (Bld) [Mass/Vol] 10.5 g/dL Low 12.0 - 16.0 g/dL [facility] IMMATURE GRANULOCYTES ABS AUTO 0.02 [facility] Immature granulocytes/100 WBC (Bld) 0.3 % 0.0 - 0.5 % [facility] Interpretation and review of laboratory results Abnormal [facility] LYMPHOCYTES ABSOLUTE AUTO 1.6 [facility] Lymphocytes/100 WBC (Bld) 21 % 20.5 - 60.0 % [facility] MCH (RBC) [Entitic mass] 29.8 pg 26.7 - 34.0 pg [facility] MCHC (RBC) [Mass/Vol] 33.5 g/dL 29.9 - 35.2 g/dL [facility] MCV (RBC) [Entitic vol] 88.9 fL 81.0 - 99.0 fL [facility] MONOCYTES ABSOLUTE AUTO 0.4 [facility] Monocytes/100 WBC (Bld) 5.6 % 1.7 - 12.0 % [facility] NEUTROPHILS ABSOLUTE AUTO 5.3 [facility] Neutrophils/100 WBC (Bld) 68.6 % 43.0 - 75.0 % [facility] Platelet mean volume (Bld) [Entitic vol] 9.3 fL Low 9.5 - 13.5 fL [facility] TBH EO # 0.3 [facility] TBH PLT 241 [facility] TB RBC 3.52 [facility] WBC 7.7 [facility] XR HIP 2-3 VW W PELVIS LEFTo n 01-16-2024 XR HIP 2-3 VW W PELVIS LEFT EXAM: XR HIP 2-3 VW W PELVIS LEFT HISTORY: Closed fracture of neck of left femur, initial encounter ([facility]) COMPARISON: 12/26/2023, Raphael. IMPRESSION: FINDINGS/IMPRESSION: 1. Skin neptali remain. 2. 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 3. Anatomic alignment. 4. No hardware failure, fracture, or dislocation. Interpreted by: Reza Hennessy Jr., MD Signed by: Reza Hennessy Jr., MD 01/16/[address] [facility] XR Pelvis and Hip - left 2 V iewson 01-16-2024 FINDINGS/IMPRESSION: 1. Skin neptali remain. 2. 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 3. Anatomic alignment. 4. No hardware failure, fracture, or dislocation. [facility] RIS CONSOLIDATED EXAM: XR HIP 2-3 VW W PELVIS LEFT HISTORY: Closed fracture of neck of left femur, initial encounter ([facility]) COMPARISON: 12/26/2023, Rapheal. [facility] CONSOLIDATED Reza Hennessy Jr., MD - 01/16/2024 EXAM: XR HIP 2-3 VW W PELVIS LEFT HISTORY: Closed fracture of neck of left femur, initial encounter ([facility]) COMPARISON: 12/26/2023, Raphael. IMPRESSION: FINDINGS/IMPRESSION: 1. Skin neptali remain. 2. 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 3. Anatomic alignment. 4. No hardware failure, fracture, or dislocation. [facility] Radiology Study observation (narrative) [facility] XR Pelvis and Hip - left 2 V iewsOrdered By: Reza Hennessy on 01-16-2024 [facility] Work Phone: Laboratory - Microbiology an d Antimicrobial susceptibilityon 12-30-2023 Bacteria identified Cx Nom (U) *ABNORMAL* [facility] Bacteria identified Cx Nom (U) Greater than 100,000 colony forming units per mL [facility] Bacteria identified Cx Nom (U) [facility] URINE CULTURE, ROUTINEon Bacteria identified Cx [...] Bacteria identified Cx Nom (U) Performed at: [facility] Bacteria identified Cx Nom (U) [address] [place] [address] [id number] [facility] Bacteria identified Cx Nom (U) Yard Worker: Kendell Teague PhD, Phone: [phone] [facility] Bacteria identified Cx Nom (U) [...] RT 2V*on 11-25-2023 XR femur RT 2V* [facility] [address] [place] [address] XRay Report Signed Patient: Nadia Almeida MR#: [id number] : 1945 Acct:[id number] Age/Sex: 78 / F ADM Date: 11/25/23 [place] [facility] [place]: Type: [facility] Attending Dr: Jeevan Sanchez II, MD Copies to: Jeevan Sanchez MD Ordering Provider: Jeevan Sanchez MD Date of Service: 11/25/23 XR/XR femur RT 2V*: Z47.1 - Aftercare following joint replacement surgery ([id number]) XR/XR tibia fibula RT 2V*: Z47.1 - Aftercare following joint replacement surgery ([id number]) XR/XR knee RT 2V: Z47.1 - Aftercare [...] Jennifer Jon M.D.11/25/2023 5:49 PM Dictation Location: [place] [address] Transcribed By: [facility] 11/25/231748 Dictated By: Jennifer Jon MD 11/25/231744 Signed By: 11/25/231748 Normal [facility] XR knee RT 3V - NOT FOR ER U Prachi 10-15-2023 XR knee RT 3V - NOT FOR ER USE [facility] [address] [place] [address] XRay Report Signed Patient: Nadia Almeida MR#: [id number] : 1945 Acct:[id number] Age/Sex: 77 / F ADM Date: 10/15/23 [place] [facility] [place]: Type: [facility] Attending Dr: Jeevan Sanchez II, MD [...] Ashwin Brown M.D.10/15/2023 3:57 PM Dictation Location: [place] [address] Transcribed By: [facility] 10/15/231556 Dictated By: Ashwin Brown II, MD 10/15/231555 Signed By: 10/15/23 155 Normal [facility] Automated basophil %Ordered By: Jeevan Sanchez on 09-02-2023 Basophils/100 WBC (Bld) 0.3 % Normal . [facility] Comment on above: Performed By: #### B MP #### [address] Automated basophil countOrde red By: Jeevan Sanchez on 09-02-2023 Basophils (Bld) [#/Vol] 0.0 10*3/uL Normal 0.0-0.2 [facility] Comment on above: Result Comment: PERF ORMED BY: [place] [id number] PATHOLOGIST CONTRACT TECHNICAL WRITER CAMILO SEBASTIAN M.D. Performed By: #### B MP #### [address] Automated blood monocyte cou ntOrdered By: Jeevan Sanchez on 09-02-2023 Monocytes (Bld) [#/Vol] 0.7 10*3/uL Normal 0.0-0.8 [facility] Comment on above: Performed By: #### B MP #### [address] Automated eosinophil %Ordere d By: Jeevan Sanchez on 09-02-2023 Eosinophils/100 WBC (Bld) 0.8 % Normal . [facility] Comment on above: Performed By: #### B MP #### [address] Automated eosinophil countOr dered By: Jeevan Sanchez on 09-02-2023 Eosinophils (Bld) [#/Vol] 0.1 10*3/uL Normal 0.0-0.45 [facility] Comment on above: Performed By: #### B MP #### [facility] [address] Automated monocyte %Ordered By: Jeevan Sanchez on 09-02-2023 Monocytes/100 WBC (Bld) 6.3 % Normal . [facility] Comment on above: Performed By: #### B MP #### [facility] [address] Automated neutrophil %Ordere d By: Jeevan Sanchez on 09-02-2023 Neutrophils/100 WBC (Bld) 77.9 % Normal . [facility] Comment on above: Performed By: #### B MP #### [address] Basic Metabolic Panelon 08-11 Creatinine Clr Calc Pharmacy 62.04 Normal [facility] Comment on above: Result Comment: PERF ORMED BY: [address] [place] [address] PATHOLOGIST CONTRACT TECHNICAL WRITER CAMILO SEBASTIAN M.D. Performed By: #### B MP #### [address] GFR/1.73 sq M.predicted MDRD (S/P/Bld) [Vol rate/Area] mL/min/{1.73_m2} Normal [facility] Comment on above: Performed By: #### B MP #### [address] Calcium [Mass/volume] in Ser um or PlasmaOrdered By: Jeevan Sanchez on 09-02-2023 Calcium [Mass/Vol] 8.5 mg/dL Low 8.6-10.3 [facility] Comment on above: Performed By: #### B MP #### [place] [address] [place] Carbon dioxide, total [Moles /volume] in Serum or PlasmaOrdered By: Jeevan Sanchez on 09-02-2023 CO2 [Moles/Vol] 28.5 mmol/L Normal 21.0-31.0 [facility] Comment on above: Performed By: #### B MP #### [address] Chloride [Moles/volume] in S liudmila or PlasmaOrdered By: Jeevan Sanchez on 09-02-2023 Chloride [Moles/Vol] 106 mmol/L Normal 98-107 [facility] Comment on above: Performed By: #### B MP #### [address] Complete Blood Count Auto Di ffon 09-02-2023 Mean Corpuscular HGB Conc 35.3 g/dL High 32.0-35.0 [facility] Comment on above: Performed By: #### B MP #### [address] NRBC% 0.1 /100{WBC} Normal 0-0.5 [facility] Comment on above: Performed By: #### B MP #### [address] Creatinine [Mass/volume] in Serum or PlasmaOrdered By: Jeevan Sanchez on 09-02-2023 Creatinine [Mass/Vol] 0.79 mg/dL Normal 0.60-1.20 [facility] Comment on above: Performed By: #### B MP #### [address] Erythrocyte distribution wid th [Ratio] by Automated countOrdered By: Jeevan Sanchez on 09-02-2023 Erythrocyte distribution width (RBC) [Ratio] 14.0 % Normal 11.9-15.3 [facility] Comment on above: Performed By: #### B MP #### [address] Erythrocytes [#/volume] in B lood by Automated countOrdered By: Jeevan Sanchez on 09-02-2023 RBC (Bld) [#/Vol] 4.09 10*6/uL Normal 3.60-5.00 [facility] Comment on above: Performed By: #### B MP #### [address] Glucose [Mass/volume] in Ser um or PlasmaOrdered By: Jeevan Sanchez on 09-02-2023 Glucose [Mass/Vol] 118 mg/dL High 70-100 [facility] Comment on above: ADA recommended refe rence rangeRandom Glucose Reference Range is dependent on time and content of last meal. Glucose of more than 200 mg/dL in a nonstressed, ambulatory subject supports the diagnosis of Diabetes Mellitus. Result Comment: [place] [facility] Glucose Reference Range is dependent on time and content of last meal. Glucose of more than 200 mg/dL in a nonstressed, ambulatory subject supports the diagnosis of Diabetes Mellitus. ADA recommended reference range Performed By: #### B MP #### [address] Hematocrit [Volume Fraction] of Blood by Automated countOrdered By: Jeevan Sanchez on 09-02-2023 Hematocrit (Bld) [Volume fraction] 35.3 % Normal 34.0-46.4 [facility] Comment on above: Performed By: #### B MP #### [address] Hemoglobin [Mass/volume] in BloodOrdered By: Jeevan Sanchez on 09-02-2023 Hemoglobin (Bld) [Mass/Vol] 12.5 g/dL Normal 11.8-15.4 [facility] Comment on above: Performed By: #### B MP #### [address] Leukocytes [#/volume] correc gatito for nucleated erythrocytes in Blood by Automated counOrdered By: Jeevan Sanchez on 09-02-2023 WBC corrected for nucl RBC Auto (Bld) [#/Vol] 10.5 10*3/uL 3.8-11.6 [facility] Leukocytes [#/volume] in Blo od by Automated countOrdered By: Jeevan Sanchez on 09-02-2023 WBC (Bld) [#/Vol] 10.5 10*3/uL Normal 3.8-11.6 [facility] Comment on above: Performed By: #### B MP #### [address] [address] [place] Lymphocytes [#/volume] in Bl ood by Automated countOrdered By: Jeevan Sanchez on 09-02-2023 Lymphocytes (Bld) [#/Vol] 1.5 10*3/uL Normal 1.00-4.8 [facility] Comment on above: Performed By: #### B MP #### [address] Lymphocytes/100 leukocytes i n Blood by Automated countOrdered By: Jeevan Sanchez on 09-02-2023 Lymphocytes/100 WBC (Bld) 14.7 % Normal . [facility] Comment on above: Performed By: #### B MP #### [address] MCH [Entitic mass] by Automa gatito countOrdered By: Jeevan Sanchez on 09-02-2023 MCH (RBC) [Entitic mass] 30.5 pg Normal 24.7-34.3 [facility] Comment on above: Performed By: #### B MP #### [address] MCHC Auto (RBC) [Mass/Vol]Or dered By: Jeevan Sanchez on 09-02-2023 MCHC (RBC) [Mass/Vol] 35.3 g/dL High 32.0-35.0 [facility] MCV [Entitic volume] by Auto mated countOrdered By: Jeevan Sanchez on 09-02-2023 MCV (RBC) [Entitic vol] 86.4 fL Normal 80-100 [facility] Comment on above: Performed By: #### B MP #### [address] Neutrophils [#/volume] in Bl ood by Automated countOrdered By: Jeevan Sanchez on 09-02-2023 Neutrophils (Bld) [#/Vol] 8.2 10*3/uL High 1.8-7.7 [facility] Comment on above: Performed By: #### B MP #### [address] No Panel InformationOrdered By: Jeevan Sanchez on 09-02-2023 Estimated GFR (CKD-EPI) > 60.0 mL/Min [facility] Creatinine Clearance (Chem 62.04 [facility] Nucleated erythrocytes [Pres ence] in Blood by Automated countOrdered By: Jeevan Sanchez on 09-02-2023 Nucleated RBC Auto Ql (Bld) 0.1 /100{WBC} 0-0.5 [facility] Platelet mean volume [Entiti c volume] in Blood by Automated countOrdered By: Jeevan Sanchez on 09-02-2023 Platelet mean volume (Bld) [Entitic vol] 7.0 fL Normal 6.3-10.7 [facility] Comment on above: Performed By: #### B MP #### [address] Platelets [#/volume] in Bloo d by Automated countOrdered By: Jeevan Sanchez on 09-02-2023 Platelets (Bld) [#/Vol] 188 10*3/uL Normal 150-450 [facility] Comment on above: Performed By: #### B MP #### [address] Potassium [Moles/volume] in Serum or PlasmaOrdered By: Jeevan Sanchez on 09-02-2023 Potassium [Moles/Vol] 3.9 mmol/L Normal 3.5-5.1 [facility] Comment on above: Performed By: #### B MP #### [facility] [address] Serum or plasma anion gap de terminationOrdered By: Jeevan Sanchez on 09-02-2023 Anion gap [Moles/Vol] 8.4 mmol/L Normal 6.0-15.0 [facility] Comment on above: Performed By: #### B MP #### [address] Sodium [Moles/volume] in Ser um or PlasmaOrdered By: Jeevan Sanchez on 09-02-2023 Sodium [Moles/Vol] 139 mmol/L Normal 136-145 [facility] Comment on above: Performed By: #### B MP #### [address] Urea nitrogen [Mass/volume] in Serum or PlasmaOrdered By: Jeevan Sanchez on 09-02-2023 Urea nitrogen [Mass/Vol] 18 mg/dL Normal 7-25 [facility] Comment on above: Performed By: #### B MP #### [place] [address] [place] ABO/Rh Retypeon 09-01-2023 ABO/RH Recheck Result Negative Normal [facility] Comment on above: Result Comment: PERF ORMED BY: [place] [id number] PATHOLOGIST CONTRACT TECHNICAL WRITER CAMILO SEBASTIAN M.D. Basic Metabolic Panelon 08-11 Anion gap [Moles/Vol] Not performed Normal 6.0-15.0 [facility] Comment on above: Performed By: #### B MP #### [address] Calcium [Mass/Vol] 8.2 mg/dL Low 8.6-10.3 [facility] Comment on above: Performed By: #### B MP #### [address] Chloride [Moles/Vol] 108 mmol/L High 98-107 [facility] Comment on above: Performed By: #### B MP #### [address] CO2 [Moles/Vol] 22.5 mmol/L Normal 21.0-31.0 [facility] Comment on above: Performed By: #### B MP #### [address] Creatinine [Mass/Vol] 0.81 mg/dL Normal 0.60-1.20 [facility] Comment on above: Performed By: #### B MP #### [place] [address] [place] Creatinine Clr Calc Pharmacy 58.96 Normal [facility] Comment on above: Result Comment: PERF ORMED BY: [place] [id number] PATHOLOGIST CONTRACT TECHNICAL WRITER CAMILO SEBASTIAN M.D. Performed By: #### B MP #### [address] GFR/1.73 sq M.predicted MDRD (S/P/Bld) [Vol rate/Area] mL/min/{1.73_m2} Normal [facility] Comment on above: Performed By: #### B MP #### [address] Glucose [Mass/Vol] 149 mg/dL High 70-100 [facility] Comment on above: Result Comment: [facility] Glucose Reference Range is dependent on time and content of last meal. Glucose of more than 200 mg/dL in a nonstressed, ambulatory subject supports the diagnosis of Diabetes Mellitus. ADA recommended reference range Performed By: #### B MP #### [address] Potassium Normal 3.5-5.1 [facility] Comment on above: Result Comment: Spec imen hemolyzed, redraw requested Performed By: #### B MP #### [address] Sodium Normal 136-145 [facility] Comment on above: Result Comment: Spec imen hemolyzed, redraw requested Performed By: #### B MP #### [address] Urea nitrogen [Mass/Vol] 16 mg/dL Normal 7-25 [facility] Comment on above: Performed By: #### B MP #### [address] Sebastian 09-01-2023 L Specimen: [id number] Received: 09/01/231248 Status: RIAN Sheridan Num: [id number] Spec Type: Surgical Subm Dr: Jeevan Sanchez MD Tissues: A Joint/Knee (RT KNEE BONE AND TISSUE) Procedures: HE/2, Gross/Micro L4, Decalcification Age/ Patient Sex Location Account Attending Physician Nadia Almeida 77/F [place] [id number] Jeevan Sanchez MD SPEC NUM: [id number] RECD: 09/01/23 STATUS: RIAN SHERIDAN NUM: [id number] BENI: 09/01/23- SUBM DR: Jeevan Sanchez MD ENTERED: 09/01/23 [facility] DR: SPEC TYPE: Surgical DEPT: [...] bone matrix. A gross photo is included. Motor Equipment Commanding Officer sections are submitted in A1 (bone following decalcification)-A2 (soft tissue). Specimen: [id number] Received: 09/01/23 Status: RIAN Delacruzodalys Num: [id number] Spec Type: Surgical Subm Dr: Jeevan Sanchez MD Tissues: A Joint/Knee (RT KNEE BONE AND TISSUE) Procedures: HE/2, Gross/Micro L4, Decalcification Patient: Nadia Almeida [id number] (Continued) Specimen: [id number] Received: 09/01/23 (Continued) Signed (signature on file) Ramy De La Cruz Jr., MD 09/03/23 1055 Specimen: [id number] Received: 09/01/23 Status: RIAN Sheridan Num: [id number] Spec Type: Surgical Subm Dr: Jeevan Sanchez MD Tissues: A Joint/Knee (RT KNEE BONE AND TISSUE) Procedures: HE/2, Gross/Micro L4, Decalcification Patient: Nadia Almeida [id number] (Continued) Specimen: [id number] Received: 09/01/23 (Continued) CPT Codes 61768, 11568 BONE AND TISSUE Specimen: [id number] Received: 09/01/23 Status: RIAN Sheridan Num: [id number] Spec Type: Surgical Subm Dr: Jeevan Sanchez MD Tissues: A Joint/Knee (RT KNEE BONE AND TISSUE) Procedures: HE/2, Gross/Micro L4, Decalcification Patient: Nadia Almeida [id number] (Continued) Signed (signature on file) Ramy De La Cruz Jr., MD 09/03/23 1055 Normal [facility] Redraw Potassiumon 4 Potassium [Moles/Vol] 4.2 mmol/L Normal 3.5-5.1 [facility] Comment on above: Result Comment: PERF ORMED BY: [place] [id number] PATHOLOGIST CONTRACT TECHNICAL WRITER CAMILO SEBASTIAN M.D. Performed By: #### R STEPAN K, REDRAW NA #### [address] Redraw Sodiumon 09-01-2023 Sodium [Moles/Vol] 139 mmol/L Normal 136-145 [facility] Comment on above: Performed By: #### R STEPAN K, REDRAW NA #### [address] XR knee RT 2Von 09-01-2023 XR knee RT 2V [facility] [place] [place] [address] XRay Report Signed Patient: Nadia Almeida MR#: [id number] : 1945 Acct:[id number] Age/Sex: 77 / F ADM Date: 09/01/23 Loc: [place] Room: Type: [facility] Attending Dr: Jeevan Sanchez II, MD [...] COMPLICATION. Impression dictated by: Vinnie Anand Jr., D.OSommer09/01/2023 1:45 PM Dictation Location: [facility]-15 Transcribed By: [facility] 09/01/23 1345 Dictated By: Vinnie Anand Jr DO 09/01/23 1345 Signed By: 09/01/23 1345 Normal [facility] XR tibia fibula RT 2V*on XR tibia fibula RT 2V* [facility] [address] [place] [address] XRay Report Signed Patient: Nadia Almeida MR#: [id number] : 1945 Acct:[id number] Age/Sex: 77 / F ADM Date: 08/21/23 [place] [facility] [place]: Type: [facility] Attending Dr: Jeevan Sanchez II, MD Copies to: Jeevan Sanchez MD Ordering Provider: Jeevan Sanchez MD Date of Service: 08/21/23 XR/XR femur RT 2V*: M17.11 - Unilateral primary osteoarthritis, right knee ([id number]) XR/XR tibia fibula RT 2V*: M17.11 - [...] Jennifer Jon M.D.08/21/2023 4:44 PM Dictation Location: [place] [address] Transcribed By: [facility] 08/21/231643 Dictated By: Jennifer Jon MD 08/21/231641 Signed By: 08/21/231643 Normal [facility] Automated basophil %Ordered By: Jeevan Sanchez on 08-18-2023 Basophils/100 WBC (Bld) 0.6 % Normal . [facility] Comment on above: Performed By: #### B MP #### [address] Automated basophil countOrde red By: Jeevan Sanchez on 08-18-2023 Basophils (Bld) [#/Vol] 0.0 10*3/uL Normal 0.0-0.2 [facility] Comment on above: Result Comment: PERF ORMED BY: [place] [id number] PATHOLOGIST CONTRACT TECHNICAL WRITER CAMILO SEBASTIAN M.D. Performed By: #### B MP #### [address] Automated blood monocyte cou ntOrdered By: Jeevan Sanchez on 08-18-2023 Monocytes (Bld) [#/Vol] 0.4 10*3/uL Normal 0.0-0.8 [facility] Comment on above: Performed By: #### B MP #### [address] Automated eosinophil %Ordere d By: Jeevan Sanchez on 08-18-2023 Eosinophils/100 WBC (Bld) 2.9 % Normal . [facility] Comment on above: Performed By: #### B MP #### [place] [id number] [place] Automated eosinophil countOr dered By: Jeevan Sanchez on 08-18-2023 Eosinophils (Bld) [#/Vol] 0.2 10*3/uL Normal 0.0-0.45 [facility] Comment on above: Performed By: #### B MP #### [facility] [address] Automated monocyte %Ordered By: Jeevan Sanchez on 08-18-2023 Monocytes/100 WBC (Bld) 5.8 % Normal . [facility] Comment on above: Performed By: #### B MP #### [address] Automated neutrophil %Ordere d By: Jeevan Sanchez on 08-18-2023 Neutrophils/100 WBC (Bld) 59.6 % Normal . [facility] Comment on above: Performed By: #### B MP #### [address] Bacteria [Presence] in Urine by AutomatedOrdered By: Jeevan Sanchez on 08-18-2023 Bacteria Auto Ql (U) 4+ [HPF] High None Seen [facility] Basic Metabolic Panelon 07 GFR/1.73 sq M.predicted MDRD (S/P/Bld) [Vol rate/Area] mL/min/{1.73_m2} Normal [facility] Comment on above: Performed By: #### B MP #### [address] Bilirubin Test strip Ql (U)O rdered By: Jeevan Sanchez on 08-18-2023 Bilirubin Ql (U) Negative Negative [facility] Calcium [Mass/volume] in Ser um or PlasmaOrdered By: Jeevan Sanchez on 08-18-2023 Calcium [Mass/Vol] 9.1 mg/dL Normal 8.6-10.3 [facility] Comment on above: Result Comment: PERF ORMED BY: [place] [id number] PATHOLOGIST CONTRACT TECHNICAL WRITER CAMILO SEBASTIAN M.D. Performed By: #### B MP #### [address] Carbon dioxide, total [Moles /volume] in Serum or PlasmaOrdered By: Jeevan Sanchez on 08-18-2023 CO2 [Moles/Vol] 31.6 mmol/L High 21.0-31.0 [facility] Comment on above: Performed By: #### B MP #### [address] Chloride [Moles/volume] in S liudmila or PlasmaOrdered By: Jeevan Sanchez on 08-18-2023 Chloride [Moles/Vol] 105 mmol/L Normal 98-107 [facility] Comment on above: Performed By: #### B MP #### [address] Color of Urine by AutoOrdere d By: Jeevan Sanchez on 08-18-2023 Color (U) Yellow Normal Yellow [facility] Comment on above: Order Comment: Name Collection Type:: Clean-Voided Midstream Performed By: #### R EDRAW K, REDRAW NA #### [address] Complete Blood Count Auto Di ffon 08-18-2023 Mean Corpuscular HGB Conc 34.6 g/dL Normal 32.0-35.0 [facility] Comment on above: Performed By: #### B MP #### [address] NRBC% 0.1 /100{WBC} Normal 0-0.5 [facility] Comment on above: Performed By: #### B MP #### [place] [address] [place] Creatinine [Mass/volume] in Serum or PlasmaOrdered By: Jeevan Sanchez on 08-18-2023 Creatinine [Mass/Vol] 0.86 mg/dL Normal 0.60-1.20 [facility] Comment on above: Performed By: #### B MP #### [place] [address] [place] Dipstick and Microscopicon 0 08-18-2023 Bacteria,Urine 4+ High None Seen [facility] Comment on above: Order Comment: Name Collection Type:: Clean-Voided Midstream Performed By: #### R EDRAW K, REDRAW NA #### [facility] [address] [place] [address] [place] Bilirubin,Urine Negative Normal Negative [facility] Comment on above: Order Comment: Name Collection Type:: Clean-Voided Midstream Performed By: #### R EDRAW K, REDRAW NA #### [facility] [address] [place] [address] [place] Glucose Ql (U) Normal Normal Normal [facility] Comment on above: Order Comment: Name Collection Type:: Clean-Voided Midstream Performed By: #### R EDRAW K, REDRAW NA #### [facility] [address] [place] [address] [place] Hyaline Casts,Urine None Normal 0-8 [facility] Comment on above: Order Comment: Name Collection Type:: Clean-Voided Midstream Performed By: #### R EDRAW K, REDRAW NA #### [facility] [address] [place] [address] [place] Mucus,Urine Rare Normal [facility] Comment on above: Order Comment: Name Collection Type:: Clean-Voided Midstream Result Comment: PERF ORMED BY: [address] [place] [address] PATHOLOGIST CONTRACT TECHNICAL WRITER CAMILO SEBASTIAN M.D. Performed By: #### R EDRAW K, REDRAW NA #### [facility] [address] [place] [address] [place] Nitrite,Urine Negative Normal Negative [facility] Comment on above: Order Comment: Name Collection Type:: Clean-Voided Midstream Performed By: #### R EDRAW K, REDRAW NA #### [facility] [address] [place] [address] [place] Occult Blood,Urine Negative Normal Negative [facility] Comment on above: Order Comment: Name Collection Type:: Clean-Voided Midstream Result Comment: PERF ORMED BY: [place] [id number] PATHOLOGIST CONTRACT TECHNICAL WRITER CAMILO SEBASTIAN M.D. Performed By: #### R EDRAW K, REDRAW NA #### [place] [address] [place] Protein,Urine Negative Normal Negative [facility] Comment on above: Order Comment: Name Collection Type:: Clean-Voided Midstream Performed By: #### R EDRAW K, REDRAW NA #### [place] [address] [place] RBC,Urine 1-2 Normal 0-4 [facility] Comment on above: Order Comment: Name Collection Type:: Clean-Voided Midstream Performed By: #### R EDRAW K, REDRAW NA #### [place] [address] [place] Specificy [place],Urine 1.022 Normal 1.001-1.03 0 [facility] Comment on above: Order Comment: Name Collection Type:: Clean-Voided Midstream Performed By: #### R EDRAW K, REDRAW NA #### [address] Squamous Epithelial Cell,Urine 1-2 Normal 0-2 [facility] Comment on above: Order Comment: Name Collection Type:: Clean-Voided Midstream Performed By: #### R EDRAW K, REDRAW NA #### [place] [address] [place] Urobilinogen,Urine Normal Normal Normal [facility] Comment on above: Order Comment: Name Collection Type:: Clean-Voided Midstream Performed By: #### R EDRAW K, REDRAW NA #### [place] [address] [place] WBC,Urine 5-9 High 0-4 [facility] Comment on above: Order Comment: Name Collection Type:: Clean-Voided Midstream Performed By: #### R EDRAW K, REDRAW NA #### [facility] [address] [place] [address] ECG 12 lead ECGon 08-18-2023 ECG 12 lead ECG [facility] [place] [address] [place] [address] Electrocardiograph Report Signed Patient: Nadia Almeida MR#: [id number] : 1945 Acct:[id number] Age/Sex: 77 / F ADM Date: 08/18/23 Loc: Room: Type: [facility] Attending Dr: Jeevan Sanchez II, MD Ordering [...] previous ECGs available Confirmed by SOREN ALVARADO [facility], NERY ([id number]) on 08/18/2023 12:04:10 PM Referred By: DANIEL Electronically Signed By:NERY DOTY MD [facility] Transcribed By: MUS Signed By Nery Doty MD, [facility] 08/18/23 1204 Normal [facility] Epithelial cells.squamous [# /area] in Urine sediment by Automated countOrdered By: Jeevan Sanchez on 08-18-2023 Epithelial cells.squamous Auto (Urine sed) [#/Area] 1-2 [HPF] 0-2 [facility] Erythrocyte distribution wid th [Ratio] by Automated countOrdered By: Jeevan Sanchez on 08-18-2023 Erythrocyte distribution width (RBC) [Ratio] 13.9 % Normal 11.9-15.3 [facility] Comment on above: Performed By: #### B MP #### [facility] [address] [place] [address] Erythrocytes [#/area] in Uri ne sediment by Automated countOrdered By: Jeevan Sanchez on 08-18-2023 RBC Auto (Urine sed) [#/Area] 1-2 [HPF] 0-4 [facility] Erythrocytes [#/volume] in B lood by Automated countOrdered By: Jevean Sanchez on 08-18-2023 RBC (Bld) [#/Vol] 4.50 10*6/uL Normal 3.60-5.00 [facility] Comment on above: Performed By: #### B MP #### [facility] [address] [place] [address] Fructosamineon 08-18-2023 Fructosamine 244 umol/L Normal 0-[address] [facility] Comment on above: Result Comment: Publ ished reference interval for apparently healthy subjects between age 20 and 60 is 205 - 285 umol/L and in a poorly controlled diabetic population is 228 - 563 umol/L with a mean of 396 umol/L. Performed at: [facility] [address] [id number] Yard Worker: Kendell Teague PhD, Phone: [phone] PERFORMED BY: [place] [id number] PATHOLOGIST CONTRACT TECHNICAL WRITER CAMILO SEBASTIAN M.D. Performed By: #### B MP #### [address] Fructosamine [Moles/volume] in Serum or PlasmaOrdered By: Jeevan Sanchez on 08-18-2023 Fructosamine [Moles/Vol] 244 umol/L 0-285 [facility] Comment on above: Published reference interval for apparently healthysubjects between age 20 and 60 is 205 - 285 umol/L and in apoorly controlled diabetic population is 228 - 563 umol/Lwith a mean of 396 umol/L.Performed at: [facility] [address] [id number] Director: Kendell Teague PhD, Phone: [phone] Glucose [Mass/volume] in Ser um or PlasmaOrdered By: Jeevan Sanchez on 08-18-2023 Glucose [Mass/Vol] 109 mg/dL High 70-100 [facility] Comment on above: ADA recommended refe rence rangeRandom Glucose Reference Range is dependent on time and content of last meal. Glucose of more than 200 mg/dL in a nonstressed, ambulatory subject supports the diagnosis of Diabetes Mellitus. Result Comment: [place] om Glucose Reference Range is dependent on time and content of last meal. Glucose of more than 200 mg/dL in a nonstressed, ambulatory subject supports the diagnosis of Diabetes Mellitus. ADA recommended reference range Performed By: #### B MP #### [facility] [address] [place] [address] [place] Glucose [Mass/volume] in Uri ne by Test stripOrdered By: Jeevan Sanchez on 08-18-2023 Glucose Test strip (U) [Mass/Vol] Normal mg/dL Normal [facility] Hematocrit [Volume Fraction] of Blood by Automated countOrdered By: Jeevan Sanchez on 08-18-2023 Hematocrit (Bld) [Volume fraction] 39.4 % Normal 34.0-46.4 [facility] Comment on above: Performed By: #### B MP #### [address] Hemoglobin Test strip Ql (U) Ordered By: Jeevan Sanchez on 08-18-2023 Hemoglobin Ql (U) Negative Negative [facility] Hemoglobin [Mass/volume] in BloodOrdered By: Jeevan Sanchez on 08-18-2023 Hemoglobin (Bld) [Mass/Vol] 13.6 g/dL Normal 11.8-15.4 [facility] Comment on above: Performed By: #### B MP #### [place] [address] [place] Hyaline casts [#/area] in Ur ine sediment by Automated countOrdered By: Jeevan Sanchez on 08-18-2023 Hyaline casts Auto (Urine sed) [#/Area] None [LPF] 0-8 [facility] Ketones [Presence] in Urine by Test stripOrdered By: Jeevan Sanchez on 08-18-2023 Ketones Ql (U) Negative Normal Negative [facility] Comment on above: Order Comment: Name Collection Type:: Clean-Voided Midstream Performed By: #### R STEPAN Zhang REDRAW NA #### [facility] [address] [place] [address] [place] Leukocyte esterase [Presence ] in Urine by Test stripOrdered By: Jeevan Sanchez on 08-18-2023 Leukocyte esterase Test strip Ql (U) 1+ High Negative [facility] Comment on above: Order Comment: Name Collection Type:: Clean-Voided Midstream Performed By: #### R STEPAN Zhang REDRAW NA #### [facility] [address] [place] [address] [place] Leukocytes [#/area] in Urine sediment by Automated countOrdered By: Jeevan Sanchez on 08-18-2023 WBC Auto (Urine sed) [#/Area] 5-9 [HPF] High 0-4 [facility] Leukocytes [#/volume] correc gatito for nucleated erythrocytes in Blood by Automated counOrdered By: Jeevan Sanchez on 08-18-2023 WBC corrected for nucl RBC Auto (Bld) [#/Vol] 7.6 10*3/uL 3.8-11.6 [facility] Leukocytes [#/volume] in Blo od by Automated countOrdered By: Jeevan Sanchez on 08-18-2023 WBC (Bld) [#/Vol] 7.6 10*3/uL Normal 3.8-11.6 [facility] Comment on above: Performed By: #### B MP #### [place] [address] [place] Lymphocytes [#/volume] in Bl ood by Automated countOrdered By: Jeevan Sanchez on 08-18-2023 Lymphocytes (Bld) [#/Vol] 2.4 10*3/uL Normal 1.00-4.8 [facility] Comment on above: Performed By: #### B MP #### [place] [address] [place] Lymphocytes/100 leukocytes i n Blood by Automated countOrdered By: Jeevan Sanchez on 08-18-2023 Lymphocytes/100 WBC (Bld) 31.1 % Normal . [facility] Comment on above: Performed By: #### B MP #### [address] MCH [Entitic mass] by Automa gatito countOrdered By: Jeevan Sanchez on 08-18-2023 MCH (RBC) [Entitic mass] 30.3 pg Normal 24.7-34.3 [facility] Comment on above: Performed By: #### B MP #### [address] MCHC Auto (RBC) [Mass/Vol]Or dered By: Jeevan Sanchez on 08-18-2023 MCHC (RBC) [Mass/Vol] 34.6 g/dL 32.0-35.0 [facility] MCV [Entitic volume] by Auto mated countOrdered By: Jeevan Sanchez on 08-18-2023 MCV (RBC) [Entitic vol] 87.6 fL Normal 80-100 [facility] Comment on above: Performed By: #### B MP #### [address] Mucus [Presence] in Urine by AutomatedOrdered By: Jeevan Sanchez on 08-18-2023 Mucus Auto Ql (U) Rare [LPF] [facility] Neutrophils [#/volume] in Bl ood by Automated countOrdered By: Jeevan Sanchez on 08-18-2023 Neutrophils (Bld) [#/Vol] 4.6 10*3/uL Normal 1.8-7.7 [facility] Comment on above: Performed By: #### B MP #### [address] Nitrite Test strip Ql (U)Ord ered By: Jeevan Sanchez on 08-18-2023 Nitrite Ql (U) Negative Negative [facility] No Panel InformationOrdered By: Jeevan Sanchez on 08-18-2023 Estimated GFR (CKD-EPI) > 60.0 mL/Min [facility] Creatinine Clearance (Chem N/A [facility] Nucleated erythrocytes [Pres ence] in Blood by Automated countOrdered By: Jeevan Sanchez on 08-18-2023 Nucleated RBC Auto Ql (Bld) 0.1 /100{WBC} 0-0.5 [facility] PST Type and Screenon 2023 ABO and Rh group Nom (Bld) Blood group B Rh(D) negative Normal [facility] Comment on above: Order Comment: Date of Surgery: [id number] Result Comment: PERF ORMED BY: [place] [id number] PATHOLOGIST CONTRACT TECHNICAL WRITER CAMILO SEBASTIAN M.D. Platelet mean volume [Entiti c volume] in Blood by Automated countOrdered By: Jeevan Sanchez on 08-18-2023 Platelet mean volume (Bld) [Entitic vol] 7.0 fL Normal 6.3-10.7 [facility] Comment on above: Performed By: #### B MP #### [address] Platelets [#/volume] in Bloo d by Automated countOrdered By: Jeevan Sanchez on 08-18-2023 Platelets (Bld) [#/Vol] 202 10*3/uL Normal 150-450 [facility] Comment on above: Performed By: #### B MP #### [place] [address] [place] Potassium [Moles/volume] in Serum or PlasmaOrdered By: Jeevan Sanchez on 08-18-2023 Potassium [Moles/Vol] 4.1 mmol/L Normal 3.5-5.1 [facility] Comment on above: Performed By: #### B MP #### [address] Protein Test strip (U) [Mass /Vol]Ordered By: Jeevan Sanchez on 08-18-2023 Protein (U) [Mass/Vol] Negative Negative [facility] Serum or plasma anion gap de terminationOrdered By: Jeevan Sanchez on 08-18-2023 Anion gap [Moles/Vol] 9.5 mmol/L Normal 6.0-15.0 [facility] Comment on above: Performed By: #### B MP #### [address] Sodium [Moles/volume] in Ser um or PlasmaOrdered By: Jeevan Sanchez on 08-18-2023 Sodium [Moles/Vol] 142 mmol/L Normal 136-145 [facility] Comment on above: Performed By: #### B MP #### [address] Specific gravity Test strip (U) [Rel density]Ordered By: Jeevan Sanchez on 08-18-2023 Specific gravity (U) [Rel density] 1.022 1.001-1.03 0 [facility] Urea nitrogen [Mass/volume] in Serum or PlasmaOrdered By: Jeevan Sanchez on 08-18-2023 Urea nitrogen [Mass/Vol] 19 mg/dL Normal 7-25 [facility] Comment on above: Performed By: #### B MP #### [address] Urine Cultureon 08-18-2023 Bacteria identified Cx Nom (U) ORGANISM: Escherichia coli (O:ESCCOL) Fannin Count 50,000 Aerobic FRANK Charge (NMIC56) SUSCEPTIBILITY [...] RESISTANT TO ALL B-LACTAM DRUGS. PERFORMED BY: [place] [id number] PATHOLOGIST CONTRACT TECHNICAL WRITER CAMILO SEBASTIAN M.D. Normal [facility] Comment on above: Performed By: #### R STEPAN Zhang REDRAW NA #### [address] Urine appearanceOrdered By: Jeevan Sanchez on 08-18-2023 Appearance (U) Clear Normal Clear [facility] Comment on above: Order Comment: Name Collection Type:: Clean-Voided Midstream Performed By: #### R STEPAN Zhang REDRAW NA #### [address] Urine culture routineOrdered By: Jeevan Sanchez on 08-18-2023 Bacteria identified Cx Nom (U) Escherichia coli Abnormal [facility] Urobilinogen Test strip (U) [Mass/Vol]Ordered By: Jeevan Sanchez on 08-18-2023 Urobilinogen (U) [Mass/Vol] Normal mg/dL Normal [facility] pH of Urine by Test stripOrd ered By: Jeevan Sanchez on 08-18-2023 pH (U) 5.0 [pH] Normal 5.0-9.0 [facility] Comment on above: Order Comment: Name Collection Type:: Clean-Voided Midstream Performed By: #### R STEPAN Zhang REDRAW NA #### [address] A1C with Estimated Average G luon 07-17-2023 Glucose [Mass/Vol] 97 mg/dL Normal [facility] Comment on above: Result Comment: PERF ORMED BY: [place] [id number] PATHOLOGIST CONTRACT TECHNICAL WRITER CAMILO SEBASTIAN M.D. Performed By: #### C UMRSA, A1C WTH eA, ALB, HGB, [id number] #### [facility] [address] [place] [address] #### NICOTINE #### [facility] , Albumin Levelon 07-17-2023 Albumin [Mass/Vol] 4.2 g/dL Normal 3.5-5.7 [facility] Comment on above: Performed By: #### C UMRSA, A1C WTH eA, ALB, HGB, [id number] #### [facility] [address] [place] [address] #### NICOTINE #### [facility] , Albumin [Mass/volume] in Ser um or Plasma by Bromocresol green (BCG) dye binding methoOrdered By: Jeevan Sanchez on 07-17-2023 Albumin BCG dye [Mass/Vol] 4.2 g/dL 3.5-5.7 [facility] Cotinine [Mass/volume] in Se rum or PlasmaOrdered By: Jeevan Sanchez on 07-17-2023 Cotinine [Mass/Vol] <1.0 ng/mL . [facility] Comment on above: This test was develo ped and its performance characteristicsdetermined by [facility]. It has not been cleared orapproved by the Food and Drug Administration.Cotinine levels greater than 20.0 are consistent with theuse of tobacco or tobacco cessation products.Performed at: [address] [id number] Director: Evette Bryan MD, Phone: [phone] Glucose mean value [Mass/vol ume] in Blood Estimated from glycated hemoglobinOrdered By: Jeevan Sanchez on 07-17-2023 Average glucose Estimated from glycated hemoglobin (Bld) [Mass/Vol] 97 mg/dL [facility] Hemoglobin A1c percentageOrd ered By: Jeevan Sanchez on 07-17-2023 HbA1c (Bld) [Mass fraction] 5.0 % Normal 4.3-5.6 [facility] Comment on above: Increased risk for d iabetes: 5.7 - 6.4diabetes: >6.4glycemic control for adults with diabetes: <7.0 Result Comment: Incr eased risk for diabetes: 5.7 - 6.4 diabetes: >6.4 glycemic control for adults with diabetes: <7.0 Performed By: #### C UMRSA, A1C WTH eA, ALB, HGB, [id number] #### [facility] [address] [place] [address] [place] #### NICOTINE #### [facility] , Hemoglobin [Mass/volume] in BloodOrdered By: Jeevan Sanchez on 07-17-2023 Hemoglobin (Bld) [Mass/Vol] 13.5 g/dL Normal 11.8-15.4 [facility] Comment on above: Result Comment: PERF ORMED BY: [place] [id number] PATHOLOGIST CONTRACT TECHNICAL WRITER CAMILO SEBASTIAN M.D. Performed By: #### C UMRSA, A1C WTH eA, ALB, HGB, [id number] #### [address] #### NICOTINE #### [facility] , MRSA Cultureon 07-17-2023 MRSA Culture No MRSA Isolated 2 D ays PERFORMED BY: [place] [id number] PATHOLOGIST CONTRACT TECHNICAL WRITER CAMILO SEBASTIAN M.D. Normal [facility] Comment on above: Performed By: #### C UMRSA, A1C WTH eA, ALB, HGB, [id number] #### [facility] [address] [place] [address] [place] #### NICOTINE #### [facility] , Nicotine [Mass/volume] in Se rum or PlasmaOrdered By: Jeevan Sanchez on 07-17-2023 Nicotine [Mass/Vol] <1.0 ng/mL . [facility] Comment on above: This test was develo ped and its performance characteristicsdetermined by [facility]. It has not been cleared orapproved by the Food and Drug Administration.Nicotine levels greater than 2.0 are consistent with theuse of tobacco or tobacco cessation products. Nicotine/Cotinine Bloodon Cotinine, Blood <1.0 Normal . [facility] Comment on above: Result Comment: This test was developed and its performance characteristics determined by [facility]. It has not been cleared or approved by the Food and Drug Administration. Cotinine levels greater than 20.0 are consistent with the use of tobacco or tobacco cessation products. Performed at: [facility] [address] [id number] Yard Worker: Evette Bryan MD, Phone: [phone] PERFORMED BY: [place] [id number] PATHOLOGIST CONTRACT TECHNICAL WRITER CAMILO SEBASTIAN M.D. Performed By: #### B MP #### [address] Nicotine, Blood <1.0 Normal . [facility] Comment on above: Result Comment: This test was developed and its performance characteristics determined by [facility]. It has not been cleared or approved by the Food and Drug Administration. Nicotine levels greater than 2.0 are consistent with the use of tobacco or tobacco cessation products. Performed By: #### B MP #### [place] [id number] [facility] Vitamin D 25 Hydroxy Totalon 07-17-2023 Vitamin D 25 Hydroxy Total 75.8 ng/mL Normal 30-100 [facility] Comment on above: Result Comment: MALGORZATA MIN D STATUS 25(OH)VITAMIN D RANGE (ng/mL) Deficient <20 Insufficient 20 to <30 Sufficient 30 to 100 Reference: Judy MF,Roberto NC, Kae CELESTE, et al. Evaluation,treatment, and prevention of vitamin D deficiency; an Endocrine Society clinical practice guideline. JCEM. 2010; 96(7):1911-30. PERFORMED BY: [place] [id number] PATHOLOGIST CONTRACT TECHNICAL WRITER JIANLAN SUN M.D. Performed By: #### C UMRSA, A1C WTH eA, ALB, HGB, [id number] #### [facility] [address] #### NICOTINE #### [facility] , Vitamin D+Metabolites [Mass/ volume] in Serum or PlasmaOrdered By: Jeevan Sanchez on 07-17-2023 Vitamin D+Metabolites [Mass/Vol] 75.8 ng/mL 30-100 [facility] Comment on above: VITAMIN D STATUS [...] 2 Days [facility] XR hip LT min 2V(w/wo pelvis )*on 06-26-2023 XR hip LT min 2V(w/wo pelvis)* [facility] [address] [place] [address] XRay Report Signed Patient: Nadia Almeida MR#: [id number] : 1945 Acct:[id number] Age/Sex: 77 / F ADM Date: 06/26/23 [place] [facility] [place]: Type: [facility] Attending Dr: Jeevan Sanchez II, MD [...] Ashwin Brown M.D.06/26/2023 4:03 PM Dictation Location: [facility]- Transcribed By: [facility] 06/26/23 1603 Dictated By: Ashwin Brown II, MD 06/26/23 160 Signed By: 06/26/23 160 Normal [facility] XR knee RT 4V*on 06-26-2023 XR knee RT 4V* [facility] [address] [place] [address] XRay Report Signed Patient: Nadia Almeida MR#: [id number] : 1945 Acct:[id number] Age/Sex: 77 / F ADM Date: 06/26/23 [place] [facility] [place]: Type: [facility] Attending Dr: Jeevan Sanchez II, MD [...] Max Gates M.D.06/26/2023 4:01 PM Dictation Location: [facility] Transcribed By: [facility] 06/26/23 1601 Dictated By: Max Gates DO 06/26/23 1559 Signed By: 06/26/23 1601 Normal [facility] CNOVSPon 06-10-2022 CNOVSP Visit (SP) Office (Abhijeet DIMAS) -- NADIA ALMEIDA ([id number]) 1945 F Date Time Provider Department 06/10/22 10:30 AM GARRETT BELTRÁN During your visit today, we recorded the following information about you: Temperature Pulse Respiration Blood pressure 97.4 degrees 68/minute 16/minute 133/63 Weight Height 80.7 kg 1.68 m Garrett Beltrán MD 06/16/2022 4:20 PM Signed NAME: Nadia Almeida CLINIC NO.: [id number] DATE OF SERVICE: June 10, 2022 (Benny) Some elements in this clinic note that are critical to medical decision making have been carefully reviewed and included from a prior clinic note dated: June 04, 2021 Referring Provider: Shaw Francois II CC: Right breast cancer ER/NC positive, HER-2/crescencio negative diagnosed May 2011. 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 HER-2/crescencio was negative. [place] lymph nodes were negative. Mastectomy done 05/14/2011 also showed a 0.5 cm grade 2 ER/NC positive HER-2/crescencio negative invasive ductal carcinoma with [...] Take 1 tablet by mouth once daily. Bdnhiemdyrjrp-Halgyuvq-Vxl ein (CENTRUM SILVER) tab Take 1 tablet [...] : DR. GARRETT BELTRÁN M.D. Admission #: [id number] Family : DR SHAW FRANCOIS M.D. Order #: [id number] CLICK HERE TO VIEW EXAM RADIOLOGY REPORT [...] breast cancer at age 38. LOCATION: [facility] BREAST COMPOSITION: Scattered areas fibroglandular density. FINDINGS: [...] MD on 06/03/2022 at 11:55 Normal [facility] COVID-19 Positive/NegativeOr dered By: Naya Weber on 05-21-2021 SARS-CoV-2 (COVID-19) N gene ALBINA+probe Ql (Resp) Negative Negative [facility] Comment on above: Testing for SARS-CoV -2 by RT-PCRThis test was developed and its performance characteristics determined by [employer] ([employer]) and validated at the [facility]. This test has not been FDA [...] C-Reactive Proteinon 022 CRP IV <0.3 Normal [facility] Comment on above: Performed By: #### C BC, CRP, ESR, RF, CMP, URIC #### [facility] [address] [place], [place] [id number] Complete Blood Counton 04-25 Erythrocyte distribution width (RBC) [Ratio] 12.8 % Normal 11.0-15.0 [facility] Comment on above: Performed By: #### C BC, CRP, ESR, RF, CMP, URIC #### [facility] [address] [place], [place] [id number] Hematocrit (Bld) [Volume fraction] 43.7 % Normal 35.0-47.0 [facility] Specialist Comment on above: Performed By: #### C BC, CRP, ESR, RF, CMP, URIC #### [facility] [address] [place], [place] [id number] Hemoglobin (Bld) [Mass/Vol] 14.5 g/dL Normal 11.6-15.5 [facility] Specialist Comment on above: Performed By: #### C BC, CRP, ESR, RF, CMP, URIC #### [facility] [address] [place], [place] [id number] MCH (RBC) [Entitic mass] 29.5 pg Normal 27.0-33.0 [facility] Specialist Comment on above: Performed By: #### C BC, CRP, ESR, RF, CMP, URIC #### [facility] [address] [place], [place] [id number] MCHC (RBC) [Mass/Vol] 33.2 g/dL Normal 32.0-36.0 [facility] Comment on above: Performed By: #### C BC, CRP, ESR, RF, CMP, URIC #### [facility] [address] [place], [place] [id number] MCV (RBC) [Entitic vol] 89 fL Normal 80-100 [facility] Specialist Comment on above: Performed By: #### C BC, CRP, ESR, RF, CMP, URIC #### [facility] [address] [place], [place] [id number] Platelet mean volume (Bld) [Entitic vol] 9.00 fL Normal 7.50-12.50 [facility] Comment on above: Performed By: #### C BC, CRP, ESR, RF, CMP, URIC #### [facility] [address] [place], [place] [id number] Platelets (Bld) [#/Vol] 201 10*3/uL Normal 140-400 [facility] Specialist Comment on above: Performed By: #### C BC, CRP, ESR, RF, CMP, URIC #### [facility] [address] [place], [place] [id number] RBC (Bld) [#/Vol] 4.92 10*6/uL Normal 3.90-5.20 [facility] Comment on above: Performed By: #### C BC, CRP, ESR, RF, CMP, URIC #### [facility] [address] [place], [place] [id number] RDW-SD 41.6 fL Normal 37.0-50.0 [facility] Specialist Comment on above: Performed By: #### C BC, CRP, ESR, RF, CMP, URIC #### [facility] [address] [place], [place] [id number] WBC (Bld) [#/Vol] 7.3 10*3/uL Normal 3.8-11.0 [facility] Comment on above: Performed By: #### C BC, CRP, ESR, RF, CMP, URIC #### [facility] [address] [place], [place] [id number] Comprehensive Met[facility] 04-25-2021 Albumin [Mass/Vol] 4.5 g/dL Normal 3.6-5.1 [facility] Comment on above: Performed By: #### C BC, CRP, ESR, RF, CMP, URIC #### [facility] [address] [place], [place] [id number] Albumin/Globulin [Mass ratio] 2.1 {ratio} Normal 1.0-2.5 [facility] Specialist Comment on above: Performed By: #### C BC, CRP, ESR, RF, CMP, URIC #### [facility] [address] [place], [place] [id number] ALP [Catalytic activity/Vol] 64 U/L Normal 35-119 [facility] Specialist Comment on above: Performed By: #### C BC, CRP, ESR, RF, CMP, URIC #### [facility] [address] [place], [place] [id number] ALT [Catalytic activity/Vol] 12 U/L Normal 6-33 [facility] Comment on above: Result Comment: 01/10 Female reference range changed. Performed By: #### C BC, CRP, ESR, RF, CMP, URIC #### [facility] [address] [place], [place] [id number] Anion gap [Moles/Vol] 17 mmol/L Normal 12-20 [facility] Comment on above: Result Comment: Britta ctive 02/15/2019 reference range changed. Performed By: #### C BC, CRP, ESR, RF, CMP, URIC #### [facility] [address] [place], [place] [id number] AST [Catalytic activity/Vol] 14 U/L Normal 9-34 [facility] Comment on above: Performed By: #### C BC, CRP, ESR, RF, CMP, URIC #### [facility] [address] [place], [place] [id number] Bilirubin [Mass/Vol] 0.67 mg/dL Normal 0.30-1.20 [facility] Comment on above: Performed By: #### C BC, CRP, ESR, RF, CMP, URIC #### [facility] [address] [place], [place] [id number] BUN/CREA 22 Ratio Normal 6-22 [facility] Comment on above: Performed By: #### C BC, CRP, ESR, RF, CMP, URIC #### [facility] [address] [place], [place] [id number] Calcium [Mass/Vol] 9.2 mg/dL Normal 8.6-10.2 [facility] Comment on above: Performed By: #### C BC, CRP, ESR, RF, CMP, URIC #### [facility] [address] [place], [place] [id number] Chloride [Moles/Vol] 104 mmol/L Normal 98-107 [facility] Comment on above: Performed By: #### C BC, CRP, ESR, RF, CMP, URIC #### [facility] [address] [place], [place] [id number] CO2 [Moles/Vol] 24 mmol/L Normal 20-31 [facility] Comment on above: Performed By: #### C BC, CRP, ESR, RF, CMP, URIC #### [facility] [address] [facility] [place] [id number] Creatinine [Mass/Vol] 0.7 mg/dL Normal 0.6-1.4 [facility] Specialist Comment on above: Performed By: #### C BC, CRP, ESR, RF, CMP, URIC #### [facility] [address] [place], [place] [id number] eGFRAA 95 mL/min/1.73m2 Normal >60 [facility] Comment on above: Performed By: #### C BC, CRP, ESR, RF, CMP, URIC #### [facility] [address] [place], [place] [id number] eGFRNAA 79 mL/min/1.73m2 Normal >60 [facility] Comment on above: Performed By: #### C BC, CRP, ESR, RF, CMP, URIC #### [facility] [address] [place], [place] [id number] Globulin (S) [Mass/Vol] 2.1 g/dL Normal 1.9-3.7 [facility] Comment on above: Performed By: #### C BC, CRP, ESR, RF, CMP, URIC #### [facility] [address] [place], [place] [id number] Glucose [Mass/Vol] 98 mg/dL Normal 65-99 [facility] Comment on above: Result Comment: For FASTING Glucose --- ADA reference ranges: Normal 65-99 mg/dl Prediabetes 100-125 Diabetes >/= 126 Performed By: #### C BC, CRP, ESR, RF, CMP, URIC #### [facility] [address] [place], [place] [id number] Potassium [Moles/Vol] 4.2 mmol/L Normal 3.5-5.5 [facility] Comment on above: Performed By: #### C BC, CRP, ESR, RF, CMP, URIC #### [facility] [address] [place], [place] [id number] Protein [Mass/Vol] 6.6 g/dL Normal 6.1-8.1 [facility] Comment on above: Performed By: #### C BC, CRP, ESR, RF, CMP, URIC #### [facility] [address] [place], [place] [id number] Sodium [Moles/Vol] 141 mmol/L Normal 135-146 [facility] [place] [facility] Comment on above: Performed By: #### C BC, CRP, ESR, RF, CMP, URIC #### [facility] [address] [place], [place] [id number] Urea nitrogen [Mass/Vol] 16 mg/dL Normal 7-25 [facility] Comment on above: Performed By: #### C BC, CRP, ESR, RF, CMP, URIC #### [facility] [address] [place], [place] [id number] Q - CARRIE MULTIPLEX W/ REFLEX TO 11 ANTIBODY CASCADEon 04-25-2021 ANACHOICE(R) SCREEN Negative Normal NEGATIVE [facility] Comment on above: Order Comment: [facility] Testing performed at: [email or web address], [facility], [address] [place] [address], [address] [place] [address], [phone], Observatory Director: Joe Hickey MD [facility] Collection Date/Time: [facility] Results Received Date/Time: [facility] Reported Date/Time: Result Comment: A ne gative CARRIE Multiplex, with Reflex to 11 Antibody [place] indicates the absence of detectable antibodies to component analytes consisting of double stranded DNA (dsDNA), chromatin, ribonucleoprotein (REGISTRATION COORDINATOR), Boyd/REGISTRATION COORDINATOR (Sm/REGISTRATION COORDINATOR), Boyd (Sm), SS-A, SS-B, Ruma-1, centromere B, Scl-70 and ribosomal P. A negative result should be interpreted in the context of the clinical and laboratory findings and does not rule out autoimmune disease characterized by other autoantibody specificities such as rheumatoid arthritis, autoimmune hepatitis, primary biliary cirrhosis, autoimmune thyroiditis, Vermillion's disease, pernicious anemia, autoimmune neuropathies, vasculitis, celiac disease, and bullous disease. For additional information, please refer to http://[email or web address].[place]/faq/GJT961 (This link is being provided for informational/ educational purposes only.) Performed By: #### 1 [id number] #### [facility] [address] [place] [address] RBC Sedimentation Rateon ESR (Bld) [Velocity] 7.00 mm/h Normal 0.00-30.00 [facility] Comment on above: Performed By: #### C BC, CRP, ESR, RF, CMP, URIC #### [facility] [address] [place], [place] [id number] Rheumatoid Factoron 04-26-19 22 RF <10 Normal [facility] Comment on above: Performed By: #### C BC, CRP, ESR, RF, CMP, URIC #### [facility] [address] [place], [place] [id number] Uric Acidon 04-25-2021 URIC 4.8 mg/dL Normal 2.5-7.0 [facility] Comment on above: Result Comment: Refe rence range change 12/27/2016. Prior reference range F 2.4-5.7mg/dL. M 3.4-7.0 mg/dL. Performed By: #### C BC, CRP, ESR, RF, CMP, URIC #### [facility] [address] [place], [place] [id number] CNPAna Cristina 10-03-2019 CNPN Telephone (FVPRAD) -- NADIA ALMEIDA ( ) 1945 F Date Time Provider Department 10/03/19 KENNEDY GALAN During your visit today, we recorded the following information about you: Kennedy Galan MD 10/03/2019 1:30 PM Signed Please call the patient and pass on the [employer] message I wrote today to her (in case she does not check my chart). Please send a copy of her CT chest to Dr Beltrán's office with a request to follow-up on the thyroid, kidney and breast abnormalities. Thank you, Kennedy Bruce LPN 10/04/2019 8:[address] Mckeon is with [facility] in [place]. LVM with office triage nurse to have review CT in patients chart. Gave nurse pod extension if any further questions. Allergies As of Date: 10/03/2019 Noted Allergy Reaction SULFA (SULFONAMIDE ANTIBIOTICS) 04/17/2011 2 - Rash 7 - Swelling Date Reviewed: 07/26/2019 Reviewed by: Paty HansonRn) DEBI Lerma - Fully Assessed Reason for [...] 1 tablet by mouth once d* * KOCDCNXCUIDS-LXWRODAB-CXIU IN * Take 1 tablet by mouth once d* Problem List As Of Date 10/03/2019 Noted Resolved Breast cancer, right breast [C50.911] 04/19/2011 Osteopenia [M85.80] 07/27/2013 Encounter Status:Closed by SAMANTHA ZACARIAS LPN on 11/15/[address] [facility] [address] CHEST WO IVCONon 09-28-19 CT CHEST WO IVCON * * *Final Report* * * * * * SEE BOTTOM OF REPORT FOR ADDENDED TEXT * * * DATE OF EXAM: Sep 28 2019 9:28AM [facility] 0541 - CT CHEST WO IVCON [...] can be further evaluated with renal ultrasound. Him Assistant (topogram) images: No additional findings. IMPRESSION: NO [...] in a patient with INSERT MEDICAL REASON. [employer] 2015 * * * * * * * * ADDENDUM #1 * * * * * * * * COMPARISON: Chest x-rays dated 07/02/2019, 04/17/2011; outside left screening mammogram dated 04/05/2019 Tractor Operator: ZAFAR Transcribe Date/Time: Sep 28 2019 10:35A Dictated by : BILLIE EISENBERG MD This examination was interpreted and the report reviewed and electronically signed by: BILLIE EISENBERG MD on Sep 28 2019 9:50AM EST This document has been addended by: BILLIE EISENBERG MD on Sep 28 2019 10:36AM EST [id number] [facility] GI FLUORO CHEST SNIFF TESTon 09-28-2019 GI [...] NO FLUOROSCOPIC EVIDENCE OF RIGHT DIAPHRAGMATIC PARALYSIS. Tractor Operator: ZAFAR Transcribe Date/Time: Sep 28 2019 10:30A Dictated by : BILLIE EISENBERG MD This examination was interpreted and the report reviewed and electronically signed by: BILLIE EISENBERG MD on Sep 28 2019 10:35AM EST [id number] [facility] PROGRESSon 09-28-2019 PROGRESS HNO ID: [id number] Author: [place] () Wall Service: Radiology Author Type: Program Coordinator Type: Progress Notes Filed: 09/28/2019 10:19 AM [...] RT Zee September 28, 2019 10:18 AM [facility] PROGRESS HNO ID: [id number] Author: Cathi Robles (Rt) Service: Radiology Author Type: Program Coordinator Type: Progress Notes Filed: 09/28/2019 9:28 AM [...] RT Lokesh September 28, 2019 9:25 AM [facility] Coding Summary.on 05-09-2017 Coding Summary. CODING DATE: 018 FINAL [facility] STATUS: Home (Routine DC) PAYOR: Medicare [...] Katya Navarrete Date Saved: 05/09/2017 07:09 am [facility] Vital Signs Date Time Vital Sign Value Performing Clinician Facility 02-02-2024 15:46-0500 Body height 170.2 cm Shaw Francois MD Work Phone: [facility] 02-02-2024 15:46-0500 Body mass index (BMI) [Ratio] 26.94 kg/m2 Shaw Francois MD Work Phone: [facility] 02-02-2024 15:46-0500 Body weight 78.02 kg Shaw Francois MD Work Phone: [facility] 02-02-2024 15:46-0500 Diastolic blood pressure 74 mm[Hg] Shaw Francois MD Work Phone: [facility] 02-02-2024 15:46-0500 Heart rate 71 /min Shaw Francois MD Work Phone: [facility] 02-02-2024 15:46-0500 SaO2% (BldA) [Mass fraction] 99 % Shaw Francois MD Work Phone: [facility] 02-02-2024 15:46-0500 Systolic blood pressure 126 mm[Hg] Shaw Francois MD Work Phone: [facility] 09-02-2023 12:21-0400 Body height 166.37 cm II Shaw Francois Work Phone: [facility] 09-02-2023 07:47-0400 Body temperature 97.4 [degF] II Shaw Francois Work Phone: [facility] 09-02-2023 07:47-0400 Diastolic blood pressure 58 mm[Hg] II Shaw Francois Work Phone: [facility] 09-02-2023 07:47-0400 Heart rate 51 /min II Shaw Francois Work Phone: [facility] 09-02-2023 07:47-0400 Respiratory rate 16 /min II Shaw Francois Work Phone: [facility] 09-02-2023 07:47-0400 SaO2% (BldA) [Mass fraction] 97 % II Shaw Francois Work Phone: [facility] 09-02-2023 07:47-0400 Systolic blood pressure 100 mm[Hg] II Shaw Francois Work Phone: [facility] 09-02-2023 05:39-0400 Body weight 86.8 kg II Shaw Francois Work Phone: [facility] 09-01-2023 17:15-0400 Inhaled oxygen flow rate 1 L/min II Shaw Francois Work Phone: [facility] 09-01-2023 10:25-0400 Body mass index (BMI) [Ratio] 29 kg/m2 II Shaw Francois Work Phone: [facility] 06-26-2023 11:43-0400 Body height 170.18 cm II Shaw Francois Work Phone: [facility] 06-26-2023 11:43-0400 Body mass index (BMI) [Ratio] 27.3 kg/m2 II Shaw Francois Work Phone: [facility] 06-26-2023 11:43-0400 Body weight 79.37 kg II Shaw Francois Work Phone: [facility] 06-10-2022 10:20-0400 Body height 168 cm Garrett Beltrán MD Work Phone: [facility] 06-10-2022 10:20-0400 Body temperature 97.39 [degF] Garrett Beltrán MD Work Phone: [facility] 06-10-2022 10:20-0400 Body weight 80.74 kg Garrett Beltrán MD Work Phone: [facility] 06-10-2022 10:20-0400 Diastolic blood pressure 63 mm[Hg] Garrett Beltrán MD Work Phone: [facility] 06-10-2022 10:20-0400 Heart rate 68 /min Garrett Beltrán MD Work Phone: [facility] 06-10-2022 10:20-0400 Respiratory rate 16 /min Garrett Beltrán MD Work Phone: [facility] 06-10-2022 10:20-0400 SaO2% (BldA) [Mass fraction] 97 % Garrett Beltrán MD Work Phone: [facility] 06-10-2022 10:20-0400 Systolic blood pressure 133 mm[Hg] Garrett Beltrán MD Work Phone: [facility] 06-04-2021 10:09-0400 Body height 168 cm Garrett Beltrán MD Work Phone: [facility] 06-04-2021 10:09-0400 Body temperature 97.5 [degF] Garrett Beltrán MD Work Phone: [facility] 06-04-2021 10:09-0400 Body weight 83.01 kg Garrett Beltrán MD Work Phone: [facility] 06-04-2021 10:09-0400 Diastolic blood pressure 53 mm[Hg] Garrett Beltrán MD Work Phone: [facility] 06-04-2021 10:09-0400 Heart rate 66 /min Garrett Beltrán MD Work Phone: [facility] 06-04-2021 10:09-0400 Respiratory rate 16 /min Garrett Beltrán MD Work Phone: [facility] 06-04-2021 10:09-0400 SaO2% (BldA) [Mass fraction] 95 % Garrett Beltrán MD Work Phone: [facility] 06-04-2021 10:09-0400 Systolic blood pressure 128 mm[Hg] Garrett Beltrán MD Work Phone: [facility] Encounters Encounter Date Encounter Type Care Provider Facility Start: 03-05-2024 End: 03-05-2024 Clinisync Result Encounter Shaikh Michael ALVARADO Work Phone: [facility] Unsolicited Start: 03-05-2024 End: 03-05-2024 Clinisync Result Encounter Shaikh Michael ALVARADO Work Phone: [facility] Unsolicited Start: 02-24-2024 End: 02-26-2024 Clinisync Result Encounter Generic External Data Provider [facility] Unsolicited Start: 02-24-2024 End: 02-26-2024 Clinisync Result Encounter Generic External Data Provider [facility] Unsolicited Start: 02-21-2024 End: 02-23-2024 Clinisync Result Encounter Generic External Data Provider [facility] Unsolicited Start: 02-21-2024 End: 02-23-2024 Clinisync Result Encounter Generic External Data Provider [facility] Unsolicited Start: 02-03-2024 End: 02-03-2024 Telephone encounter Jennifer HAQ Work Phone: [facility] Start: 02-02-2024 End: 02-02-2024 Office outpatient visit 25 minutes Shaw Francois MD Work Phone: [facility] Comment on above: Closed fracture of l eft hip with routine healing, subsequent encounter (Primary Dx); Depressive disorder ([facility]) Start: 02-02-2024 End: 02-02-2024 ambulatory SHAW FRANCOIS Not Available Start: 02-02-2024 End: 02-02-2024 Bamboo flowsheet Shaw Francois MD Work Phone: [facility] Start: 02-02-2024 End: 02-02-2024 Bamboo flowsheet Shaw Francois MD Work Phone: [facility] Start: 01-16-2024 End: 01-18-2024 ambulatory [facility] Start: 01-16-2024 End: 01-18-2024 Subsequent hospital visit by physician Jen Additional Xray At [facility] Comment on above: Closed fracture of n tricia of left femur, initial encounter ([facility]) Start: 12-26-2023 End: 12-28-2023 Clinisync Result Encounter Generic External Data Provider [facility] External [facility] Unsolicited Start: 12-26-2023 End: 12-28-2023 Clinisync Result Encounter Generic External Data Provider [facility] External [facility] Unsolicited Start: 12-03-2023 End: 12-03-2023 ambulatory JACINTO DUTTA Not Available Start: 11-25-2023 End: 11-25-2023 ambulatory II Shaw Francois Work Phone: [facility] Work Phone: Start: 11-25-2023 End: 11-25-2023 Patient encounter procedure II Shaw Francois Work Phone: [facility] Work Phone: Start: 11-20-2023 End: 11-20-2023 Bamboo flowsheet Antonette Kelbley TAPE MAKING MACHINE OPERATOR [facility] Start: 11-20-2023 End: 11-20-2023 Bamboo flowsheet Antonette Kelbley TAPE MAKING MACHINE OPERATOR [facility] Start: 11-20-2023 End: 11-20-2023 Admission to same day surgery center Antonette Alexandrey TAPE MAKING MACHINE OPERATOR [facility] Comment on above: Acute pain of right knee (Primary Dx); Aftercare following right knee joint replacement surgery; Knee stiffness, right Start: 11-20-2023 End: 11-20-2023 ambulatory Antonette Andresbley TAPE MAKING MACHINE OPERATOR [facility] Start: 11-18-2023 End: 11-18-2023 Bamboo flowsheet Antonette Kelbley TAPE MAKING MACHINE OPERATOR [facility] Start: 11-18-2023 End: 11-18-2023 Bamboo flowsheet Antonette Kelbley TAPE MAKING MACHINE OPERATOR [facility] Start: 11-18-2023 End: 11-18-2023 Admission to same day surgery center Antonette Camposbley TAPE MAKING MACHINE OPERATOR [facility] Comment on above: Acute pain of right knee (Primary Dx); Aftercare following right knee joint replacement surgery; Knee stiffness, right Start: 11-18-2023 End: 11-18-2023 ambulatory Antonette Gunn TAPE MAKING MACHINE OPERATOR [facility] Start: 11-13-2023 End: 11-13-2023 Admission to same day surgery center Antonette Gunn TAPE MAKING MACHINE OPERATOR [facility] Comment on above: Acute pain of right knee (Primary Dx); Aftercare following right knee joint replacement surgery; Knee stiffness, right Start: 11-13-2023 End: 11-13-2023 ambulatory Antonette Gunn TAPE MAKING MACHINE OPERATOR [facility] Start: 11-13-2023 End: 11-13-2023 Bamboo flowsheet Antonette Gunn TAPE MAKING MACHINE OPERATOR [facility] Start: 11-13-2023 End: 11-13-2023 Bamboo flowsheet Antonette Gunn TAPE MAKING MACHINE OPERATOR [facility] Start: 11-11-2023 End: 11-11-2023 Admission to same day surgery center Antonette Gunn TAPE MAKING MACHINE OPERATOR [facility] Comment on above: Acute pain of right knee (Primary Dx); Aftercare following right knee joint replacement surgery; Knee stiffness, right Start: 11-11-2023 End: 11-11-2023 ambulatory Antonette Gunn TAPE MAKING MACHINE OPERATOR [facility] Start: 11-05-2023 End: 11-05-2023 [...] Start: 10-31-2023 End: 10-31-2023 Bamboo flowsheet Antonette Kelbley TAPE MAKING MACHINE OPERATOR [facility] Start: 10-31-2023 End: 10-31-2023 Bamboo flowsheet Antonette Camposbley TAPE MAKING MACHINE OPERATOR [facility] Start: 10-31-2023 End: 10-31-2023 Admission to same day surgery center Antonette Gunn TAPE MAKING MACHINE OPERATOR [facility] Comment on above: Acute pain of right knee (Primary Dx); Aftercare following right knee joint replacement surgery; Knee stiffness, right Start: 10-31-2023 End: 10-31-2023 ambulatory Antonette Alexandrey TAPE MAKING MACHINE OPERATOR [facility] Start: 10-29-2023 End: 10-29-2023 Bamboo flowsheet Antonette Alexandrey TAPE MAKING MACHINE OPERATOR [facility] Start: 10-29-2023 End: 10-29-2023 Bamboo flowsheet Antonette Alexandrey TAPE MAKING MACHINE OPERATOR [facility] Start: 10-29-2023 End: 10-29-2023 Admission to same day surgery center Antonette Gunn TAPE MAKING MACHINE OPERATOR [facility] Comment on above: Acute pain of right knee (Primary Dx); Aftercare following right knee joint replacement surgery; Knee stiffness, right Start: 10-29-2023 End: 10-29-2023 ambulatory Antonette Alexandrey TAPE MAKING MACHINE OPERATOR [facility] Start: 10-24-2023 End: 10-24-2023 Bamboo flowsheet Antonette Alexandrey TAPE MAKING MACHINE OPERATOR [facility] Start: 10-24-2023 End: 10-24-2023 Bamboo flowsheet Antonette Alexandrey TAPE MAKING MACHINE OPERATOR [facility] Start: 10-24-2023 End: 10-24-2023 Admission to same day surgery center Antonette Gunn TAPE MAKING MACHINE OPERATOR [facility] Comment on above: Acute pain of right knee (Primary Dx); Aftercare following right knee joint replacement surgery; Knee stiffness, right Start: 10-24-2023 End: 10-24-2023 ambulatory Antonette Alexandrey TAPE MAKING MACHINE OPERATOR [facility] Start: 10-21-2023 End: 10-21-2023 Bamboo flowsheet Antonette Alexandrey TAPE MAKING MACHINE OPERATOR [facility] Start: 10-21-2023 End: 10-21-2023 Bamboo flowsheet Antonette Alexandrey TAPE MAKING MACHINE OPERATOR [facility] Start: 10-21-2023 End: 10-21-2023 Admission to same day surgery center Antonette Gunn TAPE MAKING MACHINE OPERATOR [facility] Comment on above: Acute pain of right knee (Primary Dx); Aftercare following right knee joint replacement surgery; Knee stiffness, right Start: 10-21-2023 End: 10-21-2023 ambulatory Antonette Gunn TAPE MAKING MACHINE OPERATOR [facility] Start: 10-17-2023 End: 10-17-2023 Bamboo flowsheet Antonette Alexandrey TAPE MAKING MACHINE OPERATOR [facility] Start: 10-17-2023 End: 10-17-2023 Bamboo flowsheet Antonette Alexandrey TAPE MAKING MACHINE OPERATOR [facility] Start: 10-17-2023 End: 10-17-2023 Admission to same day surgery center Antonette Gunn TAPE MAKING MACHINE OPERATOR [facility] Comment on above: Acute pain of right knee (Primary Dx); Aftercare following right knee joint replacement surgery; Knee stiffness, right Start: 10-17-2023 End: 10-17-2023 ambulatory Antonette Gunn TAPE MAKING MACHINE OPERATOR [facility] Start: 10-15-2023 End: 10-15-2023 Bamboo flowsheet Antonette Alexandrey TAPE MAKING MACHINE OPERATOR [facility] Start: 10-15-2023 End: 10-15-2023 Bamboo flowsheet Antonette Alexandrey TAPE MAKING MACHINE OPERATOR [facility] Start: 10-15-2023 End: 10-15-2023 Patient encounter procedure II Shaw Francois Work Phone: [facility] Work Phone: Start: 10-15-2023 End: 10-15-2023 ambulatory ANTONETTE GUNN Not Available Start: 10-15-2023 End: 10-15-2023 Admission to same day surgery center Antonette Gunn TAPE MAKING MACHINE OPERATOR [facility] Comment on above: Acute pain of right knee (Primary Dx); Aftercare following right knee joint replacement surgery; Knee stiffness, right Start: 10-15-2023 End: 10-15-2023 ambulatory II Shaw Francois Work Phone: [facility] Start: 10-09-2023 End: 10-09-2023 Bamboo flowsheet Antonette Alexandrey TAPE MAKING MACHINE OPERATOR [facility] Start: 10-09-2023 End: 10-09-2023 Bamboo flowsheet Antonette Alexandrey TAPE MAKING MACHINE OPERATOR [facility] Start: 10-09-2023 End: 10-09-2023 Admission to same day surgery center Antonette Gunn TAPE MAKING MACHINE OPERATOR [facility] Comment on above: Acute pain of right knee (Primary Dx); Aftercare following right knee joint replacement surgery; Knee stiffness, right Start: 10-09-2023 End: 10-09-2023 ambulatory Antonette Alexandrey TAPE MAKING MACHINE OPERATOR [facility] Start: 10-06-2023 End: 10-06-2023 Bamboo flowsheet Pilo Osorio TAPE MAKING MACHINE OPERATOR [facility] Start: 10-06-2023 End: 10-06-2023 Bamboo flowsheet Pilo Cazaresink TAPE MAKING MACHINE OPERATOR [facility] Start: 10-06-2023 End: 10-06-2023 Admission to same day surgery center Pilo Osorio TAPE MAKING MACHINE OPERATOR [facility] Comment on above: Acute pain of right knee (Primary Dx); Aftercare following right knee joint replacement surgery; Knee stiffness, right Start: 10-06-2023 End: 10-06-2023 ambulatory Pilo Osorio TAPE MAKING MACHINE OPERATOR [facility] Start: 10-01-2023 End: 10-01-2023 Bamboo flowsheet Antonette Alexandrey TAPE MAKING MACHINE OPERATOR [facility] Start: 10-01-2023 End: 10-01-2023 Bamboo flowsheet Antonette Alexandrey TAPE MAKING MACHINE OPERATOR [facility] Start: 10-01-2023 End: 10-01-2023 Admission to same day surgery center Antonette Gunn TAPE MAKING MACHINE OPERATOR [facility] Comment on above: Acute pain of right knee (Primary Dx); Aftercare following right knee joint replacement surgery; Knee stiffness, right Start: 10-01-2023 End: 10-01-2023 ambulatory Antonette Alexandery TAPE MAKING MACHINE OPERATOR [facility] Start: 09-29-2023 End: 09-29-2023 ambulatory JACKIE PERSAUD Not Available Start: 09-26-2023 End: 09-26-2023 ambulatory ANTONETTE ALEXANDREY Not Available Start: 09-24-2023 End: 09-24-2023 ambulatory JACKIE PERSAUD Not Available Start: 09-18-2023 End: 09-18-2023 ambulatory II Shaw Alessandro Work Phone: [facility] Work Phone: Start: 09-18-2023 End: 09-18-2023 Patient encounter procedure II Shaw Francois Work Phone: [facility] [place] [facility] Work Phone: Start: 09-02-2023 Non-patient / Non-visit II Giovani Francois Work Phone: [facility] Work Phone: Start: 09-01-2023 End: 09-02-2023 Admission to same day surgery center II Shaw Francois Work Phone: [facility] [place] Start: 09-01-2023 End: 09-02-2023 ambulatory II Shaw Francois Work Phone: [facility] Work Phone: Start: 09-01-2023 Non-patient / Non-visit II Giovani kerr Francois Work Phone: [facility] [place] [facility] Work Phone: Start: 08-22-2023 End: 08-22-2023 ambulatory II Shaw Francois Work Phone: [facility] Work Phone: Start: 08-22-2023 End: 08-22-2023 Patient encounter procedure II Shaw Francois Work Phone: [facility] [place] [facility] Work Phone: Start: 08-21-2023 End: 08-21-2023 Patient encounter procedure II Shaw Francois Work Phone: [facility] [place] [facility] Work Phone: Start: 08-21-2023 End: 08-21-2023 Discharged Recurring II Shaw Francois Work Phone: [facility]Physical Therapy [place] Start: 08-21-2023 Registered Recurring II Shaw Alessandro Work Phone: [facility] [place] Start: 08-21-2023 End: 08-21-2023 ambulatory II Shaw Francois Work Phone: [facility] Work Phone: Start: 08-21-2023 End: 08-21-2023 Patient encounter procedure II Shaw Francois Work Phone: [facility] [place] [facility] Start: 08-21-2023 End: 08-21-2023 ambulatory II Shaw Francois Work Phone: [facility] Work Phone: Start: 08-18-2023 End: 08-18-2023 Patient encounter procedure II Shaw Francois Work Phone: [facility]-Pre-Surgical Testing Work Phone: Start: 08-18-2023 End: 08-18-2023 ambulatory II Shaw Francois Work Phone: [facility] Work Phone: Start: 08-18-2023 Encounter for preprocedural laboratory examination Jeevan Sanchez II [facility] Start: 07-24-2023 End: 07-24-2023 ambulatory SHAW FRANCOIS Not Available Start: 07-17-2023 End: 07-17-2023 ambulatory II Shaw Francois Work Phone: [facility] Work Phone: Start: 07-17-2023 End: 07-17-2023 Patient encounter procedure II Shaw Francois Work Phone: [facility] [place] [facility] Work Phone: Start: 07-14-2023 End: 07-14-2023 ambulatory SHAW FRANCOIS Not Available Start: 06-26-2023 End: 06-26-2023 Patient encounter procedure II Shaw Alessandro Work Phone: [facility] [place] [facility] Work Phone: Start: 06-26-2023 End: 06-26-2023 Patient encounter procedure II Shaw Francois Work Phone: [facility] [place] [facility] Start: 06-26-2023 End: 06-26-2023 ambulatory II Shaw Francois Work Phone: [facility] Work Phone: Start: 04-23-2023 End: 04-23-2023 ambulatory FRANCI LAMB Not Available Start: 04-15-2023 End: 04-15-2023 ambulatory JACINTO DUTTA Not Available Start: 06-10-2022 End: 06-10-2022 ambulatory GARRETT BELTRÁN Facility:[facility] Start: 06-10-2022 End: 06-10-2022 Office outpatient [...] encounter procedure II Shaw Francois Work Phone: [facility] Start: 05-08-2017 End: 05-09-2017 Ambulatory SHAW FRANCOIS Facility:[facility] Procedures Date Procedure Procedure Detail Performing Clinician Start: 03-05-2024 ALL CBC WITH AUTO DIFF Shaikh Michael ALVARADO Work Phone: Start: 02-24-2024 AEROBIC CULTURE Generic External Data Provider Start: 02-24-2024 ANAEROBIC CULTURE Gener ic External Data Provider Start: 02-21-2024 BLOOD CULTURE 1 Generic External Data Provider Start: 01-16-2024 Radex hip unilateral with pelvis [...] Work Phone: Start: 08-18-2023 Antibody screen Jeevan Daniel II Comment on above: Order Comment: Date of Surgery: [id number] Result Comment: PERF ORMED BY: [facility] [place] [address] PATHOLOGIST CONTRACT TECHNICAL WRITER CAMILO SEBASTIAN M.D. Start: 07-17-2023 Methicillin resistan t Staphylococcus aureus culture II Shaw Francois Work Phone: Start: 06-26-2023 Plain X-ray of left hip II Shaw Francois Work Phone: Start: 06-26-2023 X-ray of right knee II Shaw Alessandro Work Phone: Start: 2019 Adult depression screening assessment Garrett Beltrán MD Work Phone: Start: 08-17-2015 H/O: hysterectomy History of hysterectomy Antonette Gunn PTA Plan of Treatment Date Care Activity Detail Author Start: 06-04-2024 DIABETES SCREEN DIABETES SCREEN [facility] Start: 04-15-2024 End: 04-15-2024 Patient encounter procedure 04/15/2024 1:45 PM EST Office Visit [facility] [address] [place] [id number] Jacinto Dutta MD [address] [place], [place] [id number] [facility] Start: 03-09-2024 End: 03-09-2024 Patient encounter procedure 03/09/2024 2:00 PM EST Office Visit [facility] [address] [place] [address] Jennifer Elliott PA [address] [place] [address] [facility] Start: 02-09-2024 End: 02-09-2024 Patient encounter procedure 02/09/2024 2:00 PM EST Office Visit [facility] [address] [place] [address] Shaw Francois MD [address] [place] [address] [facility] Start: 02-02-2024 End: 02-02-2024 Patient encounter procedure 02/02/2024 4:00 PM EST Office Visit [facility] [address] [place] [address] Shaw Francois MD [address] [place] [address] Arrived [facility] Comment on above: Arrived Start: 12-17-2023 Medicare Annual Well ness (AWV) Medicare Annual Wellness (AWV) [facility] Start: 11-25-2023 Plain X-ray of right femur XR femur RT 2V* [facility] Start: 11-25-2023 Plain X-ray of right tibia and right fibula XR tibia fibula RT 2V* [facility] Start: 11-25-2023 X-ray of right knee, two views XR knee RT 2V [facility] Start: 11-25-2023 XR Femur - right 2 Views [facility] Start: 11-25-2023 XR Knee - right 2 Views [facility] Start: 11-25-2023 XR Tibia and Fibula - right 2 Views [facility] Start: 11-21-2023 End: 11-21-2023 ambulatory 11/21/2023 12:30 PM EDT Treatment [facility] [address] [facility] [address] [place] [address] Antonette Gunn, TAPE MAKING MACHINE OPERATOR [facility] Start: 11-20-2023 End: 11-20-2023 ambulatory [facility] Comment on above: Arrived Start: 11-18-2023 End: 11-18-2023 ambulatory 11/18/2023 12:30 PM EDT Treatment [facility] [address] [place] [address] Antonette Gunn, TAPE MAKING MACHINE OPERATOR [facility] Start: 11-13-2023 End: 11-13-2023 ambulatory 11/13/2023 2:30 PM EDT Treatment [facility] [address] [place] [address] Antonette Gunn, TAPE MAKING MACHINE OPERATOR [facility] Start: 11-11-2023 End: 11-11-2023 ambulatory 11/11/2023 12:30 PM EDT Treatment [facility] [address] [place] [address] Antonette Gunn, TAPE MAKING MACHINE OPERATOR [facility] Start: 11-05-2023 End: 11-05-2023 ambulatory [facility] Comment on above: Arrived Start: 10-31-2023 End: 10-31-2023 ambulatory 10/31/2023 12:00 PM EDT Treatment [facility] [address] [facility] [address] [place] [address] Sosa Gunnissa, TAPE MAKING MACHINE OPERATOR [facility] Start: 10-29-2023 End: 10-29-2023 ambulatory 10/29/2023 12:30 PM EDT Treatment [facility] [address] [facility] [address] [place] [address] Kelaydey, Antonette, TAPE MAKING MACHINE OPERATOR [facility] Start: 10-24-2023 End: 10-24-2023 ambulatory [facility] Comment on above: Arrived Start: 10-21-2023 End: 10-21-2023 Admission to same day surgery center 10/21/2023 1:00 PM EDT Treatment [facility] [address] [facility] [address] [place] [address] Kelbley, Antonette, TAPE MAKING MACHINE OPERATOR Acute pain of right knee (Primary Dx); Aftercare following right knee joint replacement surgery; Knee stiffness, right [facility] Comment on above: Acute pain of right knee (Primary Dx); Aftercare following right knee joint replacement surgery; Knee stiffness, right Start: 10-21-2023 End: 10-21-2023 ambulatory 10/21/2023 1:00 PM EDT Treatment [facility] [address] [facility] [address] [place] [address] Angelique, Antonette, TAPE MAKING MACHINE OPERATOR [facility] Start: 10-17-2023 End: 10-17-2023 ambulatory [facility] Start: 10-15-2023 X-ray of right knee XR knee RT 3V - NOT FOR ER USE [facility] Start: 10-15-2023 XR Knee - right 3 Views [facility] Start: 10-15-2023 End: 10-15-2023 ambulatory 10/15/2023 11:00 AM EDT Treatment [facility] [address] [facility] [address] [place] [address] Antonette Gunn, OBINNA [facility] Start: 10-12-2023 COVID-19 Vaccine ( season) COVID-19 Vaccine ( season) [facility] Start: 10-12-2023 Influenza vaccination Influenza Vacc ine (#1) [facility] Start: 10-09-2023 End: 10-09-2023 ambulatory [facility] Comment on above: Arrived Start: 10-06-2023 End: 10-06-2023 Admission to same day surgery center 10/06/2023 11:30 AM EDT Treatment [facility] [address] [facility] [address] [place] [address] Pilo Osorio PTA Acute pain of right knee (Primary Dx); Aftercare following right knee joint replacement surgery; Knee stiffness, right [facility] Comment on above: Acute pain of right knee (Primary Dx); Aftercare following right knee joint replacement surgery; Knee stiffness, right Start: 10-06-2023 End: 10-06-2023 ambulatory 10/06/2023 11:30 AM EDT Treatment [facility] [address] [facility] [address] [place] [address] Pilo Osorio PTA [facility] Start: 10-01-2023 End: 10-01-2023 ambulatory 10/01/2023 11:00 AM EDT Treatment [facility] [address] [facility] [address] [place] [address] Antonette Gunn PTA Arrived [facility] Comment on above: Arrived Start: 09-03-2023 [facility] Start: 09-02-2023 [facility] Start: 09-01-2023 Hospital admission [facility] Start: 09-01-2023 Referral to clinical field reviewer [facility] Start: 09-01-2023 Referral to rehabilitation physician [facility] Start: 08-21-2023 Plain X-ray of right femur XR femur RT 2V* [facility] Start: 08-21-2023 Plain X-ray of right tibia and right fibula XR tibia fibula RT 2V* [facility] Start: 08-21-2023 XR Femur - right 2 Views [facility] Start: 08-21-2023 XR Tibia and Fibula - right 2 Views [facility] Start: 08-18-2023 Bacteria identified in Urine by Culture [facility] Start: 08-18-2023 [facility] Start: 07-17-2023 Methicillin resistan t Staphylococcus aureus [Presence] in Unspecified specimen by Organism specific culture [facility] Start: 07-17-2023 [facility] Start: 07-17-2023 MRSA Culture MRSA Culture [facility] Start: 06-11-2023 End: 06-11-2023 CBC W Auto Differential panel - Blood CBC + DIFF Lab Routine Breast screening Expected: 06/11/2023 (Approximate), Expires: 06/11/2023 [facility] Work Phone: Comment on above: Expected: 06/11/2023 (Approximate), Expires: 06/11/2023 Start: 06-11-2023 End: 06-11-2023 Comprehensive metabolic 2000 panel - Serum or Plasma COMP METABOLIC PANEL Lab Routine Breast screening Expected: 06/11/2023 (Approximate), Expires: 06/11/2023 [facility] Work Phone: Comment on above: Expected: 06/11/2023 (Approximate), Expires: 06/11/2023 Start: 06-11-2023 End: 07-10-2023 TORRES SCREENING TORRES SCREENING Radiology Routine Breast screening Expected: 06/11/2023 (Approximate), Expires: 07/10/2023 [facility] Work Phone: Comment on above: Expected: 06/11/2023 (Approximate), Expires: 07/10/2023 Start: 02-10-2023 Annual Wellness Visi t (Medicare Advantage) Annual Wellness Visit (Medicare Advantage) [facility] Start: 06-03-2022 End: 06-04-2022 CBC W Auto Differential panel - Blood CBC + DIFF Lab Routine Breast screening Malignant 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, estrogen receptor positive, unspecified site of breast (HCC) Expected: 06/03/2022 (Approximate), Expires: 06/04/2022 [facility] Work Phone: Comment on above: Expected: 06/03/2022 (Approximate), Expires: 06/04/2022 Start: 06-03-2022 End: 06-04-2022 Comprehensive metabolic 2000 panel - Serum or Plasma COMP METABOLIC PANEL Lab Routine Breast screening Malignant 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, estrogen receptor positive, unspecified site of breast (HCC) Expected: 06/03/2022 (Approximate), Expires: 06/04/2022 [facility] Work Phone: Comment on above: Expected: 06/03/2022 (Approximate), Expires: 06/04/2022 Start: 05-31-2022 End: 07-04-2022 Screening mammography bi 2-view breast inc cad TORRES SCREENING Radiology Routine Breast screening Malignant 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, estrogen receptor positive, unspecified site of breast (HCC) Expected: 05/31/2022 (Approximate), Expires: 07/04/2022 [facility] Work Phone: Comment on above: Expected: 05/31/2022 (Approximate), Expires: 07/04/2022 Start: 02-10-2022 ADVANCE DIRECTIVE DISCUSSION ADVANCE DIRECTIVE DISCUSSION [facility] Start: 02-10-2022 DEPRESSION ASSESSMENT DEPRESSION ASS ESSMENT [facility] Start: 02-10-2021 ADVANCE DIRECTIVE DISCUSSION ADVANCE DIRECTIVE DISCUSSION [facility] Start: 11-09-2020 Adult depression screening assessment DEPRESSION SCREENING [facility] Start: 11-09-2018 Respiratory Syncytia l Virus (RSV) or age 60 yrs+ (1 - 1-dose 75+ series) Respiratory Syncytial Virus (RSV) or age 60 yrs+ (1 - 1-dose 75+ series) [facility] Start: 11-09-2008 BONE DENSITY BONE DENSITY [facility] Start: 11-09-2008 Pneumococcal Vaccine : 65+ Years (1 of 1 - PCV) Pneumococcal Vaccine: 65+ Years (1 of 1 - PCV) [facility] Start: 11-09-1993 Shingles vaccine (1 of 2) Bearden gles vaccine (1 of 2) [facility] Start: 11-09-1993 SHINGRIX VACCINE (1 of 2) BEARDEN GRIX VACCINE (1 of 2) [facility] Start: 11-09-1962 DTaP/Tdap/Td vaccine (1 - Tdap) DTaP/Tdap/Td vaccine (1 - Tdap) [facility] Start: 11-09-1962 Urine microalbumin profile DTAP,TDAP,TD (1 - Tdap) [facility] Start: 11-09-1961 HEPATITIS C SCREENING HEPATITIS C SC REENING [facility] Start: 1955 Depression Screen Depression Screen [facility] AEROBIC CULTURE AEROBIC CULTURE Lab Routine 02/24/2024 6:00 PM EST [facility] ANAEROBIC CULTURE ANAEROBIC CULT URE Lab Routine 02/24/2024 6:00 PM [facility] BLOOD CULTURE 1 BLOOD CULTURE 1 Lab Routine 02/21/2024 1:32 PM EST [facility] Cotinine [Mass/volum e] in Serum or Plasma [facility] Glucose measurement estimated from glycated hemoglobin [facility] Hemoglobin [Mass/vol ume] in Blood [facility] Nicotine [Mass/volum e] in Serum or Plasma [facility] Patient Education [address] [facility] Work Phone: [facility] referral [facility] Work Phone: [facility] Immunizations Immunization Date Immunization Notes Care Provider Dhiraj taylor 12-03-2023 Influenza, High-dose Seasonal, Quadrivalent, Preservative Free Generic Provider [facility] 12-02-2022 influenza, seasonal, injectable Antonette Angelinegisell [facility] 12-02-2022 influenza virus vacc ine, unspecified formulation Antonette Gunn [facility] 12-12-2021 Influenza, Seasonal, Quadrivalent, Adjuvanted Antonettetamica Gunn [facility] 11-27-2021 COVID-19 mRNA Bivale nt Booster (Pfizer) II Shaw Francois Work Phone: [facility] 11-24-2020 COVID-19 mRNA, Comir leonie (Pfizer) II Shaw Francois Work Phone: [facility] 11-17-2020 influenza (aIIV4) vaccine, age 65+ yr, quadrivalent, PF (FLUAD QUADRIVALENT) Garrett Beltrán MD Work Phone: [facility] 03-31-2020 COVID-19 mRNA, Comir leonie (Pfizer) II Shaw Francois Work Phone: [facility] 03-10-2020 COVID-19 mRNA, Comir leonie (Pfizer) II Shaw Francois Work Phone: [facility] 12-07-2019 influenza, high-dose , quadrivalent vaccine (FLUZONE HIGH DOSE QUADRIVALENT) Garrett Beltrán MD Work Phone: [facility] 12-07-2019 pneumococcal conjuga te vaccine, 13 valent Garrett Beltrán MD Work Phone: [facility] 11-24-2019 influenza, seasonal, injectable Garrett Beltrán MD Work Phone: [facility] 11-11-2019 pneumococcal conjuga te vaccine, 13 valent Garrett Beltrán MD Work Phone: [facility] 11-17-2018 influenza, high dose seasonal, preservative-free Antonette Gunn [facility] 11-14-2018 influenza, high dose seasonal, preservative-free Garrett Beltrán MD Work Phone: [facility] 11-24-2017 influenza, high dose seasonal, preservative-free Garrett Beltrán MD Work Phone: [facility] 12-11-2016 influenza, high dose seasonal, preservative-free Garrett Beltrán MD Work Phone: [facility] 11-28-2015 influenza, injectabl e, quadrivalent, contains preservative Garrett Beltrán MD Work Phone: [facility] 07-11-2012 pneumococcal polysaccharide vaccine, 23 valent Garrett Beltrán MD Work Phone: [facility] 11-28-2008 influenza virus vacc ine, whole virus Garrett Beltrán MD Work Phone: [facility] Payers Date Payer Category Payer Self-pay [id number] 2023 Medicare (Managed Care) HELENA Rayo EDRAMIREZRE ADVANTAGE [id number] 2023 Unknown [id number] 2022 Medicare [id number]. 1.13.159. [id number] 2021 Unknown ANTHEM BLUE CROS S AND BLUE SHIELD ANTHJESS TANAUE HMO [id number] 2021-Present [phone] [address] [place] [id number] O [id number] 1.2.840.263810.1.13.159. 2.7.3.576219.315 2020 Unknown [id number] 2017 Unknown [id number] 1945 Unknown [id number] 2.16.840.1.513556.3.579. 2.593 1943 Unknown [id number] 2.16.840.1.373376.3.579. 2.174 1943 Unknown [id number] 2.16.840.1.399201.3.579. 2.174 1943 Unknown [id number] 2.16.840.1.784274.3.579. 2.1258 1943 Unknown [id number] 2.16.840.1.277042.3.579. 2.1258 1943 Unknown [id number] 2.16.840.1.994044.3.579. 2.1258 1943 Unknown [id number] 2.16.840.1.566427.3.579. 2.1258 1943 Unknown [id number] 2.16.840.1.215241.3.579. 2.1258 1943 Unknown [id number] 2.16.840.1.288433.3.579. 2.1258 1943 Unknown [id number] 2.16.840.1.418258.3.579. 2.1258 1943 Unknown [id number] 2.16840.1.593522.3.579. 2.1258 1943 Unknown [id number] 2.16.840.1.774577.3.579. 2.1258 1943 Unknown [id number] 2.16.840.1.604925.3.579. 2.1258 1943 Unknown [id number] 2.16.840.1.773700.3.579. 2.1258 1943 Unknown [id number] 2.16840.1.076418.3.579. 2.1258 1943 Unknown [id number] 2.16.840.1.618152.3.579. 2.1258 1943 Unknown [id number] 2.16.840.1.329934.3.579. 2.1258 1943 Unknown [id number] 2.16.840.1.287158.3.579. 2.1258 1943 Unknown [id number] 2.16.840.1.918179.3.579. 2.1258 1943 Unknown [id number] 2.16.840.1.564435.3.579. 2.1258 1943 Unknown [id number] 2.16.840.1.420401.3.579. 2.1258 1943 Unknown [id number] 2.16.840.1.299458.3.579. 2.1258 1943 Unknown [id number] 2.16.840.1.389348.3.579. 2.1258 1943 Unknown [id number] 2.16.840.1.813108.3.579. 2.1258 1943 Unknown [id number] 2.16.840.1.826801.3.579. 2.1258 1943 Unknown [id number] 2.16.840.1.058811.3.579. 2.1259 Unknown [id number] 2.16.840.1.413938.3.579. 2.531 Unknown [id number] 2.16.840.1.333006.3.579. 2.531 Unknown [id number] 2.16.840.1.427224.3.579. 2.531 Unknown [id number] 2.16.840.1.078542.3.579. 2.531 Unknown [id number] 2.16.840.1.783673.3.579. 2.531 Unknown [id number] 2.16.840.1.052821.3.579. 2.531 Unknown [id number] 2.16.840.1.148084.3.579. 2.531 Unknown [id number] 2.16.840.1.476208.3.579. 2.531 Social History Date Type Detail Facility [facility] Work Phone: Start: 1945 Sex Assigned At Female [facility] Start: 05-15-2011 End: 06-14-2023 Tobacco smoking status NYIS Never smoked tobacco [facility] Start: 06-04-2021 Alcohol intake Current drinke r of alcohol (finding) [facility] Start: 1945 Sex Assigned At Not on file [facility] Start: 05-25-2021 End: 06-04-2021 Exposure to SARS-CoV-2 (event) Not sure [facility] Start: 05-15-2011 End: 07-24-2022 Tobacco use and exposure Smokeless tobacco non-user [facility] Start: 09-03-2023 End: 03-04-2024 Alcoholic beverage intake Lifetime non-drinker (finding) [facility] Start: 10-09-2022 End: 12-16-2022 History of Social function [facility] Start: 10-09-2022 End: 12-16-2022 Humiliation, Afraid, [...] Only a little [facility] (I/We) worried whealbino er (my/our) food would run out before (I/we) got money to buy more. Never true [facility] Start: 08-21-2022 Alcohol Comment caffeine 1-2 c ups per day, coffee:chocolate [facility] Tobacco smoking stat [facility] Tobacco smoking consumption unknown [facility] NEGATED: Highlighted row [facility] Medical Equipment Procedure Code Equipment Code Equipment Origin al Text Equipment Identifier Dates Arthroplasty, knee, total, minimally invasive Orthopaedic cement, non-medicated [id number] FDA Start: 09-01-2023 Arthroplasty, knee, total, minimally invasive Uncoated knee femur prosthesis, metallic [id number] FDA Start: 09-01-2023 Arthroplasty, knee, total, minimally invasive Tibial insert ()[id number] FDA Start: 09-01-2023 Arthroplasty, knee, total, minimally invasive Polyethylene patella prosthesis ()[id number] FDA Start: 09-01-2023 Arthroplasty, knee, total, minimally invasive Knee stem ()[id number] FDA Start: 09-01-2023 Arthroplasty, knee, total, minimally invasive Uncoated knee tibia prosthesis, metallic ()[id number] FDA Start: 09-01-2023 Goals Date Patient Goal Desired Activity /State Functional Status Date Assessment Result Facility 08-18-2023 Functional status Dressing Patient at [facility] Work Phone: Mental Status Date Assessment Result Facility 08-18-2023 Cognitive function Cognitive Sta tus Patient at [facility] Work Phone: Clinical Notes 06-04-2021 [...] Kaminski at pharmacy, with no recent previous [place] script, cannot provide Rx quantity as written. Updated Rx sent. [facility] 02-03-2024 Miscellaneous Notes Formattin g of this note might be different from the original. Josh Kaminski at pharmacy, with no recent previous [place] script, cannot provide Rx quantity as written. Updated Rx sent. documented in this encounter [facility] 02-02-2024 History of Presen t illness Narrative Images from the original note were not included. HPI Follow-up Additional comments: [facility] stay 12/25/23- 12/29/23 for left femur fracture discharged to [facility] for rehab discharged home 01/17/24 Med Refill Additional comments: Zoloft--[facility] Hydrocodone 5/325 [facility] Last edited by Jacqueline Brito LPN on 02/02/2024 3:49 PM. Subjective Patient ID: Nadia Almeida is a 78 y.o. female who presents for Follow-up ([facility] stay 12/25/23- 12/29/23 for left femur fracture discharged to [facility] for rehab discharged home 01/17/24) and Med Refill (Zoloft--[facility]/Hydrocodone 5/325 [facility]). Pt is sched to follow up with ortho in Feb 2024 Taking norco for pain --working well per pt she would like refill Patient has home PT/OT coming to her home Med Refill Current Outpatient Medications on File Prior to Visit Medication Sig Dispense Refill cholecalciferol (Vitamin D-3) 50 MCG (1999) tablet 1 (one) time each day at the same time. levothyroxine (Synthroid, Levoxyl) 125 MCG tablet Take 1 tablet (125 mcg) by mouth in the morning. Take before meals. 100 tablet 2 losartan (Cozaar) 25 MG tablet Take 1 tablet (25 mg) by mouth in the morning. 100 tablet 3 Multiple Vitamins-Minerals (CENTRUM SILVER ULTRA WOMENS PO) Centrum Silver [DISCONTINUED] HYDROcodone-acetaminophen ([place]) 5-325 MG tablet Take 1 tablet by [...] Medical History: Diagnosis Date Breast cancer (CMS/HCC) 2012 right; Dr. Beauchamp Depression (CMS/HCC) Diarrhea Gallbladder disease Gastric ulcer Gastric ulcer History of medical problems 2013 abnormal lesion, right forehead Inflamed seborrheic keratosis Inflamed seborrheic keratosis Multinodular goiter (nontoxic) (CMS/HCC) Non-toxic multinodular goiter (CMS/HCC) Osteopenia Osteopenia Rotator cuff tear 2003 right Past Surgical History: Procedure Laterality Date BREAST BIOPSY Right 2012 EGD 08/23/2016 DEXA SCAN 2013 HYSTERECTOMY 1974 IR ABLATION BONE 06/08/2018 Left C2-C5 MASTECTOMY Right 2012 NERVE BLOCK 01/30/2018 Left C3-C6 OTHER SURGICAL HISTORY 2013 excision of soft tissue mass seond intersace left foot NC EGD TRANSORAL BIOPSY SINGLE/MULTIPLE 05/23/2021 NC MOHS MICROGRAPHIC H/N/H/F/G 1ST STAGE 5 BLOCKS [...] with routine healing, subsequent encounter - HYDROcodone-acetaminophen ([place]) 5-325 MG tablet; Take 1 tablet by [...] for Routine F/U. documented in this encounter [facility] 11-05-2023 History of Presen t illness [...] to be instructed in home exercise program. [employer] Goals: To be met in 10 weeks [...] below. Date: / documented in this encounter [facility] 09-02-2023 Consult note Note Date/Time September 02, 2023 8:13am [facility] [address] [place] [address] Physiatry (Rehab) Consult Note Signed Patient: Nadia Almeida MR#: [id number] : 1945 Acct:[id number] Age/Sex: 77 / F Adm Date: 4 Loc: Room: [address] [place] [address] Type: REG SDC Attending Dr: Jeevan Sanchez [...] negative unless noted below or in HPI [facility] Medical History Depression Numbness and tingling of [...] thyroidectomy Family History Sister Breast cancer Brother Lukasz AlmeidaHx Relation: Brother(s) Father Mother Social History Smoking [...] mg PO QAM 05/22/21 [History Confirmed 09/01/23] mdpxwhpvmyvw-fbxfrfja-zujrvk tablet 1 tab PO DAILY 05/22/21 [History [...] MPV Neut % (Auto) Lymph % (Auto) [place] % (Auto) Eos % (Auto) Baso % (Auto) Nucleat RBC Rel Count Neut # (Auto) Lymph # (Auto) [place] # (Auto) Eos # (Auto) Baso # [...] % (Auto) 77.9 Lymph % (Auto) 14.7 [place] % (Auto) 6.3 Eos % (Auto) 0.8 Baso % (Auto) 0.3 Nucleat RBC Rel Count 0.1 Neut # (Auto) 8.2 H Lymph # (Auto) 1.5 [place] # (Auto) 0.7 Eos # (Auto) 0.1 [...] Explained postacute care options including inpatient rehab, prison, home with home health care or outpatient [...] chart, including current orders, allied health and bridal consultant notes, labs/imaging and performed singh elements of exam and I formulated the plan of care and facilitated the medical decision making. I completed a substantive portion of this encounter, the medical decision makingportion of this note in its entirety, including Allied health note review, nursing note review, bridal consultant note review, discussion with nursing and case management, and more than 50% of my time was spent on counseling and coordination of care, time spent 65 minutes Documented By: Vinnie Yin MD 09/02/23 0813 Signed By: <Electronically signed by Vinnie Yin MD> 09/02/23 1422 [facility] Work Phone: 1(404) 116-133607-23-2024 Progress note Author Jeevan Sanchez [facility] September 02, 2023 7:55am Note Date/Time September 02, 2023 7:55 am [facility] [address] [place] [address] Orthopedic Progress Note Signed Patient: Nadia Almeida MR#: [id number] : 1945 Acct:[id number] Age/Sex: 77 / F Adm Date: 4 Loc: 4N Room: 9L4567-9 Type: REG SDC Attending Dr: Jeevan Sanchez [...] MPV Neut % (Auto) Lymph % (Auto) [place] % (Auto) Eos % (Auto) Baso % (Auto) Nucleat RBC Rel Count Neut # (Auto) Lymph # (Auto) [place] # (Auto) Eos # (Auto) Baso # [...] % (Auto) 77.9 Lymph % (Auto) 14.7 [place] % (Auto) 6.3 Eos % (Auto) 0.8 Baso % (Auto) 0.3 Nucleat RBC Rel Count 0.1 Neut # (Auto) 8.2 H Lymph # (Auto) 1.5 [place] # (Auto) 0.7 Eos # (Auto) 0.1 Baso # (Auto) 0.0 PHA Creatinine Clear Sodium Potassium Chloride Carbon Dioxide Anion Gap BUN Creatinine Est GFR (CKD-EPI) Glucose Calcium Blood Type Recheck [facility] INPATIENT [employer] [facility] Ambulation: 1 Yes, [...] <Electronically signed by Jeevan Sanchez MD> 09/02/23 6671 [facility] Work Phone: 1(844) 926-317207-23-2024 Consult note Author Gm Manning [facility] September 02, 2023 2:33am Note Date/Time September 01, 2023 4:12 pm [facility] [address] [place] [address] Hospitalist Consult Note Signed Patient: Nadia Almeida MR#: [id number] : 1945 Acct:[id number] Age/Sex: 77 / F Adm Date: 4 Loc: 4N Room: 1M4318-4 Type: REG SD Attending Dr: Jeevan Sanchez II, MD Copies [...] negative unless noted in the HPI above [facility] Medical History (Updated 09/01/23 @ 16:11 by Carlota aPige APRN) Depression Numbness and tingling of both [...] mg PO QAM 05/22/21 [History Confirmed 09/01/23] txvcaxvotlan-ysowntce-nucxkn tablet 1 tab PO DAILY 05/22/21 [History [...] Lactated Ringers IV 08/31/24 15:29 75 mls/hr .[id number] KENNETH Administration Lidocaine HCl 0.1 ml 09/01/23 10:30 Lidocaine 1% 50 Ml Vial INTRADERMA PREOP PRN Venipuncture x 1 Dose Mineral Oil 1 each 09/04/23 15:17 Mineral Oil ([place]) 1 Each Enema NC ONCE PRN Constipation Morphine Sulfate 15 mg [...] signed by Gm Manning MD> 09/02/23 0233 [facility] Work Phone: 1(460) 611-232305-01-2023 NoteHNO ID: [id number] Author: Garrett Beltrán MD Service: ? Author Type: Physician Type: Progress Notes Filed: 06/16/2022 4:20 PM Note Text: NAME: Nadia Almeida CLINIC NO.: [id number] DATE OF SERVICE: June 10, 2022 (Benny) Some elements in this clinic note that are critical to medical decision making have been carefully reviewed and included from a prior clinic note dated: June 04, 2021 Referring Provider: Shaw Francois II CC: Right breast cancer ER/NC positive, HER-2/crescencio negative diagnosed May 2011. 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 HER-2/crescencio was negative. [place] lymph nodes were negative. Mastectomy done 05/14/2011 also showed a 0.5 cm grade 2 ER/NC positive HER-2/crescencio negative invasive ductal carcinoma with [...] Take 1 tablet by mouth once daily. Bhflvlnquiurd-Llvsxfnr-Qtzfkc (CENTRUM SILVER) tab Take 1 tablet by [...] Value 06/04/2021 173 MPV (fL) Date Value / (more content not included)...[facility]05-01-2023 Instructions* Patient Instructions* Garrett Beltrán MD - 06/10/2022 11:07 AM EDT RTC PRN Order mammogram Left side in 1 year but CC: to Dr. Francois and Follow up with Dr. Francois for labs and exam in 1 year. [facility] History of Present illness Narrative* Garrett Beltrán MD - 06/10/2022 10:21 AM EDT Images from the original note were not included. NAME: Nadia Almeida CLINIC NO.: [id number] DATE OF SERVICE: June 10, 2022 (Benny) Some elements in this clinic note that are critical to medical decision making have been carefully reviewed and included from a prior clinic note dated: June 04, 2021 Referring Provider: Shaw Francois II CC: Right breast cancer ER/NC positive, HER-2/crescencio negative diagnosed May 2011. 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 HER-2/crescencio was negative. [place] lymph nodes were negative. Mastectomy done 05/14/2011 also showed a 0.5 cm grade 2 ER/NC positive HER-2/crescencio negative invasive ductal carcinoma with [...] Take 1 tablet by mouth once daily. Bjmdbhhzltmyx-Kzjwzrzk-Bnaoyw (CENTRUM SILVER) tab Take 1 tablet by [...] Plan: CBC + DIFF, COMP METABOLIC PANEL, [facility] SCREENING (C50.911, Z17.0) Malignant 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, estrogen receptor positive, unspecified site of breast (HCC) PAST MEDICAL HISTORY Diagnosis Date Breast cancer, right breast (HCC) 04/2011 T1N0Mx - stage 1, ER+NC+HER2- HTN (hypertension) PAST SURGICAL HISTORY Procedure Laterality [...] which included preparing to see the patient, zdwm-dn-blkm patient care, completing clinical documentation, performing a medically appropriate examination and ordering medications, tests, or procedures. Garrett Beltrán MD, [place], [place] CC: Shaw Francois II, MD [address] [facility] [address] [facility] [address] documented in this [facility]04-25[facility]22 History of Present illness Narrative* Garrett Beltrán MD - 06/04/2021 10:47 AM EDT Images from the original note were not included. NAME: Nadia Almeida [facility] NO.: [id number] DATE OF SERVICE: June 04, 2021 Some elements in this clinic note that are critical to medical decision making have been carefully reviewed and included from a prior clinic note dated: December 04, 2020 Referring Provider: Shaw Francois II CC: Right breast cancer ER/NC positive, HER-2/crescencio negative diagnosed May 2011. 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 HER-2/crescencio was negative. [place] lymph nodes were negative. Mastectomy done 05/14/2011 also showed a 0.5 cm grade 2 ER/NC positive HER-2/crescencio negative invasive ductal carcinoma with [...] Take 1 tablet by mouth once daily. Uencuugrnkxbi-Kahzwyts-Qodxxg (CENTRUM SILVER) ORAL Tab Take 1 tablet [...] breast (HCC) 04/2011 T1N0Mx - stage 1, ER+NC+HER2- HTN (hypertension) PAST SURGICAL HISTORY Procedure Laterality [...] which included preparing to see the patient, eeab-ab-qmwb patient care, completing clinical documentation, performing a medically appropriate examination and ordering medications, tests, or procedures. Garrett Beltrán MD, CPE [place], [place] CC: Shaw Francois II, MD [address] [facility] [address] documented in this [facility]04-25-2022 Nurse Note* Ethel Cervantes MA - 06/04/2021 10:20 AM EDT Patient would like a breast exam states it has been awhile since one was performed. Ethel Cervantes MA documented in this encounterOhio[facility]Eval[facility] noteNo assessment [facility] Work Phone: Evaluation note* Diagnosis Breast screening- Primary Breast screening, unspecified Malignant 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, estrogen receptor positive, unspecified site of breast (HCC) Abnormal breath sounds Abnormal chest sounds Elevated hemidiaphragm Disorders of diaphragm documented in this encounter [facility] note* Diagnosis History of breast cancer- Primary Personal history of malignant neoplasm of breast Breast screening Breast screening, unspecified Malignant 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, estrogen receptor positive, unspecified site of breast (HCC) documented in this encounter [facility] note* Diagnosis Onset Date Resolution Status Osteoarthritis of right knee acute [facility] Work Phone: Evaluation note* Diagnosis Onset Date Resolution Status Osteoarthritis of right knee acute Osteoarthritis of right knee acute [facility] Work Phone: evaluation note* Diagnosis Onset Date Resolution Status Osteoarthritis of right knee acute Osteoarthritis of right knee acute Osteoarthritis of right knee acute [facility] Work Phone: Evaluation note* Diagnosis Onset Date Resolution Status Osteoarthritis of right knee acute Osteoarthritis of right knee acute Osteoarthritis of right knee acute Hypertension acute Impaired mobility and activities of daily living acute Osteoarthritis of right knee acute Postoperative pain acute Status post total right knee replacement acute [facility] Work Phone: Evaluation note* Diagnosis [...] Status post total right knee replacement acute [facility] Work Phone: Evaluation note* Diagnosis Onset Date Resolution Status Osteoarthritis of right knee acute Osteoarthritis of right knee acute Hypertension acute Impaired mobility and activities of daily living acute Osteoarthritis of right knee acute Postoperative pain acute Status post total right knee replacement acute Aftercare following right knee joint replacement surge ry acute Status post total right knee replacement acute [facility] Work Phone: Evaluation note* Diagnosis [...] Status post total right knee replacement acute [facility] Work Phone: Evaluation note* Diagnosis Onset Date [...] Status post total right knee replacement acute [facility] Work Phone: Evaluation note* Diagnosis Acute pain of right knee- Primary Aftercare following right knee joint replacement surgery Knee stiffness, right [facility] Diagnosis Acute pain of right knee- Primary Aftercare following right knee joint replacement surgery Knee stiffness, right documented in this encounter [facility]* Diagnosis Acute pain of right knee- Primary Aftercare following right knee joint replacement surgery Knee stiffness, right documented in this encounter [facility]* Diagnosis Acute pain of right knee- Primary Aftercare following right knee joint replacement surgery Knee stiffness, right documented [facility] encounter [facility]* Diagnosis Onset Date Resolution Status [...] right knee joint replacement surge ry acute [facility] Work Phone: Evaluation note* Diagnosis Closed fracture of neck of left femur, initial encounter ([facility] Acute pain of right knee- Primary Aftercare following right knee joint replacement surgery Knee stiffness, right documented in this encounter [facility]* Diagnosis Closed fracture of left hip with routine healing, subsequent encounter- Primary Depressive disorder ([facility]/HCC) Depressive disorder, not elsewhere classified documented in this encounter [facility]* Diagnosis Closed fracture of left hip with routine healing, subsequent encounter [facility] Diagnostic Procedure Only (Routine) - Pending Review Specialty Diagnoses / Procedures Referred By Mj mireles Referred To Contact [facility] Diagnoses Breast screening Malignant 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, estrogen receptor positive, unspecified site of breast (HCC) Procedures TORRES SCREENING SCREENING MAMMOGRAPHY BI 2-VIEW BREAST INC Garrett Joyce MD [address] [place] [address] [place] [address] [facility] [address] [place] [phone] Referral ID Status Reason Start Date Expiration Date Visits Requested Visits Authorized [id number] Pending Review Auto-Generat ed Referral 05/31/2022 07/04/2022 1 1 T [facility] for referral (narrative)* Diagnostic Procedure Only (Routine) - Pending Review Specialty Diagnoses / Procedures Referred By Mj mireles Referred To Contact [facility] Diagnoses Breast screening Procedures TORRES SCREENING SCREENING MAMMOGRAPHY BI 2-VIEW BREAST INC Garrett Joyce MD [address] [place] [address] [place] [address] [facility] [address] [place] [address] Referral ID Status Reason Start Date Expiration Date Visits Requested Visits Authorized [id number] Pending Review Auto-Generat ed Referral 06/11/2023 07/10/2023 1 1 [facility] Summary Purpose Family History Relationship Condition Age at Onset Recorded Date/T derrick sister Malignant neoplasm of breast Unknown brother Unknown father Unknown Not Specified Unknown Relationship Condition Age at Onset Recorded Date/T derrick sister Malignant neoplasm of breast Unknown brother Unknown father Unknown mother Unknown Advance Directives Advance Directive Response Recorded Date/ Time Advance Directives No May 16 2:08pm Documents on File Type Date Recorded 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 Advance Directive(s) 06/03/2016 2:33 PM [...] section and content) DATE CREATED AUTHOR 07/31/2017 [facility] DATE CREATED AUTHOR AUTHOR'S ORGANIZ ATION 09/29/2019 [facility] DATE CREATED AUTHOR AUTHOR'S ORGANIZ ATION 11/15/2019 [facility] DATE CREATED AUTHOR AUTHOR'S ORGANIZ ATION 04/27/2021 [facility] dical Specialist DATE CREATED AUTHOR AUTHOR'S ORGANIZ ATION 06/04/2022 [facility] DATE CREATED AUTHOR AUTHOR'S ORGANIZ ATION 06/17/2022 [facility] [facility] DATE CREATED AUTHOR AUTHOR'S ORGANIZ ATION 11/27/2023 [facility] DATE CREATED AUTHOR AUTHOR'S ORGANIZ ATION 01/21/2024 [facility] DATE CREATED AUTHOR AUTHOR'S ORGANIZ ATION 02/05/2024 [facility] EPIC Care Teams (unrecognized sec [...] Jordan MD Other Provider Active Start: J 2023 End: September 02, 2023 Halle Salmeron [...] Jeremi Gaytan MD Other Provider Active Start: 2023 End: September 02, 2023 Prakash Bañuelos MD Other Provider Active Start: Aug End: September 02, 2023 Yasmin Lyons , [employer] Other Provider Active St art: September 01, 2023 End: September 02, 2023 Angelica Granger APRN Other Provider Active Star t: September 01, 2023 End: September 02, 2023 Saulo Vee MD Other Provider Active Start: September 01, 2023 End: September 02, 2023 Mian Fuller MD Other Provider Active Start: 2023 End: September 02, 2023 Ashok Lozada MD Other Provider Active Start: Aug End: September 02, 2023 Anastasiia Cortez MD Other Provider Active Star t: September 01, 2023 End: September 02, 2023 Maik Quinteros MD Other Provider Active Start: Marshal 2023 End: September 02, 2023 Lesli Garcia DO Other Provider Active Start: Edie ly 2023 End: September 02, 2023 Ferdinand Osorio DO Other Provider Active Start : September 01, 2023 End: September 02, 2023 Carlota Paige APRN Other Provider Active Start: September 01, 2023 End: September 02, 2023 Klaus Hennessy , Other Provider Active Start: September 01, 2023 [...] Price MD Other Provider Active Start: J ariana 2023 End: September 02, 2023 Shaw Coronado MD Other Provider Active S tart: September 01, 2023 End: September 02, 2023 Yovani Quintana , Other Provider Active Star t: September 01, [...] Cheng MD Other Provider Active Start: J ariana 2023 End: September 02, 2023 Neeraj Pham MD Other Provider Active Start: Edie berg 2023 End: September 02, 2023 Sofía Thornton RN Other Provider Active Start: J ariana 2023 End: September 02, 2023 Vinnie Yin MD Other Provider Active Start: J ariana 2023 End: September 02, 2023 Team Status: Active Member Role Status Dates Shaw Francois II MD Primary Care Provider Active Start: September 02, 2023 Jeevan Sanchez II, MD Other Provider Active S tart: September 02, 2023 Nancy Chaparro RN Other Provider Active Star t: September 02, 2023 Samantha Anderson RN Other Provider Active Start : September 02, 2023 Naila Orona DEBI Other Provider Active Star t: September 02, 2023 Ada Farfan , DEBI Other Provider Active Start: 2023 Huyen Velasco RN Other Provider Active Start: 2023 Daryn Rowland MD Other Provider Active [...] Jeremi Gaytan MD Other Provider Active Start: 2023 Prakash Bañuelos MD Other Provider Active Start: Aug Yasmin Lyons NP-C Other Provider Active St art: September 02, 2023 Angelica Granger APRN Other Provider Active Star t: September 02, 2023 Saulo Vee MD Other Provider Active Start: September 02, 2023 Mian Fuller MD Other Provider Active Start: 2023 Ashok Lozada MD Other Provider Active Start: Aug Anastasiia Cortez MD Other Provider Active Star t: September 02, 2023 Maik Quinteros MD Other Provider Active Start: 2023 Lesli Garcia DO Other Provider Active Start: 2023 Ferdinand Osorio DO Other Provider Active [...] Polina Price MD Other Provider Active Start: 2023 Shaw Coronado MD Other Provider Active [...] Active Naya Weber DO Attending Provider Active [employer] Relationship Specialty Start Date End Date Shaw Francois II [address] [place] [address] PCP - General Internal Medicine 01/15/16 [employer] Work[employer] Relationship Specialty Start Date End Date Shaw Francois II [address] [place] [address] PCP - General Internal Medicine 01/15/16 Team [...] Attending Provider Active Start: October 15, 2023 [employer] Work[employer] Relationship Specialty Start Date End Date Shaw Francois MD [address] [place] [address] PCP - General Internal Medicine 07/23/22 Shaw Francois MD [address] [place] [address] PCP - Helena PETERS 02/10/23 [employer] Worker Relationship Specialty Start Date End Date Shaw Francois MD [address] [place] [address] PCP - General Internal Medicine 07/23/22 Shaw Francois MD [address] [place] [address] PCP - Helena PETERS 02/10/23 [employer] Worker Relationship Specialty Start Date End Date Shaw Francois MD [address] [place] [address] PCP - General Internal Medicine 07/23/22 Shaw Francois MD [address] [place] [address] PCP Areli Malik MA 02/10/23 [employer] Worker Relationship Specialty Start Date End Date Shaw Francois MD [address] [place] [address] PCP - General Internal Medicine 07/23/22 Shaw Francois MD [address] [place] [address] PCP - Helena PETERS 02/10/23 [employer] Worker Relationship Specialty Start Date End Date Shaw Francois MD [address] [place] [address] PCP - General Internal Medicine 07/23/22 Shaw Francois MD [address] [place] [address] PCP - Helena PETERS 02/10/23 [employer] Worker Relationship Specialty Start Date End Date Shaw Francois MD [address] [place] [address] PCP - General Internal Medicine 07/23/22 Shaw Francois MD [address] [place] [address] PCP - Helena PETERS 02/10/23 [employer] Worker Relationship Specialty Start Date End Date Shaw Oconnor MD [address] [address] PCP - General Family Medicine 01/16/24 [employer] Worker Relationship Specialty Start Date End Date Shaw Oconnor MD [address] [address] PCP - General Family Medicine 01/16/24 [employer] Worker Relationship Specialty Start Date End Date Shaw Francois MD [address] [place] [address] PCP - General Internal Medicine 07/23/22 Shaw Francois MD [address] [place] [address] PCP - Helena PETERS 02/10/23 [employer] Worker Relationship Specialty Start Date End Date Shaw Francois MD [address] [place] [address] PCP - General Internal Medicine 07/23/22 Shaw Francois MD [address] [place] [address] PCP - Helena PETERS 02/10/23 Machine [employer] Worker Relationship Specialty Start Date End Date Shaw Francois MD [address] [place] [address] PCP - General Internal Medicine 07/23/22 Shaw Francois MD [address] [place] [address] PCP - Helena PETERS 02/10/23 Machine [employer] Worker Relationship Specialty Start Date End Date Shaw Francois MD [address] [place] [address] PCP - General Internal Medicine 07/23/22 Shaw Francois MD [address] [place] [address] PCP - Helena PETERS 02/10/23 Machine [employer] Worker Relationship Specialty Start Date End Date Shaw Francois MD [address] [place] [address] PCP - General Internal Medicine 07/23/22 Shaw Francois MD [address] [place] [address] PCP - Helena PETERS 02/10/23 Machine [employer] Worker Relationship Specialty Start Date End Date Shaw Francois MD [address] [place] [address] PCP - General Internal Medicine 07/23/22 Shaw Francois MD [address] [place] [address] PCP - Helena PETERS 02/10/23 Machine [employer] Worker Relationship Specialty Start Date End Date Shaw Francois MD [address] [place] [address] PCP - General Internal Medicine 07/23/22 Shaw Francois MD [address] [place] [address] PCP - Helena PETERS 02/10/23 Machine [employer] Worker Relationship Specialty Start Date End Date Shaw Francois MD [address] [place] [address] PCP - General Internal Medicine 07/23/22 Shaw Francois MD [address] [place] [address] PCP - Helena PETERS 02/10/23 Goals (unrecognized [...] this informatio n is protected by the [facility] of Alcohol and Drug Abuse Patient Records regulations: The Federal rules restrict any use of the information to criminally investigate or prosecute any alcohol or drug abuse patient.[place]healthIn the event this information is protected by the Federal Confidentiality of Alcohol and Drug Abuse Patient Records regulations: The Federal rules restrict any use of the information to criminally investigate or prosecute any alcohol or drug abuse patient.[facility] Reason for Visit (unrecogniz ed section and content) Reason Comments Breast Cancer 6 month follow up Reason Comments Breast Cancer 1 year follow up Specialty Diagnoses / Procedures Referred By Contac t Referred To Contact Physical Therapy Diagnoses Pain in right knee Procedures [place] PHYSICAL THERAPY EVALUATION LOW COMPLEX [address] [address] Jackie Persaud, PT [address] [place] [address] Referral ID Status Reason Start Date Expiration Date Visits Requested Visits Authorized [id number] Authorized Consult and Treat 11/05/2023 02/02/2024 12 12 Referral ID Status Reason Start Date Expiration Date V isits Requested Visits Authorized [id number] Closed Consult and Treat 11/05/2023 02/02/2024 12 12 Specialty Diagnoses / Procedures Referred By Contac t Referred To Contact Physical Therapy Diagnoses Right Total Knee Arthroplasty Procedures [place] PHYSICAL THERAPY EVALUATION LOW COMPLEX [address] [address] Jackie Persaud, PT [address] [place] [address] Referral ID Status Reason Start Date Expiration Date V isits Requested Visits Authorized [id number] Authorized 09/24/2023 03/17/2024 12 12 Referral ID Status Reason Start Date Expiration Date Visits Re quested Visits Authorized [id number] Closed 09/24/2023 03/17/2024 12 12 Reason Comments Follow-up TB stay 12/25/23- 1 02/27/23 for left femur fracture discharged to [facility] for rehab discharged home 01/17/24 Med Refill [...] BE BASED ON THE PRIMARY CLINICAL RECORDS. [employer] [facility]. provides no warranty or guarantee of the accuracy or completeness of information in this document.
[2024-03-08 13:52] LABS: Basophils Absolute Auto 0.1 10^3/uL (0.0-0.1); Basophils Percent Auto 1.6 % (0.2-2.0); Eosinophils Absolute Auto 0.3 10^3/uL (0.0-0.7); Eosinophils Percent Auto 3.9 % (0.9-7.0); Hematocrit 33.3 % (36.0-48.0); Immature Granulocytes Abs Auto 0.03 10^3/uL (0.00-0.03); Immature Granulocytes Pct Auto 0.4 % (0.0-0.5); Lymphocytes Absolute Auto 1.8 10^3/uL (1.2-3.8); Lymphocytes Percent Auto 23.5 % (20.5-60.0); Mean Corpuscular Hemoglobin 29.6 pg (26.7-34.0); Mean Corpuscular Volume 89.5 fL (81.0-99.0); Mean Platelet Volume 9.2 fL (9.5-13.5); Monocytes Absolute Auto 0.6 10^3/uL (0.3-0.8); Monocytes Percent Auto 7.8 % (1.7-12.0); Neutrophils Absolute Auto 4.7 10^3/uL (1.4-6.5); Neutrophils Percent Auto 62.8 % (43.0-75.0); Platelet Count 285 10^3/uL (150-450); Red Blood Count 3.72 10^6/uL (4.20-5.40); Red Cell Distribution Width 14.1 % (11.0-15.0); White Blood Count 7.5 10^3/uL (4.0-11.0)
[2024-03-08 14:02] LABS: Alanine Aminotransferase 23 U/L (14-59); Albumin Globulin Ratio 1.1; Albumin Level 3.3 g/dL (3.4-5.0); Alkaline Phosphatase 73 U/L (46-116); Aspartate Amino Transferase 18 U/L (15-37); BUN Creatinine Ratio 18.3; Bilirubin Total 0.5 mg/dL (0.2-1.0); C Reactive Protein <0.50 mg/dL (<=0.50); Calcium 8.8 mg/dL (8.5-10.1); Carbon Dioxide 27.9 mmol/L (21.0-32.0); Chloride 106 mmol/L (98-107); Estimated GFR (African America >60 (>=60 mL/min/1.73m^2); Estimated GFR (Non-African Ame >60 (>=60 mL/min/1.73m^2); Glucose 95 mg/dL (74-106); Potassium 3.9 mmol/L (3.5-5.1); Sodium 142 mmol/L (136-145); Total Protein 6.3 g/dL (6.4-8.2); Vancomycin Trough 12.8 ug/mL (5.0-20.0)
[2024-03-08 14:16] LABS: Erythrocyte Sedimentation Rate 8 mm/hr (<=30)
== END 2024-03-08 13:09 | disposition home or self-care (01) ==
LOC: LAB 13:08
PROVIDERS: PCP Internal Medicine; Visit Provider Internal Medicine
DX: L02.416 Cutaneous abscess of left lower limb (principal)
CPT/HCPCS: 36415; 80053; 80202; 85025; 85652; 86140

== ENCOUNTER 2024-03-15 12:30 | Outpatient (REF) | payer MEDICARE, SELFPAY ==
[2024-03-15 13:18] LABS: Basophils Absolute Auto 0.1 10^3/uL (0.0-0.1); Basophils Percent Auto 1.9 % (0.2-2.0); Eosinophils Absolute Auto 0.4 10^3/uL (0.0-0.7); Eosinophils Percent Auto 8.2 % (0.9-7.0); Hematocrit 36.3 % (36.0-48.0); Immature Granulocytes Abs Auto 0.01 10^3/uL (0.00-0.03); Immature Granulocytes Pct Auto 0.2 % (0.0-0.5); Lymphocytes Absolute Auto 1.5 10^3/uL (1.2-3.8); Lymphocytes Percent Auto 27.5 % (20.5-60.0); Mean Corpuscular HGB Conc 33.1 g/dL (29.9-35.2); Mean Corpuscular Hemoglobin 29.4 pg (26.7-34.0); Monocytes Absolute Auto 0.3 10^3/uL (0.3-0.8); Monocytes Percent Auto 6.1 % (1.7-12.0); Neutrophils Percent Auto 56.1 % (43.0-75.0); Platelet Count 229 10^3/uL (150-450); Red Blood Count 4.08 10^6/uL (4.20-5.40); Red Cell Distribution Width 14.2 % (11.0-15.0); White Blood Count 5.3 10^3/uL (4.0-11.0)
[2024-03-15 13:30] LABS: Alanine Aminotransferase 27 U/L (14-59); Albumin Globulin Ratio 1.2; Albumin Level 3.4 g/dL (3.4-5.0); Alkaline Phosphatase 69 U/L (46-116); Anion Gap 11.7; Aspartate Amino Transferase 20 U/L (15-37); BUN Creatinine Ratio 18.5; Bilirubin Total 0.7 mg/dL (0.2-1.0); C Reactive Protein <0.50 mg/dL (<=0.50); Calcium 8.6 mg/dL (8.5-10.1); Chloride 106 mmol/L (98-107); Estimated GFR (African America >60 (>=60 mL/min/1.73m^2); Estimated GFR (Non-African Ame >60 (>=60 mL/min/1.73m^2); Globulin 2.9 g/dL; Glucose 121 mg/dL (74-106); Potassium 3.7 mmol/L (3.5-5.1); Sodium 142 mmol/L (136-145); Total Protein 6.3 g/dL (6.4-8.2); Vancomycin Trough 12.4 ug/mL (5.0-20.0)
[2024-03-15 14:46] LABS: Erythrocyte Sedimentation Rate 3 mm/hr (<=30)
== END 2024-03-15 12:31 | disposition home or self-care (01) ==
LOC: LAB 12:30
PROVIDERS: PCP Internal Medicine; Visit Provider Internal Medicine
DX: L02.416 Cutaneous abscess of left lower limb (principal)
CPT/HCPCS: 36415; 80053; 80202; 85025; 85652; 86140

== ENCOUNTER 2024-03-22 12:05 | Outpatient (REF) | payer MEDICARE, SELFPAY ==
[2024-03-22 12:56] LABS: Basophils Absolute Auto 0.1 10^3/uL (0.0-0.1); Basophils Percent Auto 1.5 % (0.2-2.0); Eosinophils Absolute Auto 0.5 10^3/uL (0.0-0.7); Eosinophils Percent Auto 7.9 % (0.9-7.0); Hematocrit 40.3 % (36.0-48.0); Hemoglobin 13.5 g/dL (12.0-16.0); Immature Granulocytes Abs Auto 0.01 10^3/uL (0.00-0.03); Immature Granulocytes Pct Auto 0.2 % (0.0-0.5); Lymphocytes Absolute Auto 1.8 10^3/uL (1.2-3.8); Mean Corpuscular HGB Conc 33.5 g/dL (29.9-35.2); Mean Corpuscular Hemoglobin 29.5 pg (26.7-34.0); Mean Platelet Volume 9.6 fL (9.5-13.5); Monocytes Absolute Auto 0.4 10^3/uL (0.3-0.8); Monocytes Percent Auto 6.5 % (1.7-12.0); Neutrophils Absolute Auto 3.6 10^3/uL (1.4-6.5); Neutrophils Percent Auto 55.9 % (43.0-75.0); Platelet Count 255 10^3/uL (150-450); Red Blood Count 4.58 10^6/uL (4.20-5.40); Red Cell Distribution Width 14.4 % (11.0-15.0); White Blood Count 6.5 10^3/uL (4.0-11.0)
[2024-03-22 13:11] LABS: Alanine Aminotransferase 18 U/L (14-59); Albumin Globulin Ratio 1.2; Albumin Level 3.6 g/dL (3.4-5.0); Alkaline Phosphatase 71 U/L (46-116); Anion Gap 13.3; Aspartate Amino Transferase 15 U/L (15-37); BUN Creatinine Ratio 16.5; Bilirubin Total 0.5 mg/dL (0.2-1.0); C Reactive Protein <0.50 mg/dL (<=0.50); Calcium 8.9 mg/dL (8.5-10.1); Carbon Dioxide 28.6 mmol/L (21.0-32.0); Chloride 105 mmol/L (98-107); Erythrocyte Sedimentation Rate 5 mm/hr (<=30); Estimated GFR (African America >60 (>=60 mL/min/1.73m^2); Estimated GFR (Non-African Ame 59 (>=60 mL/min/1.73m^2); Glucose 114 mg/dL (74-106); Potassium 3.9 mmol/L (3.5-5.1); Sodium 143 mmol/L (136-145); Total Protein 6.6 g/dL (6.4-8.2); Vancomycin Trough 13.7 ug/mL (5.0-20.0)
== END 2024-03-22 12:06 | disposition home or self-care (01) ==
LOC: LAB 12:05
PROVIDERS: PCP Internal Medicine; Visit Provider Internal Medicine
DX: L02.416 Cutaneous abscess of left lower limb (principal)
CPT/HCPCS: 36415; 80053; 80202; 85025; 85652; 86140

== ENCOUNTER 2024-03-29 11:17 | Outpatient (OUT) | payer MEDICARE, SELFPAY ==
--- NOTE | 2024-03-29 | XR_ITS ---
The [address] [address] Patient Name: ASHLYN CHIN MRN: [id number] date: 1945 Sex: F Assigned Patient Location: Current Patient Location: Accession/Order Number: [id number] Exam Date: 03/29/2024 12:05 Report Date: 03/29/2024 15:37 At the request of: CAROLINE ENCISO Procedure: XR hip LT 2V w/ pelvis HISTORY: Left hip pain. Pelvic pain. XR hip LT 2V w/ pelvis: 03/29/2024 12:05 PM EST COMPARISON: Radiographs of the left hip 02/21/2024. 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 No acute fracture or dislocation is identified. There is a stable and appropriate appearance of a left hip femoral hemiarthroplasty prosthesis. No lucency is seen adjacent to the prosthesis. No dislocation. XR/XR hip LT 2V w/ pelvis IMPRESSION: Stable and appropriate appearance of a left hip hemiarthroplasty prosthesis without evidence of hardware complication, fracture or dislocation. Electronically authenticated by: HARRIETT MOORE Date: 03/29/2024 15:37
== END 2024-03-29 11:18 | disposition home or self-care (01) ==
LOC: EC 11:18
PROVIDERS: PCP Internal Medicine; Visit Provider Orthopaedic Surgery
DX: S72.002D Fracture of unspecified part of neck of left femur, subsequent encounter for closed fracture with routine healing (principal); Z96.642 Presence of left artificial hip joint
CPT/HCPCS: 73502

== ENCOUNTER 2024-05-10 10:14 | Outpatient (OUT) | payer MEDICARE, SELFPAY ==
--- NOTE | 2024-05-10 10:14 | XR_ITS ---
The [place] [id number] Patient Name: ASHLYN CHIN MRN: [id number] date: 1945 Sex: F Assigned Patient Location: Current Patient Location: Accession/Order Number: [id number] Exam Date: 05/10/2024 11:22 Report Date: 05/10/2024 11:27 At the request of: CAROLINE ENCISO MD Procedure: XR hip LT 2V w/ pelvis LEFT HIP WITH AP PELVIS - 3 views COMPARISON: 02/21/2024 CLINICAL DATA: Follow up hip replacement. Weight-bearing AP view of the pelvis as well as AP and frog-lateral views of the left hip were obtained. There is osteopenia. A left hip prosthesis is again visualized. The hardware appears intact and in appropriate position. No developing fracture or dislocation is identified. The right hip joint space is maintained. There is sclerosis at the SI joints and mild degenerative change at the imaged lumbosacral junction. No soft tissue abnormalities are present. XR/XR hip LT 2V w/ pelvis IMPRESSION: STABLE LEFT HIP PROSTHESIS. OSTEOPENIA. NO ACUTE BONY FINDINGS. Impression dictated by: Jennifer Jon M.D.05/10/2024 11:27 AM Dictation Location: [place] [address] Electronically authenticated by: [id number] Y Date: 05/10/2024 11:27
--- OUTSIDE RECORDS SUMMARY | 2024-05-10 10:20 | XMS_ITS | CCD ---
Author Organization [facility] Care Team Providers Care Manager Contract Name Role Phone SHAW FRANCOIS Unavailable Unavailable FRANCOIS, SHAW Unavailable Unavailable FRANCOIS, SHAW Unavailable Unavailable FRANCOIS, SHAW Unavailable Unavailable Francois, II Shaw Primary Care Provider [phone] DO Naya Weber Attending Provider Shaw Francois II Primary Care Provider ABHYANKAR, GARRETT Admitting Unavailable LEIGH ANN, GARRETT Attending Unavailable DR SHAW FRANCOIS Primary Care Unavailable WARREN, DR NAYA Lewis Consulting Unavailable ABHYANKAR, GARRETT Consulting Unavailable Shaw Francois II Primary Care Provider ABHYANKAR, GARRETT Attending Unavailable ABCHARITYANKAR, GARRETT Referring Unavailable SHAW FRANCOIS II Primary Care Unavailable ABHYANKAR, GARRETT Referring Unavailable SHAW FRANCOIS II Primary Care Unavailable Alessandro II Shaw Primary Care Provider [phone] MD Jeevan Sanchez II Attending Provider DEBI Chaparro Other Provider Unavailable DEBI Anderson Other Provider Unavailable DEBI Orona Other Provider Unavailable DEBI Farfan Other Provider Unavailable DEBI Velasco Other Provider Unavailable MD Daryn Rowland Other Provider DO Amy Zacarias Other Provider [phone] MD Rufino Valdovinos Other Provider [phone] DO Trevor Bloom Other Provider MD Edmund Palencia Other Provider [phone] MD Moriah Torre Other Provider [phone] MD Donovan Jordan Other Provider Unavailable DAWN [...] Provider DO Mayda Disla Other Provider MD Bonilla Lozada P Other Provider MD Vargas Ambriz Other Provider MallorySERAN Allison Other Provider MD Merrick Cheng Other Provider MD Neeraj Pham Other Provider DEBI Thornton Other Provider Unavailable MD Vinnie Yin Other Provider MARIA ELENA Francois Primary Care Provider MD Jeevan Sanchez II Attending Provider [phone] MARIA ELENA Francois Primary Care Provider MD Jeevan Sanchez II Attending Provider Shaw Francois MD Primary Care Provider [phone] Shaw Francois MD Unavailable MARIA ELENA Francois Primary Care Provider MD Jeevan Sanchez II Attending Provider Shaw Oconnor MD Primary Care Provider CAROLINE SHORE Referring Unavailable SHAW OCONNOR Primary Care Unavailable SHAW OCONNOR Primary Care Unavailable CAROLINE SHORE Referring Unavailable Shaw Francois II Primary Care Provider Jeevan Sanchez MD Attending Provider Daniel ARREDONDO, Jeevan Rayo Admitting Unavailabl e Shaw Francois Primary Care Unavailable [place] II, Jeevan Rayo Attending Unavailabl e [place] II, Jeevan Rayo Attending Unavailabl e FrancoisShaw Primary Care Unavailable [place] II, Jeevan Rayo Admitting Unavailabl e [place] II, Jeevan Rayo Attending Unavailabl e [place] II, Jeevan Rayo Admitting Unavailabl e FrancoisShaw Primary Care Unavailable [place] MARIA ELENA, Jeevan Rayo Attending Unavailabl e [place] II, Jeevan Rayo Admitting Unavailabl e FrancoisShaw Primary Care Unavailable [place] II, Jeevan Rayo Attending Unavailabl e [place] II, Jeevan Rayo Admitting Unavailabl e FrancoisShaw Primary Care Unavailable Nancy Chaparro Consulting Unavailable Samantha Adnerson Consulting Unavailable Naila Orona Consulting Unavailable Ada Farfan Consulting Unavailable Huyen Velasco Consulting Unavailable Daryn Rowland Consulting Unavailable Amy Zacarias Consulting Unavailable Rufino Valdovinos Consulting Unavailable Trevor Bloom Consulting UnavailEdmund Gregory Consulting Unavailable Moriah Torre Consulting Unavailable Donovan Jordan Consulting Unavailable Halle Salmeron Consulting Unavailabl e WasGm talavera Consulting Unavailable Fabricio Gagnon Consulting Unavailable Makenna Terrazas Consulting Unavailable Gunnar Barone Consulting Unavailable Toy Prince Consulting Unavailable Jeremi Gaytan Consulting Unavailable Prakash Bañuelos Consulting Unavailable Yasmin Lyons Consulting Unavailable Angelica Granger Consulting Unavailable Saulo Vee Consulting UnavailMian Barron Consulting Unavailable Ashok Lozada Consulting Unavailable Anastasiia Cortez Consulting Unavailable Maik Quinteros Consulting Unavailable Lesli Garcia Consulting Unavailable Ferdinand Osorio Consulting Unavailable Carlota Paige Consulting Unavailable Klaus Hennessy Consulting Unavailable ReneomaJamie clarke Consulting Unavailable Kim Boyd Consulting Unavailable Sera Benjamin Consulting Unavailable Alahmad Alaa Consulting Unavailable Shaw Coronado Consulting Unavailable Yovani Quintana Consulting Unavailable Mayda Disla Consulting Unavailable Bonilla Lozada Consulting Unavailable Vargas Ambriz Consulting Unava ilable Allison Tejada Consulting Unavailable ProsperMerrick morrell Consulting Unavailable Neeraj Pham Consulting Unavailable Sofía Thornton Consulting Unavailable Vinnie Yin Consulting Unavailable Jeevan Sanchez II Attending Unavailabl e [place] II, Jeevan Rayo Admitting Unavailabl e Shaw Francois Primary Care Unavailable [place] II, Jeevan Rayo Attending Unavailabl e [place] II, Jeevan Rayo Admitting Unavailabl e Shaw Francois Primary Care Unavailable Daniel ARREDONDO, Jeevan Rayo Admitting Unavailabl e Shaw Francois Primary Care Unavailable Daniel ARREDONDO, Jeevan Rayo Attending Unavailabl e [place] II, Jeevan Rayo Attending Unavailabl e Daniel II, Jeevan Rayo Admitting Unavailabl e Shaw Francois Primary Care Unavailable SHAW FRANCOIS Attending Unavailable ABHILASH CALI Attending Unavailable SHAW FRANCOIS Attending Unavailable SHAW FRANCOIS Attending Unavailable JACKIE PERSAUD Attending Unavailable MARQUIS, FRANNIE Referring Unavailable KELBLEY, ANTONETTE Attending Unavailable MARQUIS, FRANNIE Referring Unavailable BLACKSTON, JACKIE T Attending Unavailable MARQUIS, FRANNIE Referring Unavailable KELBLEY, ANTONETTE Attending Unavailable MARQUIS, FRANNIE Referring Unavailable ANNETTETONI PILO Attending Unavailable MARQUIS, FRANNIE Referring Unavailable KELBLEY, ANTONETTE Attending Unavailable MARQUIS, FRANNIE Referring Unavailable KELBLEY, ANTONETTE Attending Unavailable MARQUIS, FRANNIE Referring Unavailable KELBLEY, ANTONETTE Attending Unavailable MARQUIS, FRANNIE Referring Unavailable KELBLEY, ANTONETTE Attending Unavailable MARQUIS, FRANNIE Referring Unavailable KELBLEY, ANTONETTE Attending Unavailable MARQUIS, FRANNIE Referring Unavailable KELBLEY, ANTONETTE Attending Unavailable MARQUIS, FRANNIE Referring Unavailable KELBLEY, ANTONETTE Attending Unavailable MARQUIS, FRANNIE Referring Unavailable BLACKSTON, JACKIE T Attending Unavailable MARQUIS, FRANNIE Referring [...] ANTIBIOTICS)] Drug Allergy 2 Rash, Swelling, Unknown [facility] Work Phone: (1 source) Sulfonamides (Antibiotic) Drug allergy (disorder) 6 [facility] Repository (20 sources) Nitrofurantoin Drug Allergy 1 Unknown [facility] (1 source) Sulfonamides (Antibiotic) Drug allergy (disorder) 5 [facility] Repository Medications Current Medications Medication Drug Class(es) [...] Acetaminophen Active 1000 MG PO Q8H 180 August 21, 2023 12:00am do not reconcile until DOS: 09/01/2023 med to bed Start: 08-18-2023 End: 04-12-2024 take 2 tablets by mouth every eight hours Acetaminophen 500 mg tablet Discontinued 1000 MG PO Q8H 180 August 20, 2023 11:00pm April 12, 2024 12:14pm do not reconcile until DOS: 09/01/2023 med to bed acetaminophen 325 mg / HYDROcodone bitartrate 5 mg oral tablet (6 sources) Opioid Agonist Start: 02-02-2024 End: 02-08-2024 take 1 tablet by mouth every six hours for pain HYDROcodone-acetaminophen ([place]) 5-325 MG tablet Indications: Closed fracture of left hip with routine healing, subsequent encounter Take 1 tablet by mouth every 6 (six) hours if needed for severe pain for up to 5 days 20 tablet 02/03/2024 02/08/2024 Active cefTRIAXone 100 mg/ml injectable solution (6 sources) Cephalosporin Antibacterial Start: 03-02-2024 cefTRIAXone (Rocephin) 10 g 03/02/2024 Active cholecalciferol 0.01 mg oral capsule (20 sources) Vitamin D Start: 05-22-2021 take 1 capsule by mouth once daily Cholecalciferol (Vitamin D3) (Vitamin D3) 10 mcg (400 unit) Capsule Active 10 MCG PO Daily May 21, 2021 11:00pm Start: 05-22-2021 take 1 capsule by mo [...] tablet Active 125 MCG PO Daily May 21, 2021 11:00pm Comment on above: Take 125 mcg by mout h once daily. losartan potassium 25 mg oral tablet (20 sources) Angiotensin 2 Receptor Teri Start: 02-09-20 take 1 tablet by mouth once daily in the morning Losartan 25 mg tablet Active 25 MG PO Every morning May 21, 2021 11:00pm Comment on above: Take 25 mg by mouth once daily. Multiple Vitamins-Minerals (CENTRUM SILVER ULTRA WOMENS PO) (20 sources) Multiple Vitamins-Minerals (CENTRUM SILVER ULTRA WOMENS PO) Centrum Silver Active Multivitamin-Minerals- Lutein (14 sources) Start: 05-23-19 take 1 tablet by mouth once daily Multivitamin-Minerals -Lutein Active 1 TAB PO Daily May 22, 2021 12:00am Multivitamin-Minerals- Lutein Tablet (2 sources) Start: 05-23-19 take 1 tablet by mouth once daily Multivitamin-Minerals -Lutein Tablet Active 1 TAB PO Daily May 21, 2021 11:00pm sertraline 100 mg oral tablet (20 sources) Serotonin Reuptake Inhibitor Start: 04-11-19 24 End: 02-02-20 24 take 0.5 tablet by mouth once daily sertraline (Zoloft) 100 MG tablet Indications: Depressive disorder (CMS/HCC) Take 0.5 tablets (50 mg) by mouth Daily 45 tablet 3 02/02/2024 Active Start: 05-22-2021 Sertraline 100 mg tablet Active 50 MG PO Every morning May 21, 2021 11:00pm Start: 05-22-2021 take 50 mg by mouth [...] Vancomycin HCl in NaCl 1.5-0.9 GM/250ML-% solution (6 sources) Start: 03-02-2024 Vancomycin HCl in NaCl 1.5-0.9 GM/250ML-% solution Infuse 1.5 g into a venous catheter 1 (one) time each day at the same time X 4 weeks Delivered by [facility] Care 03/02/2024 Active Completed/Discontinued Medications Medication Drug Class(es) Dates Sig (Normalized) Sig (Original) aspirin 81 mg delayed release oral tablet (12 sources) Platelet Aggregation Inhibitor, Nonsteroidal Anti-inflammatory Drug Start: 08-21-2023 End: 04-12-2024 take 1 tablet by mouth twice daily Aspirin 81 mg tablet,delayed release (DR/EC) Discontinued 81 MG PO Twice daily 70 35 August 20, 2023 11:00pm April 12, 2024 12:14pm do not reconcile until DOS: 09/01/2023 med to bed azithromycin 250 mg oral tablet (15 sources) Macrolide Antimicrobial Start: 07-17-2023 End: 08-18-2023 Azithromycin 250 mg tablet Discontinued 500 MG PO July 16, 2023 11:00pm August 18, 2023 9:18am Start: 07-17-2023 End: 08-18-2023 Azithromycin Discontinued 50 0 MG PO July 17, 2023 12:00am August 18, 2023 10:18am cefadroxil 500 mg oral capsule (12 sources) Cephalosporin Antibacterial Start: 08-21-2023 End: 04-12-2024 take 1 capsule by mouth every twelve hours Cefadroxil 500 mg capsule Discontinued 500 MG PO Q12H 14 7 August 20, 2023 11:00pm April 12, 2024 12:13pm do not reconcile until DOS: 09/01/2023 med to bed docusate sodium 50 mg / sennosides, skilled nursing 8.6 mg oral tablet (12 sources) Start: 08-21-2023 End: 10-15-2023 take 2 tablets by mouth once daily Sennosides-Docusat e Sodium (Senokot-S) 8.6-50 mg tablet Discontinued 2 TAB PO daily 60 30 August 20, 2023 11:00pm October 15, 2023 1:43pm do not reconcile until DOS: 09/01/2023 med to bed Multivitamins-Min erals-Lutein (CENTRUM SILVER) ORAL Tab (1 source) Start: 04-17-2011 take 1 tablet by mouth once daily Multivitamins-Mine rals-Lutein (CENTRUM SILVER) ORAL Tab Take 1 tablet by mouth once daily. 90 tablet 4 04/17/2011 Active Comment on above: Take 1 tablet by maria de jesus th once daily. Multivitamins-Min erals-Lutein (CENTRUM SILVER) tab (1 source) Start: 04-17-2011 take 1 tablet by mouth once daily Multivitamins-Mine rals-Lutein (CENTRUM SILVER) tab Take 1 tablet by mouth once daily. 90 tablet 4 04/17/2011 Active Comment on above: Take 1 tablet by maria de jesus th once daily. naproxen sodium 220 mg oral capsule (13 sources) Nonsteroidal Anti-inflammatory Drug Start: 08-18-2023 End: 04-12-2024 take 1 capsule by mouth twice daily as needed for pain Naproxen Sodium (Aleve) 220 mg capsule Discontinued 220 MG PO Twice daily as needed for pain August 17, 2023 11:00pm April 12, 2024 12:14pm On Hold: Resume on 10/02/23. omeprazole 40 mg delayed release oral capsule (18 sources) Proton Pump Inhibitor Start: 06-26-2023 End: 04-12-2024 take 1 capsule by mouth once daily in the morning Omeprazole 40 mg capsule,delayed release(DR/EC) Discontinued 1 CAP PO Every morning June 25, 2023 11:00pm April 12, 2024 12:14pm [employer] CAPSULE Orally bid; Note: Source Status: Start; Refills: 11; Qty: 60 Capsule; Provider: Gus Morrell Start: 06-26-2023 take 1 capsule by mo uth twice daily Omeprazole Active 1 CAP PO Twice daily June 26, 2023 12:00am [employer] CAPSULE Orally bid; Note: Source Status: Start; Refills: 11; Qty: 60 Capsule; Provider: Gus Morrell omeprazole (PRIL OSEC) 20 mg capsule Take 20 mg by mouth once daily. Takes every other day. 0 Active Comment on above: Take 20 mg by mouth once daily. Takes every other day. ondansetron 4 mg oral tablet (12 sources) Serotonin-3 Receptor Antagonist Start: End: take 1 tablet by mouth every eight hours as needed for nausea Ondansetron Hcl 4 mg tablet Discontinued 4 MG PO Q8H as needed for Nausea August 20, 2023 11:00pm October 15, 2023 1:43pm do not reconcile until DOS: 09/01/2023 med to bed oxyCODONE hydrochloride 5 mg oral tablet (12 sources) Opioid Agonist Start: 4 End: take 1 tablet by mouth every four hours as needed for pain Oxycodone 5 mg tablet Discontinued 5 MG PO Q4H as needed for Pain 42 August 21, 2023 September 18, 2023 1:21pm do not reconcile until DOS: 09/01/2023 med to bed polyethylene glycol 3350 79159 mg powder for oral solution (12 sources) Osmotic Laxative Start: 4 End: 4 Polyethylene Glycol 3350 (Miralax) 17 gram/dose powder Discontinued 17 GM PO daily 7 August 20, 2023 11:00pm October 15, 2023 1:43pm 1 packed mixed with 8 ounces of fluid. predniSONE 10 mg oral tablet (12 sources) Start: 4 End: 5 take 1 tablet by mouth once daily Prednisone 10 mg tablet Discontinued 10 MG PO daily 10 August 20, 2023 11:00pm April 12, 2024 12:13pm do not reconcile until DOS: 09/01/2023 med to bed raNITIdine (2 sources) Histamine-2 Receptor Antagonist RANITIDINE HCL (ZANTAC ORAL) Take by mouth. 0 Active Comment on above: Take by mouth. traMADol hydrochloride 50 mg oral tablet (20 sources) Opioid Agonist Start: End: 4 take 1 tablet by mouth every six hours as needed for pain Tramadol 50 mg tablet Discontinued 50 MG PO Q6H as needed for Pain 40 September 18, 2023 1:54pm October 15, 2023 1:43pm Dispense: 40 (Forty) Diagnosis: M17.11 Problems Active Problems Problem Classification Problem Date Documented Date Episodic/Chronic Acquired foot deformities (20 sources) Acquired hammer toe of right foot; Translations: [Other hammer toe(s) (acquired), right foot] Onset: 01-19-2016 09-05-2022 Chronic Cancer of breast (20 sources) Malignant neoplasm of female breast; Translations: [Malignant neoplasm of unspecified site of right female breast] Onset: 04-19-2011 Chronic Complications of surgical procedures or medical care (20 sources) Postoperative hypothyroidism; Translations: [Postprocedural hypothyroidism] Onset: 07-26-2020 09-05-2022 Chronic Complications of surgical procedures or medical care (2 sources) Postoperative wound infection; Translations: [Infection following a procedure, other surgical site, initial encounter] 04-12-2024 Episodic Conduction disorders (20 sources) Right bundle branch [...] right knee] Onset: 12-08-2020 06-26-2023 Chronic Osteoporosis (16 sources) Osteoporosis; Translations: [Age-related osteoporosis without current pathological fracture] Onset: 07-17-2023 07-17-2023 Chronic Other aftercare (20 sources) Patient encounter status; Translations: [Aftercare following joint replacement surgery] 09-17-2023 Chronic Other aftercare (13 sources) Aftercare following joint replacement surgery; Translations: [Aftercare following joint replacement] Onset: 10-15-2023 09-18-2023 Chronic Other aftercare (15 sources) Long-term current use of drug therapy; Translations: [Other jail (current) drug therapy] 07-17-2023 Episodic Other connective tissue disease (9 sources) History of total knee arthroplasty; Translations: [Presence of right artificial knee joint] 09-02-2023 Chronic Other connective tissue disease (18 sources) Presence of right artificial knee joint; Translations: [Knee joint replacement] Onset: 09-01-2023 09-02-2023 Chronic Other lower respiratory disease (1 source) Abnormal breath sounds; Translations: [Other abnormalities of breathing] Episodic Other lower respiratory disease (1 source) Elevated diaphragm; Translations: [Disorders of diaphragm] Episodic Other nervous system disorders (9 sources) Postoperative pain ; Translations: [Other acute postprocedural pain] 09-02-2023 Episodic Other non-traumatic joint disorders (16 sources) Hip pain; Translations: [Pain in left hip] 06-25-2023 Episodic Other non-traumatic joint disorders (14 sources) Stiffness of right knee; Translations: [Stiffness of right knee, not elsewhere classified] 11-11-2023 Episodic Other non-traumatic joint disorders (1 source) Pain in left knee; Translations: [Pain in left knee] Onset: 04-12-2024 Episodic Other screening for suspected conditions (not [...] Onset: 12-08-2014 09-05-2022 Chronic Residual codes; unclassified (2 sources) History of repair of hip joint; Translations: [Other specified postprocedural states] 04-12-2024 Episodic Spondylosis; intervertebral disc disorders; other back problems (20 sources) 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; Translations: [Other cervical disc displacement, unspecified cervical region] Onset: 01-15-2016 09-05-2022 Chronic Thyroid disorders (20 sources) Multinodular goiter; Translations: [Nontoxic multinodular goiter] Onset: 11-30-2018 09-05-2022 Chronic Past or Other Problems Problem Classification Problem Date Documented Da te Episodic/Chronic Administrative/social admission (17 sources) Other reduced mobility; Translations: [Impaired mobility and activities of daily living] Onset: 09-01-2023 09-02-2023 Episodic Cancer of breast (20 sources) History of malignant neoplasm of breast; Translations: [Personal history of malignant neoplasm of breast] Onset: 06-10-2022 Episodic Other aftercare (1 source) 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; Translations: [Other jail (current) drug therapy] Onset: 07-17-2023 Episodic Other bone disease and musculoskeletal deformities (20 sources) Osteopenia; Translations: [Other specified disorders of bone density and structure, unspecified site] Onset: 07-27-2013 07-27-2013 Episodic Other connective tissue disease (20 sources) Muscle pain; Translations: [Myalgia, unspecified site] Onset: 03-19-2023 03-19-2023 Episodic Other nervous system disorders (8 sources) Other acute postprocedural pain; Translations: [Other acute postoperative pain] Onset: 09-01-2023 09-02-2023 Episodic Other non-traumatic joint disorders (20 sources) [...] Translations: [Other amnesia] Onset: 12-10-2017 09-05-2022 Episodic Residual codes; unclassified (1 source) Other specified health status; Translations: [Other specified health status] Onset: 09-01-2023 Episodic Results Test Name Value Interpretation Reference Range Facility X-ray reportOrdered By: Joao Anand on 04-12-2024 Study report [facility] [place] [facility] [place] [address] XRay Report Signed Patient: Nadia Almeida MR#: [id number] : 1945 Acct:[id number] Age/Sex: 78 / F ADM Date: 5 [facility] Room: Type: REG CLI Attending Dr: Jeevan Sanchez II, MD Copies to: Jeevan Sanchez MD~ Ordering Provider: Jeevan Sanchez MD Date of Service: 04/12/24 XR/XR knee LT 4V*: M25.562 - Pain in left knee LEFT KNEE - 4 views CLINICAL HISTORY: Left knee pain for months. COMPARISON: None FINDINGS: Small knee joint effusion. Mild degenerative changes without acute bony process. Mild patellofemoral joint space narrowing. Soft tissue calcification adjacent to the medial patella. XR/XR knee LT 4V* IMPRESSION: MILD DEGENERATIVE CHANGES OF THE LEFT KNEE WITH SMALL JOINT EFFUSION. NO ACUTE BONY PROCESS. Impression dictated by: Vinnie Anand Jr., D.O.04/12/2024 3:41 PM Dictation Location: [place] [address] Transcribed By: [facility] 04/12/24 1541 Dictated By: Vinnie Anand Jr DO 04/12/24 1540 Signed By: 04/12/24 1541 [facility] XR knee LT 4V*on 04-12-2024 XR knee LT 4V* [facility] [place] [facility] [place] [address] XRay Report Signed Patient: Nadia Almeida MR#: [id number] : 1945 Acct:[id number] Age/Sex: 78 / F ADM Date: 04/12/24 Loc: [facility] Room: Type: REG CLI Attending Dr: Jeevan Sanchez II, MD Copies to: Jeevan Sanchez MD Ordering Provider: Jeevan Sanchez MD Date of Service: 04/12/24 XR/XR knee LT 4V*: M25.562 - Pain in left knee LEFT KNEE - 4 views CLINICAL HISTORY: Left knee pain for months. COMPARISON: None FINDINGS: Small knee joint effusion. Mild degenerative changes without acute bony process. Mild patellofemoral joint space narrowing. Soft tissue calcification adjacent to the medial patella. XR/XR knee LT 4V* IMPRESSION: MILD DEGENERATIVE CHANGES OF THE LEFT KNEE WITH SMALL JOINT EFFUSION. NO ACUTE BONY PROCESS. Impression dictated by: Vinnie Anand Jr., D.O.04/12/2024 3:41 PM Dictation Location: [place] [address] Transcribed By: [facility] 04/12/24 1541 Dictated By: Vinnie Anand Jr, DO 04/12/24 1540 Signed By: 04/12/24 1541 Normal [facility] XR Hip - left [address] [place] [address] XRay Report Signed Patient: NADIA ALMEIDA MR#: [id number] : 1945 Acct:[id number] Age/Sex: 78 / F ADM Date: 03/29/24 Loc: Attending Dr: Caroline Shore M.D. Ordering Physician: Caroline Shore M.D. Date of Service: 03/29/24 Procedure(s): XR hip LT 2V w/ pelvis Accession Number(s): [id number] cc: SHAW FRANCOIS ; Caroline Shore M.D. The [place] [address] Patient Name: NADIA ALMEIDA MRN: [id number] date: 1945 Sex: F Assigned Patient Location: Current Patient Location: Accession/Order Number: [id number] Exam Date: 03/29/2024 12:05 Report Date: 03/29/2024 15:37 At the request of: CAROLINE SHORE Procedure: XR hip LT 2V w/ pelvis HISTORY: Left hip pain. Pelvic pain. XR hip LT 2V w/ pelvis: 03/29/2024 12:05 PM EST COMPARISON: Radiographs of the left hip 02/21/2024. 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 No acute fracture or dislocation is identified. There is a stable and appropriate appearance of a left hip femoral hemiarthroplasty prosthesis. No lucency is seen adjacent to the prosthesis. No dislocation. XR/XR hip LT 2V w/ pelvis IMPRESSION: Stable and appropriate appearance of a left hip hemiarthroplasty prosthesis without evidence of hardware complication, fracture or dislocation. Electronically authenticated by: HARRIETT GANDHI Date: 03/29/2024 15:37 Dictated By: Harriett Gandhi M.D. Signed By: 03/29/24 1540 DD/ 1537 TD/TT: Baggage Agent Supervisor: [facility] Radiology, Radiologi MD juan - 03/29/2024 [place] [address] XRay Report Signed Patient: NADIA ALMEIDA MR#: [id number] : 1945 Acct:[id number] Age/Sex: 78 / F ADM Date: 03/29/24 Loc: Attending Dr: Caroline Shore M.D. Ordering Physician: Caroline Shore M.D. Date of Service: 03/29/24 Procedure(s): XR hip LT 2V w/ pelvis Accession Number(s): [id number] cc: SHAW FRANCOIS ; Caroline Shore M.D. [facility] [place] [address] Patient Name: NADIA ALMEIDA MRN: [facility]:[id number] date: 1945 Sex: F Assigned Patient Location: Current Patient Location: Accession/Order Number: [id number] Exam Date: 03/29/2024 12:05 Report Date: 03/29/2024 15:37 At the request of: CAROLINE SHORE Procedure: XR hip LT 2V w/ pelvis HISTORY: Left hip pain. Pelvic pain. XR hip LT 2V w/ pelvis: 03/29/2024 12:05 PM EST COMPARISON: Radiographs of the left hip 02/21/2024. 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 No acute fracture or dislocation is identified. There is a stable and appropriate appearance of a left hip femoral hemiarthroplasty prosthesis. No lucency is seen adjacent to the prosthesis. No dislocation. XR/XR hip LT 2V w/ pelvis IMPRESSION: Stable and appropriate appearance of a left hip hemiarthroplasty prosthesis without evidence of hardware complication, fracture or dislocation. Electronically authenticated by: HARRIETT GANDHI Date: 03/29/2024 15:37 Dictated By: Harriett Gandhi M.D. 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: [facility] Radiology Study observation (narrative) [facility] XR Hip - left 3 ViewsOrdered By: Radiologist Radiology on 03-29-2024 [facility] Work Phone: ALL CBC WITH AUTO DIFFon BASOPHILS ABSOLUTE AUTO 0.1 [facility] Basophils/100 WBC (Bld) 1.5 % 0.2 - 2.0 % [facility] Eosinophils/100 WBC (Bld) 7.9 % High 0.9 - 7.0 % [facility] Erythrocyte distribution width (RBC) [Ratio] 14.4 % 11.0 - 15.0 % [facility] Hematocrit (Bld) [Volume fraction] 40.3 % 36.0 - 48.0 % [facility] Hemoglobin (Bld) [Mass/Vol] 13.5 g/dL 12.0 - 16.0 g/dL [facility] IMMATURE GRANULOCYTES ABS AUTO 0.01 [facility] Immature granulocytes/100 WBC (Bld) 0.2 % 0.0 - 0.5 % [facility] Interpretation and review of laboratory results Abnormal [facility] LYMPHOCYTES ABSOLUTE AUTO 1.8 [facility] Lymphocytes/100 WBC (Bld) 28 % 20.5 - 60.0 % [facility] MCH (RBC) [Entitic mass] 29.5 pg 26.7 - 34.0 pg [facility] MCHC (RBC) [Mass/Vol] 33.5 g/dL 29.9 - 35.2 g/dL [facility] MCV (RBC) [Entitic vol] 88 fL 81.0 - 99.0 fL [facility] MONOCYTES ABSOLUTE AUTO 0.4 [facility] Monocytes/100 WBC (Bld) 6.5 % 1.7 - 12.0 % [facility] NEUTROPHILS ABSOLUTE AUTO 3.6 [facility] Neutrophils/100 WBC (Bld) 55.9 % 43.0 - 75.0 % [facility] Platelet mean volume (Bld) [Entitic vol] 9.6 fL 9.5 - 13.5 fL [facility] TBH EO # 0.5 [facility] PLT 255 [facility] RBC 4.58 [facility] WBC 6.5 [facility] NURSE DROP OFF [facility] ALL CBC WITH AUTO DIFFon BASOPHILS ABSOLUTE AUTO 0.1 [facility] Basophils/100 WBC (Bld) 1.9 % 0.2 - 2.0 % [facility] Eosinophils/100 WBC (Bld) 8.2 % High 0.9 - 7.0 % [facility] Erythrocyte distribution width (RBC) [Ratio] 14.2 % 11.0 - 15.0 % [facility] Hematocrit (Bld) [Volume fraction] 36.3 % 36.0 - 48.0 % [facility] Hemoglobin (Bld) [Mass/Vol] 12 g/dL 12.0 - 16.0 g/dL [facility] IMMATURE GRANULOCYTES ABS AUTO 0.01 [facility] Immature granulocytes/100 WBC (Bld) 0.2 % 0.0 - 0.5 % [facility] Interpretation and review of laboratory results Abnormal [facility] LYMPHOCYTES ABSOLUTE AUTO 1.5 [facility] Lymphocytes/100 WBC (Bld) 27.5 % 20.5 - 60.0 % [facility] MCH (RBC) [Entitic mass] 29.4 pg 26.7 - 34.0 pg [facility] MCHC (RBC) [Mass/Vol] 33.1 g/dL 29.9 - 35.2 g/dL [facility] MCV (RBC) [Entitic vol] 89 fL 81.0 - 99.0 fL [facility] MONOCYTES ABSOLUTE AUTO 0.3 [facility] Monocytes/100 WBC (Bld) 6.1 % 1.7 - 12.0 % [facility] NEUTROPHILS ABSOLUTE AUTO 3 [facility] Neutrophils/100 WBC (Bld) 56.1 % 43.0 - 75.0 % [facility] Platelet mean volume (Bld) [Entitic vol] 10 fL 9.5 - 13.5 [facility]L [facility] TB PLT 229 [facility] RBC 4.08 Low [facility] WBC 5.3 [facility] ALL CBC WITH AUTO DIFFon BASOPHILS ABSOLUTE AUTO 0.1 [facility] Basophils/100 WBC (Bld) 1.6 % 0.2 - 2.0 % [facility] Eosinophils/100 WBC (Bld) 3.9 % 0.9 - 7.0 % [facility] Erythrocyte distribution width (RBC) [Ratio] 14.1 % 11.0 - 15.0 % [facility] Hematocrit (Bld) [Volume fraction] 33.3 % Low 36.0 - 48.0 % [facility] Hemoglobin (Bld) [Mass/Vol] 11 g/dL Low 12.0 - 16.0 g/dL [facility] IMMATURE GRANULOCYTES ABS AUTO 0.03 [facility] Immature granulocytes/100 WBC (Bld) 0.4 % 0.0 - 0.5 % [facility] Interpretation and review of laboratory results Abnormal [facility] LYMPHOCYTES ABSOLUTE AUTO 1.8 [facility] Lymphocytes/100 WBC (Bld) 23.5 % 20.5 - 60.0 % [facility] MCH (RBC) [Entitic mass] 29.6 pg 26.7 - 34.0 pg [facility] MCHC (RBC) [Mass/Vol] 33 g/dL 29.9 - 35.2 g/dL [facility] MCV (RBC) [Entitic vol] 89.5 fL 81.0 - 99.0 fL [facility] MONOCYTES ABSOLUTE AUTO 0.6 [facility] Monocytes/100 WBC (Bld) 7.8 % 1.7 - 12.0 % [facility] NEUTROPHILS ABSOLUTE AUTO 4.7 [facility] Neutrophils/100 WBC (Bld) 62.8 % 43.0 - 75.0 % [facility] Platelet mean volume (Bld) [Entitic vol] 9.2 fL Low 9.5 - 13.5 fL [facility] PLT 285 [facility] RBC 3.72 Low [facility] WBC 7.5 [facility] ALL CBC WITH AUTO DIFFon BASOPHILS ABSOLUTE AUTO 0.1 [facility] Basophils/100 WBC (Bld) 1.3 % 0.2 - 2.0 % [facility] Eosinophils/100 WBC (Bld) 3.2 % 0.9 - 7.0 % [facility] Erythrocyte distribution width (RBC) [Ratio] 13.5 % 11.0 - 15.0 % [facility] Hematocrit (Bld) [Volume fraction] 31.3 % Low 36.0 - 48.0 % [facility] Hemoglobin (Bld) [Mass/Vol] 10.5 g/dL Low 12.0 - 16.0 g/dL [facility] IMMATURE GRANULOCYTES ABS AUTO 0.02 [facility] Immature granulocytes/100 WBC (Bld) 0.3 % 0.0 - 0.5 % [facility] Interpretation and review of laboratory results Abnormal [facility] LYMPHOCYTES ABSOLUTE AUTO 1.6 [facility] Lymphocytes/100 WBC (Bld) 21 % 20.5 - 60.0 % [facility] MCH (RBC) [Entitic mass] 29.8 pg 26.7 - 34.0 pg [facility] MCHC (RBC) [Mass/Vol] 33.5 g/dL 29.9 - 35.2 g/dL [facility] MCV (RBC) [Entitic vol] 88.9 fL 81.0 - 99.0 fL [facility] MONOCYTES ABSOLUTE AUTO 0.4 [facility] Monocytes/100 WBC (Bld) 5.6 % 1.7 - 12.0 % [facility] NEUTROPHILS ABSOLUTE AUTO 5.3 [facility] Neutrophils/100 WBC (Bld) 68.6 % 43.0 - 75.0 % [facility] Platelet mean volume (Bld) [Entitic vol] 9.3 fL Low 9.5 - 13.5 fL [facility] TBH EO # 0.3 [facility] TB PLT 241 [facility] RBC 3.52 Low [facility] TB WBC 7.7 [facility] XR HIP 2-3 VW W PELVIS LEFTo n 01-16-2024 XR HIP 2-3 VW W PELVIS LEFT EXAM: XR HIP 2-3 VW W PELVIS LEFT HISTORY: Closed fracture of neck of left femur, initial encounter ([facility]) COMPARISON: 12/26/2023, Raphael. IMPRESSION: FINDINGS/IMPRESSION: 1. Skin neptali remain. 2. 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 3. Anatomic alignment. 4. No hardware failure, fracture, or dislocation. Interpreted by: Reza Hennessy Jr., MD Signed by: Reza Hennessy Jr., MD 01/16/24 Final result Normal [facility] XR Pelvis and Hip - left 2 V iewson 01-16-2024 FINDINGS/IMPRESSION: 1. Skin neptali remain. 2. 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 3. Anatomic alignment. 4. No hardware failure, fracture, or dislocation. [facility] CONSOLIDATED EXAM: XR HIP 2-3 VW W PELVIS LEFT HISTORY: Closed fracture of neck of left femur, initial encounter ([facility]) COMPARISON: 12/26/2023, [place]. [facility] CON[facility] Reza Hennessy Jr., MD - 01/16/2024 EXAM: XR HIP 2-3 VW W PELVIS LEFT HISTORY: Closed fracture of neck of left femur, initial encounter ([facility]) COMPARISON: 12/26/2023, [place]. IMPRESSION: FINDINGS/IMPRESSION: 1. Skin neptali remain. 2. 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 3. Anatomic alignment. 4. No hardware failure, fracture, or dislocation. [facility] Radiology Study observation (narrative) [facility] XR Pelvis and Hip - left 2 V iewsOrdered By: Reza Hennessy on 01-16-2024 [facility] Work Phone: Laboratory - Microbiology an d [...] Bacteria identified Cx Nom (U) [facility] at[facility] Bacteria identified Cx Nom (U) [address] [place] [address] [phone] [facility] Bacteria identified Cx Nom (U) Commissioner Conservation Of Resources: Kendell Teague PhD, Phone: [phone] [facility] Bacteria identified Cx Nom (U) [...] RT 2V*on 11-25-2023 XR femur RT 2V* [facility] [address] [place] [address] XRay Report Signed Patient: Nadia Almeida MR#: [id number] : 1945 Acct:[id number] Age/Sex: 78 / F ADM Date: 11/25/23 Loc: [facility] Room: Type: [facility] Attending Dr: Jeevan Sanchez II, MD Copies to: Jeevan Sanchez MD Ordering Provider: Jeevan Sanchez MD Date of Service: 11/25/23 XR/XR femur RT 2V*: Z47.1 - Aftercare following joint replacement surgery ([id number]) XR/XR tibia fibula RT 2V*: Z47.1 - Aftercare following joint replacement surgery ([id number]) XR/XR knee RT 2V: Z47.1 - Aftercare [...] Jennifer Jon M.D.11/25/2023 5:49 PM Dictation Location: [facility]10 Transcribed By: MATIAS 11/25/23 174 Dictated By: Jennifer Jon MD 11/25/23 174 Signed By: 11/25/231748 Normal [facility] XR knee RT 3V - NOT FOR ER U [facility] 10-15-2023 XR knee RT 3V - NOT FOR ER USE [facility] [address] [place] [address] XRay Report Signed Patient: Nadia Almeida MR#: [id number] : 1945 Acct:[id number] Age/Sex: 77 / F ADM Date: 10/15/23 Loc: [facility] Room: Type: [facility] Attending Dr: Jeevan Sanchez II, MD [...] Ashwin Brown M.D.10/15/2023 3:57 PM Dictation Location: [facility]07 Transcribed By: MATIAS 10/15/23 1557 Dictated By: Ashwin Brown II, MD 10/15/23 1556 Signed By: 10/15/23 1557 Normal [facility] Automated basophil %Ordered By: Jeevan Sanchez on 09-02-2023 Basophils/100 WBC (Bld) 0.3 % Normal . [facility] Comment on above: Performed By: #### LASHAWN MALIK NA #### [address] Automated basophil countOrde red By: Jeevan Sanchez on 09-02-2023 Basophils (Bld) [#/Vol] 0.0 10*3/uL Normal 0.0-0.2 [facility] Comment on above: Result Comment: PERF ORMED BY: [place] [address] PATHOLOGIST HOME HEALTH TRAVEL OT CAMILO SEBASTIAN M.D. Performed By: #### JIAN MALIKRAW NA #### [address] Automated blood monocyte cou ntOrdered By: Jeevan Sanchez on 09-02-2023 Monocytes (Bld) [#/Vol] 0.7 10*3/uL Normal 0.0-0.8 [facility] Comment on above: Performed By: #### LASHAWN MALIK NA #### [address] Automated eosinophil %Ordere d By: Jeevan Sanchez on 09-02-2023 Eosinophils/100 WBC (Bld) 0.8 % Normal . [facility] Comment on above: Performed By: #### LASHAWN MALIK NA #### [address] Automated eosinophil countOr dered By: Jeevan Sanchez on 09-02-2023 Eosinophils (Bld) [#/Vol] 0.1 10*3/uL Normal 0.0-0.45 [facility] Comment on above: Performed By: #### LASHAWN MALIK NA #### [address] Automated monocyte %Ordered By: Jeevan Sanchez on 09-02-2023 Monocytes/100 WBC (Bld) 6.3 % Normal . [facility] Comment on above: Performed By: #### LASHAWN MALIK #### [address] Automated neutrophil %Ordere d By: Jeevan Sanchez on 09-02-2023 Neutrophils/100 WBC (Bld) 77.9 % Normal . [facility] Comment on above: Performed By: #### LASHAWN MALIK NA #### [address] Basic Metabolic Panelon 08-11 Creatinine Clr Calc Pharmacy 62.04 Normal [facility] Comment on above: Result Comment: PERF ORMED BY: [place] [address] PATHOLOGIST HOME HEALTH TRAVEL OT CAMILO SEBASTIAN M.D. Performed By: #### LASHAWN MALIK #### [address] GFR/1.73 sq M.predicted MDRD (S/P/Bld) [Vol rate/Area] mL/min/{1.73_m2} Normal [facility] Comment on above: Performed By: #### LASHAWN MALIK NA #### [address] Calcium [Mass/volume] in Ser um or PlasmaOrdered By: Jeevan Sanchez on 09-02-2023 Calcium [Mass/Vol] 8.5 mg/dL Low 8.6-10.3 [facility] Comment on above: Performed By: #### LASHAWN MALIK NA #### [address] Carbon dioxide, total [Moles /volume] in Serum or PlasmaOrdered By: Jeevan Sanchez on 09-02-2023 CO2 [Moles/Vol] 28.5 mmol/L Normal 21.0-31.0 [facility] Comment on above: Performed By: #### LASHAWN MALIK #### [address] Chloride [Moles/volume] in S liudmila or PlasmaOrdered By: Jeevan Sanchez on 09-02-2023 Chloride [Moles/Vol] 106 mmol/L Normal 98-107 [facility] Comment on above: Performed By: #### LASHAWN MALIK NA #### [address] Complete Blood Count Auto Di ffon 09-02-2023 Mean Corpuscular HGB Conc 35.3 g/dL High 32.0-35.0 [facility] Comment on above: Performed By: #### LASHAWN MALIK NA #### [address] NRBC% 0.1 /100{WBC} Normal 0-0.5 [facility] Comment on above: Performed By: #### LASHAWN MALIK NA #### [address] Creatinine [Mass/volume] in Serum or PlasmaOrdered By: Jeevan Sanchez on 09-02-2023 Creatinine [Mass/Vol] 0.79 mg/dL Normal 0.60-1.20 [facility] Comment on above: Performed By: #### LASHAWN MALIK NA #### [address] Erythrocyte distribution wid th [Ratio] by Automated countOrdered By: Jeevan Sanchez on 09-02-2023 Erythrocyte distribution width (RBC) [Ratio] 14.0 % Normal 11.9-15.3 [facility] Comment on above: Performed By: #### LASHAWN MALIK NA #### [address] Erythrocytes [#/volume] in B lood by Automated countOrdered By: Jeevan Sanchez on 09-02-2023 RBC (Bld) [#/Vol] 4.09 10*6/uL Normal 3.60-5.00 [facility] Comment on above: Performed By: #### LASHAWN MALIK #### [address] Glucose [Mass/volume] in Ser um or PlasmaOrdered By: Jeevan Sanchez on 09-02-2023 Glucose [Mass/Vol] 118 mg/dL High 70-100 [facility] Comment on above: ADA recommended refe rence rangeRandom Glucose Reference Range is dependent on time and content of last meal. Glucose of more than 200 mg/dL in a nonstressed, ambulatory subject supports the diagnosis of Diabetes Mellitus. Result Comment: [facility] Glucose Reference Range is dependent on time and content of last meal. Glucose of more than 200 mg/dL in a nonstressed, ambulatory subject supports the diagnosis of Diabetes Mellitus. ADA recommended reference range Performed By: #### LASHAWN MALIK #### [address] Hematocrit [Volume Fraction] of Blood by Automated countOrdered By: Jeevan Sanchez on 09-02-2023 Hematocrit (Bld) [Volume fraction] 35.3 % Normal 34.0-46.4 [facility] Comment on above: Performed By: #### LASHAWN MALIK #### [address] Hemoglobin [Mass/volume] in BloodOrdered By: Jeevan Sanchez on 09-02-2023 Hemoglobin (Bld) [Mass/Vol] 12.5 g/dL Normal 11.8-15.4 [facility] Comment on above: Performed By: #### LASHAWN MALIK #### [place] [address] [place] Leukocytes [#/volume] correc gatito for nucleated erythrocytes in Blood by Automated counOrdered By: Jeevan Sanchez on 09-02-2023 WBC corrected for nucl RBC Auto (Bld) [#/Vol] 10.5 10*3/uL 3.8-11.6 [facility] Leukocytes [#/volume] in Blo od by Automated countOrdered By: Jeevan Sanchez on 09-02-2023 WBC (Bld) [#/Vol] 10.5 10*3/uL Normal 3.8-11.6 [facility] Comment on above: Performed By: #### CAROLANN MALIKW NA #### [facility] [address] [place] [address] [place] Lymphocytes [#/volume] in Bl ood by Automated countOrdered By: Jeevan Sanchez on 09-02-2023 Lymphocytes (Bld) [#/Vol] 1.5 10*3/uL Normal 1.00-4.8 [facility] Comment on above: Performed By: #### LASHAWN MALIK NA #### [address] Lymphocytes/100 leukocytes i n Blood by Automated countOrdered By: Jeevan Sanchez on 09-02-2023 Lymphocytes/100 WBC (Bld) 14.7 % Normal . [facility] Comment on above: Performed By: #### LASHAWN MALIK NA #### [address] MCH [Entitic mass] by Automa gatito countOrdered By: Jeevan Sanchez on 09-02-2023 MCH (RBC) [Entitic mass] 30.5 pg Normal 24.7-34.3 [facility] Comment on above: Performed By: #### LASHAWN MALIK NA #### [address] MCHC Auto (RBC) [Mass/Vol]Or dered By: Jeevan Sanchez on 09-02-2023 MCHC (RBC) [Mass/Vol] 35.3 g/dL High 32.0-35.0 [facility] MCV [Entitic volume] by Auto mated countOrdered By: Jeevan Sanchez on 09-02-2023 MCV (RBC) [Entitic vol] 86.4 fL Normal 80-100 [facility] Comment on above: Performed By: #### R EDRAW K, REDRAW NA #### [facility] [address] [place] [address] Neutrophils [#/volume] in Bl ood by Automated countOrdered By: Jeevan Sanchez on 09-02-2023 Neutrophils (Bld) [#/Vol] 8.2 10*3/uL High 1.8-7.7 [facility] Comment on above: Performed By: #### LASHAWN MALIK NA #### [address] No Panel InformationOrdered By: Jeevan Sanchez on 09-02-2023 Estimated GFR (CKD-EPI) > 60.0 mL/Min [facility] Creatinine Clearance (Chem 62.04 [facility] Nucleated erythrocytes [Pres ence] in Blood by Automated countOrdered By: Jeevan Sanchez on 09-02-2023 Nucleated RBC Auto Ql (Bld) 0.1 /100{WBC} 0-0.5 [facility] Platelet mean volume [Entiti c volume] in Blood by Automated countOrdered By: Jeevan Sanchez on 09-02-2023 Platelet mean volume (Bld) [Entitic vol] 7.0 fL Normal 6.3-10.7 [facility] Comment on above: Performed By: #### LASHAWN MALIK NA #### [facility] [address] [place] [address] Platelets [#/volume] in Bloo d by Automated countOrdered By: Jeevan Sanchez on 09-02-2023 Platelets (Bld) [#/Vol] 188 10*3/uL Normal 150-450 [facility] Comment on above: Performed By: #### LASHAWN MALIK NA #### [address] Potassium [Moles/volume] in Serum or PlasmaOrdered By: Jeevan Sanchez on 09-02-2023 Potassium [Moles/Vol] 3.9 mmol/L Normal 3.5-5.1 [facility] Comment on above: Performed By: #### JIAN MALIKRAW NA #### [address] Serum or plasma anion gap de terminationOrdered By: Jeevan Sanchez on 09-02-2023 Anion gap [Moles/Vol] 8.4 mmol/L Normal 6.0-15.0 [facility] Comment on above: Performed By: #### Ez Zhang REDRAW NA #### [place] [address] [place] Sodium [Moles/volume] in Ser um or PlasmaOrdered By: Jeevan Sanchez on 09-02-2023 Sodium [Moles/Vol] 139 mmol/L Normal 136-145 [facility] Comment on above: Performed By: #### Ez Zhang REDRAW NA #### [address] Urea nitrogen [Mass/volume] in Serum or PlasmaOrdered By: Jeevan Sanchez on 09-02-2023 Urea nitrogen [Mass/Vol] 18 mg/dL Normal 7-25 [facility] Comment on above: Performed By: #### Ez Zhang REDRAW NA #### [place] [address] [place] ABO/Rh Retypeon 09-01-2023 ABO/RH Recheck Result Negative Normal [facility] Comment on above: Result Comment: PERF ORMED BY: [place] [address] PATHOLOGIST HOME HEALTH TRAVEL OT CAMILO SEBASTIAN M.D. Basic Metabolic Panelon 08-11 Anion gap [Moles/Vol] Not performed Normal 6.0-15.0 [facility] Comment on above: Performed By: #### B MP #### [address] Calcium [Mass/Vol] 8.2 mg/dL Low 8.6-10.3 [facility] Comment on above: Performed By: #### B MP #### [place] [address] [place] Chloride [Moles/Vol] 108 mmol/L High 98-107 [facility] Comment on above: Performed By: #### B MP #### [address] CO2 [Moles/Vol] 22.5 mmol/L Normal 21.0-31.0 [facility] Comment on above: Performed By: #### B MP #### [address] Creatinine [Mass/Vol] 0.81 mg/dL Normal 0.60-1.20 [facility] Comment on above: Performed By: #### B MP #### [place] [address] [place] Creatinine Clr Calc Pharmacy 58.96 Normal [facility] Comment on above: Result Comment: PERF ORMED BY: [place] [address] PATHOLOGIST HOME HEALTH TRAVEL OT CAMILO SEBASTIAN M.D. Performed By: #### B MP #### [place] [address] [place] GFR/1.73 sq M.predicted MDRD (S/P/Bld) [Vol rate/Area] mL/min/{1.73_m2} Normal [facility] Comment on above: Performed By: #### B MP #### [address] Glucose [Mass/Vol] 149 mg/dL High 70-100 [facility] Comment on above: Result Comment: [place] Glucose Reference Range is dependent on time and content of last meal. Glucose of more than 200 mg/dL in a nonstressed, ambulatory subject supports the diagnosis of Diabetes Mellitus. ADA recommended reference range Performed By: #### B MP #### [address] Potassium Normal 3.5-5.1 [facility] Comment on above: Result Comment: Spec imen hemolyzed, redraw requested Performed By: #### B MP #### [place] [address] [place] Sodium Normal 136-145 [facility] Comment on above: Result Comment: Spec imen hemolyzed, redraw requested Performed By: #### B MP #### [facility] [address] Urea nitrogen [Mass/Vol] 16 mg/dL Normal 7-25 [facility] Comment on above: Performed By: #### B MP #### [facility] [address] [id number] [facility] [facility] Sebastian 09-01-2023 L Specimen: [id number] Received: 09/01/23 Status: SOUT Req Num: [id number] Spec Type: Surgical Subm Dr: Jeevan Sanchez MD Tissues: A Joint/Knee (RT KNEE BONE AND TISSUE) Procedures: HE/2, Gross/Micro L4, Decalcification Age/ Patient Sex Location Account Attending Physician Nadia Almeida 77/F [place] [id number] Jeevan Sanchez MD SPEC NUM: [id number] RECD: 09/01/23 STATUS: GLENViola REQ NUM: [id number] BENI: 09/01/23 DR: Jeevan Sanchez MD ENTERED: 09/01/[address] [facility] [address]: SPEC TYPE: Surgical DEPT: S [...] bone matrix. A gross photo is included. Timber Framer sections are submitted in A1 (bone following decalcification)-A2 (soft tissue). Specimen: [id number] Received: 09/01/23 Status: RIAN Nguyen Num: [id number] Spec Type: Surgical Subm Dr: Jeevan Sanchez MD Tissues: A Joint/Knee (RT KNEE BONE AND TISSUE) Procedures: HE/2, Gross/Micro L4, Decalcification Patient: Juan PabloNadia Perri [id number] (Continued) Specimen: [id number] Received: 09/01/23 (Continued) Signed (signature on file) Ramy De La Cruz Jr., MD 09/03/23 1055 Specimen: [id number] Received: 09/01/23 Status: RIAN Nguyen Num: [id number] Spec Type: Surgical Subm Dr: Jeevan Sanchez MD Tissues: A Joint/Knee (RT KNEE BONE AND TISSUE) Procedures: HE/2, Gross/Micro L4, Decalcification Patient: Nadia Almeida [id number] (Continued) Specimen: [id number] Received: 09/01/23 (Continued) CPT Codes 73066, 68083 BONE AND TISSUE Specimen: [id number] Received: 09/01/23 Status: RIAN Nguyen Num: [id number] Spec Type: Surgical Subm Dr: Jeevan Sanchez MD Tissues: A Joint/Knee (RT KNEE BONE AND TISSUE) Procedures: HE/2, Gross/Micro L4, Decalcification Patient: Nadia Almeida [id number] (Continued) Signed (signature on file) Ramy De La Cruz Jr., MD 09/03/23 1055 Normal [facility] Redraw Potassiumon Potassium [Moles/Vol] 4.2 mmol/L Normal 3.5-5.1 [facility] Comment on above: Result Comment: PERF ORMED BY: [facility] [address] [place] [id number] PATHOLOGIST HOME HEALTH TRAVEL OT CAMILO SEBASTIAN M.D. Performed By: #### R STEPAN Zhang REDRAW NA #### [facility] [address] [place], [place] [address] Redraw Sodiumon 09-01-2023 Sodium [Moles/Vol] 139 mmol/L Normal 136-145 [facility] Comment on above: Performed By: #### R LASHAWN MACIAS NA #### [facility] [address] XR knee RT 2Von 09-01-2023 XR knee RT 2V [facility] Main [place] [address] [place] [address] XRay Report Signed Patient: Nadia Almeida MR#: [id number] : 1945 Acct:[id number] Age/Sex: 77 / F ADM Date: 09/01/23 Loc: [place] Room: Type: [facility] Attending Dr: Jeevan Sanchez II, MD [...] COMPLICATION. Impression dictated by: Vinnie Anand Jr., DSommerOSommer09/01/2023 1:45 PM Dictation Location: [place] [address] Transcribed By: [facility] 09/01/23 1345 Dictated By: Vinnie Anand Jr, DO 09/01/23 1345 Signed By: 09/01/23 1345 Normal [facility] XR tibia fibula RT 2V*on XR tibia fibula RT 2V* [facility] [address] [place] [address] XRay Report Signed Patient: Nadia Almeida MR#: [id number] : 1945 Acct:[id number] Age/Sex: 77 / F ADM Date: 08/21/23 Loc: [facility] Room: Type: [facility] Attending Dr: Jeevan Sanchez II, MD Copies to: Jeevan Sanchez MD Ordering Provider: Jeevan Sanchez MD Date of Service: 08/21/23 XR/XR femur RT 2V*: M17.11 - Unilateral primary osteoarthritis, right knee ([id number]) XR/XR tibia fibula RT 2V*: M17.11 - [...] Jennifer Jon M.D.08/21/2023 4:44 PM Dictation Location: [place] [address] Transcribed By: [facility] 08/21/23 1644 Dictated By: Jennifer Jon MD 08/21/231641 Signed By: 08/21/23 164 Normal [facility] Automated basophil %Ordered By: Jeevan Sanchez on 08-18-2023 Basophils/100 WBC (Bld) 0.6 % Normal . [facility] Comment on above: Performed By: #### R EDJIAN JUANRAW NA #### [address] Automated basophil countOrde red By: Jeevan Sanchez on 08-18-2023 Basophils (Bld) [#/Vol] 0.0 10*3/uL Normal 0.0-0.2 [facility] Comment on above: Result Comment: PERF ORMED BY: [place] [address] PATHOLOGIST HOME HEALTH TRAVEL OT CAMILO SEBASTIAN M.D. Performed By: #### LASHAWN MALIK NA #### [address] Automated blood monocyte cou ntOrdered By: Jeevan Sanchez on 08-18-2023 Monocytes (Bld) [#/Vol] 0.4 10*3/uL Normal 0.0-0.8 [facility] Comment on above: Performed By: #### LASHAWN MALIK NA #### [address] Automated eosinophil %Ordere d By: Jeevan Sanchez on 08-18-2023 Eosinophils/100 WBC (Bld) 2.9 % Normal . [facility] Comment on above: Performed By: #### LASHAWN MALIK NA #### [address] Automated eosinophil countOr dered By: Jeevan Sanchez on 08-18-2023 Eosinophils (Bld) [#/Vol] 0.2 10*3/uL Normal 0.0-0.45 [facility] Comment on above: Performed By: #### LASHAWN MALIK NA #### [address] Automated monocyte %Ordered By: Jeevan Sanchez on 08-18-2023 Monocytes/100 WBC (Bld) 5.8 % Normal . [facility] Comment on above: Performed By: #### LASHAWN MALIK NA #### [address] Automated neutrophil %Ordere d By: Jeevan Sanchez on 08-18-2023 Neutrophils/100 WBC (Bld) 59.6 % Normal . [facility] Comment on above: Performed By: #### LASHAWN MALIK NA #### [address] Bacteria [Presence] in Urine by AutomatedOrdered By: Jeevan Sanchez on 08-18-2023 Bacteria Auto Ql (U) 4+ [HPF] High None Seen [facility] Basic Metabolic Panelon 07 GFR/1.73 sq M.predicted MDRD (S/P/Bld) [Vol rate/Area] mL/min/{1.73_m2} Normal [facility] Comment on above: Performed By: #### CAROLANN MALIKW NA #### [facility] [address] [place] [address] [place] Bilirubin Test strip Ql (U)O rdered By: Jeevan Sanchez on 08-18-2023 Bilirubin Ql (U) Negative Negative [facility] Calcium [Mass/volume] in Ser um or PlasmaOrdered By: Jeevan Sanchez on 08-18-2023 Calcium [Mass/Vol] 9.1 mg/dL Normal 8.6-10.3 [facility] Comment on above: Result Comment: PERF ORMED BY: [place] [address] PATHOLOGIST HOME HEALTH TRAVEL OT CAMILO SEBASTIAN M.D. Performed By: #### LASHAWN MALIK NA #### [place] [address] [place] Carbon dioxide, total [Moles /volume] in Serum or PlasmaOrdered By: Jeevan Sanchez on 08-18-2023 CO2 [Moles/Vol] 31.6 mmol/L High 21.0-31.0 [facility] Comment on above: Performed By: #### LASHAWN MALIK NA #### [place] [address] [place] Chloride [Moles/volume] in S liudmila or PlasmaOrdered By: Jeevan Sanchez on 08-18-2023 Chloride [Moles/Vol] 105 mmol/L Normal 98-107 [facility] Comment on above: Performed By: #### LASHAWN MALIK NA #### [facility] [address] [place] [address] [place] Color of Urine by AutoOrdere d By: Jeevan Sanchez on 08-18-2023 Color (U) Yellow Normal Yellow [facility] Comment on above: Order Comment: Name Collection Type:: Clean-Voided Midstream Performed By: #### LASHAWN MALIK #### [address] Complete Blood Count Auto Di ffon 08-18-2023 Mean Corpuscular HGB Conc 34.6 g/dL Normal 32.0-35.0 [facility] Comment on above: Performed By: #### LASHAWN MALIK NA #### [address] NRBC% 0.1 /100{WBC} Normal 0-0.5 [facility] Comment on above: Performed By: #### LASHAWN MALIK NA #### [address] Creatinine [Mass/volume] in Serum or PlasmaOrdered By: Jeevan Sanchez on 08-18-2023 Creatinine [Mass/Vol] 0.86 mg/dL Normal 0.60-1.20 [facility] Comment on above: Performed By: #### LASHAWN MALIK #### [place] [address] [place] Dipstick and Microscopicon 0 08-18-2023 Bacteria,Urine 4+ High None Seen [facility] Comment on above: Order Comment: Name Collection Type:: Clean-Voided Midstream Performed By: #### LASHAWN MALIK #### [place] [address] [place] Bilirubin,Urine Negative Normal Negative [facility] Comment on above: Order Comment: Name Collection Type:: Clean-Voided Midstream Performed By: #### LASHAWN MALIK #### [address] Glucose Ql (U) Normal Normal Normal [facility] Comment on above: Order Comment: Name Collection Type:: Clean-Voided Midstream Performed By: #### Ez Zhang REDRAW NA #### [facility] [address] [place] [address] [place] Hyaline Casts,Urine None Normal 0-[address] [facility] Comment on above: Order Comment: Name Collection Type:: Clean-Voided Midstream Performed By: #### R EDRAW K, REDRAW NA #### [place] [address] [place] Mucus,Urine Rare Normal [facility] Comment on above: Order Comment: Name Collection Type:: Clean-Voided Midstream Result Comment: PERF ORMED BY: [place] [address] PATHOLOGIST HOME HEALTH TRAVEL OT CAMILO SEBASTIAN M.D. Performed By: #### R EDRAW K, REDRAW NA #### [place] [address] [place] Nitrite,Urine Negative Normal Negative [facility] Comment on above: Order Comment: Name Collection Type:: Clean-Voided Midstream Performed By: #### R EDRAW K, REDRAW NA #### [place] [address] [place] Occult Blood,Urine Negative Normal Negative [facility] Comment on above: Order Comment: Name Collection Type:: Clean-Voided Midstream Result Comment: PERF ORMED BY: [place] [address] PATHOLOGIST HOME HEALTH TRAVEL OT CAMILO SEBASTIAN M.D. Performed By: #### R EDRAW K, REDRAW NA #### [place] [address] [place] Protein,Urine Negative Normal Negative [facility] Comment on above: Order Comment: Name Collection Type:: Clean-Voided Midstream Performed By: #### R EDRAW K, REDRAW NA #### [place] [address] [place] RBC,Urine 1-2 Normal 0-4 [facility] Comment on above: Order Comment: Name Collection Type:: Clean-Voided Midstream Performed By: #### R EDRAW K, REDRAW NA #### [address] Specificy [place],Urine 1.022 Normal 1.001-1.03 0 [facility] Comment on above: Order Comment: Name Collection Type:: Clean-Voided Midstream Performed By: #### R EDRAW K, REDRAW NA #### [address] Squamous Epithelial Cell,Urine 1-2 Normal 0-2 [facility] Comment on above: Order Comment: Name Collection Type:: Clean-Voided Midstream Performed By: #### R EDRAW K, REDRAW NA #### [address] Urobilinogen,Urine Normal Normal Normal [facility] Comment on above: Order Comment: Name Collection Type:: Clean-Voided Midstream Performed By: #### R EDRAW K, REDRAW NA #### [address] WBC,Urine 5-9 High 0-4 [facility] Comment on above: Order Comment: Name Collection Type:: Clean-Voided Midstream Performed By: #### R EDRAW K, REDRAW NA #### [address] ECG 12 lead ECGon 08-18-2023 ECG 12 lead ECG [facility] [place] [address] Electrocardiograph Report Signed Patient: Nadia Almeida MR#: [id number] : 1945 Acct:[id number] Age/Sex: 77 / F ADM Date: 08/18/23 Loc: Room: Type: [facility] Attending Dr: Jeevan Sanchez II, MD [...] previous ECGs available Confirmed by SOREN ALVARADO [facility], NERY ([id number]) on 08/18/2023 12:04:10 PM Referred By: DANIEL Electronically Signed By:NERY DOTY MD [facility] Transcribed By: BEATRICE Signed By Nery Doty MD, [facility] 08/18/23 1204 Normal [facility] Epithelial cells.squamous [# /area] in Urine sediment by Automated countOrdered By: Jeevan Sanchez on 08-18-2023 Epithelial cells.squamous Auto (Urine sed) [#/Area] 1-2 [HPF] 0-2 [facility] Erythrocyte distribution wid th [Ratio] by Automated countOrdered By: Jeevan Sanchez on 08-18-2023 Erythrocyte distribution width (RBC) [Ratio] 13.9 % Normal 11.9-15.3 [facility] Comment on above: Performed By: #### R LASHAWN MACIAS NA #### [facility] [address] Erythrocytes [#/area] in Uri ne sediment by Automated countOrdered By: Jeevan Sanchez on 08-18-2023 RBC Auto (Urine sed) [#/Area] 1-2 [HPF] 0-4 [facility] Erythrocytes [#/volume] in B lood by Automated countOrdered By: Jeevan Sanchez on 08-18-2023 RBC (Bld) [#/Vol] 4.50 10*6/uL Normal 3.60-5.00 [facility] Comment on above: Performed By: #### R LASHAWN MACIAS NA #### [facility] [address] Fructosamineon 08-18-2023 Fructosamine 244 umol/L Normal 0-285 [facility] Comment on above: Result Comment: Publ ished reference interval for apparently healthy subjects between age 20 and 60 is 205 - 285 umol/L and in a poorly controlled diabetic population is 228 - 563 umol/L with a mean of 396 umol/L. Performed at: [facility] [address] [place], [place] [id number] Commissioner Conservation Of Resources: Kendell Teague PhD, Phone: [phone] PERFORMED BY: [place] [address] PATHOLOGIST HOME HEALTH TRAVEL OT CAMILO SEBASTIAN M.D. Performed By: #### R STEPAN Zhang REDRAW NA #### [address] Fructosamine [Moles/volume] in Serum or PlasmaOrdered By: Jeevan Sanchez on 08-18-2023 Fructosamine [Moles/Vol] 244 umol/L 0-285 [facility] Comment on above: Published reference interval for apparently healthysubjects between age 20 and 60 is 205 - 285 umol/L and in apoorly controlled diabetic population is 228 - 563 umol/Lwith a mean of 396 umol/L.Performed at: - [address] [id number] Director: Kendell Teague PhD, Phone: [phone] Glucose [Mass/volume] in Ser um or PlasmaOrdered By: Jeevan Sanchez on 08-18-2023 Glucose [Mass/Vol] 109 mg/dL High 70-100 [facility] Comment on above: ADA recommended refe rence rangeRandom Glucose Reference Range is dependent on time and content of last meal. Glucose of more than 200 mg/dL in a nonstressed, ambulatory subject supports the diagnosis of Diabetes Mellitus. Result Comment: [place] Glucose Reference Range is dependent on time and content of last meal. Glucose of more than 200 mg/dL in a nonstressed, ambulatory subject supports the diagnosis of Diabetes Mellitus. ADA recommended reference range Performed By: #### R STEPAN Zhang, REDRAW NA #### [place] [address] [place] Glucose [Mass/volume] in Uri ne by Test stripOrdered By: Jeevan Sanchez on 08-18-2023 Glucose Test strip (U) [Mass/Vol] Normal mg/dL Normal [facility] Hematocrit [Volume Fraction] of Blood by Automated countOrdered By: Jeevan Sanchez on 08-18-2023 Hematocrit (Bld) [Volume fraction] 39.4 % Normal 34.0-46.4 [facility] Comment on above: Performed By: #### LASHAWN MALIK NA #### [address] Hemoglobin Test strip Ql (U) Ordered By: Jeevan Sanchez on 08-18-2023 Hemoglobin Ql (U) Negative Negative [facility] Hemoglobin [Mass/volume] in BloodOrdered By: Jeevan Sanchez on 08-18-2023 Hemoglobin (Bld) [Mass/Vol] 13.6 g/dL Normal 11.8-15.4 [facility] Comment on above: Performed By: #### LASHAWN MALIK NA #### [place] [address] [place] Hyaline casts [#/area] in Ur ine sediment by Automated countOrdered By: Jeevan Sanchez on 08-18-2023 Hyaline casts Auto (Urine sed) [#/Area] None [LPF] 0-8 [facility] Ketones [Presence] in Urine by Test stripOrdered By: Jeevan Sanchez on 08-18-2023 Ketones Ql (U) Negative Normal Negative [facility] Comment on above: Order Comment: Name Collection Type:: Clean-Voided Midstream Performed By: #### LASHAWN MALIK NA #### [place] [address] [place] Leukocyte esterase [Presence ] in Urine by Test stripOrdered By: Jeevan Sanchez on 08-18-2023 Leukocyte esterase Test strip Ql (U) 1+ High Negative [facility] Comment on above: Order Comment: Name Collection Type:: Clean-Voided Midstream Performed By: #### LASHAWN MALIK NA #### [place] [address] [place] Leukocytes [#/area] in Urine sediment by Automated countOrdered By: Jeevan Sanchez on 08-18-2023 WBC Auto (Urine sed) [#/Area] 5-9 [HPF] High 0-4 [facility] Leukocytes [#/volume] correc gatito for nucleated erythrocytes in Blood by Automated counOrdered By: Jeevan Sanchez on 08-18-2023 WBC corrected for nucl RBC Auto (Bld) [#/Vol] 7.6 10*3/uL 3.8-11.6 [facility] Leukocytes [#/volume] in Blo od by Automated countOrdered By: Jeevan Sanchez on 08-18-2023 WBC (Bld) [#/Vol] 7.6 10*3/uL Normal 3.8-11.6 [facility] Comment on above: Performed By: #### CAROLANN MALIKW NA #### [place] [address] [place] Lymphocytes [#/volume] in Bl ood by Automated countOrdered By: Jeevan Sanchez on 08-18-2023 Lymphocytes (Bld) [#/Vol] 2.4 10*3/uL Normal 1.00-4.8 [facility] Comment on above: Performed By: #### LASHAWN MALIK NA #### [address] Lymphocytes/100 leukocytes i n Blood by Automated countOrdered By: Jeevan Sanchez on 08-18-2023 Lymphocytes/100 WBC (Bld) 31.1 % Normal . [facility] Comment on above: Performed By: #### LASHAWN MALIK NA #### [place] [address] [place] MCH [Entitic mass] by Automa gatito countOrdered By: Jeevan Sanchez on 08-18-2023 MCH (RBC) [Entitic mass] 30.3 pg Normal 24.7-34.3 [facility] Comment on above: Performed By: #### LASHAWN MALIK NA #### [place] [address] [place] MCHC Auto (RBC) [Mass/Vol]Or dered By: Jeevan Sanchez on 08-18-2023 MCHC (RBC) [Mass/Vol] 34.6 g/dL 32.0-35.0 [facility] MCV [Entitic volume] by Auto mated countOrdered By: Jeevan Sanchez on 08-18-2023 MCV (RBC) [Entitic vol] 87.6 fL Normal 80-100 [facility] Comment on above: Performed By: #### LASHAWN MALIK NA #### [facility] [address] Mucus [Presence] in Urine by AutomatedOrdered By: Jeevan Sanchez on 08-18-2023 Mucus Auto Ql (U) Rare [LPF] [facility] Neutrophils [#/volume] in Bl ood by Automated countOrdered By: Jeevan Sanchez on 08-18-2023 Neutrophils (Bld) [#/Vol] 4.6 10*3/uL Normal 1.8-7.7 [facility] Comment on above: Performed By: #### LASHAWN MALIK NA #### [facility] [address] Nitrite Test strip Ql (U)Ord ered By: Jeevan Sanchez on 08-18-2023 Nitrite Ql (U) Negative Negative [facility] No Panel InformationOrdered By: Jeevan Sanchez on 08-18-2023 Estimated GFR (CKD-EPI) > 60.0 mL/Min [facility] Creatinine Clearance (Chem N/A [facility] Nucleated erythrocytes [Pres ence] in Blood by Automated countOrdered By: Jeevan Sanchez on 08-18-2023 Nucleated RBC Auto Ql (Bld) 0.1 /100{WBC} 0-0.5 [facility] PST Type and Screenon 2023 ABO and Rh group Nom (Bld) Blood group B Rh(D) negative Normal [facility] Comment on above: Order Comment: Date of Surgery: [id number] Result Comment: PERF ORMED BY: [address] [place] [address] PATHOLOGIST HOME HEALTH TRAVEL OT CAMILO SEBASTIAN M.D. Platelet mean volume [Entiti c volume] in Blood by Automated countOrdered By: Jeevan Sanchez on 08-18-2023 Platelet mean volume (Bld) [Entitic vol] 7.0 fL Normal 6.3-10.7 [facility] Comment on above: Performed By: #### Ez Zhang REDRAW NA #### [facility] [address] [place] [address] [place] Platelets [#/volume] in Bloo d by Automated countOrdered By: Jeevan Sanchez on 08-18-2023 Platelets (Bld) [#/Vol] 202 10*3/uL Normal 150-450 [facility] Comment on above: Performed By: #### CAROLANN MALIKW NA #### [place] [address] [place] Potassium [Moles/volume] in Serum or PlasmaOrdered By: Jeevan Sanchez on 08-18-2023 Potassium [Moles/Vol] 4.1 mmol/L Normal 3.5-5.1 [facility] Comment on above: Performed By: #### LASHAWN MALIK NA #### [address] Protein Test strip (U) [Mass /Vol]Ordered By: Jeevan Sanchez on 08-18-2023 Protein (U) [Mass/Vol] Negative Negative [facility] Serum or plasma anion gap de terminationOrdered By: Jeevan Sanchez on 08-18-2023 Anion gap [Moles/Vol] 9.5 mmol/L Normal 6.0-15.0 [facility] Comment on above: Performed By: #### LASHAWN MALIK NA #### [place] [address] [place] Sodium [Moles/volume] in Ser um or PlasmaOrdered By: Jeevan Sanchez on 08-18-2023 Sodium [Moles/Vol] 142 mmol/L Normal 136-145 [facility] Comment on above: Performed By: #### LASHAWN MALIK NA #### [facility] [address] [place] [id number] [facility] Specific gravity Test strip (U) [Rel density]Ordered By: Jeevan Sanchez on 08-18-2023 Specific gravity (U) [Rel density] 1.022 1.001-1.03 0 [facility] Urea nitrogen [Mass/volume] in Serum or PlasmaOrdered By: Jeevan Sanchez on 08-18-2023 Urea nitrogen [Mass/Vol] 19 mg/dL Normal 7-25 [facility] Comment on above: Performed By: #### R LASHAWN MACIAS NA #### [facility] [address] [place] [id number] [facility] Urine Cultureon 08-18-2023 Bacteria identified Cx Nom (U) ORGANISM: Escherichia coli (O:ESCCOL) [place] Count 50,000 Aerobic FRANK Charge (NMIC56) SUSCEPTIBILITY [...] RESISTANT TO ALL B-LACTAM DRUGS. PERFORMED BY: [place] [address] PATHOLOGIST HOME HEALTH TRAVEL OT CAMILO SEBASTIAN M.D. Normal [facility] Comment on above: Performed By: #### R STEPAN Zhang REDRAW NA #### [address] Urine appearanceOrdered By: Jeevan Sanchez on 08-18-2023 Appearance (U) Clear Normal Clear [facility] Comment on above: Order Comment: Name Collection Type:: Clean-Voided Midstream Performed By: #### R STEPAN Zhang REDRAW NA #### [address] Urine culture routineOrdered By: Jeevan Sanchez on 08-18-2023 Bacteria identified Cx Nom (U) Escherichia coli Abnormal [facility] Urobilinogen Test strip (U) [Mass/Vol]Ordered By: Jeevan Sanchez on 08-18-2023 Urobilinogen (U) [Mass/Vol] Normal mg/dL Normal [facility] pH of Urine by Test stripOrd ered By: Jeevan Sanchez on 08-18-2023 pH (U) 5.0 [pH] Normal 5.0-9.0 [facility] Comment on above: Order Comment: Name Collection Type:: Clean-Voided Midstream Performed By: #### R STEPAN Zhang REDRAW NA #### [place] [id number] [facility] A1C with Estimated Average G luon 07-17-2023 Glucose [Mass/Vol] 97 mg/dL Normal [facility] Comment on above: Result Comment: PERF ORMED BY: [place] [address] PATHOLOGIST HOME HEALTH TRAVEL OT CAMILO SEBASTIAN M.D. Performed By: #### C UMRSA, A1C WTH eA, ALB, HGB, [id number] #### [address] [place] [address] [place] #### NICOTINE #### [facility] , Albumin Levelon 07-17-2023 Albumin [Mass/Vol] 4.2 g/dL Normal 3.5-5.7 [facility] Comment on above: Performed By: #### C UMRSA, A1C WTH eA, ALB, HGB, [id number] #### [facility] [address] [place] [id number] [facility] #### NICOTINE #### [facility] , Albumin [Mass/volume] in Ser um or Plasma by Bromocresol green (BCG) dye binding methoOrdered By: Jeevan Sanchez on 07-17-2023 Albumin BCG dye [Mass/Vol] 4.2 g/dL 3.5-5.7 [facility] Cotinine [Mass/volume] in Se rum or PlasmaOrdered By: Jeevan Sanchez on 07-17-2023 Cotinine [Mass/Vol] <1.0 ng/mL . [facility] Comment on above: This test was develo ped and its performance characteristicsdetermined by [employer]. It has not been cleared orapproved by the Food and Drug Administration.Cotinine levels greater than 20.0 are consistent with theuse of tobacco or tobacco cessation products.Performed at: [address] [id number] Director: Evette Bryan MD, Phone: [phone] Glucose mean value [Mass/vol ume] in Blood Estimated from glycated hemoglobinOrdered By: Jeevan Sanchez on 07-17-2023 Average glucose Estimated from glycated hemoglobin (Bld) [Mass/Vol] 97 mg/dL [facility] Hemoglobin A1c percentageOrd ered By: Jeevan Sanchez on 07-17-2023 HbA1c (Bld) [Mass fraction] 5.0 % Normal 4.3-5.6 [facility] Comment on above: Increased risk for d iabetes: 5.7 - 6.4diabetes: >6.4glycemic control for adults with diabetes: <7.0 Result Comment: Incr eased risk for diabetes: 5.7 - 6.4 diabetes: >6.4 glycemic control for adults with diabetes: <7.0 Performed By: #### C UMRSA, A1C WTH eA, ALB, HGB, [id number] #### [address] #### NICOTINE #### [facility] , Hemoglobin [Mass/volume] in BloodOrdered By: Jeevan Sanchez on 07-17-2023 Hemoglobin (Bld) [Mass/Vol] 13.5 g/dL Normal 11.8-15.4 [facility] Comment on above: Result Comment: PERF ORMED BY: [place] [address] PATHOLOGIST HOME HEALTH TRAVEL OT CAMILO SEBASTIAN M.D. Performed By: #### C UMRSA, A1C WTH eA, ALB, HGB, [id number] #### [address] #### NICOTINE #### [facility] , MRSA Cultureon 07-17-2023 MRSA Culture No MRSA Isolated 2 D ays PERFORMED BY: [place] [address] PATHOLOGIST HOME HEALTH TRAVEL OT CAMILO SEBASTIAN M.D. Normal [facility] Comment on above: Performed By: #### C UMRSA, A1C WTH eA, ALB, HGB, [id number] #### [address] #### NICOTINE #### [facility] , Nicotine [Mass/volume] in Se rum or PlasmaOrdered By: Jeevan Sanchez on 07-17-2023 Nicotine [Mass/Vol] <1.0 ng/mL . [facility] Comment on above: This test was develo ped and its performance characteristicsdetermined by [facility]. It has not been cleared orapproved by the Food and Drug Administration.Nicotine levels greater than 2.0 are consistent with theuse of tobacco or tobacco cessation products. Nicotine/Cotinine Bloodon Cotinine, Blood <1.0 Normal . [facility] Comment on above: Result Comment: This test was developed and its performance characteristics determined by [facility]. It has not been cleared or approved by the Food and Drug Administration. Cotinine levels greater than 20.0 are consistent with the use of tobacco or tobacco cessation products. Performed at: [facility] [address] [id number] Commissioner Conservation Of Resources: Evette Bryan MD, Phone: [phone] PERFORMED BY: [place] [address] PATHOLOGIST HOME HEALTH TRAVEL OT CAMILO SEBASTIAN M.D. Performed By: #### C UMRSA, A1C WTH eA, ALB, HGB, [id number] #### [address] #### NICOTINE #### [facility] , Nicotine, Blood <1.0 Normal . [facility] Comment on above: Result Comment: This test was developed and its performance characteristics determined by [facility]. It has not been cleared or approved by the Food and Drug Administration. Nicotine levels greater than 2.0 are consistent with the use of tobacco or tobacco cessation products. Performed By: #### C UMRSA, A1C WTH eA, ALB, HGB, [id number] #### [address] #### NICOTINE #### [facility] , Vitamin D 25 Hydroxy Totalon 07-17-2023 Vitamin D 25 Hydroxy Total 75.8 ng/mL Normal 30-100 [facility] Comment on above: Result Comment: MALGORZATA MIN D STATUS 25(OH)VITAMIN D RANGE (ng/mL) Deficient <20 Insufficient 20 to <30 Sufficient 30 to 100 Reference: Judy MF,Roberto NC, Kae CELESTE, et al. Evaluation,treatment, and prevention of vitamin D deficiency; an Endocrine Society clinical practice guideline. JCEM. 2010; 96(7):1911-30. PERFORMED BY: [place] [address] PATHOLOGIST HOME HEALTH TRAVEL OT CAMILO SEBASTIAN M.D. Performed By: #### C UMRSA, A1C WTH eA, ALB, HGB, [id number] #### [facility] [address] #### NICOTINE #### [facility] , Vitamin D+Metabolites [Mass/ volume] in Serum or PlasmaOrdered By: Jeevan Sanchez on 07-17-2023 Vitamin D+Metabolites [Mass/Vol] 75.8 ng/mL 30-100 [facility] Comment on above: VITAMIN D STATUS 25( [...] (Unsp spec) No MRSA Isolated 2 Days [facility] XR hip LT min 2V(w/wo pelvis )*on 06-26-2023 XR hip LT min 2V(w/wo pelvis)* [facility] [address] [place] [address] XRay Report Signed Patient: Nadia Almeida MR#: [id number] : 1945 Acct:[id number] Age/Sex: 77 / F ADM Date: 06/26/23 Loc: [facility] Room: Type: [facility] Attending Dr: Jeevan Sanchez II, MD [...] Ashwin Brown M.D.06/26/2023 4:03 PM Dictation Location: RADIO--07 Transcribed By: [facility] 06/26/23 160 Dictated By: Ashwin Brown II, MD 06/26/23 160 Signed By: 06/26/23 1603 Normal [facility] XR knee RT 4V*on 06-26-2023 XR knee RT 4V* [facility] [place] [facility] [address] [place] [address] XRay Report Signed Patient: Nadia Almeida MR#: [id number] : 1945 Acct:[id number] Age/Sex: 77 / F ADM Date: 06/26/23 Loc: [facility] Room: Type: [facility] Attending Dr: Jeevan Sanchez II, MD [...] 4:01 PM Dictation Location: RADIO-PC-12 Transcribed By: [facility] 06/26/23 1601 Dictated By: Max Gates DO 06/26/23 1559 Signed By: 06/26/23 1601 Normal [facility] CNOVSPon 06-10-2022 CNOVSP Visit (SP) Office (Abhijeet DIMAS) -- ALMEIDAGREGORY NolascoTY Perri ([id number]) 1945 F Date Time Provider Department 06/10/22 10:30 AM GARRETT BELTRÁN During your visit today, we recorded the following information about you: Temperature Pulse Respiration Blood pressure 97.4 degrees 68/minute 16/minute 133/63 Weight Height 80.7 kg 1.68 m Garrett Beltrán MD 06/16/2022 4:20 PM Signed NAME: Nadia Almeida CLINIC NO.: [id number] DATE OF SERVICE: June 10, 2022 (Leigh Ann) Some elements in this clinic note that are critical to medical decision making have been carefully reviewed and included from a prior clinic note dated: June 04, 2021 Referring Provider: Shaw Francois II CC: Right breast cancer ER/WV positive, HER-2/crescencio negative diagnosed May 2011. 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 HER-2/crescencio was negative. [place] lymph nodes were negative. Mastectomy done 05/14/2011 also showed a 0.5 cm grade 2 ER/WV positive HER-2/crescencio negative invasive ductal carcinoma with [...] Take 1 tablet by mouth once daily. Hghztzfcdqylp-Zygxyrob-Txj ein (CENTRUM SILVER) tab Take 1 tablet by mouth once daily. RANITIDINE HCL (ZANTAC ORAL) Take by mouth. (Patient not taking: Reported on 06/10/2022) LABORATORY VALUES: WBC (k/uL) Date Value 06/04/2021 6.65 RBC (m/uL) Date Value 06/04/2021 4.61 Hemoglobin (g/dL) Date Value 06/04/2021 (more content not included)... Normal [facility] MG MAMM SCREEN LT 3D CADon 0 06-03-2022 MG MAMM SCREEN LT 3D CAD Patient: NADIA ALMEIDA Exam Date: 06/03/2022 : 1945 Gender:F Ordering : DR. GARRETT BELTRÁN M.D. Admission #: [id number] Family : DR SHAW FRANCOIS M.D. Order #: [id number] CLICK HERE TO VIEW EXAM RADIOLOGY REPORT [...] LOCATION: [facility] BREAST COMPOSITION: Scattered areas fibroglandular density. FINDINGS: [...] Normal [facility] COVID-19 Positive/NegativeOr dered By: Naya Weber on 05-21-2021 SARS-CoV-2 (COVID-19) N gene ALBINA+probe Ql (Resp) Negative Negative [facility] Comment on above: Testing for SARS-CoV -2 by RT-PCRThis test was developed and its performance characteristics determined by [employer] ([employer] and validated at the [facility]. This test has not been FDA cleared [...] C-Reactive Proteinon 022 CRP IV <0.3 Normal [facility] Access Rep Comment on above: Performed By: #### C BC, CRP, ESR, RF, CMP, URIC #### [facility] [address] [place], [place] [id number] Complete Blood Counton 04-25 Erythrocyte distribution width (RBC) [Ratio] 12.8 % Normal 11.0-15.0 [facility] Access [facility] Comment on above: Performed By: #### C BC, CRP, ESR, RF, CMP, URIC #### [facility] [address] [place], [place] [id number] Hematocrit (Bld) [Volume fraction] 43.7 % Normal 35.0-47.0 [facility] Comment on above: Performed By: #### C BC, CRP, ESR, RF, CMP, URIC #### [facility] [address] [place], [place] [id number] Hemoglobin (Bld) [Mass/Vol] 14.5 g/dL Normal 11.6-15.5 [facility] Comment on above: Performed By: #### C BC, CRP, ESR, RF, CMP, URIC #### [facility] [address] [place], [place] [id number] MCH (RBC) [Entitic mass] 29.5 pg Normal 27.0-33.0 [facility] Comment on above: Performed By: #### C BC, CRP, ESR, RF, CMP, URIC #### [facility] [address] [place], [place] [id number] MCHC (RBC) [Mass/Vol] 33.2 g/dL Normal 32.0-36.[address] [facility] Comment on above: Performed By: #### C BC, CRP, ESR, RF, CMP, URIC #### [facility] [address] [place], [place] [id number] MCV (RBC) [Entitic vol] 89 fL Normal 80-100 [facility] Comment on above: Performed By: #### C BC, CRP, ESR, RF, CMP, URIC #### [facility] [address] [place], [place] [id number] Platelet mean volume (Bld) [Entitic vol] 9.00 fL Normal 7.50-12.50 [facility] Comment on above: Performed By: #### C BC, CRP, ESR, RF, CMP, URIC #### [facility] [address] [place], [place] [id number] Platelets (Bld) [#/Vol] 201 10*3/uL Normal 140-400 [facility] Comment on above: Performed By: #### C BC, CRP, ESR, RF, CMP, URIC #### [facility] [address] [place], [place] [id number] RBC (Bld) [#/Vol] 4.92 10*6/uL Normal 3.90-5.20 [facility] Special[facility] Comment on above: Performed By: #### C BC, CRP, ESR, RF, CMP, URIC #### [facility] [address] [place], [place] [id number] RDW-SD 41.6 fL Normal 37.0-50.0 [facility] Comment on above: Performed By: #### C BC, CRP, ESR, RF, CMP, URIC #### [facility] [address] [place], [place] [id number] WBC (Bld) [#/Vol] 7.3 10*3/uL Normal 3.8-11.0 [facility] Access Rep Comment on above: Performed By: #### C BC, CRP, ESR, RF, CMP, URIC #### [facility] [address] [place], [place] [id number] Comprehensive Metabolic Pane [facility] 04-25-2021 Albumin [Mass/Vol] 4.5 g/dL Normal 3.6-5.1 [facility] Comment on above: Performed By: #### C BC, CRP, ESR, RF, CMP, URIC #### [facility] [address] [place], [place] [id number] Albumin/Globulin [Mass ratio] 2.1 {ratio} Normal 1.0-2.5 [facility] Comment on above: Performed By: #### C BC, CRP, ESR, RF, CMP, URIC #### [facility] [address] [place], [place] [id number] ALP [Catalytic activity/Vol] 64 U/L Normal 35-119 [facility] Comment on above: Performed By: #### C BC, CRP, ESR, RF, CMP, URIC #### [facility] [address] [place], [place] [id number] ALT [Catalytic activity/Vol] 12 U/L Normal 6-33 [facility] Comment on above: Result Comment: 01/10 Female reference range changed. Performed By: #### C BC, CRP, ESR, RF, CMP, URIC #### [facility] [address] [place], [place] [id number] Anion gap [Moles/Vol] 17 mmol/L Normal 12-[address] [facility] Comment on above: Result Comment: Britta ctive 02/15/2019 reference range changed. Performed By: #### C BC, CRP, ESR, RF, CMP, URIC #### [facility] [address] [place], [place] [id number] AST [Catalytic activity/Vol] 14 U/L Normal 9-34 [facility] Comment on above: Performed By: #### C BC, CRP, ESR, RF, CMP, URIC #### [facility] [address] [place], [place] [id number] Bilirubin [Mass/Vol] 0.67 mg/dL Normal 0.30-1.20 [facility] Comment on above: Performed By: #### C BC, CRP, ESR, RF, CMP, URIC #### [facility] [address] [place], [place] [id number] BUN/CREA 22 Ratio Normal 6-22 [facility] Comment on above: Performed By: #### C BC, CRP, ESR, RF, CMP, URIC #### [facility] [address] [place], [place] [id number] Calcium [Mass/Vol] 9.2 mg/dL Normal 8.6-10.2 [facility] Comment on above: Performed By: #### C BC, CRP, ESR, RF, CMP, URIC #### [facility] [address] [place], [place] [id number] Chloride [Moles/Vol] 104 mmol/L Normal 98-107 [facility] Comment on above: Performed By: #### C BC, CRP, ESR, RF, CMP, URIC #### [facility] [address] [place], [place] [id number] CO2 [Moles/Vol] 24 mmol/L Normal 20-31 [facility] Comment on above: Performed By: #### C BC, CRP, ESR, RF, CMP, URIC #### [facility] [address] [place], [place] [id number] Creatinine [Mass/Vol] 0.7 mg/dL Normal 0.6-1.4 [facility] Specialist Comment on above: Performed By: #### C BC, CRP, ESR, RF, CMP, URIC #### [facility] [address] [place], [place] [id number] eGFRAA 95 mL/min/1.73m2 Normal >60 [facility] Comment on above: Performed By: #### C BC, CRP, ESR, RF, CMP, URIC #### [facility] [address] [place], [place] [id number] eGFRNAA 79 mL/min/1.73m2 Normal >60 [facility] Comment on above: Performed By: #### C BC, CRP, ESR, RF, CMP, URIC #### [facility] [address] [place], [place] [id number] Globulin (S) [Mass/Vol] 2.1 g/dL Normal 1.9-3.7 [facility] Access Rep Comment on above: Performed By: #### C BC, CRP, ESR, RF, CMP, URIC #### [facility] [address] [place], [place] [id number] Glucose [Mass/Vol] 98 mg/dL Normal 65-99 [facility] Access Rep Comment on above: Result Comment: For FASTING Glucose --- ADA reference ranges: Normal 65-99 mg/dl Prediabetes 100-125 Diabetes >/= 126 Performed By: #### C BC, CRP, ESR, RF, CMP, URIC #### [facility] [address] [place], [place] [id number] Potassium [Moles/Vol] 4.2 mmol/L Normal 3.5-5.5 [facility] Specialist Comment on above: Performed By: #### C BC, CRP, ESR, RF, CMP, URIC #### [facility] [address] [place], [place] [id number] Protein [Mass/Vol] 6.6 g/dL Normal 6.1-8.1 [facility] Access [facility] Comment on above: Performed By: #### C BC, CRP, ESR, RF, CMP, URIC #### [facility] [address] [place], [place] [id number] Sodium [Moles/Vol] 141 mmol/L Normal 135-146 [facility] Comment on above: Performed By: #### C BC, CRP, ESR, RF, CMP, URIC #### [facility] [address] [place], [place] [id number] Urea nitrogen [Mass/Vol] 16 mg/dL Normal 7-25 [facility] Comment on above: Performed By: #### C BC, CRP, ESR, RF, CMP, URIC #### [facility] [address] [place], [place] [id number] Q - CARRIE MULTIPLEX W/ REFLEX TO 11 ANTIBODY CASCADEon 04-25-2021 ANACHOICE(R) SCREEN Negative Normal NEGATIVE [facility] Comment on above: Order Comment: [facility] performed at: [employer], [facility], [address] [place] [address], [address] [place] [address], [id number], Boiler Or Engine Operator: Joe Hickey MD [facility] Collection Date/Time: [facility] Results Received Date/Time: [facility] Reported Date/Time: Result Comment: A ne gative CARRIE Multiplex, with Reflex to 11 Antibody Smyth indicates the absence of detectable antibodies to component analytes consisting of double stranded DNA (dsDNA), chromatin, ribonucleoprotein (PLANNING SUPERVISOR), Boyd/PLANNING SUPERVISOR (Sm/PLANNING SUPERVISOR), Boyd (Sm), SS-A, SS-B, Ruma-1, centromere B, Scl-70 and ribosomal P. A negative result should be interpreted in the context of the clinical and laboratory findings and does not rule out autoimmune disease characterized by other autoantibody specificities such as rheumatoid arthritis, autoimmune hepatitis, primary biliary cirrhosis, autoimmune thyroiditis, Montrose's disease, pernicious anemia, autoimmune neuropathies, vasculitis, celiac disease, and bullous disease. For additional information, please refer to http://education.TourMatters/faq/VEN805 (This link is being provided for informational/ educational purposes only.) Performed By: #### 1 9946 #### [facility] [address] [place] [address] RBC Sedimentation Rateon ESR (Bld) [Velocity] 7.00 mm/h Normal 0.00-30.00 [facility] Comment on above: Performed By: #### C BC, CRP, ESR, RF, CMP, URIC #### [facility] [address] [place], [place] [id number] Rheumatoid Factoron 04-26-19 22 RF <10 Normal [facility] Comment on above: Performed By: #### C BC, CRP, ESR, RF, CMP, URIC #### [facility] [address] [place], [place] [id number] Uric Acidon 04-25-2021 URIC 4.8 mg/dL Normal 2.5-7.0 [facility] Comment on above: Result Comment: Refe rence range change 12/27/2016. Prior reference range F 2.4-5.7mg/dL. M 3.4-7.0 mg/dL. Performed By: #### C BC, CRP, ESR, RF, CMP, URIC #### [facility] [address] [place], [place] [id number] CNPAna Cristina 10-03-2019 CNPN Telephone (FVPRAD) -- NADIA ALMEIDA ( ) 1945 F Date Time Provider Department 10/03/19 KENNEDY GALAN FVKYAW During your visit today, we recorded the following information about you: Kennedy Galan MD 10/03/2019 1:30 PM Signed Please call the patient and pass on the i[employer]it[employer] message I wrote today to her (in case she does not check my chart). Please send a copy of her CT chest to Dr Beltrán's office with a request to follow-up on the thyroid, kidney and breast abnormalities. Thank you, Kennedy Bruce LPN 10/04/2019 8:[address] Mckeon is with [facility] in [place]. LVM with office triage nurse to have [...] 1 tablet by mouth once d* * ZOMGHBJAVHDG-HUANLEIT-DAQA IN * Take 1 tablet by mouth [...] DATE OF EXAM: Sep 28 2019 9:28AM [facility] 0541 - CT CHEST WO [...] can be further evaluated with renal ultrasound. Oven Operator Automatic (topogram) images: No additional findings. IMPRESSION: NO [...] in a patient with INSERT MEDICAL REASON. [employer] 2015 * * * * * * * * ADDENDUM #1 * * * * * * * * COMPARISON: Chest x-rays dated 07/02/2019, 04/17/2011; outside left screening mammogram dated 04/05/2019 Baggage Agent Supervisor: ZAFAR Transcribe Date/Time: Sep 28 2019 10:35A Dictated by : BILLIE EISENBERG MD This examination was interpreted and the report reviewed and electronically signed by: BILLIE EISENBERG MD on Sep 28 2019 9:50AM EST This document has been addended by: BILLIE EISENBERG MD on Sep 28 2019 10:36AM EST [id number] [facility] GI FLUORO CHEST SNIFF TESTon [...] NO FLUOROSCOPIC EVIDENCE OF RIGHT DIAPHRAGMATIC PARALYSIS. Baggage Agent Supervisor: ZAFAR Transcribe Date/Time: Sep 28 2019 10:30A Dictated by : BILLIE EISENBERG MD This examination was interpreted and the report reviewed and electronically signed by: BILLIE EISENBERG MD on Sep 28 2019 10:35AM EST [id number] [facility] PROGRESSon 09-28-2019 PROGRESS HNO ID: [id number] Author: Lima (Rt) Wall Service: Radiology Author Type: Roof Assembler Type: Progress Notes Filed: 09/28/2019 10:19 AM [...] RT Zee September 28, 2019 10:18 AM [facility] PROGRESS HNO ID: [id number] Author: Cathi Robles (Rt) Service: Radiology Author Type: Roof Assembler Type: Progress Notes Filed: 09/28/2019 9:28 AM [...] RT Lokesh September 28, 2019 9:25 AM [facility] Coding Summary.on 05-09-2017 Coding Summary. CODING DATE: 018 FINAL [facility] STATUS: Home (Routine DC) PAYOR: Medicare [...] Katya Navarrete Date Saved: 05/09/2017 07:09 am [facility] Vital Signs Date Time Vital Sign Value Performing Clinician Facility 02-02-2024 15:46-0500 Body height 170.2 cm Shaw Francois MD Work Phone: [facility] 02-02-2024 15:46-0500 Body mass index (BMI) [Ratio] 26.94 kg/m2 Shaw Francois MD Work Phone: [facility] 02-02-2024 15:46-0500 Body weight 78.02 kg Shaw Francois MD Work Phone: [facility] 02-02-2024 15:46-0500 Diastolic blood pressure 74 mm[Hg] Shaw Francois MD Work Phone: [facility] 02-02-2024 15:46-0500 Heart rate 71 /min Shaw Francois MD Work Phone: [facility] 02-02-2024 15:46-0500 SaO2% (BldA) [Mass fraction] 99 % Shaw Francois MD Work Phone: [facility] 02-02-2024 15:46-0500 Systolic blood pressure 126 mm[Hg] Shaw Francois MD Work Phone: [facility] 09-02-2023 12:21-0400 Body height 166.37 cm II Shaw Francois Work Phone: [facility] 09-02-2023 07:47-0400 Body temperature 97.4 [degF] II Shaw Francois Work Phone: [facility] 09-02-2023 07:47-0400 Diastolic blood pressure 58 mm[Hg] II Shaw Francois Work Phone: [facility] 09-02-2023 07:47-0400 Heart rate 51 /min II Shaw Francois Work Phone: [facility] 09-02-2023 07:47-0400 Respiratory rate 16 /min II Shaw Francois Work Phone: [facility] 09-02-2023 07:47-0400 SaO2% (BldA) [Mass fraction] 97 % II Shaw Francois Work Phone: [facility] 09-02-2023 07:47-0400 Systolic blood pressure 100 mm[Hg] II Shaw Farncois Work Phone: [facility] 09-02-2023 05:39-0400 Body weight 86.8 kg II Shaw Francois Work Phone: [facility] 09-01-2023 17:15-0400 Inhaled oxygen flow rate 1 L/min II Shaw Francois Work Phone: [facility] 09-01-2023 10:25-0400 Body mass index (BMI) [Ratio] 29 kg/m2 II Shaw Francois Work Phone: [facility] 06-26-2023 11:43-0400 Body height 170.18 cm II Shaw Francois Work Phone: [facility] 06-26-2023 11:43-0400 Body mass index (BMI) [Ratio] 27.3 kg/m2 II Shaw Francois Work Phone: [facility] 06-26-2023 11:43-0400 Body weight 79.37 kg II Shaw Francois Work Phone: [facility] 06-10-2022 10:20-0400 Body height 168 cm Garrett Beltrán MD Work Phone: [facility] 06-10-2022 10:20-0400 Body temperature 97.39 [degF] Garrett Beltrán MD Work Phone: [facility] 06-10-2022 10:20-0400 Body weight 80.74 kg Garrett Beltrán MD Work Phone: [facility] 06-10-2022 10:20-0400 Diastolic blood pressure 63 mm[Hg] Garrett Beltrán MD Work Phone: [facility] 06-10-2022 10:20-0400 Heart rate 68 /min Garrett Beltrán MD Work Phone: [facility] 06-10-2022 10:20-0400 Respiratory rate 16 /min Garrett Beltrán MD Work Phone: [facility] 06-10-2022 10:20-0400 SaO2% (BldA) [Mass fraction] 97 % Garrett Beltrán MD Work Phone: [facility] 06-10-2022 10:20-0400 Systolic blood pressure 133 mm[Hg] Garrett Beltrán MD Work Phone: [facility] 06-04-2021 10:09-0400 Body height 168 cm Garrett Beltrán MD Work Phone: [facility] 06-04-2021 10:09-0400 Body temperature 97.5 [degF] Garrett Beltrán MD Work Phone: [facility] 06-04-2021 10:09-0400 Body weight 83.01 kg Garrett Beltrán MD Work Phone: [facility] 06-04-2021 10:09-0400 Diastolic blood pressure 53 mm[Hg] Garrett Beltrán MD Work Phone: [facility] 06-04-2021 10:09-0400 Heart rate 66 /min Garrett Beltrán MD Work Phone: [facility] 06-04-2021 10:09-0400 Respiratory rate 16 /min Garrett Beltrán MD Work Phone: [facility] 06-04-2021 10:09-0400 SaO2% (BldA) [Mass fraction] 95 % Garrett Beltrán MD Work Phone: [facility] 06-04-2021 10:09-0400 Systolic blood pressure 128 mm[Hg] Garrett Beltrán MD Work Phone: [facility] Encounters Encounter Date Encounter Type Care Provider Facility Start: 05-04-2024 End: 05-04-2024 ambulatory ABHILASH CALI Not Available Start: 04-12-2024 End: 04-12-2024 Patient encounter procedure Shaw Francois II [facility] Work Phone: Start: 04-12-2024 End: 04-12-2024 ambulatory Shaw Francois II Work Phone: [facility] Work Phone: Start: 04-02-2024 End: 04-02-2024 Bamboo flowsheet Shaw Francois MD Work Phone: [facility] Start: 04-02-2024 End: 04-02-2024 Bamboo flowsheet Shaw Francois MD Work Phone: [facility] Start: 04-02-2024 End: 04-02-2024 ambulatory SHAW FRANCOIS Not Available Start: 03-29-2024 End: 03-29-2024 Clinisync Result Encounter Generic External Data Provider [facility] Unsolicited Start: 03-29-2024 End: 03-29-2024 Clinisync Result Encounter Generic External Data Provider [facility] Unsolicited Start: 03-22-2024 End: 03-22-2024 Clinisync Result Encounter Shaikh Michael ALVARADO Work Phone: [facility] Unsolicited Start: 03-22-2024 End: 03-22-2024 Clinisync Result Encounter Shaikh Michael ALVARADO Work Phone: [facility] Unsolicited Start: 03-15-2024 End: 03-15-2024 Clinisync Result Encounter Shaikh Michael ALVARADO Work Phone: [facility] Unsolicited Start: 03-15-2024 End: 03-15-2024 Clinisync Result Encounter Shaikh Michael ALVARADO Work Phone: [facility] Unsolicited Start: 03-08-2024 End: 03-08-2024 Clinisync Result Encounter Shaikh Michael ALVARADO Work Phone: [facility] Unsolicited Start: 03-08-2024 End: 03-08-2024 Clinisync Result Encounter Shaikh Michael ALVARADO Work [...] healing, subsequent encounter (Primary Dx); Depressive disorder (CMS/HCC) Start: 02-02-2024 End: 02-02-2024 ambulatory SHAW FRANCOIS Not Available Start: 02-02-2024 End: 02-02-2024 Bamboo flowsheet Shaw Francois MD Work Phone: [facility] Start: 02-02-2024 End: 02-02-2024 Bamboo flowsheet Shaw Francois MD Work Phone: [facility] Start: 01-16-2024 End: 01-18-2024 ambulatory CAROLINE [facility] Start: 01-16-2024 End: 01-18-2024 Subsequent hospital visit by physician [facility] Additional Xray At [facility] Comment on above: Closed fracture of n tricia of left femur, initial encounter ([facility]) Start: 12-26-2023 End: 12-28-2023 Clinisync Result Encounter Generic External Data Provider [facility] Unsolicited Start: 12-26-2023 End: 12-28-2023 Clinisync Result Encounter Generic External Data Provider [facility] Unsolicited Start: 12-03-2023 End: 12-03-2023 ambulatory SHAW FRANCOIS Not Available Start: 11-25-2023 End: 11-25-2023 ambulatory II Shaw Francois Work Phone: [facility] Work Phone: Start: 11-25-2023 End: 11-25-2023 Patient encounter procedure II Shaw Francois Work Phone: [facility] Work Phone: Start: 11-20-2023 End: 11-20-2023 Bamboo flowsheet Antonette Marcusy ROTARY DERRICK OPERATOR [facility] Start: 11-20-2023 End: 11-20-2023 Bamboo flowsheet Antonette Camposbley ROTARY DERRICK OPERATOR [facility] Start: 11-20-2023 End: 11-20-2023 Admission to same day surgery center Antonette Marcusy ROTARY DERRICK OPERATOR [facility] Comment on above: Acute pain of right knee (Primary Dx); Aftercare following right knee joint replacement surgery; Knee stiffness, right Start: 11-20-2023 End: 11-20-2023 ambulatory Antonette Marcusy ROTARY DERRICK OPERATOR [facility] Start: 11-18-2023 End: 11-18-2023 Bamboo flowsheet Antonette Gunn ROTARY DERRICK OPERATOR [facility] Start: 11-18-2023 End: 11-18-2023 Bamboo flowsheet Antonette Gunn ROTARY DERRICK OPERATOR [facility] Start: 11-18-2023 End: 11-18-2023 Admission to same day surgery center Antonette Gnun ROTARY DERRICK OPERATOR [facility] Comment on above: Acute pain of right knee (Primary Dx); Aftercare following right knee joint replacement surgery; Knee stiffness, right Start: 11-18-2023 End: 11-18-2023 ambulatory Antonette Gunn ROTARY DERRICK OPERATOR [facility] Start: 11-13-2023 End: 11-13-2023 Admission to same day surgery center Antonette Gunn ROTARY DERRICK OPERATOR [facility] Comment on above: Acute pain of right knee (Primary Dx); Aftercare following right knee joint replacement surgery; Knee stiffness, right Start: 11-13-2023 End: 11-13-2023 ambulatory Antonette Gunn ROTARY DERRICK OPERATOR [facility] Start: 11-13-2023 End: 11-13-2023 Bamboo flowsheet Antonette Gunn ROTARY DERRICK OPERATOR [facility] Start: 11-13-2023 End: 11-13-2023 Bamboo flowsheet Antonette Gunn ROTARY DERRICK OPERATOR [facility] Start: 11-11-2023 End: 11-11-2023 Admission to same day surgery center Antonette Gunn ROTARY DERRICK OPERATOR [facility] Comment on above: Acute pain of right knee (Primary Dx); Aftercare following right knee joint replacement surgery; Knee stiffness, right Start: 11-11-2023 End: 11-11-2023 ambulatory Antonette Gunn ROTARY DERRICK OPERATOR [facility] Start: 11-05-2023 End: [...] 10-31-2023 End: 10-31-2023 Bamboo flowsheet Antonette Camposbley ROTARY DERRICK OPERATOR [facility] Start: 10-31-2023 End: 10-31-2023 Bamboo flowsheet Antonette Camposbley ROTARY DERRICK OPERATOR [facility] Start: 10-31-2023 End: 10-31-2023 Admission to same day surgery center Antonette Gunn ROTARY DERRICK OPERATOR [facility] Comment on above: Acute pain of right knee (Primary Dx); Aftercare following right knee joint replacement surgery; Knee stiffness, right Start: 10-31-2023 End: 10-31-2023 ambulatory Antonette Marcusy ROTARY DERRICK OPERATOR [facility] Start: 10-29-2023 End: 10-29-2023 Bamboo flowsheet Antonette Camposbley ROTARY DERRICK OPERATOR [facility] Start: 10-29-2023 End: 10-29-2023 Bamboo flowsheet Antonette Camposbley ROTARY DERRICK OPERATOR [facility] Start: 10-29-2023 End: 10-29-2023 Admission to same day surgery center Antonette Marcusy ROTARY DERRICK OPERATOR [facility] Comment on above: Acute pain of right knee (Primary Dx); Aftercare following right knee joint replacement surgery; Knee stiffness, right Start: 10-29-2023 End: 10-29-2023 ambulatory Antonette Camposbley ROTARY DERRICK OPERATOR [facility] Start: 10-24-2023 End: 10-24-2023 Bamboo flowsheet Antonette Camposbley ROTARY DERRICK OPERATOR [facility] Start: 10-24-2023 End: 10-24-2023 Bamboo flowsheet Antonette Andresbley ROTARY DERRICK OPERATOR [facility] Start: 10-24-2023 End: 10-24-2023 Admission to same day surgery center Antonette Marcusy ROTARY DERRICK OPERATOR [facility] Comment on above: Acute pain of right knee (Primary Dx); Aftercare following right knee joint replacement surgery; Knee stiffness, right Start: 10-24-2023 End: 10-24-2023 ambulatory Antonette Gunn ROTARY DERRICK OPERATOR [facility] Start: 10-21-2023 End: 10-21-2023 Bamboo flowsheet Antonette Marcusy ROTARY DERRICK OPERATOR [facility] Start: 10-21-2023 End: 10-21-2023 Bamboo flowsheet Antonette Marcusy ROTARY DERRICK OPERATOR [facility] Start: 10-21-2023 End: 10-21-2023 Admission to same day surgery center Antonette Gunn ROTARY DERRICK OPERATOR [facility] Comment on above: Acute pain of right knee (Primary Dx); Aftercare following right knee joint replacement surgery; Knee stiffness, right Start: 10-21-2023 End: 10-21-2023 ambulatory Antonette Gunn ROTARY DERRICK OPERATOR [facility] Start: 10-17-2023 End: 10-17-2023 Bamboo flowsheet Antonette Marcusy ROTARY DERRICK OPERATOR [facility] Start: 10-17-2023 End: 10-17-2023 Bamboo flowsheet Antonette Marcusy ROTARY DERRICK OPERATOR [facility] Start: 10-17-2023 End: 10-17-2023 Admission to same day surgery center Antonette Marcusy ROTARY DERRICK OPERATOR [facility] Comment on above: Acute pain of right knee (Primary Dx); Aftercare following right knee joint replacement surgery; Knee stiffness, right Start: 10-17-2023 End: 10-17-2023 ambulatory Antonette Gunn ROTARY DERRICK OPERATOR [facility] Start: 10-15-2023 End: 10-15-2023 Bamboo flowsheet Antonette Marcusy ROTARY DERRICK OPERATOR [facility] Start: 10-15-2023 End: 10-15-2023 Bamboo flowsheet Antonette Marcusy ROTARY DERRICK OPERATOR [facility] Start: 10-15-2023 End: 10-15-2023 Patient encounter procedure II Shaw Alessandro Work Phone: [facility] Work Phone: Start: 10-15-2023 End: 10-15-2023 ambulatory ANTONETTE GUNN Not Available Start: 10-15-2023 End: 10-15-2023 Admission to same day surgery center Antonette Gunn ROTARY DERRICK OPERATOR [facility] Comment on above: Acute pain of right knee (Primary Dx); Aftercare following right knee joint replacement surgery; Knee stiffness, right Start: 10-15-2023 End: 10-15-2023 ambulatory MARIA ELENA Francois Work Phone: [facility] Start: 10-09-2023 End: 10-09-2023 Bamboo flowsheet Antonette Marcusy ROTARY DERRICK OPERATOR [facility] Start: 10-09-2023 End: 10-09-2023 Bamboo flowsheet Antonette Marcusy ROTARY DERRICK OPERATOR [facility] Start: 10-09-2023 End: 10-09-2023 Admission to same day surgery center Antonette Marcusy ROTARY DERRICK OPERATOR [facility] Comment on above: Acute pain of right knee (Primary Dx); Aftercare following right knee joint replacement surgery; Knee stiffness, right Start: 10-09-2023 End: 10-09-2023 ambulatory Antonette Marcusy ROTARY DERRICK OPERATOR [facility] Start: 10-06-2023 End: 10-06-2023 Bamboo flowsheet Pilo Brink ROTARY DERRICK OPERATOR [facility] Start: 10-06-2023 End: 10-06-2023 Bamboo flowsheet Pilo Cazaresink ROTARY DERRICK OPERATOR [facility] Start: 10-06-2023 End: 10-06-2023 Admission to same day surgery center Pilo Brink ROTARY DERRICK OPERATOR [facility] Comment on above: Acute pain of right knee (Primary Dx); Aftercare following right knee joint replacement surgery; Knee stiffness, right Start: 10-06-2023 End: 10-06-2023 ambulatory Pilo Cazaresink ROTARY DERRICK OPERATOR [facility] Start: 10-01-2023 End: 10-01-2023 Bamboo flowsheet Antonette Marcusy ROTARY DERRICK OPERATOR [facility] Start: 10-01-2023 End: 10-01-2023 Bamboo flowsheet Antonette Marcusy ROTARY DERRICK OPERATOR [facility] Start: 10-01-2023 End: 10-01-2023 Admission to same day surgery center Antonette Marcusy ROTARY DERRICK OPERATOR [facility] Comment on above: Acute pain of right knee (Primary Dx); Aftercare following right knee joint replacement surgery; Knee stiffness, right Start: 10-01-2023 End: 10-01-2023 ambulatory Antonette Marcusy ROTARY DERRICK OPERATOR [facility] Start: 09-29-2023 End: 09-29-2023 ambulatory JACKIE PERSAUD Not Available Start: 09-26-2023 End: 09-26-2023 ambulatory ANTONETTE GUNN Not Available Start: 09-24-2023 End: 09-24-2023 ambulatory JACKIE PERSAUD Not Available Start: 09-18-2023 End: 09-18-2023 ambulatory II Shaw Francois Work Phone: [facility] Work Phone: Start: 09-18-2023 End: 09-18-2023 Patient encounter procedure II Shaw Francois Work Phone: [facility] Work Phone: Start: 09-02-2023 Non-patient / Non-visit II Giovani Francois Work Phone: [facility] Work Phone: Start: 09-01-2023 End: 09-02-2023 Admission to same day surgery center II Shaw Francois Work Phone: [facility] [place] Start: 09-01-2023 End: 09-02-2023 ambulatory II Shaw Francois Work Phone: [facility] Work Phone: Start: 09-01-2023 Non-patient / Non-visit II Giovani Francois Work Phone: [facility] Work Phone: Start: 08-22-2023 End: 08-22-2023 ambulatory II Shaw Francois Work Phone: [facility] Work Phone: Start: 08-22-2023 End: 08-22-2023 Patient encounter procedure II Shaw Francois Work Phone: [facility] Work Phone: Start: 08-21-2023 End: 08-21-2023 Patient encounter procedure II Shaw Francois Work Phone: [facility] Work Phone: Start: 08-21-2023 End: 08-21-2023 Discharged Recurring II Shaw Francois Work Phone: [facility] [place] Start: 08-21-2023 Registered Recurring II Shaw Francois Work Phone: [facility] [place] Start: 08-21-2023 End: 08-21-2023 ambulatory II Shaw Francois Work Phone: [facility] Work Phone: Start: 08-21-2023 End: 08-21-2023 Patient encounter procedure II Shaw Francois Work Phone: [facility] Start: 08-21-2023 End: 08-21-2023 ambulatory II Shaw Francois Work Phone: [facility] Work Phone: Start: 08-18-2023 End: 08-18-2023 Patient encounter procedure II Shaw Francois Work Phone: [facility] Work Phone: Start: 08-18-2023 End: 08-18-2023 ambulatory II Shaw Francois Work Phone: [facility] Work Phone: Start: 08-18-2023 Encounter for preprocedural laboratory examination Jeevan Sanchez II [facility] Start: 07-24-2023 End: 07-24-2023 ambulatory SHAW FRANCOIS Not Available Start: 07-17-2023 End: 07-17-2023 ambulatory II Shaw Francois Work Phone: [facility] Work Phone: Start: 07-17-2023 End: 07-17-2023 Patient encounter procedure II Shaw Francois Work Phone: [facility] Work Phone: Start: 07-14-2023 End: 07-14-2023 ambulatory SHAW FRANCOIS Not Available Start: 06-26-2023 End: 06-26-2023 Patient encounter procedure II Shaw Francois Work Phone: [facility] Work Phone: Start: 06-26-2023 End: 06-26-2023 Patient encounter procedure II Shaw Francois Work Phone: [facility] Start: 06-26-2023 End: 06-26-2023 ambulatory II Shaw Francois Work Phone: [facility] Work Phone: Start: 06-10-2022 End: 06-10-2022 ambulatory GARRETT BELTRÁN Facility:[facility] Start: 06-10-2022 End: 06-10-2022 Office outpatient [...] encounter procedure II Shaw Francois Work Phone: [facility] Start: 05-08-2017 End: 05-09-2017 Ambulatory SHAW FRANCOIS Facility:[facility] Procedures Date Procedure Procedure Detail Performing Clinician Start: 04-12-2024 X-ray of left knee, four views Shaw Francois II Work Phone: Start: 03-29-2024 Radex hip unilateral with pelvis 2-3 views Generic External Data Provider Start: 03-22-2024 ALL CBC WITH AUTO DIFF Shaikh Michael ALVARADO Work Phone: Start: 03-15-2024 ALL CBC WITH AUTO DIFF Shaikh Michael ALVARADO Work Phone: Start: 03-08-2024 ALL CBC WITH AUTO DIFF Shaikh Michael ALVARADO Work Phone: Start: 03-05-2024 ALL CBC WITH AUTO DIFF [...] Surgery: [id number] Result Comment: PERF ORMED BY: [facility] [address] [place] [address] PATHOLOGIST HOME HEALTH TRAVEL OT CAMILO SEBASTIAN M.D. Start: 07-17-2023 Methicillin resistan t Staphylococcus aureus culture II Shaw Francois Work Phone: Start: 06-26-2023 Plain X-ray of left hip II Shaw Francois Work Phone: Start: 06-26-2023 X-ray of right knee II Shaw Francois Work Phone: Start: 2019 Adult depression screening assessment Garrett Beltrán MD Work Phone: Start: 08-17-2015 H/O: hysterectomy History of hysterectomy Antonette Gunn ROTARY DERRICK OPERATOR Plan of Treatment Date Care Activity Detail Author Start: 06-04-2024 DIABETES SCREEN DIABETES SCREEN [facility] Start: 04-15-2024 End: 04-15-2024 Patient encounter procedure 04/15/2024 12:05 PM EST Office Visit [facility] [address] [place] [address] Megan Dutta MD [address] [place] [address] [facility] Start: 04-15-2024 End: 04-15-2024 Patient encounter procedure [facility] Start: 04-12-2024 X-ray of left knee, four views XR knee LT 4V* [facility] Start: 04-12-2024 XR Knee - left 4 Views [facility] Start: 04-02-2024 End: 04-02-2024 Patient encounter procedure 04/02/2024 9:15 AM EST Office Visit [facility] [address] [place] [address] Shaw Francois MD [address] [place] [address] Arrived [facility] Comment on above: Arrived Start: 03-09-2024 End: 03-09-2024 Patient encounter procedure 03/09/2024 2:00 PM EST Office Visit [facility] [address] [place] [address] Jennifer Elliott PA [address] [place] [address] [facility] Start: 02-09-2024 End: 02-09-2024 Patient encounter procedure 02/09/2024 2:00 PM EST Office Visit [facility] [address] [place] [address] Shaw Francois MD [address] [place] [address] [facility] Start: 02-02-2024 End: 02-02-2024 Patient encounter procedure 02/02/2024 4:00 PM EST Office Visit [facility] [address] [place] [address] Shaw Francois MD [address] [place] [address] Arrived [facility] Comment on above: Arrived Start: 12-17-2023 Medicare Annual Well ness (AWV) Medicare Annual Wellness (AWV) [facility] Start: 11-25-2023 Plain X-ray of right femur XR femur RT 2V* [facility] Start: 11-25-2023 Plain X-ray of right tibia and right fibula XR tibia fibula RT 2V* [facility] Start: 11-25-2023 X-ray of right knee, two views XR knee RT 2V [facility] Start: 11-25-2023 XR Femur - right 2 Views [facility] Start: 11-25-2023 XR Knee - right 2 Views [facility] Start: 11-25-2023 XR Tibia and Fibula - right 2 Views [facility] Start: 11-21-2023 End: 11-21-2023 ambulatory 11/21/2023 12:30 PM EDT Treatment [facility] [address] [place] [address] Antonette Gunn, ROTARY DERRICK OPERATOR [facility] Start: 11-20-2023 End: 11-20-2023 ambulatory [facility] Comment on above: Arrived Start: 11-18-2023 End: 11-18-2023 ambulatory 11/18/2023 12:30 PM EDT Treatment [facility] [address] [place] [address] Antonette Gunn, ROTARY DERRICK OPERATOR [facility] Start: 11-13-2023 End: 11-13-2023 ambulatory 11/13/2023 2:30 PM EDT Treatment [facility] [address] [place] [address] Antonette Gunn, ROTARY DERRICK OPERATOR [facility] Start: 11-11-2023 End: 11-11-2023 ambulatory 11/11/2023 12:30 PM EDT Treatment [facility] [address] [place] [address] Sosa Gunnissa, ROTARY DERRICK OPERATOR [facility] Start: 11-05-2023 End: 11-05-2023 ambulatory [facility] Comment on above: Arrived Start: 10-31-2023 End: 10-31-2023 ambulatory 10/31/2023 12:00 PM EDT Treatment [facility] [address] [place] [address] Antonette Gunn, ROTARY DERRICK OPERATOR [facility] Start: 10-29-2023 End: 10-29-2023 ambulatory 10/29/2023 12:30 PM EDT Treatment [facility] [address] [place] [address] Antonette Gunn, ROTARY DERRICK OPERATOR [facility] Start: 10-24-2023 End: 10-24-2023 ambulatory [facility] Comment on above: Arrived Start: 10-21-2023 End: 10-21-2023 Admission to same day surgery center 10/21/2023 1:00 PM EDT Treatment [facility] [address] [facility] [address] [place] [address] Antoentte Gunn, ROTARY DERRICK OPERATOR Acute pain of right knee (Primary Dx); Aftercare following right knee joint replacement surgery; Knee stiffness, right [facility] Comment on above: Acute pain of right knee (Primary Dx); Aftercare following right knee joint replacement surgery; Knee stiffness, right Start: 10-21-2023 End: 10-21-2023 ambulatory 10/21/2023 1:00 PM EDT Treatment [facility] [address] [facility] [address] [place] [address] Antonette Gunn, ROTARY DERRICK OPERATOR [facility] Start: 10-17-2023 End: 10-17-2023 ambulatory [facility] Start: 10-15-2023 X-ray of right knee XR knee RT 3V - NOT FOR ER USE [facility] Start: 10-15-2023 XR Knee - right 3 Views [facility] Start: 10-15-2023 End: 10-15-2023 ambulatory 10/15/2023 11:00 AM EDT Treatment [facility] [address] [facility] [facility] [address] [place] [address] Antonette Gunn, ROTARY DERRICK OPERATOR [facility] Start: 10-12-2023 COVID-19 Vaccine ( season) COVID-19 Vaccine ( season) [facility] Start: 10-12-2023 Influenza vaccination Influenza Vacc ine (#1) [facility] Start: 10-09-2023 End: 10-09-2023 ambulatory [facility] Comment on above: Arrived Start: 10-06-2023 End: 10-06-2023 Admission to same day surgery center 10/06/2023 11:30 AM EDT Treatment [facility] [address] [place] [address] Pilo Brody, OBINNA Acute pain of right knee (Primary Dx); Aftercare following right knee joint replacement surgery; Knee stiffness, right [facility] Comment on above: Acute pain of right knee (Primary Dx); Aftercare following right knee joint replacement surgery; Knee stiffness, right Start: 10-06-2023 End: 10-06-2023 ambulatory 10/06/2023 11:30 AM EDT Treatment [facility] [address] [place] [address] Pilo Brody PTA [facility] Start: 10-01-2023 End: 10-01-2023 ambulatory 10/01/2023 11:00 AM EDT Treatment [facility] [address] [place] [address] Antonette Gunn PTA Arrived [facility] Comment on above: Arrived Start: 09-03-2023 [facility] Start: 09-02-2023 [facility] Start: 09-01-2023 Hospital admission [facility] Start: 09-01-2023 Referral to clinical operations controller [facility] Start: 09-01-2023 Referral to rehabilitation physician [facility] Start: 08-21-2023 Plain X-ray of right femur XR femur RT 2V* [facility] Start: 08-21-2023 Plain X-ray of right tibia and right fibula XR tibia fibula RT 2V* [facility] Start: 08-21-2023 XR Femur - right 2 Views [facility] Start: 08-21-2023 XR Tibia and Fibula - right 2 Views [facility] Start: 08-18-2023 Bacteria identified in Urine by Culture [facility] Start: 08-18-2023 [facility] Start: 07-17-2023 Methicillin resistan t Staphylococcus aureus [Presence] in Unspecified specimen by Organism specific culture [facility] Start: 07-17-2023 [facility] Start: 07-17-2023 MRSA Culture MRSA Culture [facility] Start: 06-11-2023 End: 06-11-2023 CBC W Auto Differential panel - Blood CBC + DIFF Lab Routine Breast screening Expected: 06/11/2023 (Approximate), Expires: 06/11/2023 [facility] Work Phone: Comment on above: Expected: 06/11/2023 (Approximate), Expires: 06/11/2023 Start: 06-11-2023 End: 06-11-2023 Comprehensive metabolic 2000 panel - Serum or Plasma COMP METABOLIC PANEL Lab Routine Breast screening Expected: 06/11/2023 (Approximate), Expires: 06/11/2023 [facility] Work Phone: Comment on above: Expected: 06/11/2023 (Approximate), Expires: 06/11/2023 Start: 06-11-2023 End: 07-10-2023 TORRES SCREENING TORRES SCREENING Radiology Routine Breast screening Expected: 06/11/2023 (Approximate), Expires: 07/10/2023 [facility] Work Phone: Comment on above: Expected: 06/11/2023 (Approximate), Expires: 07/10/2023 Start: 02-10-2023 Annual Wellness Visi t (Medicare Advantage) Annual Wellness Visit (Medicare Advantage) [facility] Start: 06-03-2022 End: 06-04-2022 CBC W Auto Differential panel - Blood CBC + DIFF Lab Routine Breast screening Malignant 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, estrogen receptor positive, unspecified site of breast (HCC) Expected: 06/03/2022 (Approximate), Expires: 06/04/2022 [facility] Work Phone: Comment on above: Expected: 06/03/2022 (Approximate), Expires: 06/04/2022 Start: 06-03-2022 End: 06-04-2022 Comprehensive metabolic 2000 panel - Serum or Plasma COMP METABOLIC PANEL Lab Routine Breast screening Malignant 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, estrogen receptor positive, unspecified site of breast (HCC) Expected: 06/03/2022 (Approximate), Expires: 06/04/2022 [facility] Work Phone: Comment on above: Expected: 06/03/2022 (Approximate), Expires: 06/04/2022 Start: 05-31-2022 End: 07-04-2022 Screening mammography bi 2-view breast inc cad TORRES SCREENING Radiology Routine Breast screening Malignant 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, estrogen receptor positive, unspecified site of breast (HCC) Expected: 05/31/2022 (Approximate), Expires: 07/04/2022 [facility] Work Phone: Comment on above: Expected: 05/31/2022 (Approximate), Expires: 07/04/2022 Start: 02-10-2022 ADVANCE DIRECTIVE DISCUSSION ADVANCE DIRECTIVE DISCUSSION [facility] Start: 02-10-2022 DEPRESSION ASSESSMENT DEPRESSION ASS ESSMENT [facility] Start: 02-10-2021 ADVANCE DIRECTIVE DISCUSSION ADVANCE DIRECTIVE DISCUSSION [facility] Start: 11-09-2020 Adult depression screening assessment DEPRESSION SCREENING [facility] Start: 11-09-2018 Respiratory Syncytia l Virus (RSV) or age 60 yrs+ (1 - 1-dose 75+ series) Respiratory Syncytial Virus (RSV) or age 60 yrs+ (1 - 1-dose 75+ series) [facility] Start: 11-09-2008 BONE DENSITY BONE DENSITY [facility] Start: 11-09-2008 Pneumococcal Vaccine : 65+ Years (1 of 1 - PCV) Pneumococcal Vaccine: 65+ Years (1 of 1 - PCV) [facility] Start: 11-09-1993 Shingles vaccine (1 of 2) Bearden gles vaccine (1 of 2) [facility] Start: 11-09-1993 SHINGRIX VACCINE (1 of 2) BEARDEN GRIX VACCINE (1 of 2) [facility] Start: 11-09-1962 DTaP/Tdap/Td vaccine (1 - Tdap) DTaP/Tdap/Td vaccine (1 - Tdap) [facility] Start: 11-09-1962 Urine microalbumin profile DTAP,TDAP,TD (1 - Tdap) [facility] Start: 11-09-1961 HEPATITIS C SCREENING HEPATITIS C SC REENING [facility] Start: 1955 Depression Screen Depression Screen [facility] AEROBIC CULTURE AEROBIC CULTURE Lab Routine 02/24/2024 6:00 PM EST [facility] ANAEROBIC CULTURE ANAEROBIC CULT URE Lab Routine 02/24/2024 6:00 PM [facility] BLOOD CULTURE 1 BLOOD CULTURE 1 Lab Routine 02/21/2024 1:32 PM EST [facility] Cotinine [Mass/volum e] in Serum or Plasma [facility] Glucose measurement estimated from glycated hemoglobin [facility] Hemoglobin [Mass/vol ume] in Blood [facility] Nicotine [Mass/volum e] in Serum or Plasma [facility] Patient Education 3M Prevana Plu s 125 Therapy Know your Meds [facility] Work Phone: Patient referral [facility] Work Phone: [facility] Immunizations Immunization Date Immunization Notes Care Provider [facility] 12-03-2023 Influenza, High-dose Seasonal, Quadrivalent, Preservative Free Generic Provider [facility] 12-02-2022 influenza, seasonal, injectable Antonette Angelinegisell [facility] 12-02-2022 influenza virus vacc ine, unspecified formulation Antonette Gunn [facility] 12-12-2021 Influenza, Seasonal, Quadrivalent, Adjuvanted Antonette Angelique [facility] 11-27-2021 COVID-19 mRNA Bivale nt Booster (Pfizer) MARIA ELENA Francois Work Phone: [facility] 11-24-2020 COVID-19 mRNA, Comir leonie (Pfizer) MARIA ELENA Francois Work Phone: [facility] 11-17-2020 influenza (aIIV4) vaccine, age 65+ yr, quadrivalent, PF (FLUAD QUADRIVALENT) Garrett Beltrán MD Work Phone: [facility] 03-31-2020 COVID-19 mRNA, Comir leonie (Pfizer) MARIA ELENA Francois Work Phone: [facility] 03-10-2020 COVID-19 mRNA, Comir leonie (Pfizer) MARIA ELENA Francois Work Phone: [facility] 12-07-2019 influenza, high-dose , quadrivalent vaccine (FLUZONE HIGH DOSE QUADRIVALENT) Garrett Beltrán MD Work Phone: [facility] 12-07-2019 pneumococcal conjuga te vaccine, 13 valent Garrett Beltrán MD Work Phone: [facility] 11-24-2019 influenza, seasonal, injectable Garrett Beltrán MD Work Phone: [facility] 11-11-2019 pneumococcal conjuga te vaccine, 13 valent Garrett Beltrán MD Work Phone: [facility] 11-17-2018 influenza, high dose seasonal, preservative-free Antonette Gunn [facility] 11-14-2018 influenza, high dose seasonal, preservative-free Garrett Beltrán MD Work Phone: [facility] 11-24-2017 influenza, high dose seasonal, preservative-free Garrett Beltrán MD Work Phone: [facility] 12-11-2016 influenza, high dose seasonal, preservative-free Garrett Beltrán MD Work Phone: [facility] 11-28-2015 influenza, injectabl e, quadrivalent, contains preservative Garrett Beltrán MD Work Phone: [facility] 07-11-2012 pneumococcal polysaccharide vaccine, 23 valent Garrett Beltrán MD Work Phone: [facility] 11-28-2008 influenza virus vacc ine, whole virus Garrett Beltrán MD Work Phone: [facility] Payers Date Payer Category Payer Unknown [id number] 2023 Self-pay [id number] 2023 Medicare (Managed Care) 1.2. [id number] 2023 Unknown [id number] 2021 Unknown ANTHEM BLUE CROS S AND BLUE SHIELD ANTHEM MEDIBLUE HMO [id number] 2021-Present [phone] [address] [place] [address] HMO [id number] .[id number] 2020 Unknown [id number] 2017 Unknown [id number] 2008 Medicare [id number]. [id number] .[id number] 1943 Unknown [id number] 2.16.840.1.906008.3.579.2 .593 1943 Unknown [id number] 2.16.840.1.854515.3.579.2 .174 1943 Unknown [id number] 2.16.840.1.025436.3.579.2 .174 1943 Unknown [id number] 2.16.840.1.359949.3.579.2 .1259 1943 Unknown [id number] 2.16.840.1.400087.3.579.2 .125 1943 Unknown [id number] 2.16.840.1.220882.3.579.2 .125 1943 Unknown [id number] 2.16.840.1.090146.3.579.2 .125 1943 Unknown [id number] 2.16.840.1.616866.3.579.2 .1259 1943 Unknown [id number] 2.16.840.1.585120.3.579.2 .1259 1943 Unknown [id number] 2.16.840.1.902440.3.579.2 .1258 1943 Unknown [id number] 2.16.840.1.304307.3.579.2 .1258 1943 Unknown [id number] 2.16.840.1.523385.3.579.2 .1258 1943 Unknown [id number] 2.16.840.1.114325.3.579.2 .1258 1943 Unknown [id number] 2.16.840.1.619762.3.579.2 .1258 1943 Unknown [id number] 2.16.840.1.038837.3.579.2 .1258 1943 Unknown [id number] 2.16.840.1.898663.3.579.2 .1258 1943 Unknown [id number] 2.16.840.1.961224.3.579.2 .1258 1943 Unknown [id number] 2.16.840.1.302285.3.579.2 .1258 1943 Unknown [id number] 2.16.840.1.202112.3.579.2 .1258 1943 Unknown [id number] 2.16.840.1.436932.3.579.2 .1258 1943 Unknown [id number] 2.16.840.1.814433.3.579.2 .1258 1943 Unknown [id number] 2.16.840.1.671323.3.579.2 .1258 1943 Unknown [id number] 2.16.840.1.925343.3.579.2 .1258 1943 Unknown [id number] 2.16.840.1.653014.3.579.2 .1258 1943 Unknown [id number] 2.16.840.1.525470.3.579.2 .1258 1943 Unknown [id number] 2.16.840.1.431589.3.579.2 .1259 Unknown [id number] 2.16.840.1.176645.3.579.2 .531 Unknown [id number] 2.16.840.1.261051.3.579.2 .531 Unknown [id number] 2.16.840.1.136018.3.579.2 .531 Unknown [id number] 2.16.840.1.298046.3.579.2 .531 Unknown [id number] 2.16.840.1.271742.3.579.2 .531 Unknown [id number] 2.16.840.1.033685.3.579.2 .531 Unknown [id number] 2.16.840.1.795418.3.579.2 .531 Unknown [id number] 2.16.840.1.105623.3.579.2 .531 Unknown [id number] 2.16.840.1.270343.3.579.2 .531 Social History Date Type Detail Facility Tobacco smoking stat [facility] Unknown if ever smoked [facility] Work Phone: Start: 1945 Sex Assigned At Female F [facility] Start: 05-15-2011 End: 09-02-2023 Tobacco smoking status [facility] Never smoked tobacco [facility] Start: 06-04-2021 Alcohol intake Current drinke r of alcohol (finding) [facility] Start: 1945 Sex Assigned At Not on file [facility] Start: 05-25-2021 End: 06-04-2021 Exposure to SARS-CoV-2 (event) Not sure [facility] Start: 05-15-2011 End: 07-24-2022 Tobacco use and exposure Smokeless tobacco non-user [facility] Start: 09-03-2023 End: 03-04-2024 Alcoholic beverage intake Lifetime non-drinker (finding) [facility] Start: 10-09-2022 End: 12-16-2022 History of Social function [facility] Start: 10-09-2022 End: 12-16-2022 Humiliation, Afraid, [...] day, coffee:chocolate [facility] Tobacco smoking stat [facility] Tobacco smoking consumption unknown [facility] Start: 04-12-2024 End: 04-13-2024 Sex Female (finding) [facility] NEGATED: Highlighted row [facility] Medical Equipment Procedure Code Equipment Code Equipment Origin al Text Equipment Identifier Dates Arthroplasty, knee, total, minimally invasive Orthopaedic cement, non-medicated [id number] FDA Start: 09-01-2023 Arthroplasty, knee, total, minimally invasive Uncoated knee femur prosthesis, metallic ()[id number] FDA Start: 09-01-2023 Arthroplasty, knee, total, minimally invasive Tibial insert ()[id number] FDA Start: 09-01-2023 Arthroplasty, knee, total, minimally invasive Polyethylene patella prosthesis ()[id number] FDA Start: 09-01-2023 Arthroplasty, knee, total, minimally invasive Knee stem ()[id number] FDA Start: 09-01-2023 Arthroplasty, knee, total, minimally invasive Uncoated knee tibia prosthesis, metallic ([id number] FDA Start: 09-01-2023 Goals Date Patient Goal Desired Activity /State Functional Status Date Assessment Result Facility 08-18-2023 Functional status Dressing Patient at [facility] Work Phone: Mental Status Date Assessment Result Facility 08-18-2023 Cognitive function Cognitive Sta tus Patient at [facility] Work Phone: Clinical Notes 06-04-2021 to 02-03-2024 Telephone Encounter - EUN Tillman - 02/03/2024 10:57 AM ESTTelephone Encounter - EUN Tillman - 02/03/2024 10:57 AM Aki Francois MD - 02/02/2024 4:00 PM EST Note Date & Type Note Facility 02-03-2024 Telephone encounter Note Form atting of this note might be different from the original. Josh Kaminski at pharmacy, with no recent previous [place] script, cannot provide Rx quantity as written. Updated Rx sent. [facility] 02-03-2024 Miscellaneous Notes Formattin g of this note might be different from the original. Josh Kaminski at pharmacy, with no recent previous [place] script, cannot provide Rx quantity as written. Updated Rx sent. documented in this encounter [facility] 02-02-2024 History of Presen t illness Narrative Images from the original note were not included. HPI Follow-up Additional comments: [facility] stay 12/25/23- 12/29/23 for left femur fracture discharged to [facility] for rehab discharged home 01/17/24 Med Refill Additional comments: Zoloft--[facility] Hydrocodone 5/325 [facility] Last edited by Jacqueline Brito LPN on 02/02/2024 3:49 PM. Subjective Patient ID: Nadia Almeida is a 78 y.o. female who presents for Follow-up ([facility] stay 12/25/23- 12/29/23 for left femur fracture discharged to [facility] for rehab discharged home 01/17/24) and Med Refill (Zoloft--[facility]/Hydrocodone 5/325 [facility]). Pt is sched to follow up with ortho in Feb 2024 Taking norco for pain --working well per pt she would like refill Patient has home PT/OT coming to her home Med Refill Current Outpatient Medications on File Prior to Visit Medication Sig Dispense Refill cholecalciferol (Vitamin D-3) 50 MCG (1999 [place]) [...] ULTRA WOMENS PO) Centrum Silver [DISCONTINUED] HYDROcodone-acetaminophen ([place]) 5-325 MG tablet Take 1 tablet by [...] Past Medical History: Diagnosis Date Breast cancer ([facility]) 2011 right; Dr. Beauchamp Depression ([facility]) Diarrhea Gallbladder disease Gastric ulcer Gastric ulcer [...] soft tissue mass seond intersace left foot [place] EGD TRANSORAL BIOPSY SINGLE/MULTIPLE 05/23/2021 [place] MOHS MICROGRAPHIC H/N/H/F/G 1ST STAGE 5 BLOCKS [...] with routine healing, subsequent encounter - HYDROcodone-acetaminophen ([place]) 5-325 MG tablet; Take 1 tablet by [...] for Routine F/U. documented in this encounter [facility] 11-05-2023 History of Presen t illness [...] PT sessions post right TKA performed on 09-01-23. 8 weeks P.O, amb with SPC mild [...] to be instructed in home exercise program. 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 Date: / documented in this encounter [facility] 09-02-2023 Consult note Note Date/Time September 02, 2023 8:13am [facility] [address] [place] [address] Physiatry (Rehab) Consult Note Signed Patient: Nadia Almeida MR#: [id number] : 1945 Acct:[id number] Age/Sex: 77 / F Adm Date: 4 Loc: 4N Room: 3P8969-2 Type: REG VAC Attending Dr: Jeevan Sanchez II, MD Copies [...] negative unless noted below or in [facility]PI [facility] Depression Numbness and tingling of [...] mg PO QAM 05/22/21 [History Confirmed 09/01/23] paywocuabeuf-sehxmcjl-peebsu tablet 1 tab PO DAILY 05/22/21 [History [...] MPV Neut % (Auto) Lymph % (Auto) [place] % (Auto) Eos % (Auto) Baso % (Auto) Nucleat RBC Rel Count Neut # (Auto) Lymph # (Auto) [place] # (Auto) Eos # (Auto) Baso # [...] % (Auto) 77.9 Lymph % (Auto) 14.7 [place] % (Auto) 6.3 Eos % (Auto) 0.8 Baso % (Auto) 0.3 Nucleat RBC Rel Count 0.1 Neut # (Auto) 8.2 H Lymph # (Auto) 1.5 [place] # (Auto) 0.7 Eos # (Auto) 0.1 [...] Explained postacute care options including inpatient rehab, assisted, home with home health care or outpatient [...] chart, including current orders, allied health and architectural sales consultant notes, labs/imaging and performed singh elements of exam and I formulated the plan of care and facilitated the medical decision making. I completed a substantive portion of this encounter, the medical decision makingportion of this note in its entirety, including Allied health note review, nursing note review, architectural sales consultant note review, discussion with nursing and case management, and more than 50% of my time was spent on counseling and coordination of care, time spent 65 minutes Documented By: Vinnie Yin MD 09/02/23 0813 Signed By: <Electronically signed by Vinnie Yin MD> 09/02/23 1422 [facility] Work Phone: 1(325) 343-714007-23-2024 Progress note Author Jeevan Sanchez [facility] September 02, 2023 7:55am Note Date/Time September 02, 2023 7:55 am [facility] [address] [place] [address] Orthopedic Progress Note Signed Patient: Nadia Almeida MR#: [id number] : 1945 Acct:[id number] Age/Sex: 77 / F Adm Date: 4 Loc: 4N Room: 1P0485-3 Type: REG [facility] [place]: Jeevan Sanchez II, MD Copies [...] MPV Neut % (Auto) Lymph % (Auto) [place] % (Auto) Eos % (Auto) Baso % (Auto) Nucleat RBC Rel Count Neut # (Auto) Lymph # (Auto) [place] # (Auto) Eos # (Auto) Baso # [...] % (Auto) 77.9 Lymph % (Auto) 14.7 [place] % (Auto) 6.3 Eos % (Auto) 0.8 Baso % (Auto) 0.3 Nucleat RBC Rel Count 0.1 Neut # (Auto) 8.2 H Lymph # (Auto) 1.5 [place] # (Auto) 0.7 Eos # (Auto) 0.1 Baso # (Auto) 0.0 PHA Creatinine Clear Sodium Potassium Chloride Carbon Dioxide Anion Gap BUN Creatinine Est GFR (CKD-EPI) Glucose Calcium Blood Type Recheck [facility] IN[facility] [place] [facility] TJC Ambulation: 1 Yes, [...] signed by Jeevan Sanchez MD> 09/02/[address] [facility] Work Phone: 1(985) 271-611607-23-2024 Consult note Author Gm Manning [facility] September 02, 2023 2:33am Note Date/Time September 01, 2023 4:12 pm [facility] [address] [place] [address] Hospitalist Consult Note Signed Patient: Nadia Almeida MR#: [id number] : 1945 Acct:[id number] Age/Sex: 77 / F Adm Date: 4 Loc: 4N Room: [address] [place] [address] Type: REG [facility] Attending Dr: Jeevan Sanchez II, MD Copies to: Shaw Francois II, DAWN Cabello MD Robert M Carlisle, MD~ HPI DATE [...] noted in the HPI above [facility] Medical History (Updated 09/01/23 @ 16:11 by [...] mg PO QAM 05/22/21 [History Confirmed 09/01/23] ogwwnqchcmem-rhlhtrxs-twiwjq tablet 1 tab PO DAILY 05/22/21 [History [...] Lactated Ringers IV 08/31/24 15:29 75 mls/hr .[id number] KENNETH Administration Lidocaine HCl 0.1 ml 09/01/23 10:30 Lidocaine 1% 50 Ml Vial INTRADERMA PREOP PRN Venipuncture x 1 Dose Mineral Oil 1 each 09/04/23 15:17 Mineral Oil ([place]) 1 Each Enema [place] ONCE PRN Constipation Morphine Sulfate 15 mg [...] mg 09/02/23 09:00 Pantoprazole 40 Mg Tablet.Dr PO 10/01/23 09:01 DAILY KENNETH Polyethylene Glycol [...] MD Documented By: Carlota Paige APRN 09/01/23 1602 Signed By: <Electronically signed by DAWN Paige> 09/01/23 3448 <Electronically signed by Gm Manning MD> 09/02/[address] [facility] Work Phone: 1(752) 861-757105-01-2023 NoteHNO ID: [id number] Author: Garrett Beltrán MD Service: ? Author Type: Physician Type: Progress Notes Filed: 06/16/2022 4:20 PM Note Text: NAME: Nadia Almeida CLINIC NO.: [id number] DATE OF SERVICE: June 10, 2022 (Leigh Ann) Some elements in this clinic note that are critical to medical decision making have been carefully reviewed and included from a prior clinic note dated: June 04, 2021 Referring Provider: Shaw Francois II CC: Right breast cancer ER/[place] positive, HER-2/crescencio negative diagnosed May 2011. 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 HER-2/crescencio was negative. [place] lymph nodes were negative. Mastectomy done 05/14/2011 also showed a 0.5 cm grade 2 ER/WV positive HER-2/crescencio negative invasive ductal carcinoma with [...] Take 1 tablet by mouth once daily. Iaipewfdnwxrn-Oydtplcl-Wglmmo (CENTRUM SILVER) tab Take 1 tablet by [...] Value 06/04/2021 173 MPV (fL) Date Value more content not included)...[facility]05-01-2023 Instructions* Patient Instructions* Garrett Beltrán MD - 06/10/2022 11:07 AM EDT RTC PRN Order mammogram Left side in 1 year but CC: to Dr. Francois and Follow up with Dr. Francois for labs and exam in 1 year. [facility] History of Present illness Narrative* Garrett Beltrán MD - 06/10/2022 10:21 AM EDT Images from the original note were not included. NAME: Juan Pablo Nadia [facility] NO.: [id number] DATE OF SERVICE: June 10, 2022 (Leig hAnn) Some elements in this clinic note that are critical to medical decision making have been carefully reviewed and included from a prior clinic note dated: June 04, 2021 Referring Provider: Shaw Francois II CC: Right breast cancer ER/[place] positive, HER-2/crescencio negative diagnosed May 2011. 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 HER-2/crescencio was negative. [place] lymph nodes were negative. Mastectomy done 05/14/2011 also showed a 0.5 cm grade 2 ER/[place] positive HER-2/crescencio negative invasive ductal carcinoma with [...] Take 1 tablet by mouth once daily. Kgrbkzrzkxbmb-Bvzuqinp-Vltokt (CENTRUM SILVER) tab Take 1 tablet by [...] breast (HCC) 04/2011 T1N0Mx - stage 1, ER+WV+HER2- HTN (hypertension) PAST SURGICAL HISTORY Procedure Laterality [...] which included preparing to see the patient, lwjd-xu-izdq patient care, completing clinical documentation, performing a medically appropriate examination and ordering medications, tests, or procedures. Garrett Beltrán MD, [place], [place] CC: Shaw Francois II, MD [address] [facility] [id number] documented [facility] History of Present illness Narrative* Garrett Beltrán MD - 06/04/2021 10:47 AM EDT Images from the original note were not included. NAME: Nadia Almeida [facility] NO.: [id number] DATE OF SERVICE: June 04, 2021 Some elements in this clinic note that are critical to medical decision making have been carefully reviewed and included from a prior clinic note dated: December 04, 2020 Referring Provider: Shaw Francois II CC: Right breast cancer ER/[place] positive, HER-2/crescencio negative diagnosed May 2011. 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 HER-2/crescencio was negative. [place] lymph nodes were negative. Mastectomy done 05/14/2011 also showed a 0.5 cm grade 2 ER/[place] positive HER-2/crescencio negative invasive ductal carcinoma with [...] Take 1 tablet by mouth once daily. Nacbpguagaggd-Rspbzynk-Tkmyfl (CENTRUM SILVER) ORAL Tab Take 1 tablet [...] breast (HCC) 04/2011 T1N0Mx - stage 1, ER+WV+HER2- HTN (hypertension) PAST SURGICAL HISTORY Procedure Laterality [...] which included preparing to see the patient, wrvd-ac-ecdg patient care, completing clinical documentation, performing a medically appropriate examination and ordering medications, tests, or procedures. Garrett Beltrán MD, CPE [place], [place] CC: Shaw Francois II, MD [address] [facility] [id number] documented in [facility] encounter[facility]04-[facility] Nurse Note* Etehl Cervantes MA - 06/04/2021 10:20 AM EDT Patient would like a breast exam states it has been awhile since one was performed. Ethel Cervantes MA documented in this encounterToledo HospitalEvaluation noteNo assessment information availableTrihealth [facility] Work Phone: evaluation note* Diagnosis Breast screening- Primary Breast screening, unspecified Malignant 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, estrogen receptor positive, unspecified site of breast (HCC) Abnormal breath sounds Abnormal chest sounds Elevated hemidiaphragm Disorders of diaphragm documented in this encounter [facility] note* Diagnosis History of breast cancer- Primary Personal history of malignant neoplasm of breast Breast screening Breast screening, unspecified Malignant 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, estrogen receptor positive, unspecified site of breast (HCC) [facility] Diagnosis Onset Date Resolution Status Osteoarthritis of right knee acute [facility] Work Phone: Evaluation note* Diagnosis Onset Date Resolution Status Osteoarthritis of right knee acute Osteoarthritis of right knee acute [facility] Work Phone: Evaluation note* Diagnosis Onset Date Resolution Status Osteoarthritis of right knee acute Osteoarthritis of right knee acute Osteoarthritis of right knee acute [facility] Work Phone: Evaluation note* Diagnosis Onset Date Resolution Status Osteoarthritis of right knee acute Osteoarthritis of right knee acute Osteoarthritis of right knee acute Hypertension acute Impaired mobility and activities of daily living acute Osteoarthritis of right knee acute Postoperative pain acute Status post total right knee replacement acute [facility] Work Phone: Evaluation note* Diagnosis Onset [...] Status post total right knee replacement acute [facility] Work Phone: Evaluation note* Diagnosis Onset Date Resolution Status Osteoarthritis of right knee acute Osteoarthritis of right knee acute Hypertension acute Impaired mobility and activities of daily living acute Osteoarthritis of right knee acute Postoperative pain acute Status post total right knee replacement acute Aftercare following right knee joint replacement surge ry acute Status post total right knee replacement acute [facility] Work Phone: Evaluation note* Diagnosis Onset [...] Status post total right knee replacement acute [facility] Work Phone: Evaluation note* Diagnosis Onset Date [...] post total right knee replacement acute [facility] Work Phone: Evaluation note* Diagnosis Acute [...] right knee joint replacement surge ry acute [facility] Work Phone: Evaluation note* Diagnosis Closed fracture of neck of left femur, initial encounter (HCC) documented in this encounter [facility] HealthEvaluation note* Diagnosis Acute pain of right knee- Primary Aftercare following right knee joint replacement surgery Knee stiffness, right documented in this encounter [facility] HealthcareEvaluation note* Diagnosis Closed fracture of left hip with routine healing, subsequent encounter- Primary Depressive disorder (CMS/HCC) Depressive disorder, not elsewhere classified documented in this encounter [facility] HealthcareEvaluation note* Diagnosis Closed fracture of left hip with routine healing, subsequent encounter documented in this encounter [facility] HealthcareReason for referral (narrative)* Diagnostic Procedure Only (Routine) - Pending Review Specialty Diagnoses / Procedures Referred By Mj mireles Referred To Contact [facility] Diagnoses Breast screening Malignant 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, estrogen receptor positive, unspecified site of breast (HCC) Procedures TORRES SCREENING SCREENING MAMMOGRAPHY BI 2-VIEW BREAST INC Garrett Joyce MD [address] [place] [address] [facility] [address] [place] [address] Referral ID Status Reason Start Date Expiration Date Visits Requested Visits Authorized [id number] Pending Review Auto-Generat ed Referral 05/31/2022 07/04/2022 1 1 [facility] for referral (narrative)* Diagnostic Procedure Only (Routine) - Pending Review Specialty Diagnoses / Procedures Referred By Mj mireles Referred To Contact [facility] Diagnoses Breast screening Procedures TORRES SCREENING SCREENING MAMMOGRAPHY BI 2-VIEW BREAST INC Garrett Joyce MD [address] [place] [address] [facility] [address] [place] [address] Referral ID Status Reason Start Date Expiration Date Visits Requested Visits Authorized [id number] Pending Review Auto-Generat ed Referral 06/11/2023 07/10/2023 1 1 [facility] Summary Purpose Family History No Family [...] Documents on File Type Date Recorded 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 Advance Directive(s) 06/03/2016 2:33 PM Advance Directive Response Recorded Date/ Time Advance Directives No May 16 1:08pm Chief Complaint and Reason for Visit Chief [...] Aftercare following right knee joint replacement surgery Chief Complaint Admit Date M25.562 - Pain in left knee April 12 11:34am 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 NX April 12, 2024 11 :57am Additional Source Comments INFORMATION SOURCE (unrecogn ized section and content) DATE CREATED AUTHOR 07/31/2017 [facility] DATE CREATED AUTHOR AUTHOR'S ORGANIZ ATION 09/29/2019 [facility] DATE CREATED AUTHOR AUTHOR'S ORGANIZ ATION 11/15/2019 [facility] DATE CREATED AUTHOR AUTHOR'S ORGANIZ ATION 04/27/2021 [facility] dical Specialist DATE CREATED AUTHOR AUTHOR'S ORGANIZ ATION 06/04/2022 [facility] DATE CREATED AUTHOR AUTHOR'S ORGANIZ ATION 06/17/2022 [facility] DATE CREATED AUTHOR AUTHOR'S ORGANIZ ATION 01/21/2024 Lorena rojas DATE CREATED AUTHOR AUTHOR'S ORGANIZ ATION 04/13/2024 [facility] DATE CREATED AUTHOR AUTHOR'S ORGANIZ ATION 05/05/2024 [facility] dical Specialists EPIC Care Teams (unrecognized sec tion and content) Team Status: Active Member Role Status Dates Shaw Francois II MD Primary Care Provider Active Team Status: Inactive Member Role Status Dates Shaw Francois II MD Primary Care Provider Active Start: April 12, 2024 End: April 12, 2024 Jeevan Sanchez II, MD Attending Provider Active Start: April 12, 2024 End: April 12, 2024 Team Status: Active Member Role Status Dates Shaw Francois II MD Primary Care Provider Active Start: September 01, 2023 Jeevan Sanchez II, MD Attending [facility], Other Provider Active Start: September 01, 2023 Team Status: Inactive Member Role Status Dates Shaw Francois II MD Primary Care Provider Active Start: September 01, 2023 End: September 02, 2023 Jeevan Sanchez II, MD Attending Provider Active Start: September 01, 2023 End: September 02, 2023 Nancy Chaparro RN Other Provider Active Star t: September 01, 2023 End: September 02, 2023 Samantha Anderson RN Other Provider Active Start : September 01, [...] Fabricio Gagnon MD Other Provider Active Start: Marshal lane 2023 End: September 02, 2023 Makenna Terrazas [...] Mian Fuller MD Other Provider Active Start: Edie ly 2023 End: September 02, 2023 Ashok [...] Price MD Other Provider Active Start: Marshal ariana 2023 End: September 02, 2023 Shaw [...] Ada Farfan RN Other Provider Active Start: 2023 Huyen Velasco [...] Provider Active Start: Aug Yasmin Lyons , PRODUCTION TEAM LEADER-C Other Provider Active St art: September 02, [...] Active Naya Weber DO Attending Provider Active Manager Contract Relationship Specialty Start Date End Date Shaw Francois II [address] [place] [address] PCP - General Internal Medicine 01/15/16 Manager Contract Relationship Specialty Start Date End Date Shaw Francois II [address] [place] [address] PCP - General Internal Medicine 01/15/16 Team [...] Attending Provider Active Start: October 15, 2023 Manager Contract Relationship Specialty Start Date End Date Shaw Francois MD [address] [place] [address] PCP - General Internal Medicine 07/23/22 Shaw Francois MD [address] [place] [address] PCP - Helena PETERS 02/10/23 Manager Contract Relationship Specialty Start Date End Date Shaw Francois MD [address] [place] [address] PCP - General Internal Medicine 07/23/22 Shaw Francois MD [address] [place] [address] PCP - Helena PETERS 02/10/23 Manager Contract Relationship Specialty Start Date End Date Shaw Francois MD [address] [place] [address] PCP - General Internal Medicine 07/23/22 Shaw Francois MD [address] [place] [address] PCP - Helena PETERS 02/10/23 Manager Contract Relationship Specialty Start Date End Date Shaw Francois MD [address] [place] [address] PCP - General Internal Medicine 07/23/22 Shaw Francois MD [address] [place] [address] PCP - Helena PETERS 02/10/23 Manager Contract Relationship Specialty Start Date End Date Shaw Francois MD [address] [place] [address] PCP - General Internal Medicine 07/23/22 Shaw Francois MD [address] [place] [address] PCP - Helena PETERS 02/10/23 Manager Contract Relationship Specialty Start Date End Date Shaw Francois MD [address] [facility] [address] [place] [address] PCP - General Internal Medicine 07/23/22 Shaw Francois MD [address] [facility] [address] [place] [address] PCP - Helena PETERS 02/10/23 Manager Contract Relationship Specialty Start Date End Date Shaw Oconnor MD [facility] [place] [address] PCP - General Family Medicine 01/16/24 Manager Contract Relationship Specialty Start Date End Date Shaw Oconnor MD [facility] [address] [address] PCP - General Family Medicine 01/16/24 Manager Contract Relationship Specialty Start Date End Date Shaw Francois MD [address] [place] [address] PCP - General Internal Medicine 07/23/22 Shaw Francois MD [address] [place] [address] PCP - Helena MA 02/10/23 Manager Contract Relationship Specialty Start Date End Date Shaw Francois MD [address] [place] [address] PCP - General Internal Medicine 07/23/22 Shaw Francois MD [address] [place] [address] PCP - Helena PETERS 02/10/23 Manager Contract Relationship Specialty Start Date End Date Shaw Francois MD [address] [place] [address] PCP - General Internal Medicine 07/23/22 Shaw Francois MD [address] [place] [address] PCP - Helena PETERS 02/10/23 Manager Contract Relationship Specialty Start Date End Date Shaw Francois MD [address] [place] [address] PCP - General Internal Medicine 07/23/22 Shaw Francois MD [address] [place] [address] PCP - Helena PETERS 02/10/23 Manager Contract Relationship Specialty Start Date End Date Shaw Francois MD [address] [place] [address] PCP - General Internal Medicine 07/23/22 Shaw Francois MD [address] [place] [address] PCP - Helena PETERS 02/10/23 Manager Contract Relationship Specialty Start Date End Date Shaw Francois MD [address] [place] [address] PCP - General Internal Medicine 07/23/22 Shaw Francois MD [address] [place] [address] PCP - Helena PETERS 02/10/23 Manager Contract Relationship Specialty Start Date End Date Shaw Francois MD [address] [place] [address] PCP - General Internal Medicine 07/23/22 Shaw Francois MD [address] [place] [address] PCP - Helena PETERS 02/10/23 Manager Contract Relationship Specialty Start Date End Date Shaw Francois MD [address] [place] [address] PCP - General Internal Medicine 07/23/22 Shaw Francois MD [address] [place] [address] PCP - Helena PETERS 02/10/23 Manager Contract Relationship Specialty Start Date End Date Shaw Francois MD [address] [place] [address] PCP - General Internal Medicine 07/23/22 Manager Contract Relationship Specialty Start Date End Date Shaw Francois MD [address] [place] [address] PCP - General Internal Medicine 07/23/22 Team Status: Active Member Role Status Dates Shaw Francois II MD Primary Care Provider Active Start: April 12, 2024 Jeevan Sanchez II, MD Attending Provider Active Start: April 12, 2024 Goals (unrecognized section and content) Goals may [...] or prosecute any alcohol or drug abuse patient.[facility] the event this information is protected by the Federal Confidentiality of Alcohol and Drug Abuse Patient Records regulations: The Federal rules restrict any use of the information to criminally investigate or prosecute any alcohol or drug abuse patient.[facility] Reason for Visit (unrecogniz ed section and content) Reason Comments Breast Cancer 6 month follow up Reason Comments Breast Cancer 1 year follow up Specialty Diagnoses / Procedures Referred By Contac t Referred To Contact Physical Therapy Diagnoses Pain in right knee Procedures [place] [facility] EVALUATION LOW COMPLEX 20 MINS Frannie Díaz [address] [place] [address] Jackie Persaud, PT [address] [facility] [address] [place] [address] Referral ID Status Reason Start Date Expiration Date Visits Requested Visits Authorized [id number] Authorized Consult and Treat 11/05/2023 02/02/2024 12 12 Referral ID Status Reason Start Date Expiration Date V isits Requested Visits Authorized [id number] Closed Consult and Treat 11/05/2023 02/02/2024 12 12 Specialty Diagnoses / Procedures Referred By Mj mireles Referred To Contact Physical Therapy Diagnoses Right Total Knee Arthroplasty Procedures [place] PHYS[facility] THERAP[facility] EVALUATION LOW COMPLEX 20 MINS Frannie Díaz [address] [place] [address] Jackie Persaud, PT [address] [facility] [address] [place] [address] Referral ID Status Reason Start Date Expiration Date V isits Requested Visits Authorized [id number] Authorized 09/24/2023 03/17/2024 12 12 Referral ID Status Reason Start Date Expiration Date Visits Re quested Visits Authorized [id number] Closed 09/24/2023 03/17/2024 12 12 Reason Comments Follow-up [facility] stay 12/25/23- 1 02/27/23 for left femur fracture discharged [facility] rehab discharged home 01/17/24 Med Refill [...] BE BASED ON THE PRIMARY CLINICAL RECORDS. [employer] [facility]. provides no warranty or guarantee of the accuracy or completeness of information in this document.
== END 2024-05-10 10:15 | disposition home or self-care (01) ==
LOC: EC 10:14
PROVIDERS: PCP Internal Medicine; Visit Provider Orthopaedic Surgery
DX: S72.002D Fracture of unspecified part of neck of left femur, subsequent encounter for closed fracture with routine healing (principal)
CPT/HCPCS: 73502

== ENCOUNTER 2024-07-20 10:29 | Outpatient (OUT) | payer OTHER, MEDICARE, SELFPAY ==
--- OUTSIDE RECORDS SUMMARY | 2024-07-16 11:00 | XMS_ITS | Encounter Summary ---
Author Organization [facility] Address [address] [place] [address] Care Team Providers Care Bottle Filler Name Role Phone Shaw Francois MD Primary Care Provider [phone] Reason for Visit * Reason Comments lab results Pt also fell on 07/14 did not go to the ER refused Encounter Details Date Type Department Care Team (Late st Contact Info) Description 07/16/2024 11:00 AM EDT Office Visit [facility] [address] [facility] [address] [place] [phone] Shaw Francois MD 112 [facility] 110 [place] [address] Benign essential hypertension (CMS/HCC) (Primary Dx); Postoperative hypothyroidism (CMS/HCC); Primary hypercholesterolemia (CMS/HCC); Osteopenia of multiple sites Social History Tobacco Use Types Packs/Day Years Used Date Smoking Tobacco: Never Smokeless Tobacco: Never Alcohol Use Standard Drinks/Week Comments Never 0 (1 standard drink = 0.6 oz pure alcohol) caffeine 1-2 cups per day, coffee:chocolate Humiliation, Afraid, Rape, and Kick questionnair e Answer Date Recorded Within the last year, have y ou been afraid of your partner or ex-partner? No 10/09/2022 Within the last year, have y ou been humiliated or emotionally abused in other ways by your partner or ex-partner? No Within the last year, have y ou been kicked, hit, slapped, or otherwise physically hurt by your partner or ex-partner? No 10/09/2022 Within the last year, have y ou been raped or forced to have any kind of sexual activity by your partner or ex-partner? No 10/09/2022 Social Connection and Isolation Panel [NHANES] A nswer Date Recorded In a typical week, how many times do you talk on the phone with family, friends, or neighbors? Once a week 10/09/2022 How often do you get together with friends or re latives? Once a week 10/09/2022 How often do you attend methodist or adventist serv ices? Never 10/09/2022 Do you belong to any clubs o r organizations such as methodist groups, unions, fraternal or athletic groups, or school groups? No 10/09/2022 How often do you attend meet ings of the clubs or organizations you belong to? Never 10/09/2022 Are you , , di vorced, , never , or living with a partner? 10/09/2022 AUDIT-C Answer Date Recorded Frequency of Alcohol Consumption Not on file 10/09/2022 Q2: How many drinks containi ng alcohol do you have on a typical day when you are drinking? 1 or 2 10/09/2022 Q3: How often do you have si x or more drinks on one occasion? Never 10/09/2022 Overall Financial Resource Strain (CARDIA) Answe r Date Recorded How hard is it for you to pa y for the very basics like food, housing, medical care, and heating? Not hard at all 10/09/2022 PHQ-2 Answer Date Recorded Patient Health Questionnaire-2 Score 0 06/11/2024 [facility] - Occupational Stress Questionnaire Answer Date Recorded Do you feel stress - tense, restless, nervous, or anxious, or unable to sleep at night because your mind is troubled all the time - these days? Only a little 10/09/2022 Exercise Vital Sign Answer Date Recorde d On average, how many days pe r week do you engage in moderate to strenuous exercise (like a brisk walk)? 0 days 10/09/2022 On average, how many minutes do you engage in exercise at this level? 0 min 10/09/2022 Hunger Vital Sign Answer Date Recorded Within the past 12 months, y ou worried that your food would run out before you got the money to buy more. Never true 10/10/19 23 Within the past 12 months, t he food you bought just didn't last and you didn't have money to get more. Never true 10/09/2022 PRAPARE - Transportation Answer Date Re corded In the past 12 months, has l ack of transportation kept you from medical appointments or from getting medications? No 09/12 In the past 12 months, has l ack of transportation kept you from meetings, work, or from getting things needed for daily living? No 10/09/2022 Housing Stability Vital Sign Answer Reynold e Recorded In the last 12 months, was t here a time when you were not able to pay the mortgage or rent on time? No 10/09/2022 In the last 12 months, how many places have you lived? 1 10/09/2022 In the last 12 months, was t here a time when you did not have a steady place to sleep or slept in a detention (including now)? No 10/09/2022 Comments Unknown Sex and Gender Information Value Date Recorded Sex Assigned at Not on file Legal Sex Female 7:19 PM EDT Gender Identity Not on file Sexual Orientation Not on file documented as of this encounter Last Filed Vital Signs Vital Sign Reading Time Taken Comments Blood Pressure 118/72 07/16/2024 10:48 AM EDT Pulse 66 07/16/2024 10:48 AM EDT Temperature - - Respiratory Rate - - Oxygen Saturation 98% 07/16/2024 10:48 AM EDT Inhaled Oxygen Concentration - - Weight 78 kg (172 lb) 07/16/2024 10:48 AM EDT Height 170.2 cm (5' 7 ) 07/16/2024 10:48 AM EDT Body Mass Index 26.94 07/16/2024 10:48 AM EDT documented in this encounter Progress Notes * Shaw Francois MD - 07/16/2024 11:00 AM EDT Images from the original note were not included. HPI lab results Additional comments: Pt also fell on 07/14 did not go to the ER refused Last edited by Halima Arias MA on 07/16/2024 7:22 AM. Subjective Patient ID: Nadia Almeida is a 78 y.o. female who presents for lab results (Pt also fell on 07/14 did not go to the ER refused). Pt is here to go over lab results Pt did fall at home hurting the right side of her face , her left knee and will be seeing her surgeon on Friday for her 3 week follow up , she did not go to the ER at all Current Outpatient Medications on File Prior to Visit Medication Sig Dispense Refill cholecalciferol (Vitamin D-3) 50 MCG (1999) tablet 1 (one) time each day at the same time. GNP PAIN RELIEF EX-STRENGTH 500 MG tablet Take 1,000 mg by mouth every 6 (six) hours if needed for moderate pain levothyroxine (Synthroid, Levoxyl) 125 MCG tablet TAKE 1 TABLET BY MOUTH IN THE MORNING BEFORE A MEAL 100 tablet 0 losartan (Cozaar) 25 MG tablet TAKE 1 TABLET BY MOUTH IN THE MORNING 100 tablet 3 Multiple Vitamins-Minerals (CENTRUM SILVER ULTRA WOMENS PO) Centrum Silver sertraline (Zoloft) 100 MG tablet Take 0.5 tablets (50 mg) by mouth Daily (Patient taking differently: Take 100 mg by mouth Daily) 45 tablet 3 [DISCONTINUED] cefTRIAXone (Rocephin) 10 g [DISCONTINUED] Vancomycin HCl in NaCl 1.5-0.9 GM/250ML-% solution Infuse 1.5 g into a venous catheter 1 (one) time each day at the same time X 4 weeks Delivered by [facility] Care No current facility-administered medications on file prior [...] Comment: caffeine 1-2 cups per day, coffee:chocolate Drug use: Never Family History Problem Relation Name Age of Onset Mental illness Father Cancer Other siblings Melanoma Neg Hx Past Medical History: Diagnosis Date Breast cancer ([facility]) 2011 right; Dr. Beauchamp Depression ([facility]) Diarrhea Gallbladder disease Gastric ulcer Gastric ulcer History of being hospitalized 02/21/2024 Cellulitis and Abscess of Left Hip History of medical problems 2014 abnormal lesion, right forehead Inflamed seborrheic keratosis Inflamed seborrheic keratosis Multinodular goiter (nontoxic) (CMS/HCC) Non-toxic multinodular goiter (CMS/HCC) Osteopenia Osteopenia Rotator cuff tear 2003 right Past Surgical History: Procedure Laterality Date BREAST BIOPSY Right 2012 EGD 08/23/2016 HM DEXA SCAN 2014 HYSTERECTOMY 1974 IR ABLATION BONE 06/08/2018 Left C2-C5 MASTECTOMY Right 2012 NERVE BLOCK 01/30/2018 Left C3-C6 OTHER SURGICAL HISTORY 2013 excision of soft tissue mass seond intersace left foot RI EGD TRANSORAL BIOPSY SINGLE/MULTIPLE 05/23/2021 RI MOHS MICROGRAPHIC H/N/H/F/G 1ST STAGE 5 BLOCKS 05/18/2018 Left C2-5 THYROIDECTOMY 04/15/2020 TOTAL KNEE ARTHROPLASTY Right 09/01/2023 TOTAL THYROIDECTOMY 04/25/2020 Visit Vitals BP 118/72 Pulse 66 Ht 5' 7 Wt 172 lb SpO2 98% BMI 26.94 kg/m?? Smoking Status Never BSA 1.92 m?? Review of Systems Objective Physical Exam Constitutional: [...] and oriented to person, place, and time. Motor: Weakness present. Gait: Gait abnormal. Comments: Left leg weakness Psychiatric: Mood and Affect: Mood normal. Behavior: Behavior normal. Office Visit on 06/11/2024 Component Date Value Ref Range Status WHITE BLOOD CELL COUNT 06/11/2024 5.9 3.8 - 10.8 Thousand/uL Final RED BLOOD CELL COUNT 06/11/2024 4.57 3.80 - 5.10 Million/uL Final HEMOGLOBIN 06/11/2024 13.3 11.7 - 15.5 g/dL Final HEMATOCRIT 06/11/2024 40.7 35.0 - 45.0 % Final MCV 06/11/2024 89.1 80.0 - 100.0 fL Final MCH 06/11/2024 29.1 27.0 - 33.0 pg Final MCHC 06/11/2024 32.7 32.0 - 36.0 g/dL Final Comment: For adults, a slight decrease in the calculated MCHC value (in the range of 30 to 32 g/dL) is most likely not clinically significant; however, it should be interpreted with caution in correlation with other red cell parameters and the patient's clinical condition. RDW 06/11/2024 13.1 11.0 - 15.0 % Final PLATELET COUNT 06/11/2024 222 140 - 400 Thousand/uL Final MPV 06/11/2024 9.7 7.5 - 12.5 fL Final ABSOLUTE NEUTROPHILS 06/11/2024 3,280 1,500 - 7,800 cells/uL Final ABSOLUTE LYMPHOCYTES 06/11/2024 1,882 850 - 3,900 cells/uL Final ABSOLUTE MONOCYTES 06/11/2024 389 200 - 950 cells/uL Final ABSOLUTE EOSINOPHILS 06/11/2024 301 15 - 500 cells/uL Final ABSOLUTE BASOPHILS 06/11/2024 47 0 - 200 cells/uL Final NEUTROPHILS 06/11/2024 55.6 % Final LYMPHOCYTES 06/11/2024 31.9 % Final MONOCYTES 06/11/2024 6.6 % Final EOSINOPHILS 06/11/2024 5.1 % Final BASOPHILS 06/11/2024 0.8 % Final CHOLESTEROL, TOTAL 06/11/2024 193 <200 mg/dL Final HDL CHOLESTEROL 06/11/2024 47 (L) > OR = 50 mg/dL Final TRIGLYCERIDES 06/11/2024 130 <150 mg/dL Final LDL-CHOLESTEROL 06/11/2024 121 (H) mg/dL (calc) Final Comment: Reference range: <100 Desirable range <100 mg/dL for primary prevention; <70 mg/dL for patients with CHD or diabetic patients with > or = 2 CHD risk factors. LDL-C is now calculated using the Fredis calculation, which is a validated novel method providing better accuracy than the Friedewald equation in the estimation of LDL-C. Daryl LEGER et al. TONG. 2013;310(19): 3094-6819 (http://education.Jag.[employer]/faq/QJE157) CHOL/HDLC RATIO 06/11/2024 4.1 <5.0 (calc) Final NON HDL CHOLESTEROL 06/11/2024 146 (H) <130 mg/dL (calc) Final Comment: For patients with diabetes plus 1 major ASCVD risk factor, treating to a non-HDL-C goal of <100 mg/dL (LDL-C of <70 mg/dL) is considered a therapeutic option. Glucose 06/11/2024 93 65 - 99 mg/dL Final Comment: Fasting reference interval BUN 06/11/2024 18 7 - 25 mg/dL Final Creatinine 06/11/2024 0.68 0.60 - 0.95 mg/dL Final EGFR 06/11/2024 88 > OR = 60 mL/min/1.73m2 Final BUN/CREATININE RATIO 06/11/2024 SEE NOTE: 6 - 22 (calc) Final Comment: Not Reported: BUN and Creatinine are within reference range. Sodium 06/11/2024 141 135 - 146 mmol/L Final Potassium, Bld 06/11/2024 4.1 3.5 - 5.3 mmol/L Final Chloride 06/11/2024 108 98 - 110 mmol/L Final Carbon Dioxide 06/11/2024 24 20 - 32 mmol/L Final Calcium 06/11/2024 9.1 8.6 - 10.4 mg/dL Final PROTEIN, TOTAL 06/11/2024 6.4 6.1 - 8.1 g/dL Final ALBUMIN 06/11/2024 4.2 3.6 - 5.1 g/dL Final GLOBULIN 06/11/2024 2.2 1.9 - 3.7 g/dL (calc) Final ALBUMIN/GLOBULIN RATIO 06/11/2024 1.9 1.0 - 2.5 (calc) Final BILIRUBIN, TOTAL 06/11/2024 0.8 0.2 - 1.2 mg/dL Final ALKALINE PHOSPHATASE 06/11/2024 58 37 - 153 U/L Final AST 06/11/2024 14 10 - 35 U/L Final ALT 06/11/2024 10 6 - 29 U/L Final TSH 06/11/2024 0.83 0.40 - 4.50 mIU/L Final T4, FREE 06/11/2024 1.8 0.8 - 1.8 ng/dL Final VITAMIN D,25-OH,TOTAL,IA 06/11/2024 48 30 - 100 ng/mL Final Comment: Vitamin D Status 25-OH Vitamin D: Deficiency: <20 ng/mL Insufficiency: 20 - 29 ng/mL Optimal: > or = 30 ng/mL For 25-OH Vitamin D testing on patients on D2-supplementation and patients for whom quantitation of D2 and D3 fractions is required, the QuestAssureD(TM) 25-OH VIT D, (D2,D3), LC/MS/MS is recommended: order code 98768 (patients >2yrs). See Note 1 Note 1 For additional information, please refer to http://education.[employer]/faq/JLG813 (This link is being provided for informational/ educational purposes only.) Assessment/Plan Diagnoses and all orders for this visit: Benign essential hypertension (CMS/HCC) - This is a chronic medical condition that is stable since last assessment. No changes in treatmentare suggested at this time. Postoperative hypothyroidism (CMS/HCC) - Recent lab work for this condition was reviewed and discussed with the patient. Labs are at or near goal, no changes to medication are planned. Primary hypercholesterolemia (CMS/HCC) - No med change. Osteopenia of multiple sites Follow up in about 6 months (around 01/15/2025) for Routine F/U. documented in this encounter Plan of Treatment Upcoming Encounters Date Type Department Care Team (Late st Contact Info) Description 08/10/2024 10:15 AM EDT Procedure Visit [facility] [address] [place] [phone] Roge Rodríguez DPM [address] [place], [place] [phone] documented as of this encounter Visit Diagnoses Diagnosis Benign essential hypertension (CMS/HCC)- Primary Essential hypertension, benign Postoperative hypothyroidism (CMS/HCC) Postsurgical hypothyroidism Primary hypercholesterolemia (CMS/HCC) Pure hypercholesterolemia Osteopenia of multiple sites documented in this encounter Care Teams Bottle Filler Relationship Specialty Start Date End Date Shaw Francois MD 112 [facility] 110 [place] [address] PCP - General Internal Medicine 07/23/22 documented as of this encounter
--- OUTSIDE RECORDS SUMMARY | 2024-07-20 10:32 | XMS_ITS | Encounter Summary ---
Author Organization [facility] Address [address] [place] [address] Care Team Providers Care Sales Service Representative Name Role Phone Shaw Francois MD Primary Care Provider [phone] Encounter Details Date Type Department Care Team (Late st Contact Info) Description 02/26/2024 Abstract [facility] [address] [facility] 110 [place] [phone] Shaw Francois MD [address] [facility] 110 [place], [place] [id number] Social History Tobacco Use Types Packs/Day Years [...] week 10/09/2022 How often do you attend amish or uatsdin serv ices? Never 10/09/2022 Do you belong to any clubs o r organizations such as amish groups, unions, fraternal or athletic groups, or [...] Date Recorded Patient Health Questionnaire-2 Score 0 12/16/2022 [facility] Occupat ional Health - Occupational Stress [...] place to sleep or slept in a chcf (including now)? No 10/09/2022 Comments Unknown Sex and Gender Information Value Date Recorded Sex Assigned at Not on file Legal Sex Female 7:19 PM EDT Gender Identity Not on file Sexual Orientation Not on file documented as of this encounter Plan of Treatment Upcoming Encounters Date Type Department Care Team (Late st Contact Info) Description 08/10/2024 10:15 AM EDT Procedure Visit [facility] [address] [place] [address] Roge Rodríguez, DPM [address] [place], [place] [id number] documented as of this encounter Visit Diagnoses Not on filedocumented in this encounter Care Teams Sales Service Representative Relationship Specialty Start Date End Date Shaw Francois MD [address] [facility] [address] [place] [address] PCP - General Internal Medicine 07/23/22 documented as of this encounter
--- OUTSIDE RECORDS SUMMARY | 2024-07-20 10:32 | XMS_ITS | Encounter Summary ---
Author Organization [facility] Address [address] [place] [address] Care Team Providers Care Wrong Address Clerk Name Role Phone Shaw Francois MD Primary Care Provider [phone] Encounter Details Date Type Department Care Team (Late st Contact Info) Description 04/26/2024 Abstract [facility] [address] [facility] [address] [place] [phone] Shaw Francois MD [address] [facility] [address] [place], [place] [id number] Social History Tobacco Use Types Packs/Day Years [...] week 10/09/2022 How often do you attend mosque or confucianist serv ices? Never 10/09/2022 Do you belong to any clubs o r organizations such as mosque groups, unions, fraternal or athletic groups, or [...] Recorded Patient Health Questionnaire-2 Score 0 12/16/2022 [facility] Occupat ional Health - Occupational [...] place to sleep or slept in a [place] [facility] [place] (including now)? No 10/09/2022 Comments Unknown Sex [...] AM EDT Procedure Visit [facility] [address] [place] [address] Roge Rodríguez, DPM [address] [place], [place] [phone] documented as of this encounter Visit Diagnoses Not on filedocumented in this encounter Care Teams Wrong Address Clerk Relationship Specialty Start Date End Date Shaw Francois MD [address] [facility] [address] [place] [address] PCP - General Internal Medicine 07/23/22 documented as of this encounter
--- OUTSIDE RECORDS SUMMARY | 2024-07-20 10:32 | XMS_ITS | Encounter Summary ---
Author Organization [facility] Address [address] [place] [address] Care Team Providers Care Saturator Operator Name Role Phone Shaw Francois MD Primary Care Provider [phone] Shaw Francois MD Unavailable [phone] Encounter Details Date Type Department Care Team (Late st Contact Info) Description 04/22/2023 Abstract [facility] [address] [facility] [address] [place] [address] Megan Dutta MD [address] [facility] [address] [place] [address] Social History Tobacco Use Types Packs/Day Years [...] week 10/09/2022 How often do you attend sikh or protestant serv ices? Never 10/09/2022 Do you belong to any clubs o r organizations such as sikh groups, unions, fraternal or athletic groups, or [...] Recorded Patient Health Questionnaire-2 Score 0 12/16/2022 [facility] of Occupat ional Health - Occupational [...] the money to buy more. Never true 08/30/20 23 Within the past 12 months, t [...] place to sleep or slept in a retirement (including now)? No 10/09/2022 Comments Unknown Sex [...] AM EDT Procedure Visit [facility] [address] [place] [phone] Roge Rodríguez, DPM [address] [place] [address] documented as of this encounter Visit Diagnoses Not on filedocumented in this encounter Care Teams Saturator Operator Relationship Specialty Start Date End Date Shaw Francois MD [address] [facility] 110 [place] [address] PCP - General Internal Medicine 07/23/22 Shaw Francois MD [address] [facility] [address] [place] [address] PCP - Helena PETERS 02/10/23 02/10/24 documented as of this encounter
--- OUTSIDE RECORDS SUMMARY | 2024-07-20 10:32 | XMS_ITS | Encounter Summary ---
Author Organization [facility] Address [address] [place] [address] Care Team Providers Care Armored Machine Operator Name Role Phone Shaw Francois MD Primary Care Provider [phone] Encounter Details Date Type Department Care Team (Late st Contact Info) Description 04/06/2024 Abstract [facility] [address] [facility] 110 [place] [phone] Shaw Francois MD [address] [facility] 110 [place], [place] [phone] Social History Tobacco Use Types Packs/Day Years [...] week 10/09/2022 How often do you attend nondenominational or orthodox serv ices? Never 10/09/2022 Do you belong to any clubs o r organizations such as nondenominational groups, unions, fraternal or athletic groups, or [...] Recorded Patient Health Questionnaire-2 Score 0 12/16/2022 [facility] of Occupat ional Health - [...] place to sleep or slept in a fpc (including now)? No 10/09/2022 Comments Unknown Sex [...] AM EDT Procedure Visit [facility] [address] [place] [address] Roge Rodríguez, DPM [address] [place], [place] [phone] documented as of this encounter Visit Diagnoses Not on filedocumented in this encounter Care Teams Armored Machine Operator Relationship Specialty Start Date End Date Shaw Francois MD [address] [facility] [address] [place] [address] PCP - General Internal Medicine 07/23/22 documented as of this encounter
--- OUTSIDE RECORDS SUMMARY | 2024-07-20 10:32 | XMS_ITS | Encounter Summary ---
Author Organization [facility] Address [address] [place] [address] Care Team Providers Care Train Operator Name Role Phone Shaw Francois MD Primary Care Provider [phone] Encounter Details Date Type Department Care Team (Late st Contact Info) Description 03/01/2024 Abstract [facility] [address] [facility] 110 [place] [phone] Shaw Francois MD [address] [facility] 110 [place], [place] [phone] Social History Tobacco Use Types Packs/Day Years [...] week 10/09/2022 How often do you attend yarsanism or orthodoxy serv ices? Never 10/09/2022 Do you belong to any clubs o r organizations such as yarsanism groups, unions, fraternal or athletic groups, or [...] Recorded Patient Health Questionnaire-2 Score 0 12/16/2022 [facility] of Occupat ional Health - Occupational Stress [...] AM EDT Procedure Visit [facility] [address] [place] [address] Roge Rodríguez, DPM [address] [place], [place] [phone] documented as of this encounter Visit Diagnoses Not on filedocumented in this encounter Care Teams Train Operator Relationship Specialty Start Date End Date Shaw Francois MD [address] [facility] [address] [place] [address] PCP - General Internal Medicine 07/23/22 documented as of this encounter
--- OUTSIDE RECORDS SUMMARY | 2024-07-20 10:32 | XMS_ITS | Encounter Summary ---
Author Organization [facility] Address [address] [place] [address] Care Team Providers Care Streaming Media Specialist Name Role Phone Shaw Francois MD Primary Care Provider [phone] Shaw Francois MD Unavailable [phone] Encounter Details Date Type Department Care Team (Late st Contact Info) Description 07/08/2023 Abstract [facility] [address] [facility] 110 [place] [phone] Shaw Francois MD 112 [facility] 110 [place] [address] Social History Tobacco Use Types Packs/Day Years [...] week 10/09/2022 How often do you attend latter day or gnosticism serv ices? Never 10/09/2022 Do you belong to any clubs o r organizations such as latter day groups, unions, fraternal or athletic groups, or [...] Recorded Patient Health Questionnaire-2 Score 0 12/16/2022 [facility] - Occupational Stress Questionnaire Answer Date Recorded [...] place to sleep or slept in a alf (including now)? No 10/09/2022 Comments Unknown Sex [...] AM EDT Procedure [facility] [address] [facility] [place] [phone] Roge Rodríguez, DPM [address] [place] [address] documented as of this encounter Visit Diagnoses Not on filedocumented in this encounter Care Teams Streaming Media Specialist Relationship Specialty Start Date End Date Shaw Francois MD [address] [facility] [address] [place] [address] PCP - General Internal Medicine 07/23/22 Shaw Francois MD [address] [facility] [address] [place] [address] PCP - Helena PETERS 02/10/23 02/10/24 documented as of this encounter
--- OUTSIDE RECORDS SUMMARY | 2024-07-20 10:32 | XMS_ITS | Encounter Summary ---
Author Organization [facility] Address [address] [place] [address] Care Team Providers Care Plastic Welding Machine Operator Name Role Phone Shaw Francois MD Primary Care Provider [phone] Encounter Details Date Type Department Care Team (Late st Contact Info) Description 02/19/2024 Abstract [facility] [address] [address] [place] [address] Shaw Francois MD [address] [facility] 110 [place], [place] [address] Social History Tobacco Use Types Packs/Day Years [...] week 10/09/2022 How often do you attend voodoo or restorationism serv ices? Never 10/09/2022 Do you belong to any clubs o r organizations such as voodoo groups, unions, fraternal or athletic groups, or [...] Recorded Patient Health Questionnaire-2 Score 0 12/16/2022 [facility] - Occupational Stress [...] place to sleep or slept in a mcc (including now)? No 10/09/2022 Comments Unknown Sex [...] AM EDT Procedure Visit [facility] [address] [place] [address] Roge Rodríguez, DPM [address] [place], [place] [address] documented as of this encounter Visit Diagnoses Not on filedocumented in this encounter Care Teams Plastic Welding Machine Operator Relationship Specialty Start Date End Date Shaw Francois MD [address] [place] [address] PCP - General Internal Medicine 07/23/22 documented as of this encounter
--- OUTSIDE RECORDS SUMMARY | 2024-07-20 10:32 | XMS_ITS | Encounter Summary ---
Author Organization [facility] Address [address] [place] [address] Care Team Providers Care Staff Counsel Name Role Phone Shaw Francois MD Primary Care Provider [phone] Encounter Details Date Type Department Care Team (Late st Contact Info) Description 02/18/2024 Abstract [facility] [address] [place] [address] Shaw Francois MD [address] [facility] 110 [place], [place] [address] Social History Tobacco Use Types Packs/Day Years [...] How often do you attend mosque or rastafari serv ices? Never 10/09/2022 Do you belong [...] Recorded Patient Health Questionnaire-2 Score 0 12/16/2022 [facility] Occupat ional Health - Occupational Stress [...] place to sleep or slept in a residential (including now)? No 10/09/2022 Comments Unknown Sex [...] AM EDT Procedure Visit [facility] [address] [place] [address] Roge Rodríguez, DPM [address] [place], [place] [address] documented as of this encounter Visit Diagnoses Not on filedocumented in this encounter Care Teams Staff Counsel Relationship Specialty Start Date End Date Shaw Francois MD [address] [place] [address] PCP - General Internal Medicine 07/23/22 documented as of this encounter
--- OUTSIDE RECORDS SUMMARY | 2024-07-20 10:32 | XMS_ITS | Encounter Summary ---
Author Organization [facility] Address [address] [place] [address] Care Team Providers Care Principal Scientist Name Role Phone Dominic Francois MD Unavailable [phone] Dominic Francois MD Primary Care Provider [phone] Dominic Francois MD Unavailable [phone] Encounter Details Date Type Department Care Team (Late st Contact Info) Description 12/23/2022 Clinisync Result Encounter [facility] External Department Unsolicited Dominic Francois MD [address] [place] [address] Social History Tobacco Use Types [...] week 10/09/2022 How often do you attend denominational or cheondoism serv ices? Never 10/09/2022 Do you belong to any clubs o r organizations such as denominational groups, unions, fraternal or athletic groups, or [...] Recorded Patient Health Questionnaire-2 Score 0 12/16/2022 [facility] - Occupational Stress Questionnaire Answer Date Recorded [...] place to sleep or slept in a fci (including now)? No 10/09/2022 Comments Unknown Sex [...] AM EDT Procedure Visit [facility] [address] [place] [address] Roge Rodríguez, DPM [address] [place], [place] [address] documented as of this encounter Procedures Procedure Name Priority Date/Time Associated Diagnosis Comments XR DEXA AXIAL SKELETON 12/23/2022 12:21 PM EST documented in this encounter Results * XR DEXA AXIAL SKELETON (12/23/2022 12:21 PM EST) Anatomical Region Laterality Modality Other 12/23/2022 12:2 1 PM EST Narrative 12/23/2022 12:21 PM EST The [address] [address] XRay Report Signed Patient: Nadia Chin MR#: [id number] : 1945 Acct:[id number] Age/Sex: 77 / F ADM Date: 12/23/22 Loc: RAD Attending Dr: DOMINIC FRANCOIS Ordering Physician: DOMINIC FRANCOIS Date of Service: 12/23/22 Procedure(s): XR DEXA axial skeleton Accession Number(s): [id number] cc: DOMINIC FRANCOIS The [place] [address] Patient Name: NADIA CHIN MRN: [id number] date: 1945 Sex: F Assigned Patient Location: [facility] Current Patient Location: RAD Accession/Order Number: [id number] Exam Date: 12/23/2022 11:20 Report Date: 12/23/2022 12:21 At the request of: DOMINIC FRANCOIS Procedure: XR DEXA axial skeleton EXAMINATION: XR DEXA axial skeleton HISTORY: Estrogen Deficiency E28.39 COMPARISON: DEXA bone densitometry 03/30/2018 TECHNIQUE: Dual-energy X-ray absorptiometry (DXA) was performed. FINDINGS: SPINE ANALYSIS: Average bone mineral density is 0.924 g/cm2. T-score (standard deviation relative to young adult mean): -2.3 . -0.6% change since prior study. HIP ANALYSIS: Lowest bone mineral density is within the left femoral neck, 0.714 g/cm2. T-score (standard deviation relative to young adult mean): -2.3 . -2.5% change since prior study. XR/XR DEXA axial skeleton IMPRESSION: World Oscar Organization Classification: Osteopenia - Moderate Fracture Risk Electronically authenticated by: ANTONY WATSON Date: 12/23/2022 12:21 Dictated By: Antony Watson M.D. Signed By: 12/23/22 1223 DD/ 122 TD/TT: [employer] Sales Representative: Procedure Note Radiology, Radiologist, MD - 12/23/2022 [place] [address] XRay Report Signed Patient: Nadia Chin MMR#: [id number] : 1945cct:[id number] Age/Sex: 77 / FADM Date: 12/23/22 Loc: RAD Attending Dr: DOMINIC FRANCOIS Ordering Physician: DOMINIC FRANCOIS Date of Service: 12/23/22 Procedure(s): XR DEXA axial skeleton Accession Number(s): [id number] cc: DOMINIC FRANCOIS [place] [address] Patient Name: NADIA CHIN MRN: [facility]:[id number] date: 1945 Sex: F Assigned Patient Location: RAD Current Patient Location: RAD Accession/Order Number: [id number] Exam Date: 12/23/2022 11:20 Report Date: 12/23/2022 12:21 At the request of: DOMINIC FRANCOIS Procedure: XR DEXA axial skeleton EXAMINATION: XR DEXA axial skeleton HISTORY: Estrogen Deficiency E28.39 COMPARISON: DEXA bone densitometry 03/30/2018 TECHNIQUE: Dual-energy X-ray absorptiometry (DXA) was performed. FINDINGS: SPINE ANALYSIS: Average bone mineral density is 0.924 g/cm2. T-score (standard deviation relative to young adult mean): -2.3 . -0.6% change since prior study. HIP ANALYSIS: Lowest bone mineral density is within the left femoral neck, 0.714 g/cm2. T-score (standard deviation relative to young adult mean): -2.3 . -2.5% change since prior study. XR/XR DEXA axial skeleton IMPRESSION: World Oscar Organization Classification: Osteopenia - Moderate FractureRisk Electronically authenticated by: ANTONY WATSON Date: 12/23/2022 12:21 Dictated By: Antony Watson M.D. Signed By:12/23/22 1223 DD/ 1221 TD/TT: [employer] Sales Representative: Dominic Francois MD [facility] Final Result documented in this encounter Visit Diagnoses Not on filedocumented in this encounter Care Teams Principal Scientist Relationship Specialty Start Date End Date Dominic Francois MD [address] [place] [address] PCP - Devoted 02/10/22 02/09/23 Dominic Francois MD [address] [facility] 110 [place] [address] PCP - General Internal Medicine 07/23/22 Dominic Francois MD [address] [facility] [address] [place] [address] PCP - Helena PETERS 02/10/23 02/10/24 documented as of this encounter
--- OUTSIDE RECORDS SUMMARY | 2024-07-20 10:32 | XMS_ITS | Encounter Summary ---
Author Organization [facility] Address [address] [place] [address] Care Team Providers Care Corporate Attorney Name Role Phone Shaw Francois MD Primary Care Provider [phone] Encounter Details Date Type Department Care Team (Late st Contact Info) Description 03/16/2024 Abstract [facility] [address] [facility] 110 [place] [address] Shaw Francois MD [address] [facility] 110 [place], [place] [address] Social History Tobacco Use Types Packs/Day Years [...] How often do you attend mosque or adventist serv ices? Never 10/09/2022 Do [...] Recorded Patient Health Questionnaire-2 Score 0 12/16/2022 [facility] of Occupat ional Health - [...] place to sleep or slept in a custodial (including now)? No 10/09/2022 Comments Unknown Sex [...] AM EDT Procedure Visit [facility] [address] [place] [address] Roge Rodríguez, DPM [address] [place], [place] [address] documented as of this encounter Visit Diagnoses Not on filedocumented in this encounter Care Teams Corporate Attorney Relationship Specialty Start Date End Date Shaw Francois MD [address] [facility] [address] [place] [address] PCP - General Internal Medicine 07/23/22 documented as of this encounter
--- OUTSIDE RECORDS SUMMARY | 2024-07-20 10:32 | XMS_ITS | Encounter Summary ---
Author Organization [facility] Address [address] [place] [address] Care Team Providers Care Audio Recording Engineer Name Role Phone Shaw Francois MD Primary Care Provider [phone] Encounter Details Date Type Department Care Team (Late st Contact Info) Description 04/13/2024 Abstract [facility] [address] [facility] [address] [place] [address] Shaw Francois MD [address] [facility] 110 [place], [place] [address] Social History Tobacco Use Types Packs/Day Years [...] How often do you attend sikh or zoroastrian serv ices? Never 10/09/2022 Do you belong [...] Recorded Patient Health Questionnaire-2 Score 0 12/16/2022 [facility] of Occupat ional Health - [...] place to sleep or slept in a snf (including now)? No 10/09/2022 Comments Unknown Sex [...] AM EDT Procedure Visit [facility] [address] [place] [address] Roge Rodríguez, DPM [address] [place], [place] [address] documented as of this encounter Visit Diagnoses Not on filedocumented in this encounter Care Teams Audio Recording Engineer Relationship Specialty Start Date End Date Shaw Francois MD [address] [facility] [place] [address] PCP - General Internal Medicine 07/23/22 documented as of this encounter
--- OUTSIDE RECORDS SUMMARY | 2024-07-20 10:32 | XMS_ITS | Encounter Summary ---
Author Organization [facility] Address [address] [place] [address] Care Team Providers Care Wearing Apparel Shaker Name Role Phone Shaw Francois MD Primary Care Provider [phone] Shaw Francois MD Unavailable [phone] Encounter Details Date Type Department Care Team (Late st Contact Info) Description 02/09/2024 Abstract [facility] [address] [facility] 110 [place] [address] Shaw Francois MD 112 [facility] 110 [place] [address] Social History Tobacco Use Types [...] week 10/09/2022 How often do you attend shinto or sabianism serv ices? Never 10/09/2022 Do you belong to any clubs o r organizations such as shinto groups, unions, fraternal or athletic groups, or [...] Questionnaire-2 Score 0 12/16/2022 [facility] - Occupational Stress Questionnaire Answer Date Recorded [...] place to sleep or slept in a senior care (including now)? No 10/09/2022 Comments Unknown Sex [...] AM EDT Procedure [facility] [address] [facility] [place] [address] Roge Rodríguez, DPM 1900 [place] [address] documented as of this encounter Visit Diagnoses Not on filedocumented in this encounter Care Teams Wearing Apparel Shaker Relationship Specialty Start Date End Date Shaw Francois MD [address] [facility] [address] [place] [address] PCP - General Internal Medicine 07/23/22 Shaw Francois MD [address] [facility] [address] [place] [address] PCP - Helena PETERS 02/10/23 02/10/24 documented as of this encounter
--- OUTSIDE RECORDS SUMMARY | 2024-07-20 10:32 | XMS_ITS | Encounter Summary ---
Author Organization [facility] Address [address] [place] [address] Care Team Providers Care Bingo Usher Name Role Phone Shaw Francois MD Unavailable [phone] Shaw Francois MD Primary Care Provider [phone] Shaw Francois MD Unavailable [phone] Encounter Details Date Type Department Care Team (Late st Contact Info) Description 12/17/2022 Abstract [facility] 112 [facility] 110 [place] [address] Shaw Francois MD 112 [facility] 110 [place] [address] Social History Tobacco Use Types [...] week 10/09/2022 How often do you attend presybeterian or episcopal serv ices? Never 10/09/2022 Do you belong to any clubs o r organizations such as presybeterian groups, unions, fraternal or athletic groups, or [...] Health Questionnaire-2 Score 0 12/16/2022 [facility] Occupat [facility] - Occupational Stress Questionnaire Answer Date [...] place to sleep or slept in a halfway (including now)? No 10/09/2022 Comments Unknown Sex [...] AM EDT Procedure Visit [facility] [address] [place] [address] Roge Rodríguez, DPM 1900 [place], [place] [address] documented as of this encounter Visit Diagnoses Not on filedocumented in this encounter Care Teams Bingo Usher Relationship Specialty Start Date End Date Shaw Francois MD [address] [facility] 110 [place] [address] PCP - Devoted 02/10/22 02/09/23 Shaw Francois MD [address] [facility] [address] [place] [address] PCP - General Internal Medicine 6/13/23 Shaw Francois MD 112 [facility] 110 [place] [address] PCP - Helena PETERS 02/10/23 02/10/24 documented as of this encounter
--- OUTSIDE RECORDS SUMMARY | 2024-07-20 10:32 | XMS_ITS | Encounter Summary ---
Author Organization [facility] Address [address] [place] [address] Care Team Providers Care Crm Specialist Name Role Phone Shaw Francois MD Primary Care Provider [phone] Encounter Details Date Type Department Care Team (Late st Contact Info) Description 02/12/2024 Abstract [facility] [address] [facility] 110 [place] [address] Shaw Francois MD [address] [facility] 110 [place], [place] [address] Social History Tobacco Use Types Packs/Day Years [...] How often do you attend nondenominational or methodist serv ices? Never 10/09/2022 Do you belong [...] Recorded Patient Health Questionnaire-2 Score 0 12/16/2022 [facility] Occupat ional Health - Occupational [...] place to sleep or slept in a skilled nursing (including now)? No 10/09/2022 Comments Unknown Sex [...] AM EDT Procedure Visit [facility] [address] [place] [address] Roge Rodríguez, DPM 1900 [place], [place] [address] documented as of this encounter Visit Diagnoses Not on filedocumented in this encounter Care Teams Crm Specialist Relationship Specialty Start Date End Date Shaw Francois MD [address] [facility] [address] [place] [address] PCP - General Internal Medicine 07/23/22 documented as of this encounter
--- OUTSIDE RECORDS SUMMARY | 2024-07-20 10:32 | XMS_ITS | Encounter Summary ---
Author Organization [facility] Address [address] [place] [address] Care Team Providers Care Ela Teacher Name Role Phone Shaw Francois MD Primary Care Provider [phone] Encounter Details Date Type Department Care Team (Late st Contact Info) Description 04/26/2024 Abstract [facility] [address] [facility] [address] [place] [address] Shaw Francois MD [address] [facility] 110 [place], [place] [address] Social History Tobacco Use Types Packs/Day Years [...] week 10/09/2022 How often do you attend protestant or temple serv ices? Never 10/09/2022 Do you belong to any clubs o r organizations such as protestant groups, unions, fraternal or athletic groups, or [...] Recorded Patient Health Questionnaire-2 Score 0 12/16/2022 [facility] of Occupat ional Health - Occupational [...] place to sleep or slept in a mcfp (including now)? No 10/09/2022 Comments Unknown Sex [...] AM EDT Procedure Visit [facility] [address] [place] [address] Roge Rodríguez, DPM 1900 [place], [place] [address] documented as of this encounter Visit Diagnoses Not on filedocumented in this encounter Care Teams Ela Teacher Relationship Specialty Start Date End Date Shaw Francois MD [address] [facility] [address] [place] [address] PCP - General Internal Medicine 07/23/22 documented as of this encounter
--- OUTSIDE RECORDS SUMMARY | 2024-07-20 10:32 | XMS_ITS | Encounter Summary ---
Author Organization [facility] Address [address] [place] [address] Care Team Providers Care Iron Worker Apprentice Name Role Phone Shaw Francois MD Primary Care Provider [phone] Encounter Details Date Type Department Care Team (Late st Contact Info) Description 04/29/2024 Abstract [facility] [address] [facility] [address] [place] [address] Shaw Francois MD [address] [facility] 110 [place], [place] [address] Social History Tobacco Use Types Packs/Day Years [...] week 10/09/2022 How often do you attend adventism or worship serv ices? Never 10/09/2022 Do you belong to any clubs o r organizations such as adventism groups, unions, fraternal or athletic groups, or [...] Recorded Patient Health Questionnaire-2 Score 0 12/16/2022 [facility] of Occupat ional Health - [...] AM EDT Procedure Visit [facility] [address] [place] [address] Roge Rodríguez, DPM 1900 [place], [place] [address] documented as of this encounter Visit Diagnoses Not on filedocumented in this encounter Care Teams Iron Worker Apprentice Relationship Specialty Start Date End Date Shaw Francois MD [address] [facility] 110 [place] [address] PCP - General Internal Medicine 07/23/22 documented as of this encounter
--- OUTSIDE RECORDS SUMMARY | 2024-07-20 10:32 | XMS_ITS | Encounter Summary ---
Author Organization [facility] Address [address] [place] [address] Care Team Providers Care Religious Ritual Slaughterer Name Role Phone Shaw Francois MD Primary Care Provider Encounter Details Date Type Department Care Team (Late st Contact Info) Description 03/11/2024 Abstract [facility] [address] [facility] 110 [place] [address] Shaw Francois MD [address] [facility] 110 [place], [place] [address] Social History Tobacco Use Types Packs/Day Years [...] How often do you attend protestant or taoism serv ices? Never 10/09/2022 Do you belong [...] Recorded Patient Health Questionnaire-2 Score 0 12/16/2022 [facility] of Occupat ional Health - [...] place to sleep or slept in a usp (including now)? No 10/09/2022 Comments Unknown Sex [...] AM EDT Procedure Visit [facility] [address] [place] [address] Roge Rodríguez, DPM 1900 [place], [place] [address] documented as of this encounter Visit Diagnoses Not on filedocumented in this encounter Care Teams Religious Ritual Slaughterer Relationship Specialty Start Date End Date Shaw Francois MD [address] [facility] [address] [place] [address] PCP - General Internal Medicine 07/23/22 documented as of this encounter
--- OUTSIDE RECORDS SUMMARY | 2024-07-20 10:32 | XMS_ITS | Encounter Summary ---
Author Organization [facility] Address [address] [place] [address] Care Team Providers Care Nursing Coordinator Name Role Phone Shaw Francois MD Primary Care Provider [phone] Encounter Details Date Type Department Care Team (Late st Contact Info) Description 02/24/2024 Abstract [facility] [address] [facility] 110 [place] [address] Shaw Francois MD [address] [facility] 110 [place], [place] [address] Social History Tobacco Use Types Packs/Day Years [...] week 10/09/2022 How often do you attend samaritan or nondenominational serv ices? Never 10/09/2022 Do you belong to any clubs o r organizations such as samaritan groups, unions, fraternal or athletic groups, or [...] Recorded Patient Health Questionnaire-2 Score 0 12/16/2022 [facility] of Occupat ional Health - [...] AM EDT Procedure Visit [facility] [address] [place] [address] Roge Rodríguez, DPM 1900 [place], [place] [address] documented as of this encounter Visit Diagnoses Not on filedocumented in this encounter Care Teams Nursing Coordinator Relationship Specialty Start Date End Date Shaw Francois MD [address] [facility] 110 [place] [address] PCP - General Internal Medicine 07/23/22 documented as of this encounter
--- OUTSIDE RECORDS SUMMARY | 2024-07-20 10:32 | XMS_ITS | Encounter Summary ---
Author Organization [facility] Address [address] [place] [address] Care Team Providers Care Perennial House Manager Name Role Phone Shaw Francois MD Primary Care Provider [phone] Encounter Details Date Type Department Care Team (Late st Contact Info) Description 04/21/2024 Abstract [facility] [address] [facility] [address] [place] [address] Shaw Francois MD [address] [facility] 110 [place], [place] [address] Social History Tobacco Use Types Packs/Day Years [...] week 10/09/2022 How often do you attend holiness or catholic serv ices? Never 10/09/2022 Do you belong to any clubs o r organizations such as holiness groups, unions, fraternal or athletic groups, or [...] Recorded Patient Health Questionnaire-2 Score 0 12/16/2022 [facility] of Occupat ional Health - Occupational [...] place to sleep or slept in a fdc (including now)? No 10/09/2022 Comments Unknown Sex [...] AM EDT Procedure Visit [facility] [address] [place] [address] Roge Rodríguez, DPM 1900 [place], [place] [address] documented as of this encounter Visit Diagnoses Not on filedocumented in this encounter Care Teams Perennial House Manager Relationship Specialty Start Date End Date Shaw Francois MD [address] [facility] 110 [place] [address] PCP - General Internal Medicine 07/23/22 documented as of this encounter
--- OUTSIDE RECORDS SUMMARY | 2024-07-20 10:32 | XMS_ITS | Encounter Summary ---
Author Organization [facility] Address [address] [place] [address] Care Team Providers Care Shoe Lacer Name Role Phone Shaw Francois MD Primary Care Provider [phone] Encounter Details Date Type Department Care Team (Late st Contact Info) Description 03/18/2024 Abstract [facility] [address] [facility] 110 [place] [address] Shaw Francois MD [address] [facility] 110 [place], [place] [address] Social History Tobacco Use Types Packs/Day Years [...] week 10/09/2022 How often do you attend anabaptist or buddhist serv ices? Never 10/09/2022 Do you belong to any clubs o r organizations such as anabaptist groups, unions, fraternal or athletic groups, or [...] Recorded Patient Health Questionnaire-2 Score 0 12/16/2022 [facility] of Occupat ional Health - Occupational [...] place to sleep or slept in a penitentiary (including now)? No 10/09/2022 Comments Unknown Sex [...] AM EDT Procedure Visit [facility] [address] [place] [address] Roge Rordíguez, DPM 1900 [place], [place] [address] documented as of this encounter Visit Diagnoses Not on filedocumented in this encounter Care Teams Shoe Lacer Relationship Specialty Start Date End Date Shaw Francois MD [address] [facility] [address] [place] [address] PCP - General Internal Medicine 07/23/22 documented as of this encounter
--- OUTSIDE RECORDS SUMMARY | 2024-07-20 10:32 | XMS_ITS | Encounter Summary ---
Author Organization [facility] Address [address] [place] [address] Care Team Providers Care Wave Guide Assembler Name Role Phone Shaw Francois MD Unavailable [phone] Shaw Francois MD Primary Care Provider [phone] Shaw Francois MD Unavailable [phone] Encounter Details Date Type Department Care Team (Late st Contact Info) Description 12/23/2022 Abstract [facility] 112 [facility] 110 [place] [phone] Shaw Francois MD 112 [facility] 110 [place] [address] Social History Tobacco Use Types [...] week 10/09/2022 How often do you attend confucianist or orthodoxy serv ices? Never 10/09/2022 Do you belong to any clubs o r organizations such as confucianist groups, unions, fraternal or athletic groups, or [...] Recorded Patient Health Questionnaire-2 Score 0 12/16/2022 [facility] - Occupational Stress Questionnaire Answer Date [...] Procedure Visit [facility] [address] [place] [phone] Roge Rodríguez, DPM [address] [place], [place] [id number] documented as of this encounter Visit Diagnoses Not on filedocumented in this encounter Care Teams Wave Guide Assembler Relationship Specialty Start Date End Date Shaw Francois MD [address] [facility] 110 [place] [address] PCP - Devoted 02/10/22 02/09/23 Shaw Francois MD [address] [facility] [address] [place] [address] PCP - General Internal Medicine 6/13/23 Shaw Francois MD 112 [facility] 110 [place] [address] PCP - Helena PETERS 02/10/23 02/10/24 documented as of this encounter
--- OUTSIDE RECORDS SUMMARY | 2024-07-20 10:32 | XMS_ITS | Encounter Summary ---
Author Organization [facility] Address [address] [place] [address] Care Team Providers Care French Translator Name Role Phone Shaw Francois MD Primary Care Provider [phone] Encounter Details Date Type Department Care Team (Late st Contact Info) Description 03/08/2024 Abstract [facility] [address] [facility] 110 [place] [phone] Shaw Francois MD [address] [facility] 110 [place], [place] [id number] Social History Tobacco Use Types Packs/Day Years [...] week 10/09/2022 How often do you attend tenriism or bahai serv ices? Never 10/09/2022 Do you belong to any clubs o r organizations such as tenriism groups, unions, fraternal or athletic groups, or [...] Recorded Patient Health Questionnaire-2 Score 0 12/16/2022 [facility] - [...] AM EDT Procedure Visit [facility] [address] [place] [address] Roge Rodríguez, DPM [address] [place], [place] [phone] documented as of this encounter Visit Diagnoses Not on filedocumented in this encounter Care Teams French Translator Relationship Specialty Start Date End Date Shaw Francois MD [address] [facility] 110 [place] [address] PCP - General Internal Medicine 07/23/22 documented as of this encounter
--- OUTSIDE RECORDS SUMMARY | 2024-07-20 10:32 | XMS_ITS | Encounter Summary ---
Author Organization [facility] Address [address] [place] [address] Care Team Providers Care Pouch Making Machine Operator Name Role Phone Shaw Francois MD Primary Care Provider Encounter Details Date Type Department Care Team (Late st Contact Info) Description 04/20/2024 Abstract [facility] [address] [facility] 110 [place] [phone] Shaw Francois MD [address] [facility] 110 [place], [place] [id number] Social History Tobacco Use Types Packs/Day Years [...] week 10/09/2022 How often do you attend zoroastrianism or restorationist serv ices? Never 10/09/2022 Do you belong to any clubs o r organizations such as zoroastrianism groups, unions, fraternal or athletic groups, or [...] Recorded Patient Health Questionnaire-2 Score 0 12/16/2022 [facility] - Occupational [...] place to sleep or slept in a correction (including now)? No 10/09/2022 Comments Unknown Sex [...] AM EDT Procedure Visit [facility] [address] [place] [address] Roge Rodríguez, DPM [address] [place], [place] [phone] documented as of this encounter Visit Diagnoses Not on filedocumented in this encounter Care Teams Pouch Making Machine Operator Relationship Specialty Start Date End Date Shaw Francois MD [address] [facility] 110 [place] [address] PCP - General Internal Medicine 07/23/22 documented as of this encounter
--- OUTSIDE RECORDS SUMMARY | 2024-07-20 10:32 | XMS_ITS | Encounter Summary ---
Author Organization [facility] Address [address] [place] [address] Care Team Providers Care Street Department Dispatcher Name Role Phone Shaw Francois MD Primary Care Provider [phone] Encounter Details Date Type Department Care Team (Late st Contact Info) Description 03/03/2024 Abstract [facility] [address] [facility] 110 [place] [address] Shaw Francois MD [address] [facility] 110 [place], [place] [address] Social History Tobacco Use Types Packs/Day Years [...] week 10/09/2022 How often do you attend cheondoism or buddhism serv ices? Never 10/09/2022 Do you belong to any clubs o r organizations such as cheondoism groups, unions, fraternal or athletic groups, or [...] Recorded Patient Health Questionnaire-2 Score 0 12/16/2022 [facility] - [...] place to sleep or slept in a intermediate (including now)? No 10/09/2022 Comments Unknown Sex [...] AM EDT Procedure Visit [facility] [address] [place] [address] Roge Rodríguez, DPM [address] [place], [place] [address] documented as of this encounter Visit Diagnoses Not on filedocumented in this encounter Care Teams Street Department Dispatcher Relationship Specialty Start Date End Date Shaw Francois MD [address] [facility] [address] [place] [address] PCP - General Internal Medicine 07/23/22 documented as of this encounter
--- OUTSIDE RECORDS SUMMARY | 2024-07-20 10:32 | XMS_ITS | Encounter Summary ---
Author Organization [facility] Address [address] [place] [address] Care Team Providers Care Home Theater Experience Expert Name Role Phone Shaw Francois MD Primary Care Provider [phone] Shaw Francois MD Unavailable [phone] Encounter Details Date Type Department Care Team (Late st Contact Info) Description 02/05/2024 Abstract [facility] [address] [facility] 110 [place] [address] Shaw Francois MD 112 [facility] 110 [place] [address] Social History Tobacco Use Types [...] week 10/09/2022 How often do you attend synagogue or sikh serv ices? Never 10/09/2022 Do you belong to any clubs o r organizations such as synagogue groups, unions, fraternal or athletic groups, or [...] Recorded Patient Health Questionnaire-2 Score 0 12/16/2022 [facility] - Occupational Stress Questionnaire Answer Date [...] AM EDT Procedure Visit [facility] [address] [facility] [address] Roge Rodríguez, DPM [address] [place] [address] documented as of this encounter Visit Diagnoses Not on filedocumented in this encounter Care Teams Home Theater Experience Expert Relationship Specialty Start Date End Date Shaw Francois MD [address] [facility] [address] [place] [address] PCP - General Internal Medicine 07/23/22 Shaw Francois MD [address] [facility] [address] [place] [address] PCP - Helena PETERS 02/10/23 02/10/24 documented as of this encounter
--- OUTSIDE RECORDS SUMMARY | 2024-07-20 10:33 | XMS_ITS | Encounter Summary ---
Author Organization [facility] Address [address] [place] [address] Care Team Providers Care Visual Design Lead Name Role Phone Shaw Francois MD Primary Care Provider [phone] Shaw Francois MD Unavailable [phone] Encounter Details Date Type Department Care Team (Late st Contact Info) Description 09/11/2023 Orders Only [facility] [address] [facility] 110 [place] [address] Jacqueline Brito LPN [address] [place] [address] Estrogen deficiency Social History Tobacco Use Types Packs/Day Years [...] How often do you attend adventism or mormon serv ices? Never 10/09/2022 Do you belong [...] Recorded Patient Health Questionnaire-2 Score 0 12/16/2022 [facility] - [...] AM EDT Procedure Visit [facility] [address] [facility] [place] [address] Roge Rodríguez, DPM [address] [place] [address] documented as of this encounter Visit Diagnoses Diagnosis Estrogen deficiency Other ovarian failure documented in this encounter Care Teams Visual Design Lead Relationship Specialty Start Date End Date Shaw Francois MD [address] [facility] [address] [place] [address] PCP - General Internal Medicine 07/23/22 Shaw Francois MD [address] [facility] [address] [place] [address] PCP - Helena PETERS 02/10/23 02/10/24 documented as of this encounter
--- OUTSIDE RECORDS SUMMARY | 2024-07-20 10:33 | XMS_ITS | Clinical Summary ---
Author Organization [facility] Address [address] [place] [address] Care Team Providers Care Sealer Dry Cell Name Role Phone Shaw Oconnor MD Primary Care Provider [phone] Social History Tobacco Use Types Packs/Day Years Used Date Smoking Tobacco: Never Assessed Comments Unknown Sex and Gender Information Value Date Recorded Sex Assigned at Not on file Legal Sex Female 9:44 AM EST Gender Identity Not on file Sexual Orientation Not on file Plan of Treatment Health Maintenance Due Date Last Done Comments Depression Screen 1955 DTaP/Tdap/Td vaccine (1 - Tdap) 11/09/1962 Shingles vaccine (1 of 2) 11/09/1993 Respiratory Syncytial Virus (RSV) or age 60 yrs+ (1 - 1-dose 75+ series) 11/09/2018 COVID-19 Vaccine ( season) 2023 11/27/2021, 11/24/2020, 03/31/2020, Additional history exists Annual Wellness Visit (Medicare Advantage) 02/11/2024 Pneumococcal 50+ years Vaccine Completed 12/07/2019, 11/11/2019, 07/11/2012 DEXA (modify frequency per FRAX score) Completed 09/12/2020, 03/23/2018 Flu vaccine Completed 12/03/2023, 11/11, 11/29/2022, Additional history exists Hepatitis A vaccine Aged Out No longe r eligible based on patient's age to complete this topic Hepatitis B vaccine Aged Out No longe r eligible based on patient's age to complete this topic Hib vaccine Aged Out No longer eligi ble based on patient's age to complete this topic Meningococcal (ACWY) vaccine Aged Out No longer eligible based on patient's age to complete this topic Meningococcal B vaccine Aged Out No l onger eligible based on patient's age to complete this topic Polio vaccine Aged Out No longer elig ible based on patient's age to complete this topic Insurance Care Teams Sealer Dry Cell Relationship Specialty Start Date End Date Shaw Oconnor MD [address] [place] [address] PCP - General Family Medicine 01/16/24
--- OUTSIDE RECORDS SUMMARY | 2024-07-20 10:33 | XMS_ITS | Encounter Summary ---
Author Organization [facility] Address [address] [place] [address] Care Team Providers Care Content Designer Name Role Phone Shaw Francios MD Primary Care Provider [phone] Shaw Francois MD Unavailable [phone] Encounter Details Date Type Department Care Team (Late st Contact Info) Description 09/02/2023 Abstract [facility] [address] [facility] 110 [place] [phone] Shaw Francois MD 112 [facility] 110 [place] [address] Social History Tobacco Use Types [...] week 10/09/2022 How often do you attend zoroastrian or adventist serv ices? Never 10/09/2022 Do you belong to any clubs o r organizations such as zoroastrian groups, unions, fraternal or athletic groups, or [...] Recorded Patient Health Questionnaire-2 Score 0 12/16/2022 [facility] - Occupational Stress Questionnaire Answer Date [...] AM EDT Procedure Visit [facility] [address] [facility] [place] [address] Roge Rodríguez, DPM [address] [place] [address] documented as of this encounter Visit Diagnoses Not on filedocumented in this encounter Care Teams Content Designer Relationship Specialty Start Date End Date Shaw Francois MD [address] [facility] [address] [place] [address] PCP - General Internal Medicine 07/23/22 Shaw Francois MD [address] [facility] [address] [place] [address] PCP - Helena PETERS 02/10/23 02/10/24 documented as of this encounter
--- OUTSIDE RECORDS SUMMARY | 2024-07-20 10:33 | XMS_ITS | Encounter Summary ---
Author Organization [facility] Address [address] [place] [address] Care Team Providers Care Director Data Name Role Phone Shaw Francois MD Primary Care Provider [phone] Encounter Details Date Type Department Care Team (Late st Contact Info) Description 06/14/2024 Abstract [facility] [address] [facility] 110 [place] [address] Shaw Francois MD [address] [facility] 110 [place], [place] [address] Social History Tobacco Use Types Packs/Day Years [...] How often do you attend confucianist or confucianist serv ices? Never 10/09/2022 Do [...] Recorded Patient Health Questionnaire-2 Score 0 06/11/2024 [facility] Occupat ional Health - [...] AM EDT Procedure Visit [facility] [address] [place] [address] Roge Rodríguez, DPM [address] [place], [place] [address] documented as of this encounter Visit Diagnoses Not on filedocumented in this encounter Care Teams Director Data Relationship Specialty Start Date End Date Shaw Francois MD [address] [facility] [address] [place] [address] PCP - General Internal Medicine 07/23/22 documented as of this encounter
--- OUTSIDE RECORDS SUMMARY | 2024-07-20 10:33 | XMS_ITS | Encounter Summary ---
Author Organization [facility] Address [address] [place] [address] Care Team Providers Care Treasurer Name Role Phone Shaw Francois MD Primary Care Provider [phone] Shaw Francois MD Unavailable [phone] Encounter Details Date Type Department Care Team (Late st Contact Info) Description 07/15/2023 Abstract [facility] [address] [facility] 110 [place] [address] Shaw Francois MD 112 [facility] 110 [place] [address] Social History Tobacco Use Types [...] week 10/09/2022 How often do you attend mu-ism or cheondoism serv ices? Never 10/09/2022 Do you belong to any clubs o r organizations such as mu-ism groups, unions, fraternal or athletic groups, or [...] Recorded Patient Health Questionnaire-2 Score 0 12/16/2022 [facility] - Occupational Stress Questionnaire Answer Date [...] [facility] [address] [facility] [place] [address] Roge Rodríguez, DPM [address] [place] [address] documented as of this encounter Visit Diagnoses Not on filedocumented in this encounter Care Teams Treasurer Relationship Specialty Start Date End Date Shaw Francois MD [address] [facility] [address] [place] [address] PCP - General Internal Medicine 07/23/22 Shaw Francois MD [address] [facility] [address] [place] [address] PCP - Helena PETERS 02/10/23 02/10/24 documented as of this encounter
--- OUTSIDE RECORDS SUMMARY | 2024-07-20 10:33 | XMS_ITS | Clinical Summary ---
Author Organization [facility] Address [address] [place] [address] Care Team Providers Care Tax Processor Name Role Phone Alessandro ARREDONDO MD, Shaw Carmona Primary Care Provider [phone] Allergies Active Allergy Reactions Criticality Noted Date Comments Sulfa (Sulfonamide Antibiotics) Rash,Swelling High 0 04/17/2011 Medications sertraline (ZOLOFT) 50 mg tablet Take 1 tablet by mouth once daily. 0 04/17/2011 Active Multivitamins-Mi nerals-Lutein (CENTRUM SILVER) tab Take 1 tablet by mouth once daily. 90 tablet 4 04/17/2011 Active Cholecalciferol, Vitamin D3, 25 mcg (1,000 unit) cap Take by mouth once daily. Active losartan (COZAAR) 25 mg tablet Take 25 mg by mouth once daily. 02/08/2015 Active RANITIDINE HCL (ZANTAC ORAL) Take by mouth. Active levothyroxine (SYNTHROID) 125 mcg tablet Take 125 mcg by mouth once daily. 03/13/2019 Active omeprazole (PRILOSEC) 20 mg capsule Take 20 mg by mouth once daily. Takes every other day. Active Active Problems Problem Noted Date Diagnosed Date History of breast cancer 06/10/2022 Osteopenia 07/27/2013 Breast cancer, right breast 04/19/2011 Encounters Date Type Department Care Team Description 05/18/2024 Telephone Hematology/Oncology [address] [place] [address] [place] [address] Agnieszka Palomares, DEBI Mastectomy bra/prosthesis request from Last 3 Months Immunizations Immunization Administration Dates Next Due influenza (HD-IIV3) vaccine, age 65+ yr, high dose, trivalent, PF (FLUZONE HIGH-DOSE) 11/14/2018,11/24/2017,12/11/2016 influenza (HD-IIV4) vaccine, age 65+ yr, high dose, quadrivalent, PF (FLUZONE HIGH-DOSE) 12/07/2019 influenza (IIV3) vaccine, tr ivalent (AFLURIA, FLULAVAL, FLUVIRIN, FLUZONE) 11/24/2019 influenza (IIV4) vaccine, ag e 6 mo - 64 yr, quadrivalent (AFLURIA, FLULAVAL, FLUZONE) 11/28/2015 influenza (IIV4) vaccine, qu adrivalent (AFLURIA, FLULAVAL, FLUZONE) 11/28/2015 influenza (aIIV4) vaccine, a ge 65+ yr, quadrivalent, PF (FLUAD QUAD) 11/17/2020 influenza vaccine, whole virus 11/28/2008 pneumococcal conjugate (PCV1 3) vaccine, 13 valent (PREVNAR 13) 12/07/2019,11/11/2019 pneumococcal polysaccharide (PPV23) vaccine, 23 valent (PNEUMOVAX 23) 07/11/2012 Family History Medical History Relation Comments lung cancer [Other] Brother with metesta tic disease Breast Cancer Maternal Aunt diagnosed in her 40's Prostate Cancer Maternal Grandfather Breast Cancer Other 1 maternal cousin diagnosed late 30's early 40's Breast Cancer Sister other cancers [Other] Other 2 no known f amily h/o: ovarian,uterine,colon,pancreatic,thyroid,b rain,melenoma,leukemia,sarcomas Relation Status Comments Brother Maternal Aunt Maternal Grandfather Other 1 Sister Other 2 Social History Tobacco Use Types Packs/Day Years Used Date Smoking Tobacco: Never Smokeless Tobacco: Never Alcohol Use Standard Drinks/Week Comments Yes 0 (1 standard drink = 0.6 oz pur e alcohol) once every 3 months a glass PHQ-2 Answer Date Recorded PHQ-2 score 0 2019 Area Deprivation Index Answer Date Pola rded National Score (1-100), lower number is lower ri sk 53 06/10/2022 State Score (1-10), lower number is lower risk N ot on file 06/10/2022 Data from: https://www.neighborhoodatlas.medicine.[facility] [place].edu/. Last address used for calculation [address] 06/10/2022 Comments No Sex and Gender Information Value Date Recorded Sex Assigned at Not on file Legal Sex Female 9:58 AM EST Gender Identity Not on file Sexual Orientation Not on file Last Filed Vital Signs Vital Sign Reading Time Taken Comments Blood Pressure 133/63 06/10/2022 10:20 AM EDT Pulse 68 06/10/2022 10:20 AM EDT Temperature 36.3 C (97.4 F) 06/10/2022 10:20 AM EDT Respiratory Rate 16 06/10/2022 10:20 AM EDT Oxygen Saturation 97% 06/10/2022 10:20 AM EDT Inhaled Oxygen Concentration - - Weight 80.7 kg (178 lb) 06/10/2022 10:20 AM EDT Height 168 cm (5' 6.14 ) 06/10/2022 10:20 AM EDT Body Mass Index 28.61 06/10/2022 10:20 AM EDT Plan of Treatment Health Maintenance Due Date Last Done Comments Anxiety Screening 11/09/1961 Depression Screening 11/09/1961 DTaP,Tdap,Td Vaccine (1 - Tdap) 11/09/1962 Shingrix Vaccine (1 of 2) 11/09/1993 Bone Density Screening 11/09/2008 RSV Vaccine (1 - 1-dose 75+ series) 11/09/2018 Covid-19 Vaccine (5 - 2023-2 5 season) 2023 11/27/2021, 11/24/2020, 03/31/2020, Additional history exists Advance Directive Discussion 02/11/2024 Diabetes Screening 06/04/2024 06/04/2021, 1 , 2019, Additional history exists Influenza Vaccine (Season Ended) 2024 12/12/2021, 11/17/2020, 11/16/2020, Additional history exists Pneumococcal Vaccine: 50+ Completed 2019, 11/11/2019, 02/08/2015, Additional history exists Procedures Procedure Name Priority Date/Time Associated Diagnosis Comments COMPREHENSIVE METABOLIC PANEL Routine 06/04/2021 9:57 AM EDT Malignant 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, estrogen receptor positive, unspecified site of breast (HCC) Disorder of breast, unspecified from Last 3 Months or Most Recently Relevant to Health Maintenance Results * (ABNORMAL) COMP METABOLIC PANEL (06/04/2021 9:57 AM EDT) [facility] Protein, Total 6.4 6.3 - 8.0 g/dL 06/04/2021 10:50 AM EDT [facility] Albumin 4.2 3.9 - 4.9 g/dL 06/04/2021 10:50 AM EDT [facility] Calcium, Total 9.3 8.5 - 10.2 mg/dL 06/04/2021 10:50 AM EDT [facility] Bilirubin, Total 0.6 0.2 - 1.3 mg/dL 06/04/2021 10:50 AM EDT [facility] Alkaline Phosphatase 64 34 - 123 U/L 06/04/2021 10:50 AM T [facility] AST 15 13 - 35 U/L 06/04/2021 10:50 AM EDT [facility] ALT 12 7 - 38 U/L 06/04/2021 10:50 AM T [facility] Glucose 92 74 - 99 mg/dL 06/04/2021 10:50 AM T [facility] Comment: The [place] Diabetes Association (ADA) provides guidance for cutoff values for fasting glucose and random glucose. The ADA defines fasting as no caloric intake for at least 8 hours. Fasting plasma glucose results between 100 to 125 mg/dL indicate increased risk for diabetes (prediabetes). Fasting plasma glucose results greater than or equal to 126 mg/dL meet the criteria for diagnosis of diabetes. In the absence of unequivocal hyperglycemia, results should be confirmed by repeat testing. In a patient with classic symptoms of hyperglycemia or hyperglycemic crisis, random plasma glucose results greater than or equal to 200 mg/dL meet the criteria for diagnosis of diabetes. Reference: Standards of Medical Care in Diabetes 2016, [place] Diabetes Association. Diabetes Care. 2016.39(Suppl 1). BUN 16 7 - 21 mg/dL 06/04/2021 10:50 AM T [facility] Creatinine 0.85 0.58 - 0.96 mg/dL 06/04/2021 10:50 AM EDT [facility] Sodium 145(H) 136 - 144 mmol/L 06/04/2021 10:50 AM EDT [facility] Potassium 3.8 3.7 - 5.1 mmol/L 06/04/2021 10:50 AM EDT [facility] Chloride 108(H) 97 - 105 mmol/L 06/04/2021 10:50 AM EDT [facility] CO2 27 22 - 30 mmol/L 06/04/2021 10:50 AM EDT [facility] Anion Gap 10 9 - 18 mmol/L 06/04/2021 10:50 AM EDT [facility] Estimated Glomerular Filtration Rate 71 >=60 mL/min/1. 73m 06/04/2021 10:50 AM EDT [facility] Comment:Estimated Glomerular Filtration Rate (eGFR) is calculated using the 2020 CKD-EPI creatinine equation. This equation utilizes serum creatinine, sex, and age as parameters. The creatinine assay has traceable calibration to isotope dilution- mass spectrometry. Refer to KDIGO guidelines for clinical interpretation. In patients with unstable renal function, e.g. those with acute kidney injury, the eGFR may not accurately reflect actual GFR. Blood BLOOD SPECIMEN / Unknown Venipuncture / Unknown 06/04/2021 9:57 AM EDT 06/04/2021 9:58 AM EDT Garrett Zapata MD LABORATORY Final Result [facility] [address] [place] [address] from Last 3 Months or Most Recently Relevant to Health Maintenance Insurance [facility] H[facility] Advance Directives Documents on File Type Date Recorded Patient Party Plan Sales Host/Hostess Expl anation Advance Directive(s) 06/03/2016 2:33 PM Care Teams Tax Processor Relationship Specialty Start Date End Date Shaw Francois II, MD [address] [facility] [address] [place] [address] PCP - General Internal Medicine 01/15/16
--- OUTSIDE RECORDS SUMMARY | 2024-07-20 10:33 | XMS_ITS | Clinical Summary ---
Author Organization [facility] Address [address] [place] [address] Care Team Providers Care Conference Coordinator Name Role Phone Shaw Francois MD Primary Care Provider [phone] Allergies Active Allergy Reactions Criticality Noted Date Comments Nitrofurantoin Unknown 01/01/2021 Sulfa Antibiotics Rash,Swelling,Unknown High 012 Unknown reaction Medications Multiple Vitamins-Minerals (CENTRUM SILVER ULTRA WOMENS PO) Centrum Silver Active cholecalciferol (Vitamin D-3) 50 MCG (1999 UT) tablet 1 (one) time each day at the same time. Active sertraline (Zoloft) 100 MG tabletIndications: Depressive disorder (CMS/HCC) Take 0.5 tablets (50 mg) by mouth Daily 45 tablet 3 02/02/20 24 Active Additional Information Patient taking differently: 100 mgOral Daily,Indications: Major Depressive Disorder, Reported on 07/16/[address] [facility] PAIN RELIEF EX-STRENGTH 500 MG tablet Take 1,000 mg by mouth every 6 (six) hours if needed for moderate pain 03/02/19 25 Active losartan (Cozaar) 25 MG tabletIndications: Benign essential hypertension (CMS/HCC) TAKE 1 TABLET BY MOUTH IN THE MORNING 100 tablet 3 05/06/19 25 Active levothyroxine (Synthroid, Levoxyl) 125 MCG tabletIndications: Postoperative hypothyroidism (CMS/HCC) TAKE 1 TABLET BY MOUTH IN THE MORNING BEFORE A MEAL 100 tablet 05/25/19 25 Active cefTRIAXone (Rocephin) 10 g 03/02/19 25 025 Discontin ued(Other ) Vancomycin HCl in NaCl 1.5-0.9 GM/250ML-% solution Infuse 1.5 g into a venous catheter 1 (one) time each day at the same time X 4 weeks Delivered by [facility] 03/02/19 25 025 Discontin ued(Other ) Active Problems Problem Noted Date Diagnosed Date Myalgia 03/19/2023 Smith's esophagus without dysplasia 09/05/2022 Other hammer toe(s) (acquired), right foot 09/05 Unilateral primary osteoarthritis, left knee History of breast cancer 06/10/2022 Unilateral primary osteoarthritis, right knee Decreased estrogen level 08/23/2020 Postoperative hypothyroidism 07/26/2020 Multinodular goiter 11/30/2018 Primary hypercholesterolemia 11/30/2018 Urinary incontinence 11/02/2018 Osteopenia of multiple sites 03/30/2018 Memory deficit 12/10/2017 Cervical spondylosis without myelopathy 11/25/19 18 Overview (07/16/2024): Added automatically from request for surgery [id number] Displacement of cervical int ervertebral disc without myelopathy 05/12/2017 Gastroesophageal reflux disease without esophagi tis 02/09/2016 Right bundle branch block 02/09/2016 Acquired hammer toe of right foot 01/19/2016 Osteoarthritis of lumbar spine 01/15/2016 History of hysterectomy 08/17/2015 History of right mastectomy 07/17/2015 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 [address] [place] [address] Shaw Francois MD Benign essential hypertension (CMS/HCC) (Primary Dx); Postoperative hypothyroidism (CMS/HCC); Primary hypercholesterolemia (CMS/HCC); Osteopenia of multiple sites 07/16/2024 Travel 07/14/2024 Telephone [facility] [address] [facility] [address] [place] [address] Shaw Francois MD FYI 07/13/2024 Abstract [facility] [address] [facility] [address] [place] [address] Shaw Francois MD 06/29/2024 Abstract [facility] [address] [facility] [address] [place] [address] Shaw Francois MD 06/15/2024 Abstract [facility] [address] [facility] [address] [place] [address] Shaw Francois MD 06/14/2024 Abstract [facility] [address] [facility] [address] [place] [address] Shaw Francois MD 06/11/2024 9:30 AM EDT Office Visit [facility] [address] [facility] [address] [place] [address] Shaw Francois MD Routine general medical examination at [facility] care facility (Primary Dx); ACP (advance care planning); Benign essential hypertension (CMS/HCC); Postoperative hypothyroidism (CMS/HCC); Primary hypercholesterolemia (CMS/HCC); Osteopenia of multiple sites; Stenosis of carotid artery, unspecified laterality; Closed fracture of left hip with routine healing, subsequent encounter 06/11/2024 Bamboo flowsheet [facility] [address] [facility] [address] [place] [address] Shaw Francois MD 06/11/2024 Travel 05/24/2024 Refill [facility] [address] [facility] [address] [place] [address] Shaw Francois MD Postoperative hypothyroidism (CMS/HCC) 05/17/2024 Abstract [facility] [address] [facility] [address] [place] [address] Shaw Francois MD 05/10/2024 Clinisync Result Encounter [facility] External Department Unsolicited Provider, Generic External Data 05/05/2024 Refill [facility] [address] [facility] [address] [place] [address] Shaw Francois MD Benign essential hypertension (CMS/HCC) 05/04/2024 10:30 AM EDT Office Visit [facility] [address] [place] [address] Roge Rodríguez DPM Onychomycosis (Primary Dx); Onychodystrophy; Pain in both feet 05/04/2024 Bamboo flowsheet [facility] [address] [place] [address] Roge Rodríguez DPM 05/04/2024 Travel 04/29/2024 Abstract [facility] [address] [facility] [address] [place] [address] Shaw Francois MD 04/26/2024 Abstract [facility] [address] [facility] [address] [place] [address] Shaw Francois MD 04/26/2024 Abstract [facility] [address] [facility] [address] [place] [address] Shaw Francois MD 04/21/2024 Abstract [facility] [address] [facility] [address] [place] [address] Shaw Francois MD 04/20/2024 Abstract [facility] [address] [facility] [address] [place] [address] Shaw Francois MD from Last 3 Months Immunizations Immunization Administration Dates Next Due Influenza, High Dose Seasona l, Preservative Free 11/17/2018,11/24/2017,12/11/2016 Influenza, High-dose Seasona l, Quadrivalent, Preservative Free 12/03/2023 Influenza, Seasonal, Quadriv alent, Adjuvanted 12/12/2021,11/17/2020 Influenza, injectable, quadrivalent 11/28/2015 Influenza, seasonal, injectable 12/02/2022,11/23 SARS-COV-2 (COVID-19) vaccin e, mRNA, spike protein, LNP, bivalent, preservative free, 30 mcg/0.3 mL dose, keely-sucrose formulation 11/27/2021 Family History Medical History Relation Name Comments Mental illness Father Cancer Other siblings Melanoma Neg Hx Relation Name Status Comments Father Mother Other siblings Social History Tobacco Use Types Packs/Day Years Used Date Smoking Tobacco: Never Smokeless Tobacco: Never Tobacco Cessation:Counseling Given: Yes Alcohol Use Standard Drinks/Week Comments Never 0 [...] week 10/09/2022 How often do you attend congregation or anabaptism serv ices? Never 10/09/2022 Do you belong to any clubs o r organizations such as congregation groups, unions, fraternal or athletic groups, or [...] Recorded Patient Health Questionnaire-2 Score 0 06/11/2024 [facility] Occupat ional Health - Occupational Stress [...] to sleep or slept in a senior living (including now)? No 10/09/2022 Comments Unknown Sex and Gender Information Value Date Recorded Sex Assigned at Not on file Legal Sex Female 7:19 PM EDT Gender Identity Not on file Sexual Orientation Not on file Last Filed Vital Signs Vital Sign Reading Time Taken Comments Blood Pressure 118/72 07/16/2024 10:48 AM EDT Pulse 66 07/16/2024 10:48 AM EDT Temperature - - Respiratory Rate 16 06/11/2024 9:39 AM EDT Oxygen Saturation 98% 07/16/2024 10:48 AM EDT Inhaled Oxygen Concentration - - Weight 78 kg (172 lb) 07/16/2024 10:48 AM EDT Height 170.2 cm (5' 7 ) 07/16/2024 10:48 AM EDT Body Mass Index 26.94 07/16/2024 10:48 AM EDT Plan of Treatment Upcoming Encounters Date Type Department Care Team (Late st Contact Info) Description 08/10/2024 10:15 AM EDT Procedure Visit [facility] [address] [place] [address] Roge Rodríguez DPPerri [address] [place], [place] [phone] Health Maintenance Due Date Last Done Comments Pneumococcal Vaccine: 65+ Ye ars (1 of 1 - PCV) 11/09/1993 Medicare Annual Wellness (AWV) 06/11/2025 06/11/2024 , 12/16/2022 Influenza Vaccine Completed 12/03/2023, , 12/12/2021, Additional history exists Procedures Procedure Name Priority Date/Time Associated Diagnosis Comments VITAMIN D 25 HYDROXY TOTAL Routine 06/11/2024 10:59 AM EDT Osteopenia of multiple sites T4, FREE Routine 06/11/2024 10:59 AM EDT Postoperative hypothyroidism (CMS/HCC) TSH Routine 06/11/2024 10:59 AM EDT Postoperative hypothyroidism (CMS/HCC) COMPREHENSIVE METABOLIC PANEL Routine 06/11/2024 10:59 AM EDT Benign essential hypertension (CMS/HCC) Stenosis of carotid artery, unspecified laterality LIPID PANEL Routine 06/11/2024 10:59 AM EDT Benign essential hypertension (CMS/HCC) Primary hypercholesterolemia (CMS/HCC) Stenosis of carotid artery, unspecified laterality CBC (INCLUDES DIFF/PLT) Routine 06/11/2024 10:59 AM EDT Benign essential hypertension (CMS/HCC) Stenosis of carotid artery, unspecified laterality Closed fracture of left hip with routine healing, subsequent encounter XR HIP 2 OR 3 VW LEFT 05/10/2024 11:27 AM EDT from Last 3 Months Results * Vitamin D 25 hydroxy (06/11/2024 10:59 AM EDT) VITAMIN D,25-OH,TOTAL,IA 48 30 - 100 ng/mL [facility] Comment: Vitamin D Status 25-OH Vitamin D: Deficiency: <20 ng/mL Insufficiency: 20 - 29 ng/mL Optimal: > or = 30 ng/mL For 25-OH Vitamin D testing on patients on D2-supplementation and patients for whom quantitation of D2 and D3 fractions is required, the QuestAssureD(TM) 25-OH VIT D, (D2,D3), LC/MS/MS is recommended: order code 90969 (patients >2yrs). See Note 1 Note 1 For additional information, please refer to http://education.[employer]/faq/PZP897 (This link is being provided for informational/ educational purposes only.) Blood Venous blood specimen / Unknown 06/11/2024 10:59 AM EDT 06/11/2024 10:59 AM EDT Narrative [facility] - 06/12/2024 9:21 AM EDT FASTING:YES FASTING: YES Resulting Agency Comment Performing Organization Information Site ID: QPT Name: [facility] Address: [address] [place] [address], [address] [place] [phone] Director: Joe Hickey MD us Shaw Francois MD LAB BLOOD ORDERABLES Final Res ult [facility] * CBC and differential (06/11/2024 10:59 AM EDT) WHITE BLOOD CELL COUNT 5.9 3.8 - 10.8 Thousand/u L [facility] RED BLOOD CELL COUNT 4.57 3.80 - 5.10 Million/uL [facility] HEMOGLOBIN 13.3 11.7 - 15.5 g/dL [facility] HEMATOCRIT 40.7 35.0 - 45.0 % [facility] MCV 89.1 80.0 - 100.0 fL [facility] MCH 29.1 27.0 - 33.0 pg [facility] MCHC 32.7 32.0 - 36.0 g/dL [facility] Comment: For adults, a slight decrease in the calculated MCHC value (in the range of 30 to 32 g/dL) is most likely not clinically significant; however, it should be interpreted with caution in correlation with other red cell parameters and the patient's clinical condition. RDW 13.1 11.0 - 15.0 % [facility] PLATELET COUNT 222 140 - 400 Thousand/u L [facility] MPV 9.7 7.5 - 12.5 fL [facility] ABSOLUTE NEUTROPHILS 3,280 1,500 - 7,800 cells/uL [facility] ABSOLUTE LYMPHOCYTES 1,882 850 - 3,900 cells/uL [facility] ABSOLUTE MONOCYTES 389 200 - 950 cells/uL [facility] ABSOLUTE EOSINOPHILS 301 15 - 500 cells/uL [facility] ABSOLUTE BASOPHILS 47 0 - 200 cells/uL [facility] NEUTROPHILS 55.6 % [facility] LYMPHOCYTES 31.9 % [facility] MONOCYTES 6.6 % [facility] EOSINOPHILS 5.1 % [facility] BASOPHILS 0.8 % [facility] Blood Venous blood specimen / Unknown 06/11/2024 10:59 AM EDT 06/11/2024 10:59 AM EDT Narrative [facility] - 06/12/2024 9:21 AM EDT FASTING:YES FASTING: YES Resulting Agency Comment Performing Organization Information Site ID: QPT Name: [facility] Address: [address] [place] [phone] Director: Joe Hickey MD us Shaw Francois MD LAB BLOOD ORDERABLES Final Res ult [facility] * TSH (06/11/2024 10:59 AM EDT) TSH 0.83 0.40 - 4.50 mIU/L [facility] Blood Venous blood specimen / Unknown 06/11/2024 10:59 AM EDT 06/11/2024 10:59 AM EDT Narrative [facility] - 06/12/2024 9:21 AM EDT FASTING:YES FASTING: YES Resulting Agency Comment Performing Organization Information Site ID: QPT Name: [facility] Address: [address] [place] [address], [address] [place] [address] Director: Joe Hickey MD Shaw Francois MD LAB BLOOD ORDERABLES Final Res ult Performing Organization Address [facility] de Phone Number [facility] * T4, free (06/11/2024 10:59 AM EDT) T4, FREE 1.8 0.8 - 1.8 ng/dL [facility] Blood Venous blood specimen / Unknown 06/11/2024 10:59 AM EDT 06/11/2024 10:59 AM EDT Narrative [facility] - 06/12/2024 9:21 AM EDT FASTING:YES FASTING: YES Resulting Agency Comment Performing Organization Information Site ID: QPT Name: [facility] Address: [address] [place] [address], [address] [place], [place] [id number] Director: Joe Hickey MD Shaw Francois MD LAB BLOOD ORDERABLES Final Res ult Performing Organization Address [facility] de Phone Number [facility] * (ABNORMAL) Lipid panel (06/11/2024 10:59 AM EDT) CHOLESTEROL, TOTAL 193 <200 mg/dL [facility] HDL CHOLESTEROL 47(L) > OR = 50 mg/dL [facility] TRIGLYCERIDES 130 <150 mg/dL [facility] LDL-CHOLESTEROL 121(H) mg/dL (calc) [facility] Comment: Reference range: <100 Desirable range <100 mg/dL for primary prevention; <70 mg/dL for patients with CHD or diabetic patients with > or = 2 CHD risk factors. LDL-C is now calculated using the Fredis calculation, which is a validated novel method providing better accuracy than the Friedewald equation in the estimation of LDL-C. Daryl LEGER et al. TONG. 2013;310(19): 3574-0627 (http://education.[facility].com/faq/BRZ525) CHOL/HDLC RATIO 4.1 <5.0 (calc) [facility] NON HDL CHOLESTEROL 146(H) <130 mg/dL (calc) [facility] Comment: For patients with diabetes plus 1 major ASCVD risk factor, treating to a non-HDL-C goal of <100 mg/dL (LDL-C of <70 mg/dL) is considered a therapeutic option. Blood Venous blood specimen / Unknown 06/11/2024 10:59 AM EDT 06/11/2024 10:59 AM EDT Narrative [facility] - 06/12/2024 9:21 AM EDT FASTING:YES FASTING: YES Resulting Agency Comment Performing Organization Information Site ID: QPT Name: [facility] Address: [address] [place] [address], [address] [place] [phone] Director: Joe Hickey MD us Shaw Francois MD LAB BLOOD ORDERABLES Final Res ult [facility] * Comprehensive metabolic panel (06/11/2024 10:59 AM EDT) Pathologist [facility] Glucose 93 65 - 99 mg/dL [facility] Comment: Fasting reference interval BUN 18 7 - 25 mg/dL [facility] Creatinine 0.68 0.60 - 0.95 mg/dL [facility] EGFR 88 > OR = 60 mL/min/1. 73m2 [facility] BUN/CREATININE RATIO SEE NOTE: 6 - 22 (calc) [facility] Comment: Not Reported: BUN and Creatinine are within reference range. Sodium 141 135 - 146 mmol/L [facility] Potassium, Bld 4.1 3.5 - 5.3 mmol/L [facility] Chloride 108 98 - 110 mmol/L [facility] Carbon Dioxide 24 20 - 32 mmol/L [facility] Calcium 9.1 8.6 - 10.4 mg/dL [facility] PROTEIN, TOTAL 6.4 6.1 - 8.1 g/dL [facility] ALBUMIN 4.2 3.6 - 5.1 g/dL [facility] GLOBULIN 2.2 1.9 - 3.7 g/dL (calc) [facility] ALBUMIN/GLOBULIN RATIO 1.9 1.0 - 2.5 (calc) [facility] BILIRUBIN, TOTAL 0.8 0.2 - 1.2 mg/dL [facility] ALKALINE PHOSPHATASE 58 37 - 153 U/L [facility] AST 14 10 - 35 U/L [facility] ALT 10 6 - 29 U/L [facility] Blood Venous blood specimen / Unknown 06/11/2024 10:59 AM EDT 06/11/2024 10:59 AM EDT Narrative [facility] - 06/12/2024 9:21 AM EDT FASTING:YES FASTING: YES Resulting Agency Comment Performing Organization Information Site ID: QPT Name: [facility] Address: [address] [place] [address], [address] [place] [phone] Director: Joe Hickey MD Shaw Francois MD LAB BLOOD ORDERABLES Final Res ult [facility] * XR hip left 2 or 3 views (05/10/2024 11:27 AM EDT) Anatomical Region Laterality Modality Lower Extremities, Hip Left Radiograp hic Imaging 05/10/2024 11:2 7 AM EDT Narrative 05/10/2024 11:29 [place] [address] XRay Report Signed Patient: NADIA CHIN MR#: [id number] : 1945 Acct:[id number] Age/Sex: 78 / F ADM Date: 05/10/24 Loc: EC Attending Dr: Antony Enciso M.D. Ordering Physician: Antony Enciso M.D. Date of Service: 05/10/24 Procedure(s): XR hip LT 2V w/ pelvis Accession Number(s): [id number] cc: SHAW FRANCOIS ; Antony Enciso M.D. [address] [address] Patient Name: NADIA CHIN MRN: [id number] date: 1945 Sex: F Assigned Patient Location: Current Patient Location: Accession/Order Number: [id number] Exam Date: 05/10/2024 11:22 Report Date: 05/10/2024 11:27 At the request of: ANTONY ENCISO MD Procedure: XR hip LT 2V w/ pelvis LEFT HIP WITH AP PELVIS - 3 views COMPARISON: 02/21/2024 CLINICAL DATA: Follow up hip replacement. Weight-bearing AP view of the pelvis as well as AP and frog-lateral views of the left hip were obtained. There is osteopenia. A left hip prosthesis is again visualized. The hardware appears intact and in appropriate position. No developing fracture or dislocation is identified. The right hip joint space is maintained. There is sclerosis at the SI joints and mild degenerative change at the imaged lumbosacral junction. No soft tissue abnormalities are present. XR/XR hip LT 2V w/ pelvis IMPRESSION: STABLE LEFT HIP PROSTHESIS. OSTEOPENIA. NO ACUTE BONY FINDINGS. Impression dictated by: Jennifer Jon M.D.05/10/2024 11:27 AM Dictation Location: [place] [address] Electronically authenticated by: [id number] Y Date: 05/10/2024 11:27 Dictated By: Jennifer Jon M.D. Signed By: 05/10/24 1129 DD/ 1127 TD/TT: Solid Waste Engineer: Procedure Note Radiology, Radiologist, MD - 05/10/2024 [place] [address] XRay Report Signed Patient: NADIA CHIN MMR#: [id number] : 1945cct:[id number] Age/Sex: 78 / FADM Date: 05/10/24 Loc: Attending Dr: Antony Enciso M.D. Ordering Physician: Antony Enciso M.D. Date of Service: 05/10/24 Procedure(s): XR hip LT 2V w/ pelvis Accession Number(s): [id number] cc: SHAW FRANCOIS ; Antony Enciso M.D. [place] [id number] Patient Name: NADIA CHIN MRN: [id number] date: 1945 Sex: F Assigned Patient Location: Current Patient Location: Accession/Order Number: [id number] Exam Date: 05/10/2024 11:22 Report Date: 05/10/2024 11:27 At the request of: ANTONY ENCISO MD Procedure: XR hip LT 2V w/ pelvis LEFT HIP WITH AP PELVIS - 3 views COMPARISON: 02/21/2024 CLINICAL DATA: Follow up hip replacement. Weight-bearing AP view of the pelvis as well as AP and frog-lateral viewsof the left hip were obtained. There is osteopenia. A left hip prosthesisis again visualized. The hardware appears intact and in appropriateposition. No developing fracture or dislocation is identified. The right hip joint space is maintained. There is sclerosis at the SI joints and mild degenerative change at the imaged lumbosacral junction. No soft tissue abnormalities are present. XR/XR hip LT 2V w/ pelvis IMPRESSION: STABLE LEFT HIP PROSTHESIS. OSTEOPENIA. NO ACUTE BONY FINDINGS. Impression dictated by: Jennifer Jon M.D.05/10/2024 11:27 AM Dictation Location: [place] [address] Electronically authenticated by: [id number] Y Date: 1:27 Dictated By: Jennifer Jon M.D. Signed By:05/10/24 1129 DD/ 1127 TD/TT: Solid Waste Engineer: Generic External Data Provider IMG XR PROCEDURES Final Result from Last 3 Months Insurance [employer] Care Teams Conference Coordinator Relationship Specialty Start Date End Date Shaw Francois MD [address] [facility] [address] [place] [address] PCP - General Internal Medicine 07/23/22
--- OUTSIDE RECORDS SUMMARY | 2024-07-20 10:33 | XMS_ITS | Encounter Summary ---
Author Organization [facility] Address [address] [place] [address] Care Team Providers Care Smoking Pipe Driller And Threader Name Role Phone Shaw Francois MD Primary Care Provider [phone] Encounter Details Date Type Department Care Team (Late st Contact Info) Description 07/13/2024 Abstract [facility] [address] [facility] [address] [place] [id number] Shaw Francois MD [address] [facility] [address] [place], [place] [id number] Social History Tobacco Use Types Packs/Day Years [...] week 10/09/2022 How often do you attend faith or roman catholic serv ices? Never 10/09/2022 Do you belong to any clubs o r organizations such as faith groups, unions, fraternal or athletic groups, or [...] Recorded Patient Health Questionnaire-2 Score 0 06/11/2024 [facility] of Occupat ional Health - Occupational [...] place to sleep or slept in a nursing home (including now)? No 10/09/2022 Comments Unknown Sex [...] AM EDT Procedure Visit [facility] [address] [place] [address] Roge Rodríguez, DPM [address] [place], [place] [id number] documented as of this encounter Visit Diagnoses Not on filedocumented in this encounter Care Teams Smoking Pipe Driller And Threader Relationship Specialty Start Date End Date Shaw Francois MD [address] [facility] [address] [place] [address] PCP - General Internal Medicine 07/23/22 documented as of this encounter
--- OUTSIDE RECORDS SUMMARY | 2024-07-20 10:33 | XMS_ITS | Encounter Summary ---
Author Organization [facility] Address [address] [place] [address] Care Team Providers Care Slasher Hand Name Role Phone Shaw Francois MD Primary Care Provider [phone] Encounter Details Date Type Department Care Team (Late st Contact Info) Description 05/17/2024 Abstract [facility] [address] [facility] [address] [place] [phone] Shaw Francois MD [address] [facility] [address] [place], [place] [phone] Social History Tobacco Use Types Packs/Day Years [...] How often do you attend mosque or temple serv ices? Never 10/09/2022 Do [...] Recorded Patient Health Questionnaire-2 Score 0 12/16/2022 [facility] Occupat ional Health [...] AM EDT Procedure Visit [facility] [address] [place] [address] Roge Rodríguez, DPM [address] [place], [place] [phone] documented as of this encounter Visit Diagnoses Not on filedocumented in this encounter Care Teams Slasher Hand Relationship Specialty Start Date End Date Shwa Francois MD [address] [facility] [address] [place] [address] PCP - General Internal Medicine 07/23/22 documented as of this encounter
--- OUTSIDE RECORDS SUMMARY | 2024-07-20 10:33 | XMS_ITS | Encounter Summary ---
Author Organization [facility] Address [address] [place] [address] Care Team Providers Care Vp Home Health Name Role Phone Shaw Francois MD Primary Care Provider [phone] Shaw Francois MD Unavailable [phone] Encounter Details Date Type Department Care Team (Late st Contact Info) Description 09/22/2023 Abstract [facility] [address] [facility] 110 [place] [phone] Shaw Francois MD 112 [facility] 110 [place] [address] Social History Tobacco Use Types [...] week 10/09/2022 How often do you attend quaker or congregation serv ices? Never 10/09/2022 Do you belong to any clubs o r organizations such as quaker groups, unions, fraternal or athletic groups, or [...] Recorded Patient Health Questionnaire-2 Score 0 12/16/2022 [facility] - Occupational Stress Questionnaire Answer Date [...] AM EDT Procedure Visit [facility] [address] [facility] [place] [phone] Roge Rodríguez, DPM [address] [place] [address] documented as of this encounter Visit Diagnoses Not on filedocumented in this encounter Care Teams Vp Home Health Relationship Specialty Start Date End Date Shaw Francois MD [address] [facility] [address] [place] [address] PCP - General Internal Medicine 07/23/22 Shaw Francois MD [address] [facility] [address] [place] [address] PCP - Helena PETERS 02/10/23 02/10/24 documented as of this encounter
--- OUTSIDE RECORDS SUMMARY | 2024-07-20 10:33 | XMS_ITS | Encounter Summary ---
Author Organization [facility] Address [address] [place] [address] Care Team Providers Care Wrapper And Preserver Name Role Phone Shaw Francois MD Primary Care Provider [phone] Shaw Francois MD Unavailable [phone] Encounter Details Date Type Department Care Team (Late st Contact Info) Description 09/02/2023 Abstract [facility] [address] [facility] 110 [place] [address] Shaw Francois MD 112 [facility] 110 [place] [address] Social History Tobacco Use Types [...] week 10/09/2022 How often do you attend confucianism or shinto serv ices? Never 10/09/2022 Do you belong to any clubs o r organizations such as confucianism groups, unions, fraternal or athletic groups, or [...] Recorded Patient Health Questionnaire-2 Score 0 12/16/2022 [facility] - Occupational Stress Questionnaire Answer Date [...] AM EDT Procedure Visit [facility] [address] [facility] [place] [address] Roge Rodríguez, DPM [address] [place] [address] documented as of this encounter Visit Diagnoses Not on filedocumented in this encounter Care Teams Wrapper And Preserver Relationship Specialty Start Date End Date Shaw Francois MD [address] [facility] [address] [place] [address] PCP - General Internal Medicine 07/23/22 Shaw Francois MD [address] [facility] [address] [place] [address] PCP - Helena PETERS 02/10/23 02/10/24 documented as of this encounter
--- OUTSIDE RECORDS SUMMARY | 2024-07-20 10:33 | XMS_ITS | Encounter Summary ---
Author Organization [facility] Address [address] [place] [address] Care Team Providers Care Hooker Inspector Name Role Phone Shaw Francois MD Primary Care Provider [phone] Shaw Francois MD Unavailable [phone] Encounter Details Date Type Department Care Team (Late st Contact Info) Description 09/02/2023 Abstract [facility] [address] [facility] 110 [place] [address] Shaw Francois MD 112 [facility] 110 [place] [address] Social History Tobacco Use Types [...] week 10/09/2022 How often do you attend orthodox or zoroastrianism serv ices? Never 10/09/2022 Do you belong to any clubs o r organizations such as orthodox groups, unions, fraternal or athletic groups, or [...] Patient Health Questionnaire-2 Score 0 12/16/2022 [facility] - Occupational Stress Questionnaire Answer [...] place to sleep or slept in a assisted (including now)? No 10/09/2022 Comments Unknown Sex [...] AM EDT Procedure Visit [facility] [address] [facility] [place] [address] Roge Rodríguez, DPM 1900 [place] [address] documented as of this encounter Visit Diagnoses Not on filedocumented in this encounter Care Teams Hooker Inspector Relationship Specialty Start Date End Date Shaw Francois MD [address] [place] [address] PCP - General Internal Medicine 07/23/22 Shaw Francois MD [address] [facility] [address] [place] [address] PCP - Helena PETERS 02/10/23 02/10/24 documented as of this encounter
--- OUTSIDE RECORDS SUMMARY | 2024-07-20 10:33 | XMS_ITS | Encounter Summary ---
Author Organization [facility] Address [address] [place] [address] Care Team Providers Care Pony Worker Name Role Phone Shaw Francois MD Primary Care Provider [phone] Encounter Details Date Type Department Care Team (Late st Contact Info) Description 06/15/2024 Abstract [facility] [address] [facility] 110 [place] [address] Shaw Francois MD [address] [facility] 110 [place], [place] [id number] Social History Tobacco Use Types Packs/Day Years [...] week 10/09/2022 How often do you attend hindu or jew serv ices? Never 10/09/2022 Do you belong to any clubs o r organizations such as hindu groups, unions, fraternal or athletic groups, or [...] Recorded Patient Health Questionnaire-2 Score 0 06/11/2024 [facility]at ional Health - [...] AM EDT Procedure Visit [facility] [address] [place] [address] Roge Rodríguez, DPM [address] [place], [place] [address] documented as of this encounter Visit Diagnoses Not on filedocumented in this encounter Care Teams Pony Worker Relationship Specialty Start Date End Date Shaw Francois MD [address] [facility] [address] [place] [address] PCP - General Internal Medicine 07/23/22 documented as of this encounter
--- OUTSIDE RECORDS SUMMARY | 2024-07-20 10:33 | XMS_ITS | Encounter Summary ---
Author Organization [facility] Address [address] [place] [address] Care Team Providers Care Line Construction Supervisor Name Role Phone Shaw Francois MD Primary Care Provider [phone] Shaw Francois MD Unavailable [phone] Encounter Details Date Type Department Care Team (Late st Contact Info) Description 01/29/2024 Abstract [facility] [address] [facility] 110 [place] [address] Shaw Francois MD 112 [facility] 110 [place] [address] Social History Tobacco Use Types [...] How often do you attend confucianism or denominational serv ices? Never 10/09/2022 Do you belong [...] Patient Health Questionnaire-2 Score 0 12/16/2022 [facility] - Occupational Stress [...] AM EDT Procedure Visit [facility] [address] [facility] [place] [address] Roge Rodríguez, DPM [address] [place] [address] documented as of this encounter Visit Diagnoses Not on filedocumented in this encounter Care Teams Line Construction Supervisor Relationship Specialty Start Date End Date Shaw Francois MD [address] [place] [address] PCP - General Internal Medicine 07/23/22 Shaw Francois MD [address] [facility] [address] [place] [address] PCP - Helena PETERS 02/10/23 02/10/24 documented as of this encounter
--- OUTSIDE RECORDS SUMMARY | 2024-07-20 10:33 | XMS_ITS | Encounter Summary ---
Author Organization [facility] Address [address] [place] [address] Care Team Providers Care Solar Installation Technician Name Role Phone Shaw Francois MD Primary Care Provider Encounter Details Date Type Department Care Team (Late st Contact Info) Description 06/29/2024 Abstract [facility] [address] [facility] 110 [place] [address] Shaw Francois MD [address] [facility] 110 [place], [place] [address] Social History Tobacco Use Types Packs/Day Years [...] How often do you attend presybeterian or yarsani serv ices? Never 10/09/2022 Do you belong [...] Recorded Patient Health Questionnaire-2 Score 0 06/11/2024 [facility] of Occupat ional Health [...] AM EDT Procedure Visit [facility] [address] [place] [address] Roge Rodríguez, DPM 1900 [place], [place] [address] documented as of this encounter Visit Diagnoses Not on filedocumented in this encounter Care Teams Solar Installation Technician Relationship Specialty Start Date End Date Shaw Francois MD [address] [facility] [address] [place] [address] PCP - General Internal Medicine 07/23/22 documented as of this encounter
--- OUTSIDE RECORDS SUMMARY | 2024-07-20 10:33 | XMS_ITS | Encounter Summary ---
Author Organization [facility] Address [address] [place] [address] Care Team Providers Care Clinical Research Manager Name Role Phone Shaw Francois MD Primary Care Provider [phone] Shaw Francois MD Unavailable [phone] Encounter Details Date Type Department Care Team (Late st Contact Info) Description 01/21/2024 Abstract [facility] [address] [facility] 110 [place] [phone] Shaw Francois MD 112 [facility] 110 [place] [address] Social History Tobacco Use Types [...] How often do you attend cheondoism or jew serv ices? Never 10/09/2022 Do [...] Recorded Patient Health Questionnaire-2 Score 0 12/16/2022 [facility] - Occupational Stress Questionnaire Answer [...] AM EDT Procedure Visit [facility] [address] [facility] [place] [address] Roge Rodríguez, DPM [address] [place] [address] documented as of this encounter Visit Diagnoses Not on filedocumented in this encounter Care Teams Clinical Research Manager Relationship Specialty Start Date End Date Shaw Francois MD [address] [facility] [place] [address] PCP - General Internal Medicine 07/23/22 Shaw Francois MD [address] [facility] [address] [place] [address] PCP - Helena PETERS 02/10/23 02/10/24 documented as of this encounter
--- OUTSIDE RECORDS SUMMARY | 2024-07-20 10:33 | XMS_ITS | Encounter Summary ---
Author Organization [facility] Address [address] [place] [address] Care Team Providers Care Engine Manager Name Role Phone Shaw Francois MD Primary Care Provider [phone] Shaw Francois MD Unavailable [phone] Encounter Details Date Type Department Care Team (Late st Contact Info) Description 08/25/2023 Abstract [facility] [address] [facility] 110 [place] [address] Shaw Francois MD 112 [facility] 110 [place] [address] Social History Tobacco Use Types [...] How often do you attend confucianism or taoist serv ices? Never 10/09/2022 Do you belong [...] Score 0 12/16/2022 [facility] - Occupational Stress Questionnaire Answer [...] AM EDT Procedure Visit [facility] [address] [place] [address] Roge Rodríguez, DPM [address] [place] [address] documented as of this encounter Visit Diagnoses Not on filedocumented in this encounter Care Teams Engine Manager Relationship Specialty Start Date End Date Shaw Francois MD [address] [place] [address] PCP - General Internal Medicine 07/23/22 Shaw Francois MD [address] [facility] [address] [place] [address] PCP - Helena PETERS 02/10/23 02/10/24 documented as of this encounter
--- OUTSIDE RECORDS SUMMARY | 2024-07-20 10:33 | XMS_ITS | Clinical Summary ---
Author Organization [employer] [facility] tem Address [id number] [address] [place] [address] Care Team Providers Care Support Service Tech Name Role Phone Shaw Francois MD Primary Care Provider [phone] Allergies Active Allergy Reactions Criticality Noted Date Comments Sulfa (Sulfonamide Antibiotics) Facial Swelling High 05/08/2017 Unknown reaction Medications sertraline (ZOLOFT) 50 mg tablet Take 50 mg by mouth daily. Active raNITIdine (ZANTAC) 150 mg tablet Take 150 mg by mouth nightly. Active losartan (COZAAR) 25 mg tablet Take 25 mg by mouth daily. Active cholecalciferol , vitamin D3, 1,000 unit capsule Take 1,000 Units by mouth daily. Active naproxen sodium (ALEVE) 220 mg tablet Take 220 mg by mouth 2 (two) times a day with meals. Active multivitamin-mi nerals-lutein (CENTRUM SILVER) tablet Take 1 tablet by mouth. 04/17/2011 Active levothyroxine (SYNTHROID, LEVOTHROID) 100 MCG tablet TAKE 1 TABLET BY MOUTH ONCE DAILY IN THE MORNING ON AN EMPTY STOMACH FOR 30 DAYS 03/13/2019 Active Active Problems Problem Noted Date Diagnosed Date Cervical spondylosis without myelopathy 11/25/19 18 Overview (11/24/2017): Added automatically from request for surgery [id number] Osteopenia 07/27/2013 Breast cancer, right breast 04/19/2011 Family History Relation Name Status Comments Father Mother Social History Tobacco Use Types Packs/Day Years Used Date Smoking Tobacco: Never Smokeless Tobacco: Never Alcohol Use Standard Drinks/Week Comments No 0 (1 standard drink = 0.6 oz pur e alcohol) Childcare Answer Date Recorded Childcare Unknown 07/22/2018 Employment Answer Date Recorded Employment Unknown 07/22/2018 Purpose - Life Answer Date Recorded Purpose and direction in life Unknown Comments No Sex and Gender Information Value Date Recorded Sex Assigned at Not on file Legal Sex Female 11:27 AM EDT Gender Identity Not on file Sexual Orientation Not on file Last Filed Vital Signs Vital Sign Reading Time Taken Comments Blood Pressure 129/71 04/16/2019 11:45 AM EST Pulse 54 04/16/2019 11:45 AM EST Temperature 36.4 C (97.6 F) 04/16/2019 11:01 AM EST Respiratory Rate 18 04/16/2019 11:45 AM EST Oxygen Saturation 95% 04/16/2019 11:45 AM EST Inhaled Oxygen Concentration - - Weight 79.6 kg (175 lb 6.4 oz) 02/19/2018 3:02 P M EST Height 170.2 cm (5' 7 ) 12/16/2017 12:49 PM EST Body Mass Index 27.47 12/16/2017 12:49 PM EST Plan of Treatment Health Maintenance Due Date Last Done Comments Depression Screening 1957 Tobacco Screening 1957 DTaP,Tdap and Td Vaccines (1 - Tdap) 11/09/1962 Zoster (Shingles) Vaccine (1 of 2) 11/09/1962 Fall Risk Screening 11/09/2008 Influenza Vaccine 10/11/2024 Medical Devices Implanted Type Area Screen Printing Machine Operator Helper Device Identifier Shelf Expiration Date Model / Serial / Lot Lens 22.0 Diopter - [id number] - [id number] Implanted:Qty: 1 on 05/13/2017 by Susana Boyd MD at [facility] Lens Right: Eye [employer] 01/09/2022 [id number] D / [id number] / NA Lens 21.0 Diopter - [id number] - [id number] Implanted:Qty: 1 on 05/27/2017 by Susana Boyd MD at [facility] Lens Left: Eye [employer] 01/09/2022 [id number] D / [id number] / N/A Insurance MEDICARE COMMERCIAL Care Teams Support Service Tech Relationship Specialty Start Date End Date Shaw Francois MD 112 [facility] 110 [place] [address] PCP - General Internal Medicine 05/13/17
--- OUTSIDE RECORDS SUMMARY | 2024-07-20 10:33 | XMS_ITS | Encounter Summary ---
Author Organization [facility] Address [address] [place] [address] Care Team Providers Care Industrial Technology Education Teacher Name Role Phone Shaw Francois MD Primary Care Provider [phone] Shaw Francois MD Unavailable [phone] Encounter Details Date Type Department Care Team (Late st Contact Info) Description 07/21/2023 Abstract [facility] [address] [facility] 110 [place] [address] Shaw Francois MD 112 [facility] 110 [place] [address] Social History Tobacco Use Types [...] week 10/09/2022 How often do you attend restoration or scientology serv ices? Never 10/09/2022 Do you belong to any clubs o r organizations such as restoration groups, unions, fraternal or athletic groups, or [...] Patient Health Questionnaire-2 Score 0 12/16/2022 [facility] - Occupational Stress Questionnaire Answer Date [...] place to sleep or slept in a long term (including now)? No 10/09/2022 Comments Unknown Sex [...] AM EDT Procedure Visit [facility] [address] [facility] [place] [address] Roge Rodríguez, DPM [address] [place] [address] documented as of this encounter Visit Diagnoses Not on filedocumented in this encounter Care Teams Industrial Technology Education Teacher Relationship Specialty Start Date End Date Shaw Francois MD [address] [place] [address] PCP - General Internal Medicine 07/23/22 Shaw Francois MD [address] [facility] [place] [address] PCP - Helena PETERS 02/10/23 02/10/24 documented as of this encounter
--- OUTSIDE RECORDS SUMMARY | 2024-07-20 10:33 | XMS_ITS | Encounter Summary ---
Author Organization [facility] Address [address] [place] [address] Care Team Providers Care Crisis Counselor Name Role Phone Shaw Francois MD Primary Care Provider [phone] Shaw Francois MD Unavailable [phone] Encounter Details Date Type Department Care Team (Late st Contact Info) Description 11/26/2023 Abstract [facility] [address] [facility] 110 [place] [address] Shaw Francois MD 112 [facility] 110 [place] [address] Social History Tobacco Use Types [...] week 10/09/2022 How often do you attend evangelical or pentecostal serv ices? Never 10/09/2022 Do you belong to any clubs o r organizations such as evangelical groups, unions, fraternal or athletic groups, or [...] Recorded Patient Health Questionnaire-2 Score 0 12/16/2022 [facility] - Occupational Stress Questionnaire Answer [...] AM EDT Procedure Visit [facility] [address] [facility] [place] [address] Roge Rodríguez, DPM [address] [place] [address] documented as of this encounter Visit Diagnoses Not on filedocumented in this encounter Care Teams Crisis Counselor Relationship Specialty Start Date End Date Shaw Francois MD [address] [place] [address] PCP - General Internal Medicine 07/23/22 Shaw Francois MD [address] [facility] [place] [address] PCP - Helena PETERS 02/10/23 02/10/24 documented as of this encounter
--- OUTSIDE RECORDS SUMMARY | 2024-07-20 10:33 | XMS_ITS | Encounter Summary ---
Author Organization [facility] Address [address] [place] [address] Care Team Providers Care Assistant Kitchen Manager Name Role Phone Shaw Francois MD Primary Care Provider [phone] Encounter Details Date Type Department Care Team (Latest Contact Info) Description 07/16/2024 Travel Social History Tobacco Use Types Packs/Day Years [...] week 10/09/2022 How often do you attend episcopalian or church serv ices? Never 10/09/2022 Do you belong to any clubs o r organizations such as episcopalian groups, unions, fraternal or athletic groups, or [...] Recorded Patient Health Questionnaire-2 Score 0 06/11/2024 [facility] Occupat ional Health - [...] AM EDT Procedure Visit [facility] [address] [place] [address] Roge Rodríguez, DPM 1900 [place], [place] [address] documented as of this encounter Visit Diagnoses Not on filedocumented in this encounter Care Teams Assistant Kitchen Manager Relationship Specialty Start Date End Date Shaw Francois MD [address] [facility] 110 [place] [address] PCP - General Internal Medicine 07/23/22 documented as of this encounter
--- OUTSIDE RECORDS SUMMARY | 2024-07-20 10:33 | XMS_ITS | Encounter Summary ---
Author Organization [facility] Address [address] [place] [address] Care Team Providers Care Certified Endoscopy Technician Name Role Phone Shaw Francois MD Primary Care Provider [phone] Shaw Francois MD Unavailable Encounter Details Date Type Department Care Team (Late st Contact Info) Description 12/26/2023 Abstract [facility] [address] [facility] 110 [place] [address] Shaw Francois MD 112 [facility] 110 [place] [address] Social History Tobacco Use Types [...] week 10/09/2022 How often do you attend religion or temple serv ices? Never 10/09/2022 Do you belong to any clubs o r organizations such as religion groups, unions, fraternal or athletic groups, or [...] Recorded Patient Health Questionnaire-2 Score 0 12/16/2022 [facility] - Occupational Stress Questionnaire Answer Date [...] AM EDT Procedure Visit [facility] [address] [facility] [place] [address] Roge Rodríguez, DPM [address] [place] [address] documented as of this encounter Visit Diagnoses Not on filedocumented in this encounter Care Teams Certified Endoscopy Technician Relationship Specialty Start Date End Date Shaw Francois MD [address] [place] [address] PCP - General Internal Medicine 07/23/22 Shaw Francois MD [address] [facility] [place] [address] PCP - Helena PETERS 02/10/23 02/10/24 documented as of this encounter
--- OUTSIDE RECORDS SUMMARY | 2024-07-20 10:33 | XMS_ITS | Encounter Summary ---
Author Organization [facility] Address [address] [place] [address] Care Team Providers Care Machinist Mechanic Name Role Phone Shaw Franocis MD Primary Care Provider [phone] Shaw Francois MD Unavailable [phone] Encounter Details Date Type Department Care Team (Late st Contact Info) Description 08/25/2023 Abstract [facility] [address] [facility] 110 [place] [address] Shaw Francois MD 112 [facility] 110 [place] [address] Social History Tobacco Use Types [...] week 10/09/2022 How often do you attend jain or orthodox serv ices? Never 10/09/2022 Do you belong to any clubs o r organizations such as jain groups, unions, fraternal or athletic groups, or [...] Score 0 12/16/2022 [facility] - Occupational Stress Questionnaire Answer Date [...] place to sleep or slept in a half-way (including now)? No 10/09/2022 Comments Unknown Sex [...] PODIATRY [address] [facility] [place] [place] [address] Roge Rodríguez, DPM [address] [place] [address] documented as of this encounter Visit Diagnoses Not on filedocumented in this encounter Care Teams Machinist Mechanic Relationship Specialty Start Date End Date Shaw Francois MD [address] [place] [address] PCP - General Internal Medicine 07/23/22 Shaw Francois MD [address] [facility] [place] [address] PCP - Helena PETERS 02/10/23 02/10/24 documented as of this encounter
--- OUTSIDE RECORDS SUMMARY | 2024-07-20 10:33 | XMS_ITS | Encounter Summary ---
Author Organization [facility] Address [address] [place] [address] Care Team Providers Care Outside Production Inspector Name Role Phone Dominic Francois MD Primary Care Provider [phone] Dominic Francois MD Unavailable [phone] Encounter Details Date Type Department Care Team (Late st Contact Info) Description 07/09/2023 Clinisync Result Encounter [facility] External Department Unsolicited Provider, Generic External Data Social History Tobacco Use Types Packs/Day Years [...] How often do you attend methodist or presybeterian serv ices? Never 10/09/2022 Do you belong [...] Recorded Patient Health Questionnaire-2 Score 0 12/16/2022 [facility] [place] of Occupat ional Health - Occupational Stress [...] AM EDT Procedure Visit [facility] [address] [place] [address] Roge Rodríguez, DPPerri [address] [place] [address] documented as of this encounter Procedures Procedure Name Priority Date/Time Associated Diagnosis Comments BI MAMMOGRAM SCREENING TOMOSYNTHESIS LEFT 07/09/2023 3:00 PM EDT documented in this encounter Results * Left screening mammogram with tomosynthesis (07/09/2023 3:00 PM EDT) Anatomical Region Laterality Modality Breast Left Mammography 07/09/2023 3:00 PM EDT Narrative 07/09/2023 3:01 PM EDT The [address] [address] Mammography Report Signed Patient: Nadia Chin MR#: [id number] : 1945 Acct:[id number] Age/Sex: 77 / F ADM Date: 07/09/23 Loc: MAMMO Attending Dr: JACKIE BELTRÁN Ordering Physician: JACKIE BELTRÁN Results: Date of Service: 07/09/23 Follow Up: Procedure(s): MM tomosynthesis screening LT Accession Number(s): [id number] cc: JACKIE BELTRÁN ; FRANCOISDOMINIC Patient Name: NADIA CHIN MR#: [id number] : 1945 Exam Date: 07/09/2023 Ordering Doctor: DR. JACKIE BELTRÁN M.D. RADIOLOGY REPORT PROCEDURE: MM TOMOSYNTHESIS SCREENING LT COMPARISON: MG MAMM DX 3D LT CAD, 05/28/2021. MG MAMM SCREEN LT 3D CAD, 06/03/2022. INDICATIONS: Screening Calculator Name NCI Breast Cancer Risk Assessment Tool 5 Year Breast Cancer Risk n/a% Lifetime Breast Cancer Risk n/a% Personal Breast Cancer Yes, BREAST CA RT BREAST AGE65 Personal Ovarian Cancer No Treatments MASECTOMY RT BREAST Family Cancers Sister with breast cancer at age 58; Aunt-maternal with breast cancer at age 40. LOCATION: [facility] BREAST COMPOSITION: There are scattered areas of fibroglandular density. FINDINGS: DIAGNOSTIC CATEGORY 2--BENIGN FINDING. NO CHANGE FROM COMPARISON. Scattered benign-appearing calcifications are present. Scattered benign-appearing lymph nodes are present. RIGHT BREAST: No significant suspicious finding. LEFT BREAST: No significant suspicious finding. RECOMMENDATIONS: ROUTINE MAMMOGRAM AND CLINICAL EVALUATION IN 12 MONTHS. PLEASE NOTE: A NORMAL MAMMOGRAM DOES NOT EXCLUDE THE POSSIBILITY OF BREAST CANCER. A CLINICALLY SUSPICIOUS PALPABLE LUMP SHOULD BE BIOPSIED. Dictated by: Khoa Kennedy MD on 07/09/2023 at 14:57 Approved by: Khoa Kennedy MD on 07/09/2023 at 15:00 Dictated By: Khoa Kennedy M.D. Signed By: 07/09/23 1501 DD/ 1500 TD/TT: Ict Quality Assurance Engineer: Procedure Note Radiology, Radiologist, - 07/10/2023 [place] [address] Mammography Report Signed Patient: Nadia Chin MMR#: [id number] : 1945cct:[id number] Age/Sex: 77 / FADM Date: 07/09/23 Loc: MAMMO Attending Dr: JACKIE BELTRÁN Ordering Physician: JACKIE BELTRÁNResults: Date of Service: 07/09/23Follow Up: Procedure(s): MM tomosynthesis screening LT Accession Number(s): [id number] cc: JACKIE BELTRÁN ; DOMINIC FRANCOIS Patient Name: NADIA CHIN MR#: [id number] : 1945 Exam Date: 07/09/2023 Ordering Doctor: DR. JACKIE BELTRÁN M.D. RADIOLOGY REPORT PROCEDURE: MM TOMOSYNTHESIS SCREENING LT COMPARISON: MG MAMM DX 3D LT CAD, 05/28/2021. MG MAMM SCREEN LT 3DCAD, 06/03/2022. INDICATIONS: Screening Calculator Name NCI Breast Cancer Risk Assessment Tool 5 Year Breast Cancer Risk n/a% Lifetime Breast Cancer Risk n/a% Personal Breast Cancer Yes, BREAST CA RT BREAST AGE65 Personal Ovarian Cancer No Treatments MASECTOMY RT BREAST Family Cancers Sister with breast cancer at age 58; Aunt-maternal with breast cancer at age 40. LOCATION: [facility] BREAST COMPOSITION: There are scattered areas of fibroglandulardensity. FINDINGS: DIAGNOSTIC CATEGORY 2--BENIGN FINDING. NO CHANGE FROM COMPARISON. Scattered benign-appearing calcifications are present. Scattered benign-appearing lymph nodes are present. RIGHT BREAST: No significant suspicious finding. LEFT BREAST: No significant suspicious finding. RECOMMENDATIONS: ROUTINE MAMMOGRAM AND CLINICAL EVALUATION IN 12 MONTHS. PLEASE NOTE: A NORMAL MAMMOGRAM DOES NOT EXCLUDE THE POSSIBILITY OFBREAST CANCER. A CLINICALLY SUSPICIOUS PALPABLE LUMP SHOULD BE BIOPSIED. Dictated by: Khoa Kennedy MD on 07/09/2023 at 14:57 Approved by: Khao Kennedy MD on 07/09/2023 at 15:00 Dictated By: Khoa Kennedy M.D. Signed By:07/09/23 1501 DD/ 1500 TD/TT: Ict Quality Assurance Engineer: us Generic External Data Provider IMG BI PROCEDURES Final Result documented in this encounter Visit Diagnoses Not on filedocumented in this encounter Care Teams Outside Production Inspector Relationship Specialty Start Date End Date Dominic Francois MD [address] [facility] [address] [place] [address] PCP - General Internal Medicine 07/23/22 Dominic Francois MD [address] [facility] [address] [place] [address] PCP - Helena PETERS 02/10/23 02/10/24 documented as of this encounter
--- OUTSIDE RECORDS SUMMARY | 2024-07-20 10:33 | XMS_ITS | Encounter Summary ---
Author Organization [facility] Address [address] [place] [address] Care Team Providers Care Sack Sewer Machine Name Role Phone Shaw Francois MD Primary Care Provider [phone] Shaw Francois MD Unavailable [phone] Encounter Details Date Type Department Care Team (Late st Contact Info) Description 01/29/2024 Abstract [facility] [address] [facility] [address] [place] [phone] Shaw Francois MD 112 [facility] 110 [place] [address] Social History Tobacco Use Types [...] week 10/09/2022 How often do you attend worship or scientology serv ices? Never 10/09/2022 Do you belong to any clubs o r organizations such as worship groups, unions, fraternal or athletic groups, or [...] Recorded Patient Health Questionnaire-2 Score 0 12/16/2022 [facility] - Occupational Stress Questionnaire Answer Date Recorded [...] place to sleep or slept in a long-term (including now)? No 10/09/2022 Comments Unknown Sex [...] AM EDT Procedure Visit [facility] [address] [facility] [place] [phone] Roge Rodríguez, DPM [address] [place] [address] documented as of this encounter Visit Diagnoses Not on filedocumented in this encounter Care Teams Sack Sewer Machine Relationship Specialty Start Date End Date Shaw Francois MD [address] [place] [address] [place] [address] PCP - General Internal Medicine 07/23/22 Shaw Francois MD [address] [facility] [address] [place] [address] PCP - Helena PETERS 02/10/23 02/10/24 documented as of this encounter
--- OUTSIDE RECORDS SUMMARY | 2024-07-20 10:33 | XMS_ITS | Encounter Summary ---
Author Organization [facility] Address [address] [place] [address] Care Team Providers Care Strainer Tender Name Role Phone Shaw Francois MD Primary Care Provider [phone] Reason for Visit * Reason Onset Date Comments FYI 07/14/2024 Encounter Details Date Type Department Care Team (Late st Contact Info) Description 07/14/2024 Telephone [facility] [address] [facility] 110 [place] [address] Shaw Francois MD 112 [facility] 110 [place] [address] FY Social History Tobacco Use Types Packs/Day Years [...] week 10/09/2022 How often do you attend hinduism or zoroastrian serv ices? Never 10/09/2022 Do you belong to any clubs o r organizations such as hinduism groups, unions, fraternal or athletic groups, or [...] Recorded Patient Health Questionnaire-2 Score 0 06/11/2024 [facility] - Occupational Stress Questionnaire Answer [...] on file documented as of this encounter Miscellaneous Notes * Telephone Encounter - EUN Tillman - 07/14/2024 3:30 PM EDT Acknowledged. * Telephone Encounter - Halima Arias MA - 07/14/2024 10:07 AM EDT Hi, [facility] Nadia Almeida. Date of is [phone]. Just calling to notify. She had a fall on Friday and she was walking outside, tripped on concrete, shefell forward, and she hit her her right wrist and her right face around her eye. She is very Bruised, sore, she can move her wrist. He has range of motion. She is just had a so nothing severe in thatarm. It is a little swollen in the wrist area. Her right face is is very swollen, tender around forlike orbit area. It is bruised. She said she did not have any loss of consciousness, no Dizziness, no headaches, she is been icing. She asked her if she wanted x ray or anything, and she said no, andthen she does see Dr Rodriguez on Friday. Do you have any questions you can call back? It is [phone]. Thanks. documented in this encounter Plan of Treatment Upcoming Encounters Date Type Department Care Team (Late st Contact Info) Description 08/10/2024 10:15 AM EDT Procedure Visit [facility] [address] [place] [phone] Roge Rodríguez, DPM [address] [place] [address] documented as of this encounter Visit Diagnoses Not on filedocumented in this encounter Care Teams Strainer Tender Relationship Specialty Start Date End Date Shaw Francois MD [address] [facility] 110 [place] [address] PCP - General Internal Medicine 07/23/22 documented as of this encounter
--- OUTSIDE RECORDS SUMMARY | 2024-07-20 10:34 | XMS_ITS | Encounter Summary ---
Author Organization [facility] Address [address] [place] [address] Care Team Providers Care Size Painter Name Role Phone Shaw Francois MD Primary Care Provider [phone] Shaw Francois MD Unavailable [phone] Encounter Details Date Type Department Care Team (Late st Contact Info) Description 10/16/2023 Abstract [facility] [address] [facility] 110 [place] [phone] Shaw Francois MD 112 [facility] 110 [place] [address] Social History Tobacco Use Types [...] week 10/09/2022 How often do you attend restorationist or buddhism serv ices? Never 10/09/2022 Do you belong to any clubs o r organizations such as restorationist groups, unions, fraternal or athletic groups, or [...] Score 0 12/16/2022 [facility] - Occupational Stress Questionnaire Answer [...] AM EDT Procedure Visit [facility] [address] [facility] [place] [address] Roge Rodríguez, DPM [address] [place] [address] documented as of this encounter Visit Diagnoses Not on filedocumented in this encounter Care Teams Size Painter Relationship Specialty Start Date End Date Shaw Francois MD [address] [place] [address] [place] [address] PCP - General Internal Medicine 07/23/22 Shaw Francois MD [address] [facility] [address] [place] [address] PCP - Helena PETERS 02/10/23 02/10/24 documented as of this encounter
--- NOTE | 2024-07-20 10:55 | MM_ITS ---
Patient Name: ASHLYN CHIN MR#: [id number] : 1945 Exam Date: 07/20/2024 Ordering Doctor: DR DOMINIC HERBERT M.D. RADIOLOGY REPORT PROCEDURE: MM TOMOSYNTHESIS SCREENING LT COMPARISON: MM TOMOSYNTHESIS SCREENING LT, 07/09/2023. MG MAMM SCREEN LT 3D CAD, 06/03/2022. INDICATIONS: Screening Calculator Name NCI Breast Cancer Risk Assessment Tool 5 Year Breast Cancer Risk n/a% Lifetime Breast Cancer Risk n/a% Personal Breast Cancer Yes, BREAST CA RT BREAST AGE65 Personal Ovarian Cancer No Treatments MASECTOMY RT BREAST Family Cancers Sister with breast cancer at age 58; Aunt-maternal with breast cancer at age ~40. LOCATION: [facility] BREAST COMPOSITION: There are scattered areas of fibroglandular density. FINDINGS: DIAGNOSTIC CATEGORY 1--NEGATIVE. LEFT BREAST: No significant suspicious finding. RECOMMENDATIONS: ROUTINE MAMMOGRAM AND CLINICAL EVALUATION IN 12 MONTHS. PLEASE NOTE: A NORMAL MAMMOGRAM DOES NOT EXCLUDE THE POSSIBILITY OF BREAST CANCER. A CLINICALLY SUSPICIOUS PALPABLE LUMP SHOULD BE BIOPSIED. Dictated by: Vinnie Anand DO on 07/20/2024 at 15:40 Approved by: Vinnie Anand DO on 07/20/2024 at 15:41
== END 2024-07-20 10:30 | disposition home or self-care (01) ==
LOC: MAMMO 10:30
PROVIDERS: PCP Internal Medicine; Visit Provider Internal Medicine
DX: Z12.31 Encounter for screening mammogram for malignant neoplasm of breast (principal); Z80.3 Family history of malignant neoplasm of breast
CPT/HCPCS: 77063; 77067

== ENCOUNTER 2025-01-23 10:22 | Emergency (ER) | payer MEDICARE, SELFPAY ==
--- OUTSIDE RECORDS SUMMARY | 2024-08-30 04:00 | XMS_ITS ---
Author Organization [facility] Address [address] [place] [address] Care Team Providers Care Level Glass Vial Filler Name Role Phone Shaw Oconnor DO Primary Care Provider Unavail able Antony Shore Unavailable [phone] REASON FOR VISIT LEFT HIP RECHECK Encounters Encounter Location Date Provider Diagnosis [facility] [address] [place] [address] 08/30/2024 Antony Shore Plan Of Treatment No Information Progress Notes * ASHLYN CHIN MDOB:1945 (79 yo F)Acc No.[id number]:08/30/2024 Patient:?ASHLYN CHIN :?CRUZITO YostOB:1945???Age:78 Y ???Sex:FemaleDate:08/30/2024Phone:[phone]:[address] [place] [address]Pcp:Shaw Oconnor DO Subjective: * Chief Complaints: * 1 . LEFT HIP RECHECK. * Medical History: Objective: * Vitals: Assessment: Plan: * Treatment: Forms: * Images: * Electronic signature of Antony Shore MD on 01/23/2025 at 10:41 AM ESTSign off status: Pending * Provider: June Shore MD Date: 0 08/30/2024 Generated for Printing/Faxing/eTransmitting on:?01/23/2025 10:41 AM EST
--- OUTSIDE RECORDS SUMMARY | 2024-08-30 04:20 | XMS_ITS ---
Author Organization [facility] Address [address] [place] [address] Care Team Providers Care Landscape Horticulture Instructor Name Role Phone Shaw Oconnor DO Primary Care Provider Unavail able Antony Shore Unavailable [phone] REASON FOR VISIT LEFT HIP RECHECK Encounters Encounter Location Date Provider Diagnosis [facility] [address] [place] [address] 08/30/2024 Antony Shore Plan Of Treatment No Information Progress Notes * ASHLYN CHIN MDOB:1945 (79 yo F)Acc No.[id number]:08/30/2024 Patient:?ASHLYN CHIN :?CRUZITO YostOB:1945???Age:78 Y ???Sex:FemaleDate:08/30/2024Phone:[phone]:[address] [place] [address]Pcp:Shaw Oconnor DO Subjective: * Chief Complaints: * 1 . LEFT HIP RECHECK. * Medical History: Objective: * Vitals: Assessment: Plan: * Treatment: Forms: * Images: * Electronic signature of Antony Shore MD on 01/23/2025 at 10:41 AM ESTSign off status: Pending * Provider: June Shore MD Date: 0 08/30/2024 Generated for Printing/Faxing/eTransmitting on:?01/23/2025 10:41 AM EST
--- OUTSIDE RECORDS SUMMARY | 2025-01-12 09:00 | XMS_ITS | Encounter Summary ---
Author Organization [facility] Address [address] [place] [address] Care Team Providers Care Ordnance Corps Officer Name Role Phone Shaw Francois MD Primary Care Provider [phone] Shaw Francois MD Unavailable [phone] Reason for Visit * ReasonCommentsHypertension Encounter Details DateTypeDepartmentCare Team (Latest Contact Info)Wkuygtytyxs32/03/2025 9:00 AM ESTOffice Visit [facility] [address] [facility] [address] [place] [phone] Shaw Francois MD [address] [facility] 110 [place], [place] [phone] Benign essential hypertension (Primary Dx); Flu vaccine need; Statin intolerance; Myalgia Social History Tobacco UseTypesPacks/DayYears UsedDateSmoking Tobacco: NeverSmokeless Tobacco: NeverAlcohol UseStandard Drinks/WeekCommentsNever0 (1 standard drink = 0.6 oz pure alcohol)caffeine 1-2 cups per day, coffee:chocolateHumiliation, Afraid, Rape, and Kick questionnaireAnswerDate RecordedWithin the last year, have you been afraid of your partner or ex-partner?No10/09/2022Within the last year, have you been humiliated or emotionally abused in other ways by your partner or ex-partner?No10/09/2022Within the last year, have you been kicked, hit, slapped, or otherwise physically hurt by your partner or ex-partner?No10/09/2022Within the last year, have you been raped or forced to have any kind of sexual activity by your partner or ex-partner?10/09/2022Social Connection and Isolation Panel AnswerDate RecordedIn a typical week, how many times do you talk on the phone with family, friends, or neighbors?Once a week10/09/2022How often do you get together with friends or relatives?Once a week10/09/2022How often do you attend yazidi or yarsani services?Never10/09/2022o you belong to any clubs or organizations such as yazidi groups, unions, fraternal or athletic groups, or school groups?No10/09/2022How often do you attend meetings of the clubs or organizations you belong to?Never10/09/2022re you , , , , never , or living with a partner?Vigtidc5610/09/2022UDIT-C AnswerDate RecordedFrequency of Alcohol ConsumptionNot on file10/09/2022Q2: How many drinks containing alcohol do you have on a typical day when you are drinking?1 or Q3: How often do you have six or more drinks on one occasion?Never10/09/2022Overall Financial Resource Strain (CARDIA)AnswerDate RecordedHow hard is it for you to pay for the very basics like food, housing, medical care, and heating?Not hard at all10/09/2022HQ-2AnswerDate Recorded Patient Health Questionnaire-2 [facility] [place] [facility] - Occupational Stress QuestionnaireAnswerDate RecordedDo you feel stress - tense, restless, nervous, or anxious, or unable to sleep at night because your mind is troubled all the time - these days?Only a miuwro9810/09/2022Exercise Vital SignAnswerDate RecordedOn average, how many days per week do you engage in moderate to strenuous exercise (like a brisk walk)?0 days10/09/2022On average, how many minutes do you engage in exercise at this level?0 min10/09/2022Hunger Vital SignAnswerDate RecordedWithin the past 12 months, you worried that your food would run out before you got the money to buymore.Never true10/09/2022 Within the past 12 months, the food you bought just didn't last and you didn't have money to get more.Never true10/09/2022RAPARE - TransportationAnswerDate RecordedIn the past 12 months, has lack of transportation kept you from medical appointments or from getting medications?No10/09/2022In the past 12 months, has lack of transportation kept you from meetings, work, or from getting things needed for daily living?No10/09/2022Housing Stability Vital SignAnswerDate RecordedIn the last 12 months, was there a time when you were not able to pay the mortgage or rent on time?No10/09/2022In the last 12 months, how many places have you lived?In the last 12 months, was there a time when you did not have a steady place to sleep or slept in [facility] (including now)?No 10/09/2022CommentsUnknownSex and Gender InformationValueDate RecordedSex Assigned at BirthNot on fileLegal ZfwDiwsmc41/15/2023 7:19 PM EDTGender Identity Not on fileSexual OrientationNot on filedocumented as of this encounter Last Filed Vital Signs Vital SignReadingTime TakenCommentsBlood Qkhtdupd225/7001/12/2025 9:06 AM EST Vjpei313001/12/2025 9:06 AM ESTTemperature--Respiratory Rate--Oxygen Nhqvmavwfq85% 01/12/2025 9:06 AM ESTInhaled Oxygen Concentration--Sfaipx58.7 kg (169 lb) 01/12/2025 9:06 AM MYDXzmgsd997.2 cm (5' 7 )01/12/2025 9:06 AM ESTBody Mass Index26.4701/12/2025 9:06 AM ESTdocumented in this encounter Progress Notes * Shaw Francois MD - 01/12/2025 9:00 AM EST Images from the original note were not included. Subjective Patient ID: Nadia Almeida is a 79 y.o. female who presents for Hypertension. Hypertension Patient is here for follow-up of elevated blood pressure. Blood pressure is well controlled at home. Cardiac symptoms: none. Patient denies chest pain, claudication, dyspnea, irregular heart beat, lower extremity edema, near- syncope, orthopnea, palpitations, paroxysmal nocturnal dyspnea, syncope, and tachypnea. Cardiovascular risk factors: advanced age (older than 55 for men, 65 for women) and hypertension. Hypertension Current Outpatient Medications on File Prior to Visit Medication Sig Dispense Refill albuterol HFA (Ventolin HFA) 90 mcg/act inhaler Inhale 2 puffs every 4 (four) hours if needed for wheezing or shortness of breath 8.5 g 1 cholecalciferol (Vitamin D-3) 50 MCG (1999 UT) tablet 1 (one) time each day at the same time. GNP PAIN RELIEF EX-STRENGTH 500 MG tablet Take 1,000 mg by mouth every 6 (six) hours if needed for moderate pain levothyroxine (Synthroid, Levoxyl) 125 MCG tablet Take 1 tablet (125 mcg) by mouth in the morning. Take before meals. 100 tablet 3 losartan (Cozaar) 25 MG tablet TAKE 1 TABLET BY MOUTH IN THE MORNING 100 tablet 3 Multiple Vitamins-Minerals (CENTRUM SILVER ULTRA WOMENS PO) Centrum Silver sertraline (Zoloft) 100 MG tablet Take 0.5 tablets (50 mg) by mouth Daily (Patient taking differently: Take 100 mg by mouth Daily) 45 tablet 3 No current facility-administered medications [...] Past Medical History: Diagnosis Date Breast cancer (HCC) 2011 right; Dr. Beauchamp Depression Diarrhea Gallbladder disease Gastric ulcer Gastric ulcer History of being hospitalized 02/21/2024 Cellulitis and Abscess of Left Hip History of medical problems 2013 abnormal lesion, right forehead Inflamed seborrheic keratosis Inflamed seborrheic keratosis Multinodular goiter (nontoxic) Non-toxic multinodular goiter Osteopenia Osteopenia Rotator cuff tear 2003 right Past Surgical History: Procedure Laterality Date BREAST BIOPSY Right 2012 EGD 08/23/2016 DEXA SCAN 2014 HYSTERECTOMY 1974 IR ABLATION BONE 06/08/2018 Left C2-C5 MASTECTOMY Right 2012 NERVE BLOCK 01/30/2018 Left C3-C6 OTHER SURGICAL HISTORY 2013 excision of soft tissue mass seond intersace left foot WI EGD TRANSORAL BIOPSY SINGLE/MULTIPLE 05/23/2021 WI MOHS MICROGRAPHIC H/N/H/F/G 1ST STAGE 5 BLOCKS 05/18/2018 Left C2-5 THYROIDECTOMY 04/15/2020 TOTAL KNEE ARTHROPLASTY Right 09/01/2023 TOTAL THYROIDECTOMY 04/25/2020 Visit Vitals BP 126/70 Pulse 63 Ht 5' 7 Wt 169 lb SpO2 96% BMI 26.47 kg/m?? Smoking Status Never BSA 1.9 m?? Review of Systems Objective Physical Exam [...] orders for this visit: Benign essential hypertension - This is a chronic medical condition that is stable since last assessment. No changes in treatmentare suggested at this time. Flu vaccine need Statin intolerance Myalgia - Has intermittent muscle aches made worse by prior statin attempts. Other orders - Flu vaccine, high dose seasonal, PF ([id number]) (Fluzone High Dose) - Follow Up In Family Medicine; Future Follow up with Dr. Shaw Francois in 6 months (on 07/11/2025). documented in this encounter Plan of Treatment DateTypeDepartmentCare Team (Latest Contact Info)Xmxdnviwjda05/16/2025 9:15 AM ESTOffice Visit [facility] [address] [place] [place] [address] Ash Lee, DO [address] [place] [address] documented as of this encounter Visit Diagnoses Diagnosis Benign essential hypertension- Primary Essential hypertension, benign Flu vaccine need Statin intolerance Myalgia Unspecified myalgia and myositis documented in this encounter Care Teams Team MemberRelationshipSpecialtyStart DateEnd Date Shaw Francois MD [address] [place] [address] [place] [address] PCP - GeneralInternal Medicine07/23/22 Shaw Francois MD [address] [place] [address] PCP - Medical [place]02/10/2511documented as of this encounter
[2025-01-23 10:27] VITALS: BP 134/107; PULSE 75; TEMP 36.9; O2SAT 99; BMI 26.5
--- OUTSIDE RECORDS SUMMARY | 2025-01-23 10:41 | XMS_ITS | Encounter Summary ---
Author Organization [facility] Address [address] [place] [address] Care Team Providers Care Oracle Ebs Consultant Name Role Phone Shaw Francois MD Primary Care Provider [phone] Shaw Francois MD Unavailable [phone] Encounter Details DateTypeDepartmentCare Team (Latest Contact Info)Alrwgndiwky85/03/2025Travel Social History Tobacco UseTypesPacks/DayYears UsedDateSmoking Tobacco: NeverSmokeless [...] of sexual activity by your partner or ex-partner?No10/09/2022Social Connection and Isolation Panel AnswerDate RecordedIn a typical week, how many times do you talk on the phone with family, friends, or neighbors?Once a week10/09/2022How often do you get together with friends or relatives?Once a week10/09/2022How often do you attend voodoo or advent services?Never10/09/2022o you belong to any clubs or organizations such as voodoo groups, unions, fraternal or athletic groups, or school groups?No10/09/2022How often do you attend meetings of the clubs or organizations you belong to?Never10/09/2022re you , , , , never , or living with a partner?Zqowooi1310/09/2022UDIT-C AnswerDate RecordedFrequency of Alcohol ConsumptionNot on file10/09/2022Q2: [...] hard at all10/09/2022HQ-2AnswerDate Recorded Patient Health Questionnaire-2 Knuhg048Finencompass [facility] - Occupational Stress QuestionnaireAnswerDate RecordedDo you feel stress - tense, restless, nervous, or anxious, or unable to sleep at night because your mind is troubled all the time - these days?Only a gpodeb5910/09/2022Exercise Vital SignAnswerDate RecordedOn average, how many days [...] steady place to sleep or slept in ashelter (including now)?No 10/09/2022CommentsUnknownSex and Gender InformationValueDate RecordedSex Assigned at BirthNot on fileLegal QcdFznyul17/15/2023 7:19 PM EDTGender Identity Not on fileSexual OrientationNot on filedocumented as of this encounter Plan of Treatment DateTypeDepartmentCare Team (Latest Contact Info)Arxfqwyceja85/16/2025 9:15 AM ESTOffice Visit [facility] [address] [place] [address] Ash Lee, DO [address] [place] [address] documented as of this encounter Visit Diagnoses Not on filedocumented in this encounter Care Teams Team MemberRelationshipSpecialtyStart DateEnd Date Shaw Francois MD [address] [facility] [address] [place] [address] PCP - GeneralInternal Medicine07/23/22 Shaw Francois MD [address] [place] [address] PCP - Medical [place]02/10/2511documented as of this encounter
--- OUTSIDE RECORDS SUMMARY | 2025-01-23 10:41 | XMS_ITS | Patient Health Record ---
Author Organization [facility] Address [address] [place] [address] Care Team Providers Care [place] Manager Name Role Phone Shaw Oconnor DO Primary Care Provider Unavail able Mone Antony Unavailable [phone] xxZhang Neyda Unavailable Allergies Allergen (clinical drug ingredient) Drug/Non Drug Allergy documented on EMR Reaction Allergy Type Onset Date Status SULFA (uncoded)hivesAllergyActive Results Component Value Reference Range Notes SCC- HIP W/ PELVIS, LEFT 735 02 Reviewed date:04/29/2024 01:28:57 PM Interpretation: Performing Lab: Notes/Report: SCC- HIP W/ PELVIS, LEFT 735 02 Reviewed date:05/13/2024 03:17:47 PM Interpretation: Performing Lab: Notes/Report: NOTE Reviewed date:04/29/2024 01:30:15 PM Interpretation: Performing Lab: Notes/Report: Reason For Referral No Information Social History Tobacco Use: Social History Observation Description Date Details (start date - stop date) Never Smoker NA - NA AUDIT-C (Standard) Question Answer Notes Did you have a drink containing alcohol in the p ast year? No Pncfbz3AjlpczxxmpeepmRompnhthEpxoube Control (Standard) Question Answer Notes Tobacco use: Nonsmoker Problems Problem Type SNOMED Code ICD Code Onset Dates Problem Status W/U Status Risk Notes Problem Pain in wrist (83927959) Right wrist pain (M25.531) ActiveconfirmedProblemPain of left hip joint (finding) (112611527216429)Pain in left hip (M25.552)ActiveconfirmedProblemNonunion of fracture (810154852) Nondisplaced fracture of unspecified radial styloid process, subsequent encounter for closed fracture with nonunion (S52.516K)ActiveconfirmedProblem Closed fracture of neck of left femur (38462600578136912)Fracture of unspecified part of neck of left femur, subsequent encounter for closed fracture with ro utine healing (S72.002D)ActiveconfirmedProblemPain associated with internal prosthetic device (disorder) (855388909)Pain due to internal orthopedic prosthetic devices, implants and grafts, initial encounter (T84.84XA)Active confirmedProblemCellulitis of left lower limb (57519578875450697)Left leg cellulitis (L03.116)ActiveconfirmedProblemLocalized, primary osteoarthritis of the wrist (217583423)Arthritis of iwsfomiq-xfivgshow-nwvhvmqbd joint of right hand (M19.031)Activeconfirmed Vital Signs Height 5'7 in 07/19/2024 Tdrtml875 lbs5BMI26.62007/19/2024 Encounters Encounter Location Date Provider Diagnosis [facility] [address] [place] [address] 02/21/2024 [facility] Pain due to internal orthopedic prosthetic devices, implants and grafts, initial encounter T84.84XA ; Pain in left hip M25.552 ; Left leg cellulitis L03.116 and Fracture of unspecified part of neck of left femur, subsequent encounter for closed fracture with routine healing S72.002D [facility] [address] [place] [address] 02/24/2024 Antony Shore Infection following a procedure, superficial incisional surgical site, initial encounter T81.41XA and Closed displaced fracture of left femoral neck with routine healing S72.002D [facility] Office [address] [place] [address] 03/15/2024 Antony Shore Fracture of unspecified part of neck of left femur, subsequent encounter for closed fracture with routine healing S72.002D [facility] [address] [place] [address] 03/29/2024 Antony Shore Fracture of unspecified part of neck of left femur, subsequent encounter for closed fracture with routine healing S72.002D [facility] [address] [facility] [place] [address] 04/19/2024 Antony Shore Fracture of unspecified part of neck of left femur, subsequent encounter for closed fracture with routine healing S72.002D [facility] [address] [facility] [place] [address] 05/10/2024 Antony Shore Fracture of unspecified part of neck of left femur, subsequent encounter for closed fracture with routine healing S72.002D [facility] [address] [facility] [place] [address] 06/07/2024 Antony Shore Pain in left hip M25.552 ; Fracture of unspecified part of neck of left femur, subsequent encounter for closed fracture with routine healing S72.002D ; Pain due to internal orthopedic prosthetic devices, implants and grafts, initial encounter T84.84XA and Left leg cellulitis L03.116 [facility] [address] [facility] [place] [address] 06/28/2024 Neyda montes de ocaPicacho Left leg cellulitis L03.116 [facility] [facility] [address] [facility] [place] [address] 07/19/2024 Antony Shore Pain due to internal orthopedic prosthetic devices, implants and grafts, initial encounter T84.84XA and Fracture of unspecified part of neck of left femur, subsequent encounter for closed fracture with routine healing S72.002D [facility] [facility] [address] [place] [address] 09/06/2024 Antony Shore Pain in left hip M25.552 ; Fracture of unspecified part of neck of left femur, subsequent encounter for closed fracture with routine healing S72.002D ; Right wrist pain M25.531 ; Arthritis of rzmkhcco-ixrrsnesg-k rapezoid joint of right hand M19.031 and Nondisplaced fracture of unspecified radial styloid process, subsequent encounter for closed fracture with nonunion S52.516K [facility] [address] [place] [address] 05/13/2024 Antony Shore [facility] [address] [place] [address]/Antony [facility] [address] [place] [address]/ Antony Shore Assessments Encounter Date Diagnosis (ICD Code) Assessment Notes Treatment Notes Treatment Clinical Notes Section Notes 02/24/2024 Infection following a procedure, superficial incisional surgical site, initial encounter (ICD-10 - T81.41XA) 02/24/2024losed displaced fracture of left femoral neck with routine healing (ICD-10 - S72.002D)03/15/2024Fracture of unspecified part of neck of left femur, subsequent encounter for closed fracture with routine healing (ICD-10 - S72.002D)03/29/2024Fracture of unspecified part of neck of left femur, subsequent encounter for closed fracture with routine healing (ICD-10 - S72.002D)04/19/2024Fracture of unspecified part of neck of left femur, subsequent encounter for closed fracture with routine healing (ICD-10 - S72.002D)05/10/2024Fracture of unspecified part of neck of left femur, subsequent encounter for closed fracture with routine healing (ICD-10 - S72.002D)06/07/2024Pain in left hip (ICD-10 - M25.552)06/07/2024Fracture of unspecified part of neck of left femur, subsequent encounter for closed fracture with routine healing (ICD-10 - S72.002D)02/21/2024Pain in left hip (ICD-10 - M25.552)06/28/2024Left leg cellulitis (ICD-10 - L03.116)07/19/2024Fracture of unspecified part of neck of left femur, subsequent encounter for closed fracture with routine healing (ICD-10 - S72.002D)07/19/2024Pain due to internal orthopedic prosthetic devices, implants and grafts, initial encounter (ICD-10 - T84.84XA)02/21/2024Pain due to internal orthopedic prosthetic devices, implants and grafts, initial encounter (ICD-10 - T84.84XA)09/06/2024Pain in left hip (ICD-10 - M25.552)09/06/2024Fracture of unspecified part of neck of left femur, subsequent encounter for closed fracture with routine healing (ICD-10 - S72.002D)02/21/2024Left leg cellulitis (ICD-10 - L03.116)09/06/2024Right wrist pain (ICD-10 - M25.531)06/07/2024Pain due to internal orthopedic prosthetic devices, implants and grafts, initial encounter (ICD-10 - T84.84XA)06/07/2024 Left leg cellulitis (ICD-10 - L03.116)02/21/2024Fracture of unspecified part of neck of left femur, subsequent encounter for closed fracture with routine healing (ICD-10 - S72.002D)09/06/2024rthritis of rymxxzlq-uplrjlusx-wczndmvvg joint of right hand (ICD-10 - M19.031)09/06/2024Nondisplaced fracture of unspecified radial styloid process, subsequent encounter for closed fracture with nonunion (ICD-10 - S52.516K)03/15/2024Other Patient is doing well. Her antibiotics and wound VAC changes. Will follow-up in 2 weeks to repeat x-rays and reassess her progress. Import medication 03/29/2024Other Patient is doing well. We will discontinue her antibiotics. She will continue with wound VAC changes. She will follow-up in 3 weeks to reassess her wound. No x-rays at that time. Import medication 04/19/2024Other The patient is doing well. She will continue with home health 3 times a week visits for wound VAC changes. She will follow-up in 3 weeks to obtain x-rays of her left hip and reassess her wound. Import medication 05/10/2024Other Patient is doing well. I have discussed that I would expect another week to 2 weeks with the wound VAC and then will likely start dressing changes. She will follow-up in 4 weeks to reassess her progress. Import medication 06/07/2024Other Patient is doing well. We will change to a dry dressing change daily. She will follow-up in 3 weeksto reassess her progress. We will continue with home nursing twice a week to aid in dressing changes and evaluation of the wound. Import medication 06/28/2024OtherPatient continues to do well and I recommended to continue with the dry dressings with changes daily. We will have the home health nurse follow with her until it is completely closed which will likely be in a few weeks. We will see her back in 3 weeks for her next recheck.07/19/2024Other Patient's hip wound is completely healed. No sign of infection. Her pain since her fall is likely related to a contusion. No signs of fracture or implant loosening. We will see her back in 6 weeks and obtain x-rays if her pain persist. Import medication 09/06/2024Other Patient's left hip is doing well. Her right wrist she reports is minimally symptomatic and she doesnot desire any additional treatment. She will follow-up on an as-needed basis. Import medication Plan Of Treatment Pending Test Test Name Order Date Home Health 06/07/2024 SCC- HIP W/ PELVIS, LEFT 85848 SCC- WRIST 3 VIEW LEFT [id number] 09/06/2024 Insurance Providers Payer Name Payer Address Payer Phone Subscriber Number Group Number Insured Name Patient Relationship to Insured Coverage Start Date Coverage End Date Medicare [employer] [address] [place] [address] [phone] [id number] ASHLYN CHIN Self - patient is the insured Medicare [place] Ad[place] [address] [place] [phone] [id number], BETTYSelf - patient is the [id number] 2024
--- OUTSIDE RECORDS SUMMARY | 2025-01-23 10:41 | XMS_ITS | Clinical Summary ---
Author Organization [facility] Address [address] [place] [address] Care Team Providers Care Terrazzo Finisher Name Role Phone Shaw Francois MD Primary Care Provider [phone] Shaw Francois MD Unavailable [phone] Allergies Active AllergyReactionsCriticalityNoted DateCommentsNitrofurantoinUnknown 1Sulfa AntibioticsRash,Swelling,OdkfjtvNqpu47/07/2012 Unknown reaction Medications MedicationSigDispense QuantityRefillsLast FilledStart DateEnd DateStatus Multiple Vitamins-Minerals (CENTRUM SILVER ULTRA WOMENS PO) Centrum SilverActive cholecalciferol (Vitamin D-3) 50 MCG (1999 UT) tablet 1 (one) time each day at the same time.Active sertraline (Zoloft) 100 MG tablet Indications:Depressive disorderTake 0.5 tablets (50 mg) by mouth Daily 45 tablet 4Active Additional Information Patient taking differently: 100 mgOral Daily,Indications: Major Depressive Disorder, Reported on 01/12/2025 GNP PAIN RELIEF EX-STRENGTH 500 MG tablet Take 1,000 mg by mouth every 6 (six) hours if needed for moderate pain03/02/2024 Active losartan (Cozaar) 25 MG tablet Indications:Benign essential hypertensionTAKE 1 TABLET BY MOUTH IN THE MORNING 100 tablet 5Active levothyroxine (Synthroid, Levoxyl) 125 MCG tablet Indications:Postoperative hypothyroidismTake 1 tablet (125 mcg) by mouth in the morning. Take before meals. 100 tablet 5Active albuterol HFA (Ventolin HFA) 90 mcg/act inhaler Indications:Bronchospasm with bronchitis, acuteInhale 2 puffs every 4 (four) hours if needed for wheezing or shortness of breath 8.5 g 51ctive Active Problems ProblemNoted DateDiagnosed DateStatin jwyvtlxunye70/03/2025Dupuytren's contracture of left hand12/10/2024Major depressive disorder, single episode, in full cyiermpmb42/31/2025Left cervical izfzgdpmggeuq70/31/2861Sgjiaov78/07/2024 Smith's esophagus without ehlhoxwsw04/27/2023Other hammer toe(s) (acquired), right foot09/05/2022Unilateral primary osteoarthritis, left knee09/05/2022 History of breast kwkvjo0506/10/2022Unilateral primary osteoarthritis, right knee 12/08/2020ecreased estrogen level08/23/2020ostoperative hypothyroidism 07/26/2020Multinodular ntgnfz5711/30/2018Urinary qaklszrodqqm51/23/2019Osteopenia of multiple sites03/30/2018Memory xavsrsz3612/10/2017Cervical spondylosis without lteztfpprq43/15/2018 Overview (07/16/2024): Added automatically from request for surgery [id number] Displacement of cervical intervertebral disc without qlugonnwyk84/02/2018 Gastroesophageal reflux disease without eupfgdyrfos78/30/2016Right bundle branch block02/09/2016Acquired hammer toe of right foot01/19/2016Osteoarthritis of lumbar spine01/15/2016History of mnitheborbxl58/07/2016History of right ksujuefeoe60/06/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 usuarxy4104/17/2015Allergic rhinitis 04/14/2015Carcinoma in situ of jzjxzp9404/14/2015Carotid artery ljakilio37/04/2016 Benign essential hekvylywwhpa64/29/2015Depressive oeynoiuh94/29/2015Obstructive sleep apnea psjmxyjb86/29/2015 Resolved Problems ProblemNoted DateDiagnosed DateResolved DatePrimary hypercholesterolemia Encounters DateTypeDepartmentCare NipoHycvipxbbgr89/03/2025 9:00 AM ESTOffice Visit [facility] [address] [facility] [address] [place] [address] Shaw Francois MD Benign essential hypertension (Primary Dx); Flu vaccine need; Statin intolerance; Jjbkzuq2601/12/2025amboo flowsheet [facility] [address] [facility] [address] [place] [address] Shaw Francois MD 01/12/20251553Gdjtrw06/31/2025 11:45 AM EDTOffice Visit [facility] [address] [facility] [address] [place] [address] Shaw Francois MD Acute non-recurrent sinusitis, unspecified location (Primary Dx); Bronchospasm with bronchitis, acute; Major depressive disorder, single episode, in full remission; Dupuytren's contracture of left hand; Left cervical rwxthmscsuusc92/31/2025Bamboo flowsheet [facility] [address] [facility] [address] [place] [address] Shaw Francois MD 12/10/2024Travelfrom Last 3 Months Immunizations ImmunizationAdministration DatesNext DueInfluenza, High Dose Seasonal, Preservative Free01/12/2025,11/17/2018,11/24/2017,12/11/2016Influenza, High-dose Seasonal, Quadrivalent, Preservative Free12/03/2023Influenza, Seasonal, Quadrivalent, Dyestsggrh19/02/2022,11/17/2020Influenza, injectable, quadrivalent 11/28/2015Influenza, seasonal, wbanochmxm03/23/2023,11/24/20198869PTKY-OMY-9 (COVID- 19) vaccine, mRNA, spike protein, LNP, bivalent, preservative free, 30 mcg/0.3 mLdose, keely-sucrose bkpguncqcru58/18/2022 Family History Medical HistoryRelationNameCommentsMental illnessFatherCancerOthersiblings MelanomaNeg HxRelationNameStatusCommentsFatherDeceasedMotherDeceasedOther siblings Social History Tobacco UseTypesPacks/DayYears UsedDateSmoking Tobacco: NeverSmokeless Tobacco: Never Tobacco Cessation:Counseling Given: Yes Alcohol UseStandard Drinks/WeekCommentsNever0 (1 standard drink = 0.6 [...] otherwise physically hurt by your partner or ex-partner?10/09/2022Within the last year, have you been raped or forced to have any kind of sexual activity by your partner or ex-partner?10/09/2022Social Connection and Isolation Panel AnswerDate RecordedIn a typical week, how many times do you talk on the phone with family, friends, or neighbors?Once a week10/09/2022How often do you get together with friends or relatives?Once a week10/09/2022How often do you attend mormonism or sikhism services?Never10/09/2022o you belong to any clubs or organizations such as mormonism groups, unions, fraternal or athletic groups, or school groups?No10/09/2022How often do you attend meetings of the clubs or organizations you belong to?Never10/09/2022re you , , , , never , or living with a partner?Sgupxcd3810/09/2022UDIT-C AnswerDate RecordedFrequency of Alcohol ConsumptionNot on file10/09/2022Q2: [...] hard at all10/09/2022HQ-2AnswerDate Recorded Patient Health Questionnaire-2 Pksdx982FinD[facility] - Occupational Stress QuestionnaireAnswerDate RecordedDo you feel stress - tense, restless, nervous, or anxious, or unable to sleep at night because your mind is troubled all the time - these days?Only a pqjlxb5110/09/2022Exercise Vital SignAnswerDate RecordedOn average, how many days [...] steady place to sleep or slept in [facility] (including now)?No 10/09/2022CommentsUnknownSex and Gender InformationValueDate RecordedSex Assigned at BirthNot on fileLegal AtcBbupfe56/15/2023 7:19 PM EDTGender Identity Not on fileSexual OrientationNot on file Last Filed Vital Signs Vital SignReadingTime TakenCommentsBlood Qudneddg112/7012 9:06 AM EST Odmjr2901 9:06 AM MDDQtsqujjlwef15.6 ??C (97.8 ??F)12/10/2024 11:49 AM EDTRespiratory Xjsn186206/11/2024 9:39 AM EDTOxygen Yolopfzces16%01/12/2025 9:06 AM ESTInhaled Oxygen Concentration--Galymi69.7 kg (169 lb)01/12/2025 9:06 AM EST Rypdmm283.2 cm (5' 7 )01/12/2025 9:06 AM ESTBody Mass Index26.4701/12/2025 9:06 AM EST Plan of Treatment DateTypeDepartmentCare Team (Latest Contact Info)Knzmhfvwcrs62/16/2025 9:15 AM ESTOffice Visit [facility] [address] [place] [address] Ash Lee, DO [address] [place] [address] Health MaintenanceDue DateLast DoneCommentsPneumococcal Vaccine: 65+ Years (1 of 1 - PCV)11/09/1993COVID-19 Vaccine (2024- season)/, 03/31/2020, 03/10/2020Medicare Annual Wellness (AWV)605/03/2024, 12/16/2022Influenza GkjndwtQhyeamyxb50/03/2025, 12/03/2023, 12/02/2022, Additional history exists Insurance * Guarantor: Nadia Almeida TypeRelation to PatientDate of BirthPhone Billing AddressPersonal/GdvzewKdhn97[birth year][address] [address] Care Teams Team MemberRelationshipSpecialtyStart DateEnd Shaw Francois MD [address] [facility] [address] [place] [address] PCP - GeneralInternal Medicine07/23/22 Shaw Francois MD [address] [facility] [address] [place] [address] PCP - Medical [facility]02/10/2511
--- OUTSIDE RECORDS SUMMARY | 2025-01-23 10:41 | XMS_ITS | Clinical Summary ---
Author Organization [facility] Address [address] [facility], [address] [place] [address] Care Team Providers Care Hot Top Liner Name Role Phone Shaw Oconnor MD Primary Care Provider + [phone] Social History Tobacco UseTypesPacks/DayYears UsedDateSmoking Tobacco: Never Assessed CommentsUnknownSex and Gender InformationValueDate RecordedSex Assigned at Not on fileLegal SxtFdgkgh78/06/2024 9:44 AM ESTGender IdentityNot on fileSexual OrientationNot on file Plan of Treatment Health MaintenanceDue DateLast DoneCommentsDepression Uholqn2411/10/1955 DTaP/Tdap/Td vaccine (1 - Tdap)11/09/1962Shingles vaccine (1 of 2)11/09/1993 Respiratory Syncytial Virus (RSV) or age 60 yrs+ (1 - 1-dose 75+ series)11/09/2018Annual Wellness Visit (Medicare Advantage)02/11/2024Flu vaccine (#1)/, 12/02/2022, 11/29/2022, Additional history exists COVID-19 Vaccine ( season)/, 11/24/2020, 03/31/2020, Additional history existsPneumococcal 50+ years VaccineCompleted 12/07/2019, 11/11/2019, 07/11/2012DEXA (modify frequency per FRAX score) Xbirgpqnn67/03/2021, 03/23/2018Hepatitis A vaccineAged OutNo longer eligible based on patient's age to complete this topicHepatitis B vaccineAged OutNo longer eligible based on patient's age to complete this topicHib vaccineAged Out No longer eligible based on patient's age to complete this topicMeningococcal (ACWY) vaccineAged OutNo longer eligible based on patient's age to complete this topicMeningococcal B vaccineAged OutNo longer eligible based on patient's age to complete this topicPolio vaccineAged OutNo longer eligible based on patient's age to complete this topic Insurance Care Teams Team MemberRelationshipSpecialtyStart DateEnd Shaw Oconnor MD [address] [place] [address] PCP - GeneralFamily Ownadtnc15/6/24
--- OUTSIDE RECORDS SUMMARY | 2025-01-23 10:41 | XMS_ITS | Encounter Summary ---
Author Organization [facility] Address [address] [place] [address] Care Team Providers Care Dish Carrier Name Role Phone Shaw Francois MD Primary Care Provider [phone] Shaw Francois MD Unavailable [phone] Encounter Details DateTypeDepartmentCare Team (Latest Contact Info)Qqroydmxnzb61/03/2025Bamboo flowsheet [facility] [address] [place] [phone] Shaw Francois MD [address] [facility] [address] [place], [place] [id number] Social History Tobacco UseTypesPacks/DayYears UsedDateSmoking Tobacco: NeverSmokeless [...] otherwise physically hurt by your partner or ex-partner?No08/30/2023Within the last year, have you been raped or forced to have any kind of sexual activity by your partner or ex-partner?No10/09/2022Social Connection and Isolation Panel AnswerDate RecordedIn a typical week, how many times do you talk on the phone with family, friends, or neighbors?Once a week10/09/2022How often do you get together with friends or relatives?Once a week10/09/2022How often do you attend zoroastrian or yazdanism services?Never10/09/2022o you belong to any clubs or organizations such as zoroastrian groups, unions, [employer] or athletic groups, or school groups?No10/09/2022How often do you attend meetings of the clubs or organizations you belong to?Never10/09/2022re you , , , , never , or living with a partner?Wquviyi0610/09/2022UDIT-C AnswerDate RecordedFrequency of Alcohol ConsumptionNot on file10/09/2022Q2: [...] hard at all10/09/2022HQ-2AnswerDate Recorded Patient Health Questionnaire-2 Skwpp263[facility] [place] [facility] Occup[facility] - Occupational Stress QuestionnaireAnswerDate RecordedDo you feel stress - tense, restless, nervous, or anxious, or unable to sleep at night because your mind is troubled all the time - these days?Only a qghkfe3810/09/2022Exercise Vital SignAnswerDate RecordedOn average, how many days [...] InformationValueDate RecordedSex Assigned at BirthNot on fileLegal GqmQjapes40/15/2023 7:19 PM EDTGender Identity Not on fileSexual OrientationNot on filedocumented as of this encounter Plan of Treatment DateTypeDepartmentCare Team (Latest Contact Info)Cuegeduuqre87/16/2025 9:15 AM ESTOffice Visit [facility] [address] [place] [phone] Ash Lee, DO [address] [facility] [place] [address] documented as of this encounter Visit Diagnoses Not on filedocumented in this encounter Care Teams Team MemberRelationshipSpecialtyStart DateEnd Date Shaw Francois MD [address] [facility] [address] [place] [id number] PCP - GeneralInternal Medicine07/23/22 Shaw Francois MD [address] [facility] [address] [place] [phone] PCP - Medical [place] MA1/02/2511documented as of this encounter
--- OUTSIDE RECORDS SUMMARY | 2025-01-23 10:41 | XMS_ITS | Clinical Summary ---
Author Organization [facility] tem Address [id number] [address] [place] [address] Care Team Providers Care Line Patrolman Name Role Phone Shaw Francois MD Primary Care Provider [phone] Allergies Active AllergyReactionsCriticalityNoted DateCommentsSulfa (Sulfonamide Antibiotics)Facial GlxrjnpwRsbo60/29/2018 Unknown reaction Medications MedicationSigDispense QuantityRefillsLast FilledStart DateEnd DateStatus sertraline (ZOLOFT) 50 mg tablet Take 50 mg by mouth daily.Active raNITIdine (ZANTAC) 150 mg tablet Take 150 mg by mouth nightly.Active losartan (COZAAR) 25 mg tablet Take 25 mg by mouth daily.Active cholecalciferol, vitamin D3, 1,000 unit capsule Take 1,000 Units by mouth daily.Active naproxen sodium (ALEVE) 220 mg tablet Take 220 mg by mouth 2 (two) times a day with meals.Active ctorgpmougnw-wvzgfdoc-gophsj (CENTRUM SILVER) tablet Take 1 tablet by mouth.04/17/2011ctive levothyroxine (SYNTHROID, LEVOTHROID) 100 MCG tablet TAKE 1 TABLET BY MOUTH ONCE DAILY IN THE MORNING ON AN EMPTY STOMACH FOR 30 DAYS 03/13/2019Active Active Problems ProblemNoted DateDiagnosed DateCervical spondylosis without iesnroykth80/15/2018 Overview (11/24/2017): Added automatically from request for surgery [id number] Oxkvzvrwpu15/17/2014reast cancer, right bpxikh1204/19/2011 Family History RelationNameStatusCommentsFatherDeceasedMotherDeceased Social History Tobacco UseTypesPacks/DayYears UsedDateSmoking Tobacco: NeverSmokeless Tobacco: NeverAlcohol UseStandard Drinks/WeekCommentsNo0 (1 standard drink = 0.6 oz pure alcohol)ChildcareAnswerDate LhtdsrruJctbqvexzRpducuc64/12/2019EmploymentAnswer Date AgrvsdgzQlixulhmsyCsbzchc58/12/2019Purpose - LifeAnswerDate RecordedPurpose and direction in icbwAhwmdam46/11/2021CommentsNoSex and Gender InformationValueDate RecordedSex Assigned at BirthNot on fileLegal SexFemale 09/15/2014 11:27 AM EDTGender IdentityNot on fileSexual OrientationNot on file Last Filed Vital Signs Vital SignReadingTime TakenCommentsBlood Drofnonl788/71004/16/2019 11:45 AM EST Geqlk547704/16/2019 11:45 AM GKPWuvbdgsgonh59.4 ??C (97.6 ??F)04/16/2019 11:01 AM ESTRespiratory Jwwg722404/16/2019 11:45 AM ESTOxygen Avzrpyowon70%04/16/2019 11:45 AM ESTInhaled Oxygen Concentration--Vpgxga19.6 kg (175 lb 6.4 oz)02/19/2018 3:02 PM RTVYuvyax442.2 cm (5' 7 )12/16/2017 12:49 PM ESTBody Mass Index27.47 12/16/2017 12:49 PM EST Plan of Treatment Health MaintenanceDue DateLast DoneCommentsDepression Ppfiyjbcc06/30/1956Tobacco Efxikmnsy44/30/1956DTaP,Tdap and Td Vaccines (1 - Tdap)11/09/1962Zoster (Shingles) Vaccine (1 of 2)11/09/1962Fall Risk Wukrgxkwy13/30/2009RSV ( or age 60+ yrs) (1 - 1-dose 75+ series)11/09/2018Influenza Tycwqad4410/11/2024 Medical Devices ImplantedTypeAreaManufacturerDevice IdentifierShelf Expiration DateModel / Serial / LotLens 22.0 Diopter - [id number] - [id number] Implanted:Qty: 1 [facility]/13/2017 [facility] [id number] / [id number] / NALens 21.0 Diopter - [id number] - [id number] Implanted:Qty: 1 on [facility]/27/2017 [facility] [id number] / [id number] / N/A Insurance [address] [place] [address] Care Teams Team MemberRelationshipSpecialtyStart DateEnd Shaw Francois MD [address] [facility] [address] [place] [phone] PCP - GeneralInternal Medicine05/13/17
--- OUTSIDE RECORDS SUMMARY | 2025-01-23 10:41 | XMS_ITS | Clinical Summary ---
Author Organization [facility] Address [address] [place] [address] Care Team Providers Care Benzol Still Operator Name Role Phone Alessandro ARREDONDO MD, Shaw Carmona Primary Care Provider [phone] Allergies Active AllergyReactionsCriticalityNoted DateCommentsSulfa (Sulfonamide Antibiotics)Rash,EvqrryupCqpn16/07/2012 Medications MedicationSigDispense QuantityRefillsLast FilledStart DateEnd DateStatus sertraline (ZOLOFT) 50 mg tablet Take 1 tablet by mouth once daily.ctive Qfvpwjgwevksx-Fevulwto-Qbqcxi (CENTRUM SILVER) tab Take 1 tablet by mouth once daily. 90 tablet ctive Cholecalciferol, Vitamin D3, 25 mcg (1,000 unit) cap Take by mouth once daily.Active losartan (COZAAR) 25 mg tablet Take 25 mg by mouth once daily. 02/08/2015ctive RANITIDINE HCL (ZANTAC ORAL) Take by mouth.Active levothyroxine (SYNTHROID) 125 mcg tablet Take 125 mcg by mouth once daily. 03/13/2019Active omeprazole (PRILOSEC) 20 mg capsule Take 20 mg by mouth once daily. Takes every other day.Active Active Problems ProblemNoted DateDiagnosed DateHistory of breast bqznby8306/10/2022Osteopenia 07/27/2013reast cancer, right kpscdb1704/19/2011 Immunizations ImmunizationAdministration DatesNext Dueinfluenza (HD-IIV3) vaccine, age 65+ yr, high dose, trivalent, PF (FLUZONE HIGH-DOSE)11/14/2018,11/24/2017,12/11/2016 influenza (HD-IIV4) vaccine, age 65+ yr, high dose, quadrivalent, PF (FLUZONE HIGH-DOSE)12/07/2019influenza (IIV3) vaccine, trivalent (AFLURIA, FLULAVAL, FLUVIRIN, FLUZONE)11/24/2019influenza (IIV4) vaccine, age 6 mo - 64 yr, quadrivalent (AFLURIA, FLULAVAL, FLUZONE)11/28/2015influenza (IIV4) vaccine, quadrivalent (AFLURIA, FLULAVAL, FLUZONE)11/28/2015influenza (aIIV4) vaccine, age 65+ yr, quadrivalent, PF (FLUAD QUAD)11/17/2020influenza vaccine, whole virus11/28/2008pneumococcal conjugate (PCV13) vaccine, 13 valent (PREVNAR 13) 12/07/2019,11/11/2019pneumococcal polysaccharide (PPV23) vaccine, 23 valent (PNEUMOVAX 23)07/11/2012 Family History Medical HistoryRelationCommentslung cancer [Other]Brotherwith metestatic disease Breast CancerMaternal Auntdiagnosed in her 40'sProstate CancerMaternal GrandfatherBreast CancerOther 1maternal cousin diagnosed late s early 40s Breast CancerSisterother cancers [Other]Other 2no known family h/o: ovarian,uterine,colon,pancreatic,thyroid,brain,melenoma,leukemia,sarcomas RelationStatusCommentsBrotherMaternal AuntMaternal GrandfatherOther 1SisterOther 2 Social History Tobacco UseTypesPacks/DayYears UsedDateSmoking Tobacco: NeverSmokeless Tobacco: NeverAlcohol UseStandard Drinks/WeekCommentsYes0 (1 standard drink = 0.6 oz pure alcohol)once every 3 months a glassPHQ-2AnswerDate RecordedPHQ-2 score0 2019Area Deprivation IndexAnswerDate RecordedNational Score (1-100), lower number is lower tmgy593706/10/2022State Score (1-10), lower number is lower risk Not on file3Data from: https://www.neighborhoodatlas.[facility].edu/. Last address used for lvzboxbskos6000 3CommentsNoSex and Gender Information ValueDate RecordedSex Assigned at BirthNot on fileLegal EfvXdigva15/02/2012 9:58 AM ESTGender IdentityNot on fileSexual OrientationNot on file Last Filed Vital Signs Vital SignReadingTime TakenCommentsBlood Cecckjgc203/6305 10:20 AM EDT Rgfyz340706/10/2022 10:20 AM PKJPtvoddftmhn38.3 ??C (97.4 ??F)06/10/2022 10:20 AM EDTRespiratory Suro744606/10/2022 10:20 AM EDTOxygen Dpevrtcuoo80%06/10/2022 10:20 AM EDTInhaled Oxygen Concentration--Qbksxn82.7 kg (178 lb)06/10/2022 10:20 AM IWDBngjam272 cm (5' 6.14 )06/10/2022 10:20 AM EDTBody Mass Index28.61006/10/2022 10:20 AM EDT Plan of Treatment Health MaintenanceDue DateLast DoneCommentsAnxiety Alydcqtam71/30/1962Depression Nppqjxtxf04/30/1962DTaP,Tdap,Td Vaccine (1 - Tdap)11/09/1962Shingrix Vaccine (1 of 2)11/09/1993Bone Density Ierddvhdw80/30/2009RSV Vaccine (1 - 1-dose 75+ series)11/09/2018Advance Directive Hwgkyiseke71/01/2025Medicare Advantage Annual Wellness Visit02/11/2024Diabetes Lxdqmvpzi14/25/60080006/04/2021, 12/04/2020, 2019, Additional history existsCovid-19 Vaccine ( season) , 11/24/2020, 03/31/2020, Additional history existsInfluenza Vaccine (#1)511/03/2021, 11/17/2020, 11/16/2020, Additional history existsPneumococcal Vaccine: 50+Tbiliadpn37/27/2020, 11/11/2019, 02/08/2015, Additional history exists Procedures Procedure NamePriorityDate/TimeAssociated DiagnosisCommentsCOMPREHENSIVE METABOLIC GBXLTArnoypf30/25/2022 9:57 AM EDT Malignant 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, estrogen receptor positive, unspecified site of breast (HCC) Disorder of breast, unspecified from Last 3 Months or Most Recently Relevant to Health Maintenance Results * (ABNORMAL) COMP METABOLIC PANEL (06/04/2021 9:57 AM EDT)ComponentValueRef RangeTest MethodAnalysis TimePerformed AtPathologist SignatureProtein, Total 6.46.3 - 8.0 g/dL06/04/2021 10:50 AM EDTNORTSOU[facility]WE[facility] Albumin4.23.9 - 4.9 g/dL06/04/2021 10:50 AM EDTNOHE[facility] LABCalcium, Total9.38.5 - 10.2 mg/dL06/04/2021 10:50 AM EDTNOHE[facility] LABBilirubin, Total0.60.2 - 1.3 mg/dL06/04/2021 10:50 AM EDTNOHE[facility] LABAlkaline Jxiojenkdjo9173 - 123 U/L 06/04/2021 10:50 AM EDTNOHE[facility] KXIQHH9426 - 35 U/L 06/04/2021 10:50 AM [facility] QTLQNJ301 - 38 U/L 06/04/2021 10:50 AM EDTNOHE[facility] UFNYsvyqyk6973 - 99 mg/dL06/04/2021 10:50 AM [facility] LABComment: The [place] Diabetes Association (ADA) provides guidance for cutoff values for fasting glucose andrandom glucose. The ADA defines fasting as no [...] Standards of Medical Care in Diabetes 2016, [place] Diabetes Association. Diabetes Care. 2016.39(Suppl 1). AIK061 - 21 mg/dL06/04/2021 10:50 AM [facility] Creatinine0.850.58 - 0.96 mg/dL06/04/2021 10:50 AM [facility] KOPJdafcx465(H)136 - 144 mmol/L06/04/2021 10:50 AM [facility] LABPotassium3.83.7 - 5.1 mmol/L06/04/2021 10:50 AM [facility] TESIvghummm028(H)97 - 105 mmol/L06/04/2021 10:50 AM [facility] CMMLP67808 - 30 mmol/L06/04/2021 10:50 AM [facility] LABAnion Gah785 - 18 mmol/L 06/04/2021 10:50 AM [facility] LABEstimated Glomerular Filtration Rate71>=60 mL/min/1.73m 06/04/2021 10:50 AM [facility] LABComment:Estimated Glomerular Filtration Rate (eGFR) is calculated using the 2020 CKD-EPI creatinine equation. This equation utilizes serum creatinine, sex, and age as parameters. The creatinine assay has traceable calibration to isotope dilution- mass spectrometry. Refer to KDIGO guidelines for clinical interpretation. In patients with unstable renal function, e.g. those with acute kidney injury, the eGFRmay not accurately reflect actual GFR.Specimen (Source)Anatomical Location / LateralityCollection Method / VolumeCollection TimeReceived TimeBloodBLOOD SPECIMEN / UnknownVenipuncture / Yzgyuhm9706/04/2021 9:57 AM EDT06/04/2021 9:58 AM EDT Narrative Authorizing ProviderResult TypeResult StatusGarrett Zapata MDLABORATORYFinal ResultPerforming OrganizationAddressCity/State/ZIP CodePhone Number [facility] [address] [facility] [place] [address] from Last 3 Months or Most Recently Relevant to Health Maintenance Insurance Advance Directives TypeDate RecordedPatient RepresentativeExplanationAdvance Directive(s)06/03/2016 2:33 PM Care Teams Team MemberRelationshipSpecialtyStart DateEnd Date Shaw Francois II, MD [address] [place] [address] PCP - GeneralInternal Pdssjoua31/5/16
--- NOTE | 2025-01-23 10:44 | XR_ITS ---
[address] [address] Patient Name: ASHLYN CHIN MRN: [id number] date: 1945 Sex: F Assigned Patient Location: ER Current Patient Location: ER Accession/Order Number: [id number] Exam Date: 01/23/2025 11:00 Report Date: 01/23/2025 11:31 At the request of: RUTH ANN BAEZ MD Procedure: XR ribs RT min 3V w CXR1V XR ribs RT min 3V w CXR1V 01/23/2025 11:09 AM SIGNS AND SYMPTOMS: Fall, right wrist and hand pain, right-sided rib pain PROTOCOL: Frontal radiograph of the chest with oblique radiographs of the right ribs COMPARISON: None FINDINGS: The trachea is midline. Atherosclerotic changes are noted in the thoracic aorta. Surgical clips are noted in the base of the neck and along the right chest wall. The heart and mediastinal structures are within normal limits. The lung parenchyma is clear. The bony thorax is intact. No acute displaced fracture. XR/XR ribs RT min 3V w CXR1V IMPRESSION: No acute cardiopulmonary pathology. No acute displaced rib fracture. Impression dictated by: Ashwin Brown M.D. 01/23/2025 11:31 AM Dictation [facility] Electron[facility] authenticated by: [id number] Y Date: 01/23/2025 11:31
--- NOTE | 2025-01-23 10:44 | XR_ITS ---
The [place] [id number] Patient Name: ASHLYN CHIN MRN: [id number] date: 1945 Sex: F Assigned Patient Location: ER Current Patient Location: ER Accession/Order Number: [id number] Exam Date: 01/23/2025 11:00 Report Date: 01/23/2025 11:24 At the request of: RUTH ANN BAEZ MD Procedure: XR wrist RT min 3V XR wrist RT min 3V 01/23/2025 11:09 AM SIGNS AND SYMPTOMS: Fall, right wrist and hand pain, right-sided rib pain PROTOCOL: Frontal, lateral, and oblique radiographs of the right wrist COMPARISON: None FINDINGS: There is an impacted fracture of the distal radius with cortical buckling greatest along the dorsal aspect. There is mild narrowing of the radiocarpal joint space. Degenerative changes are noted at the scaphotrapezial junction. There is narrowing of the first carpometacarpal junction. XR/XR wrist RT min 3V IMPRESSION: There is an impacted fracture of the distal radius with cortical buckling greatest along the dorsal aspect. Degenerative changes are noted comment greatest at the base of the thumb and the scaphotrapezial joint. Impression dictated by: Ashwin Brown M.D. 01/23/2025 11:24 AM Dictation Location: [place] [address] Electronically authenticated by: [id number] Y Date: 01/23/2025 11:24
--- NOTE | 2025-01-23 10:44 | XR_ITS ---
The [address] [address] Patient Name: ASHLYN CHIN MRN: [id number] date: 1945 Sex: F Assigned Patient Location: ER Current Patient Location: ER Accession/Order Number: [id number] Exam Date: 01/23/2025 11:00 Report Date: 01/23/2025 11:27 At the request of: RUTH ANN BAEZ MD Procedure: XR hand RT min 3V XR hand RT min 3V 01/23/2025 11:09 AM SIGNS AND SYMPTOMS: Fall, right wrist pain PROTOCOL: Frontal, lateral, and oblique radiographs of the right hand COMPARISON: None FINDINGS: There is narrowing of the metacarpophalangeal joints, greatest in the second and third digits. Degenerative changes are also noted in the scaphotrapezial joint and first carpal metacarpal junction. There is an impacted fracture of the distal radius without intra-articular extension. No additional fractures. XR/XR hand RT min 3V IMPRESSION: There is an impacted fracture of the distal radius without intra-articular extension. No additional fractures. Impression dictated by: Ashwin Brown M.D. 01/23/2025 11:27 AM Dictation Location: [place] [address] Electronically authenticated by: [id number] Y Date: 01/23/2025 11:27
--- NOTE | 2025-01-23 10:46 | ED_ITS ---
HPI HPI - General Adult General Chief complaint: Fall Stated complaint: FALL POSSIBLE UPPER EXTREMITY INJURY Time Seen by Provider: 01/23/25 10:41 Source: patient Mode of arrival: walk-in Limitations: no limitations History of Present Illness HPI narrative: 79-year-old female presents for pain in her right wrist after a fall. She tripped on a carpet in her home and landed on her outstretched hand. She also complains of pain in the right rib area and the right fingers. She did not hit her head. No LOC. This fall happened today. Related Data Home Medications ?Medication ?Instructions ?Recorded ?Confirmed levothyroxine 125 mcg tablet 125 mcg PO .ACB 12/26/23 01/23/25 losartan 25 mg tablet 25 mg PO QAM 12/26/23 Previous Rx's ?Medication ?Instructions ?Recorded acetaminophen 500 mg tablet 1,000 mg (2 x 500 mg) PO Q 6H PRN 12/29/23 Pain Scale 4-6 3 days #12 tabs ceftriaxone 2 gram intravenous 2 g IV DAILY 03/02/24 solution vancomycin 1.5 gram/250 mL in 0.9 1.5 g (250 mL) IV Q2 4H 03/02/24 % sodium chloride intravenous Allergies Allergy/AdvReac Type Severity Reaction Status Date / Time Sulfa (Sulfonamide Allergy Intermediate Hives Verified 01/23/25 10:31 Antibiotics) Opioid HPI Opioid Management Most Recent Opioid Data: Last Pain Scale 9 Today, 10:27 Last Pain Intensity 6 02/28/24, 09:51 Last ORT Total Score 1 02/21/24, 14:06 Last ORT Risk Category Low Risk 02/21/24, 14:06 Review of Systems ROS Narrative A ten point review of systems is negative except as noted above. [facility] Medical History (Updated 01/23/25 @ 11:56 by Justin Fung MD) Hypothyroidism (acquired) ?E03.9 - Hypothyroidism, unspecified (ICD-10) Primary hypertension ?I10 - Essential (primary) hypertension (ICD-10) Closed hip fracture ?S72.009A - Fracture of unspecified part of neck of unspecified femur, initial encounter for closed fracture (ICD-10) UTI (urinary tract infection) ?N39.0 - Urinary tract infection, site not specified (ICD-10) Impacted cerumen of right ear ?H61.21 - Impacted cerumen, right ear (ICD-10) Cellulitis ?L03.90 - Cellulitis, unspecified (ICD-10) Depression ?F32.A - Depression, unspecified (ICD-10) Surgical History (Updated 02/24/24 @ 16:43 by Agnieszka Ramsey RN) H/O mastectomy ?Z90.10 - Acquired absence of unspecified breast and nipple (ICD-10) History of left hip hemiarthroplasty ?Z96.642 - Presence of left artificial hip joint (ICD-10) History of total right knee replacement ?Z96.651 - Presence of right artificial knee joint (ICD-10) Family History (Updated 02/21/24 @ 14:58 by Lizeth Diaz) Sister Family history of cancer Social History (Updated 02/21/24 @ 15:00 by Lizeth Diaz) Within the past year, how often did you have a drink containing alcohol: monthly or less Within the past year, how many standard drinks containing alcohol did you have on a typical day: 1 or 2 Within the past year, how often did you have six or more drinks on one occasion: never Total score: 0 Score interpretation: A score less than 3 is consistent with normal alcohol consumption. Smoking status: Never smoker Second hand tobacco smoke exposure: No Non-prescribed substance use: denies use Previous occupational history: Retired from [employer] Known occupational exposures/hazards: No Highest level of school completed/degree received: high school graduate Do you want help with school or training: No Are you now , , , , never or living with a partner: In a typical week, how many times do you talk on the telephone with family, friends, or neighbors: 3 or more times per week How often do you get together with friends or relatives: 3 or more times per week How often do you attend restorationism or faith services: 4 or more times per year Do you belong to any clubs or organizations such as restorationism groups unions, fraternal or athletic groups, or school groups: no Total score: 3 Score interpretation: A score of greater than or equal to 2 indicates the lowest level of social isolation. Little interest or pleasure in doing things: not at all Feeling down, depressed, or hopeless: not at all Feel stressed/tense/nervous/anxious/difficulty sleeping: only a little Life stressors: other Life stressor details: left hip and right knee issues Due to disability, difficulty making decisions: No Do you think of yourself as: straight/heterosexual Gender Identity: female Exam Narrative Exam Narrative: Nurses note and vital signs reviewed General:The patient appears well and in no apparent distress.Patient is resting comfortably on cart. Skin:Warm, dry, no pallor noted.There is no rash noted. Head:Normocephalic, atraumatic Eye: Normal conjunctiva, no drainage Ears, Nose, Mouth, and Throat: oral mucosa is moist. Nares patent. Cardiovascular:Regular Rate and Rhythm Respiratory: She has tenderness to the right inferior area of the anterior lateral rib region. There is no crepitus bruise or abrasion. No tenderness in the right upper quadrant. Breath sounds are equal Back:non-tender GI: Soft and nontender Musculoskeletal: The right wrist has some tenderness. No obvious deformity. Fingers have full range of motion. The right elbow is nontender. Neurological:A&O, normal speech Psychiatric:Cooperative Constitutional Vital Signs, click to edit/add: Last Vital Signs Temp 98.5 F 01/23/25 10:27 Pulse 75 01/23/25 10:27 Resp 15 01/23/25 10:27 BP 134/107 H 01/23/25 10:27 Pulse Ox 99 01/23/25 10:27 O2 Del Method Room Air 01/23/25 10:27 Course Vital Signs Vital signs: Vital Signs Temperature 98.5 F 01/23/25 10:27 Pulse Rate 75 01/23/25 10:27 Respiratory Rate 15 01/23/25 10:27 Blood Pressure 134/107 H 01/23/25 10:27 Pulse Oximetry 99 01/23/25 10:27 Oxygen Delivery Method Room Air 01/23/25 10:27 Temperature 98.5 F 01/23/25 10:27 Pulse Rate 75 01/23/25 10:27 Respiratory Rate 15 01/23/25 10:27 Blood Pressure 134/107 H 01/23/25 10:27 Pulse Oximetry 99 01/23/25 10:27 Oxygen Delivery Method Room Air 01/23/25 10:27 Medical Decision Making MDM Narrative Medical decision making narrative: No evidence of rib fracture. She has a distal radius fracture. The following procedure was performed by me. Short arm splint applied and she is neurovascular intact. Sling applied, application checked by me and found to be appropriate, she is neurovascular intact. She will follow-up with orthopedics and was recommended Tylenol for pain. Treatment diagnosis and follow-up were discussed thoroughly. Differential Diagnosis Differential Diagnosis: Sprained wrist, fractured wrist, chest contusion, rib fracture, pneumothora Imaging Data Right hand, right wrist, right ribs: Radiologist's impression: ITS Impressions Hand X-Ray 01/23/25 10:44 IMPRESSION: There is an impacted fracture of the distal radius without intra-articular extension. No additional fractures. Impression dictated by: Ashwin Brown M.D. 01/23/2025 11:27 AM Dictation Location: [facility] [employer] Electronically authenticated by: [id number] Y Date: 01/23/2025 11:27 Ribs X-Ray 01/23/25 10:44 IMPRESSION: No acute cardiopulmonary pathology. No acute displaced rib fracture. Impression dictated by: Ashwin Brown M.D. 01/23/2025 11:31 AM Dictation Location: [facility] [employer] Electronically authenticated by: [id number] Y Date: 01/23/2025 11:31 Wrist X-Ray 01/23/25 10:44 IMPRESSION: There is an impacted fracture of the distal radius with cortical buckling greatest along the dorsal aspect. Degenerative changes are noted comment greatest at the base of the thumb and the scaphotrapezial joint. Impression dictated by: Ashwin Brown M.D. 01/23/2025 11:24 AM Dictation Location: [facility] [employer] Electronically authenticated by: [id number] Y Date: 01/23/2025 11:24 Discharge Plan Discharge Chief Complaint: Fall Clinical Impression: Fracture of right wrist Patient Disposition: Home, Self-Care Time of Disposition Decision: 11:56 Condition: Good Mode of Transportation: Private Vehicle Prescriptions / Home Meds: No Action levothyroxine 125 mcg tablet 125 mcg PO .ACB losartan 25 mg tablet 25 mg PO QAM acetaminophen 500 mg Tablet 1,000 mg PO Q6H PRN (Reason: Pain Scale 4-6) 3 Days Qty: 12 0RF vancomycin in 0.9 % sodium chl 1.5 gram/250 mL solution 1.5 g IV Q24H ceftriaxone 2 gram recon soln 2 g IV DAILY Print Language: Spanish Instructions: Wrist Fracture in Adults (ED) Additional Instructions: Tylenol for pain. Elevate your wrist. Referrals: DOMINIC HERBERT [Primary Care Provider, Internal Medicine] - 1 week
[2025-01-23 12:10] VITALS: BP 130/70; PULSE 70; O2SAT 95
== END 2025-01-23 12:12 | disposition home or self-care (01) ==
PROVIDERS: Emergency Provider Emergency Medicine; PCP Internal Medicine
DX: S52.501A Unspecified fracture of the lower end of right radius, initial encounter for closed fracture (principal); W01.0XXA Fall on same level from slipping, tripping and stumbling without subsequent striking against object, initial encounter
CPT/HCPCS: 29125; 71101; 73110; 73130; 99284